=== PATIENT | female | born 1975 | race Caucasian/White ===

== ENCOUNTER 2020-11-12 13:21 | Outpatient (CLI) | payer OTHER, SELFPAY ==
--- NOTE | ~2020-11-12 | MMUS_ITS ---
EXAMINATION: MM diagnostic juventino BI w criss, US breast BI complete HISTORY: Breast pain and burning for 2 weeks after recent bug bite TECHNIQUE: Additional 3-D tomosynthesis images of the breasts were performed and synthetic 2-D images were generated. CAD analysis was submitted and interpreted. High resolution complete bilateral breas t ultrasound was performed. COMPARISON: No prior studies for comparison. BREAST PARENCHYMAL COMPOSITION: The breasts are heterogenously dense, which may obscure small masses. FINDINGS: MAMMOGRAPHIC FINDINGS: There are no suspicious masses, calcifications or architectural distortion in either breast to sugges t malignancy. ULTRASOUND: Complete bilateral breast ultrasound including all 4 quadrants: Normal heterogeneous echotexture with out focal solid or cystic mass. IMPRESSION: 1. No evidence for malignancy in either breast. 2. Routine yearly screening mammogram and regular clinical breast examination are recommended. BI-RADS Category 1: Negative Reviewed, dictated and finalized at location A. IMPRESSION: 1. No evidence for malignancy in either breast. 2. Routine yearly screening mammogram and regular clinical breast examination a re recommended. BI-RADS Category 1: Negative
== END 2020-11-12 13:22 | disposition home or self-care (01) ==
PROVIDERS: Visit Provider Nurse Practitioner
DX: N64.4 Mastodynia (principal)
CPT/HCPCS: 76641; 77062; 77066; G0279

== ENCOUNTER 2021-12-04 13:12 | Emergency (ER) | payer OTHER, SELFPAY ==
[2021-12-04 13:21] VITALS: BP 124/71; PULSE 83; RESP 18; TEMP 36.6; O2SAT 99
--- NOTE | 2021-12-04 14:02 | ED.ABDPAIN ---
HPI - Abdominal Pain General Chief Complaint: Abdominal Pain Stated Complaint: headache,abdominal pain Time Seen by Provider: 12/04/21 13:25 Source: patient and RN notes reviewed Mode of arrival: ambulatory Limitations: no limitations History of Present Illness HPI narrative: Patient presents today complaining of nausea, vomiting, diarrhea, abdominal pain, and headache since yesterday. She had 3 episodes of vomiting and diarrhea yesterday. She has had 2 episodes of diarrhea today with no vomiting, but persistent nausea. Denies any blood or mucus in her stool. Associated symptoms include body aches, fatigue, subjective fever, but states her thermometer never read a real fever. Reports that her daughter had similar symptoms last week and was told that she had a viral illness. Her abdominal pain is located on the left side and she currently rates it 5/10. She has a generalized headache that she currently rates 6/10 and had some intermittent blurred vision associated with it today. She initially confirms that this is her worst headache ever, but rescinds this when further questioned. States she used to have migraines for which she took Imitrex, but has not had a migraine for over 15 years. Denies dizziness, lightheadedness, photophobia. Patient has been taking some ibuprofen and Tylenol for her headache with some mild relief. History of irritable bowel syndrome. Related Data Home Medications Medication Instructions Recorded Confirmed amitriptyline 25 mg PO HS 12/04/21 12/04/21 buspirone 5 mg PO TID 12/04/21 12/04/21 cyanocobalamin (vitamin B-12) 1,000 mcg PO DAILY 12/04/21 12/04/21 ergocalciferol (vitamin D2) 1,250 mcg PO WEEKLY 12/04/21 12/04/21 Allergies Allergy/AdvReac Type Severity Reaction Status Date / Time metoclopramide [From Reglan] Allergy Unknown Verified 12/04/21 13:30 fluoxetine AdvReac Unknown DIARRHEA Verified 12/04/21 13:30 sertraline AdvReac Unknown INTENSIFIES Verified 12/04/21 13:30 ANXIETY Review of Systems Review of Systems: CONSTITUTIONAL: Denies chills, or sweats.+ Subjective fever, fatigue, body aches EYES: Denies redness, or discharge.+ Blurred vision ENT: Denies rhinorrhea, congestion, sore throat, or otalgia. CARDIOVASCULAR: Denies chest pain, palpitations, or edema. RESPIRATORY: Denies cough or dyspnea. GASTROINTESTINAL: + Abdominal pain, nausea, vomiting, diarrhea GENITOURINARY: Denies dysuria or hematuria. SKIN: Denies rash, itching, or wounds. MUSCULOSKELETAL: Denies back pain, joint pain, or myalgia. NEUROLOGIC: Denies numbness, tingling, or weakness.+ Headache PSYCH: Denies depression or anxiety. [facility] Past Medical History Medical History (Updated 12/04/21 @ 14:13 by Tatiana Calderon, LEGAL EXECUTIVE, ) History of migraine Irritable bowel syndrome Comments At time of signature, I have reviewed and agree with nursing past medical, surgical, social and family history unless otherwise noted. Please see nursing chart for further information. There is no relevant family history pertinent to the presenting complaint Exam Narrative: GENERAL: Well-appearing, well-nourished, and in no acute distress. HEAD: Normocephalic, atraumatic. EYES: EOMI. PERRL. No redness or drainage. Conjunctivae normal. ENT: Mucous membranes pink and moist. NECK: Normal AROM. Supple. No lymphadenopathy. CHEST: No respiratory distress. Clear to auscultation. HEART: Regular rate and rhythm. No murmur appreciated. Normal peripheral pulses. ABDOMEN: Soft, nondistended, normal active bowel sounds. Tenderness to epigastrium and left lower quadrant without rebound or guarding. MUSCULOSKELETAL: No bony tenderness. EXTREMITIES: Normal range of motion. No edema. SKIN: Warm, dry, no rash. Capillary refill normal. Normal skin turgor. NEURO: No focal deficits. Alert and oriented x3. Gait steady. PSYCH: Normal affect. No signs of depression or anxiety. Course Course Emergency Course: At this time I feel it appropr
== END 2021-12-04 14:06 | disposition left against medical advice (07) ==
PROVIDERS: Emergency Provider Nurse Practitioner; PCP Family Medicine
DX: R10.32 Left lower quadrant pain (principal); R51.9 Headache, unspecified
CPT/HCPCS: 81003; 99213; G0463

== ENCOUNTER 2022-09-15 21:59 | Emergency (ER) | payer OTHER, SELFPAY ==
--- NOTE | ~2022-09-15 | CT_ITS ---
EXAMINATION: CT abdomen pelvis w con INDICATION: Nausea, vomiting, diarrhea TECHNIQUE: Computed tomographic images of the abdomen and pelvis were obtained after the administrati on of 100 cc of Omnipaque 350 intravenous contrast. The dose-length product (DLP) was 316.78 mGy-cm. Automated exposure control and iterative reconstruction technique were employed. COMPARISON: None available FINDINGS: Minimal dependent atelectasis is present in the lung bases. The heart size is normal. The g allbladder is surgically absent. The liver, spleen, pancreas, and adrenal glands are normal. The kidn eys are unremarkable. No pathologically enlarged abdominal or pelvic lymph nodes are identified. No f ree intraperitoneal gas or evidence of bowel obstruction. There is liquid stool throughout the colon to the level of the rectum. There is a greater than normal number of fluid-filled, nondistended small bowel loops. IMPRESSION: 1. CT findings suggestive of enterocolitis. Reviewed, dictated and finalized at location B. [facility] [employer]
[2022-09-15 22:02] VITALS: BP 116/95; PULSE 80; RESP 20; TEMP 36.9; O2SAT 98
[2022-09-16] VITALS (19 sets, daily range): BP systolic 108–129; BP diastolic 58–89; PULSE 76–93; RESP 14–24; O2SAT 94–100
[2022-09-16 00:39] LABS: Basophils Percent Auto 0.2 % (0.2-1.2); Eosinophils Percent Auto 0.2 % (0-4.4); Hematocrit 44.9 % (37.0-47.0); Hemoglobin 15.3 g/dL (12.0-15.0); Immature Granulocyte Absolute 0.07 K/mm3 (0.00-0.031); Immature Granulocyte Percent A 0.5 % (0-0.5); Lymphocytes Absolute Auto 0.73 K/mm3 (0.9-3.2); Lymphocytes Percent Auto 5.2 % (18.3-44.2); Mean Corpuscular HGB Conc 34.1 g/dl (32-36); Mean Corpuscular Hemoglobin 30.5 pg (26-34); Mean Corpuscular Volume 89.4 fl (80-100); Mean Platelet Volume 8.8 fl (7.4-10.4); Monocytes Absolute Auto 0.5 K/mm3 (0.1-0.6); Monocytes Percent Auto 3.4 % (2.6-8.5); Neutrophils Absolute Auto 12.8 K/mm3 (1.3-6.7); Neutrophils Percent Auto 90.5 % (45.5-73.1); Platelet Count Result 345 k/mm3 (150-375); Red Blood Count 5.02 M/mm3 (4.2-5.4); Red Cell Distribution Width 13.1 % (11.5-14.5); White Blood Count 14.1 K/mm3 (4.5-10.0)
[2022-09-16 00:42] LABS: Appearance Urine Slightly Cloudy (Clear); Bilirubin Urine 1+ (Negative); Blood Urine 1+ (Negative); Color Urine Yellow (Yellow); Glucose Urine UA Negative (Negative); Ketones Urine Trace mg/dL (Negative); Leukocyte Esterase Ur Negative LEU/UL (Negative); Nitrate Urine Negative (Negative); Protein Urine 1+ mg/dL (Negative); Specific Grav Ur 1.025 (1.001-1.035); Urobilinogen Urine 0.2 mg/dL (<2.0)
[2022-09-16 00:49] LABS: Alanine Aminotransferase 27 U/L (6-35); Albumin Level 4.8 g/dL (3.5-5.1); Alkaline Phosphatase 102 U/L (38-126); Anion Gap 8 mmol/L (8-16); Aspartate Amino Transferase 26 U/L (14-36); Bilirubin,Total 0.7 mg/dL (0.2-1.3); Blood Urea Nitrogen 15 mg/dL (7-17); Calcium 8.8 mg/dL (8.4-10.2); Carbon Dioxide 27 mmol/L (22-30); Chloride 104 mmol/L (98-107); Estimated CRCL calculation 79 ml/min; Estimated Glomerular Filt Rate > 60; Glucose 117 mg/dL (65-110); Lipase 41 U/L (23-300); Potassium 3.5 mmol/L (3.4-5.0); Sodium 139 mmol/L (137-145)
[2022-09-16 00:55] LABS: Bacteria Urine 1+ /hpf; Mucus Urine Rare /lpf; Squamous Epithelial Cell Urine Moderate /hpf (Few); WBC Urine 0-3 /hpf
[2022-09-16 01:26] LABS: Add Urine Microscopic? YES
[2022-09-16] MEDS: SODIUM CHLORIDE 0.9% IV 1,000 ML 999 ML IV CONT ×2 (01:41→03:06)
[2022-09-16] MEDS: ONDANSETRON INJ 4 MG/2 ML VIAL IV PUSH (01:42)
[2022-09-16] MEDS: MORPHINE SULFATE (*CRX) 4 MG/ML INJ IV PUSH (01:44)
[2022-09-16] MEDS: PANTOPRAZOLE SODIUM IV 40 MG VIAL IV PUSH (01:45)
--- NOTE | 2022-09-16 01:54 | ED.NAVMDI ---
HPI - Nausea/Vomiting/Diarrhea General Chief complaint: Nausea/Vomiting/Diarrhea Stated complaint: vomiting/diarrhea Time Seen by Provider: 09/16/22 00:17 Source: patient Mode of arrival: ambulatory Limitations: no limitations History of Present Illness HPI Narrative: Patient is a 47-year-old female, with PMHx of IBS, who presents the ED with report of N/V/D. Patient reports she felt fine all day today and ate a salad from the hospital cafeteria. She developed diarrhea around 4 PM, along with diffuse epigastric and lower abdominal pain. She later developed nausea and vomiting and has had several episodes of diarrhea and vomiting. She tried taking a p.o. Zofran at home with minimal relief. Pain has persisted, which prompted her presentation. Patient has not tried anything for pain. Denies any fever, rectal bleeding, melena, hematemesis, urinary symptoms, recent cough or cold symptoms. Related Data Home Medications Medication Instructions Recorded Confirmed amitriptyline 25 mg tablet 25 mg PO HS 12/04/21 12/04/21 buspirone 5 mg tablet 5 mg PO TID 12/04/21 12/04/21 cyanocobalamin (vitamin B-12) 1,000 mcg PO DAILY 12/04/21 12/04/21 1,000 mcg tablet ergocalciferol (vitamin D2) 1,250 1,250 mcg PO WEEKLY 12/04/21 12/04/21 mcg (50,000 unit) capsule Allergies Allergy/AdvReac Type Severity Reaction Status Date / Time metoclopramide [From Reglan] Allergy Unknown Verified 09/15/22 22:01 sertraline AdvReac Unknown INTENSIFIES Verified 09/15/22 22:01 ANXIETY Review of Systems Review of Systems: CONSTITUTIONAL: Denies fever, chills, or sweats. CARDIOVASCULAR: Denies chest pain. RESPIRATORY: Denies cough or dyspnea. GASTROINTESTINAL: See HPI. GENITOURINARY: Denies dysuria or hematuria. All systems reviewed & are unremarkable except as noted in HPI and below PMFSH Past Medical History Medical History History of migraine Irritable bowel syndrome Surgical History Surgical History No pertinent past surgical history Social History Social History Smoking status: Never smoker Exam Narrative: GENERAL: Mildly ill appearing, well-nourished, non-toxic, in no acute distress. HEAD: Normocephalic, atraumatic. NECK: Supple. No adenopathy, no masses. RESPIRATORY: Airway patent, respirations nonlabored. Clear to auscultation bilaterally, no rales, rhonchi, wheezing. CARDIOVASCULAR: Regular rate and rhythm without murmurs, rubs, or gallops. Peripheral pulses 2+ and equal bilaterally. ABDOMINAL: Soft, tenderness to palpation in epigastric/right upper quadrant/right lower quadrant, nondistended, no hepatosplenomegaly. Normoactive BS. MUSCULOSKELETAL: Moves all extremities. Strength/ROM intact without gross deformities. SKIN: Warm, dry, normal color. No rashes. NEURO: A&O X3. Speech clear. Cranial nerves II-XII grossly intact. Steady gait. No ataxic movements. PSYCHIATRIC: Appropriate mood and affect. Normal interaction. Course Vital Signs Vital signs: Vital Signs Temperature 98.4 F 09/15/22 22:02 Pulse Rate 80 09/15/22 22:02 Respiratory Rate 20 09/15/22 22:02 Blood Pressure 116/95 H 09/15/22 22:02 Pulse Oximetry 98 09/15/22 22:02 Oxygen Delivery Room Air 09/15/22 22:02 Temperature 98.4 F 09/15/22 22:02 Pulse Rate 83 09/16/22 03:01 Respiratory Rate 19 09/16/22 03:01 Blood Pressure 108/58 L 09/16/22 01:49 Pulse Oximetry 94 09/16/22 03:01 Oxygen Delivery Room Air 09/15/22 22:02 MDM - Nausea/Vomiting/Diarrhea MDM Narrative Medical decision making narrative: Patient presented to ED with 1 day history of abdominal pain, N/V/D. Patient's vital stable upon arrival. Several areas of tenderness on abdominal exam. CBC with mild leukocytosis of 14.1, could be slightly reactive from recent vomiting. CMP
[2022-09-16] MEDS: AMOXICILLIN/CLAVULANATE K 875-125 MG TAB 1 TABLET PO (04:49)
== END 2022-09-16 05:10 | disposition home or self-care (01) ==
PROVIDERS: Emergency Medicine; Emergency Provider Physician Assistant; PCP Family Medicine
DX: K52.9 Noninfective gastroenteritis and colitis, unspecified (principal); K58.9 Irritable bowel syndrome, unspecified
CPT/HCPCS: 36415; 74177; 80053; 81001; 81025; 83690; 85025; 96361; 96374; 96375; 99284; A9270; C9113; J2270; J2405; J7030; Q9967

== ENCOUNTER 2022-10-01 11:25 | Outpatient (CLI) | payer OTHER, SELFPAY ==
[2022-10-06 14:10] LABS: Gliadin AB, IgG <1.0 U/mL (<15.0); TTG IGA AB <1.0 U/mL (<15.0)
== END 2022-10-01 11:26 | disposition home or self-care (01) ==
LOC: ANHLAB 11:27
PROVIDERS: PCP Family Medicine; Visit Provider Nurse Practitioner
DX: K58.0 Irritable bowel syndrome with diarrhea (principal)
CPT/HCPCS: 36415; 83516; 86255

== ENCOUNTER → 2023-02-25 08:09 | Outpatient (CLI) | payer OTHER, SELFPAY ==
--- NOTE | ~2023-02-25 | MMUS_ITS ---
EXAMINATION: MM diagnostic juventino BI w criss, US breast RT limited HISTORY: Palpable lump of the upper right breast at 12:00 TECHNIQUE: Craniocaudal, mediolateral, and mediolateral oblique 3-D tomosynthesis images of the andrea ts were performed and synthetic 2-D images were generated. CAD analysis was submitted and interpreted . High resolution limited right breast ultrasound was performed. COMPARISON: 11/12/2020 BREAST PARENCHYMAL COMPOSITION: The breasts are heterogeneously dense, which may obscure small masses . FINDINGS: MAMMOGRAPHIC FINDINGS: No suspicious mass, calcification, or architectural distortion are identified in either breast to sug gest malignancy. There has been no suspicious interval change. No mammographic correlate is identifie d for the reported palpable abnormality of the right breast. ULTRASOUND: There is no evidence of focal abnormal solid or cystic mass in the vicinity of the reported palpable abnormality of the right breast. IMPRESSION: 1. No specific mammographic or sonographic correlate is identified for the reported palpable abnormal ity of concern concern in the right breast. Further evaluation at this time should be based on clinic al assessment. Continued follow-up physical examination is recommended. 2. Recommend routine screening mammography in one year. BI-RADS Category 1: Negative Reviewed, dictated and finalized at location A. IMPRESSION: 1. No specific mammographic or sonographic correlate is identified for the repo rted palpable abnormality of concern concern in the right breast. Further evalu ation at this time should be based on clinical assessment. Continued follow-up physical examination is recommended. 2. Recommend routine screening mammography in one year. BI-RADS Category 1: Negative
== END ==
PROVIDERS: PCP Family Medicine; Visit Provider Obstetrics & Gynecology
DX: N63.10 Unspecified lump in the right breast, unspecified quadrant (principal)
CPT/HCPCS: 76642; 77062; 77066; G0279

== ENCOUNTER 2023-07-01 17:06 | Outpatient (CLI) | payer OTHER, SELFPAY ==
[2023-07-05 08:59] LABS: LH 9.7
[2023-07-05 09:00] LABS: FSH 17.7
[2023-07-05 09:02] LABS: Progesterone 0.5
[2023-07-05 09:31] LABS: Sex Hormone Binding Globulin 16
[2023-07-05 09:32] LABS: DHEA-Sulfate 295
[2023-07-07 16:06] LABS: Testosterone Free 5.4; Testosterone Total 29
[2023-07-11 09:09] LABS: Estradiol, Ultrasensitive 59
== END 2023-07-01 17:07 | disposition home or self-care (01) ==
LOC: ANHLAB 17:07
PROVIDERS: PCP Family Medicine; Visit Provider Obstetrics & Gynecology
DX: N93.9 Abnormal uterine and vaginal bleeding, unspecified (principal)
CPT/HCPCS: 36415; 82627; 82670; 83001; 83002; 84144; 84146; 84270; 84402; 84403; 84443

== ENCOUNTER 2023-09-14 21:06 | Emergency (ER) | payer OTHER, SELFPAY ==
[2023-09-14 21:18] VITALS: BP 144/73; PULSE 89; RESP 18; TEMP 36.6; O2SAT 100
[2023-09-14 21:35] VITALS: O2SAT 100
[2023-09-14 21:52] LABS: Strep Group A RT-PCR NOT DETECTED (Negative)
[2023-09-14 22:06] LABS: Influenza A QL RT-PCR Positive (Negative); Influenza B QL RT-PCR Negative (Negative); RSV RNA, RT-PCR Negative (Negative); SARS-CoV-2 RNA PCR Negative (Negative)
--- NOTE | 2023-09-14 22:49 | ED.GENADULT ---
HPI - General Adult General Chief complaint: Upper Respiratory Infection Stated complaint: fever, nauseaous, bodyaches, sore throat Time Seen by Provider: 09/14/23 21:56 Source: patient Mode of arrival: ambulatory Limitations: no limitations History of Present Illness HPI narrative: This is a 48-year-old female who presents to the ED with chief complaint of URI symptoms for the past 3 days. Reports cough, congestion, sore throat, fevers and chills. She reports being at around someone who was known to have flu A. 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 Denies abdominal pain, chest pain, shortness of breath, neck pain. Related Data Home Medications Medication Instructions Recorded Confirmed amitriptyline 25 mg tablet 25 mg PO HS 12/04/21 10/01/22 buspirone 5 mg tablet 5 mg PO TID 12/04/21 10/01/22 cyanocobalamin (vitamin B-12) 1,000 mcg PO DAILY 12/04/21 10/01/22 1,000 mcg tablet ergocalciferol (vitamin D2) 1,250 1,250 mcg PO WEEKLY 12/04/21 10/01/22 mcg (50,000 unit) capsule Allergies Allergy/AdvReac Type Severity Reaction Status Date / Time metoclopramide [From Reglan] Allergy Unknown Verified 10/01/22 10:32 sertraline AdvReac Unknown INTENSIFIES Verified 10/01/22 10:32 ANXIETY Review of Systems Review of Systems: All systems as dictated in [facility] Past Medical History Medical History (Updated 09/15/23 @ 00:00 by Background Daemon) Belching Dyspepsia Enterocolitis Gas bloat syndrome History of migraine Irritable bowel syndrome Irritable bowel syndrome with diarrhea Obesity Surgical History Surgical History No pertinent past surgical history Social History Social History Smoking status: Never smoker Exam Narrative: GENERAL: Well-appearing, well-nourished, and in no acute distress. HEAD: Normocephalic, atraumatic. EYES: PERRLA and EOMI. ENT: Nares clear, no rhinorrhea or epistaxis. Mucous membranes moist. Oropharynx without tonsillar hypertrophy exudate or other lesions. NECK: Supple. No adenopathy or masses. CHEST: No respiratory distress. Clear to auscultation. No wheezes rales or rhonchi HEART: Regular rate and rhythm. No murmur heard. Normal peripheral pulses. ABDOMEN: Soft, nontender, nondistended, normal active bowel sounds. MSK: Normal range of motion. No edema. SKIN: Warm, dry, no rash. NEURO: Alert and oriented x3. No focal deficits. PSYCH: Normal mood and affect. Course Vital Signs Vital signs: Vital Signs Temperature 97.9 F 09/14/23 21:18 Pulse Rate 89 09/14/23 21:18 Respiratory Rate 18 09/14/23 21:18 Blood Pressure 144/73 H 09/14/23 21:18 Pulse Oximetry 100 09/14/23 21:18 Oxygen Delivery Room Air 09/14/23 21:18 Temperature 98.7 F 09/14/23 23:12 Pulse Rate 71 09/14/23 23:12 Respiratory Rate 15 09/14/23 23:12 Blood Pressure 126/78 09/14/23 23:12 Pulse Oximetry 100 09/14/23 23:12 Oxygen Delivery Room Air 09/14/23 21:35 Medical Decision Making MDM Narrative Medical decision making narrative: This is a 48-year-old female with URI and flu-like symptoms for the past several days. Patient's daughter was recently diagnosed with flu A. Vitals are normal. Exam is benign. Symptoms are consistent with viral syndrome. Swabs are positive for flu A. She is oxygenating well. Pt will be discharged in stable condition. Return precautions given and supportive measures discussed. Pt is understanding and agreeable with plan for discharge and follow-up with PCP. Vital Signs Vital Signs: Vital Signs Temperature 97.9 F 09/14/23 21:18 Pulse Rate 89 09/14/23 21:18 Respiratory Rate 18 09/14/23 21:18 Blood Pressure 144/73 H 09/14/23 21:18 Pulse Oximetry 100 09/14/23 21:18 Oxygen Delivery Room Air 09/14/23 21:18 Temperature 98.7 F 09/14/23 23:12 Pulse Rate 71 09/14
[2023-09-14 23:12] VITALS: BP 126/78; PULSE 71; RESP 15; TEMP 37.1; O2SAT 100
== END 2023-09-14 23:13 | disposition home or self-care (01) ==
PROVIDERS: Emergency Medicine; Emergency Provider Physician Assistant; PCP Family Medicine
DX: J10.1 Influenza due to other identified influenza virus with other respiratory manifestations (principal); Z20.822 Contact with and (suspected) exposure to COVID-19
CPT/HCPCS: 87637; 87651; 99283

== ENCOUNTER 2023-09-27 09:54 | Emergency (ER) | payer OTHER, SELFPAY ==
[2023-09-27 10:33] VITALS: BP 119/63; PULSE 80; RESP 18; TEMP 36.3; O2SAT 100
[2023-09-27 10:36] VITALS: BP 119/63; PULSE 80; RESP 18; TEMP 36.3; O2SAT 100
--- NOTE | 2023-09-27 10:49 | ED.URI ---
HPI - URI/Sore Throat General Chief Complaint: Upper Respiratory Infection Stated Complaint: sorethroat,cough,congestion Time Seen by Provider: 09/27/23 10:49 Source: patient, RN notes reviewed and old records reviewed Mode of arrival: ambulatory Limitations: no limitations History of Present Illness HPI Narrative: 48-year-old female presents to the [facility] with 2 days of sore throat, cough, congestion, ears clogged, headache and body aches. Reports that she was exposed to flu a and strep test week Patient also reports that she was flu A positive 2 weeks ago Related Data Home Medications Medication Instructions Recorded Confirmed amitriptyline 25 mg tablet 25 mg PO HS 12/04/21 10/01/22 fluoxetine 20 mg tablet mg 09/27/23 09/27/23 ondansetron 8 mg disintegrating 8 mg PO Q4-6H nausea and vomiting 09/27/23 tablet Allergies Allergy/AdvReac Type Severity Reaction Status Date / Time metoclopramide [From Reglan] Allergy Unknown Verified 09/27/23 10:34 sertraline AdvReac Unknown INTENSIFIES Verified 09/27/23 10:34 ANXIETY Review of Systems Review of Systems: All systems reviewed & are unremarkable except as noted in HPI and below Constitutional: Constitutional: Reports no additional constitutional complaints, Reports body ache(s), Denies fever(s) and Reports headache(s) Eyes: Eyes: Reports no additional eye complaints ENT: Reports as per HPI, Reports otalgia and Reports sore throat Cardiovascular: Cardiovascular: Reports no additional cardiovascular complaints, Denies chest pain and Denies dyspnea Respiratory: Respiratory: Reports as per HPI, Denies chest congestion, Reports cough and Denies dyspnea Gastrointestinal: Gastrointestinal: Reports no additional gastrointestinal complaints, Denies abdominal pain, Denies nausea and Denies vomiting Musculoskeletal: Musculoskeletal: Reports no additional musculoskeletal complaints Integumentary/Breasts: Skin/Breast: Reports system reviewed and no additional complaints, except as docu Neurologic: Reports system reviewed and no additional complaints, except as documented Psychiatric: Psychiatric: Reports no additional psychiatric complaints Allergic/Immunologic: Allergic/Immunologic: Reports no additional allergic/immunologic complaints PMFSH Past Medical History Medical History Belching Dyspepsia Enterocolitis Gas bloat syndrome History of migraine Irritable bowel syndrome Irritable bowel syndrome with diarrhea Obesity Surgical History Surgical History No pertinent past surgical history Social History Social History Smoking status: Never smoker Comments At the time of my signature, I reviewed and agree with the nursing past medical, surgical, social, and family history. There is no relevant family history pertinent to the patient complaint. Exam Const: General: cooperative, healthy appearing, comfortable, no acute distress, well developed, alert and well nourished Nutritional Appearance: well nourished Orientation/consciousness: patient oriented x3 Limitations: no limitations HENMT: Head: normal to inspection Ears: hearing grossly normal bilaterally, external ears normal, TM's normal bilaterally, EAC's normal, mastoids normal and no periauricular adenopathy Face/Nose/Sinus: Normal external nose present, Normal nares present, Normal nasal mucous membranes and turbinates present, normal facial exam and face symmetric Face and sinus: normal facial exam and face symmetric Mouth: Yes Normal oral and palatal mucosa present, Yes lip normal and Yes moist mucous membranes Throat: posterior oropharynx normal, tonsils normal, uvula midline, postnasal drainage and no uvular edema Eyes: General: appearance normal, both eyes and all related structures Alignment and Position: alignment normal Perio
== END 2023-09-27 11:05 | disposition home or self-care (01) ==
PROVIDERS: Emergency Provider Nurse Practitioner; PCP Family Medicine
DX: J06.9 Acute upper respiratory infection, unspecified (principal); R09.82 Postnasal drip; J32.9 Chronic sinusitis, unspecified; Z20.822 Contact with and (suspected) exposure to COVID-19; E66.9 Obesity, unspecified; Z68.27 Body mass index [BMI] 27.0-27.9, adult
CPT/HCPCS: 87081; 87426; 87804; 87880; 99213; G0463

== ENCOUNTER 2023-11-06 17:16 | Emergency (ER) | payer OTHER, SELFPAY ==
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
[2023-11-06 17:22] VITALS: BP 143/78; PULSE 75; RESP 20; TEMP 36.6; O2SAT 100
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
[2023-11-06 18:12] LABS: Basophils Percent Auto 0.5 % (0.2-1.2); Eosinophils Absolute Auto 0.2 K/mm3 (0-0.3); Eosinophils Percent Auto 2.4 % (0-4.4); Hematocrit 44.2 % (37.0-47.0); Hemoglobin 14.8 g/dL (12.0-15.0); Immature Granulocyte Absolute 0.02 K/mm3 (0.00-0.031); Immature Granulocyte Percent A 0.2 % (0-0.5); Lymphocytes Absolute Auto 2.57 K/mm3 (0.9-3.2); Lymphocytes Percent Auto 29.4 % (18.3-44.2); Mean Corpuscular HGB Conc 33.5 g/dl (32-36); Mean Corpuscular Hemoglobin 29.5 pg (26-34); Mean Platelet Volume 8.6 fl (7.4-10.4); Monocytes Absolute Auto 0.6 K/mm3 (0.1-0.6); Monocytes Percent Auto 6.8 % (2.6-8.5); Neutrophils Absolute Auto 5.3 K/mm3 (1.3-6.7); Neutrophils Percent Auto 60.7 % (45.5-73.1); Platelet Count Result 320 k/mm3 (150-375); Red Blood Count 5.02 M/mm3 (4.2-5.4); Red Cell Distribution Width 13.3 % (11.5-14.5); White Blood Count 8.7 K/mm3 (4.5-10.0)
[2023-11-06 18:22] LABS: Alanine Aminotransferase 22 U/L (6-35); Albumin Level 4.4 g/dL (3.5-5.1); Alkaline Phosphatase 96 U/L (38-126); Anion Gap 7 mmol/L (4-12); Aspartate Amino Transferase 25 U/L (14-36); Bilirubin,Total 0.5 mg/dL (0.2-1.3); Blood Urea Nitrogen 9 mg/dL (7-17); Calcium 9.2 mg/dL (8.4-10.2); Carbon Dioxide 23 mmol/L (22-30); Chloride 107 mmol/L (98-107); Estimated CRCL calculation 88 ml/min; Estimated Glomerular Filt Rate > 60; Glucose 94 mg/dL (65-110); Potassium 3.8 mmol/L (3.4-5.0); Sodium 137 mmol/L (137-145)
[2023-11-06] MEDS: ACETAMINOPHEN 500 MG TABLET 1000 MG PO (18:23)
[2023-11-06] MEDS: CYCLOBENZAPRINE HCL 10 MG TABLET PO (18:23)
[2023-11-06 18:25] LABS: Lipase 46 U/L (23-300)
--- NOTE | 2023-11-06 19:37 | PC.NURSE ---
this rn assumed care of patient. this rn took patient report from KIKO johnson.
[2023-11-06 20:06] VITALS: BP 120/64; PULSE 98; RESP 18; O2SAT 100
== END 2023-11-06 20:15 | disposition home or self-care (01) ==
PROVIDERS: Emergency Provider Physician Assistant; PCP Family Medicine
DX: S16.1XXA Strain of muscle, fascia and tendon at neck level, initial encounter (principal); S49.91XA Unspecified injury of right shoulder and upper arm, initial encounter; S69.91XA Unspecified injury of right wrist, hand and finger(s), initial encounter; S39.92XA Unspecified injury of lower back, initial encounter; R07.89 Other chest pain; R10.30 Lower abdominal pain, unspecified; K58.0 Irritable bowel syndrome with diarrhea; F41.9 Anxiety disorder, unspecified; F32.A Depression, unspecified; E66.9 Obesity, unspecified; Z68.28 Body mass index [BMI] 28.0-28.9, adult; V44.5XXA Car driver injured in collision with heavy transport vehicle or bus in traffic accident, initial encounter
CPT/HCPCS: 36415; 71260; 72125; 72129; 72132; 73030; 73110; 74177; 80053; 81025; 83690; 85025; 99284; A9270; Q9967

== ENCOUNTER 2024-02-24 12:47 | Emergency (ER) | payer OTHER, SELFPAY ==
[2024-02-24 12:51] VITALS: BP 131/71; PULSE 82; RESP 17; O2SAT 98
[2024-02-24 13:00] VITALS: TEMP 36.6
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
[2024-02-24 13:34] LABS: Basophils Percent Auto 0.3 % (0.2-1.2); Eosinophils Percent Auto 0.4 % (0-4.4); Hematocrit 44.3 % (37.0-47.0); Hemoglobin 15.1 g/dL (12.0-15.0); Immature Granulocyte Absolute 0.02 K/mm3 (0.00-0.031); Immature Granulocyte Percent A 0.2 % (0-0.5); Lymphocytes Absolute Auto 1.78 K/mm3 (0.9-3.2); Lymphocytes Percent Auto 17.9 % (18.3-44.2); Mean Corpuscular HGB Conc 34.1 g/dl (32-36); Mean Corpuscular Hemoglobin 30.5 pg (26-34); Mean Corpuscular Volume 89.5 fl (80-100); Monocytes Absolute Auto 0.4 K/mm3 (0.1-0.6); Monocytes Percent Auto 4.1 % (2.6-8.5); Neutrophils Absolute Auto 7.7 K/mm3 (1.3-6.7); Neutrophils Percent Auto 77.1 % (45.5-73.1); Platelet Count Result 351 k/mm3 (150-375); Red Blood Count 4.95 M/mm3 (4.2-5.4); Red Cell Distribution Width 13.4 % (11.5-14.5)
[2024-02-24 13:43] LABS: Acetaminophen < 10 ug/mL (10-30); Alanine Aminotransferase 20 U/L (6-35); Albumin Level 4.5 g/dL (3.5-5.1); Alkaline Phosphatase 86 U/L (38-126); Anion Gap 11 mmol/L (4-12); Aspartate Amino Transferase 21 U/L (14-36); Bilirubin,Total 0.4 mg/dL (0.2-1.3); Blood Urea Nitrogen 8 mg/dL (7-17); Calcium 8.8 mg/dL (8.4-10.2); Carbon Dioxide 24 mmol/L (22-30); Chloride 104 mmol/L (98-107); Estimated CRCL calculation 97 ml/min; Estimated Glomerular Filt Rate > 60; Ethanol < 10 mg/dL (<10); Glucose 102 mg/dL (65-110); Potassium 3.9 mmol/L (3.4-5.0); Sodium 139 mmol/L (137-145)
[2024-02-24 13:44] LABS: Salicylate < 1.0 mg/dL (2-20)
[2024-02-24 13:48] LABS: BEDSIDEPREGUCG Negative
[2024-02-24 14:24] LABS: Appearance Urine Cloudy (Clear); Bacteria Urine 1+ /hpf; Bilirubin Urine Negative (Negative); Blood Urine Negative (Negative); Color Urine Yellow (Yellow); Glucose Urine UA Negative (Negative); Ketones Urine Trace mg/dL (Negative); Leukocyte Esterase Ur Negative LEU/UL (Negative); Mucus Urine Present /lpf; Need Manual Microscopic Reviewed; Nitrate Urine Negative (Negative); Non Pathogenic Casts 0-2; Protein Urine Trace mg/dL (Negative); Specific Grav Ur 1.025 (1.001-1.035); Squamous Epithelial Cell Urine Many /hpf (Few); WBC Urine 0-5 /hpf (0-3)
[2024-02-24 14:26] LABS: Add Urine Microscopic? YES
[2024-02-24 15:31] LABS: SARS-CoV-2 RNA PCR Negative (Negative)
[2024-02-24 16:55] LABS: Barbiturate Screen Urine Negative (Negative)
[2024-02-24 17:00] LABS: Amphetamine Screen Urine Negative (Negative); Cannabinoid Screen Urine Negative (Negative); Methadone Screen Urine Negative (Negative); Opiate Screen Urine Negative (Negative); Phencyclidine Screen Urine Negative (Negative)
[2024-02-24 17:23] LABS: Benzodiazepines Screen Urine Negative (Negative)
[2024-02-24 17:32] LABS: Cocaine Screen Urine Negative (Negative)
== END 2024-02-24 17:21 | disposition home or self-care (01) ==
PROVIDERS: Emergency Provider Emergency Medicine; PCP Family Medicine
DX: F41.9 Anxiety disorder, unspecified (principal); Z11.52 Encounter for screening for COVID-19; K58.0 Irritable bowel syndrome with diarrhea; E66.9 Obesity, unspecified; Z68.31 Body mass index [BMI] 31.0-31.9, adult; Z79.899 Other long term (current) drug therapy
CPT/HCPCS: 36415; 80053; 80307; 81001; 81025; 84443; 85025; 87635; 99284

== ENCOUNTER 2024-10-05 19:30 | Emergency (ER) | payer OTHER, SELFPAY ==
--- NOTE | 2024-10-05 19:31 | ED.URI ---
HPI - URI/Sore Throat General Chief Complaint: Upper Respiratory Infection Stated Complaint: cough Time Seen by Provider: 10/05/24 19:31 Source: patient Mode of arrival: ambulatory Limitations: no limitations History of Present Illness HPI Narrative: Tori is a 49-year-old female patient presenting to the clinic today with complaints of a cough, runny nose, congestion, chest burning, sore throat, headache, body aches, fever, chills, chest congestion, fatigue, and diarrhea x3 days. She reports highest fever was 101.2? F. elicited complaint: fever, cough, sore throat and nasal congestion Related Data Home Medications ?Medication ?Instructions ?Recorded ?Confirmed ?Last Taken ?Type amitriptyline 25 mg tablet 25 mg PO HS 12/04/21 10/01/22 Unknown History albuterol sulfate 90 mcg/actuation inhalation 10/05/24 Unknown History aerosol inhaler Allergies Allergy/AdvReac Type Severity Reaction Status Date / Time escitalopram (From Lexapro) Allergy Mild Unknown Verified 10/05/24 19:41 metoclopramide (From Reglan) AdvReac Mild Unknown Verified 10/05/24 19:41 sertraline AdvReac Unknown INTENSIFIES Verified 10/05/24 19:41 ANXIETY Review of Systems Review of Systems: Pertinent positives per HPI. Patient denies any rash, visual changes, dizziness, shortness of breath, palpitations, nausea, vomiting, diarrhea, constipation, abdominal pain, or any urinary issues. PMFSH Past Medical History Medical History Obesity Dyspepsia Enterocolitis Belching Gas bloat syndrome Irritable bowel syndrome with diarrhea History of migraine Irritable bowel syndrome Surgical History Surgical History No pertinent past surgical history Social History Social History Smoking status: Current every day smoker Tobacco type: cigarettes and e-cigarettes/vaping Substance use type: does not use Comments At the time of my signature, I reviewed and agree with the nursing past medical, surgical, social, and family history. There is no relevant family history pertinent to the patient complaint. Exam Narrative: General: Well-developed, well nourished, in no apparent distress Head: Normocephalic, atraumatic Eyes: Pupils equally round and reactive to light bilaterally, EOM intact, sclera and conjunctive clear, no discharge, lids normal Ears: TMs intact and congested, ear canals clear, no drainage, grossly hearing normal. Nose: Nares patent, clear nasal discharge, mild inflammation, no sinus tenderness. Mouth: Oral pharynx without lesions or masses, good dentition, MMM. Postnasal drip Neck: Supple, trachea midline, no enlargement of anterior or posterior cervical nodes, no thyroid masses or goiter palpable. Cardio: Regular rate and rhythm, s1 and s2 normal, no murmur appreciated. Resp: Clear to auscultation bilaterally, no rhonchi, rales, wheezing or rubs Course Course Emergency Course: Portions of this record may have been created with voice recognition software. Level of Care: Express Care Visit Vital Signs Vital signs: Vital Signs Temperature 36.6 C 10/05/24 19:40 Pulse Rate 95 10/05/24 19:40 Respiratory Rate 18 10/05/24 19:40 Blood Pressure 114/71 10/05/24 19:40 Pulse Oximetry 100 10/05/24 19:40 Oxygen Delivery Room Air 10/05/24 19:40 Temperature 36.6 C 10/05/24 19:40 Pulse Rate 95 10/05/24 19:40 Respiratory Rate 18 10/05/24 19:40 Blood Pressure 114/71 10/05/24 19:40 Pulse Oximetry 100 10/05/24 19:40 Oxygen Delivery Room Air 10/05/24 19:40 Vital signs reviewed MDM - URI/Sore Throat MDM Narrative Medical decision making narrative: At the time of visit patient is resting comfortably on the exam table. Patient appears to be nontoxic. Labs: Influenza and COVID testing was performed were negative in the clinic today. Plan: I suspect patient has flu-like illness. Supportive measures were discussed with the patient and they voiced understanding discharge instructions and agrees to treatment plan. Return precautions reviewed Differential Diagnosis Differential diagnosis: Likely upper respiratory infection, otitis media, sinusitis, viral infection, bronchitis, influenza, pharyngitis and other (COVID) Discharge Plan Discharge Clinical Impression: Influenza-like illness Patient Disposition: Home, Self-Care Condition: Stable Instructions: Antibiotic Form, Influenza (ED) Additional Instructions: COVID and influenza testing was negative in the clinic today. Lung sounds are clear and there is no sign of bacterial infection. May take DayQuil/NyQuil for cold/flu symptoms Cool-mist humidifier at the bedside Continue current medications as prescribed Increase fluids and stay well hydrated Tylenol/motrin for pain/fever Flonase and OTC antihistamines as directed Vicks vapor rub to open sinuses Sinus rinses for congestion Cepacol spray, cough drops, throat lozenges, warm tea with honey/lemon, gargle salt water to soothe throat BRAT diet for diarrhea Clear liquids x 24 hours then advance as tolerated for nausea/vomiting Go to the ED if you develop a worsening in your condition- high fever not controlled by Tylenol or Motrin, dehydration, weakness, lethargy, shortness of breath, or chest pain. Follow up with your PCP in 3-5 days if symptoms persist. Patient Language: [place] Arabian Prescriptions: No Action amitriptyline 25 mg tablet 25 mg PO HS albuterol sulfate 90 mcg/actuation HFA aerosol inhaler INHALATION Follow-up/Referrals: UNKNOWN,DOCTOR [Non-Staff] - Stand Alone Forms: Work/School Release IP Time of Disposition: 19:59 Quality NIHSS Nursing Documentation ED NIHSS nursing documentation: reviewed/agree
--- OUTSIDE RECORDS SUMMARY | 2024-10-05 19:33 | XMS_ITS | Patient Health Record ---
Author Organization [facility] [employer] Address [address] [facility] [address] [place] [address] Care Team Providers Care Senior Accountant Analyst Name Role Phone Sandra Thakur Unavailable [phone] Allergies Allergen (clinical drug ingredient) Drug/Non Drug Allergy documented on EMR Reaction Allergy Type Onset Date Status citalopram CeleXA hives Drug Allergy Active escitalopram Lexapro Unknown Drug Allergy Acti ve metoclopramide Reglan Unknown Drug Allergy Ac tive sertraline Zoloft Unknown Drug Allergy Active Results Component Value Reference Range Notes UDT Reviewed date:03/01/2024 03:20:53 PM Interpretation: Performing Lab: Notes/Report: THC pos 0 - 50 ng/ml Cocaine neg 0 - 300 ng/ml Amphetamine neg 0 - 1000 ng/ml Buprenorphine (BUP) neg 0 - 10 ng/ml Secobarbital (Bar) neg 0 - 300 ng/ml Oxazepam (BZO) neg 0 - 300 ng/ml 8-imgansvfdh-1,0-skadcyne-1,3-diphenylpyrrolidine (MADHAV P) neg 0 - 300 ng/ml Methamphetamine (MET) neg 0 - 1000 ng/ml Methylenedioxymethamphetamine (MDMA) neg 0 - 500 ng/ml Morphine (MOP 300/[id number]) neg 0 - 300 ng/ml Methadone (MTD) neg 0 - 300 ng/ml Phencyclidine (PCP) neg 0 - 25 ng/ml Nortriptyline (TCA) neg 0 - 1000 ng/ml Oxycodone neg 0 - 300 ng/ml x neg 0 - 300 ng/ml Reason For Referral Reason poor coping, has bee n out of work d/t recent event; adjustment d/o, MDD, KM, panic attacks, insomnia Diagnosis 1 Adjustment disorder with mixed anxiety and depressed mood (F43.23) Diagnosis 2 Moderate recurrent m ajor depression (F33.1) Diagnosis 3 Generalized anxiety disorder (F41.1) Referral Organization [facility] Referring Provider First Name Sandra Referring Provider Last Name Blaze Referring Provider Speciality Nurse Dory isaacs Referred Provider [facility] Referred Provider Specialty Psychiatry General Notes Sandra Thakur A 03/01/2024 05:18:35 PM >fax successful per [facility] Referral Priority Routine Medications Medication SIG (Take, Route, Frequency, Duration) Notes Start Date End Date Status busPIRone HCl 5 MG 1 tablet Oral Twice a day for 90 days Active FLUoxetine HCl 20 MG 1 capsule Oral Once a day for 90 days Active SUMAtriptan Succinate 100 MG TAKE 1 TABL ET BY MOUTH NEEDED FOR HEADACHE. MAY REPEAT IN 2 HOURS. MAX OF 2 PER DAY Oral for 5 Days Active traZODone HCl 50 MG 1 tablet at bedtime as needed Oral Once a day for 90 days Active Amitriptyline HCl 25 MG 1 tablet in the evening Oral Once a day for 90 days Active lamoTRIgine 25 MG 1 tab at bedtime x 2 weeks, then 2 tabs at bedtime Oral once a day 03/01/2024 Active Albuterol Sulfate HFA 108 (90 Base) MCG/ACT INHALE 2 PUFFS BY MOUTH EVERY 4 TO 6 HOURS NEEDED Inhalation for 16 Days Active Ibuprofen 800 MG Oral for 6 Days Active Social History Tobacco Use: Social History Observation Description Date Details (start date - stop date) Current Smoker NA - NA Sex Assigned At : Social History Observation Description Sex Assigned At Female Tobacco Control (Standard) Question Answer Notes Tobacco use: Current smoker How often do you smoke cigarettes? Every day How many cigarettes a day do you smoke? 6-10 How soon after you wake up d o you smoke your first cigarette? Within 5 minutes Are you interested in quitting? Thinking about q uitting AUDIT-C (Standard) Question Answer Notes Did you have a drink contain ing alcohol in the past year? Yes How often did you have six o r more drinks on one occasion in the past year? Never (0 point) How many drinks did you have on a typical day when you were drinking in the past year? 1 or 2 drinks (0 point) How often did you have a dri nk containing alcohol in the past year? Monthly or less (1 point) Section Notes: Lives in [place], her little br other and his and son moved in, and my boyfriend and one of my daughters. The other daughter is adrian's girl. from of 16 yrs, she moved out in September. 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 Problems Problem Type SNOMED Code ICD Code Onset Dates Problem Status W/U Status Risk Notes Problem Generalized anxiety disorder (75555330) Generalized anxiety disorder (F41.1) Active confirmed Problem [id number] Adjustment disorder with mixed anxiety and depressed mood (F43.23) Active confirmed Problem Insomnia disorder related to another mental disorder (92205769) Insomnia related to another mental disorder (F51.05) Active confirmed Problem Panic disorder (573061127) Panic attacks (F41.0) Active confirmed Problem Moderate recurrent major depression (63617153) Moderate recurrent major depression (F33.1) Active confirmed Vital Signs Heart Rate 81 /min 03/01/2024 Height-cm 157.48 cm 03/01/2024 Blood pressure diastolic 71 mm Hg 03/01/2024 Weight-kg 63.05 kg 03/01/2024 Height 62 in 03/01/2024 Blood pressure systolic 108 mm Hg 03/01/2024 Weight 139 lbs 03/01/2024 BMI 25.42 kg/m2 03/01/2024 Encounters Encounter Location Date Provider Diagnosis [facility] [id number] [facility] [address] [address] 03/01/2024 Sandra Thakur Adjustment disorder with mixed anxiety and depressed mood F43.23 ; Moderate recurrent major depression F33.1 ; Generalized anxiety disorder F41.1 ; Insomnia related to another mental disorder F51.05 ; Panic attacks F41.0 and Marijuana user F12.90 [facility] [address] [address] 03/23/2024 Sandra Thakur Adjustment disorder with mixed anxiety and depressed mood F43.23 ; Moderate recurrent major depression F33.1 ; Generalized anxiety disorder F41.1 ; Insomnia related to another mental disorder F51.05 ; Panic attacks F41.0 and Marijuana user F12.90 [facility] [address] [facility] [address] [facility] [address] [place] [address] 03/01/2024 Sandra Thakur [employer] [address] [place] [address] 03/09/2024 Sandra Flanaganakuadiamante [facility] [employer] [facility] [address] [place] [address] 03/23/2024 Sandra Blaze [facility] [employer] [facility] [address] [place] [address] 04/05/2024 Sandra Blaze [facility] [employer] [facility] [address] [facility] [address] [place] [address] 04/06/2024 Sandra Huddlestonaaron Assessments Encounter Date Diagnosis (ICD Code) Assessment Notes Treatment Notes Treatment Clinical Notes Section Notes 03/01/2024 Adjustment disorder with mixed anxiety and depressed mood (ICD-10 - F43.23) refer to IOP refer to therapy meds as below dx: adjustment d/o-last few weeks stressor; MDDR, KM, panic attacks, insomnia. strong family hx bipolar-denies manic hx cannabis daily sleep is good. depression and anxiety are concerns. disuss med options. doesn't think prozac 40mg increase helped when tried. Can change SSRI, restart buspar, try a mood stabilizing agent, lamotrigine (slower to benefit), atypical antipsychotic (consider metabolic), pros/cons. She is wary to change prozac, willing restart buspar-feels did better with this in past and start lamotrigine, review r/b/se, emphasis SJS/rash, must take consistently. to cont off work recommend IOP-interested refer mariann Burleson recommend ongoing therapy-willing refer here for after IOP states needs note to be off work, will not backdate, and going forward will need to be in IOP, but agree to write for one week to allow time to contact IOP and get set up. f/u 3-4 wks, earlier if concerns (if in IOP and seeing IOP prescriber can f/u here after) 03/23/2024 Adjustment disorder with mixed anxiety and depressed mood (ICD-10 - F43.23) attending IOP referred to therapy meds as below dx: adjustment d/o-last 7 weeks r/t stressor; MDDR, KM, panic attacks, insomnia. strong family hx bipolar-denies manic hx cannabis daily having improvement, attending IOP, taking buspar, helpful-does not want to increase dose, still has not started lamotrigine, planning to do so still, cont other meds, education meds and treatment course cont IOP referred here for therapy after IOP f/u in 4 wks, earlier if concerns 03/01/2024 Moderate recurrent major depression (ICD-10 - F33.1) start lamotrigine 25mg qhs x 2 wks, then 50mg qhs cont fluoxetine 20mg daily start therapy 03/23/2024 Moderate recurrent major depression (ICD-10 - F33.1) start lamotrigine 25mg qhs x 2 wks, then 50mg qhs; take consistently, monitor for rash (still has script) cont fluoxetine 20mg daily-sent 90 day last visit IOP/ therapy 03/01/2024 Generalized anxiety disorder (ICD-10 - F41.1) start buspar 5mg BID also SSRI, therapy 03/23/2024 Generalized anxiety disorder (ICD-10 - F41.1) cont buspar 5mg BID also SSRI, therapy 03/23/2024 Insomnia related to another mental disorder (ICD-10 - F51.05) cont amitriptyline 25mg q evening cont trazodone 50mg qhs prn (takes as needed) sent 90 day refills last visit practice good sleep hygiene 03/01/2024 Insomnia related to another mental disorder (ICD-10 - F51.05) cont amitriptyline 25mg q evening cont trazodone 50mg qhs prn (takes as needed) practice good sleep hygiene 03/01/2024 Panic attacks (ICD-10 - F41.0) meds, therapy as above 03/23/2024 Panic attacks (ICD-10 - F41.0) meds, therapy as above 03/01/2024 Marijuana user (ICD-10 - F12.90) can impact mood/anxity symptoms, focus/concentrati on 03/23/2024 Marijuana user (ICD-10 - F12.90) can impact mood/anxity symptoms, focus/concentrati on Plan Of Treatment No Information Insurance Providers Payer Name Payer Address Payer Phone Subscriber Number Group Number Insured Name Patient Relationship to Insured Coverage Start Date Coverage End Date [facility] [address] [place] [address] [id number] White, Tori Self - patient is the insured Medical (General) History Medical History History ICD Code Past Psychiatric History: Anxiety Disord er,Major Depressive Episode abdominal aortic aneurysm: No atrial fibrillation: No chronic fatigue syndrome: No essential tremor: No hypertension: No Parkinson's disease: No restless leg syndrome: Yes stroke: No subdural hematoma: No type 1 diabetes mellitus: No type 2 diabetes mellitus: No vitamin B12 deficiency: Yes vitamin D deficiency: Yes migraines Surgical History Surgery Date(Month/Year) galbladder removal 2009 suspension of ovary and uterus 2002 fallopian tube removed Hospitalization History Reason Date(Month/Year) anti depression 2013
--- OUTSIDE RECORDS SUMMARY | 2024-10-05 19:33 | XMS_ITS ---
Author Organization [facility] [employer] [facility] Address [facility] [address] [facility] [address] [place] [address] Care Team Providers Care School Laboratory Technician Name Role Phone Sandra Thakur Unavailable [phone] REASON FOR VISIT therapy Social History Sex Assigned At : Social History Observation Description Sex Assigned At Female Encounters Encounter Location Date Provider Diagnosis [facility] [address] [facility] [address] [place] [address] 03/23/2024 Sandra Thakur Plan Of Treatment No Information Progress Notes * Radha KIMOB:[birth year] (48 yo F)Acc No.[id number]:03/23/2024 Patient: George CHOWDHURY Tori :1975 A ge:48 Y S ex:Female Phone: Address:[address] [place], [address] * true * Date: Generated for [place] samantha/Sarina/eTransmitting on: 0 10/05/2024 07:32 PM 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
--- OUTSIDE RECORDS SUMMARY | 2024-10-05 19:33 | XMS_ITS ---
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 Dies Name Role Phone Sandra Thakur Unavailable [phone] REASON FOR VISIT Other Social History Sex Assigned At : Social History Observation Description Sex Assigned At Female Encounters Encounter Location Date Provider Diagnosis [facility] [address] [facility] [address] [place] [address] 04/05/2024 Sandra Thakur Plan Of Treatment No Information Progress Notes * Radha KIMOB:[birth year] (48 yo F)Acc No.[id number]:04/05/2024 Patient: George CHOWDHURY Tori :1975 A ge:48 Y S ex:Female Phone: Address:[address], [address] * true * Date: Generated for [place] samantha/Sarina/eTransmitting on: 0 10/05/2024 07:33 PM 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
--- OUTSIDE RECORDS SUMMARY | 2024-10-05 19:33 | XMS_ITS | Data Portability ---
Author Organization [facility] [place] Address [address] [place] [address] Care Team Providers Care Unloader Name Role Phone SUREKHA CORNELIUS Primary Care Provider Assessment No assessment recorded. Plan of Treatment Reminders Order Date Submit Date Provider Last Modified By Organization Details Last Modified Time Details Appointments None recorded. Lab test, urine [email or web address], [address], [address], [place], [address], 4 15:04:33 hormone panel, serum or plasma [email or web address] (Lab), [address] [facility], [place], [address], 3 13:18:56 Referral None recorded. Procedures None recorded. Surgeries hysteroscop y, with endometrial ablation (SURG) 2022 024 [email or web address] Betancourt MD, [address], [place], [address], 5 16:15:34 Imaging None recorded. Medication Orders Bloomery 10 mg-325 mg tablet 2022 023 [facility] #[id number], [address] [facility], [place], [place], [id number], 3 13:05:21 Xanax 0.5 mg tablet 2022 023 [facility] #34995, [address] [facility], [place], [place], [id number], 3 13:05:18 ibuprofen 800 mg tablet 2022 023 [facility] #69130, [address] [facility], [place], [place], [id number], 3 13:05:17 ondansetron 8 mg disintegrat ing tablet 2022 023 [facility] #34695, [address] [facility], [place], [place], [id number], 3 13:05:17 Loestrin Fe 1/20 (28-Day) 1 mg-20 mcg (21)/75 mg (7) tablet 2022 023 [facility] #43493, [address] [facility], [place], [place], [id number], 3 13:00:18 phentermine 30 mg capsule 2022 023 [facility] #98564, [address] [facility], [place], [place], [id number], 3 13:12:27 phentermine 15 mg capsule 2022 023 [email or web address] Not available 3 22:31:02 topiramate 50 mg tablet 2022 023 [email or web address] Not available 3 15:04:14 triamcinolo ne acetonide 0.1 % topical cream 2022 023 [facility] #25488, [address] [facility], [place], [place], [id number], 3 16:46:11 Mounjaro 2.5 mg/0.5 mL subcutaneou s pen injector 2022 023 [facility]67872, [address] [facility], [place], [place], [id number], 16:48:19 Patient TargetsNo targets recorded. Patient InstructionsNo instructions recorded. Reason for Referral None Reported. Results Created Date Observation Date Name Description Value Unit Range Abnormal Flag Note LastModifiedBy Organization Detail LastModifiedTime 02/19/2002/18/2023 SURGI JAGDISH PATHO LOGY surgical pathology SEE RESULT S BELOW CASE REPOR T: Surgi jagdish Patho logy Repor t Case: [id number] Autho wallace nolasco Provi ela: Jeannine Betancourt MD Colle cted: 02/18 1453 Order ing Locat ion: [place] [facility] Recei iván: 02/19 0104 Patho logis t: Van Osorio MD Speci mens: A) - Cervi x, Cervi jagdish sampl e B) - Endom etriu m, Endom etria l curet tings FINAL DIAGN OSIS: A. Cervi x, sampl ing: -Pred omina ntly secre tory endom etriu m with a rare focus of benig n endoc ervic al mucos a. -No evide nce of hyper plasi a or malig donna . B. Endom etriu m, curet tage: -Secr etory endom etriu m. -No evide nce of hyper plasi a or malig donna . -Frag ments of benig n ectoc ervic al and endoc ervic al mucos a. Elect jeison bojorquez by Van Osorio MD on 2022 at 12:38 PM ----- ----- ----- ----- ----- ----- ----- ----- ----- ----- ----- ----- ----- ----- ----- ----- ----- ---- CLINI JAGDISH INFOR MATIO N: n85.9 MICRO SCOPI C DESCR IPTIO N: A micro scopi c exami natio n was perfo rmed. GROSS DESCR IPTIO N: A. Cervi x. The speci men is label ed with the patie nt's name, kuldeepog rodericki cs and cervi jagdish sampl e . Recei iván in forma ramses is a 1.1 x 0.9 x 0.2 [address] ag[address] gate of white tissu e. It is submi tted all in casse tte A1. Gross ed by Navya Ferrari on B. Endom etriu m. The speci men is label ed with the patie nt's name, demog raphi cs and endom etria l curet tings . Recei iván in forma ramses is a 1.6 x 1.0 x 0.[address] gate of laureano tissu e. The entir e speci men is submi tted in casse ttes B1-B2 . Gross ed by Navya Ferrari on Not Available [facility] (Lab) [address], [place], [address], 02/19/2023 13:42:08 02/19/20 23 02/18/2023 pregn zulma test, urine HCG negati ve Not Available [place] [address], [place], [address], 02/18/2023 12:52:05 08/09/19 24 08/09/2023 pregn zulma test, urine HCG negati ve Not Available [place] [address], [place], [address], 08/09/2023 15:04:20 02/26/20 23 02/25/2023 MAMMO , diagn ostic , digit al, bilat eral No observ ation record ed. [facility] [address], [place], [address], 03/18/2023 12:46:40 Result Notes None recorded. Procedures Surgical History Date Name Laterality Status Provider Name and Address Organization Details Recorded Time 024 Endometrial Ablation with Hysteroscopy completed Chidi Betancourt MD [address], [place], [address], [facility] 08/09/2023 17:52:17 024 Hysteroscopy completed [facility] 08/09/2023 14:35:27 024 Endometrial Ablation completed [facility] 08/09/2023 14:35:41 023 Hysteroscopy completed Chidi Betancourt MD [address], [place], [address], [facility] 02/21/2023 00:07:31 015 Removal of fallopian tube completed [facility] 12/10/2022 15:46:25 010 Cholecystectomy completed [facility] 12/10/2022 15:43:57 Imaging Results Imaging Date Name Status LastModified by Organiz ation Details LastModified Time 02/25/2023 MAMMO, diagnostic, digital, bilateral completed [facility] [address], [place], [address], 03/18/2023 12:46:40 Procedure Notes None recorded. Medical Equipment None Reported. Allergies No known drug allergies Medications Name Sig Start Date Stop Date Status Note LastModified by Organization Details LastModified Time fluoxetine 40 mg capsule TAKE 1 CAPSULE BY MOUTH EVERY MORNING active Not Available Not Available No t Available buspirone 5 mg tablet TAKE 1 TABLET BY MOUTH THREE TIMES DAILY NEEDED 12/10 completed Not Available Not Available Not Available azithromyci n 250 mg tablet TAKE 2 TABLETS BY MOUTH FOR 1 DAY THEN TAKE 1 TABLET BY MOUTH DAILY FOR 4 DAYS active Not Available Not Available No t Available ibuprofen 800 mg tablet Take 1 tablet 2 hours before the procedure . active Not Available Not Available No t Available ondansetron HCl 8 mg tablet Take 1 tablet 2 hours before the procedure . active Not Available Not Available No t Available famotidine 40 mg tablet TAKE 1 TABLET BY MOUTH DAILY active Not Available Not Available No t Available dextroamphe tamine-amph etamine 10 mg tablet TAKE 1 TABLET BY MOUTH TWICE DAILY 12/10 completed Not Available Not Available Not Available phentermine 15 mg capsule TAKE 1 CAPSULE BY MOUTH EVERY DAY active Not Available Not Available No t Available hydrocodone 10 mg-acetamin ophen 325 mg tablet Take 1 tablet 2 hours before the procedure . active Not Available Not Available No t Available triamcinolo ne acetonide 0.1 % topical cream APPLY THIN LAYER TOPICALLY TO THE AFFECTED AREA TWICE DAILY active Not Available Not Available No t Available phentermine 30 mg capsule TAKE 1 CAPSULE BY MOUTH EVERY DAY active Not Available Not Available No t Available ondansetron 8 mg disintegrat ing tablet DISSOLVE 1 TABLET ON THE TONGUE 2 HOURS BEFORE PROCEDURE active Not Available Not Available No t Available alprazolam 0.5 mg tablet Take 1 tablet 2 hours before the procedure . active Not Available Not Available No t Available amitriptyli ne 25 mg tablet TAKE 1 TABLET BY MOUTH EVERY EVENING active Not Available Not Available No t Available fluoxetine 20 mg tablet TAKE 1 TABLET BY MOUTH EVERY MORNING 12/10 completed Not Available Not Available Not Available dextroamphe tamine-amph etamine 20 mg tablet TAKE 1 TABLET BY MOUTH TWICE DAILY 12/10 completed Not Available Not Available Not Available omeprazole 20 mg capsule,del ayed release active Not Available Not Available Not Available ergocalcife rol (vitamin D2) 1,250 mcg (50,000 unit) capsule TAKE 1 CAPSULE BY MOUTH 1 TIME PER WEEK FOR 12 WEEKS 12/10 completed Not Available Not Available Not Available oxycodone-a cetaminophe n 7.5 mg-325 mg tablet Take 1 tablet by oral route. active Not Available Not Available No t Available methylpredn isolone 4 mg tablets in a dose pack FOLLOW PACKAGE DIRECTION S active Not Available Not Available No t Available albuterol sulfate HFA 90 mcg/actuati on aerosol inhaler INHALE 2 PUFFS BY MOUTH EVERY 4 TO 6 HOURS NEEDED active Not Available Not Available No t Available ondansetron 4 mg disintegrat ing tablet DISSOLVE 1 TABLET ON THE TONGUE EVERY 8 HOURS NEEDED FOR NAUSEA OR VOMITING active Not Available Not Available No t Available fluoxetine 20 mg capsule TAKE 1 CAPSULE BY MOUTH EVERY DAY active Not Available Not Available No t Available colestipol 1 gram tablet TAKE 1 TABLET BY MOUTH TWICE DAILY 12/10 completed Not Available Not Available Not Available amoxicillin 875 mg-potkizzyiu m clavulanate 125 mg tablet TAKE 1 TABLET BY MOUTH EVERY 12 HOURS FOR 7 DAYS 12/10 completed Not Available Not Available Not Available topiramate 50 mg tablet TAKE 1 TABLET BY MOUTH EVERY DAY 2022 active Not Available Not Available Not Avai lable Vyvanse 50 mg capsule active Not Available Not Available N ot Available Blisovi Fe 08/21 (28) 1 mg-20 mcg (21)/75 mg (7) tablet Take 1 tablet every day by oral route. active Not Available Not Available No t Available Mounjaro 2.5 mg/0.5 mL subcutaneou s pen injector Inject by subcutane ous route for 28 days. active Not Available Not Available No t Available Vitals Date Recorded Body height Body mass index (BMI) Body weight Systolic blood pressure Diastolic blood pressure Provider Name and Address Organization Details Last Updated DateTime 02/25/2023 157.48 cm 27.4 kg/m2 75044.86 g 122 mm[Hg] 76 mm[Hg] [facility] 3 15:58:43 Date Recorded Body height Body mass index (BMI) Body weight Systolic blood pressure Diastolic blood pressure Provider Name and Address Organization Details Last Updated DateTime 03/25/2023 157.48 cm 27.4 kg/m2 86193.86 g 145 mm[Hg] 77 mm[Hg] [facility] 3 12:44:59 Date Recorded Body height Body mass index (BMI) Body weight Systolic blood pressure Diastolic blood pressure Provider Name and Address Organization Details Last Updated DateTime 04/22/2023 157.48 cm 27.6 kg/m2 18055.45 g 138 mm[Hg] 79 mm[Hg] [facility] 3 12:58:16 Date Recorded Body height Body mass index (BMI) Body weight Systolic blood pressure Diastolic blood pressure Provider Name and Address Organization Details Last Updated DateTime 07/01/2023 157.48 cm 28.5 kg/m2 11666.41 g 144 mm[Hg] 79 mm[Hg] [facility] 3 12:23:24 Date Recorded Body height Body mass index (BMI) Body weight Systolic blood pressure Diastolic blood pressure Provider Name and Address Organization Details Last Updated DateTime 08/09/2023 157.48 cm 27.8 kg/m2 27430.04 g 123 mm[Hg] 79 mm[Hg] [facility] 4 14:25:51 Social History None recorded. Functional Status None recorded. Mental Status None recorded. Family History Relationship Description Onset Age of this Age Resolved Age Notes LastModified by Organization Details LastModified Time Mother Disorder of thyroid gland [email or web address] Not available 2022 15:43:07 Maternal Grandfather Malignant tumor of colon [email or web address] Not available 2022 12:20:17 Maternal Grandfather Heart disease [email or web address] Not available 2022 12:20:42 Maternal Grandfather Diabetes mellitus [email or web address] Not available 2022 12:21:19 Maternal Grandfather Hypercholest erolemia [email or web address] Not available 2022 12:21:54 Maternal Grandfather Hypertensive disorder [email or web address] Not available 2022 12:22:18 Maternal Grandfather Malignant tumor of lung [email or web address] Not available 2022 12:22:39 Maternal Grandmother Heart disease [email or web address] Not available 2022 12:20:42 Maternal Grandmother Diabetes mellitus [email or web address] Not available 2022 12:21:10 Maternal Grandmother Hypercholest erolemia [email or web address] Not available 2022 12:21:54 Maternal Grandmother Hypertensive disorder [email or web address] Not available 2022 12:22:18 Paternal Grandfather Heart disease [email or web address] Not available 2022 12:20:42 Paternal Grandfather Diabetes mellitus [email or web address] Not available 2022 12:21:22 Paternal Grandfather Hypercholest erolemia [email or web address] Not available 2022 12:21:54 Paternal Grandfather Hypertensive disorder [email or web address] Not available 2022 12:22:18 Paternal Grandmother Diabetes mellitus [email or web address] Not available 2022 12:21:10 Paternal Grandmother Hypercholest erolemia [email or web address] Not available 2022 12:21:54 Paternal Grandmother Hypertensive disorder [email or web address] Not available 2022 12:22:18 Father Malignant tumor of lung [email or web address] Not available 2022 12:22:39 Medical History Condition Response Other Y Anemia Y Asthma Y Gynecological History Statement/Question Response Abnormal Pap Y Date of LMP 12/07/2022 STIs/STDs Y Age of first menstrual cycle 14 Date of Last Pap Smear Current Control Method Sterilizati on LMP Approximate Obstetrics History GPAL:G 3 P 2 0 1 2 Type Value Full Term 2 Induced 1 Living 2 Total 3 Past Encounters Encounter ID Performer Location Encounter Start Date Encounter Closed Date Diagnosis/Indication Diagnosis SNOMED-CT Code Diagnosis ICD10 Code Diagnosis Note [id number] Chidi Betancourt MD [place] [address],[place] [address] 12/10/2022 15:17:26 12/10/2022 16:55:41 Abnormal uterine bleeding 6308451358 9100 N93.9 Menorrhagia 197538601 N9 2.0 [id number] [facility] [address],[place] [address] 12/17/2022 11:57:35 12/17/2022 12:39:09 Menorrhagia 192308535 N92.0 N93.9 [id number] Chidi Betancourt MD [place] [address],[place] [address] 01/07/2023 10:55:07 01/07/2023 12:35:07 Mass of right breast 2367693661 7545954 N63.10 Abnormal u terine bleeding 7553242490 9100 N93.9 Lesion of endometrium 92 04241131 9101 N85.9 47-year-ol d female with endometria l lesion vascular endometriu m. Irregular bleeding, overweight and breast lump. We talked about these and visual problems in detail. The breasts were examined. She has nodularity the bilateral superior per quadrants the breast. No distinct lesion /Mass of the breast. Patient needs hysterosco py for the endometria l lesion and vascularit y. Discussed that in detail. Talked about weight management in detail. We talked about lump in her right breast. We will obtain a ultrasound of the breast. Spent 40 minutes face-to-fa ce. More than 50% was counseling . Overweight 960394595 E66 .3 Preoperative state 86983 002 Z78.9 [id number] Chidi Betancourt MD [place] [address],[place] [address] 02/18/2023 11:40:04 02/18/2023 13:50:53 Screening procedure 82565057 Z13.9 Lesion of endometrium 92 86343022 9101 N85.9 hysterosco py was performed. She tolerated well. Endocervic al and endometria l curettage performed. [id number] Chidi Betancourt MD [place] [address],[facility] [place] [address] 02/25/2023 15:39:27 02/25/2023 17:11:08 Disorder of vulva 6356414 N90.9 we 7-year-old female who underwent endometria l ablation. She was using a pad for while and now has a vulvar irritation . Was examined. There was small Papular bumps over area of erythema on the vulva. It is a dermatitis . agreed to treat with topical steroid cream. Talked about weight management we talked about preiabetes . We spent over 40 minutes face-to-fa ce. More than 50% was counseling . Talked about calorie counting. Talked about metabolism prescribed medication , G LP 1 agonist, was given instructio ns and warning about side effects. Prediabetes 580781006 R7 3.03 [id number] Chidi Betancourt MD [place] [address] [address] 03/25/2023 12:30:52 03/26/2023 12:47:18 Obesity 223464908 E66.9 47-year-ol d female presents for follow-up on weight management . We discussed treatment options. She is unable to get the DLP 1 agonist. They are in the process of being approved are denied. Most likely denied. We agreed to start phentermin e topiramate . Her weight has been stable for some time. We spent over 20 minutes face-to-fa ce. More than 50% was counseling . [id number] Chidi Betancourt MD [place] [address] [address] 04/22/2023 12:46:49 04/22/2023 13:38:29 Obesity 464327954 E66.9 47-year-ol d female presents for follow-up on weight management . We discussed treatment options. She is unable to get the DLP 1 agonist. They are in the process of being approved are denied. Most likely denied. We agreed to start phentermin e topiramate . Her weight has been stable for some time. We spent over 20 minutes face-to-fa ce. More than 50% was counseling . [id number] Chidi Betancourt MD [place] [address] [address] 07/01/2023 12:01:51 07/01/2023 17:28:26 Abnormal uterine bleeding 1039430382 9100 N93.9 Menorrhagia 111058190 N9 2.0 N93.9 This patient is a 47-year-ol d female presents for heavy vaginal bleeding. She has longstandi ng very heavy bleeding. Her menses are regular. However, they require double protection . Patient has accidents, getting blood on her bedding and clothing. Is affected work. She changes a pad or tampon every hour. She leaks blood around the pad and tampon. This bleeding has a profound impact on her quality of life and her activities of daily living.We agreed to perform endometria l ablation. We discussed the concern about endometria l ablation the context of abnormal uterine bleeding. We talked about cancer risk and surveillan ce. Patient complains of abnormal uterine bleeding. She is irregularl y irregular bleeding We agreed to do hormonal evaluation for abnormal uterine bleeding. she recently had elevated testostero ne. She is going to recheck her labs. Talked about treatment of PCOS. We discussed abnormal uterine bleeding and amenorrhea . We discussed polycystic ovarian syndrome. We discussed the diagnosis. We discussed the underlying disease process. We discussed laboratory evaluation . We discussed her ultrasound and laboratory results. We discussed the prevention of endometria l cancer. We discussed protecting the endometriu m and how that is carried out. We discussed treatment in the context of a desired . We discussed medical treatment. We discussed the risk associated with PCOS and long-term health outcomes. We spent more than 40 minutes face-to-fa ce. More than 50% was counseling . Talked about 3 complex topics and we agreed to perform surgery. Preoperative state 81802 002 Z78.9 [id number] Chidi Betancourt MD [place] [address] [address] 08/09/2023 13:55:09 08/10/2023 09:15:44 Screening procedure 14047823 Z13.9 Menorrhagia 141696013 N9 2.0 N93.9 endometria l ablation was performed. She tolerated the procedure well. To follow up in 1 week Health Concerns Section Related Observation LastModified by Organization Detai ls LastModified Time None Recorded Concern Status LastModified by Organization Details LastModified Time None Recorded Advance Directives Directive None Recorded Payers Encounter Date Sequence Insurance Name Policy Number Policy [employer] Covered Member ID [employer] Member ID Guarantor Name 02/25/2023 1 [employer] () Dru Jamison [id number] Tori Jamison 03/25/2023 1 [employer] () Dru Jamison [id number] Tori Jamison 04/22/2023 1 [employer] () Dru Jamison [id number] Tori Jamison 07/01/2023 1 [employer] () Dru Jamison [id number] Tori Jamison 08/09/2023 1 [employer] () Dru Jamison [id number] Tori Jamison Notes Date Note Type Note Provider Name and Address Organization Details Recorded Time 02/25/2023 text/html we 7-year-old female who underwent endometrial ablation. She was using a pad for while and now has a vulvar irritation. Was examined. There was small Papular bumps over area of erythema on the vulva. It is a dermatitis. agreed to treat with topical steroid cream. Talked about weight management we talked about preiabetes. We spent over 40 minutes [id number]. More than 50% was counseling. Talked about calorie counting. Talked about metabolism. Chidi Betancourt MD [address], [place], [address], [facility] 02/25/2023 17:07:44 03/25/2023 text/html 47-year-old [place] presents for follow-up on weight management. We discussed treatment options. She is unable to get the DLP 1 agonist. They are in the process of being approved are denied. Most likely denied. We agreed to start phentermine topiramate. Her weight has been stable for some time. We spent over 20 minutes [id number]. More than 50% was counseling. Chidi Betancourt MD [address], [place], [address], [facility] 03/25/2023 22:28:31 04/22/2023 text/html 47-year-old [place] presents for follow-up on weight management. We discussed treatment options. She is unable to get the DLP 1 agonist. They are in the process of being approved are denied. Most likely denied. We agreed to start phentermine topiramate. Her weight has been stable for some time. We spent over 20 minutes [id number]. More than 50% was counseling. Chidi Betancourt MD [address], [place], [address], [facility] 04/22/2023 13:13:29 07/01/2023 text/html This patient is a 47-year-old female presents for heavy vaginal bleeding. She has longstanding very heavy bleeding. Her menses are regular. However, they require double protection. Patient has accidents, getting blood on her bedding and clothing. Is affected work. She changes a pad or tampon every hour. She leaks blood around the pad and tampon. This bleeding has a profound impact on her quality of life and her activities of daily living.We agreed to perform endometrial ablation. We discussed the concern about endometrial ablation the context of abnormal uterine bleeding. We talked about cancer risk and surveillance. Patient complains of abnormal uterine bleeding. She is irregularly irregular bleeding We agreed to do hormonal evaluation for abnormal uterine bleeding. she recently had elevated testosterone. She is going to recheck her labs. Talked about treatment of PCOS. We discussed abnormal uterine bleeding and amenorrhea. We discussed polycystic ovarian syndrome. We discussed the diagnosis. We discussed the underlying disease process. We discussed laboratory evaluation. We discussed her ultrasound and laboratory results. We discussed the prevention of endometrial cancer. We discussed protecting the endometrium and how that is carried out. We discussed treatment in the context of a desired . We discussed medical treatment. We discussed the risk associated with PCOS and long-term health outcomes. Chidi Betancourt MD [address], [place], [address], [facility] 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 She understands the procedure. Was explained to her in detail. She understands the risks, benefits, and alternatives. Chidi Betancourt MD [address], [place], [address], [facility] 08/09/2023 17:53:22 OBGyn Episode Ob Episode Information Episode Created Date Number of Fetuses Patient Bloodtype Patient rh Status Prepregnancy Weight lbs Domestic Partner Domestic Partner Phone 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 Status 12/11/19 23 1 CLOSED Fetus Data First Name Last Name Admitted to NICU Weight (g) Sex Living Outcome Pediatric Complications Fetus ID Race Codes Race Delivery Type 2721.55 2 F Full Term Vaginal Delivery Colten Calculation Initial Colten Date Initial Exam Date Initial Exam Provider Initial Ultrasound Date Last Menstrual Period Date Ultra Sound Weeks Gestation 0 Eighteen To Twenty Week Colten Update Ultra Sound Date Fundal Height At Umbil Quickening Date Ultra Sound Latest Weeks Gestation Final Colten Confirmed By Final Colten Confirmed Date Final Colten Date Ultra Sound Latest Days Gestation 0 0 Menstrual History Last Menstrual Date Menses Monthly On Bcp Conception Prior Menses Frequency Hcg Plus Date Menarche Onset Age Delivery Information Delivery Date Delivery Type Labor Anesthesia Weeks Gestation Incision Type Labor Labor Length Hrs Delivered By Post Complications Tubal Sterilization Discharge Date Comments 9 38 Cony Discharge Information Feeding Method Contraceptive Method Maternal HG B and HCT Levels Ob Episode Information Episode Created Date Number of Fetuses Patient Bloodtype Patient rh Status Prepregnancy Weight lbs Domestic Partner Domestic Partner Phone 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 Status 12/11/19 23 1 CLOSED Fetus Data First Name Last Name Admitted to NICU Weight (g) Sex Living Outcome Pediatric Complications Fetus ID Race Codes Race Delivery Type 2721.55 2 F Full Term Vaginal Delivery Colten Calculation Initial Colten Date Initial Exam Date Initial Exam Provider Initial Ultrasound Date Last Menstrual Period Date Ultra Sound Weeks Gestation 0 Eighteen To Twenty Week Colten Update Ultra Sound Date Fundal Height At Umbil Quickening Date Ultra Sound Latest Weeks Gestation Final Colten Confirmed By Final Colten Confirmed Date Final Colten Date Ultra Sound Latest Days Gestation 0 0 Menstrual History Last Menstrual Date Menses Monthly On Bcp Conception Prior Menses Frequency Hcg Plus Date Menarche Onset Age Delivery Information Delivery Date Delivery Type Labor Anesthesia Weeks Gestation Incision Type Labor Labor Length Hrs Delivered By Post Complications Tubal Sterilization Discharge Date Comments 4 37 Meena Discharge Information Feeding Method Contraceptive Method Maternal HG B and HCT Levels Ob Episode Information Episode Created Date Number of Fetuses Patient Bloodtype Patient rh Status Prepregnancy Weight lbs Domestic Partner Domestic Partner Phone 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 Status 12/11/19 23 1 CLOSED Fetus Data First Name Last Name Admitted to NICU Weight (g) Sex Living Outcome Pediatric Complications Fetus ID Race Codes Race Delivery Type , Induced Cotlen Calculation Initial Colten Date Initial Exam Date Initial Exam Provider Initial Ultrasound Date Last Menstrual Period Date Ultra Sound Weeks Gestation 0 Eighteen To Twenty Week Colten Update Ultra Sound Date Fundal Height At Umbil Quickening Date Ultra Sound Latest Weeks Gestation Final Colten Confirmed By Final Colten Confirmed Date Final Colten Date Ultra Sound Latest Days Gestation 0 0 Menstrual History Last Menstrual Date Menses Monthly On Bcp Conception Prior Menses Frequency Hcg Plus Date Menarche Onset Age Delivery Information Delivery Date Delivery Type Labor Anesthesia Weeks Gestation Incision Type Labor Labor Length Hrs Delivered By Post Complications Tubal Sterilization Discharge Date Comments 3 Discharge Information Feeding Method Contraceptive Method Maternal HG B and HCT Levels
--- OUTSIDE RECORDS SUMMARY | 2024-10-05 19:33 | XMS_ITS ---
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 Name Role Phone Sandra Thakur Unavailable [phone] REASON FOR VISIT letter for work Social History Sex Assigned At : Social History Observation Description Sex Assigned At Female Encounters Encounter Location Date Provider Diagnosis [facility] [employer] [place] [address] [facility] [address] [facility] [address] [place] [address] 04/06/2024 Sandra Thakur Plan Of Treatment No Information Progress Notes * Radha KIMOB:[birth year] (48 yo F)Acc No.[id number]:04/06/2024 Patient: George CHOWDHURY Tori :1975 A ge:48 Y S ex:Female Phone: Address:[address] [place], [address] * true * Date: Generated for Printi ng/Faandreg/eTransmitting on: 0 10/05/2024 07:33 PM 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
--- OUTSIDE RECORDS SUMMARY | 2024-10-05 19:37 | XMS_ITS | Continuity of Care Document ---
Author Name [facility] Organization [facility] Care Team Providers Care Credit Union Manager Name Role Phone [facility] Unavailable Unavailable Problems Combined list of problems from Department of Defense and Veterans Affairs facilities. It does not include entries that were removed or entered in error. Problem Status Onset Date Problem Type Date of Resolution Comments Source Irritable bowel syndrome with diarrhea Active 6 Condition DoD Adjustment disorder with mixed anxiety and depressed mood Active Condition DoD tenosynovitis de Quervain's Active Condition DoD rhinitis Inactive Condition DoD joint pain in the right hip Inactive Condition DoD visit for: exam 2nd trimester (at ___ weeks) Inactive Condition DoD diarrhea Inactive Condition DoD secondary insomnia Inactive Condition Do D Inquiry And Counseling: Contraceptive Practices Active Condition DoD elderly multigravida (35 or older at delivery) Inactive Condition DoD upper respiratory infection Inactive Condition DoD backache Active Condition DoD common cold Inactive Condition DoD constipation Inactive Condition [facility] visit for: exam high-risk elderly multigravida Inactive Condition DoD nausea Inactive Condition DoD Urine Test Inactive Condition DoD rhinosinusitis Inactive Condition [facility] Outpatient Physician Consultation Inactive Condition DoD conditions influencing health status Active Condition DoD cervicalgia Active Condition [facility] visit for: screening exam for malignant neoplasm cervix Inactive Condition DoD cystitis acute Inactive Condition DoD female pelvic pain Active Condition DoD endometriosis Active Condition DoD nonmenstrual bleeding Active Condition DoD Test Inactive Condition DoD acute bronchitis Inactive Condition [facility] visit for: issue repeat prescription for medication Inactive Condition DoD adjustment disorder with anxiety Inactive Condition DoD sinusitis Active Condition DoD headache Inactive Condition DoD cystitis Inactive Condition DoD reactive confusion Inactive Condition Do D esophageal reflux Active Condition DoD nicotine dependence Active Condition Do D synovitis and tenosynovitis hand/wrist Active Condition DoD Test Negative Inactive Condition DoD sore throat Inactive Condition DoD Gynecologic Services Contraceptive Management Inactive Condition DoD abdominal pain Active Condition DoD Intervention And Counseling On Cessation Of Tobacco Use Inactive Condition DoD Gynecologic Services Intrauterine Device (IUD) Removal Inactive Condition DoD refractive error - hypermetropia Active Condition DoD dry eye syndrome Active Condition DoD dyshidrosis Active Condition DoD visit for: contraceptive surveillance Inactive Condition DoD lumbago Active Condition DoD Gynecologic Services Intrauterine Device (IUD) Insertion Inactive Condition DoD routine history and physical - labor and delivery Inactive Condition DoD visit for: exam supervision Inactive Condition DoD Lower Leg Localized Swelling Inactive Condition DoD visit for: exam Inactive Condition [facility] routine checkup - third trimester (at ___ Weeks) Inactive Condition [facility] visit for: exam high-risk Inactive Condition DoD lower back pain Inactive Condition DoD anxiety disorder NOS Inactive Condition DoD Need For Vaccination Against Influenza Inactive Condition DoD current smoker Active Condition DoD Oral GTT 2-Hour Value Between 140 - 200 Inactive Condition [facility] routine checkup - second trimester Inactive Condition DoD normal Inactive Condition DoD psychiatric diagnosis or condition deferred on axis I Inactive Condition DoD depression Inactive Condition DoD Inactive Condition DoD hyperemesis gravidarum Inactive Condition DoD Patient Counseling: Inactive Condition D oD Supervision Of Normal Inactive Condition [facility] visit for: exam 1st trimester (at ___ weeks) Inactive Condition DoD nausea with vomiting Inactive Condition [facility] irritable bowel syndrome Active Condition DoD visit for: administrative purpose Inactive Condition [facility] smoking cigarettes Active Condition [facility] dysmenorrhea Active Condition DoD dysfunctional uterine bleeding Active Condition DoD feared medical condition not demonstrated Inactive Condition [facility] visit for: screening exam malignant neoplasm breast Inactive Condition DoD routine gynecological exam with cervical pap smear Inactive Condition DoD vaginal discharge Inactive Condition DoD dyspareunia Active Condition DoD pain during urination (dysuria) Active Condition DoD dermatophytosis tinea pedis Inactive Condition DoD dermatophytosis tinea manuum Active Condition [facility] visit for: issue repeat prescription Inactive Condition [facility] Patient Education - Medication Inactive Condition DoD Need For Vaccination Hepatitis B Inactive Condition DoD anxiety Inactive Condition Pt with anxiety disorder that has failed every SSRI and Wellbutrin and per patient. Pt does not tolerate klonopin. Will give trial of low dose Xanax. Follow up as needed. [facility] routine pre-employment screening examination Inactive Condition Pt here for pre-work physical. No issues that would cause difficulty with pt's training. DoD Medications Combined list of outpatient medications from Department of Defense and Veterans Affairs facilities.Medications provided include 1) outpatient medications from the last 15 months, and 2) patient-reported medications. Medication Details Route Status Patient Instructions Prescription Expires Prescription Number Last Dispense Date Ordering Provider Order Date Order Qty Source ALBUTEROL SULFATE HFA (albuterol sulfate), 90 MCG, HFA AER AD, INHALATION, LUPIN PHARMACEU, 8.5 g CANISTER Cancele d [id number] : 2023 0 Pharmac y Data Transac tion Service Facilit y ALPRAZOLAM (ALPRAZOLAM ), 0.5MG, TABLET, ORAL, SANDOZ, 1000 ea. BOTTLE Cancele d [id number] : 2023 0 Pharmac y Data Transac tion Service Facilit y AMITRIPTYLI NE HCL (amitriptyl ine HCl), 25 MG, TABLET, ORAL, UNICHEM PHARMAC, 1000 ea. BOTTLE Active [id number] 2023 90 Pharmac y Data Transac tion Service Facilit y AMITRIPTYLI NE HCL (amitriptyl ine HCl), 25 MG, TABLET, ORAL, UNICHEM PHARMAC, 1000 ea. BOTTLE Active [id number] 2023 90 Pharmac y Data Transac tion Service Facilit y AMITRIPTYLI NE HCL (amitriptyl ine HCl), 25 MG, TABLET, ORAL, UNICHEM PHARMAC, 1000 ea. BOTTLE Active [id number] 2023 90 Pharmac y Data Transac tion Service Facilit y AMITRIPTYLI NE HCL (amitriptyl ine HCl), 25 MG, TABLET, ORAL, UNICHEM PHARMAC, 1000 ea. BOTTLE Active [id number] 2022 90 Pharmac y Data Transac tion Service Facilit y CYCLOBENZAP RINE HCL (cyclobenza mitchell HCl), 10 MG, TABLET, ORAL, UNICHEM PHARMAC, 1000 ea. BOTTLE Cancele d [id number] : 2023 0 Pharmac y Data Transac tion Service Facilit y CYCLOBENZAP RINE HCL (cyclobenza mitchell HCl), 10 MG, TABLET, ORAL, UNICHEM PHARMAC, 1000 ea. BOTTLE Active [id number] 2023 14 Pharmac y Data Transac tion Service Facilit y DICYCLOMINE HCL (DICYCLOMIN E HCL), 10MG, CAPSULE, ORAL, [employer], 100 ea. BOTTLE Cancele d [id number] : 2023 0 Pharmac y Data Transac tion Service Facilit y DICYCLOMINE HCL (DICYCLOMIN E HCL), 10MG, CAPSULE, ORAL, [employer], 100 ea. BOTTLE Active [id number] 2023 240 Pharmac y Data Transac tion Service Facilit y FLUOXETINE HCL (FLUOXETINE HCL), 20MG, CAPSULE, ORAL, [employer], 1000 ea. BOTTLE Active [id number] 2023 90 Pharmac y Data Transac tion Service Facilit y IBUPROFEN (ibuprofen) , 800 MG, TABLET, ORAL, AUROBINDO PHARM, 500 ea. BOTTLE Cancele d [id number] : 2023 0 Pharmac y Data Transac tion Service Facilit y IBUPROFEN (ibuprofen) , 800 MG, TABLET, ORAL, AUROBINDO PHARM, 500 ea. BOTTLE Active [id number] 2023 20 Pharmac y Data Transac tion Service Facilit y LISDEXAMFET AMINE DIMESYLATE (lisdexamfe tamine dimesylate) , 50 MG, CAPSULE, ORAL, MYLAN, 90 ea. BOTTLE Cancele d [id number] : 2023 0 Pharmac y Data Transac tion Service Facilit y METHYLPREDN ISOLONE (methylpred nisolone), 4 MG, TAB DS PK, ORAL, [employer], 21 ea. DOSE-PACK Active [id number] 2023 21 Pharmac y Data Transac tion Service Facilit y ONDANSETRON ODT (ONDANSETRO N), 4 MG, TAB RAPDIS, ORAL, CITRON PHARMA L, 30 ea. BLIST PACK Cancele d [id number] : 2023 0 Pharmac y Data Transac tion Service Facilit y ONDANSETRON ODT (ONDANSETRO N), 4 MG, TAB RAPDIS, ORAL, CITRON PHARMA L, 30 ea. BLIST PACK Active [id number] 2023 10 Pharmac y Data Transac tion Service Facilit y ONDANSETRON ODT (ondansetro n), 8 MG, TAB RAPDIS, ORAL, RISING PHARM, 30 ea. BOTTLE Active [id number] 2023 1 Pharmac y Data Transac tion Service Facilit y ONDANSETRON ODT (ondansetro n), 8 MG, TAB RAPDIS, ORAL, RISING PHARM, 30 ea. BOTTLE Active [id number] 2023 1 Pharmac y Data Transac tion Service Facilit y OXYCODONE-A CETAMINOPHE N (OXYCODONE HCL/ACETAMI NOPHEN), 7.5-325MG, TABLET, ORAL, MALLINKRT PHARM, 100 ea. BOTTLE Active [id number] 2023 1 Pharmac y Data Transac tion Service Facilit y PANTOPRAZOL E SODIUM (PANTOPRAZO LE SODIUM), 20 MG, TABLET DR, ORAL, MYLAN, 90 ea. BOTTLE Cancele d [id number] : 2023 0 Pharmac y Data Transac tion Service Facilit y PANTOPRAZOL E SODIUM (PANTOPRAZO LE SODIUM), 20 MG, TABLET DR, ORAL, MYLAN, 90 ea. BOTTLE Active [id number] 2023 30 Pharmac y Data Transac tion Service Facilit y phentermine 15 mg capsule See Instruct ions, # 30 EA, 0 total refill(s ), Hard Stop Complet ed 09/21/2023 3 2023 30.0 Ambulat ory Pharmac y SUMATRIPTAN SUCCINATE (sumatripta n succinate), 100 MG, TABLET, ORAL, 'S LAB, 27 ea. BLIST PACK Active [id number] 2023 9 Pharmac y Data Transac tion Service Facilit y SUMATRIPTAN SUCCINATE (sumatripta n succinate), 100 MG, TABLET, ORAL, 'S LAB, 27 ea. BLIST PACK Cancele d [id number] : 2023 0 Pharmac y Data Transac tion Service Facilit y SUMATRIPTAN SUCCINATE (sumatripta n succinate), 100 MG, TABLET, ORAL, 'S LAB, 27 ea. BLIST PACK Active [id number] 2023 9 Pharmac y Data Transac tion Service Facilit y SUMATRIPTAN SUCCINATE (sumatripta n succinate), 100 MG, TABLET, ORAL, 'S LAB, 27 ea. BLIST PACK Active [id number] 2023 9 Pharmac y Data Transac tion Service Facilit y topiramate [Exelan] 50 mg tablet See Instruct ions, # 90 EA, 0 total refill(s ), Hard Stop Complet ed 03/24/2024 3 2023 90.0 Ambulat ory Pharmac y TRAZODONE HCL (trazodone HCl), 50 MG, TABLET, ORAL, AUROBINDO PHARM, 100 ea. BOTTLE Cancele d [id number] : 2023 0 Pharmac y Data Transac tion Service Facilit y TRAZODONE HCL (trazodone HCl), 50 MG, TABLET, ORAL, AUROBINDO PHARM, 100 ea. BOTTLE Cancele d [id number] : 2023 0 Pharmac y Data Transac tion Service Facilit y TRAZODONE HCL (trazodone HCl), 50 MG, TABLET, ORAL, AUROBINDO PHARM, 100 ea. BOTTLE Active [id number] 2023 30 Pharmac y Data Transac tion Service Facilit y TRAZODONE HCL (trazodone HCl), 50 MG, TABLET, ORAL, AUROBINDO PHARM, 100 ea. BOTTLE Active [id number] 2023 30 Pharmac y Data Transac tion Service Facilit y TRAZODONE HCL (trazodone HCl), 50 MG, TABLET, ORAL, AUROBINDO PHARM, 100 ea. BOTTLE Active [id number] 2023 30 Pharmac y Data Transac tion Service Facilit y Allergies, Adverse Reactions, Alerts Combined list of allergies from Department of Defense and Veterans Affairs facilities. It does not include entries that were removed or entered in error. Substance Category Reaction Severity Reaction type Status Date Reported Comments Source escitalopram Drug allergy Throat swelling Mild Active Ambulato ry Pharmacy FLUoxetine Propensity to adverse reactions to drug Diarrhea Active 4 Unknown Organiza tion metocloprami de Propensity to adverse reactions to drug Depression Active 4 Unknown Organiza tion OTHER {Cla } Drug allergy (disorder) Rash active [address] [place] [address] [place] OTHER {Cla } Propensity to adverse reactions to drug Rash Active 3 LATEX Unknown Organiza tion PHENERGAN (PROMETHAZIN E HCL) Drug allergy (disorder) Unknown active [address] [place] [address]) promethazine Propensity to adverse reactions to drug Unknown Active 4 Unknown Organiza tion PROZAC (FLUOXETINE HCL) Drug allergy (disorder) Diarrhea active [address] [place] [address] ([facility] REGLAN (METOCLOPRAM JENNY HCL) Drug allergy (disorder) Depression active [address] [place] [address]) sertraline Propensity to adverse reactions to drug Depression Active 4 Unknown Organiza tion ZOLOFT (SERTRALINE HCL) Drug allergy (disorder) Depression active [address] [place] [address]) Immunizations Combined list of available immunizations from the Department of Defense and Veterans Affairs facilities. 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 (MOD) Not Given COVID-19, mRNA, LNP-S, PF, 100 mcg or 50 mcg dose DoD influenza, injectable, quadrivalent- pf 2017 zzLef t Arm [id number] Se[employer] complet ed influenza , injectabl e, quadrival ent-pf 05/11/18 Given Ambulat ory Pharmac y Influenza, injectable, quadrivalent, preservative free 1 2017 Unknown, Provider [id number] Se[employer] (SEQ) complet ed Influenza , injectabl e, quadrival ent, preservat rachel free DoD influenza, seasonal, injectable-pf 2015 zzLef t Arm [id number] [employer] complet ed influenza , seasonal, injectabl e-pf 07/15/16 Given Ambulat ory Pharmac y Influenza, seasonal, injectable, preservative free 1 2015 Unknown, Provider [id number] 140 [employer] (SEQ) complet ed Influenza , seasonal, injectabl e, preservat rachel free DoD influenza, injectable, quadrivalent 2013 zzLef t Arm [id number] [employer] complet ed influenza , injectabl e, quadrival ent 06/07/14 Given Ambulat ory Pharmac y influenza, injectable, quadrivalent, contains preservative 1 2013 Unknown, Provider [id number] (IDB) complet ed influenza , injectabl e, quadrival ent, contains preservat rachel DoD tetanus, diphtheria, acellular pertu is [id number] tetanus, diphtheri a, acellular pertussis 11/20/13 Given Ambulat ory Pharmac y tetanus toxoid, reduced diphtheria toxoid, and acellular pertu is vaccine, adsorbed 1 2013 Unknown, Provider [id number] 115 [employer] (SKB) complet ed tetanus toxoid, reduced diphtheri a toxoid, and acellular pertussis vaccine, adsorbed DoD influenza, seasonal, injectable-pf 2013 zzLef t Arm [id number] 140 sanofi pasteur complet ed influenza , seasonal, injectabl e-pf 08/28/13 Given Ambulat ory Pharmac y Influenza, seasonal, injectable, preservative free 5 2013 Unknown, Provider [id number] 140 Sanofi Pasteur (PMC) complet ed Influenza , seasonal, injectabl e, preservat rachel free DoD influenza, seasonal, injectable-pf 2011 zzRig Arm [id number] 140 sanofi pasteur complet ed influenza , seasonal, injectabl e-pf 06/10/12 Given Ambulat ory Pharmac y Influenza, seasonal, injectable, preservative free 4 2011 Unknown, Provider [id number] 140 Sanofi Pasteur (PMC) complet ed Influenza , seasonal, injectabl e, preservat rachel free DoD influenza, seasonal, injectable-pf 2010 zzLef t Arm [id number] 140 sanofi pasteur complet ed influenza , seasonal, injectabl e-pf 06/15/11 Given Ambulat ory Pharmac y Influenza, seasonal, injectable, preservative free 3 2010 Unknown, Provider [id number] 140 Sanofi Pasteur ([facility]) complet ed Influenza , seasonal, injectabl e, preservat rachel free DoD influenza virus vaccine,split 2009 zzRig Arm [id number] 15 sanofi pasteur complet ed influenza virus vaccine,s plit 06/30/10 Given Ambulat ory Pharmac y influenza virus vaccine, split virus (incl. purified surface antigen)-reti red CODE 1 2009 Unknown, Provider [id number] 15 Sanofi Pasteur ([facility]) complet ed influenza virus vaccine, split virus (incl. purified surface antigen)- retired CODE [facility] Novel Influenza-H1N 1-09,live virus,nasal 2009 [id number] [employer] comple t ed Novel Influenza -[id number], live virus,rafal al 08/29/09 Given Ambulat ory Pharmac y Novel Influenza-H1N 1-09, live virus for nasal administratio n 1 2009 Unknown, Provider [id number] 125 [employer] (MED) complet ed Novel Influenza -[id number], live virus for nasal administr ation DoD influenza virus vaccine,split 2008 [facility] [id number] 15 sanofi pasteur complet ed influenza virus vaccine,s plit 05/16/09 Given Ambulat ory Pharmac y influenza virus vaccine, split virus (incl. purified surface antigen)-reti red CODE 1 2008 Unknown, Provider [id number] 15 Sanofi Pasteur ([facility]) complet ed influenza virus vaccine, split virus (incl. purified surface antigen)- retired CODE [facility] hepatitis B adult vaccine 2007 zzLef t Arm [id number] 43 GlaxoSmithKli ne complet ed hepatitis B adult vaccine 07/05/08 Given Ambulat ory Pharmac y hepatitis B vaccine, adult dosage 2 2007 Unknown, Provider [id number] 43 [employer]Kline (SKB) complet ed hepatitis B vaccine, adult dosage DoD hepatitis B adult vaccine 2007 zzLef t Arm [id number] 43 GlaxoSmithKli ne complet ed hepatitis B adult vaccine 04/04/08 Given Ambulat ory Pharmac y hepatitis B vaccine, adult dosage 1 2007 Unknown, Provider [id number] [place] [address] (SKB) complet ed hepatitis B vaccine, adult dosage DoD Encounters Combined list of: 1) Encounters from Department of Veterans Affairs facilities going backup to the last 18 months, not all VA inpatient encounters are included; 2) Encounters from the Department of Defense facilities going backup to 280 months. Location Location Details Encounter Type Encounter Number Reason For Visit Attending Provider ADM Date DC Date Status Disposition Source [address] [place] [address] [place] [facility] [facility] [facility] [place] OUTPATIENT [id number] [phone] physica l to go to school for medical assista nt ALDO DAY 04/04 Released w/o Limitations [address] [place] [address] [place] [facility] [facility] [place] [address] [place] [address] [place] [facility] [facility] [place] TELE CONSULT [id number] Medicat ion Request HARDY GLOVER 05/[address] [place] [address] [place] [facility] [facility] [place] [address] [place] [address] [place] [facility] [facility] [place] OUTPATIENT [id number] rash on hand... .[phone] ADELINE GU 07/05 Released w/o Limitations [address] [place] [address] [place] [facility] [facility] [place] [address] [place] [address] [place] [facility] [facility] [place] TELE CONSULT [id number] Medicat ion Request ALDO DAY 08/[address] [place] [address] [place] [facility] [facility] [place] [address] [place] [address] [place] [facility] [place] [facility] [place] OUTPATIENT [id number] annual pap.... [id number] WANDA FELICIANO 09/18 Released w/o Limitations [address] [place] [address] [place] [facility] [facility] T[place] Blue[place] [address] [place] [address] [place] B [facility]Form Designer ecology) OUTPATIENT [id number] feared medical conditi on not demonst rated MARGARETTE TABARES 10/03 Released w/o Limitations [employer] ([facility]G ynecolo gy) [employer] ([facility]Ob/ Form Designer) TELE CONSULT [id number] us and lab results MARGARETTE TABARES 10/18 [employer] ([facility]O b/Form Designer) [employer] ([facility]Form Designer ecology) OUTPATIENT [id number] preg test LUCERO CHETNA A 11/02 Released w/o Limitations [employer] ([facility]G ynecolo gy) [employer] ([facility] [facility] T[place] Blue) TELE CONSULT [id number] Medicat ion Request ALDO DAY 11/05 [employer] ([facility]S [place] [facility] T[facility] Blue) [employer] ([facility] [facility] Tm Green) OUTPATIENT [id number] medicat ion/OB questio AFSHIN Martin 11/09 Released w/o Limitations [employer] ([facility] [facility] Tm Green[place] [employer] ([facility]S[facility] tt [facility] Tm Blue) OUTPATIENT [id number] initiat e OB care ANNE HURTADO 11/12 Released w/o Limitations [employer] ([facility] [facility] T[facility] Blue) [employer] ([facility]Sco tt [facility] T[place] Blue) OUTPATIENT [id number] early pregnan cy; hyperem ADELINE Vidal 11/19 Released w/o Limitations [employer] ([facility] [facility] T[place] Blue) [employer] ([facility]Ob/ Form Designer) OUTPATIENT [id number] transfe r in from [facility] EDC [id number] ZACK TOWNSEND 12/17 Released w/o Limitations [employer] ([facility]O b/Form Designer) [employer] ([facility]Ob/ Form Designer) OUTPATIENT [id number] new ob - edc jul 10 JE LUNA 01/02 Released w/o Limitations [employer] ([facility]O b/Form Designer) [employer] ([facility]Ob/ Form Designer) TELE CONSULT [id number] renatora JE Mathews 01/03 [employer] ([facility]O b/Form Designer) [employer] ([facility]Form Designer ecology) TELE CONSULT [id number] Needs note from doctor TRUNG HALEY 01/16 [facility] [employer] ([facility]G ynecolo gy) [employer] ([facility]Ob/ Form Designer) OUTPATIENT [id number] 16 wks edc jul 10 JE LUNA 01/23 Released w/o Limitations [employer] ([facility]O b/Form Designer) [employer] ([facility]Ob/ Form Designer) TELE CONSULT [id number] request ing letter TRUNG HALEY 01/23 [facility] [employer] ([facility]O b/Form Designer) [facility] [employer] ([facility]Ob/ Form Designer) TELE CONSULT [id number] ua symptom s TRUNG HALEY 02/05 [facility] [employer] ([facility]O b/Form Designer) [facility] [employer] ([facility]Ob/ Form Designer) OUTPATIENT [id number] NIC - EDC jul 10 ZACK TOWNSEND 02/20 Released w/o Limitations [employer] [employer] ([facility]O b/Form Designer) [facility] [employer] ([facility]Ob/ Form Designer) TELE CONSULT [id number] JE LUNA 02/28 [facility] [employer] ([facility]O b/Form Designer) [facility] [employer] ([facility])(Ob/ Form Designer) TELE CONSULT [id number] OB w/ contrac mary N/KELSIE FELICIANO 03/11 [employer] ([facility]O b/Form Designer) [employer] ([facility])(Ob/ Form Designer) OUTPATIENT [id number] nic - edc jul 10 KHANHMARGARETTE GREER Duglas 03/25 Released w/o Limitations [employer] ([facility]O b/Form Designer) [facility] [employer] ([facility])(Ob/ Form Designer) TELE CONSULT [id number] request for med refill JOSE D CESARIO L 04/09 [employer] ([facility])(O b/Form Designer) [facility] Medical [facility] [employer] ([facility])(Ob/ Form Designer) TELE CONSULT [id number] lab result MARGARETTE TABARES Duglas 04/12 [facility] [employer] ([facility])(O b/Form Designer) [facility] Medical [facility] [employer] ([facility])(Ob/ Form Designer) OUTPATIENT [id number] nic - edc jul 10 JOSE D, CESARIO L 04/16 Released with Work/Duty Limitations [employer] Medical [facility] [employer] ([facility])(O b/Form Designer) [facility] Medical [facility] [employer] ([facility])(Ob/ Form Designer) TELE CONSULT [id number] test results VERONICA JOHNS 04/30 [facility] [employer] ([facility])(O b/Form Designer) [facility] Medical [facility] [employer] ([facility])(Ob/ Form Designer) OUTPATIENT [id number] nic - edc jul 10 - discuss deliver y options BRIE CRUZ 05/16 Released w/o Limitations [employer] ([facility])(O b/Form Designer) [facility] Medical [facility] [employer] ([facility]Sco tt [facility] Fam Res Tm Green) OUTPATIENT [id number] flu shot for high risk pt AL TALBOT Delgado 05/16 Released w/o Limitations [employer] ([facility]S cott [facility] Fam Res Tm Green) [facility] [employer] ([facility])(Ob/ Form Designer) TELE CONSULT [id number] flu symptom s TRUNG HALEY 05/28 [facility] [employer] ([facility])(O b/Form Designer) [facility] [employer] ([facility])(Ob/ Form Designer) OUTPATIENT [id number] NIC - EDC JUL 10 JE ARIZA 06/03 Released w/o Limitations [facility] [employer] ([facility])(O b/Form Designer) [employer] ([facility])(Ob/ Form Designer) OUTPATIENT [id number] NIC - EDC JUL 10 BRIE CRUZ 06/11 Released w/o Limitations [employer] ([facility])(O b/Form Designer) [employer] ([facility])(Ob/ Form Designer) OUTPATIENT [id number] nic - edc jul 10 JE ARIZA 06/18 Released w/o Limitations [employer] ([facility])(O b/Form Designer) [facility] [employer] ([facility])(Lion e Managemen t) TELE CONSULT [id number] CM-Hosp ital Admissi on NIC STYLESIN 06/25 [facility] [employer] ([facility])(C ase Managem ent) [facility] [employer] ([facility])(Ob/ Form Designer) TELE CONSULT [id number] burning during urinati on DORI DAVENPORT L 07/01 [facility] [employer] ([facility])(O b/Form Designer) [facility] [employer] ([facility])(Sco tt [facility] FAMRES Tm Blue) OUTPATIENT [id number] lactati on consult from WANDA Shine 07/05 Released w/o Limitations [facility] [employer] ([facility]S cott [facility] FAMRES Tm Blue) [facility] Medical [facility] [employer] ([facility])(Ob/ Form Designer) OUTPATIENT [id number] 6 wk pp - deliver ed Jun 10 BRIE CRUZ 08/05 Released w/o Limitations [facility] [employer] ([facility])(O b/Form Designer) [facility] [employer] ([facility]Sco tt [facility] FAMRES Tm Blue) TELE CONSULT [id number] ALDO Singh 08/14 [facility] [employer] ([facility]S cott [facility] FAMRES Tm Blue) [facility] [employer] ([facility])(Form Designer ecology) OUTPATIENT [id number] mirena inserti on BRIE CRUZ 08/20 Released w/o Limitations [facility] [employer] ([facility])(G ynecodenis gy) [address] [place] [address] [employer] ([facility])(Sco tt [facility] FAMRES Tm Blue) OUTPATIENT [id number] dry hands and feet cell# [id number] [id number] LEXY BRICENO 08/29 Released w/o Limitations [address] [place] [address] [employer] ([facility])(S cott OF FAMRES Tm Blue) [address] [place] [address] [employer] ([facility])(Ob/ Form Designer) TELE CONSULT [id number] some concern s with JE GALE 09/[address] [place] [address] [employer] ([facility])(O b/Form Designer) [address] [place] [address] [employer] ([facility])(Sco tt [facility] FAMRES Tm Blue) OUTPATIENT [id number] fu left hand [phone] VASU CARPENTER 10/18 Released w/o Limitations [address] [place] [address] [employer] ([facility])(S cott [facility] FAMRES Tm Blue) [address] [place] [address] [employer] [facility]Hubert matology) OUTPATIENT [id number] DYSHIDR OSIS MONI NICOLE 11/08 Released w/o Limitations [address] [place] [address] [employer] ([facility])(D ermatol ogy) [address] [place] [address] [employer] ([facility])(Sco tt [facility] FAMRES Tm Blue) TELE CONSULT [id number] refill narc VASU CARPENTER 12/[address] [place] [address] [employer] ([facility]S cott [facility] FAMRES Tm Blue) [address] [place] [address] [employer] [facility])(Ob/ Form Designer) TELE CONSULT [id number] appt VERONICA JOHNS 12/[address] [place] [address] [employer] ([facility])(O b/Form Designer) [address] [place] [address] [employer] ([facility])(Opt ometry) OUTPATIENT [id number] eye exam... [id number] LUZ MUHAMMAD 12/31 Released w/o Limitations [address] [place] [address] [employer] ([facility])(O ptometr y) [address] [place] [address] [employer] ([facility])(Form Designer ecology) OUTPATIENT [id number] iud removal BRIE CRUZ 01/14 Released w/o Limitations [address] [place] [address] [employer] ([facility])(G ynecolo gy) [address] [place] [address] [employer] ([facility])(Sco tt [facility] FAMRES Tm Blue) OUTPATIENT [id number] discuss quittin g smoking /ear acupunt ure ALDO DAY 01/24 Released w/o Limitations [address] [place] [address] [employer] ([facility]S cott [facility] FAMRES Tm Blue) [address] [place] [address] [employer] ([facility])(Sco tt [facility] FAMRES Tm Blue) TELE CONSULT [id number] Medical Inquiry ALDO DAY 03/[address] [place] [address] [employer] [facility]S cott [facility] Tm Blue) [address] [place] [address] [place] [employer] [facility]Sco tt [facility] FAMRES Tm Blue) OUTPATIENT [id number] f/u ibs/gal lbladde r ALDO DAY 04/15 Released w/o Limitations [address] [place] [address] [employer] ([facility])(S [facility] FAMRES Tm Blue) [address] [place] [address] [employer] [facility])(Form Designer ecology) OUTPATIENT [id number] bp check and review bcp - [id number] BRIE CRUZ 04/17 Released w/o Limitations [address] [place] [address] [employer] [facility])(G ynecolo gy) [address] [place] [address] [employer] [facility])(Fam jesus Med Tm B Non-AD BCC) OUTPATIENT [id number] Congest ion [phone] MONI BOSS 08/05 Released w/o Limitations [address] [place] [address] [employer] ([facility])(F amily Med Tm B Non-AD BCC) [address] [place] [address] [employer] [facility])(Form Designer ecology) OUTPATIENT [id number] pregnan cy test KELSIE INIGUEZ 08/05 Released w/o Limitations [address] [place] [address] [employer] ([facility])(G ynecolo gy) [address] [place] [address] [employer] ([facility])(War rior Op Med Cln Tm A Ad) TELE CONSULT [id number] Patient is request ing a refill on med Amitrip tyline. SIDDHARTH CURTIS 08/[address] [place] [address] [employer] ([facility])(W arrior Op Med Cln Tm A Ad) [address] [place] [address] [employer] [facility])(Fam jesus Med Tm B Non-AD BCC) OUTPATIENT [id number] wrist pain [phone] EFREN MAYA 09/17 Released w/o Limitations [address] [place] [address] [facility]F amily Med Tm B Non-AD BCC) [address] [place] [address] [place] [facility])(War rior Op Med Cln Tm A Ad) OUTPATIENT [id number] feeling nervous all the time [phone] EFREN MAYA Duglas 02/11 Released w/o Limitations [address] [place] [address] [place] [facility]W arrior Op Med Cln Tm A Ad) [address] [place] [address] [place] [facility])(War rior Op Med Cln Tm A Ad) OUTPATIENT [id number] abd pain [phone] EFREN MAYA Duglas 04/27 Released w/o Limitations [address] [place] [address] [place] [facility])(W arrior Op Med Cln Tm A Ad) [address] [place] [address] [place] [facility])(War rior Op Med Cln Tm A Ad) TELE CONSULT [id number] Lab Result Review results with patient EFREN MAYA Duglas 04/[address] [place] [address] [place] [facility])(W arrior Op Med Cln Tm A Ad) [address] [place] [address] [place] [facility])(War rior Op Med Cln Tm A Ad) TELE CONSULT [id number] Notes Entered by: GENA MARTE 17 Dec 2011 1237 ------- ------- ------- ------- -- Tcon for possibl e sinus infecti on PA Florentino ph [phone] EVONNE Harrison 12/[address] [place] [address] [place] [facility])(W arrior Op Med Cln Tm A Ad) [address] [place] [address] [place] [facility])(War rior Op Med Cln Tm A Ad) OUTPATIENT [id number] sinus infecti on [id number] LUIZA MAYABrice Ardon 12/23 Released w/o Limitations [address] [place] [address] [place] [facility])(W arrior Op Med Cln Tm A Ad) [address] [place] [address] [place] [facility])(War rior Op Med Cln Tm A Ad) TELE CONSULT [id number] Notes Entered by: Duglas SILVESTRE 09 Mar 2012 1342 ------- ------- ------- ------- -- Med refill Nexium 40 mg daily Lance /byron [id number] ANDRAE SIMS 03/[address] [place] [address])(W arrior Op Med Cln Tm A Ad) [address] [place] [address])(War rior Op Med Cln Tm A Ad) OUTPATIENT [id number] cough congest ion [phone] LOIS IBARRA Delgado 06/09 Released w/o Limitations [address] [place] [address])(W arrior Op Med Cln Tm A Ad) [address] [place] [address])(Form Designer ecology) TELE CONSULT [id number] Notes Entered by: Toby YA 10 Jun 2012 1448 ------- ------- ------- ------- -- Walk in HCG LARY NICHOLAS 06/[address] [place] [address])(Geoffrey arenas) [address] [place] [address])(Fam jesus Med Tm B Non-AD BCC) TELE CONSULT [id number] Notes Entered by: RONAL NUNO 22 Jun 2012 0925 ------- ------- ------- ------- -- Vaginal pain, zeldaa l JE Tiwari 06/[address] [place] [address])(F amily Med Tm B Non-AD BCC) [address] [place] [address])(Form Designer ecology) TELE CONSULT [id number] Notes Entered by: LEVON FLORES 22 Jun 2012 1117 ------- ------- ------- ------- -- F/u appt for ER visit LARY NICHOLAS 06/[address] [place] [address])(Geoffrey razo gy) [address] [place] [address])(Form Designer ecology) TELE CONSULT [id number] Notes Entered by: KARTHIK SANDOVAL 06 Jul 2012 1352 ------- ------- ------- ------- -- Cherie newton appt - Josue ruelas - [phone] MARY JO ELKINS Dilma 07/06 Referred for Appointment [address] [place] [address])(G ynecodenis gy) [address] [place] [address])(Form Designer ecology) OUTPATIENT [id number] Follow up ER visit, lower pelvic pain, UTI, dysuria and mild inconti ANI Evans 07/15 Released w/o Limitations [address] [place] [address])(G dung gy) [address] [place] [address])(Ob/ Form Designer) TELE CONSULT [id number] Notes Entered by: TESSA SORIA 12 Aug 2012 1007 ------- ------- ------- ------- -- Lab result VERONICA JOHNS 08/[address] [place] [address])(O b/Form Designer) [address] [place] [address])(Andrew rior Op Med Cln Tm A Ad) TELE CONSULT [id number] Notes Entered by: RONAL NUNO 17 Aug 2012 1020 ------- ------- ------- ------- -- Vaginal itching /ANDRAE Galo 08/[address] [place] [address])(W arrior Op Med Cln Tm A Ad) [address] [place] [address])(Form Designer ecology) TELE CONSULT [id number] Notes Entered by: TESSA SORIA 30 Aug 2012 1003 ------- ------- ------- ------- -- US result VERONICA JOHNS 08/[address] [place] [address])(Geoffrey arenas) [address] [place] [address])([facility] Team 3) OUTPATIENT [id number] neck and shoulde r pain x 2 weeks; denies injury, LOIS IBARRA 10/11 Released w/o Limitations [address] [place] [address] [place] [employer] [facility] Team 3) [address] [place] [address] [place] [facility])([facility] Team 3) TELE CONSULT [id number] Notes Entered by: RONAL NUNO 19 Oct 2012 1356 ------- ------- ------- ------- -- Flu symptom s ANDRAE Nguyen 10/[address] [place] [address] [place] [facility])([facility] Team 3) [address] [place] [address] [place] [facility])([facility] Team 3) TELE CONSULT [id number] Notes Entered by: SOPHIA LARA 08 Nov 2012 1206 ------- ------- ------- ------- -- Ling Devlin [id number] ANDRAE HEDRICK 11/[address] [place] [address] [facility] Team 3) [address] [place] [address] [place] [facility])(War rior Op Med Cln Tm A Ad) TELE CONSULT [id number] Notes Entered by: OWEN NEGRETE 21 Nov 2012 0824 ------- ------- ------- ------- -- Josue ruelas/ANDRAE Mariscal 11/[address] [place] [address] [place] [facility])(W arrior Op Med Cln Tm A Ad) [address] [place] [address] [place] [facility])(War rior Op Med Cln Tm A Ad) TELE CONSULT [id number] Notes Entered by: KANU ANGEL 14 Dec 2012 1129 ------- ------- ------- ------- -- Network Results - Physica l Therapy - 3 LOIS IBARRA 12/14 [facility] Medical Group [facility])(W arrior Op Med Cln Tm A Ad) [facility])([facility] Team 3) TELE CONSULT [id number] Notes Entered by: SHAUN JOHNSTON 22 Dec 2012 1443 ------- ------- ------- ------- -- Med Refill- Josue ruelas/ ANDRAE SIMS 12/22 [facility])([facility] Team 3) [address] [place] [address])(War rior Op Med Cln Tm A Ad) TELE CONSULT [id number] Notes Entered by: KANU ANGEL 23 Jan 2013 1211 ------- ------- ------- ------- -- Network Results - Physica l Therapy - 3 MANN BUCIO 01/23 [facility] Medical Group [facility])(W arrior Op Med Cln Tm A Ad) [address] [place] [address])([facility] Team 3) TELE CONSULT [id number] Notes Entered by: Duglas SILVESTRE 25 Jan 2013 1510 ------- ------- ------- ------- -- Med refill Leonel MACARENA THOMAS I 01/25 [facility] Medical [facility])([facility] Team 3) [facility] Medical [facility])(War rior Op Med Cln Tm A Ad) OUTPATIENT [id number] acid relux-m ed not working , ring in L ear [id number] RAHUL SCHMITT 02/21 Released w/o Limitations [facility])(W arrior Op Med Cln Tm A Ad) [address] [place] [address])(War rior Op Med Cln Tm A Ad) TELE CONSULT [id number] Notes Entered by: RAHUL SCHMITT 22 Feb 2013 1254 ------- ------- ------- ------- -- F/u from labs RAHUL SCHMITT 02/22 [facility] Medical [facility])(W arrior Op Med Cln Tm A Ad) [facility] Medical [facility])(War rior Op Med Cln Tm A Ad) TELE CONSULT [id number] Notes Entered by: STARLA MARES 03 Mar 2013 1510 ------- ------- ------- ------- -- Ear pain/Giraldo jae / JODIE RODRIGUEZ 03/03 Referred for Appointment [facility] Medical [facility])(W arrior Op Med Cln Tm A Ad) [address] [place] [address])(War rior Op Med Cln Tm A Ad) OUTPATIENT [id number] ear pain JYOTHI BATES 03/06 Released w/o Limitations [address] [place] [address])(W arrior Op Med Cln Tm A Ad) [address] [place] [address])(War rior Op Med Cln Tm A Ad) TELE CONSULT [id number] Notes Entered by: SOPHIA LARA 09 Mar 2013 1506 ------- ------- ------- ------- -- Referra maan Colon - [id number] [facility] JODIE RODRIGUEZ 03/09 Referred for Appointment [facility] Medical Group [facility])(W arrior Op Med Cln Tm A Ad) [facility] Medical [facility])(Form Designer ecology) TELE CONSULT [id number] Notes Entered by: SUSAN CONTRERAS 27 Apr 2013 0942 ------- ------- ------- ------- -- Walk in for YONG Vaughan 04/[address] [place] [address])(G ynecolo gy) [address] [place], [place] [address]B [facility])(War rior Op Med Cln Tm A Ad) TELE CONSULT [id number] Notes Entered by: Duglas SILVESTRE 28 Apr 2013 1157 ------- ------- ------- ------- -- Sinus infecti on Hargr es EB DOMINGO 04/[address] [place] [address] Group [facility])(W arrior Op Med Cln Tm A Ad) [address] [place], [place] [address]B [facility])(War rior Op Med Cln Tm A Ad) TELE CONSULT [id number] Notes Entered by: STARLA MARES 01 May 2013 0827 ------- ------- ------- ------- -- [facility]618 .[phone] EB DOMINGO 05/[address] [place] [address])(W arrior Op Med Cln Tm A Ad) [address] [place] [address])(Ob/ Form Designer) OUTPATIENT [id number] New OB with IBS EDC approx Oct 14. CLEMENTINA DAVILA 05/01 Released w/o Limitations [address] [place], [place] [address]B ([facility])(O b/Form Designer) [address] [place] [address])(Ob/ Form Designer) OUTPATIENT [id number] Notes Entered by: JENI CHEN 05 May 2013 1132 ------- ------- ------- ------- -- NIC EDC 5May14/ repeat u/s CLEMENTINA ADVILA 05/05 Released w/o Limitations [address] [place], [place] [address]B ([facility])(O b/Form Designer) [address] [place], [place] [address] [facility])(Ob/ Form Designer) TELE CONSULT [id number] Notes Entered by: MARY JO ELKINS 10 May 2013 1250 ------- ------- ------- ------- -- Constip CLEMENTINA Stanley 05/10 [facility] Medical [facility])(O b/Form Designer) [facility] Medical [facility])(Ob/ Form Designer) OUTPATIENT [id number] NIC EDC [id number] GUERRERO DWYER Reynaldo 05/25 Released w/o Limitations [address] [place] [address])(O b/Form Designer) [address] [place] [address])(Ob/ Form Designer) TELE CONSULT [id number] Notes Entered by: MARY JO ELKINS 03 Jul 2013 1451 ------- ------- ------- ------- -- Medicat MARY JO Guerrero 07/[address] [place] [address])(O b/Form Designer) [address] [place] [address])(Ob/ Form Designer) TELE CONSULT [id number] Notes Entered by: MARY JO ELKINS 05 Jul 2013 1309 ------- ------- ------- ------- -- Cold Symptom s MARY JO ELKINS 07/[address] [place] [address])(O b/Form Designer) [address] [place] [address])(Ob/ Form Designer) OUTPATIENT [id number] NIC RAHMAN December 13 VIOLET WALKER 07/06 Released w/o Limitations [address] [place] [address])(O b/Form Designer) [address] [place] [address])(Ob/ Form Designer) TELE CONSULT [id number] Notes Entered by: MARY JO ELKINS 06 Jul 2013 1426 ------- ------- ------- ------- -- MARY JO Flanagan 07/[address] [place] [address])(O b/Form Designer) [facility] Medical [facility])(Ob/ Form Designer) TELE CONSULT [id number] Notes Entered by: MARY JO ELKINS 17 Jul 2013 1109 ------- ------- ------- ------- -- Anxiety MARY JO ELKINS 07/[address] [place] [address] [place] [facility])(O b/Form Designer) [address] [place] [address])(Ob/ Form Designer) TELE CONSULT [id number] Notes Entered by: LASHELL PARIS 18 Jul 2013 0758 ------- ------- ------- ------- -- Network Results -OBSTET RICS 3 YULIYA GUERRERO Reynaldo 07/[address] [place] [address])(O b/Form Designer) [address] [place] [address] [place] [facility])(Ob/ Form Designer) OUTPATIENT [id number] evaluat ion for anti-an xiety medicat ion d/t acute panic attacks TARIQJASWINDERGUERRERO Reynaldo 07/18 Released w/o Limitations [address] [place] [address])(O b/Form Designer) [address] [place] [address])(Ob/ Form Designer) TELE CONSULT [id number] Notes Entered by: MARY JO ELKINS 11 Aug 2013 1606 ------- ------- ------- ------- -- Medicat ion Refill GUERRERO DWYER Reynaldo 08/[address] [place] [address] [place] [facility])(O b/Form Designer) [address] [place] [address])(Ob/ Form Designer) TELE CONSULT [id number] Notes Entered by: LASHELL PARIS 16 Aug 2013 1040 ------- ------- ------- ------- -- Network Results -OBSTET RICS 08/14/13 ANI CHOI 08/[address] [place] [address])(O b/Form Designer) [address] [place] [address])(Ob/ Form Designer) OUTPATIENT [id number] nic - [facility] december 13 GUERRERO DWYER Reynaldo 08/17 Released w/o Limitations [address] [place] [address] [facility])(O b/Form Designer) [address] [place] [address])(Ob/ Form Designer) TELE CONSULT [id number] Notes Entered by: ST KATERYNA DAVILA 27 Aug 2013 1307 ------- ------- ------- ------- -- anxiety CLEMENTINA DAVILA 08/[address] [place] [address])(O b/Form Designer) [address] [place] [address])(Ob/ Form Designer) OUTPATIENT [id number] follow up appt/an xiety attacks /treatm ent plan GUERRERO DWYER 08/28 Released w/o Limitations [address] [place] [address])(O b/Form Designer) [address] [place] [address])(Ob/ Form Designer) TELE CONSULT [id number] Notes Entered by: Aster DWYER 29 Aug 2013 0908 ------- ------- ------- ------- -- Anxiety GUERRERO DWYER 08/[address] [place] [address])(O b/Form Designer) [address] [place] [address])(Ob/ Form Designer) TELE CONSULT [id number] Notes Entered by: Duglas DAVIES 05 Sep 2013 1131 ------- ------- ------- ------- -- ANTONIO Puente 09/[address] [place] [address])(O b/Form Designer) [address] [place] [address])(Ob/ Form Designer) OUTPATIENT [id number] f/u hospita lizatio n/anxie ANI Irving 09/08 Released w/o Limitations [address] [place] [address])(O b/Form Designer) [address] [place] [address])(Ob/ Form Designer) TELE CONSULT [id number] Notes Entered by: ME JARED CANO 12 Sep 2013 1146 ------- ------- ------- ------- -- Insomni a 24 6/7 week Ob-per our convers atGUERRERO Asher 09/[address] [place] [address] [place] [facility])(O b/Form Designer) [address] [place] [address] [place] [facility])(Sco tt [facility] [place]) TELE CONSULT [id number] Notes Entered by: Jim ENRIQUEZ 12 Sep 2013 1747 ------- ------- ------- ------- -- seen inpatie nt, needs referra THELMA Maurice 09/[address] [place] [address] [place] [facility])(S cott [facility] [place]) [address] [place] [address] [place] [facility])(Ob/ Form Designer) TELE CONSULT [id number] Notes Entered by: MARY JO ELKINS 13 Sep 2013 1540 ------- ------- ------- ------- -- MACARENA Rao I 09/[address] [place] [address])(O b/Form Designer) [address] [place] [address] [place] [facility])(Ob/ Form Designer) OUTPATIENT [id number] NEW MEDICAT ION FOLLOW UP/EDC DECEMBER 13 GUERRERO DWYER 09/15 Released w/o Limitations [address] [place] [address])(O b/Form Designer) [address] [place] [address])(Ob/ Form Designer) TELE CONSULT [id number] Notes Entered by: MARY JO ELKINS 19 Sep 2013 1505 ------- ------- ------- ------- -- Medicat ion Increas e GUERRERO DWYER 09/[address] [place] [address])(O b/Form Designer) [address] [place] [address])(Form Designer ecology) TELE CONSULT [id number] Notes Entered by: LASHELL PARIS 20 Sep 2013 0816 ------- ------- ------- ------- -- Network Results -[facility] 09/12/13 ANI CHOI 09/[address] [place] [address] [employer] ([facility])(G ynecolo gy) [facility] Medical [facility] [employer] ([facility])(Ob/ Form Designer) OUTPATIENT [id number] nic edc december 13 THELMA HA 09/21 Released with Work/Duty Limitations [address] [place] [address] [employer] ([facility])(O b/Form Designer) [address] [place] [address] [employer] ([facility])(Ob/ Form Designer) OUTPATIENT [id number] HROB EDCDecember 13 GUERRERO DWYER 09/25 Released w/o Limitations [address] [place] [address] [employer] ([facility])(O b/Form Designer) [address] [place] [address] [employer] ([facility])(Ob/ Form Designer) TELE CONSULT [id number] Notes Entered by: YAZAN MILLS 26 Sep 2013 0920 ------- ------- ------- ------- -- HROB-vo augustine/ CLEMENTINA Perez 09/[address] [place] [address] [employer] ([facility])(O b/Form Designer) [address] [place] [address] [employer] ([facility])(Ob/ Form Designer) TELE CONSULT [id number] Notes Entered by: MARY JO ELKINS 02 Oct 2013 1052 ------- ------- ------- ------- -- MARY JO Flanagan 10/[address] [place] [address] [place] [employer] ([facility])(O b/Form Designer) [address] [place] [address] [place] [employer] ([facility])(Form Designer ecology) TELE CONSULT [id number] Notes Entered by: Aster DWYER 03 Oct 2013 0803 ------- ------- ------- ------- -- Abnormdelgado l glucose screen GUERRERO DWYER 10/[address] [place] [address] [place] [employer] ([facility])(G ynecolo gy) [address] [place] [address] [employer] ([facility])(Ob/ Form Designer) OUTPATIENT [id number] HROB/ EDC December 13 GUERRERO DWYER 10/05 Released w/o Limitations [address] [place] [address] [employer] ([facility])(O b/Form Designer) [facility] Medical Group [place] [employer] ([facility])(Form Designer ecology) TELE CONSULT [id number] Notes Entered by: Aster DWYER 06 Oct 2013 1542 ------- ------- ------- ------- -- Elevate d 3 hr GTT MACARENA THOMAS I 10/[address] [place] [address] Group [place] [employer] ([facility])(G ynecolo gy) [facility] Medical Group [place] [employer] ([facility])(Ob/ Form Designer) OUTPATIENT [id number] HROB/ EDC [id number] GUERRERO DWYER 10/13 Released w/o Limitations [facility] Medical Group [place] [employer] ([facility])(O b/Form Designer) [facility] Medical Group [place] [employer] ([facility])(Ob/ Form Designer) TELE CONSULT [id number] Notes Entered by: LASHELL PARIS 18 Oct 2013 0905 ------- ------- ------- ------- -- Network Results -OBSTET RICS 10/05/13 CLEMENTINA DAVILA 10/[address] [place] [address] Group [place] [employer] ([facility])(O b/Form Designer) [facility] Medical Group [place] [employer] ([facility])(Ob/ Form Designer) OUTPATIENT [id number] HROB/ EDC December 13 GUERRERO DWYER 10/19 Released w/o Limitations [facility] Medical Group [place] [employer] ([facility])(O b/Form Designer) [facility] Medical Group [place] [employer] ([facility])(Ob/ Form Designer) TELE CONSULT [id number] Notes Entered by: LASHELL PARIS 20 Oct 2013 1131 ------- ------- ------- ------- -- Network Results -OBSTET RICS 10/06/13 GUERRERO DWYER 10/[address] [place] [address] Group [place] [employer] ([facility])(O b/Form Designer) [address] [place] [address] Group [place] [employer] ([facility])([facility]) TELE CONSULT [id number] Notes Entered by: CATHY TOMAS 25 Oct 2013 1058 ------- ------- ------- ------- -- Message from OB TEAM CATHY TOMAS 10/25 [facility] Medical Group [place] [employer] ([facility])(O [facility]) [facility] Medical Group [place] [employer] ([facility])(Form Designer ecology) TELE CONSULT [id number] Notes Entered by: Aster DWYER 26 Oct 2013 0954 ------- ------- ------- ------- -- Pt phoneca GUERRERO Whitaker 10/26 [facility] Medical Group [place] [employer] ([facility])(G ynecolo gy) [facility] Medical Group [place] [employer] ([facility])(Ob/ Form Designer) OUTPATIENT [id number] HROB EDC [id number] CLEMENTINA DAVILA 10/26 Released w/o Limitations [facility] Medical Group [place] [employer] ([facility])(O b/Form Designer) [facility] Medical Group [place] [employer] ([facility])(Ob/ Form Designer) TELE CONSULT [id number] Notes Entered by: RADHA LANZA 27 Oct 2013 1511 ------- ------- ------- ------- -- Medicat ion inquiry GAYE DECKER 10/27 [facility] Medical Group [place] [employer] ([facility])(O b/Form Designer) [facility] Medical Group [place] [employer] ([facility])(Ob/ Form Designer) TELE CONSULT [id number] Notes Entered by: RADHA LANZA 30 Oct 2013 0915 ------- ------- ------- ------- -- Medicat ion reactio GAYE Melissa 10/30 [facility] Medical Group [place] [employer] ([facility])(O b/Form Designer) [facility] Medical Group [place] [employer] ([facility])([facility]) OUTPATIENT [id number] [facility] REYES CHOWDHURY 11/03 Released w/o Limitations [facility] Medical Group [place] [employer] ([facility])(N utritio nal Medicin e) [facility] Medical Group [place] [employer] ([facility])(Ob/ Form Designer) TELE CONSULT [id number] Notes Entered by: RADHA LANZA 08 Nov 2013 0803 ------- ------- ------- ------- -- Refill prescri ption GAYE DECKER 11/[address] [place] [address] [employer] ([facility])(O b/Form Designer) [address] [place] [address] [employer] ([facility])(War rior Op Med Cln Tm A Ad) OUTPATIENT [id number] Cough/C ongesti on TERESO-JORDIN ABDI CHETNA A 11/08 Released w/o Limitations [address] [place] [address] [employer] ([facility])(W arrior Op Med Cln Tm A Ad) [address] [place] [address] Group [employer] ([facility])(Ob/ Form Designer) OUTPATIENT [id number] HROB EDC [id number] GUERRERO DWYER 11/13 Released w/o Limitations [address] [place] [address] [employer] ([facility])(O b/Form Designer) [address] [place] [address] [place] ([facility])(Ob/ Form Designer) OUTPATIENT [id number] HROB/ED C December 13 CLEMENTINA DAVILA 11/27 Released w/o Limitations [address] [place] [address] [employer] ([facility])(O b/Form Designer) [address] [place] [address] [employer] ([facility])(Ob/ Form Designer) TELE CONSULT [id number] Notes Entered by: JANINA MUHAMMAD 04 Dec 2013 0933 ------- ------- ------- ------- -- Nausea and dry heaving MACARENA THOMAS I 12/[address] [place] [address] [employer] ([facility])(O b/Form Designer) [address] [place], [place] [address]B ([facility])(Ob/ Form Designer) TELE CONSULT [id number] Notes Entered by: LASHELL PARIS 11 Dec 2013 1121 ------- ------- ------- ------- -- Network Results -OBSTET RICS 12/04/13 GUERRERO DWYER 12/[address] [place] [address] [place] [employer] ([facility])(O b/Form Designer) [address] [place] [address] [employer] ([facility])(Ob/ Form Designer) OUTPATIENT [id number] Post check up/del December 13 CLEMENTINA DAVILA 12/21 Released w/o Limitations [employer] [place] [employer] ([facility])(O b/Form Designer) [employer] [place] [employer] ([facility])(Ob/ Form Designer) OUTPATIENT [id number] 6WPP/ Del 05 Dec 2013 ANI CHOI 01/23 Released w/o Limitations [employer] ([facility])(O b/Form Designer) [employer] [place] [employer] ([facility])(Form Designer ecology) OUTPATIENT [id number] diaphra ALYSSA Michel 02/20 Released w/o Limitations [employer] ([facility])(G ynecolo gy) [employer] [place] [employer] ([facility])(War rior Op Med Cln Tm A Ad) TELE CONSULT [id number] Notes Entered by: Abelino SILVESTRE 01 May 2014 1304 ------- ------- ------- ------- -- SOFIA RUVALCABA/Gayle ceballos/ 18 [phone] EVONNE BRAR 05/01 Medical [employer] [place] [employer] ([facility])(W arrior Op Med Cln Tm A Ad) [employer] ([facility])(Form Designer ecology) OUTPATIENT [id number] LUISANA ALEXANDER 06/04 Released w/o Limitations [employer] ([facility])(G ynecolo gy) [employer] ([facility])(Form Designer ecology) OUTPATIENT [id number] Paragar d Inserti on [phone] LUISANA DEVLIN 06/18 Released w/o Limitations [employer] ([facility])(G ynecolo gy) [employer] ([facility])(War rior Op Med Cln Tm A Ad) OUTPATIENT [id number] right wrist pain - [id number] CHETNA MESA 07/09 Released w/o Limitations [employer] [place] [employer] ([facility])(W arrior Op Med Cln Tm A Ad) [employer] ([facility])(Form Designer ecology) OUTPATIENT [id number] paragua placenj nt check [phone] LUISANA DEVLIN 09/07 Released w/o Limitations [address] [place] [address] [place] [facility] ([facility])(G ynecolo gy) [address] [place] [address] [place] [facility])( rior Op Med Cln Tm A Ad) TELE CONSULT [id number] Notes Entered by: ROZ GASTELUM 21 Sep 2014 1006 ------- ------- ------- ------- -- SX - multipl e sx/Elsn er-bold t/ * MANN COLON 09/[address] [place] [address] [place] [facility])(W arrior Op Med Cln Tm A Ad) [address] [place] [address])( rior Op Med Cln Tm A Ad) OUTPATIENT [id number] Ovarian Cyst, ER Visit LAMAR Donnelly 09/24 Released w/o Limitations [address] [place] [address])(W arrior Op Med Cln Tm A Ad) [address] [place] [address] [place] [facility])(Form Designer ecology) OUTPATIENT [id number] Possibl e Ovarion Cyst GUERRERO DWYER 09/24 Released w/o Limitations [address] [place] [address])(G ynecolo gy) [address] [place] [address])(Ob/ Form Designer) TELE CONSULT [id number] Notes Entered by: Aster DWYER 04 Oct 2014 1623 ------- ------- ------- ------- -- U/S results VERONICA JOHNS 10/[address] [place] [address] [place] [facility])(O b/Form Designer) [address] [place] [address] [place] [facility])( rior Op Med Cln Tm A Ad) OUTPATIENT [id number] pain in both feet -L is worse x 1wk [id number] TENZIN HOPE 12/11 Released w/o Limitations [address] [place] [address] [place] [facility]W arrior Op Med Cln Tm A Ad) [facility])(War rior Op Med Cln Tm A Ad) TELE CONSULT [id number] Notes Entered by: KANU ANGEL 29 Jan 2015 1253 ------- ------- ------- ------- -- Network results Neurolo gy 5 TENZIN HOPE 01/[address] [place] [address])(W arrior Op Med Cln Tm A Ad) [address] [place] [address])(Form Designer ecology) OUTPATIENT [id number] michell [facility] [phone] ALYSSA COLÓN 02/05 Released w/o Limitations [address] [place] [address])(Geoffrey razo gy) [address] [place] [address])(Form Designer ecology) TELE CONSULT [id number] Notes Entered by: ANDREWS COLÓN 12 Feb 2015 1635 ------- ------- ------- ------- -- results LAMAR ALVARADO 02/[address] [place] [address])(G kamalacodenis gy) [address] [place] [address])(War rior Op Med Cln Tm A Ad) TELE CONSULT [id number] Notes Entered by: KANU ANGEL 01 Mar 2015 0938 ------- ------- ------- ------- -- Network results Neurolo gy 5 TENZIN HOPE 03/[address] [place] [address])(W arrior Op Med Cln Tm A Ad) [address] [place] [address])(Form Designer ecology) TELE CONSULT [id number] Notes Entered by: JUAN ALBERTO GRIMM 10 Apr 2015 1049 ------- ------- ------- ------- -- Cecelia - Cody cruz/Layla donnelly/Jaymie 18.741. 4012 ANANDA WILLAMS 04/[address] [place] [address])(G ynecolo gy) [address] [place] [address])(Form Designer ecology) OUTPATIENT [id number] pelvic pain, vaginal bleedin g x 2weeks AMAYA BAEZ 04/11 Released w/o Limitations [address] [place] [address])(G ynecolo gy) [address] [place] [address])(War rior Op Med Cln Tm A Ad) TELE CONSULT [id number] Notes Entered by: SAILAJA DEVLIN 15 Apr 2015 0818 ------- ------- ------- ------- -- Lab Results / Gil limon / KEL THOMPSON 04/[address] [place] [address])(W arrior Op Med Cln Tm A Ad) [address] [place] [address])(War rior Op Med Cln Tm A Ad) TELE CONSULT [id number] Notes Entered by: ALESIA BARRAGAN 26 Apr 2015 1103 ------- ------- ------- ------- -- ER Follow- up/ Gil ne/ 741.401 2 MANN COLON 04/[address] [place] [address])(W arrior Op Med Cln Tm A Ad) [address] [place] [address])(Form Designer ecology) OUTPATIENT [id number] discuss tubalig ation [id number] GUERRERO DWYER 04/30 Released w/o Limitations [address] [place] [address])(G ynecolo gy) [address] [place] [address])(War rior Op Med Cln Tm A Ad) TELE CONSULT [id number] Notes Entered by: JEN BADILLO 23 May 2015 1046 ------- ------- ------- ------- -- Network Results -GASTRO ENTEROL OGY 5 TENZIN HOPE 05/[address] [place] [address])(W arrior Op Med Cln Tm A Ad) [address] [place] [address])(Form Designer ecology) TELE CONSULT [id number] Notes Entered by: GILSON THOMSON 04 Jun 2015 0811 ------- ------- ------- ------- -- Cancel for [address]- GILSON Osuna 06/[address] [place] [address])(G ynecolo gy) [address] [place] [address])(Form Designer ecology) TELE CONSULT [id number] Notes Entered by: Aster DWYER 05 Jun 2015 0859 ------- ------- ------- ------- -- U/S result VERONICA JOHNS 06/[address] [place] [address])(G ynecolo gy) [address] [place] [address])(War rior Op Med Cln Tm A Ad) OUTPATIENT [id number] Bad cough, headach e, nasal and chest congest ion [id number] PLACIDO MERAZ 06/05 Released w/o Limitations [address] [place] [address])(W arrior Op Med Cln Tm A Ad) [address] [place] [address])(War rior Op Med Cln Tm A Ad) TELE CONSULT [id number] Notes Entered by: KANU ANGEL 07 Jun 2015 1008 ------- ------- ------- ------- -- Network results Neurolo gy 5 TENZIN HOPE 06/[address] [place] [address])(W arrior Op Med Cln Tm A Ad) [address] [place] [address])(Fam jesus Med Tm B Non-AD BCC) TELE CONSULT [id number] Notes Entered by: MANN COLON 22 Aug 2015 0755 ------- ------- ------- ------- -- Referra l for physica l therapy needed MANN COLON 08/[address] [place] [address])(F amily Med Tm B Non-AD BCC) [address] [place] [address])(War rior Op Med Cln Tm A Ad) TELE CONSULT [id number] Notes Entered by: Delgado PIERCE 26 Aug 2015 1313 ------- ------- ------- ------- -- SX - Multipl e LorenzoX / Gil ne / JOE ASH 08/26 Referred for Appointment [address] [place] [address])(W arrior Op Med Cln Tm A Ad) [address] [place] [address])(War rior Op Med Cln Tm A Ad) TELE CONSULT [id number] Notes Entered by: KANU ANGEL 28 Aug 2015 1302 ------- ------- ------- ------- -- Network Results - Neurolo gy 6 DH TENZIN HOPE 08/[address] [place] [address])(W arrior Op Med Cln Tm A Ad) [address] [place] [address])(Form Designer ecology) OUTPATIENT [id number] Discuss Essure procedu ANI Medrano 09/23 Released w/o Limitations [address] [place] [address])(G ynecolo gy) [address] [place] [address])(War rior Op Med Cln Tm A Ad) OUTPATIENT [id number] L and R shoulde r pain x 2 wks 741.401 2 TENZIN HOPE 09/25 Released w/o Limitations [address] [place] [address])(W arrior Op Med Cln Tm A Ad) [address] [place] [address])(War rior Op Med Cln Tm A Ad) TELE CONSULT [id number] Notes Entered by: JUAN ALBERTO GRIMM 02 Oct 2015 1405 ------- ------- ------- ------- -- Sx - Multipl e sx/Layla donnelly/Jesica 41.4012 JOE ASH 10/01 Referred for Appointment [employer] [facility])(W arrior Op Med Cln Tm A Ad) [facility])(Form Designer ecology) TELE CONSULT [id number] Notes Entered by: DIMPLE MALIK 03 Oct 2015 0927 ------- ------- ------- ------- -- Pre-op call for Ess[facility] on 10 Oct 2015 FAMILIA THOMPSON 10/02 [facility])(G ynecolo gy) [facility])(War rior Op Med Cln Tm A Ad) OUTPATIENT [id number] cough, congest ion and ear pain TENZIN HOPE 10/02 Released w/o Limitations [facility])(W arrior Op Med Cln Tm A Ad) [facility])(Form Designer ecology) OUTPATIENT [id number] essure procedu re - [phone] ANI CHOI 10/09 Released w/o Limitations [facility])(G ynecolo gy) [address] [place] [address])(Form Designer ecology) TELE CONSULT [id number] Notes Entered by: DIMPLE MALIK 11 Oct 2015 0859 ------- ------- ------- ------- -- [facility] 2015 DIMPLE JOHNSON 10/10 Referred for Appointment [facility])(G ynecodenis gy) [facility])(Form Designer ecology) TELE CONSULT [id number] Notes Entered by: LEVON FLORES 15 Oct 2015 1032 ------- ------- ------- ------- -- Bleedin g after ESSURE procedu re on Oct 15. DIMPLE JOHNSON 10/14 Referred for Appointment [address] [place] [address])(Geoffrey razo gy) [address] [place] [address])(Med ication Refill Clinic) TELE CONSULT [id number] Notes Entered by: Delgado PIERCE 21 Oct 2015 1501 ------- ------- ------- ------- -- Med renewal / [facility] ne / ZULMA JAMISON 10/[address] [place] [address])(Michel bob on Refill Clinic) [address] [place] [address])(Med ication Refill Clinic) TELE CONSULT [id number] Notes Entered by: Vidal YA 17 Dec 2015 1144 ------- ------- ------- ------- -- Med bridge, Appt Jan 15 / [facility] ne / DENIZ FRANKLIN 12/[address] [place] [address])(Michel bob on Refill Clinic) [address] [place] [address])(Form Designer ecology) OUTPATIENT [id number] [facility] [place] s/p GIANNA Marino 01/06 Released w/o Limitations [address] [place] [address])(Geoffrey razo gy) [address] [place] [address])(War rior Op Med Cln Tm A Ad) OUTPATIENT [id number] Med Renewal s 741.401 2 TENZIN HOPE 01/07 Released w/o Limitations [address] [place] [address])(W arrior Op Med Cln Tm A Ad) [address] [place] [address])(Form Designer ecology) OUTPATIENT [id number] possibl e yeast infecti on - [phone] AMAYA BAEZ 03/04 Released w/o Limitations [address] [place] [address])(G ynecolo gy) 375[facility] [place]Form Designer ecology) TELE CONSULT [id number] Notes Entered by: KYLE BAEZ 16 Mar 2016 1032 ------- ------- ------- ------- -- Test results LAMAR ALVARADO 03/16[facility] [place] ([facility]G ynecolo gy) [address] [place] [address] [employer] [facility] [place]Sco tt INF [facility]) OUTPATIENT [id number] PATRICIA Serna pt 04/10 Released w/o Limitations [facility] [place] ([facility])(S cott [facility]) [address] [place] [address] [place] ([facility])(Form Designer ecology) OUTPATIENT [id number] repeat hsg - rt side - s/p KARI Pierce 04/14 Released w/o Limitations [facility] [place] [facility] [place])(G ynecolo gy) [address] [place] [address] [place] [facility] [place])(Form Designer ecology) OUTPATIENT [id number] PARAGAR D INSERTI ON - [phone] KARI VANEGAS 04/21 Released w/o Limitations [facility] [place]ELSEYB ([facility])(G ynecolo gy) [address] [place] [address] [place] ([facility])(Fam jesus Med Tm B Non-AD BCC) OUTPATIENT [id number] pressur e headach e - sore throat from drainag e - [phone] DEVIN GIBSON 06/08 Released w/o Limitations [facility] [place] ([facility])(F amily Med Tm B Non-AD BCC) [address] [place] [address] [employer] ([facility])(War rior Op Med Cln Tm A Ad) OUTPATIENT [id number] med renewal /referr MILLY Duong 07/14 Released w/o Limitations [address] [place] [address] [employer] [place] [employer] ([facility])(W arrior Op Med Cln Tm A Ad) [facility] [employer] ([facility])(War rior Op Med Cln Tm A Ad) OUTPATIENT [id number] sore throat, fever, body aches x2 days / ETNZIN HOPE 09/02 Released w/o Limitations [address] [place] [address] Group [facility])(W arrior Op Med Cln Tm A Ad) [address] [place] [address])(War rior Op Med Cln Tm A Ad) TELE CONSULT [id number] Notes Entered by: GLEN COTO 14 Sep 2016 0946 ------- ------- ------- ------- -- Network Results Radiolo gy 7 DS TENZIN HOPE A 09/[address] [place] [address] Group [facility])(W arrior Op Med Cln Tm A Ad) [address] [place] [address])(War rior Op Med Cln Tm A Ad) TELE CONSULT [id number] Notes Entered by: JEN BADILLO 14 Sep 2016 1211 ------- ------- ------- ------- -- Network Results -GASTRO ENTEROL OGY 08/28/16 SDG TENZIN HPOE 09/[address] [place] [address] Group [facility])(W arrior Op Med Cln Tm A Ad) [address] [place] [address])(War rior Op Med Cln Tm A Ad) OUTPATIENT [id number] Knot near R Collar bone [id number] TENZIN HOPE Delgado 10/23 Released w/o Limitations [address] [place] [address])(W arrior Op Med Cln Tm A Ad) [facility] Medical Group [facility])(War rior Op Med Cln Tm A Ad) OUTPATIENT [id number] dizzy, headach es, ear aches, [phone] MILLY BEGUM 12/14 Released w/o Limitations [address] [place] [address] Group [facility])(W arrior Op Med Cln Tm A Ad) [address] [place] [address])(War rior Op Med Cln Tm A Ad) TELE CONSULT [id number] Notes Entered by: TONY FOFANA 06 Jan 2017 1002 ------- ------- ------- ------- -- Network results Gastroe nterolo gy 12/31/16 MMTENZIN RUIZ 01/[address] [place] [address])(W arrior Op Med Cln Tm A Ad) [address] [place] [address])(Med ication Refill Clinic) TELE CONSULT [id number] Notes Entered by: CRISTI CAREY 12 Jan 2017 1300 ------- ------- ------- ------- -- Med renewal /Kathy gnaster/[phone] .741.40 12/MILLY Everett 01/[address] [place] [address])(Michel bob on Refill Clinic) [address] [place] [address])(War rior Op Med Cln Tm A Ad) OUTPATIENT [id number] Dizzine ss, 741.401 2 BLESSINGCA LCARONEPLACIDO. 02/08 Released w/o Limitations [address] [place] [address])(W arrior Op Med Cln Tm A Ad) [address] [place] [address])(War rior Op Med Cln Tm A Ad) TELE CONSULT [id number] Notes Entered by: JUAN ALBERTO GRIMM 25 Feb 2017 1202 ------- ------- ------- ------- -- Sx - Dizzine ss, R ear pain/Ch sharifagne / DARIEN, RAVIN J 02/[address] [place] [address])(W arrior Op Med Cln Tm A Ad) [address] [place] [address])(Fam jesus Med Tm B Non-AD BCC) TELE CONSULT [id number] Notes Entered by: CARLOS MANUEL CORTES 02 Mar 2017 1615 ------- ------- ------- ------- -- Network Results Emergen Room 7 BG PLACIDO MERAZMo 03/[address] [place] [address] [place] [facility])(F amily Med Tm B Non-AD BCC) [address] [place] [address] [place] [facility])(Med ication Refill Clinic) TELE CONSULT [id number] Notes Entered by: HORTENCIA OLGUIN RET 15 Apr 2017 1145 ------- ------- ------- ------- -- Rx Renewal /Kathy schuler/618 .741.40 12 [facility] RADHAAsterNHANA Delgado 04/[address] [place] [address] [place] [facility])(M edicati on Refill Clinic) [address] [place] [address])(War rior Op Med Cln Tm A Ad) OUTPATIENT [id number] ear problem s 2 months TENZIN HOPE 04/19 Released w/o Limitations [address] [place] [address])(W arrior Op Med Cln Tm A Ad) [address] [place] [address])(War rior Op Med Cln Tm A Ad) TELE CONSULT [id number] Notes Entered by: HORTENCIA OLGUIN RET 29 Jun 2017 0726 ------- ------- ------- ------- -- Sx: Thea/C miguel rodarte/ [facility] DARIEN, RAVIN J 06/[address] [place] [address])(W arrior Op Med Cln Tm A Ad) [address] [place] [address] [place] [facility])(War rior Op Med Cln Tm A Ad) OUTPATIENT [id number] sore throat, low grade temp 99-100, sinus congest ion, achines s TENZIN HOPE 06/29 Released w/o Limitations [address] [place] [address])(W arrior Op Med Cln Tm A Ad) [address] [place] [address])(War rior Op Med Cln Tm A Ad) TELE CONSULT [id number] Notes Entered by: ELISABET JOHNSON 02 Jul 2017 1226 ------- ------- ------- ------- -- Positiv e Strep Throat Culture TENZIN HOPE 07/[address] [place] [address])(W arrior Op Med Cln Tm A Ad) [address] [place] [address])(Form Designer ecology) OUTPATIENT [id number] bloody dischar ge x 1 week - [phone] AMAYA BAEZ 07/20 Released w/o Limitations [address] [place] [address])(G ynecolo gy) [address] [place] [address])(Form Designer ecology) TELE CONSULT [id number] Notes Entered by: KYLE BAEZ 10 Aug 2017 1317 ------- ------- ------- ------- -- Test results VERONICA JOHNS 08/[address] [place] [address])(G ynecolo gy) [address] [place] [address])(Fam jesus Med Tm B Non-AD BCC) OUTPATIENT [id number] [facility] ER F/U-SX Persist Ringing L ear/cou gh/sirisha estion [id number] KOBE SELF 09/08 Released w/o Limitations [address] [place] [address])(F amily Med Tm B Non-AD BCC) [address] [place] [address])(Med ication Refill Clinic) TELE CONSULT [id number] Notes Entered by: JUAN ALBERTO GRIMM 10 Sep 2017 0839 ------- ------- ------- ------- -- Med Renewal /Kathy schuler/618 .741.40 12 DARIEN, RAVIN J 09/[address] [place] [address])(Michel bob on Refill Clinic) [address] [place] [address])(War rior Op Med Cln Tm A Ad) TELE CONSULT [id number] Notes Entered by: HORTENCIA OLGUIN RET 13 Sep 2017 1022 ------- ------- ------- ------- -- SX: Left Ear pain/Ch ampagne / [facility] RAVIN LEDEZMA 09/[address] [place] [address])(W arrior Op Med Cln Tm A Ad) [address] [place] [address])(War rior Op Med Cln Tm A Ad) TELE CONSULT [id number] Notes Entered by: ALEJO BERNAL 23 Sep 2017 1159 ------- ------- ------- ------- -- Network Results Emergen Room 09/02/17 CANDI CAROLINA 09/[address] [place] [address])(W arrior Op Med Cln Tm A Ad) [address] [place] [address])(Form Designer ecology) OUTPATIENT [id number] discuss btl/rem essure coils - [phone] KARI VANEGAS 10/05 Released w/o Limitations [address] [place] [address])(G ynecolo gy) [address] [place] [address])(Ob/ Form Designer) TELE CONSULT [id number] YONG FLORES 10/[address] [place] [address])(O b/Form Designer) [address] [place] [address])(War rior Op Med Cln Tm A Ad) TELE CONSULT [id number] Notes Entered by: Vidal YEUNG 12 Oct 2017 1047 ------- ------- ------- ------- -- Network results Dereke lisaerodenis gy 018 TENZIN MIDDLETON 10/[address] [place] [address])(W arrior Op Med Cln Tm A Ad) [address] [place] [address])(Form Designer ecology) TELE CONSULT [id number] Notes Entered by: Dilma ALVAREZ 12 Oct 2017 1334 ------- ------- ------- ------- -- Surgery reminde r 13 OCT 2017 ARLETTENICCI GRUBBS 10/[address] [place] [address])(G ybraxtoncodenis gy) [address] [place] [address])(Form Designer ecology) TELE CONSULT [id number] Notes Entered by: SUSAN CONTRERAS 15 Oct 2017 1356 ------- ------- ------- ------- -- Scanned carlotta gy report into KARI STAHL 10/[address] [place] [address])(G ybraxtoncodenis gy) [address] [place] [address])(Med ication Refill Clinic) TELE CONSULT [id number] Notes Entered by: SAILAJA DEVLIN 21 Oct 2017 1004 ------- ------- ------- ------- -- Med Renewal / Ronaldag ne / - sgj WICHO RUCKER 10/[address] [place] [address])(Michel bob on Refill Clinic) [address] [place] [address])(War rior Op Med Cln Tm A Ad) TELE CONSULT [id number] Notes Entered by: KARTHIK SANDOVAL 22 Oct 2017 1018 ------- ------- ------- ------- -- Sx: Cough, congest ion - [facility] ne - - tsg* URI SARABIA 10/22 Other Not Elsewhere Classified [address] [place] [address])(W arrior Op Med Cln Tm A Ad) [address] [place] [address])(Form Designer ecology) OUTPATIENT [id number] post op - [phone] KARI VANEGAS 10/26 Released w/o Limitations [address] [place] [address])(G ybraxtoncodenis gy) [address] [place] [address])(War rior Op Med Cln Tm A Ad) TELE CONSULT [id number] Notes Entered by: JOSE BURRIS 01 Nov 2017 1036 ------- ------- ------- ------- -- Med refill / WICHO Molina 11/[address] [place] [address])(W arrior Op Med Cln Tm A Ad) [address] [place] [address])(War rior Op Med Cln Tm A Ad) OUTPATIENT [id number] Feels tired/r un down/we ight gain/giraldo ir/skin very dry [id number] TENZIN HOPE 12/13 Released w/o Limitations [address] [place] [address])(W arrior Op Med Cln Tm A Ad) [address] [place] [address])(War rior Op Med Cln Tm A Ad) TELE CONSULT [id number] Notes Entered by: ELISABET JOHNSON 14 Dec 2017 1050 ------- ------- ------- ------- -- Lab results DARIEN, RAVIN J 12/[address] [place] [address])(W arrior Op Med Cln Tm A Ad) [address] [place] [address])(War rior Op Med Cln Tm A Ad) OUTPATIENT [id number] F/U for low Vitamin D - still feeling tired - decline d [employer] [id number] ANTONIO DIGGS 03/02 Released w/o Limitations [address] [place] [address])(W arrior Op Med Cln Tm A Ad) [address] [place] [address])(Form Designer ecology) TELE CONSULT [id number] Notes Entered by: SUSAN CONTRERAS 05 Apr 2018 0733 ------- ------- ------- ------- -- Possibl e yeast infecti on and herpes outdavida NICCI Seo 04/05 Referred for Appointment [address] [place] [address])(Geoffrey arenas) [address] [place] [address])(War rior Op Med Cln Tm A Ad) TELE CONSULT [id number] Notes Entered by: LUCY PTAEL 10 May 2018 1432 ------- ------- ------- ------- -- Med Renewal Request / Minerva / - stevan NEILRAMIREZWICHO Rodarte Delgado 05/10 Referred for Appointment [address] [place] [address])(W arrior Op Med Cln Tm A Ad) [address] [place] [address])(Form Designer ecology) OUTPATIENT [id number] dISCUSS treatme nt options for herpes [place] [id number] (pt request ) KARI VANEGAS 05/24 Released w/o Limitations [address] [place] [address])(G ynecolo gy) [address] [place] [address])(War rior Op Med Cln Tm A Ad) TELE CONSULT [id number] Notes Entered by: JUAN ALBERTO GRIMM 15 Aug 2018 1042 ------- ------- ------- ------- -- 2nd opinion Referra l Request /Yessy rodarte/ GEOVANI JARVIS 08/15 Other Not Elsewhere Classified [address] [place] [address])(W arrior Op Med Cln Tm A Ad) [address] [place] [address])(Form Designer ecology) OUTPATIENT [id number] 0 3 month f/u medicat ion - [phone] KARI VANEGAS 09/12 Released w/o Limitations [address] [place] [address])(G ynecolo gy) [address] [place] [address])(War rior Op Med Cln Tm A Ad) OUTPATIENT [id number] 1 Sinus Drainag e and Pressur e, 741.401 2 ANTONIO DIGGS 11/16 Released w/o Limitations [address] [place] [address])(W arrior Op Med Cln Tm A Ad) [address] [place] [address])(War rior Op Med Cln Tm A Ad) TELE CONSULT [id number] Notes Entered by: PRAKASH BRICENO 16 Nov 2018 1111 ------- ------- ------- ------- -- Pt needs written prescri ption for nathaly serrato told her they are out of it MAUDE MORA 11/16 Medication Refill Forwarded [facility] Medical Group [place] ([facility]W arrior Op Med Cln Tm A Ad) Procedures Combined list of: 1) Procedures from Department of Veterans Affairs facilities going back up to thelast 18 months, not all VA non-surgical procedures are included; 2) All procedures from the Department of Defense facilities. Procedure Procedure Type Code Date Perfomer Comments Sourc e No data available for this section [facility] TELE ASSESS & MGT SRV PROV QUAL NONPHYS HLTH CARE PRO TO EST PAT,PARENT,GUARD NOT ORIG REL ASSESS & MGT SRV PROV W/IN PREV 7 DAYS NOR LEAD ASSESS & MGT SRV/PX W/IN NXT 24 HR/SOON APT;5-10 MIN MED DIS 11/16 DoD TELE ASSESS & MGT SRV PROV QUAL NONPHYS HLTH CARE PRO TO EST PAT,PARENT,GUARD NOT ORIG REL ASSESS & MGT SRV PROV W/IN PREV 7 DAYS NOR LEAD ASSESS & MGT SRV/PX W/IN NXT 24 HR/SOON APT;5-10 MIN MED DIS 08/15 DoD DISEASE MANAGEMENT PROGRAM, FOLLOW-UP/REASSESSM ENT 05/10 DoD TELE ASSESS & MGT SRV PROV QUAL NONPHYS HLTH CARE PRO TO EST PAT,PARENT,GUARD NOT ORIG REL ASSESS & MGT SRV PROV W/IN PREV 7 DAYS NOR LEAD ASSESS & MGT SRV/PX W/IN NXT 24 HR/SOON APT;5-10 MIN MED DIS 04/05 DoD DISEASE MANAGEMENT PROGRAM, FOLLOW-UP/REASSESSM ENT 11/01 DoD TELE ASSESS & MGT SRV PROV QUAL NONPHYS HLTH CARE PRO TO EST PAT,PARENT,GUARD NOT ORIG REL ASSESS & MGT SRV PROV W/IN PREV 7 DAYS NOR LEAD ASSESS & MGT SRV/PX W/IN NXT 24 HR/SOON APT;5-10 MIN MED DIS 10/22 DoD DISEASE MANAGEMENT PROGRAM, FOLLOW-UP/REASSESSM ENT 10/21 DoD REMOVAL OF INTRAUTERINE DEVICE (IUD) 10/13 DoD TELE ASSESS & MGT SRV PROV QUAL NONPHYS HLTH CARE PRO TO EST PAT,PARENT,GUARD NOT ORIG REL ASSESS & MGT SRV PROV W/IN PREV 7 DAYS NOR LEAD ASSESS & MGT SRV/PX W/IN NXT 24 HR/SOON APT;5-10 MIN MED DIS 10/12 DoD TELE ASSESS & MGT SRV PROV QUAL NONPHYS HLTH CARE PRO TO EST PAT,PARENT,GUARD NOT ORIG REL ASSESS & MGT SRV PROV W/IN PREV 7 DAYS NOR LEAD ASSESS & MGT SRV/PX W/IN NXT 24 HR/SOON APT;5-10 MIN MED DIS 09/13 DoD TELE ASSESS & MGT SRV PROV QUAL NONPHYS HLTH CARE PRO TO EST PAT,PARENT,GUARD NOT ORIG REL ASSESS & MGT SRV PROV W/IN PREV 7 DAYS NOR LEAD ASSESS & MGT SRV/PX W/IN NXT 24 HR/SOON APT;5-10 MIN MED DIS 09/10 DoD BRIEF EMOTIONAL/BEHAVIORA L ASSESSMENT (EG, DEPRESSION INVENTORY, ATTENTION-DEFICIT/H YPERACTIVITY DISORDER [ADHD] SCALE), WITH SCORING AND DOCUMENTATION, PER STANDARDIZED INSTRUMENT 07/20 DoD TELE ASSESS & MGT SRV PROV QUAL NONPHYS HLTH CARE PRO TO EST PAT,PARENT,GUARD NOT ORIG REL ASSESS & MGT SRV PROV W/IN PREV 7 DAYS NOR LEAD ASSESS & MGT SRV/PX W/IN NXT 24 HR/SOON APT;5-10 MIN MED DIS 06/29 DoD BRIEF EMOTIONAL/BEHAVIORA L ASSESSMENT (EG, DEPRESSION INVENTORY, ATTENTION-DEFICIT/H YPERACTIVITY DISORDER [ADHD] SCALE), WITH SCORING AND DOCUMENTATION, PER STANDARDIZED INSTRUMENT 04/20 DoD DISEASE MANAGEMENT PROGRAM, FOLLOW-UP/REASSESSM ENT 04/15 DoD TELE ASSESS & MGT SRV PROV QUAL NONPHYS HLTH CARE PRO TO EST PAT,PARENT,GUARD NOT ORIG REL ASSESS & MGT SRV PROV W/IN PREV 7 DAYS NOR LEAD ASSESS & MGT SRV/PX W/IN NXT 24 HR/SOON APT;5-10 MIN MED DIS 02/25 DoD PSYCHIATRIC EVALUATION OF HOSPITAL RECORDS, OTHER PSYCHIATRIC REPORTS, PSYCHOMETRIC AND/OR PROJECTIVE TESTS, AND OTHER ACCUMULATED DATA FOR MEDICALDIAGNOSTIC PURPOSES 09/22 [facility] INSERTION OF INTRAUTERINE DEVICE (IUD) 04/21 DoD CATHETERIZATION AND INTRODUCTION OF SALINE OR CONTRAST MATERIAL FOR SALINE INFUSION SONOHYSTEROGRAPHY (SIS) OR HYSTEROSALPINGOGRAP HY 04/14 [facility] SCREENING PAPANICOLAOU SMEAR; OBTAINING, PREPARING AND CONVEYANCE OF CERVICAL OR VAGINAL SMEAR TO LABORATORY 03/04 DoD CATHETERIZATION AND INTRODUCTION OF SALINE OR CONTRAST MATERIAL FOR SALINE INFUSION SONOHYSTEROGRAPHY (SIS) OR HYSTEROSALPINGOGRAP HY 01/06 [facility] PHARMACOLOGIC MANAGEMENT, INCLUDING PRESCRIPTION AND REVIEW OF MEDICATION, WHEN PERFORMED WITH PSYCHOTHERAPY SERVICES (LIST SEPARATELY IN ADDITION TO THE CODE FOR PRIMARY PROCEDURE) 11/26 DoD TELE ASSESS & MGT SRV PROV QUAL NONPHYS HLTH CARE PRO TO EST PAT,PARENT,GUARD NOT ORIG REL ASSESS & MGT SRV PROV W/IN PREV 7 DAYS NOR LEAD ASSESS & MGT SRV/PX W/IN NXT 24 HR/SOON APT;5-10 MIN MED DIS 10/14 DoD TELE ASSESS & MGT SRV PROV QUAL NONPHYS HLTH CARE PRO TO EST PAT,PARENT,GUARD NOT ORIG REL ASSESS & MGT SRV PROV W/IN PREV 7 DAYS NOR LEAD ASSESS & MGT SRV/PX W/IN NXT 24 HR/SOON APT;5-10 MIN MED DIS 10/10 DoD HYSTEROSCOPY, SURGICAL; WITH BILATERAL FALLOPIAN TUBE CANNULATION TO INDUCE OCCLUSION BY PLACEMENT OF PERMANENT IMPLANTS 10/09 DoD TELE ASSESS & MGT SRV PROV QUAL NONPHYS HLTH CARE PRO TO EST PAT,PARENT,GUARD NOT ORIG REL ASSESS & MGT SRV PROV W/IN PREV 7 DAYS NOR LEAD ASSESS & MGT SRV/PX W/IN NXT 24 HR/SOON APT;5-10 MIN MED DIS 10/02 DoD TELE ASSESS & MGT SRV PROV QUAL NONPHYS HLTH CARE PRO TO EST PAT,PARENT,GUARD NOT ORIG REL ASSESS & MGT SRV PROV W/IN PREV 7 DAYS NOR LEAD ASSESS & MGT SRV/PX W/IN NXT 24 HR/SOON APT;5-10 MIN MED DIS 10/01 DoD PSYCHOTHERAPY, 60 MINUTES WITH PATIENT 09/13 DoD TELE ASSESS & MGT SRV PROV QUAL NONPHYS HLTH CARE PRO TO EST PAT,PARENT,GUARD NOT ORIG REL ASSESS & MGT SRV PROV W/IN PREV 7 DAYS NOR LEAD ASSESS & MGT SRV/PX W/IN NXT 24 HR/SOON APT;5-10 MIN MED DIS 08/26 DoD TELE ASSESS & MGT SRV PROV QUAL NONPHYS HLTH CARE PRO TO EST PAT,PARENT,GUARD NOT ORIG REL ASSESS & MGT SRV PROV W/IN PREV 7 DAYS NOR LEAD ASSESS & MGT SRV/PX W/IN NXT 24 HR/SOON APT;5-10 MIN MED DIS 08/22 DoD PSYCHOTHERAPY, 30 MINUTES WITH PATIENT WHEN PERFORMED WITH AN EVALUATION AND MANAGEMENT SERVICE (LIST SEPARATELY IN ADDITION TO THE CODE FOR PRIMARY PROCEDURE) 06/17 DoD PSYCHOTHERAPY, 45 MINUTES WITH PATIENT WHEN PERFORMED WITH AN EVALUATION AND MANAGEMENT SERVICE (LIST SEPARATELY IN ADDITION TO THE CODE FOR PRIMARY PROCEDURE) 05/08 DoD TELE ASSESS & MGT SRV PROV QUAL NONPHYS HLTH CARE PRO TO EST PAT,PARENT,GUARD NOT ORIG REL ASSESS & MGT SRV PROV W/IN PREV 7 DAYS NOR LEAD ASSESS & MGT SRV/PX W/IN NXT 24 HR/SOON APT;5-10 MIN MED DIS 04/26 DoD SMEAR, PRIMARY SOURCE WITH INTERPRETATION; WET MOUNT FOR INFECTIOUS AGENTS (EG, SALINE, HUNTER INK, FEDERICO PREPS) 04/11 DoD TELE ASSESS & MGT SRV PROV QUAL NONPHYS HLTH CARE PRO TO EST PAT,PARENT,GUARD NOT ORIG REL ASSESS & MGT SRV PROV W/IN PREV 7 DAYS NOR LEAD ASSESS & MGT SRV/PX W/IN NXT 24 HR/SOON APT;5-10 MIN MED DIS 04/10 DoD PSYCHOTHERAPY, 45 MINUTES WITH PATIENT WHEN PERFORMED WITH AN EVALUATION AND MANAGEMENT SERVICE (LIST SEPARATELY IN ADDITION TO THE CODE FOR PRIMARY PROCEDURE) 04/10 DoD PSYCHOTHERAPY, 45 MINUTES WITH PATIENT WHEN PERFORMED WITH AN EVALUATION AND MANAGEMENT SERVICE (LIST SEPARATELY IN ADDITION TO THE CODE FOR PRIMARY PROCEDURE) 02/15 DoD PSYCHOTHERAPY, 45 MINUTES WITH PATIENT WHEN PERFORMED WITH AN EVALUATION AND MANAGEMENT SERVICE (LIST SEPARATELY IN ADDITION TO THE CODE FOR PRIMARY PROCEDURE) 12/28 DoD PSYCHOTHERAPY, 45 MINUTES WITH PATIENT WHEN PERFORMED WITH AN EVALUATION AND MANAGEMENT SERVICE (LIST SEPARATELY IN ADDITION TO THE CODE FOR PRIMARY PROCEDURE) 11/14 DoD PSYCHOTHERAPY, 45 MINUTES WITH PATIENT WHEN PERFORMED WITH AN EVALUATION AND MANAGEMENT SERVICE (LIST SEPARATELY IN ADDITION TO THE CODE FOR PRIMARY PROCEDURE) 10/16 DoD TELE ASSESS & MGT SRV PROV QUAL NONPHYS HLTH CARE PRO TO EST PAT,PARENT,GUARD NOT ORIG REL ASSESS & MGT SRV PROV W/IN PREV 7 DAYS NOR LEAD ASSESS & MGT SRV/PX W/IN NXT 24 HR/SOON APT;5-10 MIN MED DIS 09/21 DoD PSYCHOTHERAPY, 45 MINUTES WITH PATIENT WHEN PERFORMED WITH AN EVALUATION AND MANAGEMENT SERVICE (LIST SEPARATELY IN ADDITION TO THE CODE FOR PRIMARY PROCEDURE) 09/04 DoD PSYCHOTHERAPY, 45 MINUTES WITH PATIENT WHEN PERFORMED WITH AN EVALUATION AND MANAGEMENT SERVICE (LIST SEPARATELY IN ADDITION TO THE CODE FOR PRIMARY PROCEDURE) 07/24 DoD PSYCHOTHERAPY, 45 MINUTES WITH PATIENT 06/19 DoD URINE TEST, BY VISUAL COLOR COMPARISON METHODS 06/18 DoD PSYCHIATRIC DIAGNOSTIC EVALUATION WITH MEDICAL SERVICES 06/06 DoD SMEAR, PRIMARY SOURCE WITH INTERPRETATION; WET MOUNT FOR INFECTIOUS AGENTS (EG, SALINE, HUNTER INK, FEDERICO PREPS) 06/04 DoD PSYCHOTHERAPY, 45 MINUTES WITH PATIENT 06/01 DoD PSYCHOTHERAPY, 45 MINUTES WITH PATIENT 05/15 DoD PSYCHIATRIC DIAGNOSTIC EVALUATION WITH MEDICAL SERVICES 04/26 DoD PSYCHOTHERAPY, 45 MINUTES WITH PATIENT 04/20 DoD INTERACTIVE COMPLEXITY (LIST SEPARATELY IN ADDITION TO THE CODE FOR PRIMARY PROCEDURE) 04/06 DoD PSYCHOTHERAPY, 60 MINUTES WITH PATIENT 03/16 DoD PSYCHOTHERAPY, 60 MINUTES WITH PATIENT WHEN PERFORMED WITH AN EVALUATION AND MANAGEMENT SERVICE (LIST SEPARATELY IN ADDITION TO THE CODE FOR PRIMARY PROCEDURE) 03/08 DoD PSYCHOTHERAPY, 60 MINUTES WITH PATIENT 03/01 DoD DIAPHRAGM OR CERVICAL CAP FITTING WITH INSTRUCTIONS 02/20 DoD PSYCHOTHERAPY, 60 MINUTES WITH PATIENT 02/15 DoD INTERACTIVE COMPLEXITY (LIST SEPARATELY IN ADDITION TO THE CODE FOR PRIMARY PROCEDURE) 02/06 DoD PSYCHOTHERAPY, 45 MINUTES WITH PATIENT 01/29 DoD PSYCHOTHERAPY, 60 MINUTES WITH PATIENT WHEN PERFORMED WITH AN EVALUATION AND MANAGEMENT SERVICE (LIST SEPARATELY IN ADDITION TO THE CODE FOR PRIMARY PROCEDURE) 01/04 DoD INTERACTIVE COMPLEXITY (LIST SEPARATELY IN ADDITION TO THE CODE FOR PRIMARY PROCEDURE) 12/19 DoD PSYCHOTHERAPY, 60 MINUTES WITH PATIENT 12/01 DoD SUBSEQ CARE VISIT () [EXCLS:PATIENTS WHO ARE SEEN FOR A CONDITION UNREL TO / CARE (EG,AN UP RESPIR INFECT;PATIENTS SEEN FOR CONSULTATION ONLY,NOT FOR CONT CARE)] 11/27 DoD INTERACTIVE COMPLEXITY (LIST SEPARATELY IN ADDITION TO THE CODE FOR PRIMARY PROCEDURE) 11/20 DoD PSYCHOTHERAPY, 60 MINUTES WITH PATIENT 11/17 DoD SUBSEQ CARE VISIT () [EXCLS:PATIENTS WHO ARE SEEN FOR A CONDITION UNREL TO / CARE (EG,AN UP RESPIR INFECT;PATIENTS SEEN FOR CONSULTATION ONLY,NOT FOR CONT CARE)] 11/13 DoD TELE ASSESS & MGT SRV PROV QUAL NONPHYS HLTH CARE PRO TO EST PAT,PARENT,GUARD NOT ORIG REL ASSESS & MGT SRV PROV W/IN PREV 7 DAYS NOR LEAD ASSESS & MGT SRV/PX W/IN NXT 24 HR/SOON APT;5-10 MIN MED DIS 11/08 DoD INTERACTIVE COMPLEXITY (LIST SEPARATELY IN ADDITION TO THE CODE FOR PRIMARY PROCEDURE) 11/06 DoD MEDICAL NUTRITION THERAPY; INITIAL ASSESSMENT AND INTERVENTION, INDIVIDUAL, [id number] WITH THE PATIENT, EACH 15 MINUTES 11/02 DoD INTERACTIVE COMPLEXITY (LIST SEPARATELY IN ADDITION TO THE CODE FOR PRIMARY PROCEDURE) 10/30 DoD TELE ASSESS & MGT SRV PROV QUAL NONPHYS HLTH CARE PRO TO EST PAT,PARENT,GUARD NOT ORIG REL ASSESS & MGT SRV PROV W/IN PREV 7 DAYS NOR LEAD ASSESS & MGT SRV/PX W/IN NXT 24 HR/SOON APT;5-10 MIN MED DIS 10/30 DoD TELE ASSESS & MGT SRV PROV QUAL NONPHYS HLTH CARE PRO TO EST PAT,PARENT,GUARD NOT ORIG REL ASSESS & MGT SRV PROV W/IN PREV 7 DAYS NOR LEAD ASSESS & MGT SRV/PX W/IN NXT 24 HR/SOON APT;5-10 MIN MED DIS 10/27 DoD SUBSEQ CARE VISIT () [EXCLS:PATIENTS WHO ARE SEEN FOR A CONDITION UNREL TO / CARE (EG,AN UP RESPIR INFECT;PATIENTS SEEN FOR CONSULTATION ONLY,NOT FOR CONT CARE)] 10/26 DoD SUBSEQ CARE VISIT () [EXCLS:PATIENTS WHO ARE SEEN FOR A CONDITION UNREL TO / CARE (EG,AN UP RESPIR INFECT;PATIENTS SEEN FOR CONSULTATION ONLY,NOT FOR CONT CARE)] 10/19 DoD PSYCHOTHERAPY, 60 MINUTES WITH PATIENT 10/17 [facility] SUBSEQ CARE VISIT () [EXCLS:PATIENTS WHO ARE SEEN FOR A CONDITION UNREL TO / CARE (EG,AN UP RESPIR INFECT;PATIENTS SEEN FOR CONSULTATION ONLY,NOT FOR CONT CARE)] 10/13 [facility] SUBSEQ CARE VISIT () [EXCLS:PATIENTS WHO ARE SEEN FOR A CONDITION UNREL TO / CARE (EG,AN UP RESPIR INFECT;PATIENTS SEEN FOR CONSULTATION ONLY,NOT FOR CONT CARE)] 10/05 [facility] FAMILY PSYCHOTHERAPY (CONJOINT PSYCHOTHERAPY) (WITH PATIENT PRESENT), 50 MINUTES 10/04 DoD PSYCHOTHERAPY, 60 MINUTES WITH PATIENT 09/28 [facility] SUBSEQ CARE VISIT () [EXCLS:PATIENTS WHO ARE SEEN FOR A CONDITION UNREL TO / CARE (EG,AN UP RESPIR INFECT;PATIENTS SEEN FOR CONSULTATION ONLY,NOT FOR CONT CARE)] 09/25 [facility] SUBSEQ CARE VISIT () [EXCLS:PATIENTS WHO ARE SEEN FOR A CONDITION UNREL TO / CARE (EG,AN UP RESPIR INFECT;PATIENTS SEEN FOR CONSULTATION ONLY,NOT FOR CONT CARE)] 09/21 [facility] PSYCHOTHERAPY, 60 MINUTES WITH PATIENT 09/21 [facility] SUBSEQ CARE VISIT () [EXCLS:PATIENTS WHO ARE SEEN FOR A CONDITION UNREL TO / CARE (EG,AN UP RESPIR INFECT;PATIENTS SEEN FOR CONSULTATION ONLY,NOT FOR CONT CARE)] 09/15 [facility] PSYCHIATRIC DIAGNOSTIC EVALUATION 09/14 [facility] SUBSEQ CARE VISIT () [EXCLS:PATIENTS WHO ARE SEEN FOR A CONDITION UNREL TO / CARE (EG,AN UP RESPIR INFECT;PATIENTS SEEN FOR CONSULTATION ONLY,NOT FOR CONT CARE)] 09/08 [facility] SUBSEQ CARE VISIT () [EXCLS:PATIENTS WHO ARE SEEN FOR A CONDITION UNREL TO / CARE (EG,AN UP RESPIR INFECT;PATIENTS SEEN FOR CONSULTATION ONLY,NOT FOR CONT CARE)] 08/28 [facility] SUBSEQ CARE VISIT () [EXCLS:PATIENTS WHO ARE SEEN FOR A CONDITION UNREL TO / CARE (EG,AN UP RESPIR INFECT;PATIENTS SEEN FOR CONSULTATION ONLY,NOT FOR CONT CARE)] 08/17 [facility] SUBSEQ CARE VISIT () [EXCLS:PATIENTS WHO ARE SEEN FOR A CONDITION UNREL TO / CARE (EG,AN UP RESPIR INFECT;PATIENTS SEEN FOR CONSULTATION ONLY,NOT FOR CONT CARE)] 07/18 DoD SUBSEQ CARE VISIT () [EXCLS:PATIENTS WHO ARE SEEN FOR A CONDITION UNREL TO / CARE (EG,AN UP RESPIR INFECT;PATIENTS SEEN FOR CONSULTATION ONLY,NOT FOR CONT CARE)] 07/06 DoD ULTRASOUND, UTERUS, REAL TIME WITH IMAGE DOCUMENTATION, LIMITED (EG, HEART BEAT, PLACENTAL LOCATION, POSITION AND/OR QUALITATIVE AMNIOTIC FLUID VOLUME), 1 OR MORE FETUSES 05/25 DoD ULTRASOUND, UTERUS, REAL TIME WITH IMAGE DOCUMENTATION,TRANS VAGINAL 05/05 DoD ULTRASOUND, UTERUS, REAL TIME WITH IMAGE DOCUMENTATION,TRANS VAGINAL 05/01 DoD TELE ASSESS & MGT SRV PROV QUAL NONPHYS HLTH CARE PRO TO EST PAT,PARENT,GUARD NOT ORIG REL ASSESS & MGT SRV PROV W/IN PREV 7 DAYS NOR LEAD ASSESS & MGT SRV/PX W/IN NXT 24 HR/SOON APT;5-10 MIN MED DIS 04/28 DoD TELE ASSESS & MGT SRV PROV QUAL NONPHYS HLTH CARE PRO TO EST PAT,PARENT,GUARD NOT ORIG REL ASSESS & MGT SRV PROV W/IN PREV 7 DAYS NOR LEAD ASSESS & MGT SRV/PX W/IN NXT 24 HR/SOON APT;5-10 MIN MED DIS 03/09 DoD TELE ASSESS & MGT SRV PROV QUAL NONPHYS HLTH CARE PRO TO EST PAT,PARENT,GUARD NOT ORIG REL ASSESS & MGT SRV PROV W/IN PREV 7 DAYS NOR LEAD ASSESS & MGT SRV/PX W/IN NXT 24 HR/SOON APT;5-10 MIN MED DIS 03/03 DoD ELECTROCARDIOGRAM, ROUTINE ECG WITH AT LEAST 12 LEADS; WITH INTERPRETATION AND REPORT 02/21 DoD PSYCHIATRIC EVALUATION OF HOSPITAL RECORDS, OTHER PSYCHIATRIC REPORTS, PSYCHOMETRIC AND/OR PROJECTIVE TESTS, AND OTHER ACCUMULATED DATA FOR MEDICALDIAGNOSTIC PURPOSES 11/14 DoD TELE ASSESS & MGT SRV PROV QUAL NONPHYS HLTH CARE PRO TO EST PAT,PARENT,GUARD NOT ORIG REL ASSESS & MGT SRV PROV W/IN PREV 7 DAYS NOR LEAD ASSESS & MGT SRV/PX W/IN NXT 24H/SOON APT; 11-20 MIN MED DIS 06/22 DoD INDIVIDUAL PSYCHOTHERAPY, INSIGHT ORIENTED, BEHAVIOR MODIFYING AND/OR SUPPORTIVE, IN AN OFFICE OR OUTPATIENT FACILITY, APPROXIMATELY 20 TO 30 MINUTES [id number] WITH THE PATIENT 01/31 DoD INDIVIDUAL PSYCHOTHERAPY, INSIGHT ORIENTED, BEHAVIOR MODIFYING AND/OR SUPPORTIVE, IN AN OFFICE OR OUTPATIENT FACILITY, APPROXIMATELY 45 TO 50 MINUTES [id number] WITH THE PATIENT 01/10 DoD PSYCHIATRIC DIAGNOSTIC INTERVIEW EXAMINATION 01/06 [facility] URINE TEST, BY VISUAL COLOR COMPARISON METHODS 08/05 [facility] INFECTIOUS AGENT ANTIGEN DETECTION BY IMMUNOASSAY WITH DIRECT OPTICAL (IE, VISUAL) OBSERVATION; STREPTOCOCCUS, GROUP A 08/05 DoD TELE ASSESS & MGT SRV PROV QUAL NONPHYS HLTH CARE PRO TO EST PAT,PARENT,GUARD NOT ORIG REL ASSESS & MGT SRV PROV W/IN PREV 7 DAYS NOR LEAD ASSESS & MGT SRV/PX W/IN NXT 24 HR/SOON APT;5-10 MIN MED DIS 03/31 DoD REMOVAL OF INTRAUTERINE DEVICE (IUD) 01/14 [facility] DETERMINATION OF REFRACTIVE STATE 12/31 DoD TELE ASSESS & MGT SRV PROV QUAL NONPHYS HLTH CARE PRO TO EST PAT,PARENT,GUARD NOT ORIG REL ASSESS & MGT SRV PROV W/IN PREV 7 DAYS NOR LEAD ASSESS & MGT SRV/PX W/IN NXT 24 HR/SOON APT;5-10 MIN MED DIS 12/19 DoD INFLUENZA VIRUS VACCINE, TRIVALENT, LIVE (LAIV3), FOR INTRANASAL USE 08/29 [facility] INSERTION OF INTRAUTERINE DEVICE (IUD) 08/20 DoD TELE ASSESS & MGT SRV PROV QUAL NONPHYS HLTH CARE PRO TO EST PAT,PARENT,GUARD NOT ORIG REL ASSESS & MGT SRV PROV W/IN PREV 7 DAYS NOR LEAD ASSESS & MGT SRV/PX W/IN NXT 24 HR/SOON APT;5-10 MIN MED DIS 08/14 DoD SCREENING [facility] SMEAR; OBTAINING, PREPARING AND CONVEYANCE OF CERVICAL OR VAGINAL SMEAR TO LABORATORY 08/05 DoD SUBSEQ CARE VISIT () [EXCLS:PATIENTS WHO ARE SEEN FOR A CONDITION UNREL TO / CARE (EG,AN UP RESPIR INFECT;PATIENTS SEEN FOR CONSULTATION ONLY,NOT FOR CONT CARE)] 06/18 DoD SUBSEQ CARE VISIT () [EXCLS:PATIENTS WHO ARE SEEN FOR A CONDITION UNREL TO / CARE (EG,AN UP RESPIR INFECT;PATIENTS SEEN FOR CONSULTATION ONLY,NOT FOR CONT CARE)] 06/11 [facility] SUBSEQ CARE VISIT () [EXCLS:PATIENTS WHO ARE SEEN FOR A CONDITION UNREL TO / CARE (EG,AN UP RESPIR INFECT;PATIENTS SEEN FOR CONSULTATION ONLY,NOT FOR CONT CARE)] 06/03 [facility] INFLUENZA VIRUS VACCINE, TRIVALENT (IIV3), SPLIT VIRUS, 0.5 ML DOSAGE, FOR INTRAMUSCULAR USE 05/16 [facility] SUBSEQ CARE VISIT () [EXCLS:PATIENTS WHO ARE SEEN FOR A CONDITION UNREL TO / CARE (EG,AN UP RESPIR INFECT;PATIENTS SEEN FOR CONSULTATION ONLY,NOT FOR CONT CARE)] 05/16 [facility] SUBSEQ CARE VISIT () [EXCLS:PATIENTS WHO ARE SEEN FOR A CONDITION UNREL TO / CARE (EG,AN UP RESPIR INFECT;PATIENTS SEEN FOR CONSULTATION ONLY,NOT FOR CONT CARE)] 04/16 [facility] SUBSEQ CARE VISIT () [EXCLS:PATIENTS WHO ARE SEEN FOR A CONDITION UNREL TO / CARE (EG,AN UP RESPIR INFECT;PATIENTS SEEN FOR CONSULTATION ONLY,NOT FOR CONT CARE)] 03/25 [facility] SUBSEQ CARE VISIT () [EXCLS:PATIENTS WHO ARE SEEN FOR A CONDITION UNREL TO / CARE (EG,AN UP RESPIR INFECT;PATIENTS SEEN FOR CONSULTATION ONLY,NOT FOR CONT CARE)] 02/20 [facility] SUBSEQ CARE VISIT () [EXCLS:PATIENTS WHO ARE SEEN FOR A CONDITION UNREL TO / CARE (EG,AN UP RESPIR INFECT;PATIENTS SEEN FOR CONSULTATION ONLY,NOT FOR CONT CARE)] 01/23 [facility] INDIVIDUAL PSYCHOTHERAPY, INSIGHT ORIENTED, BEHAVIOR MODIFYING AND/OR SUPPORTIVE, IN AN OFFICE OR OUTPATIENT FACILITY, APPROXIMATELY 20 TO 30 MINUTES [id number] WITH THE PATIENT 01/02 [facility] SUBSEQ CARE VISIT () [EXCLS:PATIENTS WHO ARE SEEN FOR A CONDITION UNREL TO / CARE (EG,AN UP RESPIR INFECT;PATIENTS SEEN FOR CONSULTATION ONLY,NOT FOR CONT CARE)] 01/02 [facility] URINE TEST, BY VISUAL COLOR COMPARISON METHODS 11/02 [facility] TOBACCO USE CESSATION INTERVENTION, COUNSELING (COPD, CAP, CAD, ASTHMA) (DM) (PV) 10/03 [facility] SCREENING [facility] SMEAR; OBTAINING, PREPARING AND CONVEYANCE OF CERVICAL OR VAGINAL SMEAR TO LABORATORY 09/18 [facility] HEPATITIS B VACCINE (HEPB), ADULT DOSAGE, 3 DOSE SCHEDULE, FOR INTRAMUSCULAR USE 07/05 [facility] HEPATITIS B VACCINE (HEPB), ADULT DOSAGE, 3 DOSE SCHEDULE, FOR INTRAMUSCULAR USE 04/04 [facility] Ultrasound Obstetric Limited Evaluation Ultrasound Obstetric Limited Evaluation [id number] 05/25 GUERRERO DWYER OB Services Antepartum Care Only Subsequent Single Visit OB Services Antepartum Care Only Subsequent Single Visit 0502F 05/25 GUERRERO DWYER Ultrasound Trans[place] [address] 05/05 CLEMENTINA DAVILA OB Services Antepartum Care Only Subsequent Single Visit OB Services Antepartum Care Only Subsequent Single Visit 0502F 05/05 CLEMENTINA DAVILA Ultrasound [place] [address] 05/02 CLEMENTINA DAVILA OB Services Antepartum Care Only First Visit, With Report OB Services Antepartum Care Only First Visit, With Report 0500F 05/02 CLEMENTINA DAVILA Non-Physician Phone Call To Patient/Provider Brief (5-10min) Non-Physician Phone Call To Patient/Provider Brief (5-10min) [id number] 04/28 EB DOMINGO [facility] Non-Physician Phone Call To Patient/Provider Brief (5-10min) Non-Physician Phone Call To Patient/Provider Brief (5-10min) [id number] 03/09 JODIE RODRIGUEZ [facility] Non-Physician Phone Call To Patient/Provider Brief (5-10min) Non-Physician Phone Call To Patient/Provider Brief (5-10min) 27305 03/03 JODIE RODRIGUEZ [facility] Electrocardiogram Electrocardiogram 77944 02/21 RAHUL SCHMITT [facility] Psychiatric Diagnostic Evaluation Review of Records and Reports Psychiatric Diagnostic Evaluation Review of Records and Reports [id number] 11/14 WICHO SOMMERS [facility] Non-Physician Phone Call To Pt/Provider Intermed (11-20 min) Non-Physician Phone Call To Pt/Provider Intermed (11-20 min) 88383 06/22 JE WHITFIELD [facility] Psychotherapy Individual Approximately 30 Minutes Psychotherapy Individual Approximately 30 Minutes [id number] 01/31 WICHO SOMMERS [facility] Clinical Social Work Individual Outpatient Counseling 45 Minutes Clinical Social Work Individual Outpatient Counseling 45 Minutes 29003 01/10 SALOMÓN OLIVAS [facility] Psychiatric Diagnostic Evaluation Comprehensive Examination Psychiatric Diagnostic Evaluation Comprehensive Examination 32268 01/06 KEVIN THURMAN [facility] Test Test 10906 08/05 KELSIE INIGUEZ [facility] Rapid Antigen Detection Streptococcus Group A Beta Hemolytic Rapid Antigen Detection Streptococcus Group A Beta Hemolytic 81868 08/05 MONI BOSS [facility] Non-Physician Phone Call To Patient/Provider Brief (5-10min) Non-Physician Phone Call To Patient/Provider Brief (5-10min) 57720 03/31 GENA FRANKS [facility] Gynecologic Services Intrauterine Device (IUD) Removal Gynecologic Services Intrauterine Device (IUD) Removal 84379 01/22 BRIE CRUZ [facility] Determination Of Refractive State Determination Of Refractive State 91995 12/31 LUZ MUHAMMAD [facility] Ophthalmological New Patient Start Comprehensive Care Ophthalmological New Patient Start Comprehensive Care 02782 12/31 LUZ MUHAMMAD [facility] Non-Physician Phone Call To Patient/Provider Brief (5-10min) Non-Physician Phone Call To Patient/Provider Brief (5-10min) 29399 12/19 VASU CARPENTER [facility] Influenza Virus Vaccine Intranasal Live Attenuated 08/29 LEXY BRICENO [facility] Immunization Administration By Injection, One Vaccine Immunization Administration By Injection, One Vaccine 23654 08/29 LEXY BRICENO [facility] Gynecologic Services Intrauterine Device (IUD) Insertion Gynecologic Services Intrauterine Device (IUD) Insertion [id number] 08/20 BRIE CRUZ [facility] Non-Physician Phone Call To Patient/Provider Brief (5-10min) Non-Physician Phone Call To Patient/Provider Brief (5-10min) 23280 08/14 ALDO DAY [facility] Obstetrical Services Care Visit Obstetrical Services Care Visit 0503F 08/06 BRIE CRUZ [facility] OB Services Antepartum Care Only Subsequent Single Visit OB Services Antepartum Care Only Subsequent Single Visit 0502F 06/18 JE ARIZA [facility] Vaginal FEDERICO Prep Vaginal FEDERICO Prep 79895 06/11 BRIE CRUZ [facility] Vaginal Wet [place]aginal [place] 75503 06/11 BRIE CRUZ [facility] OB Services Antepartum Care Only Subsequent Single Visit OB Services Antepartum Care Only Subsequent Single Visit 0502F 06/11 BRIE CRUZ [facility] OB Services Antepartum Care Only Subsequent Single Visit OB Services Antepartum Care Only Subsequent Single Visit 0502F 06/03 JE ARIZA [facility] Immunization Administration By Injection, One Vaccine Immunization Administration By Injection, One Vaccine 35688 05/16 AL TALBOT [facility] Influenza Split Virus Vaccine 0.5mL Dosage Intramuscular 05/16 AL TALBOT [facility] OB Services Antepartum Care Only Subsequent Single Visit OB Services Antepartum Care Only Subsequent Single Visit 0502F 04/16 CESARIO JEFFERY [facility] OB Services Antepartum Care Only Subsequent Single Visit OB Services Antepartum Care Only Subsequent Single Visit 0502F 03/25 MARGARETTE TABARES [facility] OB Services Antepartum Care Only Subsequent Single Visit OB Services Antepartum Care Only Subsequent Single Visit 0502F 02/20 ZACK TOWNSEND [facility] OB Services Antepartum Care Only Subsequent Single Visit OB Services Antepartum Care Only Subsequent Single Visit 0502F 01/23 JE LUNA [facility] Psychotherapy Individual Approximately 30 Minutes Psychotherapy Individual Approximately 30 Minutes 70565 01/02 YARITZA ORTIZ [facility] OB Services Antepartum Care Only Subsequent Single Visit OB Services Antepartum Care Only Subsequent Single Visit 0502F 01/02 JE LUNA [facility] Intervention And Counseling On Ce ation Of Tobacco Use Intervention And Counseling On Cessation Of Tobacco Use 4000F 10/03 MARGARETTE TABARES [facility] Screening papanicolaou smear; obtaining, preparing and conveyance of cervical or vaginal smear to laboratory 09/18 WANDA FELICIANO [facility] Hepatitis B Vaccine (Active) Adult Dosage 07/05 ADELINE GU [facility] Immunization Administration By Injection, One Vaccine Immunization Administration By Injection, One Vaccine 88531 07/05 ADELINE GU [facility] Hepatitis B Vaccine (Active) Adult Dosage 04/04 ILA GARCIA [facility] Immunization Administration By Injection, One Vaccine Immunization Administration By Injection, One Vaccine 70350 04/04 ILA GARCIA [facility] Non-Physician Phone Call To Patient/Provider Brief (5-10min) Non-Physician Phone Call To Patient/Provider Brief (5-10min) 59524 11/16 MAUDE MORA [facility] Non-Physician Phone Call To Patient/Provider Brief (5-10min) Non-Physician Phone Call To Patient/Provider Brief (5-10min) 23388 08/15 GEOVANI JARVIS [facility] Disease management program, follow-up/christofer e ment 05/17 WICHO RUCKER [facility] Non-Physician Phone Call To Patient/Provider Brief (5-10min) Non-Physician Phone Call To Patient/Provider Brief (5-10min) 08227 04/05 NICCI ALVAREZ [facility] Disease management program, follow-up/christofer e ment 11/01 TENZIN HOPE [facility] Disease management program, follow-up/christofer e ment 10/22 CANDI ARNOLD [facility] Non-Physician Phone Call To Patient/Provider Brief (5-10min) Non-Physician Phone Call To Patient/Provider Brief (5-10min) 40533 10/22 URI SARABIA [facility] Non-Physician Phone Call To Patient/Provider Brief (5-10min) Non-Physician Phone Call To Patient/Provider Brief (5-10min) 23482 10/12 NICCI ALVAREZ [facility] Non-Physician Phone Call To Patient/Provider Brief (5-10min) Non-Physician Phone Call To Patient/Provider Brief (5-10min) 84277 09/13 DARIEN, RAVIN J [facility] Non-Physician Phone Call To Patient/Provider Brief (5-10min) Non-Physician Phone Call To Patient/Provider Brief (5-10min) 57966 09/10 DARIEN, RAVIN J [facility] Psychometric Emotional / Behavioral A e ment Psychometric Emotional / Behavioral Assessment 56490 07/20 AMAYA BAEZ [facility] Vaginal Wet [place]aginal [place] 88515 07/20 AMAYA BAEZ [facility] Non-Physician Phone Call To Patient/Provider Brief (5-10min) Non-Physician Phone Call To Patient/Provider Brief (5-10min) 98658 06/29 JEAN CLAUDE LEDEZMAY Duglas [facility] Psychometric Emotional / Behavioral A e ment Psychometric Emotional / Behavioral Assessment 15806 04/20 TENZIN HOPE [facility] Disease management program, follow-up/christofer e ment 04/16 PLACIDO MACHUCA [facility] Non-Physician Phone Call To Patient/Provider Brief (5-10min) Non-Physician Phone Call To Patient/Provider Brief (5-10min) 38482 02/25 RAVIN LEDEZMA [facility] Psychiatric Diagnostic Evaluation Review of Records and Reports Psychiatric Diagnostic Evaluation Review of Records and Reports 57768 09/22 ZACHARY AVERY [facility] Gynecologic Services Intrauterine Device (IUD) Insertion Gynecologic Services Intrauterine Device (IUD) Insertion [id number] 04/21 KARI VANEGAS [facility] Hysterosalpingograp hy With Catheter Contrast Injection Hysterosalpingogra phy With Catheter Contrast Injection 38926 04/14 KARI VANEGAS Procedure: A final timeout was performed. Pt name, , planned procedure, allergies, and negative test were confirmed with patient and participating staff and provider. Speculum inserted, cervix visualized, and cleansed with betadine solution. The HSG catheter was primed and easily passed through the cervix and HSG catheter and balloon inflated. The endometrial cavity was then instilled with nonionic contrast material. Uterine cavity shape was normal. The left and right Essure microinserts placed in the fallopian tubes were visualized. The right tubes did not have any filling with contrast. The Left tube filled with contrast with spillage noted within the pelvis. The balloon was deflated and catheter removed. The patient tolerated the procedure well. 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 No complications. [facility] Screening papanicolaou smear; obtaining, preparing and conveyance of cervical or vaginal smear to laboratory 03/04 AMAYA BAEZ [facility] Vaginal Wet [place]aginal [place] 72840 03/04 AMAYA BAEZ [facility] Hysterosalpingograp hy With Catheter Contrast Injection Hysterosalpingogra phy With Catheter Contrast Injection 43737 01/06 GIANNA STRAUSS [facility] Psychotherapy With Medication Management Psychotherapy With Medication Management 48342 11/28 ZACHARY AVERY [facility] Psychotherapy Interactive Complexity Psychotherapy Interactive Complexity 98693 11/28 ZACHARY AVERY [facility] Psychotherapy Individual Approximately 60 Minutes 11/28 ZACHARY AVERY [facility] Non-Physician Phone Call To Patient/Provider Brief (5-10min) Non-Physician Phone Call To Patient/Provider Brief (5-10min) 09274 10/14 DIMPLE JOHNSON [facility] Non-Physician Phone Call To Patient/Provider Brief (5-10min) Non-Physician Phone Call To Patient/Provider Brief (5-10min) 77517 10/10 DIMPLE JOHNSON [facility] Conscious Sedation By Dr Performing Service 5 Yrs Or Older Initial 15 [address] By Dr Performing Service 5 Yrs Or Older Initial 15 minutes 64799 10/09 PRIYA CHOI Hysteroscopy, Bilat Fallopian Cannulation, Place Perm Occlusion Implants Hysteroscopy, Bilat Fallopian Cannulation, Place Perm Occlusion Implants 88796 10/09 PRIYA CHOI Non-Physician Phone Call To Patient/Provider Brief (5-10min) Non-Physician Phone Call To Patient/Provider Brief (5-10min) 94213 10/03 FAMILIA THOMPSON [facility] Non-Physician Phone Call To Patient/Provider Brief (5-10min) Non-Physician Phone Call To Patient/Provider Brief (5-10min) 74173 10/01 JOE ASH Psychotherapy Individual Approximately 60 Minutes 09/17 ZACHARY AVERY [facility] Non-Physician Phone Call To Patient/Provider Brief (5-10min) Non-Physician Phone Call To Patient/Provider Brief (5-10min) 60356 08/26 JOE ASH [facility] Non-Physician Phone Call To Patient/Provider Brief (5-10min) Non-Physician Phone Call To Patient/Provider Brief (5-10min) 53267 08/22 MANN COLON [facility] Psychotherapy Indiv Interactive Approx 30 Min W/ Medical Eval & Management 06/20 ZACHARY AVERY Psychotherapy Indiv Interactive Approx 45 Min W/ Medical Eval & Management 05/17 ZACHARY AVERY Non-Physician Phone Call To Patient/Provider Brief (5-10min) Non-Physician Phone Call To Patient/Provider Brief (5-10min) 51468 04/26 MANN COLON Psychotherapy Indiv Interactive Approx 45 Min W/ Medical Eval & Management 04/16 ZACHARY AVERY Vaginal Wet [place] Vaginal [place] 79185 04/11 AMAYA BAEZ [facility] Non-Physician Phone Call To Patient/Provider Brief (5-10min) Non-Physician Phone Call To Patient/Provider Brief (5-10min) 88648 04/10 ANANDA WILLAMS [facility] Psychotherapy Indiv Interactive Approx 45 Min W/ Medical Eval & Management 02/18 ZACHARY AVERY Psychotherapy Indiv Interactive Approx 45 Min W/ Medical Eval & Management 01/01 ZACHARY AVERY Psychotherapy Indiv Interactive Approx 45 Min W/ Medical Eval & Management 11/19 ZACHARY AVERY Psychotherapy Indiv Interactive Approx 45 Min W/ Medical Eval & Management 10/23 ZACHARY AVERY Non-Physician Phone Call To Patient/Provider Brief (5-10min) Non-Physician Phone Call To Patient/Provider Brief (5-10min) 56622 09/21 MANN COLON Psychotherapy Indiv Interactive Approx 45 Min W/ Medical Eval & Management 09/06 ZACHARY AVERY Psychotherapy Indiv Interactive Approx 45 Min W/ Medical Eval & Management 07/24 ZACHARY AVERY OB Services Antepartum Care Only Subsequent Single Visit OB Services Antepartum Care Only Subsequent Single Visit 0502F 06/30 CLEMENTINA DAVILA [facility] Psychotherapy Individual Approximately 45 Minutes 06/21 CATHY TOMAS Test Test 28161 06/18 LUISANA DEVLIN [facility] Intrauterine Device (IUD) Insertion Gynecologic Services Intrauterine Device (IUD) Insertion [id number] 06/18 LUISANA DEVLIN [facility] Psychiatric Diagnostic Evaluation With Medical Evaluation And Management Psychiatric Diagnostic Evaluation With Medical Evaluation And Management [id number] 06/07 ZACHARY AVERY DoD Psychotherapy Individual Approximately 45 Minutes 06/04 CATHY TOMAS DoD Vaginal Wet [place] Vaginal [place] 17004 06/04 LUISANA DEVLIN [facility] Clinical Social Work Individual Outpatient Counseling 45 Minutes 05/17 CATHY TOMAS [facility] Psychiatric Diagnostic Evaluation With Medical Evaluation And Management Psychiatric Diagnostic Evaluation With Medical Evaluation And Management 86593 05/01 ZACHARY AVERY DoD Psychotherapy Individual Approximately 45 Minutes 04/25 CATHY TOMAS [facility] Psychotherapy Interactive Complexity Psychotherapy Interactive Complexity 80657 04/13 ZACHARY AVERY DoD Psychotherapy Indiv Approx 60 Min W/ Medical Evaluation & Management 03/26 ZACHARY AVERY DoD Psychotherapy Individual Approximately 60 Minutes 03/20 CATHY TOMAS DoD Psychotherapy Individual Approximately 60 Minutes 03/02 CATHY TOMAS [facility] Gynecologic Services Diaphragm Fitting With Instructions Gynecologic Services Diaphragm Fitting With Instructions 24121 02/20 ALYSSA COLÓN DoD Psychotherapy Individual Approximately 60 Minutes 02/19 CATHY TMOAS DoD Psychotherapy Interactive Complexity Psychotherapy Interactive Complexity 85121 02/13 ZACHARY AVERY DoD Psychotherapy Indiv Approx 60 Min W/ Medical Evaluation & Management 02/13 AZCHARY AVERY [facility] Clinical Social Work Individual Outpatient Counseling 45 Minutes 01/30 CATHY TOMAS DoD Psychotherapy Interactive Complexity Psychotherapy Interactive Complexity 19358 01/09 MOLDZACHARY PARRISH DoD Psychotherapy Indiv Approx 60 Min W/ Medical Evaluation & Management 01/09 MOLDELENA PARRISHELE D DoD Psychotherapy Indiv Approx 60 Min W/ Medical Evaluation & Management 12/26 ZACHARY AVERY DoD Psychotherapy Interactive Complexity Psychotherapy Interactive Complexity 70935 12/26 MOLDZACHARY PARRISH D DoD Psychotherapy Interactive Complexity Psychotherapy Interactive Complexity 05324 12/04 ZACHARY AVERY [facility] Psychiatric Diagnostic Evaluation With Medical Evaluation And Management Psychiatric Diagnostic Evaluation With Medical Evaluation And Management 14742 12/04 ZACHARY AVERY DoD Psychotherapy Individual Approximately 60 Minutes 12/01 CATHY TOMAS DoD OB Services Antepartum Care Only Subsequent Single Visit OB Services Antepartum Care Only Subsequent Single Visit 0502F 11/27 CLEMENTINA DAVILA DoD Psychotherapy Individual Approximately 60 Minutes 11/20 CATHY TOMAS DoD OB Services Antepartum Care Only Subsequent Single Visit OB Services Antepartum Care Only Subsequent Single Visit 0502F 11/14 GUERRERO DWYER DoD Psychiatric Diagnostic Evaluation With Medical Evaluation And Management Psychiatric Diagnostic Evaluation With Medical Evaluation And Management 61147 11/09 ZACHARY AVERY [facility] Psychotherapy Interactive Complexity Psychotherapy Interactive Complexity 90418 11/09 ZACHARY AVERY Non-Physician Phone Call To Patient/Provider Brief (5-10min) Non-Physician Phone Call To Patient/Provider Brief (5-10min) 93403 11/08 GAYE DECKER Psychotherapy Interactive Complexity Psychotherapy Interactive Complexity 30677 11/07 ZACHARY AVERY [facility] Psychiatric Diagnostic Evaluation With Medical Evaluation And Management Psychiatric Diagnostic Evaluation With Medical Evaluation And Management 38530 11/07 ZACHARY AVERY [facility] Medical Nutrition Therapy Initial A e ment And Intervention Each 15 Minutes Medical Nutrition Therapy Initial Assessment And Intervention Each 15 Minutes 40401 11/03 REYES LOPEZ [facility] Non-Physician Phone Call To Patient/Provider Brief (5-10min) Non-Physician Phone Call To Patient/Provider Brief (5-10min) 09236 10/30 GAYE DECKER [facility] OB Services Antepartum Care Only Subsequent Single Visit OB Services Antepartum Care Only Subsequent Single Visit 0502F 10/19 GUERRERO DWYER B DoD Psychotherapy Individual Approximately 60 Minutes 10/17 CATHY TOMAS DoD OB Services Antepartum Care Only Subsequent Single Visit OB Services Antepartum Care Only Subsequent Single Visit 0502F 10/13 GUERRERO DWYER B DoD OB Services Antepartum Care Only Subsequent Single Visit OB Services Antepartum Care Only Subsequent Single Visit 0502F 10/06 GUERRERO DWYER B DoD Psychiatric Therapy Family (Conjoint) 10/04 CATHY TOMAS DoD Psychotherapy Individual Approximately 60 Minutes 09/28 GENOVEVA CATHY DoD OB Services Antepartum Care Only Subsequent Single Visit OB Services Antepartum Care Only Subsequent Single Visit 0502F 09/25 GUERRERO DWYER B DoD Psychotherapy Individual Approximately 60 Minutes 09/22 TOMAS CATHY DoD OB Services Antepartum Care Only Subsequent Single Visit OB Services Antepartum Care Only Subsequent Single Visit 0502F 09/21 THELMA HA DoD OB Services Antepartum Care Only Subsequent Single Visit OB Services Antepartum Care Only Subsequent Single Visit 0502F 09/15 GUERRERO DWYER [facility] Psychiatric Diagnostic Evaluation Psychiatric Diagnostic Evaluation 38623 09/15 CATHY TOMAS DoD OB Services Antepartum Care Only Subsequent Single Visit OB Services Antepartum Care Only Subsequent Single Visit 0502F 09/08 NELLBRYANNADAVY SCHNEIDERDEMARIO Natarajan DoD OB Services Antepartum Care Only Subsequent Single Visit OB Services Antepartum Care Only Subsequent Single Visit 0502F 08/28 GUERRERO DWEYR DoD OB Services Antepartum Care Only Subsequent Single Visit OB Services Antepartum Care Only Subsequent Single Visit 0502F 08/17 GUERRERO DWYER DoD OB Services Antepartum Care Only Subsequent Single Visit OB Services Antepartum Care Only Subsequent Single Visit 0502F 07/18 GUERRERO DWYER DoD OB Services Antepartum Care Only Subsequent Single Visit OB Services Antepartum Care Only Subsequent Single Visit 0502F 07/06 VIOLET WALKER [facility] Social History Combined list of available smoking, tobacco, and other social history from [facility] facilities. Social History Type Response Date Comment Sourc e Sexual Orientation Ambula tory Pharmacy Gender identity Ambulator y Pharmacy Sex Representation Female Unknow n Organization This section is an empty soc ial history section. DoD Assessment and Plan Combined list of future care activities from [facility] and [facility] facilities (e.g., assessment and plan notes, appointments, orders, and referrals). Additional future care activities may be listed in the Plan of Care section. Result Assessment and Plan Date Source Assessment and Plan No data available for this section 10/06/2024 Ambulatory Pharmacy Functional Status Combined list of recent functional and cognitive assessments recorded at [facility] Functional [place] Measurement (FIM) Scale: 1 = Total Assistance (Subject = 0% +), 2 = Maximal Assistance (Subject = 25% +), 3 = Moderate Assistance (Subject = 50% +), 4 = Minimal Assistance (Subject = 75% +), 5 = Supervision, 6 = Modified [place] (Device), 7 = Complete [place] (Timely, Safely). Assessment Date/Time Source Assessment Type Assessment Skill Assessment Score Assessment Details No data available for this section
--- OUTSIDE RECORDS SUMMARY | 2024-10-05 19:37 | XMS_ITS | Encounter Summary ---
Author Organization [facility] Address [facility] [place] [address] Care Team Providers Care Interactive Producer Name Role Phone Kesha Quinones MD Unavailable [phone] Noel Cerna MD Primary Care Provider [phone] Sandie Arriola MD Primary Care Provider + Encounter Details Date Type Department Care Team (Late Contact Info) Description 12/12/2021 [facility] [address] [address] Verna Loera MA Social History Tobacco Use Types Packs/Day Years Used Date Smoking Tobacco: Former Cigarettes 2015 Electronic Cigarettes Smokeless Tobacco: Current Comments:quit smoking may 21 16, vapes daily now, was smoking 1/2 to 1 ppd, now down to 3mg of nicotine in vape. Alcohol Use Standard Drinks/Week Comments Yes 11.7 (1 standard dri nk = 0.6 oz pure alcohol) was drinking 1 glass of wine a night until recently when she stopped as she has been sick with URI. 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 Legal Sex Female 8:26 PM CDT Gender Identity Not on file Sexual Orientation Not on file documented as of this encounter Plan of Treatment Upcoming Encounters Date Type Department Care Team (Late st Contact Info) Description 03/08/2025 9:00 AM CDT Allied Health/Nurse Visit [facility] Family [facility] - [place] [address] [place] [address] Sandie Arriola MD [address] [place] [address] 03/15/2025 9:40 AM CDT Office Visit [facility] - [place] [address] [place] [address] Sandie Arriola MD [address] [place], [place] [id number] documented as of this encounter Procedures Procedure Name Priority Date/Time Associated Diagnosis Comments FOLATE (OUTSIDE LAB) Routine 10/29/2021 CBC (OUTSIDE LAB) Routine 10/29/2021 VITAMIN B-12 Routine 10/29/2021 COMPREHENSIVE METABOLIC PANEL Routine 10/29/2021 HEMOGLOBIN, GLYCOSYLATED Routine 10/29/2021 THYROID STIM HORMONE TSH Routine 10/29/2021 PHOSPHORUS, INORGANIC PHOSPHATE Routine 10/29/2021 VITAMIN D, 25 OH Routine 10/29/2021 MAGNESIUM Routine 10/29/2021 IRON Routine 10/29/2021 documented in this encounter Results * VITAMIN D, 25 OH (10/29/2021) VITAMIN D 25 HYDROXY S/P/B 32.3 10/29/2021 [facility] Abstract LABORATORY Final Result * COMPREHENSIVE METABOLIC PANEL (10/29/2021) SODIUM S/P/B 142 POTASSIUM S/P/B 4.3 CO2 27 CHLORIDE S/P/B 107 GLUCOSE 96 mg/dL CALCIUM S/P/B 8.9 BUN 11 CREATININE S/P/B 0.87 0.5 - 1.0 EGFR NON-AFR. AMER. 84 <=90 ALKALINE PHOSPHATASE S/P/B 92 ALT 18 AST 18 BILIRUBIN TOTAL S/P/B 0.2 ALBUMIN S/P/B 4.2 3.5 - 5.0 TOTAL PROTEIN S/P/B 7.1 10/29/2021 [facility] Abstract LABORATORY Final Result * PHOSPHORUS, INORGANIC PHOSPHATE (10/29/2021) PHOSPHORUS 2.8 10/29/2021 [facility] LABORATORY Final Result * MAGNESIUM (10/29/2021) MAGNESIUM 1.9 10/29/2021 [facility] LABORATORY Final Result * VITAMIN B-12 (10/29/2021) VITAMIN B12 S/P/B 140 10/29/2021 [facility] LAB[facility]AT[facility] Final Result * FOLATE (OUTSIDE LAB) (10/29/2021) FOLATE 10.9 10/29/2021 [facility] Abstract LAB-OUTSIDE/ABSTRACTED Final Result * HEMOGLOBIN, GLYCOSYLATED (10/29/2021) HGB A1C 5.7 % 10/29/2021 [facility] LABORATORY Final Result * CBC (OUTSIDE LAB) (10/29/2021) WBC 6.8 HGB 14.6 HCT 44.7 PLT 338 10/29/2021 [facility] Abstract LAB-OUTSIDE/ABSTRACTED Final Result * IRON (10/29/2021) IRON 81 10/29/2021 [facility] LAB[facility]ATORY Final Result * THYROID STIM HORMONE, TSH (10/29/2021) TSH 1.56 10/29/2021 [facility] Abstract LABORATORY Edited Resul t - Final documented in this encounter Visit Diagnoses Not on filedocumented in this encounter Care Teams Interactive Producer Relationship Specialty Start Date End Date Noel Cerna MD [address] [place] [address] PCP - General FAMILY PRACTICE 06/04/20 03/05/24 Sandie Arriola MD [address] [place] [id number] PCP - General FAMILY PRACTICE 03/06/24 Kesha Quinones MD [address] [place] [address] Referring Physician OBJAMESN 10/08/17 documented as of this encounter
--- OUTSIDE RECORDS SUMMARY | 2024-10-05 19:38 | XMS_ITS | Clinical Summary ---
Author Organization [facility] Address [facility] [place] [address] Care Team Providers Care Director Supplier Quality Name Role Phone Kesha Quinones MD Unavailable [phone] Sandie Arriola MD Primary Care Provider + Allergies Active Allergy Reactions Criticality Noted Date Comments Citalopram Rash,Swelling,Hives Low 06/12/2020 Tongue swells Escitalopram Rash,Swelling,Throat swelling,Unknown Low 06/12/2020 Tongue swells Fluoxetine Diarrhea 10/13/2013 Pt states that she isn't allergic to this. Metoclopramide Anxiety,Other (see comment),Unknown Low 10/13/2013 Promethazine Unknown 10/13/2013 Sertraline Other (see comment),Unknown 10/13/2013 Worsening depression and insomnia Medications amitriptyline (ELAVIL) 25 MG tabletIndication s:Irritable bowel syndrome with diarrhea Take 1 tablet (25 mg total) by mouth nightly. 90 tablet 3 03/06/2024 Active dicyclomine (BENTYL) 10 MG capsuleIndicatio ns:Irritable bowel syndrome with diarrhea Take 1 capsule (10 mg total) by mouth 4 (four) times daily as needed. 30 capsule 3 03/06/2024 Active SUMAtriptan (IMITREX) 100 MG tabletIndication s:Migraine with aura and without status migrainosus, not intractable Take 1 tablet (100 mg total) by mouth daily as needed for Migraine. Take 1 tablet at onset of symptoms, may take 1 tablet 2 hours later. Max of 2 tablets in 24-hour period. 30 tablet 3 03/06/2024 03/06/20 25 Active vitamin D3 (VITAMIN D) 25 mcg tablet Take 1 tablet (25 mcg total) by mouth daily. Active Active Problems Problem Noted Date Diagnosed Date Panic disorder 03/06/2024 Moderate episode of recurren t major depressive disorder ([facility]) 03/06/2024 Migraine with aura 03/06/2024 Overview (03/06/2024): Twice per week. With visual aura. Tried topamax but didn't care for it. Sumatriptan works every time. Assessment & Plan (03/06/2024 11:45 AM CDT): Generally controlled. Continue sumatriptan. Prediabetes 03/06/2024 Overview (03/06/2024): A1c 6.1% in January 2024. Gastroesophageal reflux disease without esophagi tis 02/29/2024 Overview (03/06/2024): Will take otcs Adjustment disorder with mixed anxiety and depre ssed mood 02/29/2024 Cigarette smoker 02/29/2024 Endometriosis 02/29/2024 Female pelvic pain 02/29/2024 Sinusitis 02/29/2024 Irritable bowel syndrome with diarrhea 6 Overview (03/06/2024): Taking amitriptyline. Saw GI in the past. Uses bentyl and zofran prn. Assessment & Plan (03/06/2024 11:45 AM CDT): Controlled. Discussed concern for serotonin syndrome in light of her also taking trazodone, Prozac. Patient has been on this regimen for some time and is willing to accept the risk. She will monitor for symptoms. Continue amitriptyline, Bentyl, Zofran. Generalized anxiety disorder 10/03/2013 Overview (03/06/2024): Psychiatry is managing her buspirone, Prozac, Lamictal, trazodone. Insomnia 10/03/2013 Overview (03/06/2024): Psychiatry is managing her trazodone. Asthma ([facility]) Rtudttu-Xpltu-Jddqt disease Overview (03/06/2024): Saw neurology and tried taking gabapentin but did not tolerate. Managing with symptoms without any intervention at this time. Resolved Problems Problem Noted Date Diagnosed Date Resolved Date Condition influencing health status 02/29/2024 03/06/2024 Encounters Date Type Department Care Team Description 08/24/[address] [address] Sandie Arriola MD Question 08/14/2024 12:40 PM [facility]Y [facility] Office Visit [address] [address] Sandie Arriola MD Follow Up (Here for follow up on vag discharge. ) 08/14/2024 - 08/14/2024 11:59 PM [facility] Hospital Encounter [facility] [address] [address] Sandie Arriola MD Discharge Disposition: Home or Self Care (Routine Discharge) 08/14/2024 Travel 08/08/[address] [place] [address] Sandie Arriola MD Lab Results 08/08/[address] [place] [address] Sandie Arriola MD Lab Results 08/03/2024 1:40 PM DA[facility]Y [facility] Office Visit [address] [place] [address] Sandie Arriola MD Fatigue (Just feeling tired. Hx of vit d defiency. ); Urinary Problem (Freq urination. Also having milky vag discharge. No vag itching. Onset- 1 wk. Odor in the vag area. ); Anxiety (Would like to have an rx for xanax. Going thru a divorce. ) 08/03/2024 - 08/03/2024 11:59 PM DA[facility]Y HAND Hospital Encounter [facility] [place] [address] Sandie Arriola MD Discharge Disposition: Home or Self Care (Routine Discharge) 08/03/2024 Travel 07/31/2024 Telephone [facility] Family [facility] - [place] [address] [place] [address] Sandie Arriola MD Lab Order; Fatigue from Last 3 Months Immunizations Name Administration Dates Next Due H1N1 Intranasal 2008 Influenza 08/29/2009 Hepatitis A 10/30/2004 Hepatitis A (Havrix [address]) 10/30/2004 Hepatitis B (Generic: Adult) 07/05/2008,04/04/20 08 Influenza (Generic) 07/15/2016, 4,06/10/2012,06/15/2011,1 08/30/2009,05/16/2009 Influenza Adult (Generic) 05/21/2023,05/11/2018, 06/07/2014 Tdap (Generic) 12/01/2023,11/20/2013 Family History Medical History Relation Comments Diabetes Brother No Known Problems Child 1 No Known Problems Child 2 Lung Cancer Father Heart Attack Maternal Grandfather Stent Cardiac Maternal Grandfather Stroke Maternal Grandfather Mental Health Mother Thyroid Disease Mother Heart Attack Paternal Grandmother Stent Cardiac Paternal Grandmother Crohns Disease Sister 1 Diabetes Sister 2 Thyroid Disease Sister 2 Relation Status Comments Brother Alive Child 1 Alive Child 2 Alive Father Maternal Grandfather Maternal Grandmother Mother Alive Paternal Grandfather Paternal Grandmother Alive Sister 1 Alive Sister 2 Alive Social History Tobacco Use Types Packs/Day Years Used Date Smoking Tobacco: Every Day Cigarettes 1 25.9 Started: 1991; L ast attempted to quit: 2016 Electronic Cigarettes Passive Smoke Exposure: Past Smokeless Tobacco: Never Tobacco Cessation:Ready to Q uit: No; Counseling Given: Yes Comments:quit smoking may 2016, vapes daily now, was smoking 1/2 to 1 ppd, now down to 3mg of nicotine in vape. Alcohol Use Standard Drinks/Week Comments Yes 11.7 (1 standard dri nk = 0.6 oz pure alcohol) was drinking 1 glass of wine a night until recently when she stopped as she has been sick with URI. PHQ-2 Answer Date Recorded Patient Health Questionnaire-2 Score 2 08/03/2024 Comments No Sex and Gender Information Value Date Recorded Sex Assigned at Female 08/15/2024 8:20 AM DAIRY HAND Legal Sex Female 8:26 PM CDT Gender Identity Not on file Sexual Orientation Not on file Last Filed Vital Signs Vital Sign Reading Time Taken Comments Blood Pressure 126/75 08/14/2024 1:12 PM DA[facility] HAND Pulse 78 08/14/2024 1:12 PM DA[facility] HAND Temperature 36.4 C (97.6 F) 08/14/2024 1:12 PM DA[facility] HAND Respiratory Rate 17 04/24/2024 10:30 AM CDT Oxygen Saturation 97% 08/14/2024 1:12 PM DAIR[facility] HAND Inhaled Oxygen Concentration - - Weight 65.8 kg (145 lb) 08/14/2024 1:12 PM DA[facility] HAND Height 156.2 cm (5' 1.5 ) 08/14/2024 1:12 PM DAIRY HAND Body Mass Index 26.95 08/14/2024 1:12 PM DAIRY HAND Plan of Treatment Upcoming Encounters Date Type Department Care Team (Late st Contact Info) Description 03/08/2025 9:00 AM CDT Allied Health/Nurse Visit [facility] Family Medicine [address] [address] Sandie Arriola MD [address] [facility] [address] [place] [id number] 03/15/2025 9:40 AM CDT Office Visit [facility] Family Medicine [address] [address] Sandie Arriola MD [address] [address] Health Maintenance Due Date Last Done Comments Cervical Cancer Screening Pap Smear (Age 30 to 64) Every 3 Years 1977 Pneumococcal Vaccine: Pediatrics (0 to 5 Years) and At-Risk Patients (6 to 64 Years) (1 of 2 - PCV) 1983 Hepatitis C 1995 Cervical Cancer Screening Pap with HPV Testing (Age 30 to 64) Every 5 Years 2007 Cervical Cancer Screening with HPV 2007 Hepatitis B Vaccines (3 of 3 - 19+ 3-dose series) 10/02/2008 07/05/2008, 04/04/2008 Mammogram Screening 2017 COVID-19 Vaccine (3 - season) 2024 09/11/2021, 08/14/2021 Influenza Adult (#1) 2024 05/21/2023, 05/11/2018, 07/15/2016, Additional history exists Annual Physical 03/06/2025 03/06/2024 Colorectal Cancer Screening Colonoscopy (10 Years) 11/22/2030 11/22/2020 DTaP, Tdap and Td Vaccines (3 - Td or Tdap) 11/30/2033 12/01/2023, 11/20/2013 PHQ-2 (Physician [place]) Completed 08/03/2024 Meningococcal B Vaccine Aged Out No l onger eligible based on patient's age to complete this topic Meningococcal Vaccine Aged Out No willow edvin eligible based on patient's age to complete this topic RSV Immunizations Under 20 Months Aged Out No longer eligible based on patient's age to complete this topic Procedures Procedure Name Priority Date/Time Associated Diagnosis Comments CHLAM/GC/TRICHOMONAS PROFILE Routine 08/14/2024 1:24 PM DAIRY HAND Vaginal discharge HAYDEE/TRICH PCR Routine 08/14/2024 1:2 4 PM DA[facility] HAND Vaginal discharge URINE BACTERIA CULTURE Routine 3:31 PM DAIRY HAND Urinary symptom or sign HEMOGLOBIN, GLYCOSYLATED Routine 08/03/2024 2:23 PM DAIR[facility] HAND Routine general medical examination at a health care facility LIPID PANEL Routine 08/03/2024 2:23 PM DA[facility] HAND Routine general medical examination at a health care facility VITAMIN B-12 Routine 08/03/2024 2:23 PM DA[facility] HAND Other fatigue VITAMIN D, 25 OH Routine 08/03/2024 2:23 PM DA[facility] HAND Other fatigue CBC W/DIFF AUTOMATED Routine 08/03/2024 2:23 PM [facility] HAND Other fatigue COMPREHENSIVE METABOLIC PANEL Routine 08/03/2024 2:23 PM DA[facility] HAND Other fatigue TSH W/REFLEX Routine 08/03/2024 2:23 PM DA[facility] HAND Other fatigue URINALYSIS AUTO DIP Routine 08/03/2024 Urinary symptom or sign COLONOSCOPY GENERIC (SCAN ORDER) 11/22/2020 from Last 3 Months or Most Recently Relevant to Health Maintenance Results * HAYDEE/TRICH PCR (08/14/2024 1:24 PM DA[facility]Y HAND) SPEC DESCRIPTION VAGINAL SPECIMEN 08/14/2024 1:24 PM DAIRY HAND [facility] HAYDEE SPECIES NOT DETECTED NOT DETECTED 08/15/2024 4:28 PM DAIRY HAND [facility] Comment:PERFORMED BY NUCLEIC ACID AMPLIFICATION HAYDEE GLABRATA NOT DETECTED NOT DETECTED 08/15/2024 4:28 PM DAIRY HAND [facility] Comment:PERFORMED BY NUCLEIC ACID AMPLIFICATION TRICHOMONAS NEGATIVE NEGATIVE 08/15/2024 4:28 PM DAIRY HAND [facility] VAGINAL STRUCTURE / Unknown 08/14/2024 1:24 PM DAIRY HAND us Sandie Arriola MD MICROBIOLOGY - GENERAL O RDERABLES Final Result [facility] [address] [place] [address], * CHLAM/GC/TRICHOMONAS PROFILE (08/14/2024 1:24 PM DAIRY HAND) SPEC DESCRIPTION CERVIX 08/14/19 25 1:24 PM DAIRY HAND [facility] CHLAMYDIA RNA TMA NEGATIVE NEGATIVE 025 4:06 PM DAIRY HAND [facility] Comment:PERFORMED BY NUCLEIC ACID AMPLIFICATION N.GONORRHOEAE RNA TMA NEGATIVE NEGATIVE 08/15/2024 4:06 PM DAIRY HAND [facility] Comment:PERFORMED BY NUCLEIC ACID AMPLIFICATION TRICHOMONAS NEGATIVE NEGATIVE 08/15/2024 4:07 PM DAIRY HAND [facility] Comment:PERFORMED BY NUCLEIC ACID AMPLIFICATION CERVIX UTERI STRUCTURE / Unknown 08/14/2024 1:24 PM DAIRY HAND us Sandie Arriola MD MICROBIOLOGY - GENERAL O RDERABLES Final Result [facility] [address] [place] [address], [place] [phone] * URINE BACTERIA CULTURE (08/03/2024 3:31 PM DAIRY HAND) SPEC DESCRIPTION URINE VOIDED 08/03/2024 3:32 PM DAIRY HAND [facility] SPECIAL REQUESTS NO SPECIAL REQUEST 08/03/2024 3:32 PM DAIRY HAND [facility] CULTURE RESULT NO GROWTH (< OR = 1,000 CFU/ML) 08/05/2024 2:29 PM DAIRY HAND [facility] URINE SPECIMEN FROM URETHRA / Unknown 08/03/2024 3:31 PM DAIRY HAND 08/03/2024 9:01 PM DAIRY HAND us Sandie Arriola MD MICROBIOLOGY - GENERAL O RDERABLES Final Result [facility] [address] [place] [address], [place] [phone] [id number] * TSH W/REFLEX (08/03/2024 2:23 PM DAIRY HAND) TSH 2.777 0.358 - 3.740 uIU/ML 08/04/2024 10:36 AM DAIRY HAND [facility] 08/03/2024 2:23 PM DAIRY HAND Sandie Arriola MD LABORATORY Final Re sult Performing Organization Address [facility]/ZIP Co de Phone Number [facility] [address] [place] [address], [place] [phone] * (ABNORMAL) HEMOGLOBIN, GLYCOSYLATED (08/03/2024 2:23 PM DAIRY HAND) HGB A1C 5.7 4.5 - 6.2 % 08/03/2024 7:42 PM DAIRY HAND [facility] ESTIMATED AVG GLUCOSE 117(H) 74 - 106 MG/DL 08/03/2024 7:42 PM DAIRY HAND [facility] 08/03/2024 2:23 PM DAIRY HAND Sandie Arriola MD LABORATORY Final Re sult Performing Organization Address City/[facility]/ZIP Co de Phone Number [address] [address], [place] [phone] * VITAMIN B-12 (08/03/2024 2:23 PM DAIRY HAND) VITAMIN B12 S/P/B 456 193 - 986 PG/ML 08/04/2024 10:36 AM DAIRY HAND [facility] 08/03/2024 2:23 PM DAIRY HAND Sandie Arriola MD LABORATORY Final Re sult Performing Organization Address City/[facility]/ZIP Co de Phone Number [facility] [address] [place] [address], [place] [phone] * (ABNORMAL) COMPREHENSIVE METABOLIC PANEL (08/03/2024 2:23 PM [facility]) [facility] SODIUM S/P/B 139 136 - 145 MMOL/L 08/04/2024 10:36 AM [facility] POTASSIUM S/P/B 4.0 3.5 - 5.1 MMOL/L 08/04/2024 10:36 AM [facility] CHLORIDE S/P/B 103 98 - 107 MMOL/L 08/04/2024 10:36 AM [facility] CO2 28.5 21 - 32 MMOL/L 08/04/2024 10:36 AM [facility] GLUCOSE 80 70 - 99 MG/DL 08/04/2024 10:36 AM [facility] BUN 6(L) 7 - 18 MG/DL 08/04/2024 10:36 AM [facility] CREATININE S/P/B 0.65 0.55 - 1.02 MG/DL 08/04/2024 10:36 AM [facility] CALCIUM S/P/B 8.8 8.4 - 10.5 MG/DL 08/04/2024 10:36 AM [facility] BILIRUBIN TOTAL S/P/B 0.3 0.2 - 1.0 MG/DL 08/04/2024 10:36 AM [facility] ALKALINE PHOSPHATASE S/P/B 103(H) 39 - 100 U/L 08/04/2024 10:36 AM [facility] AST 25 15 - 37 U/L 08/04/2024 10:36 AM [facility] ALT 53 14 - 59 U/L 08/04/2024 10:36 AM [facility] TOTAL PROTEIN S/P/B 7.3 6.4 - 8.2 G/DL 08/04/2024 10:36 AM [facility] ALBUMIN S/P/B 3.8 3.4 - 5.0 G/DL 08/04/2024 10:36 AM DAIRY HAND [facility] ANION GAP 7.5 5 - 15 MMOL/L 08/04/2024 10:36 AM DAIRY HAND [facility] Comment:REFERENCE RANGE NOT ESTABLISHED OSMOLALITY (CALC) 285 MOSM/KG 025 10:36 AM DAIRY HAND [facility] Comment:REFERENCE RANGE NOT ESTABLISHED GFR ESTIMATE >90 >90 ML/MIN/1. 73 M2 08/04/2024 10:36 AM DAIRY HAND [facility] GFR NOTES GFR REFERENCE S: 08/04/2024 10:36 AM DAIRY HAND [facility] Comment: THE ESTIMATED GFR IS CALCULATED USING THE 2020 CKD-EPI EQUATION. THE FOLLOWING CATEGORIES FOR GRADING RENAL FUNCTION ARE RECOMMENDED BY THE INTERNATIONAL SOCIETY OF NEPHROLOGY (KDIGO 2012 CLINICAL PRACTICE GUIDELINE). G1,NORMAL OR HIGH: >89 ml/min/1.73 m2 G2,MILDLY DECREASED: 60-89 ml/min/1.73 m2 G3A,MILDLY TO MODERATELY DECREASED: 45-59 ml/min/1.73 m2 G3B,MODERATELY TO SEVERELY DECREASED: 30-44 ml/min/1.73 m2 G4,SEVERELY DECREASED: 15-29 ml/min/1.73 m2 G5,KIDNEY FAILURE: <15 ml/min/1.73 m2 08/03/2024 2:23 PM DAIRY HAND us Sandie Arriola MD LABORATORY Final Re sult [facility] [address] [place] [address], * (ABNORMAL) LIPID PANEL (08/03/2024 2:23 PM DAIRY HAND) CHOLESTEROL 251(H) <200 MG/DL 08/04/2024 10:36 AM DAIRY HAND [facility] TRIGLYCERIDES 89 <150 MG/DL 08/04/2024 10:36 AM DAIRY HAND [facility] HDL 58 >40 MG/DL 08/04/2024 10:36 AM DAIRY HAND [facility] LDL-C 175(H) <100 MG/DL 08/04/2024 10:36 AM DAIRY HAND [facility] VLDL CALCULATION 18 5 - 28 MG/DL 08/04/2024 10:36 AM DAIRY HAND [facility] CHOL/HDL RATIO 4.3(H) 0.0 - 4.0 08/04/2024 10:36 AM DAIRY HAND [facility] LDL/HDL 3.0(H) 0.41 - 2.13 08/04/2024 10:36 AM DAIRY HAND [facility] NON HDL CHOLESTEROL 193(H) <140 MG/DL 08/04/2024 10:36 AM [facility] 08/03/2024 2:23 PM DAIRY HAND us Sandie Arriola MD LABORATORY Final Re sult [facility] [address] [place] [address], * (ABNORMAL) CBC W/DIFF AUTOMATED (08/03/2024 2:23 PM DAIRY HAND) [facility] WBC 10.24 4.00 - 10.80 x10'3/uL 08/03/2024 7:23 PM DAIRY HAND [facility] RBC 5.08 4.10 - 5.40 x10'6/uL 08/03/2024 7:23 PM DAIRY HAND [facility] HGB 15.1 12.0 - 16.0 G/DL 08/03/2024 7:23 PM DAIRY HAND [facility] HCT 45.5 36.0 - 47.0 % 08/03/2024 7:23 PM DAIRY HAND [facility] MCV 89.6 78.0 - 100.0 FL 08/03/2024 7:23 PM DAIRY HAND [facility] MCH 29.7 27.0 - 31.0 PG 08/03/2024 7:23 PM [facility] MCHC 33.2 33.0 - 36.0 G/DL 08/03/2024 7:23 PM [facility] RDW 13.2 11.5 - 14.5 % 08/03/2024 7:23 PM [facility] PLT 384(H) 150 - 350 x10'3/uL 08/03/2024 7:23 PM [facility] MPV 9.0 7.4 - 10.4 FL 08/03/2024 7:23 PM [facility] DIFFERENTIAL TYPE AUTOMATED DIFFERENTIAL 08/03/2024 7:23 PM [facility] NEUTROPHILS % 65.1 % 08/03/2024 7:23 PM [facility] LYMPHOCYTES % 27.2 % 08/03/2024 7:23 PM [facility] MONOCYTES % 6.1 % 08/03/2024 7:23 PM [facility] EOSINOPHILS % 1.1 % 08/03/2024 7:23 PM [facility] BASOPHILS % 0.3 % 08/03/2024 7:23 PM [facility] IMMATURE GRANS % 0.2 % 08/03/2024 7:23 PM [facility] ABS. NEUTROPHILS 6.67 1.60 - 8.30 x10'3/uL 08/03/2024 7:23 PM [facility] ABS. LYMPHOCYTES 2.79 0.80 - 4.70 x10'3/uL 08/03/2024 7:23 PM [facility] ABS. MONOCYTES 0.62 0.00 - 1.50 x10'3/uL 08/03/2024 7:23 PM [facility] ABS. EOSINOPHILS 0.11 0.00 - 0.40 x10'3/uL 08/03/2024 7:23 PM DAIRY HAND [facility] ABS. BASOPHILS 0.03 0.00 - 0.20 x10'3/uL 08/03/2024 7:23 PM DAIRY HAND [facility] ABS. IMMATURE GRANULOCYTES 0.02 0.00 - 0.03 x10'3/uL 08/03/2024 7:23 PM DAIRY HAND [facility] 08/03/2024 2:23 PM DAIRY HAND Sandie Arriola MD LABORATORY Final Re sult Performing Organization Address City/[facility]/ZIP Co de Phone Number [facility] [address] [place] [address], [place] [phone] * VITAMIN D, 25 OH (08/03/2024 2:23 PM DAIRY HAND) VITAMIN D 25 HYDROXY TOTAL S/P/B 33.3 30 - 100 NG/ML 08/04/2024 10:36 AM DAIRY HAND [facility] Comment: DEFICIENT <20 INSUFFICIENT 20-30 SUFFICIENT 30-100 08/03/2024 2:23 PM DAIRY HAND Sandie Arriola MD LABORATORY Final Re sult Performing Organization Address City/[facility]/ZIP Co de Phone Number [place] [address] [place] [address], [place] [phone] * (ABNORMAL) URINALYSIS AUTO DIP (08/03/2024) COLOR (U) YELLOW YELLOW [facility] [place] Comment:sent for culture per Dr. Toby JORDAN CLOUDY(A) CLEAR [facility] [place] GLUCOSE (U) NEGATIVE(A) NEGATIVE MG/DL [facility] [place] BILIRUBIN (U) NEGATIVE NEGATIVE [facility] [place] KETONES MG/DL (U) NEGATIVE NEGATIVE MG/DL [facility] [place] SPECIFIC GRAVITY (U) 1.015 1.001 - 1.035 [facility] [place] BLOOD (U) NEGATIVE NEGATIVE [facility] [place] U PH 7.0 5.0 - 9.[address] [facility] [place] PROTEIN (U) NEGATIVE NEGATIVE mg/dL [facility] [place] UROBILINOGEN 0.2 0.2 - 1.0 EU/dL = mg/dL [facility] [place] NITRITES NEGATIVE NEGATIVE MG/DL [facility] [place] LEUKOCYTES (U) TRACE(A) NEGATIVE [address] [place] URINE SPECIMEN FROM URETH[facility] / Unknown 08/03/2024 Sandie Arriola MD URINE ORDERABLES Final R esult [facility] [place] [address] [place] [address], [place] [phone] * COLONOSCOPY GENERIC (SCAN ORDER) (11/22/2020) 11/22/2020 [facility] Scanned SCANNING Final Resu lt from Last 3 Months or Most Recently Relevant to Health Maintenance [place] [address] [place] [id number] Care Teams Director Supplier Quality Relationship Specialty Start Date End Date Sandie Arriola MD [address] [place] [address] PCP - General FAMILY PRACTICE 03/06/24 Kesha Quinones MD [address] [place] [address] Referring Physician KULWINDER 10/08/17
[2024-10-05 19:40] VITALS: BP 114/71; PULSE 95; RESP 18; TEMP 36.6; O2SAT 100
[2024-10-05 20:02] LABS: EDCOVIDSCREEN Negative (Negative); EDINFLUASCREEN Negative (Negative); EDINFLUBSCREEN Negative (Negative)
== END 2024-10-05 20:03 | disposition home or self-care (01) ==
PROVIDERS: Emergency Provider Nurse Practitioner Family
DX: J11.1 Influenza due to unidentified influenza virus with other respiratory manifestations (principal); Z20.822 Contact with and (suspected) exposure to COVID-19; F17.210 Nicotine dependence, cigarettes, uncomplicated; F17.290 Nicotine dependence, other tobacco product, uncomplicated; E66.9 Obesity, unspecified; Z68.25 Body mass index [BMI] 25.0-25.9, adult
CPT/HCPCS: 87426; 87804; 99212; G0463

== ENCOUNTER 2024-11-19 09:12 | Emergency (ER) | payer OTHER, SELFPAY ==
--- NOTE | ~2024-11-19 | US_ITS ---
EXAMINATION: US pelvic complete INDICATION: Right-sided pelvic pain. Evaluate for torsion. Comparison:No prior studies for comparison. TECHNIQUE: Multiple transabdominal sonographic images of the pelvis performed. FINDINGS: The uterus measures 8.1 x 3.4 x 4.9 cm. The endometrial complex measures 5 mm. The right ovary measures 2.8 x 2.5 x 2.2 cm and the left ovary measures 2.4 x 2 x 1.5 cm. There are small follicles in each ovary. Normal doppler signal in both ovaries. There is no free fluid in the pelvis. There are no abnormal masses seen on either side. IMPRESSION: 1. Normal pelvic ultrasound. Reviewed, dictated and finalized at location A.
--- NOTE | ~2024-11-19 | CT_ITS ---
EXAMINATION: CT abdomen pelvis w con DATE: 11/19/2024 13:20 INDICATION: Right lower quadrant pain TECHNIQUE: Computed tomography (CT) of the abdomen and pelvis was performed with 100 cc Omnipaque 350 intravenous contrast. The dose-length product was 288.67 mGy-cm. Automated exposure control and iter ative reconstruction technique were employed. COMPARISON: CT dated 11/06/2023. FINDINGS: There is dependent atelectasis. Heart size normal. No significant pleural or pericardial ef fusion. The liver, spleen, pancreas, adrenal glands and kidneys are unremarkable. Status post cholecy stectomy. Nonobstructive bowel gas pattern. No abnormal pelvic masses or fluid collections. No signif icant vascular abnormality. Fatty infiltration of the liver. No lymphadenopathy. Moderate lumbar spon dylosis. IMPRESSION: 1. No acute abdominal abnormality. Reviewed, dictated and finalized at location A.
--- NOTE | ~2024-11-19 | XR_ITS ---
XR hip RT 2V w AP pelvis 11/19/2024 10:49 Indication: Right hip pain Procedure: AP pelvis and 2 views right hip Comparison: No prior studies for comparison. Findings: Pelvic rings are intact. Sacral foramen are symmetric. Mild osteoarthritis of the hips. No fracture, subluxation or dislocation. Impression: 1: Mild osteoarthritis of the hips. Reviewed, dictated and finalized at location A. Impression: 1: Mild osteoarthritis of the hips.
--- OUTSIDE RECORDS SUMMARY | 2024-11-19 09:15 | XMS_ITS | Data Portability ---
Author Organization [facility] [place] Address [address] [place] [address] [place] [address] Care Team Providers Care Nurse First Assist Name Role Phone SUREKHA CORNELIUS Primary Care Provider Assessment No assessment recorded. Plan of Treatment Reminders Order Date Submit Date Provider Last Modified By Organization Details Last Modified Time Details Appointments None recorded. Lab test, urine [address], [address], [address], [place], [address], 4 15:04:33 hormone panel, serum or plasma [email or web address] (Lab), [address] [facility], [place], [address], 3 13:18:56 Referral None recorded. Procedures None recorded. Surgeries hysteroscop y, with endometrial ablation (SURG) 2022 024 [email or web address] Betancourt MD, [address], [place], [address], 5 16:15:34 Imaging None recorded. Medication Orders [place] 10 mg-325 mg tablet 2022 023 [facility] #[id number], [address] [facility], [place], [place], [id number], 3 13:05:21 Xanax 0.5 mg tablet 2022 023 [facility] #16585, [address] [facility], [place], [place], [id number], 3 13:05:18 ibuprofen 800 mg tablet 2022 023 [facility] #59035, [address] [facility], [place], [place], [id number], 3 13:05:17 ondansetron 8 mg disintegrat ing tablet 2022 023 [facility] #16236, [address] [facility], [place], [place], [id number], 3 13:05:17 Loestrin Fe 1/20 (28-Day) 1 mg-20 mcg (21)/75 mg (7) tablet 2022 023 [facility] #48404, [address] [facility], [place], [place], [id number], 3 13:00:18 phentermine 30 mg capsule 2022 023 [facility] #96486, [address] [facility], [place], [place], [id number], 3 13:12:27 phentermine 15 mg capsule 2022 023 [email or web address] Not available 3 22:31:02 topiramate 50 mg tablet 2022 023 [email or web address] Not available 3 15:04:14 triamcinolo ne acetonide 0.1 % topical cream 2022 023 [facility] #64867, [address] [facility], [place], [place], [id number], 3 16:46:11 Mounjaro 2.5 mg/0.5 mL subcutaneou s pen injector 2022 023 [facility] #93829, [address] [facility], [place], [place], [id number], 16:48:19 Patient TargetsNo targets recorded. Patient InstructionsNo instructions recorded. Reason for Referral None Reported. Results Created Date Observation Date Name Description Value Unit Range Abnormal Flag Note LastModifiedBy Organization Detail LastModifiedTime 02/19/2002/18/2023 SURGI JAGDISH PATHO LOGY surgical pathology SEE RESULT S BELOW CASE REPOR T: Surgi jagdish Patho logy Repor t Case: [id number] Autho wallace nolasco Provi ela: Jeannine [...] ed by Navya Ferrari on Not Available [facility] (Lab) [address], [place], [address], 02/19/2023 13:42:08 02/19/20 23 02/18/2023 pregn zulma test, urine HCG negati ve Not Available [place] [address], [place], [address], 02/18/2023 12:52:05 08/09/19 24 08/09/2023 pregn zulma test, urine HCG negati ve Not Available [place] [address], [place], [address], 08/09/2023 15:04:20 02/26/20 23 02/25/2023 MAMMO , diagn ostic , digit al, bilat eral No observ ation record ed. [facility] [place] [facility] [address], [place], [address], 03/18/2023 12:46:40 Result Notes None recorded. Procedures Surgical History Date Name Laterality Status Provider Name and Address Organization Details Recorded Time 024 Endometrial Ablation with Hysteroscopy completed Chidi Betancourt MD [address], [place], [address], [facility] 08/09/2023 17:52:17 024 Hysteroscopy completed [facility] 08/09/2023 14:35:27 024 Endometrial Ablation completed [facility] 08/09/2023 14:35:41 023 Hysteroscopy completed Chidi Betancourt MD [address], [place], [address], [facility] 02/21/2023 00:07:31 015 Removal of fallopian tube completed [facility] 12/10/2022 15:46:25 010 Cholecystectomy completed [facility] 12/10/2022 15:43:57 Imaging Results Imaging Date Name Status LastModified by Organiz ation Details LastModified Time 02/25/2023 MAMMO, diagnostic, digital, bilateral completed [facility] [address], [place], [address], 03/18/2023 12:46:40 Procedure Notes None recorded. Medical [...] Updated DateTime 02/25/2023 157.48 cm 27.4 kg/m2 09436.86 g 122 mm[Hg] 76 mm[Hg] [facility] 3 15:58:43 Date Recorded Body height Body mass index (BMI) Body weight Systolic blood pressure Diastolic blood pressure Provider Name and Address Organization Details Last Updated DateTime 03/25/2023 157.48 cm 27.4 kg/m2 97335.86 g 145 mm[Hg] 77 mm[Hg] [facility] 3 12:44:59 Date Recorded Body height Body mass index (BMI) Body weight Systolic blood pressure Diastolic blood pressure Provider Name and Address Organization Details Last Updated DateTime 04/22/2023 157.48 cm 27.6 kg/m2 35132.45 g 138 mm[Hg] 79 mm[Hg] [facility] 3 12:58:16 Date Recorded Body height Body mass index (BMI) Body weight Systolic blood pressure Diastolic blood pressure Provider Name and Address Organization Details Last Updated DateTime 07/01/2023 157.48 cm 28.5 kg/m2 36217.41 g 144 mm[Hg] 79 mm[Hg] [facility] 3 12:23:24 Date Recorded Body height Body mass index (BMI) Body weight Systolic blood pressure Diastolic blood pressure Provider Name and Address Organization Details Last Updated DateTime 08/09/2023 157.48 cm 27.8 kg/m2 61484.04 g 123 mm[Hg] 79 mm[Hg] [facility] 4 14:25:51 Social History None recorded. [...] SNOMED-CT Code Diagnosis ICD10 Code Diagnosis Note [id number] Chidi Betancourt MD [place] [address],[place] [address] 12/10/2022 15:17:26 12/10/2022 16:55:41 Abnormal uterine bleeding 7889449654 9100 N93.9 Menorrhagia 472627524 N9 2.0 [id number] [facility] [address],[place] [address] 12/17/2022 11:57:35 12/17/2022 12:39:09 Menorrhagia 443690034 N92.0 N93.9 [id number] Chidi Betancourt MD [place] [address],[place] [address] 01/07/2023 10:55:07 01/07/2023 12:35:07 Mass of right breast 6580003137 2110689 N63.10 Abnormal u terine bleeding 4984854838 9100 N93.9 Lesion of endometrium 92 71265431 9101 N85.9 47-year-ol d female with endometria [...] More than 50% was counseling . Overweight 860292711 E66 .3 Preoperative state 22686 002 Z78.9 [id number] Chidi Betancourt MD [place] [address],[place] [address] 02/18/2023 11:40:04 02/18/2023 13:50:53 Screening procedure 97930707 Z13.9 Lesion of endometrium 92 34233256 9101 N85.9 hysterosco py was performed. She tolerated well. Endocervic al and endometria l curettage performed. [id number] Chidi Betancourt MD [place] [address],[facility] [place] [address] 02/25/2023 15:39:27 02/25/2023 17:11:08 Disorder of vulva 4831868 N90.9 we 7-year-old female who underwent endometria [...] ns and warning about side effects. Prediabetes 570297153 R7 3.03 [id number] Chidi Betancourt MD [place] [address] [address] 03/25/2023 12:30:52 03/26/2023 12:47:18 Obesity 178118866 E66.9 47-year-ol d female presents for follow-up [...] ce. More than 50% was counseling . [id number] Chidi Betancourt MD [place] [address] [address] 04/22/2023 12:46:49 04/22/2023 13:38:29 Obesity 147220587 E66.9 47-year-ol d female presents for follow-up [...] ce. More than 50% was counseling . [id number] Chidi Betancourt MD [place] [address] [address] 07/01/2023 12:01:51 07/01/2023 17:28:26 Abnormal uterine bleeding 7726709345 9100 N93.9 Menorrhagia 630448710 N9 2.0 N93.9 This patient is a [...] we agreed to perform surgery. Preoperative state 16673 002 Z78.9 [id number] Chidi Betancourt MD [place] [address] [address] 08/09/2023 13:55:09 08/10/2023 09:15:44 Screening procedure 32384180 Z13.9 Menorrhagia 383253452 N9 2.0 N93.9 endometria l ablation was [...] ID Guarantor Name 02/25/2023 1 EAST - DOS PRIOR TO 2024 - [employer] - PRIME () Dru Jamison [id number] Tori Jamison 03/25/2023 1 EAST - DOS PRIOR TO 2024 - [employer] - PRIME () Dru Jamison [id number] Tori Jamison 04/22/2023 1 EAST - DOS PRIOR TO 2024 - [employer] - PRIME () Dru Jamison [id number] Tori Jamison 07/01/2023 1 EAST - DOS PRIOR TO 2024 - [employer] - PRIME () Dru Jamison [id number] Tori Jamison 08/09/2023 1 EAST - DOS PRIOR TO 2024 - [employer] - PRIME () Dru Jamison [id number] Tori Jamison Notes Date Note Type Note [...] about preiabetes. We spent over 40 minutes akqj-fp-lryd. More than 50% was counseling. Talked about calorie counting. Talked about metabolism. Chidi Betancourt MD [address], [place], [address], [facility] 02/25/2023 17:07:44 03/25/2023 text/html 47-year-old [place] presents for follow-up on weight management. We discussed treatment options. She is unable to get the DLP 1 agonist. They are in the process of being approved are denied. Most likely denied. We agreed to start phentermine topiramate. Her weight has been stable for some time. We spent over 20 minutes dfbj-fm-hona. More than 50% was counseling. Chidi Betancourt MD [address], [place], [address], [facility] 03/25/2023 22:28:31 04/22/2023 text/html 47-year-old [place] presents for follow-up on weight management. We discussed treatment options. She is unable to get the DLP 1 agonist. They are in the process of being approved are denied. Most likely denied. We agreed to start phentermine topiramate. Her weight has been stable for some time. We spent over 20 minutes rvlj-hm-thjs. More than 50% was counseling. Chidi Betancourt MD [address], [place], [address], [facility] 04/22/2023 13:13:29 07/01/2023 text/html This patient [...] outcomes. Chidi Betancourt MD [address], [place], [address], [facility] 07/01/2023 17:18:00 08/09/2023 text/html 48-year-old fema le with menorrhagia presents for endometrial ablation. She understands the procedure. Was explained to her in detail. She understands the risks, benefits, and alternatives. Chidi Betancourt MD [address], [place], [address], [facility] 08/09/2023 17:53:22 OBGyn Episode Ob Episode Information Episode Created Date Number of Fetuses Patient Bloodtype Patient rh Status Prepregnancy Weight lbs Domestic Partner Domestic Partner Phone Father Name Clinical Field Specialist Status 12/11/19 23 1 CLOSED Fetus Data [...] Domestic Partner Domestic Partner Phone Father Name Clinical Field Specialist Status 12/11/19 1 CLOSED Fetus Data First Name Last [...] Domestic Partner Domestic Partner Phone Father Name Clinical Field Specialist Status 12/11/19 23 1 CLOSED Fetus Data First Name Last Name Admitted to NICU Weight (g) Sex Living Outcome Pediatric Complications Fetus ID Race Codes Race Delivery Type , Induced Colten Calculation Initial Colten Date Initial Exam [...]
--- OUTSIDE RECORDS SUMMARY | 2024-11-19 09:16 | XMS_ITS | Clinical Summary ---
Author Organization [facility] Address [facility] [place] [address] Care Team Providers Care Nurse Chemical Dependency Name Role Phone Kesha Quinones MD Unavailable [phone] Sandie Arriola MD Primary Care Provider + [...] Date Panic disorder 03/06/2024 Moderate episode of recurrent major depressive d isorder 03/06/2024 Migraine with aura 03/06/2024 Overview (03/06/2024): [...] (03/06/2024): Psychiatry is managing her trazodone. 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 Managing with symptoms without any intervention at this time. Resolved Problems Problem Noted Date Diagnosed Date Resolved Date Condition influencing health status 02/29/2024 03/06/2024 Encounters Date Type Department Care Team Description 08/24/2024 Telephone [facility] Medicine - [place] [address] [facility] [address] [place] [address] Sandie Arriola MD Question from Last 3 Months Immunizations Immunization Administration Dates Next Due H1N1 Intranasal 2009 Influenza 08/29/2009 Hepatitis A 10/30/2004 Hepatitis A [...] Date Smoking Tobacco: Every Day Cigarettes 1 26.1 Started: 1991; L ast attempted to quit: 2015 Electronic Cigarettes Passive Smoke Exposure: Past Smokeless [...] Sex Assigned at Female 08/15/2024 8:20 AM RN MILITARY Legal Sex Female 8:26 PM CDT Gender Identity Not on file Sexual Orientation Not on file Last Filed Vital Signs Vital Sign Reading Time Taken Comments Blood Pressure 126/75 08/14/2024 1:12 PM RN MILITARY Pulse 78 08/14/2024 1:12 PM RN MILITARY Temperature 36.4 C (97.6 F) 08/14/2024 1:12 PM RN MILITARY Respiratory Rate 17 04/24/2024 10:30 AM CDT Oxygen Saturation 97% 08/14/2024 1:12 PM RN MILITARY Inhaled Oxygen Concentration - - Weight 65.8 kg (145 lb) 08/14/2024 1:12 PM RN MILITARY Height 156.2 cm (5' 1.5 ) 08/14/2024 1:12 PM RN MILITARY Body Mass Index 26.95 08/14/2024 1:12 PM RN MILITARY Plan of Treatment Upcoming Encounters Date Type Department Care Team (Late st Contact Info) Description 03/08/2025 9:00 AM CDT Allied Health/Nurse Visit [address] [address] Sandei Arriola MD [address] [facility] [address] [place] [phone] 03/15/2025 9:40 AM CDT Office Visit [address] [id number] Sandie Arriola MD [address] [facility] [address] [place] [phone] Health Maintenance Due Date Last Done Comments Cervical Cancer Screening Pa p Smear (Age 30 to 64) Every 3 Years 1977 Hepatitis C 1995 Pneumococcal Vaccine: Pediatrics (0 to 5 Years) and At-Risk Patients (6 to 49 Years) (1 of 2 - PCV) 1996 Cervical Cancer Screening Pa p with HPV Testing (Age 30 to 64) Every 5 Years 2007 Cervical Cancer Screening wi th HPV 2007 Hepatitis B Vaccines (3 of 3 - 19+ 3-dose series) 10/02/2008 07/05/2008, 04/04/2008 Mammogram Screening 2017 COVID-19 Vaccine (3 - 2023-2 5 season) 2024 09/11/2021, 08/14/2021 Annual Physical 03/06/2025 03/06/2024 Colorectal Cancer Screening Colonoscopy (10 Years) 11/22/2030 11/22/2020 DTaP, Tdap and Td Vaccines ( 3 - Td or Tdap) 11/30/2033 12/01/2023, 11/20/2013 PHQ-2 (Physician [place]) Completed 08/03/2024 Meningococcal B Vaccine Aged Out No l onger eligible based on patient's age to complete this topic Meningococcal Vaccine Aged Out No willow edvin eligible based on patient's age to complete this topic RSV Immunizations Under 20 Months Aged Out No longer eligible b ased on patient's age to complete this topic Procedures Procedure Name Priority Date/Time Associated Diagnosis Comments COLONOSCOPY GENERIC (SCAN ORDER) 11/22/2020 from Last 3 Months or Most Recently Relevant to Health Maintenance Results * COLONOSCOPY GENERIC (SCAN ORDER) (11/22/2020) 11/22/2020 [facility] Scanned SCANNING Final Resu lt from Last 3 Months or Most Recently Relevant to Health [place] [address] [place] [id number] Care Teams Nurse Chemical Dependency Relationship Specialty Start Date End Date Sandie Arriola MD [address] [place] [phone] PCP - General FAMILY PRACTICE 03/06/24 Kesha Quinones MD [address] [place] [address] Referring Physician KULWINDER 10/08/17
--- OUTSIDE RECORDS SUMMARY | 2024-11-19 09:16 | XMS_ITS | Continuity of Care Document ---
Author Name [facility] Organization [facility] Care Team Providers Care Helicopter Engineer Name Role Phone [facility] Unavailable Unavailable Problems Combined list of problems from Department of Defense and Veterans Affairs facilities. It does not include entries that were removed or entered in error. Problem Status Onset Date Problem Type Date of Resolution Comments Source Irritable bowel syndrome with diarrhea Active 6 Condition DoD Adjustment disorder with mixed anxiety and depressed mood Active Condition DoD TENOSYNOVITIS De QUERVAIN'S Active Condition DoD RHINITIS Inactive Condition DoD joint pain in the right hip Inactive Condition [facility] visit for: exam 2nd trimester (at ____weeks) Inactive Condition DoD diarrhea Inactive Condition DoD SECONDARY INSOMNIA Inactive Condition Do D Inquiry And Counseling: Contraceptive Practices Active Condition [facility] ELDERLY MULTIGRAVIDA (35 or older at delivery) Inactive Condition DoD UPPER RESPIRATORY INFECTION Inactive Condition DoD BACKACHE Active Condition DoD COMMON COLD Inactive Condition DoD CONSTIPATION Inactive Condition [facility] visit for: exam high-risk elderly multigravida Inactive Condition DoD constipation Inactive Condition DoD nausea Inactive Condition DoD Urine Test Inactive Condition DoD RHINOSINUSITIS Inactive Condition [facility] Outpatient Physician Consultation Inactive Condition DoD CONDITIONS INFLUENCING HEALTH STATUS Active Condition DoD CERVICALGIA Active Condition [facility] visit for: screening exam for malignant neoplasm cervix Inactive Condition DoD CYSTITIS ACUTE Inactive Condition DoD FEMALE PELVIC PAIN Active Condition DoD ENDOMETRIOSIS Active Condition DoD nonmenstrual bleeding Active Condition DoD Test Inactive Condition DoD ACUTE BRONCHITIS Inactive Condition [facility] visit for: issue repeat prescription for medication Inactive Condition DoD ADJUSTMENT DISORDER WITH ANXIETY Inactive Condition DoD SINUSITIS Active Condition DoD headache Inactive Condition DoD CYSTITIS Inactive Condition DoD REACTIVE CONFUSION Inactive Condition Do D ESOPHAGEAL REFLUX Active Condition DoD NICOTINE DEPENDENCE Active Condition Do D TENOSYNOVITIS HAND / WRIST Active Condition DoD Test Negative Inactive Condition DoD sore throat Inactive Condition [facility]necologic Services Contraceptive Management Inactive Condition DoD abdominal pain Active Condition DoD Intervention And Counseling On Cessation Of Tobacco Use Inactive Condition [facility]nec[facility] Intrauterine Device (IUD) Removal Inactive Condition DoD REFRACTIVE ERROR - HYPERMETROPIA Active Condition DoD DRY EYE SYNDROME Active Condition DoD DYSHIDROSIS Active Condition [facility] visit for: contraceptive surveillance Inactive Condition DoD LUMBAGO Active Condition [facility] Gynecologic Services Intrauterine Device (IUD) Insertion Inactive Condition DoD NORMAL ROUTINE HISTORY AND PHYSICAL - LABOR AND DELIVERY Inactive Condition [facility] visit for: exam supervision Inactive Condition DoD (Lower) Leg Localized Swelling Inactive Condition [facility] visit for: exam Inactive Condition DoD NORMAL CHECKUP - THIRD TRIMESTER Inactive Condition [facility] visit for: exam high-risk Inactive Condition DoD lower back pain Inactive Condition DoD ANXIETY DISORDER NOS Inactive Condition DoD Vaccines Prophylactic Need Against Influenza Inactive Condition DoD current smoker Active Condition DoD Oral Glucose Tolerance Test 2-Hour Value Between 140 - 200 Inactive Condition [facility] NORMAL CHECKUP - SECOND TRIMESTER Inactive Condition DoD NORMAL Inactive Condition DoD PSYCHIATRIC DIAGNOSIS OR CONDITION DEFERRED ON AXIS I Inactive Condition DoD DEPRESSION Inactive Condition DoD Inactive Condition DoD HYPEREMESIS GRAVIDARUM Inactive Condition DoD Patient Counseling: Inactive Condition D Supervision Of Normal Inactive Condition [facility] visit for: exam 1st trimester (at ____weeks) Inactive Condition DoD nausea with vomiting Inactive Condition [facility] IRRITABLE BOWEL SYNDROME Active Condition [facility] visit for: administrative purpose Inactive Condition [facility] smoking cigarettes Active Condition [facility] DYSMENORRHEA Active Condition DoD DYSFUNCTIONAL UTERINE BLEEDING Active Condition DoD feared medical condition not demonstrated Inactive Condition [facility] visit for: screening exam malignant neoplasm breast Inactive Condition DoD ROUTINE GYNECOLOGICAL EXAM WITH CERVICAL PAP SMEAR Inactive Condition DoD VAGINAL DISCHARGE Inactive Condition DoD DYSPAREUNIA Active Condition DoD pain during urination (dysuria) Active Condition DoD DERMATOPHYTOSIS TINEA PEDIS Inactive Condition DoD DERMATOPHYTOSIS TINEA MANUUM Active Condition [facility] visit for: issue repeat prescription Inactive Condition [facility] Patient Education - Medication Inactive Condition DoD Need For Vaccination Hepatitis B Inactive Condition DoD anxiety Inactive Condition Pt with anxiety disorder that has failed every SSRI and Wellbutrin and per patient. Pt does not tolerate klonopin. Will give trial of low dose Xanax. Follow up as needed. [facility] NORMAL PRE-EMPLOYMENT SCREENING EXAMINATION Inactive Condition Pt here for pre-work physical. [...] LUPIN PHARMACEU, 8.5 g CANISTER Cancele d [id number] : 2023 0 Pharmac y Data Transac tion Service Facilit y AMITRIPTYLI NE HCL (amitriptyl ine HCl), 25 MG, TABLET, ORAL, [employer], 1000 ea. BOTTLE Active [id number] 2023 90 Pharmac y Data Transac tion Service Facilit y AMITRIPTYLI NE HCL (amitriptyl ine HCl), 25 MG, TABLET, ORAL, [employer], 1000 ea. BOTTLE Active [id number] 2023 90 Pharmac y Data Transac tion Service Facilit y AMITRIPTYLI NE HCL (amitriptyl ine HCl), 25 MG, TABLET, ORAL, [employer], 1000 ea. BOTTLE Active [id number] 2023 90 Pharmac y Data Transac tion Service Facilit y CYCLOBENZAP RINE HCL (cyclobenza mitchell HCl), 10 MG, TABLET, ORAL, [employer], 1000 ea. BOTTLE Cancele d [id number] : 2023 0 Pharmac y Data Transac tion Service Facilit y CYCLOBENZAP RINE HCL (cyclobenza mitchell HCl), 10 MG, TABLET, ORAL, [employer] [facility], 1000 ea. BOTTLE Active [id number] 2023 14 Pharmac y Data Transac tion Service Facilit y DICYCLOMINE HCL (DICYCLOMIN E HCL), 10MG, CAPSULE, ORAL, [facility], 100 ea. BOTTLE Cancele d [id number] : 2023 0 Pharmac y Data Transac tion Service Facilit y DICYCLOMINE HCL (DICYCLOMIN E HCL), 10MG, CAPSULE, ORAL, [facility], 100 ea. BOTTLE Active [id number] 2023 240 Pharmac y Data Transac tion Service Facilit y FLUOXETINE HCL (FLUOXETINE HCL), 20MG, CAPSULE, ORAL, [employer], 1000 ea. BOTTLE Active [id number] 2023 90 Pharmac y Data Transac tion Service Facilit y IBUPROFEN (ibuprofen) , 800 MG, TABLET, ORAL, [facility]OB[employer]O [facility], 500 ea. BOTTLE Cancele d [id number] : 2023 0 Pharmac y Data Transac tion Service Facilit y IBUPROFEN (ibuprofen) , 800 MG, TABLET, ORAL, [employer] [facility]ARM, 500 ea. BOTTLE Active [id number] 2023 20 Pharmac y Data Transac tion Service Facilit y METHYLPREDN ISOLONE (methylpred nisolone), 4 MG, TAB DS PK, ORAL, [employer], 21 ea. DOSE-PACK Active [id number] 2023 21 Pharmac y Data Transac tion Service Facilit y ONDANSETRON ODT (ONDANSETRO N), 4 MG, TAB RAPDIS, ORAL, [employer] [facility], 30 ea. BLIST PACK Cancele d [id number] : 2023 0 Pharmac y Data Transac tion Service Facilit y ONDANSETRON ODT (ONDANSETRO N), 4 MG, TAB RAPDIS, ORAL, [employer] [facility], 30 ea. BLIST PACK Active [id number] 2023 10 Pharmac y Data Transac tion Service Facilit y PANTOPRAZOL E SODIUM (PANTOPRAZO LE SODIUM), 20 MG, TABLET DR, ORAL, MYLAN, 90 ea. BOTTLE Cancele d [id number] : 2023 0 Pharmac y Data Transac tion Service Facilit y PANTOPRAZOL E SODIUM (PANTOPRAZO LE SODIUM), 20 MG, TABLET DR, ORAL, MYLAN, 90 ea. BOTTLE Active [id number] 2023 30 Pharmac y Data Transac tion Service Facilit y phentermine 15 mg capsule See Instruct ions, # 30 EA, 0 total refill(s ), Hard Stop Complet ed 09/21/2023 3 2023 30.0 Ambulat ory Pharmac y SUMATRIPTAN SUCCINATE (sumatripta n succinate), 100 MG, TABLET, ORAL, 'S LAB, 27 ea. BLIST PACK Active [id number] 2023 9 Pharmac y Data Transac tion Service Facilit y SUMATRIPTAN SUCCINATE (sumatripta n succinate), 100 MG, TABLET, ORAL, 'S LAB, 27 ea. BLIST PACK Cancele d [id number] : 2023 0 Pharmac y Data Transac tion Service Facilit y SUMATRIPTAN SUCCINATE (sumatripta n succinate), 100 MG, TABLET, ORAL, 'S LAB, 27 ea. BLIST PACK Active [id number] 2023 9 Pharmac y Data Transac tion Service Facilit y SUMATRIPTAN SUCCINATE (sumatripta n succinate), 100 MG, TABLET, ORAL, 'S LAB, 27 ea. BLIST PACK Active [id number] 2023 9 Pharmac y Data Transac tion Service Facilit y topiramate [Exelan] 50 mg tablet See Instruct ions, # 90 EA, 0 total refill(s ), Hard Stop Complet ed 03/24/2024 3 2023 90.0 Ambulat ory Pharmac y TRAZODONE HCL (trazodone HCl), 50 MG, TABLET, ORAL, [facility], 100 ea. BOTTLE Cancele d [id number] : 2023 0 Pharmac y Data Transac tion Service Facilit y TRAZODONE HCL (trazodone HCl), 50 MG, TABLET, ORAL, [facility] [facility]ARM, 100 ea. BOTTLE Cancele d [id number] : 2023 0 Pharmac y Data Transac tion Service Facilit y TRAZODONE HCL (trazodone HCl), 50 MG, TABLET, ORAL, [employer] [facility], 100 ea. BOTTLE Active [id number] 2023 30 Pharmac y Data Transac tion Service Facilit y TRAZODONE HCL (trazodone HCl), 50 MG, TABLET, ORAL, [employer] PHARM, 100 ea. BOTTLE Active [id number] 2023 30 Pharmac y Data Transac tion Service Facilit y TRAZODONE HCL (trazodone HCl), 50 MG, TABLET, ORAL, [facility] [facility], 100 ea. BOTTLE Active [id number] 2023 30 Pharmac y Data Transac [...] } Drug allergy (disorder) Rash active [address] [place] [address] ([facility]) OTHER {Cla } Propensity to adverse reactions to drug Rash Active 3 LATEX Unknown Organiza tion PHENERGAN (PROMETHAZIN E HCL) Drug allergy (disorder) Unknown active [address] [place] [address]) promethazine Propensity to adverse reactions to drug Unknown Active 4 Unknown Organiza tion PROZAC (FLUOXETINE HCL) Drug allergy (disorder) Diarrhea active [address] [place], [place] [address]B [facility]) REGLAN (METOCLOPRAM JENNY HCL) Drug allergy (disorder) Depression active [address] [place] [address]) sertraline Propensity to adverse reactions to drug Depression Active 4 Unknown Organiza tion ZOLOFT (SERTRALINE HCL) Drug allergy (disorder) Depression active [address] [place] [address]) Immunizations Combined list of available immunizations from the Department of Defense and Veterans Affairs facilities. Immunization Series Date Given Administered By Site Reaction Lot Number CVX Code Drug Backup Sawyer Status Comments Source COVID-19, mRNA, LNP-S, PF, 100 mcg or 50 mcg dose 2021 Adi SÁNCHEZ [employer] (MOD) Not Given COVID-19, mRNA, LNP-S, PF, 100 mcg or 50 mcg dose DoD influenza, injectable, quadrivalent- pf 2017 zzLef t Arm [id number] [employer] complet ed influenza , injectabl e, quadrival ent-pf 05/11/18 Given Ambulat ory Pharmac y Influenza, injectable, quadrivalent, preservative free 1 2017 Unknown, Provider [id number] 150 [employer] (SEQ) complet ed Influenza , injectabl e, quadrival ent, preservat rachle free DoD influenza, seasonal, injectable-pf 2015 zzLef t Arm [id number] 140 [employer] complet ed influenza , seasonal, injectabl e-pf 07/15/16 Given Ambulat ory Pharmac y Influenza, seasonal, injectable, preservative free 1 2015 Unknown, Provider [id number] 140 [employer] (SEQ) complet ed Influenza , seasonal, injectabl e, preservat rachel free DoD influenza, injectable, quadrivalent 2013 zef t Arm [id number] 158 [employer] complet ed influenza , injectabl e, quadrival ent 06/07/14 Given Ambulat ory Pharmac y influenza, injectable, quadrivalent, contains preservative 1 2013 Unknown, Provider [id number] 158 (IDB) complet ed influenza , injectabl e, quadrival ent, contains preservat rachel DoD tetanus, diphtheria, acellular pertu is 2013 [facility] Arm [id number] [facility] tetanus, diphtheri a, acellular pertussis 11/20/13 Given Ambulat ory Pharmac y tetanus toxoid, reduced diphtheria toxoid, and acellular pertu is vaccine, adsorbed 1 2013 Unknown, Provider [id number] 115 [facility] ([facility]) complet ed tetanus toxoid, reduced diphtheri a toxoid, and acellular pertussis vaccine, adsorbed DoD influenza, seasonal, injectable-pf 2013 zzLef t Arm [id number] 140 sanofi pasteur complet ed influenza , seasonal, injectabl e-pf 08/28/13 Given Ambulat ory Pharmac y Influenza, seasonal, injectable, preservative free 5 2013 Unknown, Provider [id number] 140 Sanofi Pasteur ([facility]) complet ed Influenza , seasonal, injectabl e, preservat rachel free DoD influenza, seasonal, injectable-pf 2011 zzRig ht Arm [id number] 140 sanofi pasteur complet ed influenza , seasonal, injectabl e-pf 06/10/12 Given Ambulat ory Pharmac y Influenza, seasonal, injectable, preservative free 4 2011 Unknown, Provider [id number] 140 Sanofi Pasteur (PMC) complet ed Influenza , seasonal, injectabl e, preservat rachel free DoD influenza, seasonal, injectable-pf 2010 zzLef t Arm [id number] 140 sanofi pasteur complet ed influenza , seasonal, injectabl e-pf 06/15/11 Given Ambulat ory Pharmac y Influenza, seasonal, injectable, preservative free 3 2010 Unknown, Provider [id number] 140 Sanofi Pasteur ([facility]) complet ed Influenza , seasonal, injectabl e, preservat rachel free DoD influenza virus vaccine,split 2009 zzRig Arm [id number] 15 sanofi pasteur complet ed influenza virus vaccine,s plit 06/30/10 Given Ambulat ory Pharmac y influenza virus vaccine, split virus (incl. purified surface antigen)-reti red CODE 1 2009 Unknown, Provider [id number] 15 Sanofi Pasteur ([facility]MC) complet ed influenza virus vaccine, split virus (incl. purified surface antigen)- retired CODE [facility] Novel Influenza-H1N 1-09,live virus,nasal 2009 [id number] 125 [employer] comple t ed Novel Influenza -[id number], live virus,rafal al 08/29/09 Given Ambulat ory Pharmac y Novel Influenza-H1N 1-09, live virus for nasal administratio n 1 2009 Unknown, Provider [id number] 125 [employer] (MED) complet ed Novel Influenza -F8L7-85, live virus for nasal administr ation DoD influenza virus vaccine,split 2008 zzLef t Arm [id number] 15 sanofi pasteur complet ed influenza virus vaccine,s plit 05/16/09 Given Ambulat ory Pharmac y influenza virus vaccine, split virus (incl. purified surface antigen)-reti red CODE 1 2008 Unknown, Provider [id number] 15 Sanofi Pasteur ([facility]) complet ed influenza virus vaccine, split virus (incl. purified surface antigen)- retired CODE DoD hepatitis B adult vaccine 2007 zzLef [...] dosage 1 2007 Unknown, Provider [id number] 43 [employer] [...] ADM Date DC Date Status Disposition Source [address] [place] [address] [place] [employer] [facility]Sco tt [facility] Hooked Blue) OUTPATIENT [id number] [phone] physica l to go to school for medical assista ALDO Johnson 04/04 Released w/o Limitations [address] [place] [address] [place] [employer] [facility])(S [facility] [employer] Tm Blue) [address] [place] [address] [place] [employer] [facility])(Sco tt [facility] Hooked Blue) TELE CONSULT [id number] Medicat ion Request HARDY GLOVER 05/[address] [place] [address] [place] [employer] [facility])(S [facility] Mindie Tm Blue) [address] [place] [address] [place] [employer] [facility])(Sco tt [facility] Hooked Blue) OUTPATIENT [id number] rash on hand... .[id number] [phone] ADELINE GU 07/05 Released w/o Limitations [address] [place] [address] [place] [employer] [facility])(S [facility] FAMRES Tm Blue) [address] [place] [address] [place] [employer] [facility])(Sco tt [facility] Mindie Tm Blue) TELE CONSULT [id number] Medicat ion Request ALDO DAY 08/[address] [place] [address] [place] [employer] [facility])(S cott [facility] FAMRES Tm Blue) [employer] [place] ([facility])(Sco tt [facility] FAMRES Tm Blue) OUTPATIENT [id number] annual pap.... [id number] JODIEWANDA Narvaez 09/18 Released w/o Limitations [employer] [place] ([facility])(S cott [facility] FAMRES Tm Blue) Medical [facility] [place] ([facility])(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) OUTPATIENT [id number] feared medical conditi on not demonst rated MARGARETTE TABARES 10/03 Released w/o Limitations [employer] ([facility])(G ynecolo gy) [employer] ([facility])(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) TELE CONSULT [id number] us and lab results MARGARETTE TABARES 10/18 [employer] [place] ([facility])(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) [facility] Medical [facility] [place] ([facility])(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) OUTPATIENT [id number] preg test CHETNA BARKER 11/02 Released w/o Limitations [employer] [place] ([facility])(G ynecolo gy) [facility] [employer] [place] [employer] ([facility])(Sco tt [facility] FAMRES Tm Blue) TELE CONSULT [id number] Medicat ion Request ALDO DAY 11/05 [employer] [place] ([facility])(S cott [facility] FAMRES Tm Blue) [employer] [place] [employer] ([facility])(Sco tt [facility] Fam Res Tm Green) OUTPATIENT [id number] medicat ion/OB questio AFSHIN Martin 11/09 Released w/o Limitations [employer] ([facility]S cott [facility] Fam Res Tm Green) [facility] [employer] ([facility])(Sco tt [facility] FAMRES Tm Blue) OUTPATIENT [id number] initiat e OB care ANNE HURTADO 11/12 Released w/o Limitations [employer] ([facility])(S cott [facility] FAMRES Tm Blue) [employer] ([facility])(Sco tt [facility] FAMRES Tm Blue) OUTPATIENT [id number] early pregnan cy; hyperem ADELINE Vidal 11/19 Released w/o Limitations [employer] ([facility])(S cott [facility] FAMRES Tm Blue) [employer] ([facility])(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) OUTPATIENT [id number] transfe r in from [facility] EDC [id number] ZACK TOWNSEND 12/17 Released w/o Limitations [employer] ([facility])(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) [employer] ([facility])(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) OUTPATIENT [id number] new ob - edc jul 10 JE LUNA 01/02 Released w/o Limitations [employer] ([facility])(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) [employer] ([facility])(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) TELE CONSULT [id number] referra JE Mathews 01/03 [employer] ([facility])(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) [employer] ([facility])(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) TELE CONSULT [phone] Needs note from doctor TRUNG HALEY 01/16 [employer] ([facility])(G ynecolo gy) [employer] ([facility])(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) OUTPATIENT [id number] 16 wk edc jul 10 JE LUNA 01/23 Released w/o Limitations [employer] ([facility])(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) [employer] ([facility])(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) TELE CONSULT [phone] request ing letter TRUNG HALEY 01/23 [employer] ([facility])(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) [employer] ([facility])(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) TELE CONSULT [id number] ua symptom s TRUNG HALEY 02/05 [employer] ([facility])(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) [employer] ([facility])(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) OUTPATIENT [id number] NIC - EDC jul 10 ZACK TOWNSEND 02/20 Released w/o Limitations [employer] ([facility])(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) [employer] ([facility])(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) TELE CONSULT [id number] JE LUNA 02/28 [facility] [employer] ([facility])(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) [facility] [employer] ([facility])(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) TELE CONSULT [id number] OB w/ contrac mary N/V KELSIE INIGUEZ 03/11 [facility] [employer] ([facility])(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) [facility] [employer] ([facility])(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) OUTPATIENT [id number] nic - edc jul 10 MARGARETTE TABARES 03/25 Released w/o Limitations [facility] [employer] ([facility])(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) [facility] [employer] ([facility])(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) TELE CONSULT [phone] request for med refill CESARIO JEFFERY 04/09 [facility] [employer] ([facility])(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) [facility] [employer] ([facility])(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) TELE CONSULT [id number] lab result MARGARETTE TABARES 04/12 [facility] [employer] ([facility])(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) [facility] [employer] ([facility])(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) OUTPATIENT [id number] nic - edc jul 10 CESARIO JEFFERY 04/16 Released with Work/Duty Limitations [facility] [employer] ([facility])(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) [facility] [employer] ([facility])(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) TELE CONSULT [id number] test results VERONICA JOHNS 04/30 [facility] [employer] ([facility])(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) [facility] [employer] ([facility])(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) OUTPATIENT [id number] nic - edc jul 10 - discuss deliver y BRIE Nicole 05/16 Released w/o Limitations [facility] [employer] ([facility])(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) [facility] [employer] ([facility]Sco tt [facility] Fam Res Tm Green) OUTPATIENT [id number] flu shot for high risk pt AL TALBOT 05/16 Released w/o Limitations [facility] [employer] ([facility])(S cott [facility] Fam Res Tm Green) [employer] ([facility])(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) TELE CONSULT [id number] flu symptom s TRUNG HALEY 05/28 [employer] ([facility])(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) [employer] ([facility])(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) OUTPATIENT [id number] NIC - EDC JUL 10 JE ARIZA 06/03 Released w/o Limitations [employer] ([facility])(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) [facility] [employer] ([facility])(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) OUTPATIENT [id number] NIC - EDC JUL 10 BRIE CRUZ 06/11 Released w/o Limitations [facility] [employer] ([facility])(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) [facility] [employer] ([facility])(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) OUTPATIENT [id number] nic - edc jul 10 JE ARIZA 06/18 Released w/o Limitations [employer] ([facility])(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) [facility] [employer] [facility])(Lion e Managemen t) TELE CONSULT [id number] CM-Hosp ital Admissi on NIC STYLESIN 06/25 [facility] [employer] ([facility])(C ase Managem ent) [facility] [employer] ([facility])(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) TELE CONSULT [id number] burning during urinati on DORI DAVENPORT L 07/01 [facility] [employer] ([facility])(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) [facility] [employer] ([facility])(Sco [facility] FAMRES Tm Blue) OUTPATIENT [id number] lactati on consult from WANDA Shine 07/05 Released w/o Limitations [employer] ([facility])(S cott [facility] FAMRES Tm Blue) [facility] [employer] ([facility])(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) OUTPATIENT [id number] 6 wk pp - deliver ed Jun 10 BRIE CRUZ 08/05 Released w/o Limitations [facility] [employer] ([facility])(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) [employer] ([facility])(Sco tt [facility] FAMRES Tm Blue) TELE CONSULT [id number] med refill ALDO DAY 08/[address] [place] [address] [employer] ([facility])(S cott [facility] FAMRES Tm Blue) [address] [place] [address] [employer] ([facility])(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) OUTPATIENT [id number] james denney on BRIE CRUZ 08/20 Released w/o Limitations [address] [place] [address] [employer] ([facility])(G ynecolo gy) [address] [place] [address] [employer] ([facility])(Sco tt [facility] FAMRES Tm Blue) OUTPATIENT [id number] dry hands and feet cell# [id number] [phone] LEXY BRICENO 08/29 Released w/o Limitations [address] [place] [address] [employer] ([facility])(S cott [facility] FAMRES Tm Blue) [address] [place] [address] [employer] [facility])(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) TELE CONSULT [id number] some concern s with JE GALE 09/[address] [place] [address] [employer] ([facility])(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) [address] [place] [address] [employer] ([facility])(Sco tt [facility] FAMRES Tm Blue) OUTPATIENT [id number] fu left hand [phone] VASU CARPENTER 10/18 Released w/o Limitations [address] [place] [address] [employer] ([facility])(S cott [facility] FAMRES Tm Blue) [address] [place] [address] [employer] [facility])(Hubert matology) OUTPATIENT [id number] DYSHIDR MONI DILL 11/08 Released w/o Limitations [address] [place] [address] [employer] ([facility])(D susana woo) [address] [place] [address] [employer] ([facility])(Sco tt [facility] FAMRES Tm Blue) TELE CONSULT [id number] refill VASU Petty 12/[address] [place] [address] [employer] ([facility])(S cott [facility] FAMRES Tm Blue) [address] [place] [address] [employer] [facility])(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) TELE CONSULT [id number] appt VERONICA JOHNS 12/[address] [place] [address] [employer] ([facility])(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) [address] [place] [address] [employer] [facility])(Opt ometry) OUTPATIENT [id number] eye exam... 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) OUTPATIENT [id number] iud removal BRIE CRUZ 01/14 Released w/o Limitations [address] [place] [address] [employer] [facility])(G ynecolo gy) [address] [place] [address] [employer] [facility])(Sco tt [facility] FAMRES Tm Blue) OUTPATIENT [id number] discuss quittin g smoking /ear acupunt ure ALDO DAY 01/24 Released w/o Limitations [facility] [employer] [facility])(S cott [facility] FAMRES Tm Blue) [address] [place] [address] [employer] [facility])(Sco tt [facility] FAMRES Tm Blue) TELE CONSULT [id number] Medical Inquiry ALDO DAY 03/[address] [place] [address] [employer] [facility])(S cott [facility] FAMRES Tm Blue) [address] [place] [address] [place] [employer] [facility])(Sco tt [facility] FAMRES Tm Blue) OUTPATIENT [id number] f/u ibs/gal lbladde r ALDO DAY 04/15 Released w/o Limitations [address] [place] [address] [employer] [facility])(S cott [facility] FAMRES Tm Blue) [address] [place] [address] [employer] [facility])(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) OUTPATIENT [id number] bp check and review bcp - [phone] BRIE CRUZ 04/17 Released w/o Limitations [address] [place] [address] [employer] [facility])(G ynecolo gy) [address] [place] [address] [employer] [facility])(Fam jesus Med Tm B Non-AD BCC) OUTPATIENT [id number] Congest ion [phone] MONI BOSS 08/05 Released w/o Limitations [address] [place] [address] [employer] ([facility])(F amily Med Tm B Non-AD BCC) [address] [place] [address] [employer] [facility])(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 SIDDHARTH CURTIS 08/[address] [place] [address] [place] [facility])(W arrior Op Med Cln Tm A Ad) [address] [place] [address] [place] [facility])(Fam jesus Med Tm B Non-AD BCC) OUTPATIENT [id number] wrist pain [phone] EFREN MAYA 09/17 Released w/o Limitations [address] [place] [address] [place] [facility])(F amily Med Tm B Non-AD BCC) [address] [place] [address] [place] [facility])(War rior Op Med Cln Tm A Ad) OUTPATIENT [id number] feeling nervous all the time [phone] EFREN MAYA 02/11 Released w/o Limitations [address] [place] [address] [place] [facility]W arrior Op Med Cln Tm A Ad) [address] [place] [address] [place] [facility])(War rior Op Med Cln Tm A Ad) OUTPATIENT [id number] abd pain [phone] EFREN MAYA 04/27 Released w/o Limitations [address] [place] [address] [place] [facility])(W arrior Op Med Cln Tm A Ad) [address] [place] [address] [place] [facility])(War rior Op Med Cln Tm A Ad) TELE CONSULT [id number] Lab Result Review results with patient EFREN MAYA 04/[address] [place] [address] [place] [facility]W arrior Op Med Cln Tm A Ad) [address] [place] [address] [place] [facility])(War rior Op Med Cln Tm A Ad) TELE CONSULT [id number] Notes Entered by: GENA MARTE 17 Dec 2011 1237 ------- ------- ------- ------- -- Tcon for possibl e sinus infecti on CHANCE Maya ph [phone] EVONNE Harrison 12/[address] [place] [address] [place] [facility])(W arrior Op Med Cln Tm A Ad) [address] [place] [address])(War rior Op Med Cln Tm A Ad) OUTPATIENT [id number] sinus infecti on [id number] EFREN MAYA 12/23 Released w/o Limitations [address] [place] [address])(W arrior Op Med Cln Tm A Ad) [address] [place] [address])(War rior Op Med Cln Tm A Ad) TELE CONSULT [id number] Notes Entered by: Duglas SILVESTRE 09 Mar 2012 1342 ------- ------- ------- ------- -- Med refill Nexium 40 mg daily Lance /byron [id number] ANDRAE SIMS 03/[address] [place] [address])(W arrior Op Med Cln Tm A Ad) [address] [place] [address])(War rior Op Med Cln Tm A Ad) OUTPATIENT [id number] cough congest ion [phone] LOIS IBARRA 06/09 Released w/o Limitations [address] [place] [address])(W arrior Op Med Cln Tm A Ad) [address] [place] [address])(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) TELE CONSULT [id number] Notes Entered by: Toby YA 10 Jun 2012 1448 ------- ------- ------- ------- -- Walk in HCG LARY NICHOLAS 06/[address] [place] [address])(Geoffrey razo gy) [address] [place] [address])(Fam jesus Med Tm B Non-AD BCC) TELE CONSULT [id number] Notes Entered by: SHERYL NUNO 22 Jun 2012 0925 ------- ------- ------- ------- -- Vaginal pain, JE Vincent 06/[address] [place] [address])(F amily Med Tm B Non-AD BCC) [address] [place] [address])(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) TELE CONSULT [id number] Notes Entered by: LEVON FLORES 22 Jun 2012 1117 ------- ------- ------- ------- -- F/u appt for ER visit TIRSOROCIO LARY L 06/[address] [place] [address])(G ynecodenis gy) [address] [place] [address])(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) TELE CONSULT [id number] Notes Entered by: KARTHIK SANDOVAL 06 Jul 2012 1352 ------- ------- ------- ------- -- Resched pia [place] appt - Josue f - [phone] MARY JO ELKINS 07/06 Referred for Appointment [address] [place] [address])(G yalka gy) [address] [place] [address])(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) OUTPATIENT [id number] Follow up ER visit, lower pelvic pain, UTI, dysuria and mild inconti ANI Evans 07/15 Released w/o Limitations [address] [place] [address])(G ynecodenis gy) [address] [place] [address])(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) TELE CONSULT [id number] Notes Entered by: TESSA SORIA 12 Aug 2012 1007 ------- ------- ------- ------- -- Lab result VERONICA JOHNS 08/[address] [place] [address])(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) [address] [place] [address])(War rior Op Med Cln Tm A Ad) TELE CONSULT [id number] Notes Entered by: SHERYL NUNO 17 Aug 2012 1020 ------- ------- ------- ------- -- Vaginal itching /burnin ANDRAE Magaña 08/[address] [place] [address])(W arrior Op Med Cln Tm A Ad) [address] [place] [address])(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) TELE CONSULT [id number] Notes Entered by: TESSA SORIA 30 Aug 2012 1003 ------- ------- ------- ------- -- US result VERONICA JOHNS 08/[address] [place] [address])(G ynecolo gy) [address] [place] [address])([facility] Team 3) OUTPATIENT [id number] neck and shoulde r pain x 2 weeks; denies injury, LOIS IBARRA 10/11 Released w/o Limitations [address] [place] [address])([facility] Team 3) [address] [place] [address])([facility] Team 3) TELE CONSULT [id number] Notes Entered by: SHERYL NUNO 19 Oct 2012 1356 ------- ------- ------- ------- -- Flu symptom s ANDRAE Nguyen 10/[address] [place] [address])([facility] Team 3) [address] [place] [address])([facility] Team 3) TELE CONSULT [id number] Notes Entered by: SOPHIA LARA 08 Nov 2012 1206 ------- ------- ------- ------- -- Ling Devlin [id number] ANDRAE HEDRICK 11/[address] [place] [address])([facility] Team 3) [address] [place] [address])(War rior Op Med Cln Tm A Ad) TELE CONSULT [id number] Notes Entered by: OWEN NEGRETE 21 Nov 2012 0824 ------- ------- ------- ------- -- Josue ruelas/ANDRAE Mariscal M 11/21 [facility])(W arrior Op Med Cln Tm A Ad) [address] [place] [address])(War rior Op Med Cln Tm A Ad) TELE CONSULT [id number] Notes Entered by: KANU ANGEL 14 Dec 2012 1129 ------- ------- ------- ------- -- Network Results - Physica l Therapy - 3 LOIS IBARRA 12/14 [facility])(W arrior Op Med Cln Tm A Ad) [address] [place] [address])(Wio tt [facility] Team 3) TELE CONSULT [id number] Notes Entered by: SHAUN JOHNSTON 22 Dec 2012 1443 ------- ------- ------- ------- -- Med Refill- Josue ruelas/ ANDRAE SIMS 12/22 [facility] [place] [facility])(S [facility] Team 3) [address] [place] [address])(War rior Op Med Cln Tm A Ad) TELE CONSULT [id number] Notes Entered by: KANU ANGEL 23 Jan 2013 1211 ------- ------- ------- ------- -- Network Results - Physica l Therapy - 3 MANN BUCIO 01/23 [facility] [place] [facility]W arrior Op Med Cln Tm A Ad) [address] [place] [address])([facility] Team 3) TELE CONSULT [id number] Notes Entered by: Duglas SILVESTRE 25 Jan 2013 1510 ------- ------- ------- ------- -- Med refill Leonel MACARENA THOMAS I 01/[address] [place] [address] [place] [facility])(S cott [facility] Team 3) [facility])(War rior Op Med Cln Tm A Ad) OUTPATIENT [id number] acid relux-m ed not working , ring in L ear [id number] RAHUL SCHMITT 02/21 Released w/o Limitations [address] [place] [address])(W arrior Op Med Cln Tm A Ad) [address] [place] [address])(War rior Op Med Cln Tm A Ad) TELE CONSULT [id number] Notes Entered by: RAHUL SCHMITT 22 Feb 2013 1254 ------- ------- ------- ------- -- F/u from labs RAHUL SCHMITT 02/[address] [place] [address])(W arrior Op Med Cln Tm A Ad) [address] [place] [address])(War rior Op Med Cln Tm A Ad) TELE CONSULT [id number] Notes Entered by: STARLA MARES 03 Mar 2013 1510 ------- ------- ------- ------- -- Ear pain/Giraldo bereniceraabebe / JODIE RODRIGUEZ 03/03 Referred for Appointment [address] [place] [address])(W arrior Op Med Cln Tm A Ad) [address] [place] [address])(War rior Op Med Cln Tm A Ad) OUTPATIENT [id number] ear pain JYOTHI BATES 03/06 Released w/o Limitations [address] [place] [address])(W arrior Op Med Cln Tm A Ad) [address] [place] [address])(War rior Op Med Cln Tm A Ad) TELE CONSULT [id number] Notes Entered by: SOPHIA LARA 09 Mar 2013 1506 ------- ------- ------- ------- -- Ling Colon [facility] [place] [phone] JODIE RODRIGUEZ 03/09 Referred for Appointment [address] [place] [address])(W arrior Op Med Cln Tm A Ad) [address] [place] [address])(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) TELE CONSULT [id number] Notes Entered by: SUSAN CONTRERAS 27 Apr 2013 0942 ------- ------- ------- ------- -- Walk in for pregnan cy test YONG FLORES 04/[address] [place] [address])(G ybraxtoncolo gy) [address] [place] [address])(War rior Op Med Cln Tm A Ad) TELE CONSULT [id number] Notes Entered by: Duglas SILVESTRE 28 Apr 2013 1157 ------- ------- ------- ------- -- Sinus infecti on [facility] es EB DOMINGO 04/[address] [place] [address])(W arrior Op Med Cln Tm A Ad) [address] [place] [address])(War rior Op Med Cln Tm A Ad) TELE CONSULT [id number] Notes Entered by: STARLA MARES 01 May 2013 08 ------- ------- ------- ------- -- Appt request /beverley lomas/[phone] EB DOMINGO 05/[address] [place] [address])(W arrior Op Med Cln Tm A Ad) [address] [place] [address])(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) OUTPATIENT [id number] New OB with IBS EDC approx Oct 14. CLEMENTINA DAVILA 05/01 Released w/o Limitations [address] [place] [address])(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) [address] [place] [address])(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) OUTPATIENT [id number] Notes Entered by: JENI CHEN 05 May 2013 1132 ------- ------- ------- ------- -- NIC RAHMAN 5May14/ repeat u/s CLEMENTINA DAVILA 05/05 Released w/o Limitations [facility] ([facility])(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) [address] [place] [address])(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) TELE CONSULT [id number] Notes Entered by: MARY JO ELKINS 10 May 2013 1250 ------- ------- ------- ------- -- Constip atCLEMENTINA Lees 05/[address] [place] [address])(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) [facility])(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) OUTPATIENT [id number] NIC RAHMAN [id number] GUERRERO DWYER 05/25 Released w/o Limitations [address] [place] [address] ([facility])(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) [facility])(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) TELE CONSULT [id number] Notes Entered by: MARY JO ELKINS 03 Jul 2013 1451 ------- ------- ------- ------- -- Medicat MARY JO Guerrero 07/03 [facility])(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) [facility])(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) TELE CONSULT [id number] Notes Entered by: MARY JO ELKINS 05 Jul 2013 1309 ------- ------- ------- ------- -- Cold Symptom s MARY JO ELKINS 07/05 [facility])(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) [facility])(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) OUTPATIENT [id number] NIC RAHMAN December 13 VIOLET WALKER 07/06 Released w/o Limitations [facility] [place] [employer] ([facility])(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) [facility])(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) TELE CONSULT [id number] Notes Entered by: MARY JO ELKINS 06 Jul 2013 1426 ------- ------- ------- ------- -- [facility] Corley 07/[address] [place] [address])(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) [address] [place] [address])(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) TELE CONSULT [id number] Notes Entered by: MARY JO ELKINS 17 Jul 2013 1109 ------- ------- ------- ------- -- Anxiety MARY JO ELKINS 07/[address] [place] [address])(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) [address] [place] [address])(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) TELE CONSULT [id number] Notes Entered by: LASHELL PARIS 18 Jul 2013 0758 ------- ------- ------- ------- -- [facility] GUERRERO DWYER 07/[address] [place] [address])(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) [address] [place] [address])(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) OUTPATIENT [id number] evaluat ion for anti-an xiety medicat ion d/t acute panic attacks GUERRERO DWYER 07/18 Released w/o Limitations [address] [place] [address])(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) [address] [place] [address])(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) TELE CONSULT [id number] Notes Entered by: MARY JO ELKINS 11 Aug 2013 1606 ------- ------- ------- ------- -- Medicat ion Refill GUERRERO DWYER 08/[address] [place] [address])(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) [address] [place] [address])(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) TELE CONSULT [id number] Notes Entered by: LASHELL PARIS 16 Aug 2013 1040 ------- ------- ------- ------- -- Network Results -OBSTET RICS 08/14/13 ANI CHOI 08/[address] [place] [address])(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) [address] [place] [address])(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) OUTPATIENT [id number] nic - edc december 13 GUERRERO DWYER 08/17 Released w/o Limitations [address] [place] [address] [place] [facility])(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) [address] [place] [address])(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) TELE CONSULT [id number] Notes Entered by: ST KATERYNA DAVILA 27 Aug 2013 1307 ------- ------- ------- ------- -- anxiety CLEMENTINA DAVILA 08/[address] [place] [address])(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) [address] [place] [address])(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) OUTPATIENT [id number] follow up appt/an xiety attacks /treatm ent plan GUERRERO DWYER 08/28 Released w/o Limitations [address] [place] [address])(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) [address] [place] [address] [place] [facility])(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) TELE CONSULT [id number] Notes Entered by: Aster DWYER 29 Aug 2013 0908 ------- ------- ------- ------- -- Anxiety GUERRERO DWYER 08/[address] [place] [address])(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) [address] [place] [address])(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) TELE CONSULT [id number] Notes Entered by: Duglas DAVIES 05 Sep 2013 1131 ------- ------- ------- ------- -- ANTONIO Puente 09/[address] [place] [address])(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) [address] [place] [address])(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) OUTPATIENT [id number] f/u hospita lizatio n/anxie lalita STEPH ANI Jim Natarajan 09/08 Released w/o Limitations [address] [place] [address])(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) [address] [place] [address])(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) TELE CONSULT [id number] Notes Entered by: ME JARED CANO 12 Sep 2013 1146 ------- ------- ------- ------- -- Insomni a 24 6/7 week Ob-per our convers ation GUERRERO DWYER 09/[address] [place] [address])(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) [address] [place] [address])(Sco [facility]) TELE CONSULT [id number] Notes Entered by: Jmi ENRIQUEZ 12 Sep 2013 1747 ------- ------- ------- ------- -- [facility] THELMA Skelton 09/[address] [place] [address])(S [facility] [employer] [facility]) [address] [place] [address])(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) TELE CONSULT [id number] Notes Entered by: MARY JO ELKINS 13 Sep 2013 1540 ------- ------- ------- ------- -- MACARENA Rao I 09/[address] [place] [address])(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) [address] [place] [address])(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) OUTPATIENT [id number] NEW MEDICAT ION FOLLOW UP/EDC DECEMBER 13 GUERRERO DWYER 09/15 Released w/o Limitations [address] [place] [address])(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) [address] [place] [address])(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) TELE CONSULT [id number] Notes Entered by: MARY JO ELKINS 19 Sep 2013 1505 ------- ------- ------- ------- -- Medicat ion Increas e GUERRERO DWYER 09/[address] [place], [place] [address]B ([facility])(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) [address] [place] [address] [place] [employer] ([facility])(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) TELE CONSULT [id number] Notes Entered by: LASHELL PARIS 20 Sep 2013 0816 ------- ------- ------- ------- -- Network Results -OBSTET RICS 09/12/13 ANI CHOI 09/[address] [place] [address] [employer] ([facility])(G ynecolo gy) [address] [place] [address] [employer] ([facility])(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) OUTPATIENT [id number] nic edc december 13 THELMA HA 09/21 Released with Work/Duty Limitations [address] [place] [address] [employer] ([facility])(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) [address] [place], [place] [address]B ([facility])(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) OUTPATIENT [id number] HROB EDCDecember 13 GUERRERO DWYER 09/25 Released w/o Limitations [address] [place] [address] [employer] ([facility])(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) [address] [place] [address] [employer] ([facility])(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) TELE CONSULT [id number] Notes Entered by: YAAZN MILLS 26 Sep 2013 0920 ------- ------- ------- ------- -- HROB-casie bradshaw/ CLEMENTINA Perez 09/[address] [place] [address] [place] [employer] ([facility])(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) [address] [place] [address] [employer] ([facility])(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) TELE CONSULT [id number] Notes Entered by: MARY JO ELKINS 02 Oct 2013 1052 ------- ------- ------- ------- -- [facility] JO Corley 10/[address] [place] [address] [employer] ([facility])(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) [address] [place] [address] [employer] ([facility])(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) TELE CONSULT [id number] Notes Entered by: Aster DWYER 03 Oct 2013 0803 ------- ------- ------- ------- -- Abnorma l glucose screen TARIQJASWINDERGUERRERO Reynaldo 10/[address] [place] [address] [employer] [place] [employer] ([facility])(G ynecolo gy) [address] [place] [address] [place] [employer] ([facility])(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) OUTPATIENT [id number] HROB/ EDC December 13 YULIYAZACKGUERRERO B 10/05 Released w/o Limitations [facility] [employer] ([facility])(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) [address] [place] [address] Group [place] [employer] ([facility])(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) TELE CONSULT [id number] Notes Entered by: Aster DWYER 06 Oct 2013 1542 ------- ------- ------- ------- -- Elevate d 3 hr GTT MACARENA THOMAS I 10/[address] [place] [address] [place] [employer] ([facility])( [employer] la[employer] gy) [address] [place] [address] [place] [employer] ([facility])(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) OUTPATIENT [id number] HROB/ EDC [id number] TARIQGUERRERO SAN Reynaldo 10/13 Released w/o Limitations [address] [place] [address] Group [place] [employer] ([facility])(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) [address] [place] [address] [place] [employer] ([facility])(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) TELE CONSULT [id number] Notes Entered by: LASHELL PARIS 18 Oct 2013 0905 ------- ------- ------- ------- -- Network Results -OBSTET RICS 10/05/13 CLEMENTINA DAVILA 10/18 [facility] [employer] ([facility])(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) [facility] [employer] ([facility])(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) OUTPATIENT [id number] HROB/ EDC December 13 YULIYAZACKGUERRERO B 10/19 Released w/o Limitations [address] [place] [address] [employer] ([facility])(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) [facility] [employer] ([facility])(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) TELE CONSULT [id number] Notes Entered by: LASHELL PARIS 20 Oct 2013 1131 ------- ------- ------- ------- -- Network Results -OBSTET RICS 10/06/13 GUERRERO DWYER 10/20 [facility] [place] [employer] ([facility])(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) [address] [place] [address] [place] [employer] ([facility])([facility]) TELE CONSULT [id number] Notes Entered by: CATHY TOMAS 25 Oct 2013 1058 ------- ------- ------- ------- -- Message from OB TEAM CATHY TOMAS 10/[address] [place] [address] Group [place] [employer] ([facility])(O [facility]) [facility] [place] [employer] ([facility])(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) TELE CONSULT [id number] Notes Entered by: Aster DWYER 26 Oct 2013 0954 ------- ------- ------- ------- -- Pt phoneca GUERRERO DWYER 10/[address] [place] [address] Group [place] [employer] ([facility])(G ynecolo gy) [facility] [place] [facility])(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) OUTPATIENT [id number] HROB EDC [id number] CLEMENTINA DAVILA 10/26 Released w/o Limitations [facility] [place] [employer] ([facility])(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) [address] [place] [address] [place] [employer] ([facility])(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) TELE CONSULT [id number] Notes Entered by: RADHA LANZA 27 Oct 2013 1511 ------- ------- ------- ------- -- Medicat ion GAYE Nieto 10/27 [facility] [employer] ([facility])(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) [address] [place] [address] [employer] ([facility])(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) TELE CONSULT [id number] Notes Entered by: RADHA LANZA 30 Oct 2013 0915 ------- ------- ------- ------- -- Medicat ion reactio GAYE Melissa 10/30 [facility] [employer] [facility])(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) [facility] [place] [employer] ([facility])([facility]) OUTPATIENT [id number] [facility] REYES CHOWDHURY 11/03 Released w/o Limitations [address] [place] [address] [place] [employer] ([facility])(N utritio nal Medicin e) [facility] [place] [employer] ([facility])(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) TELE CONSULT [id number] Notes Entered by: RADHA LANZA 08 Nov 2013 0803 ------- ------- ------- ------- -- Refill prescri ption GAYE DECKER 11/[address] [place] [address] Group [place] [facility])(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) [address] [place] [address] [place] [facility])(War rior Op Med Cln Tm A Ad) OUTPATIENT [id number] Cough/C ongesti on CHETNA MESA 11/08 Released w/o Limitations [address] [place] [address] [place] ([facility])(W arrior Op Med Cln Tm A Ad) [facility] [place] [employer] [facility])(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) OUTPATIENT [id number] HROB EDC [id number] GUERRERO DWYER 11/13 Released w/o Limitations [address] [place] [address] [place] ([facility])(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) [facility] [place] [employer] [facility])(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) OUTPATIENT [id number] HROB/ED C December 13 CLEMENTINA DAVILA 11/27 Released w/o Limitations [address] [place] [address] [place] [employer] ([facility])(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) [facility] [employer] ([facility])(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) TELE CONSULT [id number] Notes Entered by: JANINA MUHAMMAD 04 Dec 2013 0933 ------- ------- ------- ------- -- Nausea and dry heaving MACARENA THOMAS I 12/[address] [place] [address] [employer] ([facility])(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) [facility] [place] [employer] ([facility])(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) TELE CONSULT [id number] Notes Entered by: LASHELL PARIS 11 Dec 2013 1121 ------- ------- ------- ------- -- Network Results -OBSTET RICS 12/04/13 TARIQGUERRERO SAN Reynaldo 12/11 [employer] ([facility])(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) [employer] ([facility])(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) OUTPATIENT [id number] Post check up/del December 13 CLEMENTINA DAVILA 12/21 Released w/o Limitations [employer] ([facility])(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) [employer] ([facility])(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) OUTPATIENT [id number] 6WPP/ Del 05 Dec 2013 ANI CHOI 01/23 Released w/o Limitations [employer] ([facility])(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) [employer] ([facility])(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) OUTPATIENT [id number] [facility] [place] ALYSSA Michel 02/20 Released w/o Limitations [employer] ([facility])(Geoffrey razo gy) [facility] [employer] ([facility])(War rior Op Med Cln Tm A Ad) TELE CONSULT [id number] Notes Entered by: Abelino SILVESTRE 01 May 2014 1304 ------- ------- ------- ------- -- SOFIA RUVALCABA/Gayle ceballos/ [phone] EVONNE BRAR 05/01 [employer] ([facility])(W arrior Op Med Cln Tm A Ad) [employer] ([facility])(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) OUTPATIENT [id number] LUISANA ALEXANDER 06/04 Released w/o Limitations [employer] ([facility])(Geoffrey razo gy) [employer] ([facility])(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) OUTPATIENT [id number] Bekah bojorquez Inserti on [phone] LUISANA DEVLIN 06/18 Released w/o Limitations [employer] ([facility])(G ynecolo gy) Medical [facility])(War rior Op Med Cln Tm A Ad) OUTPATIENT [id number] right wrist pain - [id number] CHETNA MESA 07/09 Released w/o Limitations [facility])(W arrior Op Med Cln Tm A Ad) [facility])(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) OUTPATIENT [id number] [facility] placeme nt check LUISANA DEVLIN 09/07 Released w/o Limitations [facility])(G ynecolo gy) [facility])(War rior Op Med Cln Tm A Ad) TELE CONSULT [id number] Notes Entered by: ROZ GASTELUM 21 Sep 2014 1006 ------- ------- ------- ------- -- SX - multipl e sx/Elsn [facility]/ * MANN COLON 09/21[facility])(W arrior Op Med Cln Tm A Ad) [facility])(War rior Op Med Cln Tm A Ad) OUTPATIENT [id number] Ovarian Cyst, ER Visit LAMAR Donnelly 09/24 Released w/o Limitations [facility])(W arrior Op Med Cln Tm A Ad) [facility])(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) OUTPATIENT [id number] Possibl e Ovarion Cyst GUERRERO DWYER 09/24 Released w/o Limitations [facility])(G ynecolo gy) [address] [place] [address])(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) TELE CONSULT [id number] Notes Entered by: Aster DWYER 04 Oct 2014 1623 ------- ------- ------- ------- -- U/S results VERONICA JOHNS 10/[address] [place] [address])(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) [address] [place] [address])(War rior Op Med Cln Tm A Ad) OUTPATIENT [id number] pain in both feet -L is worse x 1wk [id number] TENZIN HOPE 12/11 Released w/o Limitations [address] [place] [address] [place] [facility])(W arrior Op Med Cln Tm A Ad) [address] [place] [address])(War rior Op Med Cln Tm A Ad) TELE CONSULT [id number] Notes Entered by: KANU ANGEL 29 Jan 2015 1253 ------- ------- ------- ------- -- Network results Neurolo gy 5 TENZIN HOPE 01/[address] [place] [address])(W arrior Op Med Cln Tm A Ad) [address] [place] [address])(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) OUTPATIENT [id number] red,bli stery [facility] [phone] ALYSSA COLÓN 02/05 Released w/o Limitations [address] [place] [address])(Geoffrey razo gy) [address] [place] [address])(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) TELE CONSULT [id number] Notes Entered by: ANDREWS COLÓN 12 Feb 2015 1635 ------- ------- ------- ------- -- results LAMAR ALVARADO 02/[address] [place] [address])(G dung gy) [address] [place] [address])(War rior Op Med Cln Tm A Ad) TELE CONSULT [id number] Notes Entered by: KANU ANGEL 01 Mar 2015 0938 ------- ------- ------- ------- -- Network results Neurolo gy 5 TENZIN HOPE 03/[address] [place] [address])(W arrior Op Med Cln Tm A Ad) [address] [place] [address])(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) TELE CONSULT [id number] Notes Entered by: JUAN ALBERTO GRIMM 10 Apr 2015 1049 ------- ------- ------- ------- -- Sx - Multipl e sx/Layla donnelly/Jaymie [phone]. [phone] ANANDA WILLAMS 04/[address] [place] [address])(G ynecolo gy) [address] [place] [address])(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) OUTPATIENT [id number] pelvic pain, vaginal bleedin g x 2weeks AMAYA BAEZ 04/11 Released w/o Limitations [address] [place] [address])(G ynecolo gy) [address] [place] [address])(War rior Op Med Cln Tm A Ad) TELE CONSULT [id number] Notes Entered by: SAILAJA DEVLIN 15 Apr 2015 0818 ------- ------- ------- ------- -- Lab Results / Gil limon / KEL THOMPSON 04/[address] [place] [address])(W arrior Op Med Cln Tm A Ad) [address] [place] [address])(War rior Op Med Cln Tm A Ad) TELE CONSULT [id number] Notes Entered by: ALESIA BARRAGAN 26 Apr 2015 1103 ------- ------- ------- ------- -- ER Follow- up/ Gil limon/ 741.401 2 MANN COLON 04/[address] [place] [address])(W arrior Op Med Cln Tm A Ad) [address] [place] [address])(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) OUTPATIENT [id number] discuss tubalig ation [id number] GUERRERO DWYER 04/30 Released w/o Limitations [address] [place] [address])(G ynecolo gy) [address] [place] [address])(War rior Op Med Cln Tm A Ad) TELE CONSULT [id number] Notes Entered by: JEN BADILLO 23 May 2015 1046 ------- ------- ------- ------- -- Network Results -GASTRO ENTEROL OGY 5 TENZIN HOPE 05/[address] [place] [address])(W arrior Op Med Cln Tm A Ad) [address] [place] [address])(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) TELE CONSULT [id number] Notes Entered by: GILSON THOMSON 04 Jun 2015 0811 ------- ------- ------- ------- -- Cancel for Bella bojorquez/t jad- GILSON Osuna 06/[address] [place] [address])(G yalka gy) [address] [place] [address])(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) TELE CONSULT [id number] Notes Entered by: Aster DWYER 05 Jun 2015 0859 ------- ------- ------- ------- -- U/S result VERONICA JOHNS 06/[address] [place] [address])(G ybraxtoncodenis gy) [address] [place] [address])(War rior Op Med Cln Tm A Ad) OUTPATIENT [id number] Bad cough, headach e, nasal and chest congest ion [id number] PLACIDO MERAZ 06/05 Released w/o Limitations [address] [place] [address])(W arrior Op Med Cln Tm A Ad) [address] [place] [address])(War rior Op Med Cln Tm A Ad) TELE CONSULT [id number] Notes Entered by: KANU ANGEL 07 Jun 2015 1008 ------- ------- ------- ------- -- Network results Neurolo gy 5 TENZIN HOPE 06/[address] [place] [address])(W arrior Op Med Cln Tm A Ad) [address] [place] [address])(Fam jesus Med Tm B Non-AD BCC) TELE CONSULT [id number] Notes Entered by: MANN COLON 22 Aug 2015 0755 ------- ------- ------- ------- -- Referra l for physica l therapy needed MANN COLON 08/[address] [place] [address])(F amily Med Tm B Non-AD BCC) [address] [place] [address])(War rior Op Med Cln Tm A Ad) TELE CONSULT [id number] Notes Entered by: Delgado PIERCE 26 Aug 2015 1313 ------- ------- ------- ------- -- SX - Multipl e LorenzoX / Gil ne / JOE ASH 08/26 Referred for Appointment [address] [place] [address])(W arrior Op Med Cln Tm A Ad) [address] [place] [address])(War rior Op Med Cln Tm A Ad) TELE CONSULT [id number] Notes Entered by: KANU ANGEL 28 Aug 2015 1302 ------- ------- ------- ------- -- Network Results - Neurolo gy 6 TENZIN HOPE 08/[address] [place] [address])(W arrior Op Med Cln Tm A Ad) [address] [place] [address])(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) OUTPATIENT [id number] Discuss ANI Boss 09/23 Released w/o Limitations [address] [place] [address])(G ynecolo gy) [address] [place] [address])(War rior Op Med Cln Tm A Ad) OUTPATIENT [id number] L and R shoulde r pain x 2 wks 741.401 2 TENZIN HOPE 09/25 Released w/o Limitations [address] [place] [address])(W arrior Op Med Cln Tm A Ad) [address] [place] [address])(War rior Op Med Cln Tm A Ad) TELE CONSULT [id number] Notes Entered by: JUAN ALBERTO GRIMM 02 Oct 2015 1405 ------- ------- ------- ------- -- Sx - Multipl e sx/Layla donnelly/7 [phone] JOE ASH 10/01 Referred for Appointment [address] [place] [address])(W arrior Op Med Cln Tm A Ad) [address] [place] [address])(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) TELE CONSULT [id number] Notes Entered by: DIMPLE MALIK 03 Oct 2015 0927 ------- ------- ------- ------- -- Pre-op call for Essure on 10 Oct 2015 FAMILIA THOMPSON 10/[address] [place] [address])(G ynecolo gy) [address] [place] [address])(War rior Op Med Cln Tm A Ad) OUTPATIENT [id number] cough, congest ion and ear pain TENZIN HOPE 10/02 Released w/o Limitations [address] [place] [address])(W arrior Op Med Cln Tm A Ad) [address] [place] [address])(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) OUTPATIENT [id number] essure procedu re - [phone] ANI CHOI 10/09 Released w/o Limitations [address] [place] [address])(G ynecolo gy) [address] [place] [address])(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) TELE CONSULT [id number] Notes Entered by: DIMPLE MALIK 11 Oct 2015 0859 ------- ------- ------- ------- -- Callba k for Essure on 10 Oct 2015 DIMPLE JOHNSON 10/10 Referred for Appointment [address] [place] [address])(G ynecolo gy) [address] [place] [address])(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) TELE CONSULT [id number] Notes Entered by: LEVON FLORES 15 Oct 2015 1032 ------- ------- ------- ------- -- Bleedin g after ESSURE procedu re on Oct 15. DIMPLE JOHNSON 10/14 Referred for Appointment [address] [place] [address])(G ynecolo gy) [address] [place] [address])(Med ication Refill Clinic) TELE CONSULT [id number] Notes Entered by: Delgado PIERCE 21 Oct 2015 1501 ------- ------- ------- ------- -- Med renewal / Champag ne / ZULMA JAMISON 10/[address] [place] [address])(M edicasheryl on Refill Clinic) [address] [place] [address])(Med ication Refill Clinic) TELE CONSULT [id number] Notes Entered by: Vidal YA 17 Dec 2015 1144 ------- ------- ------- ------- -- Med bridge, Appt Jan 15 / Champag braxton / DENIZ FRANKLIN 12/[address] [place] [address])(Michel eddiogenes on Refill Clinic) [address] [place] [address])(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) OUTPATIENT [id number] [facility] s/p bella - GIANNA STRAUSS 01/06 Released w/o Limitations [address] [place] [address])(G ynecolo gy) [address] [place] [address])(War rior Op Med Cln Tm A Ad) OUTPATIENT [id number] Med Renewal s 741.401 2 TENZIN HOPE A 01/07 Released w/o Limitations [facility] [place] [employer] [facility])(W arrior Op Med Cln Tm A Ad) [facility] [employer] ([facility])(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) OUTPATIENT [id number] possibl e yeast infecti on - [phone] AMAYA BAEZ 03/04 Released w/o Limitations [facility] [place] [employer] [facility])(G ynecolo gy) [facility] [employer] [facility])(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) TELE CONSULT [id number] Notes Entered by: KYLE BAEZ 16 Mar 2016 1032 ------- ------- ------- ------- -- Test results LAMAR ALVARADO 03/16[facility] [place] [employer] [facility])(G ynecolo gy) [address] [place] [address] [place] [facility])(Sco tt [facility]) OUTPATIENT [id number] PATRICIA Serna pt 04/10 Released w/o Limitations [facility] [place] [employer] ([facility])(S cott [facility]) [address] [place] [address] [place] [facility])(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) OUTPATIENT [id number] repeat hsg - rt side - s/p gerardoure KARI VANEGAS 04/14 Released w/o Limitations [facility] [place] [employer] ([facility])(G ynecolo gy) [address] [place] [address] [place] [employer] [facility])(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) OUTPATIENT [id number] PARAGAR D INSERTI ON - [phone] KARI VANEGAS 04/21 Released w/o Limitations [facility] [place] [employer] [facility])(G ynecolo gy) [address] [place] [address] [employer] [facility])(Fam jesus Med Tm B Non-AD BCC) OUTPATIENT [id number] pressur e headach e - sore throat from drainag e - [phone] DEVIN GIBSON 06/08 Released w/o Limitations [facility] [employer] ([facility])(F amily Med Tm B Non-AD BCC) [address] [place] [address] [facility] [place] [facility]War rior Op Med Cln Tm A Ad) OUTPATIENT [id number] med renewal /referr MILLY Duong 07/14 Released w/o Limitations [address] [place] [address] [place] [facility])(W arrior Op Med Cln Tm A Ad) [address] [place] [address])(War rior Op Med Cln Tm A Ad) OUTPATIENT [id number] sore throat, fever, body aches x2 days / TENZIN HOPE 09/02 Released w/o Limitations [facility] Group [facility])(W arrior Op Med Cln Tm A Ad) [address] [place] [address] Group [facility])(War rior Op Med Cln Tm A Ad) TELE CONSULT [id number] Notes Entered by: GLEN COTO 14 Sep 2016 0946 ------- ------- ------- ------- -- Network Results Radiolo gy 7 DS TENZIN HOPE 09/[address] [place] [address] Group [facility])(W arrior Op Med Cln Tm A Ad) [address] [place] [address])(War rior Op Med Cln Tm A Ad) TELE CONSULT [id number] Notes Entered by: JEN BADILLO 14 Sep 2016 1211 ------- ------- ------- ------- -- Network Results -GASTRO ENTEROL OGY 08/28/16 MEG TENZIN HOPE 09/[address] [place] [address] Group [place] [facility]W arrior Op Med Cln Tm A Ad) [address] [place] [address] Group [facility])(War rior Op Med Cln Tm A Ad) OUTPATIENT [id number] Knot near R Collar bone [id number] TENZIN HOPE 10/23 Released w/o Limitations [address] [place] [address] [place] [facility])(W arrior Op Med Cln Tm A Ad) [address] [place] [address] [place] [facility])(War rior Op Med Cln Tm A Ad) OUTPATIENT [id number] dizzy, headach es, ear aches, [id number] MILLY BEGUM 12/14 Released w/o Limitations [address] [place] [address])(W arrior Op Med Cln Tm A Ad) [address] [place] [address])(War rior Op Med Cln Tm A Ad) TELE CONSULT [id number] Notes Entered by: TONY FOFANA 06 Jan 2017 1002 ------- ------- ------- ------- -- Network results Gastroe nterolo gy 12/31/16 MMM TENZIN HOPE 01/[address] [place] [address])(W arrior Op Med Cln Tm A Ad) [address] [place] [address])(Med ication Refill Clinic) TELE CONSULT [id number] Notes Entered by: CRISTI CAREY 12 Jan 2017 1300 ------- ------- ------- ------- -- Med renewal /Kathy schuler/618 .741.40 12/MILLY Everett 01/[address] [place] [address])(Michel bob on Refill Clinic) [address] [place] [address])(War rior Op Med Cln Tm A Ad) OUTPATIENT [id number] Dizzine ss, 741.401 2 BLESSINGCA PLACIDO CHRISTY 02/08 Released w/o Limitations [address] [place] [address])(W arrior Op Med Cln Tm A Ad) [address] [place] [address])(War rior Op Med Cln Tm A Ad) TELE CONSULT [id number] Notes Entered by: JUAN ALBERTO GRIMM 25 Feb 2017 1202 ------- ------- ------- ------- -- Sx - Dizzine ss, R ear pain/Ch sharifagnaster / DARIEN, RAVIN J 02/[address] [place] [address])(W arrior Op Med Cln Tm A Ad) [address] [place] [address])(Fam jesus Med Tm B Non-AD BCC) TELE CONSULT [id number] Notes Entered by: CARLOS MANUEL CORTES 02 Mar 2017 1615 ------- ------- ------- ------- -- Network Results Emergen Room 7 PLACIDO MERAZ 03/[address] [place] [address])(F amily Med Tm B Non-AD BCC) [address] [place] [address])(Med ication Refill Clinic) TELE CONSULT [id number] Notes Entered by: HORTENCIA OLGUIN RET R 15 Apr 2017 1145 ------- ------- ------- ------- -- Rx Renewal /Kathy schuler/618 .741.40 12 [facility] WICHO RUCKER 04/[address] [place] [address])(Michel bob on Refill Clinic) [address] [place] [address])(War rior Op Med Cln Tm A Ad) OUTPATIENT [id number] ear problem s 2 months TENZIN HOPE 04/19 Released w/o Limitations [address] [place] [address])(W arrior Op Med Cln Tm A Ad) [address] [place] [address])(War rior Op Med Cln Tm A Ad) TELE CONSULT [id number] Notes Entered by: HORTENCIA OLGUIN RET R 29 Jun 2017 0726 ------- ------- ------- ------- -- Sx: Thea/Abelino heredia/ [facility] RAVIN LEDEZMA J 06/[address] [place] [address])(W arrior Op Med Cln Tm A Ad) [address] [place] [address])(War rior Op Med Cln Tm A Ad) OUTPATIENT [id number] sore throat, low grade temp 99-100, sinus congest ionkin TENZIN HOPE 06/29 Released w/o Limitations [address] [place] [address])(W arrior Op Med Cln Tm A Ad) [address] [place] [address])(War rior Op Med Cln Tm A Ad) TELE CONSULT [id number] Notes Entered by: ELISABET JOHNSON 02 Jul 2017 1226 ------- ------- ------- ------- -- Positiv e Strep Throat Culture TENZIN HOPE 07/[address] [place] [address])(W arrior Op Med Cln Tm A Ad) [address] [place] [address])(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) OUTPATIENT [id number] bloody dischar ge x 1 week - [phone] AMAYA BAEZ 07/20 Released w/o Limitations [address] [place] [address])(G ynecolo gy) [address] [place] [address])(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) TELE CONSULT [id number] Notes Entered by: KYLE BAEZ 10 Aug 2017 1317 ------- ------- ------- ------- -- Test results VERONICA JOHNS 08/[address] [place] [address])(G ynecodenis gy) [address] [place] [address])(Fam jesus Med Tm B Non-AD BCC) OUTPATIENT [id number] [facility] F/U-SX Persist Ringing L ear/cou gh/sirisha estion [id number] KOBE SELF 09/08 Released w/o Limitations [address] [place] [address])(F amily Med Tm B Non-AD BCC) [address] [place] [address])(Med ication Refill Clinic) TELE CONSULT [id number] Notes Entered by: JUAN ALBERTO GRIMM 10 Sep 2017 0839 ------- ------- ------- ------- -- Med Renewal /Kathy [facility]/618 .741.40 12 RAVIN LEDEZMA 09/[address] [place] [address])(Michel bob on Refill Clinic) [address] [place] [address])(War rior Op Med Cln Tm A Ad) TELE CONSULT [id number] Notes Entered by: HORTENCIA OLGUIN RET 13 Sep 2017 1022 ------- ------- ------- ------- -- SX: Left Ear pain/[facility] RAVIN LEDEZMA 09/[address] [place] [address])(W arrior Op Med Cln Tm A Ad) [address] [place] [address])(War rior Op Med Cln Tm A Ad) TELE CONSULT [id number] Notes Entered by: ALEJO BERNAL 23 Sep 2017 1159 ------- ------- ------- ------- -- Network Results Emergen cy Room 09/02/17 CANDI CAROLINA 09/[address] [place] [address])(W arrior Op Med Cln Tm A Ad) [address] [place] [address])(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) OUTPATIENT [id number] discuss btl/batsheva whitaker coils [phone] KARI VANEGAS 10/05 Released w/o Limitations [address] [place] [address])(G dung gy) [address] [place] [address])(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) TELE CONSULT [id number] YONG FLORES 10/[address] [place] [address])(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) [address] [place] [address])(War rior Op Med Cln Tm A Ad) TELE CONSULT [id number] Notes Entered by: Vidal YEUNG 12 Oct 2017 1047 ------- ------- ------- ------- -- Network results Gastroe nterolo gy 018 ELISA MIDDLETONER Delgado 10/[address] [place] [address])(George humphrey Op Med Cln Tm A Ad) [address] [place] [address])(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) TELE CONSULT [id number] Notes Entered by: Dilma ALVAREZ 12 Oct 2017 1334 ------- ------- ------- ------- -- Surgery reminde r 13 OCT 2017 NICCI ALVAREZ 10/[address] [place] [address])(Geoffrey ybraxtoncodenis gy) [address] [place] [address])(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) TELE CONSULT [id number] Notes Entered by: SUSAN CONTRERAS 15 Oct 2017 1356 ------- ------- ------- ------- -- Scanned carlotta gy report into KARI STAHL 10/[address] [place] [address])(G ynecodenis gy) [address] [place] [address])(Med ication Refill Clinic) TELE CONSULT [id number] Notes Entered by: SAILAJA DEVLIN 21 Oct 2017 1004 ------- ------- ------- ------- -- Med Renewal / Gil limon / - sgWICHO Decker 10/[address] [place] [address])(Michel bob on Refill Clinic) [address] [place] [address])(Andrew cagle Op Med Cln Tm A Ad) TELE CONSULT [id number] Notes Entered by: KARTHIK SANDOVAL 22 Oct 2017 1018 ------- ------- ------- ------- -- Sx: Cough, congest ion - Gil ne - - tsg* URI SARABIA 10/22 Other Not Elsewhere Classified [address] [place] [address] [place] [facility])(W arrior Op Med Cln Tm A Ad) [address] [place] [address] [place] [facility])(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) OUTPATIENT [id number] post op - [phone] KARI VANEGAS 10/26 Released w/o Limitations [address] [place] [address] [place] [facility] ([facility])(G ynecolo gy) [address] [place] [address] [place] [facility])(War rior Op Med Cln Tm A Ad) TELE CONSULT [id number] Notes Entered by: JOSE BURRIS 01 Nov 2017 1036 ------- ------- ------- ------- -- Med refill / WICHO Molina 11/[address] [place] [address] [place] [facility])(W arrior Op Med Cln Tm A Ad) [address] [place] [address] [place] [facility])(War rior Op Med Cln Tm A Ad) OUTPATIENT [id number] Feels tired/r un down/we ight gain/giraldo ir/skin very dry [id number] TENZIN HOPE 12/13 Released w/o Limitations [address] [place] [address] [place] [facility])(W arrior Op Med Cln Tm A Ad) [address] [place] [address] [place] [facility])(War rior Op Med Cln Tm A Ad) TELE CONSULT [id number] Notes Entered by: ELISABET JOHNSON 14 Dec 2017 1050 ------- ------- ------- ------- -- Lab results DARIEN, RAVIN J 12/[address] [place] [address] [place] [facility])(W arrior Op Med Cln Tm A Ad) [address] [place] [address] [place] [facility])(War rior Op Med Cln Tm A Ad) OUTPATIENT [id number] F/U for low Vitamin D - still feeling tired - decline d Virtual [id number] ANTONIO DIGGS 03/02 Released w/o Limitations [address] [place] [address] [place] [facility])(W arrior Op Med Cln Tm A Ad) [facility])(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) TELE CONSULT [id number] Notes Entered by: SLYJim SUSAN LOZA 05 Apr 2018 0733 ------- ------- ------- ------- -- Possibl e yeast infecti on and herpes outbrea NICCI Seo QIAN 04/05 Referred for Appointment [address] [place] [address])(G ynecodenis gy) [address] [place] [address])(War rior Op Med Cln Tm A Ad) TELE CONSULT [id number] Notes Entered by: LUCY PATEL 10 May 2018 1432 ------- ------- ------- ------- -- Med Renewal Request / [place] / - WICHO Wiley 05/10 Referred for Appointment [address] [place] [address])(W arrior Op Med Cln Tm A Ad) [address] [place] [address])(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) OUTPATIENT [id number] dISCUSS treatme nt options for herpes outbrea ks [id number] (pt request ) KARI VANEGAS 05/24 Released w/o Limitations [address] [place] [address])(G ynecolo gy) [address] [place] [address])(War rior Op Med Cln Tm A Ad) TELE CONSULT [id number] Notes Entered by: JUAN ALBERTO GRIMM 15 Aug 2018 1042 ------- ------- ------- ------- -- 2nd opinion Referra l Request /Yessy heredia/ GEOVANI JARVIS 08/15 Other Not Elsewhere Classified [address] [place] [address])(W arrior Op Med Cln Tm A Ad) [address] [place] [address])(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) OUTPATIENT [id number] 0 3 month f/u medicat ion - [phone] KARI VANEGAS 09/12 Released w/o Limitations [address] [place] [address])(G ynecolo gy) [address] [place] [address])(War rior Op Med Cln Tm A Ad) OUTPATIENT [id number] 1 Sinus Drainag e and Pressur e, 741.401 2 ANTONIO DIGGS 11/16 Released w/o Limitations [address] [place] [address])(W arrior Op Med Cln Tm A Ad) [address] [place] [address])(War rior Op Med Cln Tm A Ad) TELE CONSULT [id number] Notes Entered by: PRAKASH BRICENO 16 Nov 2018 1111 ------- ------- ------- ------- -- Pt needs written prescri ption for amanathaly y told her they are out of it MAUDE MORA 11/16 Medication Refill Forwarded [address] [place] [address])(W arrior Op Med Cln Tm A Ad) [...] OTHER ACCUMULATED DATA FOR MEDICALDIAGNOSTIC PURPOSES 09/22 DoD INSERTION OF INTRAUTERINE DEVICE (IUD) 04/21 DoD CATHETERIZATION AND INTRODUCTION OF SALINE OR CONTRAST MATERIAL FOR SALINE INFUSION SONOHYSTEROGRAPHY (SIS) OR HYSTEROSALPINGOGRAP HY 04/14 DoD SCREENING PAPANICOLAOU SMEAR; OBTAINING, PREPARING AND CONVEYANCE OF CERVICAL OR VAGINAL SMEAR TO LABORATORY 03/04 DoD CATHETERIZATION AND INTRODUCTION OF SALINE OR CONTRAST MATERIAL FOR SALINE INFUSION SONOHYSTEROGRAPHY (SIS) OR HYSTEROSALPINGOGRAP HY 01/06 DoD PHARMACOLOGIC MANAGEMENT, INCLUDING PRESCRIPTION AND REVIEW OF [...] NUTRITION THERAPY; INITIAL ASSESSMENT AND INTERVENTION, INDIVIDUAL, [id number] WITH THE PATIENT, EACH 15 MINUTES 11/02 [...] 24 HR/SOON APT;5-10 MIN MED DIS 10/27 [facility] SUBSEQ CARE VISIT () [EXCLS:PATIENTS WHO ARE SEEN FOR A CONDITION UNREL TO / CARE (EG,AN UP RESPIR INFECT;PATIENTS SEEN FOR CONSULTATION ONLY,NOT FOR CONT CARE)] 10/26 [facility] SUBSEQ CARE VISIT () [EXCLS:PATIENTS WHO ARE SEEN FOR A CONDITION UNREL TO / CARE (EG,AN UP RESPIR INFECT;PATIENTS SEEN FOR CONSULTATION ONLY,NOT FOR CONT CARE)] 10/19 DoD PSYCHOTHERAPY, 60 MINUTES WITH PATIENT 10/17 [facility] SUBSEQ CARE VISIT () [EXCLS:PATIENTS WHO ARE SEEN FOR A CONDITION UNREL TO / CARE (EG,AN UP RESPIR INFECT;PATIENTS SEEN FOR CONSULTATION ONLY,NOT FOR CONT CARE)] 10/13 [facility] SUBSEQ CARE VISIT () [EXCLS:PATIENTS WHO ARE SEEN FOR A CONDITION UNREL TO / CARE (EG,AN UP RESPIR INFECT;PATIENTS SEEN FOR CONSULTATION ONLY,NOT FOR CONT CARE)] 10/05 [facility] FAMILY PSYCHOTHERAPY (CONJOINT PSYCHOTHERAPY) (WITH PATIENT PRESENT), 50 MINUTES 10/04 DoD PSYCHOTHERAPY, 60 MINUTES WITH PATIENT 09/28 [facility] SUBSEQ CARE VISIT () [EXCLS:PATIENTS WHO ARE SEEN FOR A CONDITION UNREL TO / CARE (EG,AN UP RESPIR INFECT;PATIENTS SEEN FOR CONSULTATION ONLY,NOT FOR CONT CARE)] 09/25 [facility] SUBSEQ CARE VISIT () [EXCLS:PATIENTS WHO ARE SEEN FOR A CONDITION UNREL TO / CARE (EG,AN UP RESPIR INFECT;PATIENTS SEEN FOR CONSULTATION ONLY,NOT FOR CONT CARE)] 09/21 DoD PSYCHOTHERAPY, 60 MINUTES WITH PATIENT 09/21 [facility] SUBSEQ CARE VISIT () [EXCLS:PATIENTS WHO ARE SEEN FOR A CONDITION UNREL TO / CARE (EG,AN UP RESPIR INFECT;PATIENTS SEEN FOR CONSULTATION ONLY,NOT FOR CONT CARE)] 09/15 [facility] PSYCHIATRIC DIAGNOSTIC EVALUATION 09/14 [facility] SUBSEQ CARE VISIT () [EXCLS:PATIENTS WHO ARE SEEN FOR A CONDITION UNREL TO / CARE (EG,AN UP RESPIR INFECT;PATIENTS SEEN FOR CONSULTATION ONLY,NOT FOR CONT CARE)] 09/08 [facility] SUBSEQ CARE VISIT () [EXCLS:PATIENTS WHO ARE SEEN FOR A CONDITION UNREL TO / CARE (EG,AN UP RESPIR INFECT;PATIENTS SEEN FOR CONSULTATION ONLY,NOT FOR CONT CARE)] 08/28 DoD SUBSEQ CARE VISIT () [EXCLS:PATIENTS WHO ARE SEEN FOR A CONDITION UNREL TO / CARE (EG,AN UP RESPIR INFECT;PATIENTS SEEN FOR CONSULTATION ONLY,NOT FOR CONT CARE)] 08/17 DoD SUBSEQ CARE VISIT () [EXCLS:PATIENTS WHO ARE SEEN FOR A CONDITION UNREL TO / CARE (EG,AN UP RESPIR INFECT;PATIENTS SEEN FOR CONSULTATION ONLY,NOT FOR CONT CARE)] 07/18 DoD SUBSEQ CARE VISIT () [EXCLS:PATIENTS WHO ARE SEEN FOR A CONDITION UNREL TO / CARE (EG,AN UP RESPIR INFECT;PATIENTS SEEN FOR CONSULTATION ONLY,NOT FOR CONT CARE)] 07/06 [facility] ULTRASOUND, UTERUS, REAL TIME WITH IMAGE DOCUMENTATION, [...] OUTPATIENT FACILITY, APPROXIMATELY 20 TO 30 MINUTES [id number] WITH THE PATIENT 01/31 DoD INDIVIDUAL PSYCHOTHERAPY, INSIGHT ORIENTED, BEHAVIOR MODIFYING AND/OR SUPPORTIVE, IN AN OFFICE OR OUTPATIENT FACILITY, APPROXIMATELY 45 TO 50 MINUTES [id number] WITH THE PATIENT 01/10 DoD PSYCHIATRIC DIAGNOSTIC INTERVIEW EXAMINATION 01/06 [facility] URINE TEST, BY VISUAL COLOR COMPARISON METHODS 08/05 [facility] INFECTIOUS AGENT ANTIGEN DETECTION BY IMMUNOASSAY WITH [...] DoD REMOVAL OF INTRAUTERINE DEVICE (IUD) 01/14 [facility] DETERMINATION OF REFRACTIVE STATE 12/31 DoD TELE ASSESS & MGT SRV PROV QUAL NONPHYS HLTH CARE PRO TO EST PAT,PARENT,GUARD NOT ORIG REL ASSESS & MGT SRV PROV W/IN PREV 7 DAYS NOR LEAD ASSESS & MGT SRV/PX W/IN NXT 24 HR/SOON APT;5-10 MIN MED DIS 12/19 DoD INFLUENZA VIRUS VACCINE, TRIVALENT, LIVE (LAIV3), FOR INTRANASAL USE 08/29 [facility] INSERTION OF INTRAUTERINE DEVICE (IUD) 08/20 DoD TELE ASSESS & MGT SRV PROV QUAL NONPHYS HLTH CARE PRO TO EST PAT,PARENT,GUARD NOT ORIG REL ASSESS & MGT SRV PROV W/IN PREV 7 DAYS NOR LEAD ASSESS & MGT SRV/PX W/IN NXT 24 HR/SOON APT;5-10 MIN MED DIS 08/14 [facility] SCREENING PAPANICOLAOU SMEAR; OBTAINING, PREPARING AND CONVEYANCE OF CERVICAL OR VAGINAL SMEAR TO LABORATORY 08/05 [facility] SUBS CARE VISIT () [EXCLS:PATIENTS WHO ARE SEEN FOR A CONDITION UNREL TO / CARE (EG,AN UP RESPIR INFECT;PATIENTS SEEN FOR CONSULTATION ONLY,NOT FOR CONT CARE)] 06/18 [facility] SUBSEQ CARE VISIT () [EXCLS:PATIENTS WHO ARE SEEN FOR A CONDITION UNREL TO / CARE (EG,AN UP RESPIR INFECT;PATIENTS SEEN FOR CONSULTATION ONLY,NOT FOR CONT CARE)] 06/11 [facility] SUBSEQ CARE VISIT () [EXCLS:PATIENTS WHO ARE SEEN FOR A CONDITION UNREL TO / CARE (EG,AN UP RESPIR INFECT;PATIENTS SEEN FOR CONSULTATION ONLY,NOT FOR CONT CARE)] 06/03 [facility] INFLUENZA VIRUS VACCINE, TRIVALENT (IIV3), SPLIT VIRUS, 0.5 ML DOSAGE, FOR INTRAMUSCULAR USE 05/16 [facility] SUBSEQ CARE VISIT () [EXCLS:PATIENTS WHO ARE SEEN FOR A CONDITION UNREL TO / CARE (EG,AN UP RESPIR INFECT;PATIENTS SEEN FOR CONSULTATION ONLY,NOT FOR CONT CARE)] 05/16 [facility] SUBSEQ CARE VISIT () [EXCLS:PATIENTS WHO ARE SEEN FOR A CONDITION UNREL TO / CARE (EG,AN UP RESPIR INFECT;PATIENTS SEEN FOR CONSULTATION ONLY,NOT FOR CONT CARE)] 04/16 [facility] SUBSEQ CARE VISIT () [EXCLS:PATIENTS WHO ARE SEEN FOR A CONDITION UNREL TO / CARE (EG,AN UP RESPIR INFECT;PATIENTS SEEN FOR CONSULTATION ONLY,NOT FOR CONT CARE)] 03/25 [facility] SUBSEQ CARE VISIT () [EXCLS:PATIENTS WHO ARE SEEN FOR A CONDITION UNREL TO / CARE (EG,AN UP RESPIR INFECT;PATIENTS SEEN FOR CONSULTATION ONLY,NOT FOR CONT CARE)] 02/20 [facility] SUBSEQ CARE VISIT () [EXCLS:PATIENTS WHO ARE SEEN FOR A CONDITION UNREL TO / CARE (EG,AN UP RESPIR INFECT;PATIENTS SEEN FOR CONSULTATION ONLY,NOT FOR CONT CARE)] 01/23 [facility] INDIVIDUAL PSYCHOTHERAPY, INSIGHT ORIENTED, BEHAVIOR MODIFYING AND/OR SUPPORTIVE, IN AN OFFICE OR OUTPATIENT FACILITY, APPROXIMATELY 20 TO 30 MINUTES [id number] WITH THE PATIENT 01/02 [facility] SUBSEQ CARE VISIT () [EXCLS:PATIENTS WHO ARE SEEN FOR A CONDITION UNREL TO / CARE (EG,AN UP RESPIR INFECT;PATIENTS SEEN FOR CONSULTATION ONLY,NOT FOR CONT CARE)] 01/02 [facility] URINE TEST, BY VISUAL COLOR COMPARISON METHODS 11/02 [facility] TOBACCO USE CESSATION INTERVENTION, COUNSELING (COPD, CAP, CAD, ASTHMA) (DM) (PV) 10/03 [facility] SCREENING PAPANICOLAOU SMEAR; OBTAINING, PREPARING AND CONVEYANCE OF CERVICAL OR VAGINAL SMEAR TO LABORATORY 09/18 [facility] HEPATITIS B VACCINE (HEPB), ADULT DOSAGE, 3 DOSE SCHEDULE, FOR INTRAMUSCULAR USE 07/05 [facility] HEPATITIS B VACCINE (HEPB), ADULT DOSAGE, 3 DOSE SCHEDULE, FOR INTRAMUSCULAR USE 04/04 [facility] Non-Physician Phone Call To Patient/Provider Brief (5-10min) Non-Physician Phone Call To Patient/Provider Brief (5-10min) 12515 11/16 MAUDE MORA [facility] Non-Physician Phone Call To Patient/Provider Brief (5-10min) Non-Physician Phone Call To Patient/Provider Brief (5-10min) [id number] 08/15 GEOVANI JARVIS [facility] Disease management program, follow-up/christofer e ment 05/17 WICHO RUCKER [facility] Non-Physician Phone Call To Patient/Provider Brief (5-10min) Non-Physician Phone Call To Patient/Provider Brief (5-10min) [id number] 04/05 NICCI ALVAREZ DoD Disease management program, follow-up/christofer e ment 11/01 TENZIN HOPE DoD Disease management program, follow-up/chrisotfer e ment 10/22 CANDI ARNOLD [facility] Non-Physician Phone Call To Patient/Provider Brief (5-10min) Non-Physician Phone Call To Patient/Provider Brief (5-10min) [id number] 10/22 URI SARABIA [facility] Non-Physician Phone Call To Patient/Provider Brief (5-10min) Non-Physician Phone Call To Patient/Provider Brief (5-10min) [id number] 10/12 NICCI ALVAREZ [facility] Non-Physician Phone Call To Patient/Provider Brief (5-10min) Non-Physician Phone Call To Patient/Provider Brief (5-10min) 97107 09/13 RAVIN LEDEZMA [facility] Non-Physician Phone Call To Patient/Provider Brief (5-10min) Non-Physician Phone Call To Patient/Provider Brief (5-10min) 57710 09/10 RAVIN LEDEZMA [facility] Vaginal Wet [place] Vaginal Wet [place] 28563 07/20 AMAYA BAEZ [facility] Non-Physician Phone Call To Patient/Provider Brief (5-10min) Non-Physician Phone Call To Patient/Provider Brief (5-10min) 18384 06/29 RAVIN LEDEZMA [facility] Disease management program, follow-up/christofer e ment 04/16 PLACIDO MACHUCA [facility] Non-Physician Phone Call To Patient/Provider Brief (5-10min) Non-Physician Phone Call To Patient/Provider Brief (5-10min) 79491 02/25 RAVIN LEDEZMA [facility] Psychiatric Evaluation Review of Records and Reports Psychiatric Evaluation Review of Records and Reports [id number] 09/22 ZACHARY AVERY [facility] Gynecologic Services Intrauterine Device (IUD) Insertion Gynecologic Services Intrauterine Device (IUD) Insertion [id number] 04/21 KARI VANEGAS [facility] Hysterosalpingograp hy With Catheter Contrast Injection Hysterosalpingogra phy With Catheter Contrast Injection 13437 04/14 KARI VANEGAS Procedure: A final timeout [...] was informed of these results. No complications. [facility] Screening papanicolaou smear; obtaining, preparing and conveyance of cervical or vaginal smear to laboratory 03/04 AMAYA BAEZ [facility] Vaginal Wet [place] Vaginal Wet [place] 36813 03/04 AMAYA BAEZ [facility] Hysterosalpingograp hy With Catheter Contrast Injection Hysterosalpingogra phy With Catheter Contrast Injection [id number] 01/06 GIANNA STRAUSS [facility] Psychoactive Medication Management Psychoactive Medication Management 20043 11/28 ZACHARY AVERY [facility] Non-Physician Phone Call To Patient/Provider Brief (5-10min) Non-Physician Phone Call To Patient/Provider Brief (5-10min) 23952 10/14 DIMPLE JOHNSON [facility] Non-Physician Phone Call To Patient/Provider Brief (5-10min) Non-Physician Phone Call To Patient/Provider Brief (5-10min) 82703 10/10 DIMPLE JOHNSON [facility] Conscious Sedation By Dr Performing Service 5 Yrs Or Older Conscious Sedation By Dr Performing Service 5 Yrs Or Older 56672 10/09 PRIYA CHOI [facility] Non-Physician Phone Call To Patient/Provider Brief (5-10min) Non-Physician Phone Call To Patient/Provider Brief (5-10min) 61790 10/03 FAMILIA THOMPSON [facility] Non-Physician Phone Call To Patient/Provider Brief (5-10min) Non-Physician Phone Call To Patient/Provider Brief (5-10min) 16103 10/01 JOE ASH [facility] Non-Physician Phone Call To Patient/Provider Brief (5-10min) Non-Physician Phone Call To Patient/Provider Brief (5-10min) 31238 08/26 JOE ASH [facility] Non-Physician Phone Call To Patient/Provider Brief (5-10min) Non-Physician Phone Call To Patient/Provider Brief (5-10min) [id number] 08/22 MANN COLON [facility] Psych Ther Indiv Interact Appr 20-30 Min W/ Med Eval Manage 06/20 ZACHARY AVERY Psych Ther Indiv Interact Appr 45-50 Min W/ Med Eval Manage 05/17 ZACHARY AVERY [facility] Non-Physician Phone Call To Patient/Provider Brief (5-10min) Non-Physician Phone Call To Patient/Provider Brief (5-10min) [id number] 04/26 MANN COLON [facility] Psych Ther Indiv Interact Appr 45-50 Min W/ Med Eval Manage 04/16 ZACHARY AVERY Vaginal Wet [place] Vaginal [place] 36971 04/11 AMAYA BAEZ [facility] Non-Physician Phone Call To Patient/Provider Brief (5-10min) Non-Physician Phone Call To Patient/Provider Brief (5-10min) 91149 04/10 ANANDA WILLAMS [facility] Psych Ther Indiv Interact Appr 45-50 Min W/ Med Eval Manage 02/18 ZACHARY AVERY Psych Ther Indiv Interact Appr 45-50 Min W/ Med Eval Manage 01/01 ZACHARY AVERY [facility] Psych Ther Indiv Interact Appr 45-50 Min W/ Med Eval Manage 11/19 ZACHARY AVERY Psych Ther Indiv Interact Appr 45-50 Min W/ Med Eval Manage 10/23 ZACHARY AVERY [facility] Non-Physician Phone Call To Patient/Provider Brief (5-10min) Non-Physician Phone Call To Patient/Provider Brief (5-10min) 63013 09/21 MANN COLON [facility] Psych Ther Indiv Interact Appr 45-50 Min W/ Med Eval Manage 09/06 ZACHARY AVERY [facility] Psych Ther Indiv Interact Appr 45-50 Min W/ Med Eval Manage 07/24 ZACHARY AVERY [facility] OB Services Antepartum Care Only Subsequent Single Visit OB Services Antepartum Care Only Subsequent Single Visit 0502F 06/30 CLEMENTINA DAVILA [facility] Psychiatric Therapy Individual Approximately 45-50 Minutes 06/21 CATHY TOMAS [facility] Test Test [id number] 06/18 LUISANA DEVLIN [facility] Gynecologic Services Intrauterine Device (IUD) Insertion Gynecologic Services Intrauterine Device (IUD) Insertion [id number] 06/18 LUISANA DEVLIN [facility] Psychiatric Therapy Individual Approximately 45-50 Minutes 06/04 CATHY TOMAS [facility] Vaginal Wet [place] Vaginal Wet [place] 93027 06/04 LUISANA DEVLIN [facility] Social Work Individual Outpatient Counseling 45-50 Minutes 05/17 CATHY TOMAS [facility] Psychiatric Therapy Individual Approximately 45-50 Minutes 04/25 CATHY TOMAS [facility] Gynecologic Services Diaphragm Fitting With Instructions Gynecologic Services Diaphragm Fitting With Instructions 69833 02/20 ALYSSA COLÓN [facility] Social Work Individual Outpatient Counseling 45-50 Minutes 01/30 CATHY TOMAS [facility] OB Services Antepartum Care Only Subsequent Single Visit OB Services Antepartum Care Only Subsequent Single Visit 0502F 11/27 CLEMENTINA DAVILA [facility] OB Services Antepartum Care Only Subsequent Single Visit OB Services Antepartum Care Only Subsequent Single Visit 0502F 11/14 GUERRERO DWYER B [facility] Non-Physician Phone Call To Patient/Provider Brief (5-10min) Non-Physician Phone Call To Patient/Provider Brief (5-10min) 23391 11/08 GAYE DECKER [facility] Medical Nutrition Therapy Initial A e ment, Intervention Medical Nutrition Therapy Initial Assessment, Intervention 74843 11/03 REYES LOPEZ [facility] Non-Physician Phone Call To Patient/Provider Brief (5-10min) Non-Physician Phone Call To Patient/Provider Brief (5-10min) 13457 10/30 GAYE DECKER [facility] OB Services Antepartum Care Only Subsequent Single Visit OB Services Antepartum Care Only Subsequent Single Visit 0502F 10/19 ZACK DWYERILY B [facility] OB Services Antepartum Care Only Subsequent Single Visit OB Services Antepartum Care Only Subsequent Single Visit 0502F 10/13 ERMJASWINDER GUERRERO B [facility] OB Services Antepartum Care Only Subsequent Single Visit OB Services Antepartum Care Only Subsequent Single Visit 0502F 10/06 ZACK DWYERILY B [facility] Psychiatric Therapy Family (Conjoint) 10/04 CATHY TOMAS [facility] OB Services Antepartum Care Only Subsequent Single Visit OB Services Antepartum Care Only Subsequent Single Visit 0502F 09/25 ERMZACK SANILY B [facility] OB Services Antepartum Care Only Subsequent Single Visit OB Services Antepartum Care Only Subsequent Single Visit 0502F 09/21 THELMA HA [facility] OB Services Antepartum Care Only Subsequent Single Visit OB Services Antepartum Care Only Subsequent Single Visit 0502F 09/15 ERMJASWINDER GUERRERO B [facility] Psychiatric Evaluation Psychiatric Evaluation 94420 09/15 TOMASBYRONCATHY [facility] OB Services Antepartum Care Only Subsequent Single Visit OB Services Antepartum Care Only Subsequent Single Visit 0502F 09/08 PRIYA CHOI [facility] OB Services Antepartum Care Only Subsequent Single Visit OB Services Antepartum Care Only Subsequent Single Visit 0502F 08/28 ERMZACK SANILY B [facility] OB Services Antepartum Care Only Subsequent Single Visit OB Services Antepartum Care Only Subsequent Single Visit 0502F 08/17 ERMIS GUERRERO B [facility] OB Services Antepartum Care Only Subsequent Single Visit OB Services Antepartum Care Only Subsequent Single Visit 0502F 07/18 ERMISZACKGUERRERO B [facility] OB Services Antepartum Care Only Subsequent Single Visit OB Services Antepartum Care Only Subsequent Single Visit 0502F 07/06 VIOLET WALKER [facility] Ultrasound Obstetric Limited Evaluation Ultrasound Obstetric Limited Evaluation 63192 05/25 ERMJASWINDER GUERRERO B [facility] OB Services Antepartum Care Only Subsequent Single Visit OB Services Antepartum Care Only Subsequent Single Visit 0502F 05/25 ERMZACK SANILY B [facility] Ultrasound Trans[place] [address] 05/05 SLAT CLEMENTINA K [facility] OB Services Antepartum Care Only Subsequent Single Visit OB Services Antepartum Care Only Subsequent Single Visit 0502F 05/05 SLAT, CLEMENTINA K [facility] Ultrasound Trans[place] [address] 05/02 SLAT CLEMENTINA K [facility] OB Services Antepartum Care Only First Visit, With Report OB Services Antepartum Care Only First Visit, With Report 0500F 05/02 SLAT CLEMENTINA K [facility] Non-Physician Phone Call To Patient/Provider Brief (5-10min) Non-Physician Phone Call To Patient/Provider Brief (5-10min) 76151 04/28 EB DOMINGO [facility] Non-Physician Phone Call To Patient/Provider Brief (5-10min) Non-Physician Phone Call To Patient/Provider Brief (5-10min) 45252 03/09 JODIE RODRIGUEZ [facility] Non-Physician Phone Call To Patient/Provider Brief (5-10min) Non-Physician Phone Call To Patient/Provider Brief (5-10min) 21798 03/03 JODIE RODRIGUEZ [facility] Electrocardiogram Electrocardiogram 48151 02/21 RAHUL SCHMITT [facility] Psychiatric Evaluation Review of Records and Reports Psychiatric Evaluation Review of Records and Reports 13094 11/14 WICHO SOMMERS [facility] Non-Physician Phone Call To Pt/Provider Intermed (11-20 min) Non-Physician Phone Call To Pt/Provider Intermed (11-20 min) 96644 06/22 JE WHITFIELD [facility] Psychiatric Therapy Individual Approximately 20-30 Minutes Psychiatric Therapy Individual Approximately 20-30 Minutes 73361 01/31 WICHO SOMMERS [facility] Social Work Individual Outpatient Counseling 45-50 Minutes Social Work Individual Outpatient Counseling 45-50 Minutes 66588 01/10 SALOMÓN OLIVAS [facility] Psychiatric Evaluation Comprehensive Examination Psychiatric Evaluation Comprehensive Examination 19276 01/06 KEVIN THURMAN [facility] Test Test 28669 08/05 KELSIE INIGUEZ [facility] Rapid Antigen Identification Streptococcus Group A Beta Hemolytic Rapid Antigen Identification Streptococcus Group A Beta Hemolytic 49476 08/05 MONI BOSS [facility] Non-Physician Phone Call To Patient/Provider Brief (5-10min) Non-Physician Phone Call To Patient/Provider Brief (5-10min) 11177 03/31 GENA FRANKS [facility] Gynecologic Services Intrauterine Device (IUD) Removal Gynecologic Services Intrauterine Device (IUD) Removal 40185 01/22 BRIE CRUZ [facility] Determination Of Refractive State Determination Of Refractive State 64168 12/31 LUZ MUHAMMAD [facility] Ophthalmological New Patient Start Comprehensive Care Ophthalmological New Patient Start Comprehensive Care 72416 12/31 LUZ MUHAMMAD [facility] Non-Physician Phone Call To Patient/Provider Brief (5-10min) Non-Physician Phone Call To Patient/Provider Brief (5-10min) 11034 12/19 VASU CARPENTER [facility] Influenza Virus Vaccine Live Intranasal 08/29 LEXY BRICENO [facility] Immunization Administration One Vaccine Immunization Administration One Vaccine 58466 08/29 LEXY BRICENO [facility] Gynecologic Services Intrauterine Device (IUD) Insertion Gynecologic Services Intrauterine Device (IUD) Insertion [id number] 08/20 BRIE CRUZ [facility] Non-Physician Phone Call To Patient/Provider Brief (5-10min) Non-Physician Phone Call To Patient/Provider Brief (5-10min) 47781 08/14 ALDO DAY [facility] Obstetrical Services Care Visit Obstetrical Services Care Visit 0503F 08/06 BRIE CRUZ [facility] OB Services Antepartum Care Only Subsequent Single Visit OB Services Antepartum Care Only Subsequent Single Visit 0502F 06/18 JE ARIZA [facility] Vaginal FEDERICO Prep Vaginal FEDERICO Prep 75471 06/11 BRIE CRUZ [facility] Vaginal Wet [place] Vaginal [place] 26304 06/11 BRIE CRUZ [facility] OB Services Antepartum Care Only Subsequent Single Visit OB Services Antepartum Care Only Subsequent Single Visit 0502F 06/11 BRIE CRUZ [facility] OB Services Antepartum Care Only Subsequent Single Visit OB Services Antepartum Care Only Subsequent Single Visit 0502F 06/03 JE ARIZA [facility] Immunization Administration One Vaccine Immunization Administration One Vaccine 48564 05/16 AL TALBOT [facility] Influenza Split Virus Vaccine Age 3+ Years Intramuscular 05/16 AL TALBOT [facility] OB Services Antepartum Care Only Subsequent Single Visit OB Services Antepartum Care Only Subsequent Single Visit 0502F 04/16 CESARIO JEFFERY [facility] OB Services Antepartum Care Only Subsequent Single Visit OB Services Antepartum Care Only Subsequent Single Visit 0502F 03/25 MARGARETTE TABARES [facility] OB Services Antepartum Care Only Subsequent Single Visit OB Services Antepartum Care Only Subsequent Single Visit 0502F 02/20 ZACK TOWNSEND [facility] OB Services Antepartum Care Only Subsequent Single Visit OB Services Antepartum Care Only Subsequent Single Visit 0502F 01/23 JE LUNA [facility] Psychiatric Therapy Individual Approximately 20-30 Minutes Psychiatric Therapy Individual Approximately 20-30 Minutes 14676 01/02 YARITZA ORTIZ [facility] OB Services Antepartum Care Only Subsequent Single Visit OB Services Antepartum Care Only Subsequent Single Visit 0502F 01/02 JE LNUA [facility] Intervention And Counseling On Ce ation Of Tobacco Use Intervention And Counseling On Cessation Of Tobacco Use 4000F 10/03 MARGARETTE TABARES [facility] Screening papanicolaou smear; obtaining, preparing and conveyance of cervical or vaginal smear to laboratory 09/18 WANDA FELICIANO [facility] Hepatitis B Vaccine (Active); 20 Years and Above 07/05 ADELINE GU [facility] Immunization Administration One Vaccine Immunization Administration One Vaccine 02358 07/05 ADELINE GU [facility] Hepatitis B Vaccine (Active); 20 Years and Above 04/04 ILA GARCIA [facility] Immunization Administration One Vaccine Immunization Administration One Vaccine 45590 04/04 ILA GARCIA [facility] Social History Combined list of available smoking, tobacco, and other social history from [facility] of Defense and Veterans Affairs facilities. Social History Type Response Date Comment Sourc e Sexual Orientation Ambula tory Pharmacy Gender identity Ambulator y Pharmacy Sex Representation Female (finding) Unknown Organization This section is an empty soc [...] Plan No data available for this section 11/19/2024 Ambulatory Pharmacy Functional Status Combined list of recent functional and cognitive assessments recorded at [facility] and [facility] ([facility] Functional [place] Measurement (FIM) Scale: 1 = Total Assistance (Subject = 0% +), 2 = Maximal Assistance (Subject = 25% +), 3 = Moderate Assistance (Subject = 50% +), 4 = Minimal Assistance (Subject = 75% +), 5 = Supervision, 6 = Modified [place] (Device), 7 = Complete [place] (Timely, Safely). Assessment Date/Time Source Assessment Type Assessment Skill Assessment Score Assessment Details No data available for this section
--- OUTSIDE RECORDS SUMMARY | 2024-11-19 09:16 | XMS_ITS | Encounter Summary ---
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 OFFICER Legal Sex Female 8:26 PM CDT Gender Identity Not on file Sexual Orientation Not on file documented as of this encounter Plan of Treatment Upcoming Encounters Date Type Department Care Team (Late st Contact Info) Description 03/08/2025 9:00 AM CDT Allied Health/Nurse Visit [facility] Family Medicine - [place] [address] [place] [address] Sandie Arriola MD [address] [place] [address] 03/15/2025 9:40 AM CDT Office Visit [facility] Family Medicine - [place] [address] [place] [address] Sandie Arriola MD [address] [place], [place] [address] documented as of this encounter Procedures Procedure [...] on filedocumented in this encounter Care Teams Pododermatologist Relationship Specialty Start Date End Date Noel Cerna MD [address] [place] [address] PCP - General FAMILY PRACTICE 06/04/20 03/05/24 Sandie Arriola MD [address] [place] [address] PCP - General FAMILY PRACTICE 03/06/24 Kehsa Quinones MD [address] [place] [address] Referring Physician OBJAMESN 10/08/17 documented as of this encounter
--- OUTSIDE RECORDS SUMMARY | 2024-11-19 09:17 | XMS_ITS | Patient Health Record ---
Author Organization [facility] Address [address] [facility] [address] [place] [address] Care Team Providers Care Box Hinge And Lock Attacher Name Role Phone Sandra Thakur Unavailable [phone] Allergies Allergen (clinical drug ingredient) Drug/Non Drug [...] Oxazepam (BZO) neg 0 - 300 ng/ml 6-wbcoyrzafy-1,1-dewkocvv-6,3-diphenylpyrrolidine (MADHAV P) neg 0 - 300 ng/ml Methamphetamine (MET) neg 0 - 1000 ng/ml Methylenedioxymethamphetamine (MDMA) neg 0 - 500 ng/ml Morphine (MOP 300/XRF8694) neg 0 - 300 ng/ml Methadone (MTD) [...] 3 Generalized anxiety disorder (F41.1) [facility] Referring Provider First Name Sandra Referring Provider Last Name Blaze Referring Provider Speciality Nurse Dory isaacs Referred Provider [facility] Referred Provider Specialty Psychiatry General [...] September. 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 Problems Problem Type SNOMED Code ICD Code Onset Dates Problem Status W/U Status Risk Notes Problem Generalized anxiety disorder (29139084) Generalized anxiety disorder (F41.1) Active confirmed Problem 427635248 Adjustment disorder with mixed anxiety and depressed mood (F43.23) Active confirmed Problem Insomnia disorder related to another mental disorder (81985064) Insomnia related to another mental disorder (F51.05) Active confirmed Problem Panic disorder (206332621) Panic attacks (F41.0) Active confirmed Problem Moderate recurrent major depression (26791676) Moderate recurrent major depression (F33.1) Active confirmed Vital Signs Heart Rate 81 /min 03/01/2024 Height-cm 157.48 cm 03/01/2024 Blood pressure diastolic 71 mm Hg 03/01/2024 Weight-kg 63.05 kg 03/01/2024 Height 62 in 03/01/2024 Blood pressure systolic 108 mm Hg 03/01/2024 Weight 139 lbs 03/01/2024 BMI 25.42 kg/m2 03/01/2024 Encounters Encounter Location Date Provider Diagnosis [facility] [address] [facility] [address] [address] 03/01/2024 Sandra Thakur Adjustment disorder with mixed anxiety and depressed mood F43.23 ; Moderate recurrent major depression F33.1 ; Generalized anxiety disorder F41.1 ; Insomnia related to another mental disorder F51.05 ; Panic attacks F41.0 and Marijuana user F12.90 [facility] [address] [address] 03/23/2024 Sandra Thakur Adjustment disorder with mixed anxiety and depressed mood F43.23 ; Moderate recurrent major depression F33.1 ; Generalized anxiety disorder F41.1 ; Insomnia related to another mental disorder F51.05 ; Panic attacks F41.0 and Marijuana user F12.90 [facility] [address] [facility] [address] [facility] [address] [place] [address] 03/01/2024 Sandra Thakur [facility] [place] [address] [place] [address] 03/09/2024 Sandra Flanaganakuadiamante [facility] [employer] [facility] [address] [place] [address] 03/23/2024 Sandra Blaze [facility] [employer] [facility] [address] [place] [address] 04/05/2024 Sandra Blaze [facility] [employer] [facility] [address] [facility] [address] [place] [address] 04/06/2024 Sandra Huddlestonaaron Assessments Encounter Date Diagnosis [...] Insured Coverage Start Date Coverage End Date [facility] [address] [place] [address] [id number] White, Tori Self - patient is the [...] tube removed Hospitalization History Reason Date(Month/Year) anti jayme depression 2013
[2024-11-19 09:31] VITALS: BP 138/76; PULSE 87; RESP 16; TEMP 36.4; O2SAT 100
--- OUTSIDE RECORDS SUMMARY | 2024-11-19 11:12 | XMS_ITS | Clinical Summary ---
Author Organization [facility] Address [facility] [place] [address] Care Team Providers Care Bus Driver Name Role Phone Kesha Quinones MD Unavailable [phone] Sandie Arriola MD Primary Care Provider + [...] (03/06/2024): Psychiatry is managing her trazodone. Asthma ([facility]) Vqdqyjp-Pzwaw-Nehld disease Overview (03/06/2024): Saw neurology and tried taking gabapentin but did not tolerate. Managing with symptoms without any intervention at this time. Resolved Problems Problem Noted Date Diagnosed Date Resolved Date Condition influencing health status 02/29/2024 03/06/2024 Encounters Date Type Department Care Team Description 08/24/2024 Telephone [facility] Family Medicine - [place] [address] [facility] [address] [place] [address] Sandie Arriola MD Question from Last 3 [...] Sex Assigned at Female 08/15/2024 8:20 AM FRENCH DRAWER Legal Sex Female 8:26 PM CDT Gender Identity Not on file Sexual Orientation Not on file Last Filed Vital Signs Vital Sign Reading Time Taken Comments Blood Pressure 126/75 08/14/2024 1:12 PM FRENCH DRAWER Pulse 78 08/14/2024 1:12 PM FRENCH DRAWER Temperature 36.4 C (97.6 F) 08/14/2024 1:12 PM FRENCH DRAWER Respiratory Rate 17 04/24/2024 10:30 AM CDT Oxygen Saturation 97% 08/14/2024 1:12 PM FRENCH DRAWER Inhaled Oxygen Concentration - - Weight 65.8 kg (145 lb) 08/14/2024 1:12 PM FRENCH DRAWER Height 156.2 cm (5' 1.5 ) 08/14/2024 1:12 PM FRENCH DRAWER Body Mass Index 26.95 08/14/2024 1:12 PM FRENCH DRAWER Plan of Treatment Upcoming Encounters Date Type Department Care Team (Late st Contact Info) Description 03/08/2025 9:00 AM CDT Allied Health/Nurse Visit [address] [address] Sandie Arriola MD [address] [facility] [address] [place] [phone] 03/15/2025 9:40 AM CDT Office Visit [address] [address] Sandie Arriola MD [address] [facility] [address] [place] [phone] Health Maintenance Due Date Last Done Comments [...] or Tdap) 11/30/2033 12/01/2023, 11/20/2013 PHQ-2 (Physician Harper) Completed 08/03/2024 Meningococcal B Vaccine Aged Out [...] Relevant to Health [place] [address] Care Teams Bus Driver Relationship Specialty Start Date End Date Sandie Arriola MD [address] [place] [phone] PCP - General FAMILY PRACTICE 03/06/24 Kesha Quinones MD [address] [place] [address] Referring Physician KULWINDER 10/08/17
--- OUTSIDE RECORDS SUMMARY | 2024-11-19 11:12 | XMS_ITS | Continuity of Care Document ---
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 [facility] FAMRES Tm Blue) OUTPATIENT [id number] f/u ibs/gal lbladde r ALDO DAY 04/15 Released w/o Limitations [address] [place] [address] [place] [employer] [facility])(S cott [facility] FAM[facility] Tm Blue) [address] [place] [address] [place] [employer] [facility])(Environment Friendly Landscape Designer ecology) OUTPATIENT [id number] bp check and review bcp - [phone] BRIE CRUZ 04/17 Released w/o Limitations [address] [place] [address] [place] [employer] [facility])(G ynecolo gy) [address] [place] [address] [place] [employer] [facility])(Fam jesus Med Tm B Non-AD BCC) OUTPATIENT [id number] Congest ion [phone] MONI BOSS 08/05 Released w/o Limitations [address] [place] [address] [place] [employer] ([facility])(F amily Med Tm B Non-AD BCC) [address] [place] [address] [place] [employer] [facility])(Environment Friendly Landscape Designer ecology) OUTPATIENT [id number] pregnan cy test KELSIE INIGUEZ 08/05 Released w/o Limitations [address] [place] [address] [place] [employer] ([facility])(G ynecolo gy) [address] [place] [address] [place] [facility])(War rior Op Med Cln Tm A Ad) TELE CONSULT [id number] Patient is request ing a refill on med Amitrip tyline. SIDDHARTH CURTIS 08/[address] [place] [address] [place] [facility])(W arrior Op Med Cln Tm A Ad) [address] [place] [address] [place] [facility])(Fam jesus Med Tm B Non-AD BCC) OUTPATIENT [id number] wrist pain [phone] EFREN MAYA 09/17 Released w/o Limitations [address] [place] [address] [place] [facility])(F amily Med Tm B Non-AD BCC) [address] [place] [address] [place] [facility])(War rior Op Med Cln Tm A Ad) OUTPATIENT [id number] feeling nervous all the time [phone] EFREN MAYA 02/11 Released w/o Limitations [address] [place] [address] [place] [facility]W arrior Op Med Cln Tm A Ad) [address] [place] [address] [place] [facility])(War rior Op Med Cln Tm A Ad) OUTPATIENT [id number] abd pain [phone] EFREN MAYA 04/27 Released w/o Limitations [address] [place] [address] [place] [facility])(W arrior Op Med Cln Tm A Ad) [address] [place] [address] [place] [facility])(War rior Op Med Cln Tm A Ad) TELE CONSULT [id number] Lab Result Review results with patient EFREN MAYA 04/[address] [place] [address] [place] [facility])(W arrior Op Med Cln Tm A Ad) [address] [place] [address] [place] [facility])(War rior Op Med Cln Tm A Ad) TELE CONSULT [id number] Notes Entered by: GENA MARTE 17 Dec 2011 1237 ------- ------- ------- ------- -- Tcon for possibl e sinus infecti on CHANCE Maya ph [phone] EVONNE Harrison 12/[address] [place] [address] [place] [facility])(W arrior Op Med Cln Tm A Ad) [address] [place] [address])(War rior Op Med Cln Tm A Ad) OUTPATIENT [id number] sinus infecti on [id number] EFREN MAYA 12/23 Released w/o Limitations [address] [place] [address])(W arrior Op Med Cln Tm A Ad) [address] [place] [address])(War rior Op Med Cln Tm A Ad) TELE CONSULT [id number] Notes Entered by: Duglas SILVESTRE 09 Mar 2012 1342 ------- ------- ------- ------- -- Med refill Nexium 40 mg daily Lance /byron [id number] ANDRAE SIMS 03/[address] [place] [address])(W arrior Op Med Cln Tm A Ad) [address] [place] [address])(War rior Op Med Cln Tm A Ad) OUTPATIENT [id number] cough congest ion [phone] LOIS IBARRA 06/09 Released w/o Limitations [address] [place] [address])(W arrior Op Med Cln Tm A Ad) [address] [place] [address])(Environment Friendly Landscape Designer ecology) TELE CONSULT [id number] Notes Entered by: Toby YA 10 Jun 2012 1448 ------- ------- ------- ------- -- Walk in HCG LARY NICHOLAS 06/[address] [place] [address])(Geoffrey razo gy) [address] [place] [address])(Fam jesus Med Tm B Non-AD BCC) TELE CONSULT [id number] Notes Entered by: SHERYL NUNO 22 Jun 2012 0925 ------- ------- ------- ------- -- Vaginal pain, JE Vincent 06/[address] [place] [address])(F amily Med Tm B Non-AD BCC) [address] [place] [address])(Environment Friendly Landscape Designer ecology) TELE CONSULT [id number] Notes Entered by: LEVON FLORES 22 Jun 2012 1117 ------- ------- ------- ------- -- F/u appt for ER visit TIRSOROCIO LARY L 06/[address] [place] [address])(G ynecodenis gy) [address] [place] [address])(Environment Friendly Landscape Designer ecology) TELE CONSULT [id number] Notes Entered by: KARTHIK SANDOVAL 06 Jul 2012 1352 ------- ------- ------- ------- -- Resched pia [place] appt - Josue f - [phone] MARY JO ELKINS 07/06 Referred for Appointment [address] [place] [address])(G yalka gy) [address] [place] [address])(Environment Friendly Landscape Designer ecology) OUTPATIENT [id number] Follow up ER visit, lower pelvic pain, UTI, dysuria and mild inconti ANI Evans 07/15 Released w/o Limitations [address] [place] [address])(G ynecodenis gy) [address] [place] [address])(Ob/ Environment Friendly Landscape Designer) TELE CONSULT [id number] Notes Entered by: TESSA SORIA 12 Aug 2012 1007 ------- ------- ------- ------- -- Lab result VERONICA JOHNS 08/[address] [place] [address])(O b/Environment Friendly Landscape Designer) [address] [place] [address])(War rior Op Med Cln Tm A Ad) TELE CONSULT [id number] Notes Entered by: SHERYL NUNO 17 Aug 2012 1020 ------- ------- ------- ------- -- Vaginal itching /burnin ANDRAE Magaña 08/[address] [place] [address])(W arrior Op Med Cln Tm A Ad) [address] [place] [address])(Environment Friendly Landscape Designer ecology) TELE CONSULT [id number] Notes Entered by: TESSA SORIA 30 Aug 2012 1003 ------- ------- ------- ------- -- US result VERONICA JOHNS 08/[address] [place] [address])(G ynecolo gy) [address] [place] [address])([facility] Team 3) OUTPATIENT [id number] neck and shoulde r pain x 2 weeks; denies injury, LOIS IBARRA 10/11 Released w/o Limitations [address] [place] [address])([facility] Team 3) [address] [place] [address])([facility] Team 3) TELE CONSULT [id number] Notes Entered by: SHERYL NUNO 19 Oct 2012 1356 ------- ------- ------- ------- -- Flu symptom s ANDRAE Nguyen 10/[address] [place] [address])([facility] Team 3) [address] [place] [address])([facility] Team 3) TELE CONSULT [id number] Notes Entered by: SOPHIA LARA 08 Nov 2012 1206 ------- ------- ------- ------- -- Ling Devlin [id number] ANDRAE HEDRICK 11/[address] [place] [address])([facility] Team 3) [address] [place] [address])(War rior Op Med Cln Tm A Ad) TELE CONSULT [id number] Notes Entered by: OWEN NEGRETE 21 Nov 2012 0824 ------- ------- ------- ------- -- Josue ruelas/ANDRAE Mariscal M 11/21 [facility])(W arrior Op Med Cln Tm A Ad) [address] [place] [address])(War rior Op Med Cln Tm A Ad) TELE CONSULT [id number] Notes Entered by: KANU ANGEL 14 Dec 2012 1129 ------- ------- ------- ------- -- Network Results - Physica l Therapy - 3 LOIS IBARRA 12/14 [facility])(W arrior Op Med Cln Tm A Ad) [address] [place] [address])(Uto tt [facility] Team 3) TELE CONSULT [id number] Notes Entered by: SHAUN JOHNSTON 22 Dec 2012 1443 ------- ------- ------- ------- -- Med Refill- Josue ruelas/ ANDRAE SIMS 12/22 [facility] [place] [facility])(S [facility] Team 3) [address] [place] [address])(War rior Op Med Cln Tm A Ad) TELE CONSULT [id number] Notes Entered by: KANU ANGEL 23 Jan 2013 1211 ------- ------- ------- ------- -- Network Results - Physica l Therapy - 3 MANN BUCIO 01/23 [facility] [place] [facility]W arrior Op Med Cln Tm A Ad) [address] [place] [address])([facility] Team 3) TELE CONSULT [id number] Notes Entered by: Duglas SILVESTRE 25 Jan 2013 1510 ------- ------- ------- ------- -- Med refill Leonel MACARENA THOMAS I 01/[address] [place] [address] [place] [facility])(S cott [facility] Team 3) [facility])(War rior Op Med Cln Tm A Ad) OUTPATIENT [id number] acid relux-m ed not working , ring in L ear [id number] RAHUL SCHMITT 02/21 Released w/o Limitations [address] [place] [address])(W arrior Op Med Cln Tm A Ad) [address] [place] [address])(War rior Op Med Cln Tm A Ad) TELE CONSULT [id number] Notes Entered by: RAHUL SCHMITT 22 Feb 2013 1254 ------- ------- ------- ------- -- F/u from labs RAHUL SCHMITT 02/[address] [place] [address])(W arrior Op Med Cln Tm A Ad) [address] [place] [address])(War rior Op Med Cln Tm A Ad) TELE CONSULT [id number] Notes Entered by: STARLA MARES 03 Mar 2013 1510 ------- ------- ------- ------- -- Ear pain/Giraldo bereniceraabebe / JODIE RODRIGUEZ 03/03 Referred for Appointment [address] [place] [address])(W arrior Op Med Cln Tm A Ad) [address] [place] [address])(War rior Op Med Cln Tm A Ad) OUTPATIENT [id number] ear pain JYOTHI BATES 03/06 Released w/o Limitations [address] [place] [address])(W arrior Op Med Cln Tm A Ad) [address] [place] [address])(War rior Op Med Cln Tm A Ad) TELE CONSULT [id number] Notes Entered by: SOPHIA LARA 09 Mar 2013 1506 ------- ------- ------- ------- -- Ling Colon [facility] [id number] JODIE RODRIGUEZ 03/09 Referred for Appointment [address] [place] [address])(W arrior Op Med Cln Tm A Ad) [address] [place] [address])(Environment Friendly Landscape Designer ecology) TELE CONSULT [id number] Notes Entered by: SUSAN CONTRERAS 27 Apr 2013 0942 ------- ------- ------- ------- -- Walk in for pregnan cy test YONG FLORES 04/[address] [place] [address])(G ybraxtoncolo gy) [address] [place] [address])(War rior Op Med Cln Tm A Ad) TELE CONSULT [id number] Notes Entered by: Duglas SILVESTRE 28 Apr 2013 1157 ------- ------- ------- ------- -- Sinus infecti on [facility] es EB DOMINGO 04/[address] [place] [address])(W arrior Op Med Cln Tm A Ad) [address] [place] [address])(War rior Op Med Cln Tm A Ad) TELE CONSULT [id number] Notes Entered by: STARLA MARES 01 May 2013 08 ------- ------- ------- ------- -- Appt request /beverley lomas/618 [phone] EB DOMINGO 05/[address] [place] [address])(W arrior Op Med Cln Tm A Ad) [address] [place] [address])(Ob/ Environment Friendly Landscape Designer) OUTPATIENT [id number] New OB with IBS EDC approx Oct 14. CLEMENTINA DAVILA 05/01 Released w/o Limitations [address] [place] [address])(O b/Environment Friendly Landscape Designer) [address] [place] [address])(Ob/ Environment Friendly Landscape Designer) OUTPATIENT [id number] Notes Entered by: JENI CHEN 05 May 2013 1132 ------- ------- ------- ------- -- NIC RAHMAN 5May14/ repeat u/s CLEMENTINA DAVILA 05/05 [facility]ased w/o Limitations [facility] ([facility])(O b/Environment Friendly Landscape Designer) [address] [place] [address])(Ob/ Environment Friendly Landscape Designer) TELE CONSULT [id number] Notes Entered by: MARY JO ELKINS 10 May 2013 1250 ------- ------- ------- ------- -- Constip atCLEMENTINA Lees 05/[address] [place] [address])(O b/Environment Friendly Landscape Designer) [facility])(Ob/ Environment Friendly Landscape Designer) OUTPATIENT [id number] NIC RAHMAN 5MAY14 GUERRERO DWYER 05/25 Released w/o Limitations [address] [place] [address] ([facility])(O b/Environment Friendly Landscape Designer) [facility])(Ob/ Environment Friendly Landscape Designer) TELE CONSULT [id number] Notes Entered by: MARY JO ELKINS 03 Jul 2013 1451 ------- ------- ------- ------- -- Medicat MARY JO Guerrero 07/03 [facility])(O b/Environment Friendly Landscape Designer) [facility])(Ob/ Environment Friendly Landscape Designer) TELE CONSULT [id number] Notes Entered by: MARY JO ELKINS 05 Jul 2013 1309 ------- ------- ------- ------- -- Cold Symptom s MARY JO ELKINS 07/05 [facility]O b/Environment Friendly Landscape Designer) [facility])(Ob/ Environment Friendly Landscape Designer) OUTPATIENT [id number] NIC RAHMAN December 13 VIOLET WALKER 07/06 Released w/o Limitations [facility] [place] ([facility])(O b/Environment Friendly Landscape Designer) [facility])(Ob/ Environment Friendly Landscape Designer) TELE CONSULT [id number] Notes Entered by: MARY JO ELKINS 06 Jul 2013 1426 ------- ------- ------- ------- -- [facility] MARY JO Corley 07/[address] [place] [address])(O b/Environment Friendly Landscape Designer) [address] [place] [address])(Ob/ Environment Friendly Landscape Designer) TELE CONSULT [id number] Notes Entered by: MARY JO ELKINS 17 Jul 2013 1109 ------- ------- ------- ------- -- Anxiety MARY JO ELKINS 07/[address] [place] [address])(O b/Environment Friendly Landscape Designer) [address] [place] [address])(Ob/ Environment Friendly Landscape Designer) TELE CONSULT [id number] Notes Entered by: LASHELL PARIS 18 Jul 2013 0758 ------- ------- ------- ------- -- [facility] GUERRERO DWYER 07/[address] [place] [address])(O b/Environment Friendly Landscape Designer) [address] [place] [address])(Ob/ Environment Friendly Landscape Designer) OUTPATIENT [id number] evaluat ion for anti-an xiety medicat ion d/t acute panic attacks GUERRERO DWYER 07/18 Released w/o Limitations [address] [place] [address])(O b/Environment Friendly Landscape Designer) [address] [place] [address])(Ob/ Environment Friendly Landscape Designer) TELE CONSULT [id number] Notes Entered by: MARY JO ELKINS 11 Aug 2013 1606 ------- ------- ------- ------- -- Medicat ion Refill GUERRERO DWYER 08/[address] [place] [address])(O b/Environment Friendly Landscape Designer) [address] [place] [address])(Ob/ Environment Friendly Landscape Designer) TELE CONSULT [id number] Notes Entered by: LASHELL PARIS 16 Aug 2013 1040 ------- ------- ------- ------- -- Network Results -OBSTET RICS 08/14/13 ANI CHOI 08/[address] [place] [address])(O b/Environment Friendly Landscape Designer) [address] [place] [address])(Ob/ Environment Friendly Landscape Designer) OUTPATIENT [id number] nic - edc december 13 GUERRERO DWYER 08/17 Released w/o Limitations [address] [place] [address] [place] [facility])(O b/Environment Friendly Landscape Designer) [address] [place] [address])(Ob/ Environment Friendly Landscape Designer) TELE CONSULT [id number] Notes Entered by: ST KATERYNA DAVILA 27 Aug 2013 1307 ------- ------- ------- ------- -- anxiety CLEMENTINA DAVILA 08/[address] [place] [address])(O b/Environment Friendly Landscape Designer) [address] [place] [address])(Ob/ Environment Friendly Landscape Designer) OUTPATIENT [id number] follow up appt/an xiety attacks /treatm ent plan GUERRERO DWYER 08/28 Released w/o Limitations [address] [place] [address])(O b/Environment Friendly Landscape Designer) [address] [place] [address] [place] [facility])(Ob/ Environment Friendly Landscape Designer) TELE CONSULT [id number] Notes Entered by: Aster DWYER 29 Aug 2013 0908 ------- ------- ------- ------- -- Anxiety GUERRERO DWYER 08/[address] [place] [address])(O b/Environment Friendly Landscape Designer) [address] [place] [address])(Ob/ Environment Friendly Landscape Designer) TELE CONSULT [id number] Notes Entered by: Duglas DAVIES 05 Sep 2013 1131 ------- ------- ------- ------- -- ANTONIO Puente 09/[address] [place] [address])(O b/Environment Friendly Landscape Designer) [address] [place] [address])(Ob/ Environment Friendly Landscape Designer) OUTPATIENT [id number] f/u hospita lizatio n/anxie lalita STEPH ANI Jim Natarajan 09/08 Released w/o Limitations [address] [place] [address])(O b/Environment Friendly Landscape Designer) [address] [place] [address])(Ob/ Environment Friendly Landscape Designer) TELE CONSULT [id number] Notes Entered by: ME JARED CANO 12 Sep 2013 1146 ------- ------- ------- ------- -- Insomni a 24 6/7 week Ob-per our convers ation GUERRERO DWYER 09/[address] [place] [address])(O b/Environment Friendly Landscape Designer) [address] [place] [address])(Sco [facility] Res Tm Green) TELE CONSULT [id number] Notes Entered by: Jim ENRIQUEZ 12 Sep 2013 1747 ------- ------- ------- ------- -- [facility], THELMA Skelton 09/[address] [place] [address])([facility] Res Tm Green) [address] [place] [address])(Ob/ Environment Friendly Landscape Designer) TELE CONSULT [id number] Notes Entered by: MARY JO ELKINS 13 Sep 2013 1540 ------- ------- ------- ------- -- MACARENA Rao I 09/[address] [place] [address])(O b/Environment Friendly Landscape [employer]er) [address] [place] [address])(Ob/ Environment Friendly Landscape Designer) OUTPATIENT [id number] NEW MEDICAT ION FOLLOW UP/EDC DECEMBER 13 GUERRERO DWYER 09/15 Released w/o Limitations [address] [place] [address])(O b/Environment Friendly Landscape [employer]er) [address] [place] [address])(Ob/ Environment Friendly Landscape Designer) TELE CONSULT [id number] Notes Entered by: MARY JO ELKINS 19 Sep 2013 1505 ------- ------- ------- ------- -- Medicat ion Increas e GUERRERO DWYER 09/[address] [place], [place] [address]B ([facility])(O b/Environment Friendly Landscape Designer) [address] [place] [address] [place] [employer] ([facility])(Environment Friendly Landscape Designer ecology) TELE CONSULT [id number] Notes Entered by: LASHELL PARIS 20 Sep 2013 0816 ------- ------- ------- ------- -- Network Results -OBSTET RICS 09/12/13 ANI CHOI 09/[address] [place] [address] [employer] ([facility])(G ynecolo gy) [address] [place] [address] [employer] ([facility])(Ob/ Environment Friendly Landscape Designer) OUTPATIENT [id number] nic edc december 13 THELMA HA 09/21 Released with Work/Duty Limitations [address] [place] [address] [employer] ([facility])(O b/Environment Friendly Landscape Designer) [address] [place], [place] [address]B ([facility])(Ob/ Environment Friendly Landscape Designer) OUTPATIENT [id number] HROB EDCDecember 13 GUERRERO DWYER 09/25 Released w/o Limitations [address] [place] [address] [employer] ([facility])(O b/Environment Friendly Landscape Designer) [address] [place] [address] [employer] ([facility])(Ob/ Environment Friendly Landscape Designer) TELE CONSULT [id number] Notes Entered by: YAZAN MILLS 26 Sep 2013 0920 ------- ------- ------- ------- -- HROB-casie bradshaw/ CLEMENTINA Perez 09/[address] [place] [address] [place] [employer] ([facility])(O b/Environment Friendly Landscape Designer) [address] [place] [address] [employer] ([facility])(Ob/ Environment Friendly Landscape Designer) TELE CONSULT [id number] Notes Entered by: MARY JO ELKINS 02 Oct 2013 1052 ------- ------- ------- ------- -- [facility] MARY JO Corley 10/[address] [place] [address] [employer] ([facility])(O b/Environment Friendly Landscape Designer) [address] [place] [address] [employer] ([facility])(Environment Friendly Landscape Designer ecology) TELE CONSULT [id number] Notes Entered by: Aster DWYER 03 Oct 2013 0803 ------- ------- ------- ------- -- Abnorma l glucose screen TARIQJASWINDERGUERRERO Reynaldo 10/[address] [place] [address] [employer] [place] [employer] ([facility])(G ynecolo gy) [address] [place] [address] [place] [employer] ([facility])(Ob/ Environment Friendly Landscape Designer) OUTPATIENT [id number] HROB/ EDC December 13 YULIYAZACKGUERRERO B 10/05 Released w/o Limitations [facility] [employer] ([facility])(O b/Environment Friendly Landscape Designer) [address] [place] [address] [employer] [place] [employer] ([facility])(Environment Friendly Landscape Designer ecology) TELE CONSULT [id number] Notes Entered by: Aster DWYER 06 Oct 2013 1542 ------- ------- ------- ------- -- Elevate d 3 hr GTT MACARENA THOMAS I 10/[address] [place] [address] [place] [employer] ([facility])( kamalahumble gy) [address] [place] [address] [place] [employer] ([facility])(Ob/ Environment Friendly Landscape Designer) OUTPATIENT [id number] HROB/ EDC [id number] TARIQGUERRERO SAN Reynaldo 10/13 Released w/o Limitations [address] [place] [address] [employer] [place] [employer] ([facility])(O b/Environment Friendly Landscape Designer) [address] [place] [address] [place] [employer] ([facility])(Ob/ Environment Friendly Landscape Designer) TELE CONSULT [id number] Notes Entered by: LASHELL PARIS 18 Oct 2013 0905 ------- ------- ------- ------- -- Network Results -OBSTET RICS 10/05/13 CLEMENTINA DAVILA 10/18 [facility] [employer] ([facility])(O b/Environment Friendly Landscape Designer) [facility] [employer] ([facility])(Ob/ Environment Friendly Landscape Designer) OUTPATIENT [id number] HROB/ EDC December 13 YULIYAZACKGUERRERO B 10/19 Released w/o Limitations [address] [place] [address] [employer] ([facility])(O b/Environment Friendly Landscape Designer) [facility] [employer] ([facility])(Ob/ Environment Friendly Landscape Designer) TELE CONSULT [id number] Notes Entered by: LASHELL PARIS 20 Oct 2013 1131 ------- ------- ------- ------- -- Network Results -OBSTET RICS 10/06/13 GUERRERO DWYER 10/20 [facility] [place] [employer] ([facility])(O b/Environment Friendly Landscape Designer) [address] [place] [address] [place] ([facility])([facility]) TELE CONSULT [id number] Notes Entered by: CATHY TOMAS 25 Oct 2013 1058 ------- ------- ------- ------- -- Message from OB TEAM CATHY TOMAS 10/[address] [place] [address] [employer] [place] [employer] ([facility])(O [facility]) [facility] [place] [employer] ([facility])(Environment Friendly Landscape Designer ecology) TELE CONSULT [id number] Notes Entered by: Aster DWYER 26 Oct 2013 0954 ------- ------- ------- ------- -- Pt phoneca GUERRERO DWYER 10/[address] [place] [address] Group [place] [employer] ([facility])(G ynecolo gy) [facility] [place] [facility])(Ob/ Environment Friendly Landscape Designer) OUTPATIENT [id number] HROB EDC [id number] CLEMENTINA DAVILA 10/26 Released w/o Limitations [facility] [place] [employer] ([facility])(O b/Environment Friendly Landscape Designer) [address] [place] [address] [place] [employer] ([facility])(Ob/ Environment Friendly Landscape Designer) TELE CONSULT [id number] Notes Entered by: RADHA LANZA 27 Oct 2013 1511 ------- ------- ------- ------- -- Medicat ion GAYE Nieto 10/27 [facility] [employer] ([facility])(O b/Environment Friendly Landscape Designer) [address] [place] [address] [employer] ([facility])(Ob/ Environment Friendly Landscape Designer) TELE CONSULT [id number] Notes Entered by: RADHA LANZA 30 Oct 2013 0915 ------- ------- ------- ------- -- Medicat ion reactio GAYE Melissa 10/30 [facility] [employer] [facility])(O b/Environment Friendly Landscape Designer) [facility] [place] [employer] ([facility])([facility]) OUTPATIENT [id number] [facility] REYES CHOWDHURY 11/03 Released w/o Limitations [address] [place] [address] [place] [employer] ([facility])(N utritio nal Medicin e) [facility] [place] [employer] ([facility])(Ob/ Environment Friendly Landscape Designer) TELE CONSULT [id number] Notes Entered by: RADHA LANZA 08 Nov 2013 0803 ------- ------- ------- ------- -- Refill prescri ption GAYE DECKER 11/[address] [place] [address] Group [place] [facility])(O b/Environment Friendly Landscape Designer) [address] [place] [address] [place] [facility])(War rior Op Med Cln Tm A Ad) OUTPATIENT [id number] Cough/C ongesti on CHETNA MESA 11/08 Released w/o Limitations [address] [place] [address] [place] [employer] ([facility])(W arrior Op Med Cln Tm A Ad) [facility] [place] [facility])(Ob/ Environment Friendly Landscape Designer) OUTPATIENT [id number] HROB EDC [id number] GUERRERO DWYER 11/13 Released w/o Limitations [address] [place] [address] [place] [employer] ([facility])(O b/Environment Friendly Landscape Designer) [facility] [place] [facility])(Ob/ Environment Friendly Landscape Designer) OUTPATIENT [id number] HROB/ED C December 13 CLEMENTINA DAVILA 11/27 Released w/o Limitations [address] [place] [address] [place] [employer] ([facility])(O b/Environment Friendly Landscape Designer) [facility] [employer] ([facility])(Ob/ Environment Friendly Landscape Designer) TELE CONSULT [id number] Notes Entered by: JANINA MUHAMMAD 04 Dec 2013 0933 ------- ------- ------- ------- -- Nausea and dry heaving MACARENA THOMAS I 12/[address] [place] [address] [employer] ([facility])(O b/Environment Friendly Landscape Designer) [facility] [place] [employer] ([facility])(Ob/ Environment Friendly Landscape Designer) TELE CONSULT [id number] Notes Entered by: LASHELL PARIS 11 Dec 2013 1121 ------- ------- ------- ------- -- Network Results -OBSTET RICS 12/04/13 TARIQGUERRERO SAN Reynaldo 12/11 [employer] ([facility])(O b/Environment Friendly Landscape Designer) [employer] ([facility])(Ob/ Environment Friendly Landscape Designer) OUTPATIENT [id number] Post check up/del December 13 CLEMENTINA DAVILA 12/21 Released w/o Limitations [employer] ([facility])(O b/Environment Friendly Landscape Designer) [employer] ([facility])(Ob/ Environment Friendly Landscape Designer) OUTPATIENT [id number] 6WPP/ Del 05 Dec 2013 ANI CHOI 01/23 Released w/o Limitations [employer] ([facility])(O b/Environment Friendly Landscape Designer) [employer] ([facility])(Environment Friendly Landscape Designer ecology) OUTPATIENT [id number] [facility] ALYSSA Michel 02/20 Released w/o Limitations [employer] ([facility])(Geoffrey razo gy) [facility] [employer] ([facility])(War rior Op Med Cln Tm A Ad) TELE CONSULT [id number] Notes Entered by: Abelino SILVESTRE 01 May 2014 1304 ------- ------- ------- ------- -- SOFIA RUVALCABA/Gayle ceballos/ [phone] EVONNE BRAR 05/01 [employer] ([facility])(W arrior Op Med Cln Tm A Ad) [employer] ([facility])(Environment Friendly Landscape Designer ecology) OUTPATIENT [id number] LUISANA ALEXANDER 06/04 Released w/o Limitations [employer] ([facility])(Geoffrey razo gy) [employer] ([facility])(Environment Friendly Landscape Designer ecology) OUTPATIENT [id number] Bekah bojorquez Inserti on [phone] LUISANA DEVLIN 06/18 Released w/o Limitations [employer] ([facility])(G ynecolo gy) Medical [facility])(War rior Op Med Cln Tm A Ad) OUTPATIENT [id number] right wrist pain - [id number] CHETNA MESA 07/09 Released w/o Limitations [facility])(W arrior Op Med Cln Tm A Ad) [facility])(Environment Friendly Landscape Designer ecology) OUTPATIENT [id number] [facility] placeme nt check [phone] LUISANA DEVLIN 09/07 Released w/o Limitations [facility] Group [facility])(G ynecolo gy) [facility] Group [facility])(War rior Op Med Cln Tm A Ad) TELE CONSULT [id number] Notes Entered by: ROZ GASTELUM 21 Sep 2014 1006 ------- ------- ------- ------- -- SX - multipl e sx/[facility]/ * MANN COLON 09/21[facility])(W arrior Op Med Cln Tm A Ad) [facility])(War rior Op Med Cln Tm A Ad) OUTPATIENT [id number] Ovarian Cyst, ER Visit LAMAR Donnelly 09/24 Released w/o Limitations [facility])(W arrior Op Med Cln Tm A Ad) [facility])(Environment Friendly Landscape Designer ecology) OUTPATIENT [id number] Possibl e Ovarion Cyst GUERRERO DWYER 09/24 Released w/o Limitations [facility] Group [facility])(G ynecolo gy) [address] [place] [address])(Ob/ Environment Friendly Landscape Designer) TELE CONSULT [id number] Notes Entered by: Aster DWYER 04 Oct 2014 1623 ------- ------- ------- ------- -- U/S results VERONICA JOHNS 10/[address] [place] [address])(O b/Environment Friendly Landscape Designer) [address] [place] [address])(War rior Op Med Cln Tm A Ad) OUTPATIENT [id number] pain in both feet -L is worse x 1wk [id number] TENZIN HOPE 12/11 Released w/o Limitations [address] [place] [address] [place] [facility])(W arrior Op Med Cln Tm A Ad) [address] [place] [address])(War rior Op Med Cln Tm A Ad) TELE CONSULT [id number] Notes Entered by: KANU ANGEL 29 Jan 2015 1253 ------- ------- ------- ------- -- Network results Neurolo gy 5 TENZIN HOPE 01/[address] [place] [address])(W arrior Op Med Cln Tm A Ad) [address] [place] [address])(Environment Friendly Landscape Designer ecology) OUTPATIENT [id number] red,bli stery [facility] [phone] ALYSSA COLÓN 02/05 Released w/o Limitations [address] [place] [address])(Geoffrey razo gy) [address] [place] [address])(Environment Friendly Landscape Designer ecology) TELE CONSULT [id number] Notes Entered by: ANDREWS COLÓN 12 Feb 2015 1635 ------- ------- ------- ------- -- results LAMAR ALVARADO 02/[address] [place] [address])(G dung gy) [address] [place] [address])(War rior Op Med Cln Tm A Ad) TELE CONSULT [id number] Notes Entered by: KANU ANGEL 01 Mar 2015 0938 ------- ------- ------- ------- -- Network results Neurolo gy 5 TENZIN HOPE 03/[address] [place] [address])(W arrior Op Med Cln Tm A Ad) [address] [place] [address])(Environment Friendly Landscape Designer ecology) TELE CONSULT [id number] Notes Entered by: JUAN ALBERTO GRIMM 10 Apr 2015 1049 ------- ------- ------- ------- -- Sx - Multipl e sx/Layla donnelly/Jaymie [phone] ANANDA WILLAMS 04/[address] [place] [address])(G ynecolo gy) [address] [place] [address])(Environment Friendly Landscape Designer ecology) OUTPATIENT [id number] pelvic pain, vaginal bleedin g x 2weeks AMAYA BAEZ 04/11 Released w/o Limitations [address] [place] [address])(G ynecolo gy) [address] [place] [address])(War rior Op Med Cln Tm A Ad) TELE CONSULT [id number] Notes Entered by: SAILAJA DEVLIN 15 Apr 2015 0818 ------- ------- ------- ------- -- Lab Results / Gil limon / KEL THOMPSON 04/[address] [place] [address])(W arrior Op Med Cln Tm A Ad) [address] [place] [address])(War rior Op Med Cln Tm A Ad) TELE CONSULT [id number] Notes Entered by: ALESIA BARRAGAN 26 Apr 2015 1103 ------- ------- ------- ------- -- ER Follow- up/ Gil limon/ 741.401 2 MANN COLON 04/[address] [place] [address])(W arrior Op Med Cln Tm A Ad) [address] [place] [address])(Environment Friendly Landscape Designer ecology) OUTPATIENT [id number] discuss tubalig ation [id number] GUERRERO DWYER 04/30 Released w/o Limitations [address] [place] [address])(G ynecolo gy) [address] [place] [address])(War rior Op Med Cln Tm A Ad) TELE CONSULT [id number] Notes Entered by: JEN BADILLO 23 May 2015 1046 ------- ------- ------- ------- -- Network Results -GASTRO ENTEROL OGY 5 TENZIN HOPE 05/[address] [place] [address])(W arrior Op Med Cln Tm A Ad) [address] [place] [address])(Environment Friendly Landscape Designer ecology) TELE CONSULT [id number] Notes Entered by: GILSON THOMSON 04 Jun 2015 0811 ------- ------- ------- ------- -- Cancel for Bella bojorquez/t jad- GILSON Osuna 06/[address] [place] [address])(G yalka gy) [address] [place] [address])(Environment Friendly Landscape Designer ecology) TELE CONSULT [id number] Notes Entered by: Aster DWYER 05 Jun 2015 0859 ------- ------- ------- ------- -- U/S result VERONICA JOHNS 06/[address] [place] [address])(G ybraxtoncodenis gy) [address] [place] [address])(War rior Op Med Cln Tm A Ad) OUTPATIENT [id number] Bad cough, headach e, nasal and chest congest ion [id number] PLACIDO MERAZ 06/05 Released w/o Limitations [address] [place] [address])(W arrior Op Med Cln Tm A Ad) [address] [place] [address])(War rior Op Med Cln Tm A Ad) TELE CONSULT [id number] Notes Entered by: KANU ANGEL 07 Jun 2015 1008 ------- ------- ------- ------- -- Network results Neurolo gy 5 TENZIN HOPE 06/[address] [place] [address])(W arrior Op Med Cln Tm A Ad) [address] [place] [address])(Fam jesus Med Tm B Non-AD BCC) TELE CONSULT [id number] Notes Entered by: MANN COLON 22 Aug 2015 0755 ------- ------- ------- ------- -- Referra l for physica l therapy needed MANN COLON 08/[address] [place] [address])(F amily Med Tm B Non-AD BCC) [address] [place] [address])(War rior Op Med Cln Tm A Ad) TELE CONSULT [id number] Notes Entered by: Delgado PIERCE 26 Aug 2015 1313 ------- ------- ------- ------- -- SX - Multipl e LorenzoX / Gil ne / JOE ASH 08/26 Referred for Appointment [address] [place] [address])(W arrior Op Med Cln Tm A Ad) [address] [place] [address])(War rior Op Med Cln Tm A Ad) TELE CONSULT [id number] Notes Entered by: KANU ANGEL 28 Aug 2015 1302 ------- ------- ------- ------- -- Network Results - Neurolo gy 6 TENZIN HOPE 08/[address] [place] [address])(W arrior Op Med Cln Tm A Ad) [address] [place] [address])(Environment Friendly Landscape Designer ecology) OUTPATIENT [id number] Discuss ANI Boss 09/23 Released w/o Limitations [address] [place] [address])(G ynecolo gy) [address] [place] [address])(War rior Op Med Cln Tm A Ad) OUTPATIENT [id number] L and R shoulde r pain x 2 wks 741.401 2 TENZIN HOPE 09/25 Released w/o Limitations [address] [place] [address])(W arrior Op Med Cln Tm A Ad) [address] [place] [address])(War rior Op Med Cln Tm A Ad) TELE CONSULT [id number] Notes Entered by: JUAN ALBERTO GRIMM 02 Oct 2015 1405 ------- ------- ------- ------- -- Sx - Multipl e sx/Layla donnelly/7 [phone] JOE ASH 10/01 Referred for Appointment [address] [place] [address])(W arrior Op Med Cln Tm A Ad) [address] [place] [address])(Environment Friendly Landscape Designer ecology) TELE CONSULT [id number] Notes Entered by: DIMPLE MALIK 03 Oct 2015 0927 ------- ------- ------- ------- -- Pre-op call for Essure on 10 Oct 2015 FAMILIA THOMPSON 10/[address] [place] [address])(G ynecolo gy) [address] [place] [address])(War rior Op Med Cln Tm A Ad) OUTPATIENT [id number] cough, congest ion and ear pain TENZIN HOPE 10/02 Released w/o Limitations [address] [place] [address])(W arrior Op Med Cln Tm A Ad) [address] [place] [address])(Environment Friendly Landscape Designer ecology) OUTPATIENT [id number] essure procedu re - [phone] ANI CHOI 10/09 Released w/o Limitations [address] [place] [address])(G ynecolo gy) [address] [place] [address])(Environment Friendly Landscape Designer ecology) TELE CONSULT [id number] Notes Entered by: DIMPLE MALIK 11 Oct 2015 0859 ------- ------- ------- ------- -- Callba k for Essure on 10 Oct 2015 DIMPLE JOHNSON 10/10 Referred for Appointment [address] [place] [address])(G ynecolo gy) [address] [place] [address])(Environment Friendly Landscape Designer ecology) TELE CONSULT [id number] Notes Entered by: LEVON FLORES 15 Oct 2015 1032 ------- ------- ------- ------- -- Bleedin g after ESSURE procedu re on Oct 15. DIMPLE JOHNSON 10/14 Referred for Appointment [address] [place] [address])(G ynecolo gy) [address] [place] [address])(Med ication Refill Clinic) TELE CONSULT [id number] Notes Entered by: Delgado PIERCE 21 Oct 2015 1501 ------- ------- ------- ------- -- Med renewal / Champ[place] ne / ZULMA JAMISON 10/[address] [place] [address])(M edicasheryl on Refill Clinic) [address] [place] [address])(Med ication Refill Clinic) TELE CONSULT [id number] Notes Entered by: Vidal YA 17 Dec 2015 1144 ------- ------- ------- ------- -- Med bridge, Appt Jan 15 / Champag braxton / DENIZ FRANKLIN 12/[address] [place] [address])(Michel eddiogenes on Refill Clinic) [address] [place] [address])(Environment Friendly Landscape Designer ecology) OUTPATIENT [id number] [facility] s/p bella - GIANNA STRAUSS 01/06 Released w/o Limitations [address] [place] [address])(G ynecolo gy) [address] [place] [address])(War rior Op Med Cln Tm A Ad) OUTPATIENT [id number] Med Renewal s 741.401 2 TENZIN HOPE A 01/07 Released w/o Limitations [facility] [place] [facility])(W arrior Op Med Cln Tm A Ad) [facility] [place] [employer] ([facility])(Environment Friendly Landscape Designer ecology) OUTPATIENT [id number] possibl e yeast infecti on - [phone] AMAYA BAEZ 03/04 Released w/o Limitations [facility] [place] [employer] [facility])(G ynecolo gy) [facility] [place] [facility])(Environment Friendly Landscape Designer ecology) TELE CONSULT [id number] Notes Entered by: KYLE BAEZ 16 Mar 2016 1032 ------- ------- ------- ------- -- Test results LAMAR ALVARADO 03/16[facility] [place] [facility])(G ynecolo gy) [address] [place] [address] [place] [facility])(Sco tt [facility]) OUTPATIENT [id number] PATRICIA Serna pt 04/10 Released w/o Limitations [facility] [place] ([facility])(S [facility]) [address] [place] [address] [place] [facility])(Environment Friendly Landscape Designer ecology) OUTPATIENT [id number] repeat hsg - rt side - s/p gerardoure KARI VANEGAS 04/14 Released w/o Limitations [facility] [place] [facility] ([facility])(G ynecolo gy) [address] [place] [address] [place] [facility])(Environment Friendly Landscape Designer ecology) OUTPATIENT [id number] PARAGAR D INSERTI ON - [phone] KARI VANEGAS 04/21 Released w/o Limitations [facility] [place] [facility])(G ynecolo gy) [address] [place] [address] [employer] [facility])(Fam jesus Med Tm B Non-AD BCC) OUTPATIENT [id number] pressur e headach e - sore throat from drainag e - [phone] DEVIN GIBSON 06/08 Released w/o Limitations [facility] [employer] ([facility])(F amily Med Tm B Non-AD BCC) [address] [place] [address] [facility] [place] [facility]War rior Op Med Cln Tm A Ad) OUTPATIENT [id number] med renewal /referr MILLY Duong 07/14 Released w/o Limitations [address] [place] [address] [place] [facility])(W arrior Op Med Cln Tm A Ad) [address] [place] [address])(War rior Op Med Cln Tm A Ad) OUTPATIENT [id number] sore throat, fever, body aches x2 days / TENZIN HOPE 09/02 Released w/o Limitations [facility] Group [facility])(W arrior Op Med Cln Tm A Ad) [address] [place] [address] Group [facility])(War rior Op Med Cln Tm A Ad) TELE CONSULT [id number] Notes Entered by: GLEN COTO 14 Sep 2016 0946 ------- ------- ------- ------- -- Network Results Radiolo gy 7 DS TENZIN HOPE 09/[address] [place] [address] Group [facility])(W arrior Op Med Cln Tm A Ad) [address] [place] [address])(War rior Op Med Cln Tm A Ad) TELE CONSULT [id number] Notes Entered by: JEN BADILLO 14 Sep 2016 1211 ------- ------- ------- ------- -- Network Results -GASTRO ENTEROL OGY 08/28/16 FLG TENZIN HOPE 09/[address] [place] [address] Group [place] [facility]W arrior Op Med Cln Tm A Ad) [address] [place] [address] Group [facility])(War rior Op Med Cln Tm A Ad) OUTPATIENT [id number] Knot near R Collar bone [phone] TENZIN HOPE 10/23 Released w/o Limitations [address] [place] [address] [place] [facility])(W arrior Op Med Cln Tm A Ad) [address] [place] [address] [place] [facility])(War rior Op Med Cln Tm A Ad) OUTPATIENT [id number] dizzy, headach es, ear aches, [phone] MILLY BEGUM 12/14 Released w/o Limitations [address] [place] [address])(W arrior Op Med Cln Tm A Ad) [address] [place] [address])(War rior Op Med Cln Tm A Ad) TELE CONSULT [id number] Notes Entered by: TONY FOFANA 06 Jan 2017 1002 ------- ------- ------- ------- -- Network results Gastroe nterolo gy 12/31/16 MMM TENZIN HOPE 01/[address] [place] [address])(W arrior Op Med Cln Tm A Ad) [address] [place] [address])(Med ication Refill Clinic) TELE CONSULT [id number] Notes Entered by: CRISTI CAREY 12 Jan 2017 1300 ------- ------- ------- ------- -- Med renewal /Kathy schuler/[phone] 12/MILLY Everett 01/[address] [place] [address])(Michel bob on Refill Clinic) [address] [place] [address])(War rior Op Med Cln Tm A Ad) OUTPATIENT [id number] Dizzine ss, 741.401 2 BLESSINGCA PLACIDO CHRISTY 02/08 Released w/o Limitations [address] [place] [address])(W arrior Op Med Cln Tm A Ad) [address] [place] [address])(War rior Op Med Cln Tm A Ad) TELE CONSULT [id number] Notes Entered by: JUAN ALBERTO GRIMM 25 Feb 2017 1202 ------- ------- ------- ------- -- Sx - Dizzine ss, R ear pain/Ch sharifagnaster / DARIEN, RAVIN J 02/[address] [place] [address])(W arrior Op Med Cln Tm A Ad) [address] [place] [address])(Fam ejsus Med Tm B Non-AD BCC) TELE CONSULT [id number] Notes Entered by: CARLOS MANUEL CORTES 02 Mar 2017 1615 ------- ------- ------- ------- -- Network Results Emergen Room 7 PLACIDO MERAZ 03/[address] [place] [address])(F amily Med Tm B Non-AD BCC) [address] [place] [address])(Med ication Refill Clinic) TELE CONSULT [id number] Notes Entered by: HORTENCIA OLGUIN RET R 15 Apr 2017 1145 ------- ------- ------- ------- -- Rx Renewal /Kathy schuler/[phone] 12 [facility] WICHO RUCKER 04/[address] [place] [address])(Michel bob on Refill Clinic) [address] [place] [address])(War rior Op Med Cln Tm A Ad) OUTPATIENT [id number] ear problem s 2 months TENZIN HOPE 04/19 Released w/o Limitations [address] [place] [address])(W arrior Op Med Cln Tm A Ad) [address] [place] [address])(War rior Op Med Cln Tm A Ad) TELE CONSULT [id number] Notes Entered by: HORTENCIA OLGUIN RET R 29 Jun 2017 0726 ------- ------- ------- ------- -- Sx: Thea/Abelino heredia/ [facility] RAVIN LEDEZMA J 06/[address] [place] [address])(W arrior Op Med Cln Tm A Ad) [address] [place] [address])(War rior Op Med Cln Tm A Ad) OUTPATIENT [id number] sore throat, low grade temp 99-100, sinus congest ionkin TENZIN HOPE 06/29 Released w/o Limitations [address] [place] [address])(W arrior Op Med Cln Tm A Ad) [address] [place] [address])(War rior Op Med Cln Tm A Ad) TELE CONSULT [id number] Notes Entered by: ELISABET JOHNSON 02 Jul 2017 1226 ------- ------- ------- ------- -- Positiv e Strep Throat Culture TENZIN HOPE 07/[address] [place] [address])(W arrior Op Med Cln Tm A Ad) [address] [place] [address])(Environment Friendly Landscape Designer ecology) OUTPATIENT [id number] bloody dischar ge x 1 week - [phone] AMAYA BAEZ 07/20 Released w/o Limitations [address] [place] [address])(G ynecolo gy) [address] [place] [address])(Environment Friendly Landscape Designer ecology) TELE CONSULT [id number] Notes Entered by: KYLE BAEZ 10 Aug 2017 1317 ------- ------- ------- ------- -- Test results VEORNICA JOHNS 08/[address] [place] [address])(G ynecodenis gy) [address] [place] [address])(Fam jesus Med Tm B Non-AD BCC) OUTPATIENT [id number] [facility] F/U-SX Persist Ringing L ear/cou gh/sirisha estion [id number] KOBE SELF 09/08 Released w/o Limitations [address] [place] [address])(F amily Med Tm B Non-AD BCC) [address] [place] [address])(Med ication Refill Clinic) TELE CONSULT [id number] Notes Entered by: JUAN ALBERTO GRIMM 10 Sep 2017 0839 ------- ------- ------- ------- -- Med Renewal /Kathy [facility]/[phone] 12 RAVIN LEDEZMA 09/[address] [place] [address])(Michel bob on Refill Clinic) [address] [place] [address])(War rior Op Med Cln Tm A Ad) TELE CONSULT [id number] Notes Entered by: HORTENCIA OLGUIN RET 13 Sep 2017 1022 ------- ------- ------- ------- -- SX: Left Ear pain[facility] RAVIN LEDEZMA 09/[address] [place] [address])(W arrior Op Med Cln Tm A Ad) [address] [place] [address])(War rior Op Med Cln Tm A Ad) TELE CONSULT [id number] Notes Entered by: ALEJO BERNAL 23 Sep 2017 1159 ------- ------- ------- ------- -- Network Results Emergen cy Room 09/02/17 CANDI CAROLINA 09/[address] [place] [address])(W arrior Op Med Cln Tm A Ad) [address] [place] [address])(Environment Friendly Landscape Designer ecology) OUTPATIENT [id number] discuss btl/batsheva whitaker coils [phone] KARI VANEGAS 10/05 Released w/o Limitations [address] [place] [address])(G dung gy) [address] [place] [address])(Ob/ Environment Friendly Landscape Designer) TELE CONSULT [id number] YONG FLORES 10/[address] [place] [address])(O b/Environment Friendly Landscape Designer) [address] [place] [address])(War rior Op Med Cln Tm A Ad) TELE CONSULT [id number] Notes Entered by: Vidal YEUNG 12 Oct 2017 1047 ------- ------- ------- ------- -- Network results Gastroe nterolo gy 018 ELISA MIDDLETONER Delgado 10/[address] [place] [address])(George humphrey Op Med Cln Tm A Ad) [address] [place] [address])(Environment Friendly Landscape Designer ecology) TELE CONSULT [id number] Notes Entered by: Dilma ALVAREZ 12 Oct 2017 1334 ------- ------- ------- ------- -- Surgery reminde r 13 OCT 2017 NICCI ALVAREZ 10/[address] [place] [address])(Geoffrey ybraxtoncodenis gy) [address] [place] [address])(Environment Friendly Landscape Designer ecology) TELE CONSULT [id number] Notes Entered by: SUSAN CONTRERAS 15 Oct 2017 1356 ------- ------- ------- ------- -- Scanned carlotta gy report into KARI STAHL 10/[address] [place] [address])(G ynecodenis gy) [address] [place] [address])(Med ication Refill Clinic) TELE CONSULT [id number] Notes Entered by: SAILAJA DEVLIN 21 Oct 2017 1004 ------- ------- ------- ------- -- Med Renewal / Gil limon / - sgWICHO Decker 10/[address] [place] [address])(Michel bob on Refill Clinic) [address] [place] [address])(Andrew cagle Op Med Cln Tm A Ad) TELE CONSULT [id number] Notes Entered by: KARTHIK SANDOVAL 22 Oct 2017 1018 ------- ------- ------- ------- -- Sx: Cough, congest ion - Gil ne - - tsg* URI SARABIA 10/22 Other Not Elsewhere Classified [address] [place] [address] [place] [facility])(W arrior Op Med Cln Tm A Ad) [address] [place] [address] [place] [facility])(Environment Friendly Landscape Designer ecology) OUTPATIENT [id number] post op - [phone] KARI VANEGAS 10/26 Released w/o Limitations [address] [place] [address] [place] [facility] ([facility])(G ynecolo gy) [address] [place] [address] [place] [facility])(War rior Op Med Cln Tm A Ad) TELE CONSULT [id number] Notes Entered by: JOSE BURRIS 01 Nov 2017 1036 ------- ------- ------- ------- -- Med refill / WICHO Molina 11/[address] [place] [address] [place] [facility])(W arrior Op Med Cln Tm A Ad) [address] [place] [address] [place] [facility])(War rior Op Med Cln Tm A Ad) OUTPATIENT [id number] Feels tired/r un down/we ight gain/giraldo ir/skin very dry [id number] TENZIN HOPE 12/13 Released w/o Limitations [address] [place] [address] [place] [facility])(W arrior Op Med Cln Tm A Ad) [address] [place] [address] [place] [facility])(War rior Op Med Cln Tm A Ad) TELE CONSULT [id number] Notes Entered by: ELISABET JOHNSON 14 Dec 2017 1050 ------- ------- ------- ------- -- Lab results DARIEN, RAVIN J 12/[address] [place] [address] [place] [facility])(W arrior Op Med Cln Tm A Ad) [address] [place] [address] [place] [facility])(War rior Op Med Cln Tm A Ad) OUTPATIENT [id number] F/U for low Vitamin D - still feeling tired - decline d Virtual [id number] ANTONIO DIGGS 03/02 Released w/o Limitations [address] [place] [address] [place] [facility])(W arrior Op Med Cln Tm A Ad) [facility])(Environment Friendly Landscape Designer ecology) TELE CONSULT [id number] Notes Entered by: SLYJim SUSAN LOZA 05 Apr 2018 0733 ------- ------- ------- ------- -- Possibl e yeast infecti on and herpes outbrea NICCI Seo QIAN 04/05 Referred for Appointment [address] [place] [address])(G ynecodenis gy) [address] [place] [address])(War rior Op Med Cln Tm A Ad) TELE CONSULT [id number] Notes Entered by: LUCY PATEL 10 May 2018 1432 ------- ------- ------- ------- -- Med Renewal Request / [place] / - WICHO Wiley 05/10 Referred for Appointment [address] [place] [address])(W arrior Op Med Cln Tm A Ad) [address] [place] [address])(Environment Friendly Landscape Designer ecology) OUTPATIENT [id number] dISCUSS treatme nt options for herpes outbrea ks [id number] (pt request ) KARI VANEGAS 05/24 Released w/o Limitations [address] [place] [address])(G ynecolo gy) [address] [place] [address])(War rior Op Med Cln Tm A Ad) TELE CONSULT [id number] Notes Entered by: JUAN ALBERTO GRIMM 15 Aug 2018 1042 ------- ------- ------- ------- -- 2nd opinion Referra l Request /Yessy heredia/ GEOVANI JARVIS 08/15 Other Not Elsewhere Classified [address] [place] [address])(W arrior Op Med Cln Tm A Ad) [address] [place] [address])(Environment Friendly Landscape Designer ecology) OUTPATIENT [id number] 0 3 month f/u medicat ion - [phone] KARI VANEGAS 09/12 Released w/o Limitations [address] [place] [address])(G ynecolo gy) [address] [place] [address])(War rior Op Med Cln Tm A Ad) OUTPATIENT [id number] 1 Sinus Drainag e and Pressur e, 741.401 2 ANTONIO DIGGS 11/16 Released w/o Limitations [address] [place] [address])(W arrior Op Med Cln Tm A Ad) [address] [place] [address])(War rior Op Med Cln Tm A Ad) TELE CONSULT [id number] Notes Entered by: PRAKASH BRICENO 16 Nov 2018 1111 ------- ------- ------- ------- -- Pt needs written prescri ption for nathaly serrato dontrell told her they are out of it MAUDE MORA 11/16 Medication Refill Forwarded [address] [place] [address])(W arrior Op Med Cln Tm A Ad) Procedures Combined list of: 1) Procedures from Department of Veterans Affairs facilities going back up to thelast 18 months, not all VA non-surgical procedures are included; 2) All procedures from the Department of Defense facilities. Procedure Procedure Type Code Date Perfomer Comments Sour e TELE ASSESS & MGT SRV PROV QUAL [...] NUTRITION THERAPY; INITIAL ASSESSMENT AND INTERVENTION, INDIVIDUAL, [id number] WITH THE PATIENT, EACH 15 MINUTES 11/02 [...] 24 HR/SOON APT;5-10 MIN MED DIS 10/27 [facility] SUBSEQ CARE VISIT () [EXCLS:PATIENTS WHO ARE SEEN FOR A CONDITION UNREL TO / CARE (EG,AN UP RESPIR INFECT;PATIENTS SEEN FOR CONSULTATION ONLY,NOT FOR CONT CARE)] 10/26 [facility] SUBS CARE VISIT () [EXCLS:PATIENTS WHO ARE SEEN FOR A CONDITION UNREL TO / CARE (EG,AN UP RESPIR INFECT;PATIENTS SEEN FOR CONSULTATION ONLY,NOT FOR CONT CARE)] 10/19 [facility] PSYCHOTHERAPY, 60 MINUTES WITH PATIENT 10/17 [facility] SUBSEQ CARE VISIT () [EXCLS:PATIENTS WHO ARE SEEN FOR A CONDITION UNREL TO / CARE (EG,AN UP RESPIR INFECT;PATIENTS SEEN FOR CONSULTATION ONLY,NOT FOR CONT CARE)] 10/13 [facility] SUBS CARE VISIT () [EXCLS:PATIENTS WHO ARE SEEN FOR A CONDITION UNREL TO / CARE (EG,AN UP RESPIR INFECT;PATIENTS SEEN FOR CONSULTATION ONLY,NOT FOR CONT CARE)] 10/05 [facility] FAMILY PSYCHOTHERAPY (CONJOINT PSYCHOTHERAPY) (WITH PATIENT PRESENT), 50 MINUTES 10/04 [facility] PSYCHOTHERAPY, 60 MINUTES WITH PATIENT 09/28 [facility] SUBSEQ CARE VISIT () [EXCLS:PATIENTS WHO ARE SEEN FOR A CONDITION UNREL TO / CARE (EG,AN UP RESPIR INFECT;PATIENTS SEEN FOR CONSULTATION ONLY,NOT FOR CONT CARE)] 09/25 [facility] SUBS CARE VISIT () [EXCLS:PATIENTS WHO ARE SEEN FOR A CONDITION UNREL TO / CARE (EG,AN UP RESPIR INFECT;PATIENTS SEEN FOR CONSULTATION ONLY,NOT FOR CONT CARE)] 09/21 [facility] PSYCHOTHERAPY, 60 MINUTES WITH PATIENT 09/21 [facility] SUBSEQ CARE VISIT () [EXCLS:PATIENTS WHO ARE SEEN FOR A CONDITION UNREL TO / CARE (EG,AN UP RESPIR INFECT;PATIENTS SEEN FOR CONSULTATION ONLY,NOT FOR CONT CARE)] 09/15 [facility] PSYCHIATRIC DIAGNOSTIC EVALUATION 09/14 [facility] SUBSEQ CARE VISIT () [EXCLS:PATIENTS WHO ARE SEEN FOR A CONDITION UNREL TO / CARE (EG,AN UP RESPIR INFECT;PATIENTS SEEN FOR CONSULTATION ONLY,NOT FOR CONT CARE)] 09/08 [facility] SUBS CARE VISIT () [EXCLS:PATIENTS WHO ARE [...] FOR CONSULTATION ONLY,NOT FOR CONT CARE)] 07/06 [facility] ULTRASOUND, UTERUS, REAL TIME WITH IMAGE DOCUMENTATION, [...] OUTPATIENT FACILITY, APPROXIMATELY 20 TO 30 MINUTES [id number] WITH THE PATIENT 01/31 DoD INDIVIDUAL PSYCHOTHERAPY, INSIGHT ORIENTED, BEHAVIOR MODIFYING AND/OR SUPPORTIVE, IN AN OFFICE OR OUTPATIENT FACILITY, APPROXIMATELY 45 TO 50 MINUTES [id number] WITH THE PATIENT 01/10 DoD PSYCHIATRIC DIAGNOSTIC INTERVIEW EXAMINATION 01/06 [facility] URINE TEST, BY VISUAL COLOR COMPARISON METHODS 08/05 DoD INFECTIOUS AGENT ANTIGEN DETECTION BY IMMUNOASSAY WITH [...] DoD REMOVAL OF INTRAUTERINE DEVICE (IUD) 01/14 [facility] DETERMINATION OF REFRACTIVE STATE 12/31 DoD TELE ASSESS & MGT SRV PROV QUAL NONPHYS HLTH CARE PRO TO EST PAT,PARENT,GUARD NOT ORIG REL ASSESS & MGT SRV PROV W/IN PREV 7 DAYS NOR LEAD ASSESS & MGT SRV/PX W/IN NXT 24 HR/SOON APT;5-10 MIN MED DIS 12/19 DoD INFLUENZA VIRUS VACCINE, TRIVALENT, LIVE (LAIV3), FOR INTRANASAL USE 08/29 DoD INSERTION OF INTRAUTERINE DEVICE (IUD) 08/20 DoD TELE ASSESS & MGT SRV PROV QUAL NONPHYS HLTH CARE PRO TO EST PAT,PARENT,GUARD NOT ORIG REL ASSESS & MGT SRV PROV W/IN PREV 7 DAYS NOR LEAD ASSESS & MGT SRV/PX W/IN NXT 24 HR/SOON APT;5-10 MIN MED DIS 08/14 [facility] SCREENING PAPANICOLAOU SMEAR; OBTAINING, PREPARING AND CONVEYANCE OF CERVICAL OR VAGINAL SMEAR TO LABORATORY 08/05 [facility] SUBSEQ CARE VISIT () [EXCLS:PATIENTS WHO ARE SEEN FOR A CONDITION UNREL TO / CARE (EG,AN UP RESPIR INFECT;PATIENTS SEEN FOR CONSULTATION ONLY,NOT FOR CONT CARE)] 06/18 [facility] SUBSEQ CARE VISIT () [EXCLS:PATIENTS WHO ARE SEEN FOR A CONDITION UNREL TO / CARE (EG,AN UP RESPIR INFECT;PATIENTS SEEN FOR CONSULTATION ONLY,NOT FOR CONT CARE)] 06/11 [facility] SUBSEQ CARE VISIT () [EXCLS:PATIENTS WHO ARE SEEN FOR A CONDITION UNREL TO / CARE (EG,AN UP RESPIR INFECT;PATIENTS SEEN FOR CONSULTATION ONLY,NOT FOR CONT CARE)] 06/03 [facility] INFLUENZA VIRUS VACCINE, TRIVALENT (IIV3), SPLIT VIRUS, 0.5 ML DOSAGE, FOR INTRAMUSCULAR USE 05/16 [facility] SUBSEQ CARE VISIT () [EXCLS:PATIENTS WHO ARE SEEN FOR A CONDITION UNREL TO / CARE (EG,AN UP RESPIR INFECT;PATIENTS SEEN FOR CONSULTATION ONLY,NOT FOR CONT CARE)] 05/16 [facility] SUBSEQ CARE VISIT () [EXCLS:PATIENTS WHO ARE SEEN FOR A CONDITION UNREL TO / CARE (EG,AN UP RESPIR INFECT;PATIENTS SEEN FOR CONSULTATION ONLY,NOT FOR CONT CARE)] 04/16 [facility] SUBSEQ CARE VISIT () [EXCLS:PATIENTS WHO ARE SEEN FOR A CONDITION UNREL TO / CARE (EG,AN UP RESPIR INFECT;PATIENTS SEEN FOR CONSULTATION ONLY,NOT FOR CONT CARE)] 03/25 [facility] SUBSEQ CARE VISIT () [EXCLS:PATIENTS WHO ARE SEEN FOR A CONDITION UNREL TO / CARE (EG,AN UP RESPIR INFECT;PATIENTS SEEN FOR CONSULTATION ONLY,NOT FOR CONT CARE)] 02/20 [facility] SUBSEQ CARE VISIT () [EXCLS:PATIENTS WHO ARE SEEN FOR A CONDITION UNREL TO / CARE (EG,AN UP RESPIR INFECT;PATIENTS SEEN FOR CONSULTATION ONLY,NOT FOR CONT CARE)] 01/23 [facility] INDIVIDUAL PSYCHOTHERAPY, INSIGHT ORIENTED, BEHAVIOR MODIFYING AND/OR SUPPORTIVE, IN AN OFFICE OR OUTPATIENT FACILITY, APPROXIMATELY 20 TO 30 MINUTES [id number] WITH THE PATIENT 01/02 [facility] SUBSEQ CARE VISIT () [EXCLS:PATIENTS WHO ARE SEEN FOR A CONDITION UNREL TO / CARE (EG,AN UP RESPIR INFECT;PATIENTS SEEN FOR CONSULTATION ONLY,NOT FOR CONT CARE)] 01/02 [facility] URINE TEST, BY VISUAL COLOR COMPARISON METHODS 11/02 [facility] TOBACCO USE CESSATION INTERVENTION, COUNSELING (COPD, CAP, CAD, ASTHMA) (DM) (PV) 10/03 [facility] SCREENING PAPANICOLAOU SMEAR; OBTAINING, PREPARING AND CONVEYANCE OF CERVICAL OR VAGINAL SMEAR TO LABORATORY 09/18 [facility] HEPATITIS B VACCINE (HEPB), ADULT DOSAGE, 3 DOSE SCHEDULE, FOR INTRAMUSCULAR USE 07/05 [facility] HEPATITIS B VACCINE (HEPB), ADULT DOSAGE, 3 DOSE SCHEDULE, FOR INTRAMUSCULAR USE 04/04 [facility] Non-Physician Phone Call To Patient/Provider Brief (5-10min) Non-Physician Phone Call To Patient/Provider Brief (5-10min) [id number] 11/16 MAUDE MORA [facility] Non-Physician Phone Call To Patient/Provider Brief (5-10min) Non-Physician Phone Call To Patient/Provider Brief (5-10min) [id number] 08/15 GEOVANI JARVIS [facility] Disease management program, follow-up/christofer e ment 05/17 WICHO RUCKER [facility] Non-Physician Phone Call To Patient/Provider Brief (5-10min) Non-Physician Phone Call To Patient/Provider Brief (5-10min) [id number] 04/05 NICCI ALVAREZ [facility] Disease management program, follow-up/christofer e ment 11/01 TENZIN HOPE DoD Disease management program, follow-up/christofer e ment 10/22 CANDI ARNOLD [facility] Non-Physician Phone Call To Patient/Provider Brief (5-10min) Non-Physician Phone Call To Patient/Provider Brief (5-10min) [id number] 10/22 URI SARABIA [facility] Non-Physician Phone Call To Patient/Provider Brief (5-10min) Non-Physician Phone Call To Patient/Provider Brief (5-10min) [id number] 10/12 NICCI ALVAREZ [facility] Non-Physician Phone Call To Patient/Provider Brief (5-10min) Non-Physician Phone Call To Patient/Provider Brief (5-10min) [id number] 09/13 RAVIN LEDEZMA [facility] Non-Physician Phone Call To Patient/Provider Brief (5-10min) Non-Physician Phone Call To Patient/Provider Brief (5-10min) [id number] 09/10 RAVIN LEDEZMA [facility] Vaginal Wet [place] Vaginal [place] 72067 07/20 AMAYA BAEZ [facility] Non-Physician Phone Call To Patient/Provider Brief (5-10min) Non-Physician Phone Call To Patient/Provider Brief (5-10min) [id number] 06/29 RAVIN LEDEZMA [facility] Disease management program, follow-up/christofer e ment 04/16 PLACIDO MACHUCA [facility] Non-Physician Phone Call To Patient/Provider Brief (5-10min) Non-Physician Phone Call To Patient/Provider Brief (5-10min) [id number] 02/25 RAVIN LEDEZMA [facility] Psychiatric Evaluation Review of Records and Reports Psychiatric Evaluation Review of Records and Reports [id number] 09/22 ZACHARY AVERY [facility] Gynecologic Services Intrauterine Device (IUD) Insertion Gynecologic Services Intrauterine Device (IUD) Insertion [id number] 04/21 KARI VANEGAS [facility] Hysterosalpingograp hy With Catheter Contrast Injection Hysterosalpingogra phy With Catheter Contrast Injection 06687 04/14 KARI VANEGAS Procedure: A final timeout [...] was informed of these results. No complications. [facility] Screening papanicolaou smear; obtaining, preparing and conveyance of cervical or vaginal smear to laboratory 03/04 AMAYA BAEZ [facility] Vaginal Wet [place] Vaginal [place] [id number] 03/04 AMAYA BAEZ [facility] Hysterosalpingograp hy With Catheter Contrast Injection Hysterosalpingogra phy With Catheter Contrast Injection [id number] 01/06 GIANNA STRAUSS [facility] Psychoactive Medication Management Psychoactive Medication Management [id number] 11/28 ZACHARY AVERY [facility] Non-Physician Phone Call To Patient/Provider Brief (5-10min) Non-Physician Phone Call To Patient/Provider Brief (5-10min) [id number] 10/14 DIMPLE JOHNSON [facility] Non-Physician Phone Call To Patient/Provider Brief (5-10min) Non-Physician Phone Call To Patient/Provider Brief (5-10min) [id number] 10/10 DIMPLE JOHNSON [facility] Conscious Sedation By Dr Performing Service 5 Yrs Or Older Conscious Sedation By Dr Performing Service 5 Yrs Or Older [id number] 10/09 PRIYA CHOI [facility] Non-Physician Phone Call To Patient/Provider Brief (5-10min) Non-Physician Phone Call To Patient/Provider Brief (5-10min) [id number] 10/03 FAMILIA THOMPSON [facility] Non-Physician Phone Call To Patient/Provider Brief (5-10min) Non-Physician Phone Call To Patient/Provider Brief (5-10min) 51652 10/01 JOE ASH [facility] Non-Physician Phone Call To Patient/Provider Brief (5-10min) Non-Physician Phone Call To Patient/Provider Brief (5-10min) [id number] 08/26 JOE ASH [facility] Non-Physician Phone Call To Patient/Provider Brief (5-10min) Non-Physician Phone Call To Patient/Provider Brief (5-10min) 92203 08/22 MANN COLON [facility] Psych Ther Indiv Interact Appr 20-30 Min W/ Med Eval Manage 06/20 ZACHARY AVERY Psych Ther Indiv Interact Appr 45-50 Min W/ Med Eval Manage 05/17 ZACHARY AVERY [facility] Non-Physician Phone Call To Patient/Provider Brief (5-10min) Non-Physician Phone Call To Patient/Provider Brief (5-10min) [id number] 04/26 MANN COLON [facility] Psych Ther Indiv Interact Appr 45-50 Min W/ Med Eval Manage 04/16 ZACHARY AVERY [facility] Vaginal Wet [place] Vaginal [place] 54365 04/11 AMAYA BAEZ [facility] Non-Physician Phone Call To Patient/Provider Brief (5-10min) Non-Physician Phone Call To Patient/Provider Brief (5-10min) [id number] 04/10 ANANDA WILLAMS [facility] Psych Ther Indiv Interact Appr 45-50 Min W/ Med Eval Manage 02/18 ZACHARY AVERY [facility] Psych Ther Indiv Interact Appr 45-50 Min W/ Med Eval Manage 01/01 ZACHARY AVERY DoD Psych Ther Indiv Interact Appr 45-50 Min W/ Med Eval Manage 11/19 ZACHARY AVERY DoD Psych Ther Indiv Interact Appr 45-50 Min W/ Med Eval Manage 10/23 ZACHARY AVERY [facility] Non-Physician Phone Call To Patient/Provider Brief (5-10min) Non-Physician Phone Call To Patient/Provider Brief (5-10min) [id number] 09/21 MANN COLON Psych Ther Indiv Interact Appr 45-50 Min W/ Med Eval Manage 09/06 ZACHARY AVERY [facility] Psych Ther Indiv Interact Appr 45-50 Min W/ Med Eval Manage 07/24 ZACHARY AVERY [facility] OB Services Antepartum Care Only Subsequent Single Visit OB Services Antepartum Care Only Subsequent Single Visit 0502F 06/30 CLEMENTINA DAVILA [facility] Psychiatric Therapy Individual Approximately 45-50 Minutes 06/21 CATHY TOMAS Test Test 57075 06/18 LUISANA DEVLIN [facility] Intrauterine Device (IUD) Insertion Gynecologic Services Intrauterine Device (IUD) Insertion 38415 06/18 LUISANA DEVLIN [facility] Psychiatric Therapy Individual Approximately 45-50 Minutes 06/04 CATHY TOMAS Vaginal Wet [place] Vaginal [place] 01053 06/04 LUISANA DEVLIN [facility] Social Work Individual Outpatient Counseling 45-50 Minutes 05/17 CATHY TOMAS Psychiatric Therapy Individual Approximately 45-50 Minutes 04/25 CATHY TOMAS Gynecologic Services Diaphragm Fitting With Instructions Gynecologic Services Diaphragm Fitting With Instructions 31361 02/20 ALYSSA COLÓN [facility] Social Work Individual Outpatient Counseling 45-50 Minutes 01/30 CATHY TOMAS DoD OB Services Antepartum Care Only Subsequent Single Visit OB Services Antepartum Care Only Subsequent Single Visit 0502F 11/27 CLEMENTINA DAVILA DoD OB Services Antepartum Care Only Subsequent Single Visit OB Services Antepartum Care Only Subsequent Single Visit 0502F 11/14 GUERRERO DWYER B [facility] Non-Physician Phone Call To Patient/Provider Brief (5-10min) Non-Physician Phone Call To Patient/Provider Brief (5-10min) 10638 11/08 GAYE DECKER [facility] Medical Nutrition Therapy Initial A e ment, Intervention Medical Nutrition Therapy Initial Assessment, Intervention 81746 11/03 REYES LOPEZ [facility] Non-Physician Phone Call To Patient/Provider Brief (5-10min) Non-Physician Phone Call To Patient/Provider Brief (5-10min) 67115 10/30 GAYE DECKRE DoD OB Services Antepartum Care Only Subsequent Single Visit OB Services Antepartum Care Only Subsequent Single Visit 0502F 10/19 ZACK DWYERILY B DoD OB Services Antepartum Care Only Subsequent Single Visit OB Services Antepartum Care Only Subsequent Single Visit 0502F 10/13 ZACK DWYERILY B DoD OB Services Antepartum Care Only Subsequent Single Visit OB Services Antepartum Care Only Subsequent Single Visit 0502F 10/06 ERMZACK SANILY B DoD Psychiatric Therapy Family (Conjoint) 10/04 CATHY TOMAS DoD OB Services Antepartum Care Only Subsequent Single Visit OB Services Antepartum Care Only Subsequent Single Visit 0502F 09/25 ERMJASWINDER GUERRERO B DoD OB Services Antepartum Care Only Subsequent Single Visit OB Services Antepartum Care Only Subsequent Single Visit 0502F 09/21 THELMA HA DoD OB Services Antepartum Care Only Subsequent Single Visit OB Services Antepartum Care Only Subsequent Single Visit 0502F 09/15 ERMZACK SANILY B DoD Psychiatric Evaluation Psychiatric Evaluation 61882 09/15 CATHY TOMAS DoD OB Services Antepartum [...] Obstetric Limited Evaluation Ultrasound Obstetric Limited Evaluation 13908 05/25 ERMZACK SANILY B DoD OB Services Antepartum Care Only Subsequent Single Visit OB Services Antepartum Care Only Subsequent Single Visit 0502F 05/25 ERMZACK SANILY B DoD Ultrasound Trans[place] [address] 05/05 SLACLEMENTINA Drake Do[facility] OB Services Antepartum Care Only Subsequent Single Visit OB Services Antepartum Care Only Subsequent Single Visit 0502F 05/05 SLATLEATHACY K DoD Ultrasound Trans[place] [address] 05/02 LEATHA DAVILACY K DoD OB Services Antepartum Care Only First Visit, With Report OB Services Antepartum Care Only First Visit, With Report 0500F 05/02 SLATLEATHACY K [facility] Non-Physician Phone Call To Patient/Provider Brief (5-10min) Non-Physician Phone Call To Patient/Provider Brief (5-10min) 20073 04/28 EB DOMINGO [facility] Non-Physician Phone Call To Patient/Provider Brief (5-10min) Non-Physician Phone Call To Patient/Provider Brief (5-10min) 98955 03/09 JODIE RODRIGUEZ [facility] Non-Physician Phone Call To Patient/Provider Brief (5-10min) Non-Physician Phone Call To Patient/Provider Brief (5-10min) 34220 03/03 JODIE RODRIGUEZ [facility] Electrocardiogram Electrocardiogram 02236 02/21 RAHUL SCHMITT [facility] Psychiatric Evaluation Review of Records and Reports Psychiatric Evaluation Review of Records and Reports 62674 11/14 WICHO SOMMERS [facility] Non-Physician Phone Call To Pt/Provider Intermed (11-20 min) Non-Physician Phone Call To Pt/Provider Intermed (11-20 min) 53649 06/22 JE WHITFIELD [facility] Psychiatric Therapy Individual Approximately 20-30 Minutes Psychiatric Therapy Individual Approximately 20-30 Minutes 84262 01/31 WICHO SOMMERS [facility] Social Work Individual Outpatient Counseling 45-50 Minutes Social Work Individual Outpatient Counseling 45-50 Minutes 24398 01/10 SALOMÓN OLIVAS [facility] Psychiatric Evaluation Comprehensive Examination Psychiatric Evaluation Comprehensive Examination 84923 01/06 KEVIN THURMAN [facility] Test Test 35115 08/05 KELSIE INIGUEZ [facility] Rapid Antigen Identification Streptococcus Group A Beta Hemolytic Rapid Antigen Identification Streptococcus Group A Beta Hemolytic 13212 08/05 MONI BOSS [facility] Non-Physician Phone Call To Patient/Provider Brief (5-10min) Non-Physician Phone Call To Patient/Provider Brief (5-10min) 42914 03/31 GENA FRANKS [facility] Gynecologic Services Intrauterine Device (IUD) Removal Gynecologic Services Intrauterine Device (IUD) Removal 19180 01/22 BRIE CRUZ [facility] Determination Of Refractive State Determination Of Refractive State 41653 12/31 LUZ MUHAMMAD [facility] Ophthalmological New Patient Start Comprehensive Care Ophthalmological New Patient Start Comprehensive Care 73069 12/31 LUZ MUHAMMAD [facility] Non-Physician Phone Call To Patient/Provider Brief (5-10min) Non-Physician Phone Call To Patient/Provider Brief (5-10min) 33273 12/19 VASU CARPENTER [facility] Influenza Virus Vaccine Live Intranasal 08/29 LEXY BRICENO [facility] Immunization Administration One Vaccine Immunization Administration One Vaccine 77292 08/29 LEXY BRICENO [facility] Gynecologic Services Intrauterine Device (IUD) Insertion Gynecologic Services Intrauterine Device (IUD) Insertion [id number] 08/20 BRIE CRUZ [facility] Non-Physician Phone Call To Patient/Provider Brief (5-10min) Non-Physician Phone Call To Patient/Provider Brief (5-10min) 11506 08/14 ALDO DAY [facility] Obstetrical Services Care Visit Obstetrical Services Care Visit 0503F 08/06 BRIE CRUZ [facility] OB Services Antepartum Care Only Subsequent Single Visit OB Services Antepartum Care Only Subsequent Single Visit 0502F 06/18 JE ARIZA [facility] Vaginal FEDERICO Prep Vaginal FEDERICO Prep 98181 06/11 BRIE CRUZ [facility] Vaginal Wet [place]aginal [place] 02892 06/11 BRIE CRUZ [facility] OB Services Antepartum Care Only Subsequent Single Visit OB Services Antepartum Care Only Subsequent Single Visit 0502F 06/11 BRIE CRUZ [facility] OB Services Antepartum Care Only Subsequent Single Visit OB Services Antepartum Care Only Subsequent Single Visit 0502F 06/03 JE ARIZA [facility] Immunization Administration One Vaccine Immunization Administration One Vaccine 29149 05/16 AL TALBOT [facility] Influenza Split Virus Vaccine Age 3+ Years Intramuscular 05/16 AL TALBOT [facility] OB Services Antepartum Care Only Subsequent Single Visit OB Services Antepartum Care Only Subsequent Single Visit 0502F 04/16 CESARIO JEFFERY [facility] OB Services Antepartum Care Only Subsequent Single Visit OB Services Antepartum Care Only Subsequent Single Visit 0502F 03/25 MARGARETTE TABARES [facility] OB Services Antepartum Care Only Subsequent Single Visit OB Services Antepartum Care Only Subsequent Single Visit 0502F 02/20 ZACK TOWNSEND [facility] OB Services Antepartum Care Only Subsequent Single Visit OB Services Antepartum Care Only Subsequent Single Visit 0502F 01/23 JE LUNA [facility] Psychiatric Therapy Individual Approximately 20-30 Minutes Psychiatric Therapy Individual Approximately 20-30 Minutes 30711 01/02 YARITZA ORTIZ [facility] OB Services Antepartum Care Only Subsequent Single Visit OB Services Antepartum Care Only Subsequent Single Visit 0502F 01/02 JE LUNA [facility] Intervention And Counseling On Ce ation Of Tobacco Use Intervention And Counseling On Cessation Of Tobacco Use 4000F 10/03 MARGARETTE TABARES [facility] Screening papanicolaou smear; obtaining, preparing and conveyance of cervical or vaginal smear to laboratory 09/18 WANDA FELICIANO [facility] Hepatitis B Vaccine (Active); 20 Years and Above 07/05 GU, ADELINE MARTINA Do[facility] Immunization Administration One Vaccine Immunization Administration One Vaccine 98132 07/05 ADELINE GU [facility] Hepatitis B Vaccine (Active); 20 Years and Above 04/04 ILA GARCIA Do[facility] Immunization Administration One Vaccine Immunization Administration One Vaccine 75104 04/04 ILA GARCIA [facility] No data available for this section Ambulato ry Pharmacy Social History Combined list of available smoking, tobacco, and other social history from Department of Defense and Veterans Affairs facilities. Social History Type Response Date Comment Sourc e This section is an empty soc ial history section. [facility] Sexual Orientation Ambula tory Pharmacy Gender identity Ambulator y Pharmacy Sex Representation Female (finding) Unknown Organization Assessment and Plan Combined list of future [...] of Defense and Veterans Affairs (VA).VA Functional [place] Measurement (FIM) Scale: 1 = Total Assistance (Subject = 0% +), 2 = Maximal Assistance (Subject = 25% +), 3 = Moderate Assistance (Subject = 50% +), 4 = Minimal Assistance (Subject = 75% +), 5 = Supervision, 6 = Modified [place] (Device), 7 = Complete [place] (Timely, Safely). Assessment Date/Time Source Assessment Type Assessment Skill Assessment Score Assessment Details No data available for this section
--- OUTSIDE RECORDS SUMMARY | 2024-11-19 11:12 | XMS_ITS | Encounter Summary ---
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 Legal Sex Female 8:26 PM CDT Gender Identity Not on file Sexual Orientation Not on file documented as of this encounter Plan of Treatment Upcoming Encounters Date Type Department Care Team (Late st Contact Info) Description 03/08/2025 9:00 AM CDT Allied Health/Nurse Visit [facility] - [place] [address] [place] [address] Sandie Arriola MD [address] [place] [address] 03/15/2025 9:40 AM CDT Office Visit [facility] - [place] [address] [place] [address] Sandie Arriola MD [address] [place], [place] [address] documented as of this encounter Procedures Procedure [...] on filedocumented in this encounter Care Teams Instructional Coach Relationship Specialty Start Date End Date Noel Cerna MD [address] [place] [address] PCP - General FAMILY PRACTICE 06/04/20 03/05/24 Sandie Arriola MD [address] [place] [address] PCP - General FAMILY PRACTICE 03/06/24 Kesha Quinones MD [address] [place] [address] Referring Physician OBJAMESN 10/08/17 documented as of this encounter
[2024-11-19 11:16] LABS: Add Urine Microscopic? NO; Appearance Urine Clear (Clear); Bilirubin Urine Negative (Negative); Blood Urine Negative (Negative); Color Urine Yellow (Yellow); Glucose Urine UA Negative (Negative); Ketones Urine Negative (Negative); Leukocyte Esterase Ur Negative LEU/UL (Negative); Nitrate Urine Negative (Negative); Protein Urine Negative (Negative); Specific Grav Ur 1.023 (1.001-1.035); Urobilinogen Urine 0.2 mg/dL (<2.0); pH Urine 5.5 (5.0-9.0)
--- NOTE | 2024-11-19 11:49 | ED_ITS ---
HPI - General Adult General Chief complaint: Unspecified Stated complaint: R hip pain since this morning without injury Time Seen by Provider: 11/19/24 10:03 History of Present Illness HPI narrative: 49-year-old female present to the emergency department for evaluation for right lower quadrant pain that started approximately 8:00 p.m. last night. Patient denies any falls or injuries. Patient does have associated nausea and diarrhea but this could also be due to her IBS. Patient does have history of ovarian cyst. Related Data Home Medications ?Medication ?Instructions ?Recorded ?Confirmed ?Last Taken ?Type amitriptyline 25 mg tablet 25 mg PO HS 12/04/21 10/01/22 Unknown History albuterol sulfate 90 mcg/actuation inhalation 10/05/24 Unknown History aerosol inhaler Allergies Allergy/AdvReac Type Severity Reaction Status Date / Time escitalopram (From Lexapro) Allergy Mild Unknown Verified 10/05/24 19:41 metoclopramide (From Reglan) AdvReac Mild Unknown Verified 10/05/24 19:41 sertraline AdvReac Unknown INTENSIFIES Verified 10/05/24 19:41 ANXIETY Review of Systems 2 Review of Systems: All systems reviewed & are unremarkable except as noted in HPI and below PMFSH Past Medical History Medical History Obesity Dyspepsia Enterocolitis Belching Gas bloat syndrome Irritable bowel syndrome with diarrhea History of migraine Irritable bowel syndrome Surgical History Surgical History No pertinent past surgical history Social History Social History Smoking status: Current every day smoker Tobacco type: cigarettes and e-cigarettes/vaping Substance use type: does not use Exam 2 Narrative: APPEARANCE: Well appearing, no pain, no distress, well-nourished. HEAD: normocephalic, atraumatic. EYES: PERRLA/EOMI, conjunctivae clear. NOSE: Normal no drainage EARS:TMS clear with good light reflex. THROAT: Pharynx clear, no exudate. NECK: Supple. No adenopathy, no masses. RESPIRATORY: Airway patent, respirations nonlabored. Clear to auscultation bilaterally, no rales, rhonchi, wheezing. CARDIOVASCULAR: Regular rate and rhythm without murmurs rubs or gallops. ABDOMINAL: Right lower quadrant abdominal tenderness to palpation MUSCULOSKELETAL: Moves all extremities. Strength/ROM intact, No edema, No calf tenderness. NEURO: Alert. Cranial nerves II through XII intact. Grossly intact SKIN: Warm, dry. Normal Color Course Vital Signs Vital signs: Vital Signs Temperature 97.6 F 11/19/24 09:31 Pulse Rate 87 11/19/24 09:31 Respiratory Rate 16 11/19/24 09:31 Blood Pressure 138/76 11/19/24 09:31 Pulse Oximetry 100 11/19/24 09:31 Oxygen Delivery Room Air 11/19/24 09:31 Temperature 97.6 F 11/19/24 09:31 Pulse Rate 68 11/19/24 14:14 Respiratory Rate 14 11/19/24 14:14 Blood Pressure 119/72 11/19/24 14:14 Pulse Oximetry 100 11/19/24 14:14 Oxygen Delivery Room Air 11/19/24 09:31 Medical Decision Making [facility] Narrative Medical decision making narrative: 49-year-old female presented emergency department for evaluation for right lower quadrant pain. Patient is currently afebrile but does have a minor leukocytosis of 12.0 hemoglobin of 13.9. INR is 1.0. Patient has no significant abnormalities on her CMP and UA is negative. Ultrasound showed no evidence of ovarian torsion, CT scan was ordered due to the patient have persistent right lower quadrant pain this was negative for appendicitis colitis diverticulitis. Patient does appear to be improved with treatment. All questions concerns were addressed patient was comfortable the plan for discharge and close follow-up. Differential Diagnosis Differential Diagnosis: Ovarian cyst, ovarian torsion, appendicitis, colitis, diverticulitis, muscular strain Vital Signs Vital Signs: Vital Signs Temperature 97.6 F 11/19/24 09:31 Pulse Rate 87 11/19/24 09:31 Respiratory Rate 16 11/19/24 09:31 Blood Pressure 138/76 11/19/24 09:31 Pulse Oximetry 100 11/19/24 09:31 Oxygen Delivery Room Air 11/19/24 09:31 Temperature 97.6 F 11/19/24 09:31 Pulse Rate 68 11/19/24 14:14 Respiratory Rate 14 11/19/24 14:14 Blood Pressure 119/72 11/19/24 14:14 Pulse Oximetry 100 11/19/24 14:14 Oxygen Delivery Room Air 11/19/24 09:31 Lab Data Lab results reviewed: Yes I reviewed the patient's lab results. 11/19/24 12:06 11/19/24 12:06 Labs: Lab Results 11/19/24 11/19/24 Range/Units 11:08 12:06 WBC 12.0 H (4.5-10.0) K/mm3 RBC 4.70 (4.2-5.4) M/mm3 Hgb 13.9 (12.0-15.0) g/dL Hct 42.6 (37.0-47.0) % MCV 90.6 (80-100) fl MCH 29.6 (26-34) pg MCHC 32.6 (32-36) g/dl RDW 13.1 (11.5-14.5) % Plt Count 296 (150-375) k/mm3 MPV 9.0 (7.4-10.4) fl Immature Gran % (Auto) 0.2 (0-0.5) % Neut % (Auto) 71.9 (45.5-73.1) % Lymph % (Auto) 21.2 (18.3-44.2) % [place] % (Auto) 5.7 (2.6-8.5) % Eos % (Auto) 0.8 (0-4.4) % Baso % (Auto) 0.2 (0.2-1.2) % Lymph # (Auto) 2.55 (0.9-3.2) K/mm3 [place] # (Auto) 0.7 H (0.1-0.6) K/mm3 Eos # (Auto) 0.1 (0-0.3) K/mm3 Baso # (Auto) 0.0 (0.0-0.1) K/mm3 Abs Immat Gran (auto) 0.03 (0.00-0.031) K/mm3 Absolute Neuts (auto) 8.6 H (1.3-6.7) K/mm3 Absolute Nucleated RBC 0.000 (0.0-0.012) K/mm3 Nucleated RBC % 0.0 (0.0-0.2) % PT 13.1 (11.1-14.7) Seconds INR 1.0 APTT 23.8 (22.3-36.8) Seconds Sodium 139 (137-145) mmol/L Potassium 3.9 (3.4-5.0) mmol/L Chloride 105 (98-107) mmol/L Carbon Dioxide 26 (22-30) mmol/L Anion Gap 8 (4-12) mmol/L BUN 10 (7-17) mg/dL Creatinine 0.62 L (0.7-1.0) mg/dL Estim Creat Clear Calc 76 ml/min Estimated GFR > 60 (59 - ) Glucose 103 (65-110) mg/dL Calcium 8.8 (8.4-10.2) mg/dL Total Bilirubin 0.4 (0.2-1.3) mg/dL AST 21 (14-36) U/L ALT 26 (6-35) U/L Alkaline Phosphatase 99 (38-126) U/L Total Protein 7.0 (6.3-8.2) g/dL Albumin 4.2 (3.5-5.1) g/dL Urine Color Yellow (Yellow) Urine Appearance Clear (Clear) Urine pH 5.5 (5.0-9.0) Ur Specific [place] 1.023 (1.001-1.035) Urine Protein Negative (Negative) mg/dL Urine Glucose (UA) Negative (Negative) mg/dL Urine Ketones Negative (Negative) mg/dL Ur Blood (Man) Negative (Negative) Urine Nitrate Negative (Negative) Urine Bilirubin Negative (Negative) Urine Urobilinogen 0.2 (<2.0) mg/dL Leukocyte Esterase Rfl Negative (Negative) LISBETH/UL Imaging Data Radiologist's impression: Impressions Hip/Pelvis X-Ray 11/19/24 10:53 Impression: 1: Mild osteoarthritis of the hips. Pelvis Ultrasound 11/19/24 12:49 IMPRESSION: 1. Normal pelvic ultrasound. Abdomen/Pelvis CT 11/19/24 13:37 IMPRESSION: 1. No acute abdominal abnormality. Discharge Plan Discharge Clinical Impression: Abdominal pain, right lower quadrant Patient Disposition: Home Condition: Stable Instructions: Antibiotic Form, Abdominal Pain (ED) Additional Instructions: Tylenol and ibuprofen for pain control. Have close follow-up your primary care physician. If you have any worsening symptoms then please call or return to the emergency department Patient Language: Guyanese Prescriptions: No Action amitriptyline 25 mg tablet 25 mg PO HS albuterol sulfate 90 mcg/actuation HFA aerosol inhaler INHALATION Follow-up/Referrals: UNKNOWN,DOCTOR [Primary Care Provider] -
[2024-11-19] MEDS: LACTATED RINGERS 1,000 ML 999 ML IV CONT (12:00)
[2024-11-19] MEDS: ONDANSETRON INJ 4 MG/2 ML VIAL IV PUSH (12:01)
[2024-11-19] MEDS: HYDROmorphone HCL INJ (*CRX) 2 MG/ML VIAL 1 MG IV PUSH (12:01)
[2024-11-19 12:05] VITALS: BP 133/74; PULSE 71; RESP 15; O2SAT 94
[2024-11-19 12:06] VITALS: BP 133/74; O2SAT 98
[2024-11-19 12:11] LABS: Basophils Percent Auto 0.2 % (0.2-1.2); Eosinophils Absolute Auto 0.1 K/mm3 (0-0.3); Eosinophils Percent Auto 0.8 % (0-4.4); Hematocrit 42.6 % (37.0-47.0); Hemoglobin 13.9 g/dL (12.0-15.0); Immature Granulocyte Absolute 0.03 K/mm3 (0.00-0.031); Immature Granulocyte Percent A 0.2 % (0-0.5); Lymphocytes Absolute Auto 2.55 K/mm3 (0.9-3.2); Lymphocytes Percent Auto 21.2 % (18.3-44.2); Mean Corpuscular HGB Conc 32.6 g/dl (32-36); Mean Corpuscular Hemoglobin 29.6 pg (26-34); Mean Corpuscular Volume 90.6 fl (80-100); Monocytes Absolute Auto 0.7 K/mm3 (0.1-0.6); Monocytes Percent Auto 5.7 % (2.6-8.5); Neutrophils Absolute Auto 8.6 K/mm3 (1.3-6.7); Neutrophils Percent Auto 71.9 % (45.5-73.1); Platelet Count Result 296 k/mm3 (150-375); Red Cell Distribution Width 13.1 % (11.5-14.5)
[2024-11-19 12:16] VITALS: BP 115/66; O2SAT 100
[2024-11-19 12:21] LABS: Alanine Aminotransferase 26 U/L (6-35); Albumin Level 4.2 g/dL (3.5-5.1); Alkaline Phosphatase 99 U/L (38-126); Anion Gap 8 mmol/L (4-12); Aspartate Amino Transferase 21 U/L (14-36); Bilirubin,Total 0.4 mg/dL (0.2-1.3); Blood Urea Nitrogen 10 mg/dL (7-17); Calcium 8.8 mg/dL (8.4-10.2); Carbon Dioxide 26 mmol/L (22-30); Chloride 105 mmol/L (98-107); Estimated CRCL calculation 76 ml/min; Estimated Glomerular Filt Rate > 60; Glucose 103 mg/dL (65-110); Potassium 3.9 mmol/L (3.4-5.0); Sodium 139 mmol/L (137-145)
[2024-11-19 12:28] LABS: Prothrombin Time 13.1 Seconds (11.1-14.7)
[2024-11-19 12:29] LABS: Partial Thromboplastin Time 23.8 Seconds (22.3-36.8)
[2024-11-19 13:01] VITALS: BP 99/66; O2SAT 100
[2024-11-19 14:14] VITALS: BP 119/72; PULSE 68; RESP 14; O2SAT 100
== END 2024-11-19 14:13 | disposition home or self-care (01) ==
PROVIDERS: Emergency Provider Emergency Medicine
DX: R10.31 Right lower quadrant pain (principal); E66.9 Obesity, unspecified; Z68.24 Body mass index [BMI] 24.0-24.9, adult; K58.0 Irritable bowel syndrome with diarrhea; F17.210 Nicotine dependence, cigarettes, uncomplicated; F17.290 Nicotine dependence, other tobacco product, uncomplicated; M16.0 Bilateral primary osteoarthritis of hip; Z79.899 Other long term (current) drug therapy
CPT/HCPCS: 36415; 73502; 74177; 76856; 80053; 81003; 85025; 85610; 85730; 96361; 96374; 96375; 99284; J1171; J2405; J7120; Q9967

== ENCOUNTER 2024-12-07 01:24 | Day surgery (SDC) | payer OTHER, SELFPAY ==
[2024-12-05 14:02] VITALS: BMI 25.6
--- NOTE | 2024-12-05 14:03 | PC.NURSE ---
Report to the Outpatient Waiting Room, entrance under the green pavilion located off [facility], at time _1000_ on date _[id number]_. Planned Procedure Time: _1200_.? Time changes happen often and if your time is changed the preop area will call you the afternoon before. - You and your visitor will be asked to self-screen and do not enter if you have any COVID symptoms. Please call surgeon if you need to reschedule. - A mask is optional within the hospital at this time. Patients may have clear liquids (water, carbonated beverages, clear teas, apple juice) until 3 hours prior to surgery with a maximum of 20 ounces. - No food from midnight until time of surgery and no smoking, or chewing tobacco (or any form of nicotine). No chewing gum, candy or mints. Take only the following medications with a SIP of water on the morning of surgery: __If needed hydrocodone and or Albuterol___ DO NOT STOP ANY OF YOUR OTHER PRESCRIPTION MEDICATIONS PRIOR TO SURGERY EXCEPT THE FOLLOWING Hold all vitamins and supplements for 3 days per anesthesiologist. Medications to discontinue per physician Date to take last dose Please no make-up, nail yoruba, hairspray, perfume, deodorant, or body powder the day of surgery.? No jewelry (including any body piercings) or valuables the day of surgery, leave them at home.? Please take a shower or bath the night before, or the morning of, surgery with an antibacterial soap.? Wear comfortable, loose fitting clothing.? - Jewelry must be removed prior to entering the operating room.? Rings and piercings that are not removed may be cut off. - The hospital will not accept responsibility for valuables.? - Please leave all valuables, including medications, at home the day of surgery. If you are going home after surgery, a licensed snaker tractor driver must drive you home.? - NO public transportation without another adult if you receive anesthesia. - We recommend that an adult stay with you for 24 hours following discharge. - We also recommend that you do not drive, make important decision, drink alcoholic beverages, or take any drugs that were not prescribed by your health care provider for at least 24 hours after your discharge time. Follow any additional instructions given to you from your surgeon. Telephone instructions given to __Gail__and asked if any additional questions and then verbalized understanding. Patient advised to call surgeon office or pre surgery nurse liaison [phone] if any additional questions.
[2024-12-07] VITALS (16 sets, daily range): BP systolic 97–135; BP diastolic 53–92; PULSE 63–86; RESP 10–22; TEMP 36.6–36.9; O2SAT 93–100; BMI 26.5
--- OUTSIDE RECORDS SUMMARY | 2024-12-07 01:28 | XMS_ITS | Continuity of Care Document ---
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) OUTPATIENT [id number] pregnan cy test KELSIE INIGUEZ 08/05 Released w/o Limitations [address] [place] [address] [employer] ([facility] [place])(G ynecolo gy) [address] [place] [address] [place] [facility])(War rior Op Med Cln Tm A Ad) TELE CONSULT [id number] Patient is request ing a refill on med Amitrip tyline. SIDDHARTH CURTIS 08/[address] [place] [address] [place] [facility])(W arrior Op Med Cln Tm A Ad) [address] [place] [address] [place] [facility])(Fam jesus Med Tm B Non-AD BCC) OUTPATIENT [id number] wrist pain [phone] EFREN MAYA 09/17 Released w/o Limitations [address] [place] [address] [place] [facility])(F amily Med Tm B Non-AD BCC) [address] [place] [address] [place] [facility])(War rior Op Med Cln Tm A Ad) OUTPATIENT [id number] feeling nervous all the time [phone] EFREN MAYA 02/11 Released w/o Limitations [address] [place] [address] [place] [facility]W arrior Op Med Cln Tm A Ad) [address] [place] [address] [place] [facility])(War rior Op Med Cln Tm A Ad) OUTPATIENT [id number] abd pain [phone] EFREN MAYA 04/27 Released w/o Limitations [address] [place] [address] [place] [facility])(W arrior Op Med Cln Tm A Ad) [address] [place] [address] [place] [facility])(War rior Op Med Cln Tm A Ad) TELE CONSULT [id number] Lab Result Review results with patient EFREN MAYA 04/[address] [place] [address] [place] [facility]W arrior Op Med Cln Tm A Ad) [address] [place] [address] [place] [facility])(War rior Op Med Cln Tm A Ad) TELE CONSULT [id number] Notes Entered by: GENA MARTE 17 Dec 2011 1237 ------- ------- ------- ------- -- Tcon for possibl e sinus infecti on CHANCE Maya ph [phone] EVONNE Harrison 12/[address] [place] [address] [place] [facility])(W arrior Op Med Cln Tm A Ad) [address] [place] [address])(War rior Op Med Cln Tm A Ad) OUTPATIENT [id number] sinus infecti on [id number] EFREN MAYA 12/23 Released w/o Limitations [address] [place] [address])(W arrior Op Med Cln Tm A Ad) [address] [place] [address])(War rior Op Med Cln Tm A Ad) TELE CONSULT [id number] Notes Entered by: Duglas SILVESTRE 09 Mar 2012 1342 ------- ------- ------- ------- -- Med refill Nexium 40 mg daily Lance /byron [id number] ANDRAE SIMS 03/[address] [place] [address])(W arrior Op Med Cln Tm A Ad) [address] [place] [address])(War rior Op Med Cln Tm A Ad) OUTPATIENT [id number] cough congest ion [phone] LOIS IBARRA 06/09 Released w/o Limitations [address] [place] [address])(W arrior Op Med Cln Tm A Ad) [address] [place] [address])(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) TELE CONSULT [id number] Notes Entered by: Toby YA 10 Jun 2012 1448 ------- ------- ------- ------- -- Walk in HCG LARY NICHOLAS 06/[address] [place] [address])(Geoffrey razo gy) [address] [place] [address])(Fam jesus Med Tm B Non-AD BCC) TELE CONSULT [id number] Notes Entered by: SHERYL NUNO 22 Jun 2012 0925 ------- ------- ------- ------- -- Vaginal pain, JE Vincent 06/[address] [place] [address])(F amily Med Tm B Non-AD BCC) [address] [place] [address])(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) TELE CONSULT [id number] Notes Entered by: LEVON FLORES 22 Jun 2012 1117 ------- ------- ------- ------- -- F/u appt for ER visit TIRSOROCIO LARY L 06/[address] [place] [address])(G ynecodenis gy) [address] [place] [address])(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) TELE CONSULT [id number] Notes Entered by: KARTHIK SANDOVAL 06 Jul 2012 1352 ------- ------- ------- ------- -- Resched pia [place] appt - Josue f - [phone] MARY JO ELKINS 07/06 Referred for Appointment [address] [place] [address])(G yalka gy) [address] [place] [address])(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) OUTPATIENT [id number] Follow up ER visit, lower pelvic pain, UTI, dysuria and mild inconti ANI Evans 07/15 Released w/o Limitations [address] [place] [address])(G ynecodenis gy) [address] [place] [address])(Ob/ 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Ambassador) TELE CONSULT [id number] Notes Entered by: TESSA SORIA 12 Aug 2012 1007 ------- ------- ------- ------- -- Lab result VERONICA JOHNS 08/[address] [place] [address])(O b/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Ambassador) [address] [place] [address])(War rior Op Med Cln Tm A Ad) TELE CONSULT [id number] Notes Entered by: SHERYL NUNO 17 Aug 2012 1020 ------- ------- ------- ------- -- Vaginal itching /burnin ANDRAE Magaña 08/[address] [place] [address])(W arrior Op Med Cln Tm A Ad) [address] [place] [address])(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) TELE CONSULT [id number] Notes Entered by: TESSA SORIA 30 Aug 2012 1003 ------- ------- ------- ------- -- US result VERONICA JOHNS 08/[address] [place] [address])(G ynecolo gy) [address] [place] [address])([facility] Team 3) OUTPATIENT [id number] neck and shoulde r pain x 2 weeks; denies injury, LOIS IBARRA 10/11 Released w/o Limitations [address] [place] [address])([facility] Team 3) [address] [place] [address])([facility] Team 3) TELE CONSULT [id number] Notes Entered by: SHERYL NUNO 19 Oct 2012 1356 ------- ------- ------- ------- -- Flu symptom s ANDRAE Nguyen 10/[address] [place] [address])([facility] Team 3) [address] [place] [address])([facility] Team 3) TELE CONSULT [id number] Notes Entered by: SOPHIA LARA 08 Nov 2012 1206 ------- ------- ------- ------- -- Ling Devlin [id number] ANDRAE HEDRICK 11/[address] [place] [address])([facility] Team 3) [address] [place] [address])(War rior Op Med Cln Tm A Ad) TELE CONSULT [id number] Notes Entered by: OWEN NEGRETE 21 Nov 2012 0824 ------- ------- ------- ------- -- Josue ruelas/ANDRAE Mariscal M 11/21 [facility])(W arrior Op Med Cln Tm A Ad) [address] [place] [address])(War rior Op Med Cln Tm A Ad) TELE CONSULT [id number] Notes Entered by: KANU ANGEL 14 Dec 2012 1129 ------- ------- ------- ------- -- Network Results - Physica l Therapy - 3 LOIS IBARRA 12/14 [facility])(W arrior Op Med Cln Tm A Ad) [address] [place] [address])(Hio tt [facility] Team 3) TELE CONSULT [id number] Notes Entered by: SHAUN JOHNSTON 22 Dec 2012 1443 ------- ------- ------- ------- -- Med Refill- Josue ruelas/ ANDRAE SIMS 12/22 [facility] Medical [facility] [place] [facility])(S [facility] Team 3) [address] [place] [address])(War rior Op Med Cln Tm A Ad) TELE CONSULT [id number] Notes Entered by: KANU ANGEL 23 Jan 2013 1211 ------- ------- ------- ------- -- Network Results - Physica l Therapy - 3 MANN BUCIO 01/23 [facility] Medical [facility] [place] [facility]W arrior Op Med Cln Tm A Ad) [address] [place] [address])([facility] Team 3) TELE CONSULT [id number] Notes Entered by: Duglas SILVESTRE 25 Jan 2013 1510 ------- ------- ------- ------- -- Med refill Leonel MACARENA THOMAS I 01/[address] [place] [address] [place] [facility])(S cott [facility] Team 3) [facility] Medical [facility])(War rior Op Med Cln Tm A Ad) OUTPATIENT [id number] acid relux-m ed not working , ring in L ear [id number] RAHUL SCHMITT 02/21 Released w/o Limitations [address] [place] [address])(W arrior Op Med Cln Tm A Ad) [address] [place] [address])(War rior Op Med Cln Tm A Ad) TELE CONSULT [id number] Notes Entered by: RAHUL SCHMITT 22 Feb 2013 1254 ------- ------- ------- ------- -- F/u from labs RAHUL SCHMITT 02/[address] [place] [address])(W arrior Op Med Cln Tm A Ad) [address] [place] [address])(War rior Op Med Cln Tm A Ad) TELE CONSULT [id number] Notes Entered by: STARLA MARES 03 Mar 2013 1510 ------- ------- ------- ------- -- Ear pain/Giraldo bereniceraabebe / JODIE RODRIGUEZ 03/03 Referred for Appointment [address] [place] [address])(W arrior Op Med Cln Tm A Ad) [address] [place] [address])(War rior Op Med Cln Tm A Ad) OUTPATIENT [id number] ear pain JYOTHI BATES 03/06 Released w/o Limitations [address] [place] [address])(W arrior Op Med Cln Tm A Ad) [address] [place] [address])(War rior Op Med Cln Tm A Ad) TELE CONSULT [id number] Notes Entered by: SOPHIA LARA 09 Mar 2013 1506 ------- ------- ------- ------- -- Ling Colon [facility] [id number] [phone] JODIE RODRIGUEZ 03/09 Referred for Appointment [address] [place] [address])(W arrior Op Med Cln Tm A Ad) [address] [place] [address])(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) TELE CONSULT [id number] Notes Entered by: SUSAN CONTRERAS 27 Apr 2013 0942 ------- ------- ------- ------- -- Walk in for pregnan cy test YONG FLORES 04/[address] [place] [address])(G ybraxtoncolo gy) [address] [place] [address])(War rior Op Med Cln Tm A Ad) TELE CONSULT [id number] Notes Entered by: Duglas SILVESTRE 28 Apr 2013 1157 ------- ------- ------- ------- -- Sinus infecti on [facility] es EB DOMINGO 04/[address] [place] [address])(W arrior Op Med Cln Tm A Ad) [address] [place] [address])(War rior Op Med Cln Tm A Ad) TELE CONSULT [id number] Notes Entered by: STARLA MARES 01 May 2013 08 ------- ------- ------- ------- -- Appt request /beverley lomas/618 [phone] EB DOMINGO 05/[address] [place] [address])(W arrior Op Med Cln Tm A Ad) [address] [place] [address])(Ob/ 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Ambassador) OUTPATIENT [id number] New OB with IBS EDC approx Oct 14. CLEMENTINA DAVILA 05/01 Released w/o Limitations [address] [place] [address])(O b/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Ambassador) [address] [place] [address])(Ob/ 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) OUTPATIENT [id number] Notes Entered by: JENI CHEN 05 May 2013 1132 ------- ------- ------- ------- -- NIC RAHMAN 5May14/ repeat u/s CLEMENTINA DAVILA 05/05 Released w/o Limitations [facility] Medical [facility] ([facility])(O b/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Ambassador) [address] [place] [address])(Ob/ 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Ambassador) TELE CONSULT [id number] Notes Entered by: MARY JO ELKINS 10 May 2013 1250 ------- ------- ------- ------- -- Constip atCLEMENTINA Lees 05/[address] [place] [address])(O b/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Ambassador) [facility] Medical [facility])(Ob/ 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Ambassador) OUTPATIENT [id number] NIC RAHMAN [id number] GUERRERO DWYER 05/25 Released w/o Limitations [address] [place] [address] ([facility])(O b/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Ambassador) [facility] Medical [facility])(Ob/ 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Ambassador) TELE CONSULT [id number] Notes Entered by: MARY JO ELKINS 03 Jul 2013 1451 ------- ------- ------- ------- -- Medicat MARY JO Guerrero 07/03 [facility] Medical [facility])(O b/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Ambassador) [facility] Medical [facility])(Ob/ 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Ambassador) TELE CONSULT [id number] Notes Entered by: MARY JO ELKINS 05 Jul 2013 1309 ------- ------- ------- ------- -- Cold Symptom s MARY JO ELKINS 07/05 [facility]O b/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Ambassador) [facility] Medical [facility])(Ob/ 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Ambassador) OUTPATIENT [id number] NIC RAHMAN December 13 VIOLET WALKER 07/06 Released w/o Limitations [facility] Medical [facility] [place] B ([facility])(O b/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Ambassador) [facility])(Ob/ 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Ambassador) TELE CONSULT [id number] Notes Entered by: MARY JO ELKINS 06 Jul 2013 1426 ------- ------- ------- ------- -- [facility] MARY JO Corley 07/[address] [place] [address])(O b/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Ambassador) [address] [place] [address])(Ob/ 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Ambassador) TELE CONSULT [id number] Notes Entered by: MARY JO ELKINS 17 Jul 2013 1109 ------- ------- ------- ------- -- Anxiety MARY JO ELKINS 07/[address] [place] [address])(O b/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Ambassador) [address] [place] [address])(Ob/ 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Ambassador) TELE CONSULT [id number] Notes Entered by: LASHELL PARIS 18 Jul 2013 0758 ------- ------- ------- ------- -- [facility] GUERRERO DWYER 07/[address] [place] [address])(O b/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Ambassador) [address] [place] [address])(Ob/ 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) OUTPATIENT [id number] evaluat ion for anti-an xiety medicat ion d/t acute panic attacks GUERRERO DWYER 07/18 Released w/o Limitations [address] [place] [address])(O b/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Ambassador) [address] [place] [address])(Ob/ 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) TELE CONSULT [id number] Notes Entered by: MARY JO ELKINS 11 Aug 2013 1606 ------- ------- ------- ------- -- Medicat ion Refill GUERRERO DWYER 08/[address] [place] [address])(O b/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Ambassador) [address] [place] [address])(Ob/ 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Ambassador) TELE CONSULT [id number] Notes Entered by: LASHELL PARIS 16 Aug 2013 1040 ------- ------- ------- ------- -- Network Results -OBSTET RICS 08/14/13 ANI CHOI 08/[address] [place] [address])(O b/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Ambassador) [address] [place] [address])(Ob/ 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Ambassador) OUTPATIENT [id number] nic - edc december 13 GUERRERO DWYER 08/17 Released w/o Limitations [address] [place] [address] [place] [facility])(O b/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Ambassador) [address] [place] [address])(Ob/ 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Ambassador) TELE CONSULT [id number] Notes Entered by: ST KATERYNA DAVILA 27 Aug 2013 1307 ------- ------- ------- ------- -- anxiety CLEMENTINA DAVILA 08/[address] [place] [address])(O b/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Ambassador) [address] [place] [address])(Ob/ 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) OUTPATIENT [id number] follow up appt/an xiety attacks /treatm ent plan GUERRERO DWYER 08/28 Released w/o Limitations [address] [place] [address])(O b/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Ambassador) [address] [place] [address] [place] [facility])(Ob/ 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Ambassador) TELE CONSULT [id number] Notes Entered by: Aster DWYER 29 Aug 2013 0908 ------- ------- ------- ------- -- Anxiety GUERRERO DWYER 08/[address] [place] [address])(O b/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Ambassador) [address] [place] [address])(Ob/ 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Ambassador) TELE CONSULT [id number] Notes Entered by: Duglas DAVIES 05 Sep 2013 1131 ------- ------- ------- ------- -- ANTONIO Puente 09/[address] [place] [address])(O b/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Ambassador) [address] [place] [address])(Ob/ 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) OUTPATIENT [id number] f/u hospita lizatio n/anxie lalita STEPH ANI Jim Natarajan 09/08 Released w/o Limitations [address] [place] [address])(O b/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Ambassador) [address] [place] [address])(Ob/ 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[employer]) TELE CONSULT [id number] Notes Entered by: ME JARED CANO 12 Sep 2013 1146 ------- ------- ------- ------- -- Insomni a 24 6/7 week Ob-per our convers ation GUERRERO DWYER 09/[address] [place] [address])(O b/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Ambassador) [address] [place] [address])(Sco [facility] Res Tm Green) TELE CONSULT [id number] Notes Entered by: Jim ENRIQUEZ 12 Sep 2013 1747 ------- ------- ------- ------- -- [facility], THELMA Skelton 09/[address] [place] [address])(S [facility] Res Tm Green) [address] [place] [address])(Ob/ 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Ambassador) TELE CONSULT [id number] Notes Entered by: MARY JO ELKINS 13 Sep 2013 1540 ------- ------- ------- ------- -- MACARENA Rao I 09/[address] [place] [address])(O b/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Ambassador) [address] [place] [address])(Ob/ 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Ambassador) OUTPATIENT [id number] NEW MEDICAT ION FOLLOW UP/EDC DECEMBER 13 GUERRERO DWYER 09/15 Released w/o Limitations [address] [place] [address])(O b/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Ambassador) [address] [place] [address])(Ob/ 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Ambassador) TELE CONSULT [id number] Notes Entered by: MARY JO ELKINS 19 Sep 2013 1505 ------- ------- ------- ------- -- Medicat ion Increas e GUERRERO DWYER 09/[address] [place], [place] [address]B ([facility])(O b/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Ambassador) [address] [place] [address] [place] [employer] ([facility])(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) TELE CONSULT [id number] Notes Entered by: LASHELL PARIS 20 Sep 2013 0816 ------- ------- ------- ------- -- Network Results -OBSTET RICS 09/12/13 ANI CHOI 09/[address] [place] [address] [employer] ([facility])(G ynecolo gy) [address] [place] [address] [employer] ([facility])(Ob/ 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Ambassador) OUTPATIENT [id number] nic edc december 13 THELMA HA 09/21 Released with Work/Duty Limitations [address] [place] [address] [employer] ([facility])(O b/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Ambassador) [address] [place], [place] [address]B ([facility])(Ob/ 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Ambassador) OUTPATIENT [id number] HROB EDCDecember 13 GUERRERO DWYER 09/25 Released w/o Limitations [address] [place] [address] [employer] ([facility])(O b/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Ambassador) [address] [place] [address] [employer] ([facility])(Ob/ 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Ambassador) TELE CONSULT [id number] Notes Entered by: YAZAN MILLS 26 Sep 2013 0920 ------- ------- ------- ------- -- HROB-casie bradshaw/ CLEMENTINA Perez 09/[address] [place] [address] [place] [employer] ([facility])(O b/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Ambassador) [address] [place] [address] [employer] ([facility])(Ob/ 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Ambassador) TELE CONSULT [id number] Notes Entered by: MARY JO ELKINS 02 Oct 2013 1052 ------- ------- ------- ------- -- [facility] MARY JO Corley 10/[address] [place] [address] [employer] ([facility])(O b/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Ambassador) [address] [place] [address] [employer] ([facility])(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) TELE CONSULT [id number] Notes Entered by: Aster DWYER 03 Oct 2013 0803 ------- ------- ------- ------- -- Abnorma l glucose screen TARIQJASWINDERGUERRERO Reynaldo 10/[address] [place] [address] [employer] ([facility])(G ynecolo gy) [address] [place] [address] [employer] ([facility])(Ob/ 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Ambassador) OUTPATIENT [id number] HROB/ EDC December 13 YULIYAZACKGUERRERO B 10/05 Released w/o Limitations [facility] [employer] ([facility])(O b/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Ambassador) [address] [place] [address] [employer] [place] [employer] ([facility])(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) TELE CONSULT [id number] Notes Entered by: Aster DWYER 06 Oct 2013 1542 ------- ------- ------- ------- -- Elevate d 3 hr GTT MACARENA THOMAS I 10/[address] [place] [address] [employer] ([facility])( kamalasavannah gy) [address] [place] [address] [employer] ([facility])(Ob/ 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Ambassador) OUTPATIENT [id number] HROB/ EDC [id number] TARIQGUERRERO SAN Reynaldo 10/13 Released w/o Limitations [address] [place] [address] [employer] ([facility])(O b/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Ambassador) [address] [place] [address] [employer] ([facility])(Ob/ 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Ambassador) TELE CONSULT [id number] Notes Entered by: LASHELL PARIS 18 Oct 2013 0905 ------- ------- ------- ------- -- Network Results -OBSTET RICS 10/05/13 CLEMENTINA DAVILA 10/18 [facility] [employer] ([facility])(O b/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Ambassador) [facility] Medical [facility] [employer] ([facility])(Ob/ 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Ambassador) OUTPATIENT [id number] HROB/ EDC December 13 YULIYAZACKGUERRERO B 10/19 Released w/o Limitations [address] [place] [address] [employer] ([facility])(O b/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Ambassador) [facility] Medical [facility] [employer] ([facility])(Ob/ 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Ambassador) TELE CONSULT [id number] Notes Entered by: LASHELL PARIS 20 Oct 2013 1131 ------- ------- ------- ------- -- Network Results -OBSTET RICS 10/06/13 GUERRERO DWYER 10/20 [facility] [place] [employer] ([facility])(O b/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Ambassador) [address] [place] [address] [employer] ([facility])([facility]) TELE CONSULT [id number] Notes Entered by: CATHY TOMAS 25 Oct 2013 1058 ------- ------- ------- ------- -- Message from OB TEAM CATHY TOMAS 10/[address] [place] [address] Group [place] [employer] ([facility])(O [facility]) [facility] [employer] ([facility])(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) TELE CONSULT [id number] Notes Entered by: Aster DWYER 26 Oct 2013 0954 ------- ------- ------- ------- -- Pt phoneca GUERRERO DWYER 10/[address] [place] [address] Group [place] [employer] ([facility])(G ynecolo gy) [facility] Medical [facility] [place] [employer] [facility])(Ob/ 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Ambassador) OUTPATIENT [id number] HROB EDC [id number] CLEMENTINA DAVILA 10/26 Released w/o Limitations [facility] [employer] ([facility])(O b/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Ambassador) [address] [place] [address] [place] [employer] ([facility])(Ob/ 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Ambassador) TELE CONSULT [id number] Notes Entered by: RADHA LANZA 27 Oct 2013 1511 ------- ------- ------- ------- -- Medicat ion GAYE Nieto 10/27 [facility] [employer] ([facility])(O b/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Ambassador) [address] [place] [address] [employer] ([facility])(Ob/ 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Ambassador) TELE CONSULT [id number] Notes Entered by: RADHA LANZA 30 Oct 2013 0915 ------- ------- ------- ------- -- Medicat ion reactio GAYE Melissa 10/30 [facility] [employer] [facility])(O b/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Ambassador) [facility] Medical [facility] [employer] ([facility])([facility]) OUTPATIENT [id number] [facility] REYES CHOWDHURY 11/03 Released w/o Limitations [address] [place] [address] [place] [employer] ([facility])(N utritio nal Medicin e) [facility] Medical [facility] [employer] ([facility])(Ob/ 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[employer]) TELE CONSULT [id number] Notes Entered by: RADHA LANZA 08 Nov 2013 0803 ------- ------- ------- ------- -- Refill prescri ption GAYE DECKER 11/[address] [place] [address] Group [place] [employer] [facility])(O b/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Ambassador) [address] [place] [address] [place] [employer] [facility])(War rior Op Med Cln Tm A Ad) OUTPATIENT [id number] Cough/C ongesti on CHETNA MESA 11/08 Released w/o Limitations [address] [place] [address] [place] [employer] ([facility])(W arrior Op Med Cln Tm A Ad) [facility] Medical [facility] [employer] [facility])(Ob/ 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[employer]) OUTPATIENT [id number] HROB EDC [id number] GUERRERO DWYER 11/13 Released w/o Limitations [address] [place] [address] [place] [employer] ([facility])(O b/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Ambassador) [facility] Medical [facility] [employer] [facility])(Ob/ 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[employer]) OUTPATIENT [id number] HROB/ED C December 13 CLEMENTINA DAVILA 11/27 Released w/o Limitations [address] [place] [address] [employer] ([facility])(O b/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Ambassador) [facility] Medical [facility] [employer] ([facility])(Ob/ 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[employer]) TELE CONSULT [id number] Notes Entered by: JANINA MUHAMMAD 04 Dec 2013 0933 ------- ------- ------- ------- -- Nausea and dry heaving MACARENA THOMAS I 12/[address] [place] [address] [employer] ([facility])(O b/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Ambassador) [facility] Medical [facility] [employer] ([facility])(Ob/ 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Ambassador) TELE CONSULT [id number] Notes Entered by: LASHELL PARIS 11 Dec 2013 1121 ------- ------- ------- ------- -- Network Results -OBSTET RICS 12/04/13 TARIQGUERRERO SAN Reynaldo 12/11 [employer] ([facility])(O b/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Ambassador) [employer] ([facility])(Ob/ 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Ambassador) OUTPATIENT [id number] Post check up/del December 13 CLEMENTINA DAVILA 12/21 Released w/o Limitations [employer] ([facility])(O b/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Ambassador) [employer] ([facility])(Ob/ 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Ambassador) OUTPATIENT [id number] 6WPP/ Del 05 Dec 2013 ANI CHOI 01/23 Released w/o Limitations [employer] ([facility])(O b/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Ambassador) [employer] ([facility])(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) OUTPATIENT [id number] [facility] ALYSSA Michel 02/20 Released w/o Limitations [employer] ([facility])(Geoffrey razo gy) [facility] [employer] ([facility])(War rior Op Med Cln Tm A Ad) TELE CONSULT [id number] Notes Entered by: Abelino SILVESTRE 01 May 2014 1304 ------- ------- ------- ------- -- SOFIA RUVALCABA/Gayle ceballos/ [phone] EVONNE BRAR 05/01 [employer] ([facility])(W arrior Op Med Cln Tm A Ad) [employer] ([facility])(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) OUTPATIENT [id number] LUISANA ALEXANDER 06/04 Released w/o Limitations [employer] ([facility])(Geoffrey raoz gy) [employer] ([facility])(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) OUTPATIENT [id number] Bekah bojorquez Inserti on [phone] LUISANA DEVLIN 06/18 Released w/o Limitations [employer] ([facility])(G ynecolo gy) Medical [facility])(War rior Op Med Cln Tm A Ad) OUTPATIENT [id number] right wrist pain - [phone] CHETNA MESA 07/09 Released w/o Limitations [facility])(W arrior Op Med Cln Tm A Ad) [facility])(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) OUTPATIENT [id number] [facility] placeme nt check [phone] LUISANA DEVLIN 09/07 Released w/o Limitations [facility] Group [facility])(G ynecolo gy) [facility] Group [facility])(War rior Op Med Cln Tm A Ad) TELE CONSULT [id number] Notes Entered by: ROZ GASTELUM 21 Sep 2014 1006 ------- ------- ------- ------- -- SX - multipl e sx/Elsn [facility]/ * MANN COLON 09/21[facility])(W arrior Op Med Cln Tm A Ad) [facility])(War rior Op Med Cln Tm A Ad) OUTPATIENT [id number] Ovarian Cyst, ER Visit LAMAR Donnelly 09/24 Released w/o Limitations [facility])(W arrior Op Med Cln Tm A Ad) [facility] Medical [facility])(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) OUTPATIENT [id number] Possibl e Ovarion Cyst GUERRERO DWYER 09/24 Released w/o Limitations [facility] Group [facility])(G ynecolo gy) [address] [place] [address])(Ob/ 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) TELE CONSULT [id number] Notes Entered by: Aster DWYER 04 Oct 2014 1623 ------- ------- ------- ------- -- U/S results VERONICA JOHNS 10/[address] [place] [address])(O b/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Ambassador) [address] [place] [address])(War rior Op Med Cln Tm A Ad) OUTPATIENT [id number] pain in both feet -L is worse x 1wk [phone] TENZIN HOPE 12/11 Released w/o Limitations [address] [place] [address] [place] [facility])(W arrior Op Med Cln Tm A Ad) [address] [place] [address])(War rior Op Med Cln Tm A Ad) TELE CONSULT [id number] Notes Entered by: KANU ANGEL 29 Jan 2015 1253 ------- ------- ------- ------- -- Network results Neurolo gy 5 TENZIN HOPE 01/[address] [place] [address])(W arrior Op Med Cln Tm A Ad) [address] [place] [address])(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) OUTPATIENT [id number] [facility] [phone] ALYSSA COLÓN 02/05 Released w/o Limitations [address] [place] [address])(Geoffrey razo gy) [address] [place] [address])(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) TELE CONSULT [id number] Notes Entered by: ANDREWS COLÓN 12 Feb 2015 1635 ------- ------- ------- ------- -- results LAMAR ALVARADO 02/[address] [place] [address])(G dung gy) [address] [place] [address])(War rior Op Med Cln Tm A Ad) TELE CONSULT [id number] Notes Entered by: KANU ANGEL 01 Mar 2015 0938 ------- ------- ------- ------- -- Network results Neurolo gy 5 TENZIN HOPE 03/[address] [place] [address])(W arrior Op Med Cln Tm A Ad) [address] [place] [address])(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) TELE CONSULT [id number] Notes Entered by: JUAN ALBERTO GRIMM 10 Apr 2015 1049 ------- ------- ------- ------- -- Sx - Multipl e sx/Layla donnelly/Jaymie [phone]. [phone] ANANDA WILLAMS 04/[address] [place] [address])(G ynecolo gy) [address] [place] [address])(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) OUTPATIENT [id number] pelvic pain, vaginal bleedin g x 2weeks AMAYA BAEZ 04/11 Released w/o Limitations [address] [place] [address])(G ynecolo gy) [address] [place] [address])(War rior Op Med Cln Tm A Ad) TELE CONSULT [id number] Notes Entered by: SAILAJA DEVLIN 15 Apr 2015 0818 ------- ------- ------- ------- -- Lab Results / Gil limon / KEL THOMPSON 04/[address] [place] [address])(W arrior Op Med Cln Tm A Ad) [address] [place] [address])(War rior Op Med Cln Tm A Ad) TELE CONSULT [id number] Notes Entered by: ALESIA BARRAGAN 26 Apr 2015 1103 ------- ------- ------- ------- -- ER Follow- up/ Gil limon/ [phone] 2 MANN COLON 04/[address] [place] [address])(W arrior Op Med Cln Tm A Ad) [address] [place] [address])(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) OUTPATIENT [id number] discuss tubalig ation [phone] GUERRERO DWYER 04/30 Released w/o Limitations [address] [place] [address])(G ynecolo gy) [address] [place] [address])(War rior Op Med Cln Tm A Ad) TELE CONSULT [id number] Notes Entered by: JEN BADILLO 23 May 2015 1046 ------- ------- ------- ------- -- Network Results -GASTRO ENTEROL OGY 5 TENZIN HOPE 05/[address] [place] [address])(W arrior Op Med Cln Tm A Ad) [address] [place] [address])(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) TELE CONSULT [id number] Notes Entered by: GILSON THOMSON 04 Jun 2015 0811 ------- ------- ------- ------- -- Cancel for Bella bojorquez/t jad- GILSON Osuna 06/[address] [place] [address])(G yalka gy) [address] [place] [address])(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) TELE CONSULT [id number] Notes Entered by: Aster DWYER 05 Jun 2015 0859 ------- ------- ------- ------- -- U/S result VERONICA JOHNS 06/[address] [place] [address])(G ybraxtoncodenis gy) [address] [place] [address])(War rior Op Med Cln Tm A Ad) OUTPATIENT [id number] Bad cough, headach e, nasal and chest congest ion [phone] PLACIDO MERAZ 06/05 Released w/o Limitations [address] [place] [address])(W arrior Op Med Cln Tm A Ad) [address] [place] [address])(War rior Op Med Cln Tm A Ad) TELE CONSULT [id number] Notes Entered by: KANU ANGEL 07 Jun 2015 1008 ------- ------- ------- ------- -- Network results Neurolo gy 5 TENZIN HOPE 06/[address] [place] [address])(W arrior Op Med Cln Tm A Ad) [address] [place] [address])(Fam jesus Med Tm B Non-AD BCC) TELE CONSULT [id number] Notes Entered by: MANN COLON 22 Aug 2015 0755 ------- ------- ------- ------- -- Referra l for physica l therapy needed MANN COLON 08/[address] [place] [address])(F amily Med Tm B Non-AD BCC) [address] [place] [address])(War rior Op Med Cln Tm A Ad) TELE CONSULT [id number] Notes Entered by: Delgado PIERCE 26 Aug 2015 1313 ------- ------- ------- ------- -- SX - Multipl e LorenzoX / Gil ne / JOE ASH 08/26 Referred for Appointment [address] [place] [address])(W arrior Op Med Cln Tm A Ad) [address] [place] [address])(War rior Op Med Cln Tm A Ad) TELE CONSULT [id number] Notes Entered by: KANU ANGEL 28 Aug 2015 1302 ------- ------- ------- ------- -- Network Results - Neurolo gy 6 TENZIN HOPE 08/[address] [place] [address])(W arrior Op Med Cln Tm A Ad) [address] [place] [address])(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) OUTPATIENT [id number] Discuss ANI Boss 09/23 Released w/o Limitations [address] [place] [address])(G ynecolo gy) [address] [place] [address])(War rior Op Med Cln Tm A Ad) OUTPATIENT [id number] L and R shoulde r pain x 2 wks 741.401 2 TENZIN HOPE 09/25 Released w/o Limitations [address] [place] [address])(W arrior Op Med Cln Tm A Ad) [address] [place] [address])(War rior Op Med Cln Tm A Ad) TELE CONSULT [id number] Notes Entered by: JUAN ALBERTO GRIMM 02 Oct 2015 1405 ------- ------- ------- ------- -- Sx - Multipl e sx/Layla donnelly/7 [phone] JOE ASH 10/01 Referred for Appointment [address] [place] [address])(W arrior Op Med Cln Tm A Ad) [address] [place] [address])(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) TELE CONSULT [id number] Notes Entered by: DIMPLE MALIK 03 Oct 2015 0927 ------- ------- ------- ------- -- Pre-op call for Essure on 10 Oct 2015 FAMILIA THOMPSON 10/[address] [place] [address])(G ynecolo gy) [address] [place] [address])(War rior Op Med Cln Tm A Ad) OUTPATIENT [id number] cough, congest ion and ear pain TENZIN HOPE 10/02 Released w/o Limitations [address] [place] [address])(W arrior Op Med Cln Tm A Ad) [address] [place] [address])(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) OUTPATIENT [id number] essure procedu re - [phone] ANI CHOI 10/09 Released w/o Limitations [address] [place] [address])(G ynecolo gy) [address] [place] [address])(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 DIMPLE JOHNSON 10/14 Referred for Appointment [address] [place] [address])(G ynecolo gy) [address] [place] [address])(Med ication Refill Clinic) TELE CONSULT [id number] Notes Entered by: Delgado PIERCE 21 Oct 2015 1501 ------- ------- ------- ------- -- Med renewal / Champ[place] ne / ZULMA JAMISON 10/[address] [place] [address])(M edicasheryl on Refill Clinic) [address] [place] [address])(Med ication Refill Clinic) TELE CONSULT [id number] Notes Entered by: Vidal YA 17 Dec 2015 1144 ------- ------- ------- ------- -- Med bridge, Appt Jan 15 / Champag braxton / DENIZ FRANKLIN 12/[address] [place] [address])(Michel eddiogenes on Refill Clinic) [address] [place] [address])(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) OUTPATIENT [id number] [facility] s/p bella - GIANNA STRAUSS 01/06 Released w/o Limitations [address] [place] [address])(G ynecolo gy) [address] [place] [address])(War rior Op Med Cln Tm A Ad) OUTPATIENT [id number] Med Renewal s 741.401 2 TENZIN HOPE A 01/07 Released w/o Limitations [facility] [place] [facility])(W arrior Op Med Cln Tm A Ad) [facility] [place] [employer] ([facility])(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) OUTPATIENT [id number] possibl e yeast infecti on - [phone] AMAYA BAEZ 03/04 Released w/o Limitations [facility] [place] [facility])(G ynecolo gy) [facility] [place] [employer] [facility])(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) TELE CONSULT [id number] Notes Entered by: KYLE BAEZ 16 Mar 2016 1032 ------- ------- ------- ------- -- Test results LAMAR ALVARADO 03/16[facility] [place] [facility])(G ynecolo gy) [address] [place] [address] [place] [facility])(Sco tt NDF [facility]) OUTPATIENT [id number] PATRICIA Serna pt 04/10 Released w/o Limitations [facility] [place] [employer] ([facility])(S cott [facility]) [address] [place] [address] [place] [facility])(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) OUTPATIENT [id number] repeat hsg - rt side - s/p gerardoure KARI VANEGAS 04/14 Released w/o Limitations [facility] [place] LAUER[place] ([facility])(G ynecolo gy) [address] [place] [address] [place] [facility])(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) OUTPATIENT [id number] PARAGAR D INSERTI ON - [phone] KARI VANEGAS 04/21 Released w/o Limitations [facility] [place] [facility])(G ynecolo gy) [address] [place] [address] [employer] [facility])(Fam jesus Med Tm B Non-AD BCC) OUTPATIENT [id number] pressur e headach e - sore throat from drainag e - [id number] [phone] DEVIN GIBSON 06/08 Released w/o Limitations [facility] [employer] ([facility])(F amily Med Tm B Non-AD BCC) [address] [place] [address] Group [facility]War rior Op Med Cln Tm A Ad) OUTPATIENT [id number] med renewal /referr MILLY Duong 07/14 Released w/o Limitations [address] [place] [address] [place] [facility])(W arrior Op Med Cln Tm A Ad) [address] [place] [address])(War rior Op Med Cln Tm A Ad) OUTPATIENT [id number] sore throat, fever, body aches x2 days / TENZIN HOPE 09/02 Released w/o Limitations [facility] Group [facility])(W arrior Op Med Cln Tm A Ad) [address] [place] [address] Group [facility])(War rior Op Med Cln Tm A Ad) TELE CONSULT [id number] Notes Entered by: GLEN COTO 14 Sep 2016 0946 ------- ------- ------- ------- -- Network Results Radiolo gy 7 DS TENZIN HOPE 09/[address] [place] [address] Group [facility])(W arrior Op Med Cln Tm A Ad) [address] [place] [address])(War rior Op Med Cln Tm A Ad) TELE CONSULT [id number] Notes Entered by: JEN BADILLO 14 Sep 2016 1211 ------- ------- ------- ------- -- Network Results -GASTRO ENTEROL OGY 08/28/16 PAG TENIZN HOPE 09/[address] [place] [address] Group [place] [facility]W arrior Op Med Cln Tm A Ad) [address] [place] [address] Group [facility])(War rior Op Med Cln Tm A Ad) OUTPATIENT [id number] Knot near R Collar bone [id number] TENZIN HOPE 10/23 Released w/o Limitations [address] [place] [address] [place] [facility])(W arrior Op Med Cln Tm A Ad) [address] [place] [address] [place] [facility])(War rior Op Med Cln Tm A Ad) OUTPATIENT [id number] dizzy, headach es, ear aches, [id number] [phone] MILLY BEGUM 12/14 Released w/o Limitations [address] [place] [address])(W arrior Op Med Cln Tm A Ad) [address] [place] [address])(War rior Op Med Cln Tm A Ad) TELE CONSULT [id number] Notes Entered by: TONY FOFANA 06 Jan 2017 1002 ------- ------- ------- ------- -- Network results Gastroe nterolo gy 12/31/16 MMM TENZIN HOPE 01/[address] [place] [address])(W arrior Op Med Cln Tm A Ad) 35 [place] [address])(Med ication Refill Clinic) TELE CONSULT [id number] Notes Entered by: CRISTI CAREY 12 Jan 2017 1300 ------- ------- ------- ------- -- Med renewal /Kathy schuler/[phone] 12/MILLY Everett 01/[address] [place] [address])([facility] Ref[facility]) [address] [place] [address])(War ri[facility] Op Med Cln Tm A Ad) OUTPATIENT [id number] Dizzine ss, [phone] 2 BLESSINGCA PLACIDO CHRISTY 02/08 Released w/o Limitations [address] [place] [address])(W arrior Op Med Cln Tm A Ad) [address] [place] [address])([facility] Op [facility] Cln Tm A Ad) TELE CONSULT [id number] Notes Entered by: JUAN ALBERTO GRIMM 25 Feb 2017 1202 ------- ------- ------- ------- -- Sx - Dizzine ss, R ear pain/Ch sharifagnaster / DARIEN, RAVIN J 02/[address] [place] [address])(W arrior Op Med Cln Tm A Ad) [address] [place] [address])(Fam jesus Med Tm B Non-AD BCC) TELE CONSULT [id number] Notes Entered by: CARLOS MANUEL CORTES 02 Mar 2017 1615 ------- ------- ------- ------- -- Network Results Emergen Room 7 PLACIDO MERAZ 03/[address] [place] [address])(F amily Med Tm B Non-AD BCC) [address] [place] [address])(Med ication Refill Clinic) TELE CONSULT [id number] Notes Entered by: HORTENCIA OLGUIN RET R 15 Apr 2017 1145 ------- ------- ------- ------- -- Rx Renewal /Kathy schuler/[phone] [facility] WICHO RUCKER 04/[address] [place] [address])([facility]) [address] [place] [address])(War [facility] Op Med Cln Tm A Ad) OUTPATIENT [id number] ear problem s 2 months TENZIN HOPE 04/19 Released w/o Limitations [address] [place] [address])(W arrior Op Med Cln Tm A Ad) [address] [place] [address])(War rior Op Med Cln Tm A Ad) TELE CONSULT [id number] Notes Entered by: HORTENCIA OLGUIN RET R 29 Jun 2017 0726 ------- ------- ------- ------- -- Sx: Thea/Abelino heredia/ [facility] RAVIN LEDEZMA J 06/[address] [place] [address])(W arrior Op Med Cln Tm A Ad) [address] [place] [address])(War rior Op Med Cln Tm A Ad) OUTPATIENT [id number] sore throat, low grade temp 99-100, sinus congest ionkin TENZIN HOPE 06/29 Released w/o Limitations [address] [place] [address])(W arrior Op Med Cln Tm A Ad) [address] [place] [address])(War rior Op Med Cln Tm A Ad) TELE CONSULT [id number] Notes Entered by: ELISABET JOHNSON 02 Jul 2017 1226 ------- ------- ------- ------- -- Positiv e Strep Throat Culture TENZIN HOPE 07/[address] [place] [address])(W arrior Op Med Cln Tm A Ad) [address] [place] [address])(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) OUTPATIENT [id number] bloody dischar ge x 1 week - [phone] AMAYA BAEZ 07/20 Released w/o Limitations [address] [place] [address])(G ynecolo gy) [address] [place] [address])(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) TELE CONSULT [id number] Notes Entered by: KYLE BAEZ 10 Aug 2017 1317 ------- ------- ------- ------- -- Test results VERONICA JOHNS 08/[address] [place] [address])(G ynecodenis gy) [address] [place] [address])(Fam jesus Med Tm B Non-AD BCC) OUTPATIENT [id number] [facility] F/U-SX Persist Ringing L ear/cou gh/sirisha estion [id number] KOBE SELF 09/08 Released w/o Limitations [address] [place] [address])(F amily Med Tm B Non-AD BCC) [address] [place] [address])(Med ication Refill Clinic) TELE CONSULT [id number] Notes Entered by: JUAN ALBERTO GRIMM 10 Sep 2017 0839 ------- ------- ------- ------- -- Med Renewal /Kathy [facility]/[phone] RAVIN LEDEZMA 09/[address] [place] [address])([facility]) [address] [place] [address])(War rior Op Med Cln Tm A Ad) TELE CONSULT [id number] Notes Entered by: HORTENCIA OLGUIN RET 13 Sep 2017 1022 ------- ------- ------- ------- -- S[facility]: [facility] RAVIN LEDEZMA 09/[address] [place] [address])(W arrior Op Med Cln Tm A Ad) [address] [place] [address])(War rior Op Med Cln Tm A Ad) TELE CONSULT [id number] Notes Entered by: ALEJO BERNAL 23 Sep 2017 1159 ------- ------- ------- ------- -- Network Results Emergen cy Room 09/02/17 CANDI CAROLINA 09/[address] [place] [address])(W arrior Op Med Cln Tm A Ad) [address] [place] [address])(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) OUTPATIENT [id number] discuss btl/batsheva whitaker coils [phone] KARI VANEGAS 10/05 Released w/o Limitations [address] [place] [address])(G dung gy) [address] [place] [address])(Ob/ 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Ambassador) TELE CONSULT [id number] YONG FLORES 10/[address] [place] [address])(O b/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Ambassador) [address] [place] [address])(War rior Op Med Cln Tm A Ad) TELE CONSULT [id number] Notes Entered by: Vidal YEUNG 12 Oct 2017 1047 ------- ------- ------- ------- -- Network results Gastroe nterolo gy 018 ELISA MIDDLETONER Delgado 10/[address] [place] [address])(George humphrey Op Med Cln Tm A Ad) [address] [place] [address])(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) TELE CONSULT [id number] Notes Entered by: Dilma ALVAREZ 12 Oct 2017 1334 ------- ------- ------- ------- -- Surgery reminde r 13 OCT 2017 NICCI ALVAREZ 10/[address] [place] [address])(Geoffrey ybraxtoncodenis gy) [address] [place] [address])(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) TELE CONSULT [id number] Notes Entered by: SUSAN CONTRERAS 15 Oct 2017 1356 ------- ------- ------- ------- -- Scanned carlotta gy report into KARI STAHL 10/[address] [place] [address])(G ynecodenis gy) [address] [place] [address])(Med ication Refill Clinic) TELE CONSULT [id number] Notes Entered by: SAILAJA DEVLIN 21 Oct 2017 1004 ------- ------- ------- ------- -- Med Renewal / Gil limon / - sgWICHO Decker 10/[address] [place] [address])([facility]) [address] [place] [address])(Andrew cagle Op Med Cln Tm A Ad) TELE CONSULT [id number] Notes Entered by: KARTHIK SANDOVAL 22 Oct 2017 1018 ------- ------- ------- ------- -- Sx: Cough, congest ion - Gil ne - - tsg* URI SARABIA 10/22 Other Not Elsewhere Classified [address] [place] [address] [place] [facility])(W arrior Op Med Cln Tm A Ad) [address] [place] [address] [place] [facility])(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G ynecolo gy) [address] [place] [address] [place] [facility])(War rior Op Med Cln Tm A Ad) TELE CONSULT [id number] Notes Entered by: JOSE BURRIS 01 Nov 2017 1036 ------- ------- ------- ------- -- Med refill / WICHO Molina 11/[address] [place] [address] [place] [facility])(W arrior Op Med Cln Tm A Ad) [address] [place] [address] [place] [facility])(War rior Op Med Cln Tm A Ad) OUTPATIENT [id number] Feels tired/r un down/we ight gain/giraldo ir/skin very dry [id number] TENZIN HOPE 12/13 Released w/o Limitations [address] [place] [address] [place] [facility])(W arrior Op Med Cln Tm A Ad) [address] [place] [address] [place] [facility])(War rior Op Med Cln Tm A Ad) TELE CONSULT [id number] Notes Entered by: ELISABET JOHNSON 14 Dec 2017 1050 ------- ------- ------- ------- -- Lab results DARIEN, RAVIN J 12/[address] [place] [address] [place] [facility])(W arrior Op Med Cln Tm A Ad) [address] [place] [address] [place] [facility])(War rior Op Med Cln Tm A Ad) OUTPATIENT [id number] F/U for low Vitamin D - still feeling tired - decline d Virtual [id number] ANTONIO DIGGS 03/02 Released w/o Limitations [address] [place] [address] [place] [facility])(W arrior Op Med Cln Tm A Ad) [facility])(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) TELE CONSULT [id number] Notes Entered by: SLYJim SUSAN LOZA 05 Apr 2018 0733 ------- ------- ------- ------- -- Possibl e yeast infecti on and herpes outbrea NICCI eSo QIAN 04/05 Referred for Appointment [address] [place] [address])(G ynecodenis gy) [address] [place] [address])(War rior Op Med Cln Tm A Ad) TELE CONSULT [id number] Notes Entered by: LUCY PATEL 10 May 2018 1432 ------- ------- ------- ------- -- Med Renewal Request / [place] / - WICHO Wiley 05/10 Referred for Appointment [address] [place] [address])(W arrior Op Med Cln Tm A Ad) [address] [place] [address])(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) OUTPATIENT [id number] dISCUSS treatme nt options for herpes outbrea [phone] (pt request ) KARI VANEGAS 05/24 Released w/o Limitations [address] [place] [address])(G ynecolo gy) [address] [place] [address])(War rior Op Med Cln Tm A Ad) TELE CONSULT [id number] Notes Entered by: JUAN ALBERTO GRIMM 15 Aug 2018 1042 ------- ------- ------- ------- -- 2nd opinion Referra l Request /Yessy heredia/ GEOVANI JARVIS 08/15 Other Not Elsewhere Classified [address] [place] [address])(W arrior Op Med Cln Tm A Ad) [address] [place] [address])(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) OUTPATIENT [id number] 0 3 month f/u medicat ion - [phone] KARI VANEGAS 09/12 Released w/o Limitations [address] [place] [address])(G ynecolo gy) [address] [place] [address])(War rior Op Med Cln Tm A Ad) OUTPATIENT [id number] 1 Sinus Drainag e and Pressur e, [phone] 2 ANTONIO DIGGS 11/16 Released w/o Limitations [address] [place] [address])(W arrior Op Med Cln Tm A Ad) [address] [place] [address])(War rior Op Med Cln Tm A Ad) TELE CONSULT [id number] Notes Entered by: PRAKASH BRICENO 16 Nov 2018 1111 ------- ------- ------- ------- -- Pt needs written prescri ption for ama nathaly jon told her they are out of it MAUDE MORA 11/16 Medication Refill Forwarded [address] [place] [address])(W arrior Op Med Cln Tm A Ad) Procedures Combined list of: 1) Procedures from Department of Veterans Affairs facilities going back up to thelast 18 months, not all VA non-surgical procedures are included; 2) All procedures from the Department of Defense facilities. Procedure Procedure Type Code Date Perfomer Comments Sourc e No data available for this section Ambulatory [facility] TELE ASSESS & MGT SRV PROV QUAL NONPHYS HLTH CARE PRO TO EST PAT,PARENT,GUARD NOT ORIG REL ASSESS & MGT SRV PROV W/IN PREV 7 DAYS NOR LEAD ASSESS & MGT SRV/PX W/IN NXT 24 HR/SOON APT;5-10 MIN MED DIS 11/17/19 19 DoD TELE ASSESS & MGT SRV PROV QUAL NONPHYS HLTH CARE PRO TO EST PAT,PARENT,GUARD NOT ORIG REL ASSESS & MGT SRV PROV W/IN PREV 7 DAYS NOR LEAD ASSESS & MGT SRV/PX W/IN NXT 24 HR/SOON APT;5-10 MIN MED DIS 08/15/19 19 DoD DISEASE MANAGEMENT PROGRAM, FOLLOW-UP/REASSESSMENT 05/10/20 18 DoD TELE ASSESS & MGT SRV PROV QUAL NONPHYS HLTH CARE PRO TO EST PAT,PARENT,GUARD NOT ORIG REL ASSESS & MGT SRV PROV W/IN PREV 7 DAYS NOR LEAD ASSESS & MGT SRV/PX W/IN NXT 24 HR/SOON APT;5-10 MIN MED DIS 04/05/20 18 [facility] DISEASE MANAGEMENT PROGRAM, FOLLOW-UP/REASSESSMENT 11/02/19 18 DoD TELE ASSESS & MGT SRV PROV QUAL NONPHYS HLTH CARE PRO TO EST PAT,PARENT,GUARD NOT ORIG REL ASSESS & MGT SRV PROV W/IN PREV 7 DAYS NOR LEAD ASSESS & MGT SRV/PX W/IN NXT 24 HR/SOON APT;5-10 MIN MED DIS 10/23/19 18 [facility] DISEASE MANAGEMENT PROGRAM, FOLLOW-UP/REASSESSMENT 10/22/19 18 DoD REMOVAL OF INTRAUTERINE DEVICE (IUD) 10/14/19 18 DoD TELE ASSESS & MGT SRV PROV QUAL NONPHYS HLTH CARE PRO TO EST PAT,PARENT,GUARD NOT ORIG REL ASSESS & MGT SRV PROV W/IN PREV 7 DAYS NOR LEAD ASSESS & MGT SRV/PX W/IN NXT 24 HR/SOON APT;5-10 MIN MED DIS 10/13/19 18 DoD TELE ASSESS & MGT SRV PROV QUAL NONPHYS HLTH CARE PRO TO EST PAT,PARENT,GUARD NOT ORIG REL ASSESS & MGT SRV PROV W/IN PREV 7 DAYS NOR LEAD ASSESS & MGT SRV/PX W/IN NXT 24 HR/SOON APT;5-10 MIN MED DIS 09/13/19 18 DoD TELE ASSESS & MGT SRV PROV QUAL NONPHYS HLTH CARE PRO TO EST PAT,PARENT,GUARD NOT ORIG REL ASSESS & MGT SRV PROV W/IN PREV 7 DAYS NOR LEAD ASSESS & MGT SRV/PX W/IN NXT 24 HR/SOON APT;5-10 MIN MED DIS 09/10/19 18 DoD BRIEF EMOTIONAL/BEHAVIORAL ASSESSMENT (EG, DEPRESSION INVENTORY, ATTENTION-DEFICIT/HYPERACT IVITY DISORDER [ADHD] SCALE), WITH SCORING AND DOCUMENTATION, PER STANDARDIZED INSTRUMENT 07/20/20 17 DoD TELE ASSESS & MGT SRV PROV QUAL NONPHYS HLTH CARE PRO TO EST PAT,PARENT,GUARD NOT ORIG REL ASSESS & MGT SRV PROV W/IN PREV 7 DAYS NOR LEAD ASSESS & MGT SRV/PX W/IN NXT 24 HR/SOON APT;5-10 MIN MED DIS 06/29/20 17 DoD BRIEF EMOTIONAL/BEHAVIORAL ASSESSMENT (EG, DEPRESSION INVENTORY, ATTENTION-DEFICIT/HYPERACT IVITY DISORDER [ADHD] SCALE), WITH SCORING AND DOCUMENTATION, PER STANDARDIZED INSTRUMENT 04/20/20 17 [facility] DISEASE MANAGEMENT PROGRAM, FOLLOW-UP/REASSESSMENT 04/15/20 17 [facility] TELE ASSESS & MGT SRV PROV QUAL NONPHYS HLTH CARE PRO TO EST PAT,PARENT,GUARD NOT ORIG REL ASSESS & MGT SRV PROV W/IN PREV 7 DAYS NOR LEAD ASSESS & MGT SRV/PX W/IN NXT 24 HR/SOON APT;5-10 MIN MED DIS 02/26/20 17 [facility] PSYCHIATRIC EVALUATION OF HOSPITAL RECORDS, OTHER PSYCHIATRIC REPORTS, PSYCHOMETRIC AND/OR PROJECTIVE TESTS, AND OTHER ACCUMULATED DATA FOR MEDICALDIAGNOSTIC PURPOSES 09/22/19 17 [facility] INSERTION OF INTRAUTERINE DEVICE (IUD) 04/21/20 16 [facility] CATHETERIZATION AND INTRODUCTION OF SALINE OR CONTRAST MATERIAL FOR SALINE INFUSION SONOHYSTEROGRAPHY (SIS) OR HYSTEROSALPINGOGRAPHY 04/14/20 16 [facility] SCREENING PAPANICOLAOU SMEAR; OBTAINING, PREPARING AND CONVEYANCE OF CERVICAL OR VAGINAL SMEAR TO LABORATORY 03/04/20 16 [facility] CATHETERIZATION AND INTRODUCTION OF SALINE OR CONTRAST MATERIAL FOR SALINE INFUSION SONOHYSTEROGRAPHY (SIS) OR HYSTEROSALPINGOGRAPHY 01/07/20 16 [facility] PHARMACOLOGIC MANAGEMENT, INCLUDING PRESCRIPTION AND REVIEW OF MEDICATION, WHEN PERFORMED WITH PSYCHOTHERAPY SERVICES (LIST SEPARATELY IN ADDITION TO THE CODE FOR PRIMARY PROCEDURE) 11/27/19 16 [facility] TELE ASSESS & MGT SRV PROV QUAL NONPHYS HLTH CARE PRO TO EST PAT,PARENT,GUARD NOT ORIG REL ASSESS & MGT SRV PROV W/IN PREV 7 DAYS NOR LEAD ASSESS & MGT SRV/PX W/IN NXT 24 HR/SOON APT;5-10 MIN MED DIS 10/15/19 16 [facility] TELE ASSESS & MGT SRV PROV QUAL NONPHYS HLTH CARE PRO TO EST PAT,PARENT,GUARD NOT ORIG REL ASSESS & MGT SRV PROV W/IN PREV 7 DAYS NOR LEAD ASSESS & MGT SRV/PX W/IN NXT 24 HR/SOON APT;5-10 MIN MED DIS 10/11/19 16 [facility] HYSTEROSCOPY, SURGICAL; WITH BILATERAL FALLOPIAN TUBE CANNULATION TO INDUCE OCCLUSION BY PLACEMENT OF PERMANENT IMPLANTS 10/10/19 16 [facility] TELE ASSESS & MGT SRV PROV QUAL NONPHYS HLTH CARE PRO TO EST PAT,PARENT,GUARD NOT ORIG REL ASSESS & MGT SRV PROV W/IN PREV 7 DAYS NOR LEAD ASSESS & MGT SRV/PX W/IN NXT 24 HR/SOON APT;5-10 MIN MED DIS 10/03/19 16 DoD TELE ASSESS & MGT SRV PROV QUAL NONPHYS HLTH CARE PRO TO EST PAT,PARENT,GUARD NOT ORIG REL ASSESS & MGT SRV PROV W/IN PREV 7 DAYS NOR LEAD ASSESS & MGT SRV/PX W/IN NXT 24 HR/SOON APT;5-10 MIN MED DIS 10/02/19 16 DoD PSYCHOTHERAPY, 60 MINUTES WITH PATIENT 09/13/19 16 DoD TELE ASSESS & MGT SRV PROV QUAL NONPHYS HLTH CARE PRO TO EST PAT,PARENT,GUARD NOT ORIG REL ASSESS & MGT SRV PROV W/IN PREV 7 DAYS NOR LEAD ASSESS & MGT SRV/PX W/IN NXT 24 HR/SOON APT;5-10 MIN MED DIS 08/26/19 16 DoD TELE ASSESS & MGT SRV PROV QUAL NONPHYS HLTH CARE PRO TO EST PAT,PARENT,GUARD NOT ORIG REL ASSESS & MGT SRV PROV W/IN PREV 7 DAYS NOR LEAD ASSESS & MGT SRV/PX W/IN NXT 24 HR/SOON APT;5-10 MIN MED DIS 08/22/19 16 DoD PSYCHOTHERAPY, 30 MINUTES WITH PATIENT WHEN PERFORMED WITH AN EVALUATION AND MANAGEMENT SERVICE (LIST SEPARATELY IN ADDITION TO THE CODE FOR PRIMARY PROCEDURE) 06/17/20 15 DoD PSYCHOTHERAPY, 45 MINUTES WITH PATIENT WHEN PERFORMED WITH AN EVALUATION AND MANAGEMENT SERVICE (LIST SEPARATELY IN ADDITION TO THE CODE FOR PRIMARY PROCEDURE) 05/08/20 15 DoD TELE ASSESS & MGT SRV PROV QUAL NONPHYS HLTH CARE PRO TO EST PAT,PARENT,GUARD NOT ORIG REL ASSESS & MGT SRV PROV W/IN PREV 7 DAYS NOR LEAD ASSESS & MGT SRV/PX W/IN NXT 24 HR/SOON APT;5-10 MIN MED DIS 04/26/20 15 DoD SMEAR, PRIMARY SOURCE WITH INTERPRETATION; WET MOUNT FOR INFECTIOUS AGENTS (EG, SALINE, HUNTER INK, FEDERICO PREPS) 04/11/20 15 DoD TELE ASSESS & MGT SRV PROV QUAL NONPHYS HLTH CARE PRO TO EST PAT,PARENT,GUARD NOT ORIG REL ASSESS & MGT SRV PROV W/IN PREV 7 DAYS NOR LEAD ASSESS & MGT SRV/PX W/IN NXT 24 HR/SOON APT;5-10 MIN MED DIS 04/10/20 15 DoD PSYCHOTHERAPY, 45 MINUTES WITH PATIENT WHEN PERFORMED WITH AN EVALUATION AND MANAGEMENT SERVICE (LIST SEPARATELY IN ADDITION TO THE CODE FOR PRIMARY PROCEDURE) 04/10/20 15 DoD PSYCHOTHERAPY, 45 MINUTES WITH PATIENT WHEN PERFORMED WITH AN EVALUATION AND MANAGEMENT SERVICE (LIST SEPARATELY IN ADDITION TO THE CODE FOR PRIMARY PROCEDURE) 02/16/20 15 DoD PSYCHOTHERAPY, 45 MINUTES WITH PATIENT WHEN PERFORMED WITH AN EVALUATION AND MANAGEMENT SERVICE (LIST SEPARATELY IN ADDITION TO THE CODE FOR PRIMARY PROCEDURE) 12/29/19 15 DoD PSYCHOTHERAPY, 45 MINUTES WITH PATIENT WHEN PERFORMED WITH AN EVALUATION AND MANAGEMENT SERVICE (LIST SEPARATELY IN ADDITION TO THE CODE FOR PRIMARY PROCEDURE) 11/15/19 15 DoD PSYCHOTHERAPY, 45 MINUTES WITH PATIENT WHEN PERFORMED WITH AN EVALUATION AND MANAGEMENT SERVICE (LIST SEPARATELY IN ADDITION TO THE CODE FOR PRIMARY PROCEDURE) 10/17/19 15 DoD TELE ASSESS & MGT SRV PROV QUAL NONPHYS HLTH CARE PRO TO EST PAT,PARENT,GUARD NOT ORIG REL ASSESS & MGT SRV PROV W/IN PREV 7 DAYS NOR LEAD ASSESS & MGT SRV/PX W/IN NXT 24 HR/SOON APT;5-10 MIN MED DIS 09/21/19 15 DoD PSYCHOTHERAPY, 45 MINUTES WITH PATIENT WHEN PERFORMED WITH AN EVALUATION AND MANAGEMENT SERVICE (LIST SEPARATELY IN ADDITION TO THE CODE FOR PRIMARY PROCEDURE) 09/04/19 15 DoD PSYCHOTHERAPY, 45 MINUTES WITH PATIENT WHEN PERFORMED WITH AN EVALUATION AND MANAGEMENT SERVICE (LIST SEPARATELY IN ADDITION TO THE CODE FOR PRIMARY PROCEDURE) 07/24/20 14 DoD PSYCHOTHERAPY, 45 MINUTES WITH PATIENT 06/19/20 14 DoD URINE TEST, BY VISUAL COLOR COMPARISON METHODS 06/18/20 14 DoD PSYCHIATRIC DIAGNOSTIC EVALUATION WITH MEDICAL SERVICES 06/06/20 14 [facility] SMEAR, PRIMARY SOURCE WITH INTERPRETATION; WET MOUNT FOR INFECTIOUS AGENTS (EG, SALINE, HUNTER INK, FEDERICO PREPS) 06/04/20 14 DoD PSYCHOTHERAPY, 45 MINUTES WITH PATIENT 06/01/20 14 DoD PSYCHOTHERAPY, 45 MINUTES WITH PATIENT 05/15/20 14 DoD PSYCHIATRIC DIAGNOSTIC EVALUATION WITH MEDICAL SERVICES 04/26/20 14 DoD PSYCHOTHERAPY, 45 MINUTES WITH PATIENT 04/20/20 14 DoD INTERACTIVE COMPLEXITY (LIST SEPARATELY IN ADDITION TO THE CODE FOR PRIMARY PROCEDURE) 04/06/20 14 DoD PSYCHOTHERAPY, 60 MINUTES WITH PATIENT 03/16/20 14 DoD PSYCHOTHERAPY, 60 MINUTES WITH PATIENT WHEN PERFORMED WITH AN EVALUATION AND MANAGEMENT SERVICE (LIST SEPARATELY IN ADDITION TO THE CODE FOR PRIMARY PROCEDURE) 03/08/20 14 DoD PSYCHOTHERAPY, 60 MINUTES WITH PATIENT 03/01/20 14 DoD DIAPHRAGM OR CERVICAL CAP FITTING WITH INSTRUCTIONS 02/21/20 14 DoD PSYCHOTHERAPY, 60 MINUTES WITH PATIENT 02/16/20 14 DoD INTERACTIVE COMPLEXITY (LIST SEPARATELY IN ADDITION TO THE CODE FOR PRIMARY PROCEDURE) 02/07/20 14 DoD PSYCHOTHERAPY, 45 MINUTES WITH PATIENT 01/30/20 14 DoD PSYCHOTHERAPY, 60 MINUTES WITH PATIENT WHEN PERFORMED WITH AN EVALUATION AND MANAGEMENT SERVICE (LIST SEPARATELY IN ADDITION TO THE CODE FOR PRIMARY PROCEDURE) 01/05/20 14 DoD INTERACTIVE COMPLEXITY (LIST SEPARATELY IN ADDITION TO THE CODE FOR PRIMARY PROCEDURE) 12/20/19 14 DoD PSYCHOTHERAPY, 60 MINUTES WITH PATIENT 12/02/19 14 DoD SUBSEQ CARE VISIT () [EXCLS:PATIENTS WHO ARE SEEN FOR A CONDITION UNREL TO / CARE (EG,AN UP RESPIR INFECT;PATIENTS SEEN FOR CONSULTATION ONLY,NOT FOR CONT CARE)] 11/28/19 14 DoD INTERACTIVE COMPLEXITY (LIST SEPARATELY IN ADDITION TO THE CODE FOR PRIMARY PROCEDURE) 11/21/19 14 DoD PSYCHOTHERAPY, 60 MINUTES WITH PATIENT 11/18/19 14 DoD SUBSEQ CARE VISIT () [EXCLS:PATIENTS WHO ARE SEEN FOR A CONDITION UNREL TO / CARE (EG,AN UP RESPIR INFECT;PATIENTS SEEN FOR CONSULTATION ONLY,NOT FOR CONT CARE)] 11/14/19 14 DoD TELE ASSESS & MGT SRV PROV QUAL NONPHYS HLTH CARE PRO TO EST PAT,PARENT,GUARD NOT ORIG REL ASSESS & MGT SRV PROV W/IN PREV 7 DAYS NOR LEAD ASSESS & MGT SRV/PX W/IN NXT 24 HR/SOON APT;5-10 MIN MED DIS 11/09/19 14 DoD INTERACTIVE COMPLEXITY (LIST SEPARATELY IN ADDITION TO THE CODE FOR PRIMARY PROCEDURE) 11/07/19 14 [facility] MEDICAL NUTRITION THERAPY; INITIAL ASSESSMENT AND INTERVENTION, INDIVIDUAL, [id number] WITH THE PATIENT, EACH 15 MINUTES 11/03/19 14 [facility] INTERACTIVE COMPLEXITY (LIST SEPARATELY IN ADDITION TO THE CODE FOR PRIMARY PROCEDURE) 10/31/19 14 DoD TELE ASSESS & MGT SRV PROV QUAL NONPHYS HLTH CARE PRO TO EST PAT,PARENT,GUARD NOT ORIG REL ASSESS & MGT SRV PROV W/IN PREV 7 DAYS NOR LEAD ASSESS & MGT SRV/PX W/IN NXT 24 HR/SOON APT;5-10 MIN MED DIS 10/31/19 14 DoD TELE ASSESS & MGT SRV PROV QUAL NONPHYS HLTH CARE PRO TO EST PAT,PARENT,GUARD NOT ORIG REL ASSESS & MGT SRV PROV W/IN PREV 7 DAYS NOR LEAD ASSESS & MGT SRV/PX W/IN NXT 24 HR/SOON APT;5-10 MIN MED DIS 10/28/19 14 [facility] SUBSEQ CARE VISIT () [EXCLS:PATIENTS WHO ARE SEEN FOR A CONDITION UNREL TO / CARE (EG,AN UP RESPIR INFECT;PATIENTS SEEN FOR CONSULTATION ONLY,NOT FOR CONT CARE)] 10/27/19 14 [facility] SUBSEQ CARE VISIT () [EXCLS:PATIENTS WHO ARE SEEN FOR A CONDITION UNREL TO / CARE (EG,AN UP RESPIR INFECT;PATIENTS SEEN FOR CONSULTATION ONLY,NOT FOR CONT CARE)] 10/20/19 14 [facility] PSYCHOTHERAPY, 60 MINUTES WITH PATIENT 10/18/19 14 [facility] SUBSEQ CARE VISIT () [EXCLS:PATIENTS WHO ARE SEEN FOR A CONDITION UNREL TO / CARE (EG,AN UP RESPIR INFECT;PATIENTS SEEN FOR CONSULTATION ONLY,NOT FOR CONT CARE)] 10/14/19 14 [facility] SUBSEQ CARE VISIT () [EXCLS:PATIENTS WHO ARE SEEN FOR A CONDITION UNREL TO / CARE (EG,AN UP RESPIR INFECT;PATIENTS SEEN FOR CONSULTATION ONLY,NOT FOR CONT CARE)] 10/06/19 14 [facility] FAMILY PSYCHOTHERAPY (CONJOINT PSYCHOTHERAPY) (WITH PATIENT PRESENT), 50 MINUTES 10/05/19 14 [facility] PSYCHOTHERAPY, 60 MINUTES WITH PATIENT 09/28/19 14 [facility] SUBSEQ CARE VISIT () [EXCLS:PATIENTS WHO ARE SEEN FOR A CONDITION UNREL TO / CARE (EG,AN UP RESPIR INFECT;PATIENTS SEEN FOR CONSULTATION ONLY,NOT FOR CONT CARE)] 09/25/19 14 [facility] SUBSEQ CARE VISIT () [EXCLS:PATIENTS WHO ARE SEEN FOR A CONDITION UNREL TO / CARE (EG,AN UP RESPIR INFECT;PATIENTS SEEN FOR CONSULTATION ONLY,NOT FOR CONT CARE)] 09/21/19 14 [facility] PSYCHOTHERAPY, 60 MINUTES WITH PATIENT 09/21/19 14 [facility] SUBSEQ CARE VISIT () [EXCLS:PATIENTS WHO ARE SEEN FOR A CONDITION UNREL TO / CARE (EG,AN UP RESPIR INFECT;PATIENTS SEEN FOR CONSULTATION ONLY,NOT FOR CONT CARE)] 09/15/19 14 [facility] PSYCHIATRIC DIAGNOSTIC EVALUATION 09/14/19 14 [facility] SUBS CARE VISIT () [EXCLS:PATIENTS WHO ARE SEEN FOR A CONDITION UNREL TO / CARE (EG,AN UP RESPIR INFECT;PATIENTS SEEN FOR CONSULTATION ONLY,NOT FOR CONT CARE)] 09/08/19 14 [facility] SUBSEQ CARE VISIT () [EXCLS:PATIENTS WHO ARE SEEN FOR A CONDITION UNREL TO / CARE (EG,AN UP RESPIR INFECT;PATIENTS SEEN FOR CONSULTATION ONLY,NOT FOR CONT CARE)] 08/28/19 14 [facility] SUBSEQ CARE VISIT () [EXCLS:PATIENTS WHO ARE SEEN FOR A CONDITION UNREL TO / CARE (EG,AN UP RESPIR INFECT;PATIENTS SEEN FOR CONSULTATION ONLY,NOT FOR CONT CARE)] 08/17/19 14 [facility] SUBSEQ CARE VISIT () [EXCLS:PATIENTS WHO ARE SEEN FOR A CONDITION UNREL TO / CARE (EG,AN UP RESPIR INFECT;PATIENTS SEEN FOR CONSULTATION ONLY,NOT FOR CONT CARE)] 07/18/20 13 [facility] SUBSEQ CARE VISIT () [EXCLS:PATIENTS WHO ARE SEEN FOR A CONDITION UNREL TO / CARE (EG,AN UP RESPIR INFECT;PATIENTS SEEN FOR CONSULTATION ONLY,NOT FOR CONT CARE)] 07/06/20 13 [facility] ULTRASOUND, UTERUS, REAL TIME WITH IMAGE DOCUMENTATION, LIMITED (EG, HEART BEAT, PLACENTAL LOCATION, POSITION AND/OR QUALITATIVE AMNIOTIC FLUID VOLUME), 1 OR MORE FETUSES 05/25/20 13 [facility] ULTRASOUND, UTERUS, REAL TIME WITH IMAGE DOCUMENTATION,TRANSVAGINAL 05/05/20 13 [facility] ULTRASOUND, UTERUS, REAL TIME WITH IMAGE DOCUMENTATION,TRANSVAGINAL 05/01/20 13 [facility] TELE ASSESS & MGT SRV PROV QUAL NONPHYS HLTH CARE PRO TO EST PAT,PARENT,GUARD NOT ORIG REL ASSESS & MGT SRV PROV W/IN PREV 7 DAYS NOR LEAD ASSESS & MGT SRV/PX W/IN NXT 24 HR/SOON APT;5-10 MIN MED DIS 04/28/20 13 [facility] TELE ASSESS & MGT SRV PROV QUAL NONPHYS HLTH CARE PRO TO EST PAT,PARENT,GUARD NOT ORIG REL ASSESS & MGT SRV PROV W/IN PREV 7 DAYS NOR LEAD ASSESS & MGT SRV/PX W/IN NXT 24 HR/SOON APT;5-10 MIN MED DIS 03/09/20 13 [facility] TELE ASSESS & MGT SRV PROV QUAL NONPHYS HLTH CARE PRO TO EST PAT,PARENT,GUARD NOT ORIG REL ASSESS & MGT SRV PROV W/IN PREV 7 DAYS NOR LEAD ASSESS & MGT SRV/PX W/IN NXT 24 HR/SOON APT;5-10 MIN MED DIS 03/03/20 13 [facility] ELECTROCARDIOGRAM, ROUTINE ECG WITH AT LEAST 12 LEADS; WITH INTERPRETATION AND REPORT 02/22/20 13 [facility] PSYCHIATRIC EVALUATION OF HOSPITAL RECORDS, OTHER PSYCHIATRIC REPORTS, PSYCHOMETRIC AND/OR PROJECTIVE TESTS, AND OTHER ACCUMULATED DATA FOR MEDICALDIAGNOSTIC PURPOSES 11/15/19 13 [facility] TELE ASSESS & MGT SRV PROV QUAL NONPHYS HLTH CARE PRO TO EST PAT,PARENT,GUARD NOT ORIG REL ASSESS & MGT SRV PROV W/IN PREV 7 DAYS NOR LEAD ASSESS & MGT SRV/PX W/IN NXT 24H/SOON APT; 11-20 MIN MED DIS 06/22/20 12 [facility] INDIVIDUAL PSYCHOTHERAPY, INSIGHT ORIENTED, BEHAVIOR MODIFYING AND/OR SUPPORTIVE, IN AN OFFICE OR OUTPATIENT FACILITY, APPROXIMATELY 20 TO 30 MINUTES [id number] WITH THE PATIENT 02/01/20 12 [facility] INDIVIDUAL PSYCHOTHERAPY, INSIGHT ORIENTED, BEHAVIOR MODIFYING AND/OR SUPPORTIVE, IN AN OFFICE OR OUTPATIENT FACILITY, APPROXIMATELY 45 TO 50 MINUTES [id number] WITH THE PATIENT 01/11/20 12 [facility] PSYCHIATRIC DIAGNOSTIC INTERVIEW EXAMINATION 01/07/20 12 [facility] URINE TEST, BY VISUAL COLOR COMPARISON METHODS 08/05/19 11 [facility] INFECTIOUS AGENT ANTIGEN DETECTION BY IMMUNOASSAY WITH DIRECT OPTICAL (IE, VISUAL) OBSERVATION; STREPTOCOCCUS, GROUP A 08/05/19 11 [facility] TELE ASSESS & MGT SRV PROV QUAL NONPHYS HLTH CARE PRO TO EST PAT,PARENT,GUARD NOT ORIG REL ASSESS & MGT SRV PROV W/IN PREV 7 DAYS NOR LEAD ASSESS & MGT SRV/PX W/IN NXT 24 HR/SOON APT;5-10 MIN MED DIS 03/31/20 10 [facility] REMOVAL OF INTRAUTERINE DEVICE (IUD) 01/15/20 10 [facility] DETERMINATION OF REFRACTIVE STATE 01/01/20 10 [facility] TELE ASSESS & MGT SRV PROV QUAL NONPHYS HLTH CARE PRO TO EST PAT,PARENT,GUARD NOT ORIG REL ASSESS & MGT SRV PROV W/IN PREV 7 DAYS NOR LEAD ASSESS & MGT SRV/PX W/IN NXT 24 HR/SOON APT;5-10 MIN MED DIS 12/20/19 10 [facility] INFLUENZA VIRUS VACCINE, TRIVALENT, LIVE (LAIV3), FOR INTRANASAL USE 08/29/19 10 [facility] INSERTION OF INTRAUTERINE DEVICE (IUD) 08/20/19 10 [facility] TELE ASSESS & MGT SRV PROV QUAL NONPHYS HLTH CARE PRO TO EST PAT,PARENT,GUARD NOT ORIG REL ASSESS & MGT SRV PROV W/IN PREV 7 DAYS NOR LEAD ASSESS & MGT SRV/PX W/IN NXT 24 HR/SOON APT;5-10 MIN MED DIS 08/14/19 10 [facility] SCREENING PAPANICOLAOU SMEAR; OBTAINING, PREPARING AND CONVEYANCE OF CERVICAL OR VAGINAL SMEAR TO LABORATORY 08/05/19 10 [facility] SUBSEQ CARE VISIT () [EXCLS:PATIENTS WHO ARE SEEN FOR A CONDITION UNREL TO / CARE (EG,AN UP RESPIR INFECT;PATIENTS SEEN FOR CONSULTATION ONLY,NOT FOR CONT CARE)] 06/18/20 [facility] SUBSEQ CARE VISIT () [EXCLS:PATIENTS WHO ARE SEEN FOR A CONDITION UNREL TO / CARE (EG,AN UP RESPIR INFECT;PATIENTS SEEN FOR CONSULTATION ONLY,NOT FOR CONT CARE)] 06/11/20 [facility] SUBSEQ CARE VISIT () [EXCLS:PATIENTS WHO ARE SEEN FOR A CONDITION UNREL TO / CARE (EG,AN UP RESPIR INFECT;PATIENTS SEEN FOR CONSULTATION ONLY,NOT FOR CONT CARE)] 06/03/20 09 [facility] INFLUENZA VIRUS VACCINE, TRIVALENT (IIV3), SPLIT VIRUS, 0.5 ML DOSAGE, FOR INTRAMUSCULAR USE 05/16/20 [facility] SUBSEQ CARE VISIT () [EXCLS:PATIENTS WHO ARE SEEN FOR A CONDITION UNREL TO / CARE (EG,AN UP RESPIR INFECT;PATIENTS SEEN FOR CONSULTATION ONLY,NOT FOR CONT CARE)] 05/16/20 [facility] SUBSEQ CARE VISIT () [EXCLS:PATIENTS WHO ARE SEEN FOR A CONDITION UNREL TO / CARE (EG,AN UP RESPIR INFECT;PATIENTS SEEN FOR CONSULTATION ONLY,NOT FOR CONT CARE)] 04/16/20 [facility] SUBSEQ CARE VISIT () [EXCLS:PATIENTS WHO ARE SEEN FOR A CONDITION UNREL TO / CARE (EG,AN UP RESPIR INFECT;PATIENTS SEEN FOR CONSULTATION ONLY,NOT FOR CONT CARE)] 03/25/20 [facility] SUBSEQ CARE VISIT () [EXCLS:PATIENTS WHO ARE SEEN FOR A CONDITION UNREL TO / CARE (EG,AN UP RESPIR INFECT;PATIENTS SEEN FOR CONSULTATION ONLY,NOT FOR CONT CARE)] 02/21/20 [facility] SUBSEQ CARE VISIT () [EXCLS:PATIENTS WHO ARE SEEN FOR A CONDITION UNREL TO / CARE (EG,AN UP RESPIR INFECT;PATIENTS SEEN FOR CONSULTATION ONLY,NOT FOR CONT CARE)] 01/24/20 [facility] INDIVIDUAL PSYCHOTHERAPY, INSIGHT ORIENTED, BEHAVIOR MODIFYING AND/OR SUPPORTIVE, IN AN OFFICE OR OUTPATIENT FACILITY, APPROXIMATELY 20 TO 30 MINUTES [id number] WITH THE PATIENT 01/03/20 [facility] SUBSEQ CARE VISIT () [EXCLS:PATIENTS WHO ARE SEEN FOR A CONDITION UNREL TO / CARE (EG,AN UP RESPIR INFECT;PATIENTS SEEN FOR CONSULTATION ONLY,NOT FOR CONT CARE)] 01/03/20 [facility] URINE TEST, BY VISUAL COLOR COMPARISON METHODS 11/03/19 [facility] TOBACCO USE CESSATION INTERVENTION, COUNSELING (COPD, CAP, CAD, ASTHMA) (DM) (PV) 10/04/19 [facility] SCREENING PAPANICOLAOU SMEAR; OBTAINING, PREPARING AND CONVEYANCE OF CERVICAL OR VAGINAL SMEAR TO LABORATORY 09/18/19 09 [facility] HEPATITIS B VACCINE (HEPB), ADULT DOSAGE, 3 DOSE SCHEDULE, FOR INTRAMUSCULAR USE 07/05/20 [facility] HEPATITIS B VACCINE (HEPB), ADULT DOSAGE, 3 DOSE SCHEDULE, FOR INTRAMUSCULAR USE 04/04/20 08 [facility] Social History Combined list of available smoking, [...] Plan No data available for this section 12/07/2024 Ambulatory Pharmacy Functional Status Combined list of recent functional and cognitive assessments recorded at [facility] Functional [place] Measurement (FIM) Scale: 1 = Total Assistance (Subject = 0% +), 2 = Maximal Assistance (Subject = 25% +), 3 = Moderate Assistance (Subject = 50% +), 4 = Minimal Assistance (Subject = 75% +), 5 = Supervision, 6 = Modified [place] (Device), 7 = Complete [place] (Timely, Safely). Assessment Date/Time Source Assessment Type Assessment Skill Assessment Score Assessment Details No data available for this section
--- OUTSIDE RECORDS SUMMARY | 2024-12-07 01:28 | XMS_ITS | Clinical Summary ---
Author Organization [facility] Address [facility] [place] [address] Care Team Providers Care [employer] Buffer Name Role Phone Kesha Quinones MD Unavailable Sandie Arriola MD Primary Care Provider + [...] (03/06/2024): Psychiatry is managing her trazodone. Asthma ([facility]) [id number] disease Overview (03/06/2024): Saw neurology and tried taking gabapentin but did not tolerate. Managing with symptoms without any intervention at this time. 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 Sex Female 8:26 PM CDT Gender Identity Not on file Sexual Orientation Not on file Last Filed Vital Signs Vital Sign Reading Time Taken Comments Blood Pressure 126/75 08/14/2024 1:12 PM DEMOLITION WORKER Pulse 78 08/14/2024 1:12 PM DEMOLITION WORKER Temperature 36.4 C (97.6 F) 08/14/2024 1:12 PM DEMOLITION WORKER Respiratory Rate 17 04/24/2024 10:30 AM CDT Oxygen Saturation 97% 08/14/2024 1:12 PM DEMOLITION WORKER Inhaled Oxygen Concentration - - Weight 65.8 kg (145 lb) 08/14/2024 1:12 PM DEMOLITION WORKER Height 156.2 cm (5' 1.5 ) 08/14/2024 1:12 PM DEMOLITION WORKER Body Mass Index 26.95 08/14/2024 1:12 PM DEMOLITION WORKER Plan of Treatment Upcoming Encounters Date Type Department Care Team (Late st Contact Info) Description 03/08/2025 9:00 AM CDT Allied Health/Nurse Visit [address] [id number] Sandie Arriola MD [address] [facility] [address] [place] [address] [phone] 03/15/2025 9:50 AM CDT Office Visit [address] [phone] Sandie Arriola MD [address] [facility] [address] [place] [address] [phone] Health Maintenance Due Date Last Done Comments [...] or Tdap) 11/30/2033 12/01/2023, 11/20/2013 PHQ-2 (Physician [place]) Completed 08/03/2024 Meningococcal B Vaccine Aged Out [...] Relevant to Health [place] [address] [place] [address] Care Teams [employer] Relationship Specialty Start Date End Date Sandie Arriola MD [address] [place] [phone] PCP - General FAMILY PRACTICE 03/06/24 Kesha Quinones MD [address] [place] [address] Referring Physician KULWINDER 10/08/17
--- OUTSIDE RECORDS SUMMARY | 2024-12-07 01:28 | XMS_ITS | Encounter Summary ---
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 Legal Sex Female 8:26 PM CDT Gender Identity Not on file Sexual Orientation Not on file documented as of this encounter Plan of Treatment Upcoming Encounters Date Type Department Care Team (Late st Contact Info) Description 03/08/2025 9:00 AM CDT Allied Health/Nurse Visit [facility] Family Medicine - [place] [address] [place] [address] Sandie Arriola MD [address] [place] [address] 03/15/2025 9:50 AM CDT Office Visit [facility] Family Medicine - [place] [address] [place] [address] Sandie Arriola MD [address] [place], [place] [phone] documented as of this encounter Procedures Procedure [...] on filedocumented in this encounter Care Teams Home Appliance Technician Relationship Specialty Start Date End Date Noel Cerna MD [address] [place] [address] PCP - General FAMILY PRACTICE 06/04/20 03/05/24 Sandie Arriola MD [address] [place] [id number] PCP - General FAMILY PRACTICE 03/06/24 Kesha Quinones MD [address] [place] [address] Referring Physician OBJAMESN 10/08/17 documented as of this encounter
--- OUTSIDE RECORDS SUMMARY | 2024-12-07 01:29 | XMS_ITS | Data Portability ---
Author Organization [facility] [place] Address [address] [place] [address] [place] [address] Care Team Providers Care Retail Helper Name Role Phone SUREKHA CORNELIUS Primary Care Provider Assessment No assessment recorded. Plan of Treatment Reminders Order Date Submit Date Provider Last Modified By Organization Details Last Modified Time Details Appointments SURG Diagnosti c Lap 2024 12:00P Michel BETANCOURT MD Not available Not available Not available SURG POST OP 2024 09:30A Michel BETANCOURT MD Not available Not available Not available Lab urinalysi s, dipstick 2024 025 [email or web address] [place], [address], [place], [address], 11/21/2024 15:25:11 culture, urine 2024 025 [facility] (Lab), [address], [place], [address], 11/22/2024 23:05:35 test, urine 2023 [email or web address], [address], [place], [address], 08/09/2023 15:04:33 hormone panel, serum or plasma 2022 023 [email or web address] ([facility]), [address], [place], [address], 07/01/2023 13:18:56 Referral None recorded. Procedures None recorded. Surgeries laparosco py, diagnosti c (SURG) 2024 025 [id number] [facility], [address], [place], [address], 12/06/2024 13:48:25 hysterosc opy, with endometri al ablation (SURG) 2022 024 [email or web address] Chidi Betancourt MD, [address], [place], [address], 09/04/2024 16:15:34 Imaging US, pelvis 2024 025 [email or web address] [place], [address], [address], [place], [address], 11/23/2024 10:19:18 US, transvagi nal 2024 025 [email or web address] [place], [address], [address], [place], [address], 11/23/2024 10:19:18 US, pelvis, complete 2024 025 [email or web address] [place], [address], [address], [place], [address], 12/04/2024 10:40:50 Medication Orders [place] 10 mg-325 mg tablet 2022 023 [email or web address] [facility][id number], [address] [facility], [place], [place], [id number], 11/21/2024 14:17:09 Xanax 0.5 mg tablet 2022 023 [email or web address] [facility] #[id number], [address] [facility], [place], [place], [phone], 11/21/2024 14:16:35 ibuprofen 800 mg tablet [email or web address] [place] [address] [facility] #29742, [address] [facility], [place], [place], [id number], 11/21/2024 14:16:58 ondansetr on 8 mg disintegr ating tablet [email or web address] [facility][id number], [address] [facility], [place], [place], [id number], 11/21/2024 14:05:18 Loestrin Fe 1/20 (28-Day) 1 mg-20 mcg (21)/75 mg (7) tablet [email or web address] [facility] [address] [facility][id number], [address] [facility], [place], [place], [id number], 11/21/2024 14:16:38 Patient TargetsNo targets recorded. Patient InstructionsNo instructions recorded. Reason for Referral None Reported. Results Created Date Observation Date Name Description Value Unit Range Abnormal Flag Note LastModifiedBy Organization Detail LastModifiedTime 08/09/19 24 08/09/2023 pregn zulma test, urine HCG negati ve Not Available [place] [address], [place], [address], 08/09/2023 15:04:20 11/22/19 25 11/21/2024 urina lysis , dipst ick Leukocytes - Not Available [facility] [address], [place], [address], 11/21/2024 15:24:28 11/22/19 25 11/21/2024 urina lysis , dipst ick Nitrite - Not Available [place] [address], [place], [address], 11/21/2024 15:24:28 11/22/19 25 11/21/2024 urina lysis , dipst ick Urobilinogen - Not Available [facility] [address], [place], [address], 11/21/2024 15:24:28 11/22/19 25 11/21/2024 urina lysis , dipst ick Protein trace Not Available [place] [address], [place], [address], 11/21/2024 15:24:28 11/22/19 25 11/21/2024 urina lysis , dipst ick pH 5 Not Available [place] [address], [place], [address], 11/21/2024 15:24:28 11/22/19 25 11/21/2024 urina lysis , dipst ick Specific [place] 1.000 Not Available [facility] len [address], [place], [address], 11/21/2024 15:24:28 11/22/19 25 11/21/2024 urina lysis , dipst ick Ketone - Not Available [place] [address], [place], [address], 11/21/2024 15:24:28 11/22/19 25 11/21/2024 urina lysis , dipst ick Bilirubin - Not Available [facility] yan [address], [place], [address], 11/21/2024 15:24:28 11/22/19 25 11/21/2024 urina lysis , dipst ick Glucose - Not Available [place] [address], [place], [address], 11/21/2024 15:24:28 11/22/19 25 11/21/2024 urina lysis , dipst ick Appearance cloudy Not Available [facility] [address], [place], [address], 11/21/2024 15:24:28 11/22/19 25 11/21/2024 urina lysis , dipst ick Color light yellow Not Available [place] [address], [place], [address], 11/21/2024 15:24:28 11/23/19 25 11/22/2024 US, pelvi s No observ ation record ed. [email or web address] [place] [address], [place], [address], 11/22/2024 13:40:28 11/23/19 25 11/22/2024 US, trans vagin al No observ ation record ed. [email or web address] [place] [address], [place], [address], 11/22/2024 13:42:01 11/23/19 25 11/22/2024 US, pelvi s No observ ation record ed. [email or web address] [address], [place], [address], 11/26/2024 21:08:16 Result Notes None recorded. Problems Name Problem SNOMED Code Status Onset Date Resolution Date Notes Provider Name and Address Organization Details Recorded Time Endometrios is (clinical) 300006988 Active 2023 Enedelia Leger [facility] 5 14:04:02 Moderate recurrent major depression 96702366 Active 2023 Enedelia Leger [facility] 5 14:04:02 Insomnia 602575552 Completed 201310/03/2013 Enedelia Leger [facility] 5 11:59:29 Asthma 543913883 Active Enedelia Leger [facility] 5 14:04:02 Irritable bowel syndrome with diarrhea 767335206 Active 2015 [facility] 14:04:02 Generalized anxiety disorder 22071334 Completed 201310/03/2013 [facility] 5 11:59:29 Gastroesoph ageal reflux disease without esophagitis 303654746 Active 2023 [facility] 5 14:04:02 Sinusitis 92003540 Active 2023 [facility] 5 14:04:02 Panic disorder 930402977 Active 2023 [facility] 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 5 14:04:02 Pain in female pelvis 206508764 Active 2023 [facility] 5 14:04:02 Migraine with aura 1266243 Active 2023 [facility] 5 14:04:02 Cigarette smoker 56206818 Active 2023 [facility] 5 14:04:02 Prediabetes 906784276 Active 2023 [facility] 5 14:04:02 Adjustment disorder with mixed anxiety and depressed mood 410238367 Active 2023 [facility] 5 14:04:02 Problem Notes None recorded. Procedures Surgical History Date Name Laterality Status Provider Name and Address Organization Details Recorded Time 024 Endometrial Ablation with Hysteroscopy completed Chidi Betancourt MD [address], [place], [address], [facility] 08/09/2023 17:52:[address] [facility] 08/09/2023 14:35:[address] [facility] 08/09/2023 14:35:41 023 Hysteroscopy completed Chidi Betancourt MD [address], [place], [address], [facility] 02/21/2023 00:07:31 015 Removal of fallopian tube completed [facility] 12/10/2022 15:46:[address] [facility] 12/10/2022 15:43:57 Imaging Results Imaging Date Name Status LastModified by Organization Details LastModified Time 11/22/2024 US, pelvis completed [email or web address] [place] [address], [place], [address], 11/22/2024 13:40:28 11/22/2024 US, transvaginal completed [email or web address] [facility] [address], [place], [address], 11/22/2024 13:42:01 11/22/2024 US, pelvis completed [email or web address] [address], [place], [address], 11/26/2024 21:08:16 Procedure Notes None recorded. Medical Equipment None Reported. Allergies Allergen ID Allergen Name Allergen Category Reaction Reaction Severity Criticality Documentation Date Start Date Code Code System Note Provider Name and Address Organization Details Recorded Time [address] [facility] Not available Not available Not available 11/21/20242013 8745 RxNorm Other react ions and sever ities : 'Unkn own'. Enedelia vora [facility] 5 14:04:01 29087 fluoxetin e medicatio n diarrhea Not available Not available 11/21/20242013 4493 RxNorm [facility] 14:04:01 54443 sertralin e medicatio n other Not available Not available 11/21/20242013 02176 RxNorm Other react ions and sever ities : 'Unkn own'. Enedelia vora [facility] 5 14:04:01 71946 metoclopr amide Not available other Not available Not available 11/21/20242013 6915 RxNorm Other react ions and sever ities : 'Anxi ety', and 'Unkn own'. [facility] 14:04:01 62279 citalopra m medicatio n hives rash swelling Not available Not available Not available Not available 11/21/20242019 2556 RxNorm Enedelia vora [facility] 5 14:04:01 99789 escitalop emigdio Not available rash swelling Not available Not available Not available 11/21/20242019 37267 8 RxNorm Other react ions and sever ities : 'Thro at swell ing', and 'Unkn own'. [facility] 14:04:01 Medications Name Sig Start Date Stop Date Status Note LastModified by Organization Details LastModified Time fluoxetine 40 mg capsule TAKE 1 CAPSULE BY MOUTH EVERY MORNING 11/21 completed Not Available Not Available Not Available cyclobenzap rine 10 mg tablet TAKE 1 TABLET BY MOUTH THREE TIMES DAILY NEEDED FOR MUSCLE SPASM 11/21 completed Not Available Not Available Not Available amoxicillin 500 mg capsule TAKE 1 CAPSULE BY MOUTH THREE TIMES DAILY UNTIL GONE 11/21 completed Not Available Not Available Not Available buspirone 5 mg tablet TAKE 1 TABLET BY MOUTH TWICE DAILY 11/21 completed Not Available Not Available Not Available trazodone 50 mg tablet TAKE 1 TABLET BY MOUTH DAILY AT BEDTIME NEEDED 11/22 completed Not Available Not Available Not Available azithromyci n 250 mg tablet TK 2 TS PO ON DAY 1, THEN TK 1 T PO D FOR 4 DAYS 11/21 completed Not Available Not Available Not Available ibuprofen 800 mg tablet TAKE 1 TABLET BY MOUTH THREE TIMES DAILY NEEDED FOR PAIN 11/21 completed Not Available Not Available Not Available sumatriptan 100 mg tablet Take 100 mg by oral route. 11/22 completed Not Available Not Available Not Available hydrocodone 5 mg-acetamin ophen 325 mg tablet TAKE 1 TABLET BY MOUTH EVERY 6 HOURS active Not Available Not Available No t Available ondansetron HCl 8 mg tablet Take 1 tablet 2 hours before the procedure . 11/21 completed Not Available Not Available Not Available famotidine 40 mg tablet TAKE 1 TABLET BY MOUTH DAILY 11/21 completed Not Available Not Available Not Available dextroamphe tamine-amph etamine 10 mg tablet TAKE 1 TABLET BY MOUTH TWICE DAILY 12/10 completed Not Available Not Available Not Available phentermine 15 mg capsule TAKE 1 CAPSULE BY MOUTH EVERY DAY 11/21 completed Not Available Not Available Not Available hydrocodone 10 mg-acetamin ophen 325 mg tablet Take 1 tablet 2 hours before the procedure . 11/21 completed Not Available Not Available Not Available triamcinolo ne acetonide 0.1 % topical cream APPLY THIN LAYER TOPICALLY TO THE AFFECTED AREA TWICE DAILY 11/21 completed Not Available Not Available Not Available phentermine 30 mg capsule TAKE 1 CAPSULE BY MOUTH EVERY DAY 11/21 completed Not Available Not Available Not Available ondansetron 8 mg disintegrat ing tablet DISSOLVE 1 TABLET ON THE TONGUE 2 HOURS BEFORE PROCEDURE 11/21 completed Not Available Not Available Not Available lamotrigine 25 mg tablet TAKE 1 TABLET BY MOUTH AT BEDTIME FOR 2 WEEKS THEN TAKE 2 TABLETS BY MOUTH DAILY AT BEDTIME 11/21 completed Not Available Not Available Not Available pantoprazol e 20 mg tablet,mera yed release 11/22 completed Not Available Not Available Not Available alprazolam 0.5 mg tablet Take 1 tablet 2 hours before the procedure . 11/21 completed Not Available Not Available Not Available amitriptyli ne 25 mg tablet 25 mg by oral route. active Not Available Not Available No t Available fluoxetine 20 mg tablet TAKE 1 TABLET BY MOUTH EVERY MORNING 12/10 completed Not Available Not Available Not Available dextroamphe tamine-amph etamine 20 mg tablet TAKE 1 TABLET BY MOUTH TWICE DAILY 12/10 completed Not Available Not Available Not Available omeprazole 20 mg capsule,del ayed release 11/21 completed Not Available Not Available Not Available ergocalcife rol (vitamin D2) 1,250 mcg (50,000 unit) capsule TAKE 1 CAPSULE BY MOUTH 1 TIME PER WEEK FOR 12 WEEKS 12/10 completed Not Available Not Available Not Available oxycodone-a cetaminophe n 7.5 mg-325 mg tablet Take 1 tablet by oral route. 11/21 completed Not Available Not Available Not Available methylpredn isolone 4 mg tablets in a dose pack FOLLOW PACKAGE DIRECTION S 11/21 completed Not Available Not Available Not Available albuterol sulfate HFA 90 mcg/actuati on aerosol inhaler INHALE 2 PUFFS BY MOUTH EVERY 4 TO 6 HOURS NEEDED active Not Available Not Available No t Available ondansetron 4 mg disintegrat ing tablet DISSOLVE 1 TABLET ON THE TONGUE EVERY 8 HOURS NEEDED FOR NAUSEA OR VOMITING 11/21 completed Not Available Not Available Not Available fluoxetine 20 mg capsule TAKE 1 CAPSULE BY MOUTH DAILY 11/21 completed Not Available Not Available Not Available colestipol 1 gram tablet TAKE 1 TABLET BY MOUTH TWICE DAILY 12/10 completed Not Available Not Available Not Available dicyclomine 10 mg capsule Take 10 mg 4 times a day by oral route. 11/22 completed Not Available Not Available Not Available amoxicillin 875 mg-potassiu m clavulanate 125 mg tablet TAKE 1 TABLET BY MOUTH EVERY 12 HOURS FOR 7 DAYS 12/10 completed Not Available Not Available Not Available topiramate 50 mg tablet TAKE 1 TABLET BY MOUTH EVERY DAY 11/21 completed Not Available Not Available Not Available cholecalcif dylan (vitamin D3) 25 mcg (1,000 unit) tablet Take 25 ugs by oral route. 11/21 completed Not Available Not Available Not Available Vyvanse 50 mg capsule 11/21 completed Not Available Not Available Not Available Blisovi Fe 08/21 (28) 1 mg-20 mcg (21)/75 mg (7) tablet Take 1 tablet every day by oral route. 11/21 completed Not Available Not Available Not Available Mounjaro 2.5 mg/0.5 mL subcutaneou s pen injector Inject 2.5 mg by subcutane ous route. 11/21 completed Not Available Not Available Not Available Vitals Date Recorded Body height Body mass index (BMI) Body weight Systolic blood pressure Diastolic blood pressure Provider Name and Address Organization Details Last Updated DateTime 07/01/2023 157.48 cm 28.5 kg/m2 70627.41 g 144 mm[Hg] 79 mm[Hg] [facility] 3 12:23:24 Date Recorded Body height Body mass index (BMI) Body weight Systolic blood pressure Diastolic blood pressure Provider Name and Address Organization Details Last Updated DateTime 08/09/2023 157.48 cm 27.8 kg/m2 52703.04 g 123 mm[Hg] 79 mm[Hg] Alayna [facility] 4 14:25:51 Date Recorded Body height Body mass index (BMI) Body weight Systolic blood pressure Diastolic blood pressure Provider Name and Address Organization Details Last Updated DateTime 11/21/2024 157.48 cm 26.2 kg/m2 41693.71 g 138 mm[Hg] 75 mm[Hg] Enedelia Leger [facility] 5 14:16:30 Date Recorded Body height Body mass index (BMI) Body weight Systolic blood pressure Diastolic blood pressure Provider Name and Address Organization Details Last Updated DateTime 12/01/2024 157.48 cm 26.3 kg/m2 15402.3 g 125 mm[Hg] 82 mm[Hg] MARLENY Estrella [facility] 12:21:44 Social History None recorded. Functional Status None [...] Not available 2022 12:22:18 Maternal Grandfather Malignant neoplasm of lung [email or web address] Not available 2022 12:22:39 [...] [email or web address] Not available 2022 12:22:18 Father Malignant neoplasm of lung [email or web address] Not available 2022 12:22:39 Medical History Condition Response Other Y Anemia Y Asthma Y Gynecological History Statement/Question Response Abnormal Pap Y Flow Light Date of LMP 11/07/2024 Sexually Active? N STIs/STDs Y Age of first menstrual cycle 14 Date of Last Pap Smear Current Control Method Sterilizati on LMP Approximate Obstetrics History GPAL:G 3 P 2 0 1 2 Type Value Full Term 2 Induced 1 Living 2 Total 3 Immunizations Vaccine Type Date Status Note Provider Nam e and Address Organization Details Recorded Time influenza, unspecified formulation 08/28/[address] [facility] 11/21/2024 14:04:03 influenza, unspecified formulation 05/11/[address] [facility] 11/21/2024 14:04:03 influenza, unspecified formulation 05/16/[address] [facility] 11/21/2024 14:04:03 influenza, unspecified formulation 05/21/[address] [facility] 11/21/2024 14:04:03 influenza, unspecified formulation 06/07/2014 completed Enedelia Leger [facility] 11/21/2024 14:04:03 influenza, unspecified formulation 06/10/2012 completed Enedelia Leger [facility] 11/21/2024 14:04:03 influenza, unspecified formulation 06/15/[address] [facility] 11/21/2024 14:04:03 influenza, unspecified formulation 06/30/[address] [facility] 11/21/2024 14:04:03 influenza, unspecified formulation 07/15/[address] [facility] 11/21/2024 14:04:03 Tdap 11/20/[address] [facility] 11/21/2024 14:04:03 Tdap 12/01/2023 completed Enedelia Romeroton null, [facility] 11/21/2024 14:04:03 Novel Dujdtzddj-[id number] , nasal 08/29/2009 completed Enedelia Romeroton null, [facility] 11/21/2024 14:04:03 Hep B, adult 04/04/2008 completed Enedelia Africa null, [facility] 11/21/2024 14:04:03 Hep B, adult 07/05/2008 completed Enedelia Africa null, [facility] 11/21/2024 14:04:03 Hep A, adult 10/30/2004 completed Enedelia Romeroton null, [facility] 11/21/2024 14:04:03 Hep A, unspecified formulation 10/30/2004 completed Enedelia Romeroton null, [facility] 11/21/2024 14:04:03 Past Encounters Encounter ID Performer Location Encounter Start Date Encounter Closed Date Diagnosis/Indication Diagnosis SNOMED-CT Code Diagnosis ICD10 Code Diagnosis Note [id number] Chidi Betancourt MD [place] [address] [address] 12/10/2022 15:17:26 12/10/2022 16:55:41 Abnormal uterine bleeding 3097382068 9100 N93.9 Menorrhagia 395255640 N9 2.0 [id number] Chidi Betancourt MD [place] [address],[place] [address] 12/17/2022 11:57:35 12/17/2022 12:39:09 Menorrhagia 438129510 N92.0 N93.9 [id number] Chidi Betancourt MD [place] [address],[place] [address] 01/07/2023 10:55:07 01/07/2023 12:35:07 Mass of right breast 6034056354 5573095 N63.10 Abnormal u terine bleeding 4171691401 9100 N93.9 Lesion of endometrium 92 16923676 9101 N85.9 47-year-ol d female with endometria [...] More than 50% was counseling . Overweight 481003725 E66 .3 Preoperative state 62559 002 Z78.9 [id number] Chidi Betancourt MD [place] [address],[place] [address] 02/18/2023 11:40:04 02/18/2023 13:50:53 Screening procedure 74142344 Z13.9 Lesion of endometrium 92 28362638 9101 N85.9 hysterosco py was performed. She tolerated well. Endocervic al and endometria l curettage performed. [id number] Chidi Betancourt MD [place] [address],[place] [address] 02/25/2023 15:39:27 02/25/2023 17:11:08 Disorder of vulva 9536050 N90.9 we 7-year-old female who underwent endometria [...] ns and warning about side effects. Prediabetes 249806462 R7 3.03 [id number] Chidi Betancourt MD [place] [address],[place] [address] 03/25/2023 12:30:52 03/26/2023 12:47:18 Obesity 526251219 E66.9 47-year-ol d female presents for follow-up [...] ce. More than 50% was counseling . [id number] Chidi Betancourt MD [place] [address],[place] [address] 04/22/2023 12:46:49 04/22/2023 13:38:29 Obesity 300613808 E66.9 47-year-ol d female presents for follow-up [...] ce. More than 50% was counseling . [id number] Chidi Betancourt MD [place] [address],[place] [address] 07/01/2023 12:01:51 07/01/2023 17:28:26 Abnormal uterine bleeding 5689417366 9100 N93.9 Menorrhagia 173459374 N9 2.0 N93.9 This patient is a [...] we agreed to perform surgery. Preoperative state 85249 002 Z78.9 [id number] Chidi Betancourt MD [place] [address],[place] [address] 08/09/2023 13:55:09 08/10/2023 09:15:44 Screening procedure 27051789 Z13.9 Menorrhagia 687877135 N9 2.0 N93.9 endometria l ablation was performed. She tolerated the procedure well. To follow up in 1 week [id number] Chidi Betancourt MD [place] [address],[place] [address] 11/21/2024 14:00:47 11/21/2024 17:57:12 Pain in pelvis 34364770 R10.2 Discussed possible causes of pelvic pain.Recom mended pelvic ultrasound to r/o uterine or ovarian abnormalit ies.Recomm ended ultrasound follow-up with e taking ibuprofen 600 mg q 8hr PRN for pain.Patie nt is to contact office or go to nearest ED/Urgent care if fever >/= 100.1, pain, excessive bleeding, unusual drainage or swelling in area of concern; or experienci ng worsening sx's or new onset of concerning sx's. Understand ing verbalized . All questions answered to patient satisfacti on. [id number] Chidi Betancourt MD [place] [address],[place] [address] 11/22/2024 11:35:35 11/22/2024 12:16:06 Pain in pelvis 42962524 R10.2 [id number] Chidi Betancourt MD [place] [address] [address] 12/01/2024 12:08:09 12/06/2024 15:16:21 Pain in pelvis 39250729 R10.2 49-year-ol d female with pelvic pain. We have agreed to perform diagnostic laparoscop y. She understand s risks, benefits, and alternativ es. She has completed the informed consent process is ready to proceed. I spent over 30 minutes on the patient's care in total. Health Concerns Section Related Observation LastModified by Organization Detai ls LastModified Time None Recorded Concern Status LastModified by Organization Details LastModified Time None Recorded Advance Directives Directive None Recorded Payers Encounter Date Sequence Insurance Name Policy Number Policy [employer] Covered Member ID [place] Member ID Guarantor Name 07/01/2023 1 [employer] () Dru White [id number] Tori White 08/09/2023 1 [employer] - [employer] - [employer] () Dru White [id number] Tori White 11/21/2024 1 [employer] () Dru White [id number] Tori White 11/22/2024 1 [employer] () Dru White [id number] Tori White 12/01/2024 1 [employer] () Dru White [id number] Tori White Notes Date Note Type Note Provider Name and Address Organization Details Recorded Time 07/01/2023 text/html This patient is a 47-year-old [...] outcomes. Chidi Betancourt MD [address], [place], [address], [facility] 07/01/2023 17:18:00 08/09/2023 text/html 48-year-old fema le with menorrhagia presents for endometrial ablation. She understands the procedure. Was explained to her in detail. She understands the risks, benefits, and alternatives. Chidi Betancourt MD [address], [place], [address], [facility] 08/09/2023 17:53:22 11/21/2024 text/html 49 y/o female patient present with c/o sharp, stabbing right-sided lower abdominal pain that radiates to her back. Patient states that the onset of the pain was Wednesday and she felt a snap when the onset of pain occurred. Patient states that she was seen in the ER at [facility] on Wednesday. Patient states the abdominal ultrasound and CT were normal. Patient was given dilaudid in the ER and prescribed ibuprofen 800 mg PRN. Patient states that the pain is still present and will cause nausea and sweating when radiates. Patient reports having trouble sleeping due to the pain.Hx of salpingectomy 2014.Reports hx of IBS - alternates between constipation and diarrheaNeg urinary frequency, urgency, dysuriaNeg feverNeg Vag d/c, odor, irritation, itchingDeclines STI testing; has not been sexually active since being tested for STIs in August. GUERRERO SORTO NP [address], [place], [address], [facility] 11/21/2024 17:38:52 12/01/2024 text/html This patient is a 49-year-old female with pelvic pain. She has a diffuse pelvic pain, bilateral and midline that is intermittent. Last days. It is severely painful. Sharp pressure sensation. Nothing is pale ET tube and nothing is provocative. She has failed medical treatment. We talked about treatment options and ultimately agreed to perform diagnostic laparoscopy. The patient understands the procedure. The procedure was described to the patient in great detail. the patient also understands the risks. The risks were also explained in detail. She understands that injuries May occur during surgery. She understands these injuries can result in hospitalization, more surgery, and severe illness. She understands there is risk of hemorrhage and infection. Chidi Betancourt MD [address], [place], [address], [facility] 12/06/2024 15:16:20 OBGyn Episode Ob Episode Information Episode Created Date Number of Fetuses Patient Bloodtype Patient rh Status Prepregnancy Weight lbs Domestic Partner Domestic Partner Phone Father Name Tip Finisher Status 12/11/19 23 1 CLOSED Fetus Data [...] Domestic Partner Domestic Partner Phone Father Name Tip Finisher Status 12/11/19 23 1 CLOSED Fetus Data [...] Domestic Partner Domestic Partner Phone Father Name Tip Finisher Status 12/11/19 23 1 CLOSED Fetus Data [...]
--- OUTSIDE RECORDS SUMMARY | 2024-12-07 01:29 | XMS_ITS | Patient Health Record ---
Author Organization [facility] [employer] Address [address] [facility] [address] [place] [address] Care Team Providers Care Miter Grinder Operator Name Role Phone Sandra Thakur Unavailable [phone] Allergies Allergen (clinical drug ingredient) Drug/Non Drug [...] Oxazepam (BZO) neg 0 - 300 ng/ml 5-kafsbevkaq-6,3-blbrwyoc-1,3-diphenylpyrrolidine (MADHAV P) neg 0 - 300 ng/ml Methamphetamine (MET) neg 0 - 1000 ng/ml Methylenedioxymethamphetamine (MDMA) neg 0 - 500 ng/ml Morphine (MOP 300/YSR7246) neg 0 - 300 ng/ml Methadone (MTD) [...] 3 Generalized anxiety disorder (F41.1) [facility] Referring Provider First Name Sandra Referring Provider Last Name Blaze Referring Provider Speciality Nurse Dory isaacs Referred Provider [facility] Referred Provider Specialty Psychiatry General [...] September. 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 Problems Problem Type SNOMED Code ICD Code Onset Dates Problem Status W/U Status Risk Notes Problem Generalized anxiety disorder (85440351) Generalized anxiety disorder (F41.1) Active confirmed Problem 064302416 Adjustment disorder with mixed anxiety and depressed mood (F43.23) Active confirmed Problem Insomnia disorder related to another mental disorder (96194714) Insomnia related to another mental disorder (F51.05) Active confirmed Problem Panic disorder (453284817) Panic attacks (F41.0) Active confirmed Problem Moderate recurrent major depression (36680155) Moderate recurrent major depression (F33.1) Active confirmed Vital Signs Heart Rate 81 /min 03/01/2024 Height-cm 157.48 cm 03/01/2024 Blood pressure diastolic 71 mm Hg 03/01/2024 Weight-kg 63.05 kg 03/01/2024 Height 62 in 03/01/2024 Blood pressure systolic 108 mm Hg 03/01/2024 Weight 139 lbs 03/01/2024 BMI 25.42 kg/m2 03/01/2024 Encounters Encounter Location Date Provider Diagnosis [employer] [address] [facility] [address] [address] 03/01/2024 Sandra Thakur Adjustment disorder with mixed anxiety and depressed mood F43.23 ; Moderate recurrent major depression F33.1 ; Generalized anxiety disorder F41.1 ; Insomnia related to another mental disorder F51.05 ; Panic attacks F41.0 and Marijuana user F12.90 [employer] [address] [address] 03/23/2024 Sandra Thakur Adjustment disorder with mixed anxiety and depressed mood F43.23 ; Moderate recurrent major depression F33.1 ; Generalized anxiety disorder F41.1 ; Insomnia related to another mental disorder F51.05 ; Panic attacks F41.0 and Marijuana user F12.90 [employer] [address] [facility] [address] [facility] [address] [place] [address] 03/01/2024 Sandra Thakur [employer], [facility] [address] [place] [address] 03/09/2024 Sandra Flanaganakuadiamante [facility] [employer] [facility] [address] [place] [address] 03/23/2024 Sandra Blaze [facility] [employer] [facility] [address] [place] [address] 04/05/2024 Sandra Blaze [facility] [employer] [facility] [address] [facility] [address] [place] [address] 04/06/2024 Sandra Huddlestonaaron Assessments Encounter Date Diagnosis [...] Insured Coverage Start Date Coverage End Date [facility] [address] [place] [address] [id number] White, Tori Self - patient is the [...]
[2024-12-07] MEDS: LACTATED RINGERS 1,000 ML 30 ML IV CONT ×2 (10:45→13:15)
[2024-12-07] MEDS: ACETAMINOPHEN 500 MG TABLET 1000 MG PO (10:52)
[2024-12-07] MEDS: KETOROLAC 15 MG/ML VIAL (*BKC) IV PUSH (10:52)
--- NOTE | 2024-12-07 11:33 | WPDANESEPPF ---
Anes - Initial Pre Proc Eval Procedure: Operation Date: 12/07/24 12:00 Proposed Procedures p Diagnostic Laparoscopy - Chidi Betancourt MD Date/Time: 12/07/24 11:33 Surgeon: Chidi Betancourt MD Pre Op Diagnosis: Pelvic Pain Patient Data Age: 49 Gender: F Height: 1.57 m Weight: 63.6 kg Allergies Allergy/AdvReac Type Severity Reaction Status Date / Time escitalopram (From Lexapro) Allergy Mild Unknown Verified 12/05/24 13:51 metoclopramide (From Reglan) AdvReac Mild Unknown Verified 12/05/24 13:51 sertraline AdvReac Unknown INTENSIFIES Verified 12/05/24 13:51 ANXIETY Home Medications ?Medication ?Instructions ?Recorded ?Confirmed ?Type amitriptyline 25 mg tablet 25 mg PO HS 12/04/21 12/05/24 History albuterol sulfate 90 mcg/actuation 2 puff inhalation Q6H PRN 10/05/24 12/05/24 History aerosol inhaler shortness of breath or wheezing hydrocodone 5 mg-acetaminophen 325 1 tablet PO Q6H PRN pain 12/05/24 12/05/24 History mg tablet Patient hx anesthesia problems: none Family hx anesthesia problems: none Results Review: All pre-operative results and documents have been reviewed as part of the pre-operative evaluation. [facility] Past Medical History Medical History Obesity Dyspepsia Enterocolitis Belching Gas bloat syndrome Irritable bowel syndrome with diarrhea History of migraine Irritable bowel syndrome Surgical History Surgical History No pertinent past surgical history Social History Social History Years smoked: 23 Smoking status: Current every day smoker Tobacco type: cigarettes Alcohol intake: current Substance use type: marijuana Other substance usage details: Every now and then for sleep Living arrangements: with family Spiritual care concerns: No Anes - Eval Final PreProcedure Day of Procedure 12/07/24 11:33 Patient weight: overweight Lungs: normal air movement Airway: Mallampati scale class II Neurological: alert and oriented Last oral intake: >/= 8 hours ASA classification: II Emergent: no Anesthetic plan: proceed Anesthesia type and monitoring: general ETT and standard monitoring Results Review: All pre-operative results and documents have been reviewed as part of the pre-operative evaluation. Pt smokes daily, 1/2 ppd, vapes too. Informed Consent: The patient's anesthetic plan and its attendant risks and benefits were discussed with the patient/family/POA. Questions were solicited and answers provided to the satisfaction of the patient/family/POA.
--- NOTE | 2024-12-07 12:10 | WPDHPUPDATE1 ---
History and Physical Update Update Date/Time: 12/07/24 12:10 History and Physical has been reviewed, including an updated exam of the patient. There are NO changes in the patient's condition. Risks, benefits, and alternatives have been discussed and questions answered. Patient agrees to proceed with procedure.
--- NOTE | 2024-12-07 13:14 | W.PM.PROC2 ---
Procedure Note - Detailed Date of Procedure 12/07/24 Pre-op Diagnosis Pelvic Pain Post-op Diagnosis Same (Pelvic adhesions) Procedure Performed Diagnostic laparoscopy, adhesiolysis-brief Surgeon Chidi Betancourt MD Anesthesia General Indications Pelvic pain Findings Marked tension on the right round ligament at the site of the insertion on the abdominal wall. Status post salpingectomy. Otherwise normal. Description of Procedure The patient was taken to the operating room. She was prepped and draped in the dorsal lithotomy position after induction general anesthesia. A 5 mm incision was made with a scalpel on the abdominal skin in the left upper quadrant of the abdomen. A 5 mm trocar was inserted into the intra-abdominal cavity under direct visualization the scope. In the same fashion a 5 mm left lower quadrant trocar was inserted and a 5 mm infraumbilical trocar was inserted. Adhesions and round ligament were transected at the insertion of the round ligament in a right abdominal wall. This was done with sharp and blunt dissection. It was repeated on the left side. The pelvis was irrigated. The pneumoperitoneum was reduced. The trocars were removed. Skin was closed with subcuticular 4 micro. The patient's incisions were covered with Dermabond. She was taken recovery room in stable condition. Sponge lap and needle counts were correct x2. Estimated Blood Loss 5 Pathology None sent Complications No immediate complications Condition Stable Disposition Same day
[2024-12-07] MEDS: fentaNYL CITRATE INJ (*CRX) 100 MCG/2 ML VIAL 25 MCG IV PUSH ×8 (13:43→15:33)
[2024-12-07] MEDS: ONDANSETRON INJ 4 MG/2 ML VIAL IV PUSH (14:11)
[2024-12-07] MEDS: diphenhydrAMINE HCl INJ 50 MG/ML VIAL 12.5 MG IV PUSH ×2 (14:34→14:57)
[2024-12-07] MEDS: SCOPOLAMINE 1 MG PATCH 1 PATCH TRANSDERM (15:15)
[2024-12-07] MEDS: oxyCODONE HCL (*CRX) 5 MG TAB IR PO (16:18)
== END 2024-12-07 17:55 | disposition home or self-care (01) ==
PROVIDERS: PCP Student in an Organized Health Care Education/Training Program; Visit Provider Obstetrics & Gynecology
PROC: (CPT 49320; principal; 2024-12-07 12:00)
DX: N73.6 Female pelvic peritoneal adhesions (postinfective) (principal); F17.210 Nicotine dependence, cigarettes, uncomplicated; F12.90 Cannabis use, unspecified, uncomplicated
CPT/HCPCS: 58660; A9270; J1100; J1200; J1885; J2003; J2250; J2405; J2704; J3010; J7120; Q9968

== ENCOUNTER 2025-01-04 12:40 | Emergency (ER) | payer OTHER, SELFPAY ==
[2025-01-04 12:42] VITALS: BP 122/52; PULSE 72; RESP 16; TEMP 36.4; O2SAT 100
--- NOTE | 2025-01-04 12:44 | ECG_ITS ---
Test Date: 2025-01-04 12:47:20 Measurements Intervals [place] Rate: 69 P: 15 MN: 149 QRS: 80 QRSD: 74 T: 57 QT: 396 QTc: 425 Interpretive Statements SINUS RHYTHM NORMAL ECG No previous ECG available for comparison Electronically Signed On 01-04-2025 13:17:00 CDT by Reuben Panda D.O.
--- OUTSIDE RECORDS SUMMARY | 2025-01-04 13:09 | XMS_ITS | Patient Health Record ---
Author Organization [facility] [employer] Address [address] [facility] [address] [place] [address] Care Team Providers Care Car Dumper Operator Name Role Phone Sandra Thakur Unavailable [phone] Allergies Allergen (clinical drug ingredient) Drug/Non Drug [...] Oxazepam (BZO) neg 0 - 300 ng/ml 1-dhxjddqeuv-7,0-lunijlae-2,3-diphenylpyrrolidine (MADHAV P) neg 0 - 300 ng/ml Methamphetamine (MET) neg 0 - 1000 ng/ml Methylenedioxymethamphetamine (MDMA) neg 0 - 500 ng/ml Morphine (MOP 300/EFV6827) neg 0 - 300 ng/ml Methadone (MTD) [...] 3 Generalized anxiety disorder (F41.1) [facility] Referring Provider First Name Sandra Referring Provider Last Name Blaze Referring Provider Speciality Nurse Dory isaacs Referred Provider [facility] Referred Provider Specialty Psychiatry General Notes Sandra [...] September. 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 Problems Problem Type SNOMED Code ICD Code Onset Dates Problem Status W/U Status Risk Notes Problem Generalized anxiety disorder (87863237) Generalized anxiety disorder (F41.1) Active confirmed Problem [id number] Adjustment disorder with mixed anxiety and depressed mood (F43.23) Active confirmed Problem Insomnia disorder related to another mental disorder (94602450) Insomnia related to another mental disorder (F51.05) Active confirmed Problem Panic disorder (194136673) Panic attacks (F41.0) Active confirmed Problem Moderate recurrent major depression (48944739) Moderate recurrent major depression (F33.1) Active confirmed Vital Signs Heart Rate 81 /min 03/01/2024 Height-cm 157.48 cm 03/01/2024 Blood pressure diastolic 71 mm Hg 03/01/2024 Weight-kg 63.05 kg 03/01/2024 Height 62 in 03/01/2024 Blood pressure systolic 108 mm Hg 03/01/2024 Weight 139 lbs 03/01/2024 BMI 25.42 kg/m2 03/01/2024 Encounters Encounter Location Date Provider Diagnosis [employer] [address] [facility] [address] [address] 03/01/2024 Sandra Thakur Adjustment disorder with mixed anxiety and depressed mood F43.23 ; Moderate recurrent major depression F33.1 ; Generalized anxiety disorder F41.1 ; Insomnia related to another mental disorder F51.05 ; Panic attacks F41.0 and Marijuana user F12.90 [employer] [address] [address] 03/23/2024 Sandra Thakur Adjustment disorder with mixed anxiety and depressed mood F43.23 ; Moderate recurrent major depression F33.1 ; Generalized anxiety disorder F41.1 ; Insomnia related to another mental disorder F51.05 ; Panic attacks F41.0 and Marijuana user F12.90 [employer] [address] [facility] [address] [facility] [address] [place] [address] 03/01/2024 Sandra Thakur [employer], [facility] [address] [place] [address] 03/09/2024 Sandra Flanaganakuadiamante [facility] [address] [place] [address] 03/23/2024 Sandra Blaze [facility] [address] [place] [address] 04/05/2024 Sandra Blaze [facility] [address] [facility] [address] [place] [address] 04/06/2024 Sandra Huddlestonaaron Assessments Encounter Date Diagnosis [...] Start Date Coverage End Date [facility] [address] [place] [address] [id number] White, Tori Self - patient is the [...]
--- OUTSIDE RECORDS SUMMARY | 2025-01-04 13:09 | XMS_ITS | Continuity of Care Document ---
Author Name [facility] Organization [facility] Care Team Providers Care Supervisor [employer] Name Role Phone [facility] Unavailable Unavailable Problems [...] pain in the right hip Inactive Condition [facility] visit for: exam 2nd trimester (at ____weeks) Inactive Condition DoD diarrhea Inactive Condition DoD SECONDARY INSOMNIA Inactive Condition Do D Inquiry And Counseling: Contraceptive Practices Active Condition [facility] ELDERLY MULTIGRAVIDA (35 or older at delivery) Inactive Condition DoD UPPER RESPIRATORY INFECTION Inactive Condition DoD BACKACHE Active Condition DoD COMMON COLD Inactive Condition DoD CONSTIPATION Inactive Condition [facility] visit for: exam high-risk elderly multigravida Inactive Condition DoD constipation Inactive Condition DoD nausea Inactive Condition DoD Urine Test Inactive Condition DoD RHINOSINUSITIS Inactive Condition [facility] Outpatient Physician Consultation Inactive Condition DoD CONDITIONS INFLUENCING HEALTH STATUS Active Condition DoD CERVICALGIA Active Condition [facility] visit for: screening exam for malignant neoplasm cervix Inactive Condition DoD CYSTITIS ACUTE Inactive Condition DoD FEMALE PELVIC PAIN Active Condition DoD ENDOMETRIOSIS Active Condition DoD nonmenstrual bleeding Active Condition DoD Test Inactive Condition DoD ACUTE BRONCHITIS Inactive Condition [facility] visit for: issue repeat prescription [...] NORMAL CHECKUP - THIRD TRIMESTER Inactive Condition [facility] visit for: exam high-risk Inactive Condition DoD lower back pain Inactive Condition DoD ANXIETY DISORDER NOS Inactive Condition DoD Vaccines Prophylactic Need Against Influenza Inactive Condition DoD current smoker Active Condition DoD Oral Glucose Tolerance Test 2-Hour Value Between 140 - 200 Inactive Condition [facility] NORMAL CHECKUP - SECOND TRIMESTER Inactive Condition DoD NORMAL Inactive Condition DoD PSYCHIATRIC DIAGNOSIS OR CONDITION DEFERRED ON AXIS I Inactive Condition DoD DEPRESSION Inactive Condition DoD Inactive Condition DoD HYPEREMESIS GRAVIDARUM Inactive Condition DoD Patient Counseling: Inactive Condition D Supervision Of Normal Inactive Condition [facility] visit for: exam 1st trimester (at ____weeks) Inactive Condition DoD nausea with vomiting Inactive Condition [facility] IRRITABLE BOWEL SYNDROME Active Condition [facility] visit for: administrative purpose Inactive Condition [facility] smoking cigarettes Active Condition [facility] DYSMENORRHEA Active Condition DoD DYSFUNCTIONAL UTERINE BLEEDING Active Condition DoD feared medical condition not demonstrated Inactive Condition [facility] visit for: screening exam malignant neoplasm breast Inactive Condition DoD ROUTINE GYNECOLOGICAL EXAM WITH CERVICAL PAP SMEAR Inactive Condition DoD VAGINAL DISCHARGE Inactive Condition DoD DYSPAREUNIA Active Condition DoD pain during urination (dysuria) Active Condition DoD DERMATOPHYTOSIS TINEA PEDIS Inactive Condition DoD DERMATOPHYTOSIS TINEA MANUUM Active Condition [facility] visit for: issue repeat prescription Inactive Condition [facility] Patient Education - Medication Inactive Condition DoD Need For Vaccination Hepatitis B Inactive Condition DoD anxiety Inactive Condition Pt with anxiety disorder that has failed every SSRI and Wellbutrin and per patient. Pt does not tolerate klonopin. Will give trial of low dose Xanax. Follow up as needed. [facility] NORMAL PRE-EMPLOYMENT SCREENING EXAMINATION Inactive [...] LUPIN PHARMACEU, 8.5 g CANISTER Cancele d [id number] : 2023 0 Pharmac y Data Transac tion Service Facilit y AMITRIPTYLI NE HCL (amitriptyl ine HCl), 25 MG, TABLET, ORAL, UNICHEM PHARMAC, 1000 ea. BOTTLE Active [id number] 2023 90 Pharmac y Data Transac tion Service Facilit y AMITRIPTYLI NE HCL (amitriptyl ine HCl), 25 MG, TABLET, ORAL, UNICHEM PHARMAC, 1000 ea. BOTTLE Active [id number] 2023 90 Pharmac y Data Transac tion Service Facilit y AMITRIPTYLI NE HCL (amitriptyl ine HCl), 25 MG, TABLET, ORAL, UNICHEM PHARMAC, 1000 ea. BOTTLE Active [id number] 2023 90 Pharmac y Data Transac tion Service Facilit y CYCLOBENZAP RINE HCL (cyclobenza mitchell HCl), 10 MG, TABLET, ORAL, UNICHEM PHARMAC, 1000 ea. BOTTLE Cancele d [id number] : 2023 0 Pharmac y Data Transac tion Service Facilit y CYCLOBENZAP RINE HCL (cyclobenza mitchell HCl), 10 MG, TABLET, ORAL, UNICHEM PHARMAC, 1000 ea. BOTTLE Active [id number] 2023 14 Pharmac y Data Transac tion Service Facilit y DICYCLOMINE HCL (DICYCLOMIN E HCL), 10MG, CAPSULE, ORAL, TORREZ LABS, 100 ea. BOTTLE Cancele d [id number] : 2023 0 Pharmac y Data Transac tion Service Facilit y DICYCLOMINE HCL (DICYCLOMIN E HCL), 10MG, CAPSULE, ORAL, TORREZ LABS, 100 ea. BOTTLE Active [id number] 2023 240 Pharmac y Data Transac tion Service Facilit y FLUOXETINE HCL (FLUOXETINE HCL), 20MG, CAPSULE, ORAL, PL[employer] INC, 1000 ea. BOTTLE Active [id number] 2023 90 Pharmac y Data Transac tion Service Facilit y IBUPROFEN (ibuprofen) , 800 MG, TABLET, ORAL, AUROBINDO PHARM, 500 ea. BOTTLE Cancele d [id number] : 2023 0 Pharmac y Data Transac tion Service Facilit y IBUPROFEN (ibuprofen) , 800 MG, TABLET, ORAL, AUROBINDO PHARM, 500 ea. BOTTLE Active [id number] 2023 20 Pharmac y Data Transac tion Service Facilit y PANTOPRAZOL E SODIUM (PANTOPRAZO LE SODIUM), 20 MG, TABLET DR, ORAL, MYLAN, 90 ea. BOTTLE Cancele d [id number] : 2023 0 Pharmac y Data Transac tion Service Facilit y PANTOPRAZOL E SODIUM (PANTOPRAZO LE SODIUM), 20 MG, TABLET DR, ORAL, MYLAN, 90 ea. BOTTLE Active [id number] 2023 30 Pharmac y Data Transac tion Service Facilit y phentermine 15 mg capsule See Instruct ions, # 30 EA, 0 total refill(s ), Hard Stop Complet ed 09/21/2023 3 2023 30.0 Ambulat ory Pharmac y SUMATRIPTAN SUCCINATE (sumatripta n succinate), 100 MG, TABLET, ORAL, 'S LAB, 27 ea. BLIST PACK Active [id number] 2023 9 Pharmac y Data Transac tion Service Facilit y SUMATRIPTAN SUCCINATE (sumatripta n succinate), 100 MG, TABLET, ORAL, 'S LAB, 27 ea. BLIST PACK Cancele d [id number] : 2023 0 Pharmac y Data Transac tion Service Facilit y SUMATRIPTAN SUCCINATE (sumatripta n succinate), 100 MG, TABLET, ORAL, 'S LAB, 27 ea. BLIST PACK Active [id number] 2023 9 Pharmac y Data Transac tion Service Facilit y SUMATRIPTAN SUCCINATE (sumatripta n succinate), 100 MG, TABLET, ORAL, 'S LAB, 27 ea. BLIST PACK Active [id number] 2023 9 Pharmac y Data Transac tion Service Facilit y topiramate [Exelan] 50 mg tablet See Instruct ions, # 90 EA, 0 total refill(s ), Hard Stop Complet ed 03/24/2024 3 2023 90.0 Ambulat ory Pharmac y TRAZODONE HCL (trazodone HCl), 50 MG, TABLET, ORAL, AUROBINDO PHARM, 100 ea. BOTTLE Cancele d [id number] : 2023 0 Pharmac y Data Transac tion Service Facilit y TRAZODONE HCL (trazodone HCl), 50 MG, TABLET, ORAL, AUROBINDO PHARM, 100 ea. BOTTLE Cancele d [id number] : 2023 0 Pharmac y Data Transac tion Service Facilit y TRAZODONE HCL (trazodone HCl), 50 MG, TABLET, ORAL, AUROBINDO PHARM, 100 ea. BOTTLE Active [id number] 2023 30 Pharmac y Data Transac tion Service Facilit y TRAZODONE HCL (trazodone HCl), 50 MG, TABLET, ORAL, AUROBINDO PHARM, 100 ea. BOTTLE Active [id number] 2023 30 Pharmac y Data Transac tion Service Facilit y TRAZODONE HCL (trazodone HCl), 50 MG, TABLET, ORAL, AUROBINDO PHARM, 100 ea. BOTTLE Active [id number] 2023 30 Pharmac y Data Transac [...] } Drug allergy (disorder) Rash active [address] [place] [address] ([place]) OTHER {Cla } Propensity to adverse reactions to drug Rash Active 3 LATEX Unknown Organiza tion PHENERGAN (PROMETHAZIN E HCL) Drug allergy (disorder) Unknown active [address] [place] [address]) promethazine Propensity to adverse reactions to drug Unknown Active 4 Unknown Organiza tion PROZAC (FLUOXETINE HCL) Drug allergy (disorder) Diarrhea active [address] [place] [address]) REGLAN (METOCLOPRAM JENNY HCL) Drug allergy (disorder) Depression active [address] [place] [address]) sertraline Propensity to adverse reactions to drug Depression Active 4 Unknown Organiza tion ZOLOFT (SERTRALINE HCL) Drug allergy (disorder) Depression active [address] [place] [address]) Immunizations Combined list of available immunizations from the Department of Defense and Veterans Affairs facilities. Immunization Series Date Given Administered By Site Reaction Lot Number CVX Code Drug Exhibit Designer Status Comments Source COVID-19, mRNA, LNP-S, PF, 100 mcg or 50 mcg dose 2021 Adi S[facility]NCHEZ [facility] (MOD) Not Given COVID-19, mRNA, LNP-S, PF, 100 mcg or 50 mcg dose [facility] influenza, injectable, quadrivalent- pf 2017 zzLef t Arm [id number] [employer] complet ed influenza , injectabl e, quadrival ent-pf 05/11/18 Given Ambulat ory Pharmac y Influenza, injectable, quadrivalent, preservative free 1 2017 Unknown, Provider [id number] 150 [employer] (SEQ) complet ed Influenza , injectabl e, quadrival ent, preservat rachel free DoD influenza, seasonal, injectable-pf 2015 zzLef t Arm [id number] 140 [employer] complet ed influenza , seasonal, injectabl e-pf 07/15/16 Given Ambulat ory Pharmac y Influenza, seasonal, injectable, preservative free 1 2015 Unknown, Provider [id number] 140 [employer] (SEQ) complet ed Influenza , seasonal, injectabl e, preservat rachel free DoD influenza, injectable, quadrivalent 2013 zzLef t Arm [id number] 158 [employer] complet ed influenza , injectabl e, quadrival ent 06/07/14 Given Ambulat ory Pharmac y influenza, injectable, quadrivalent, contains preservative 1 2013 Unknown, Provider [id number] 158 (IDB) complet ed influenza , injectabl e, quadrival ent, contains preservat rachel DoD tetanus, diphtheria, acellular pertu is [facility] [id number] 115 [facility] complet ed tetanus, diphtheri a, acellular pertussis 11/20/13 Given Ambulat ory Pharmac y tetanus toxoid, reduced diphtheria toxoid, and acellular pertu is vaccine, adsorbed 1 2013 Unknown, Provider [id number] 115 [facility] ([facility]) complet ed tetanus toxoid, reduced diphtheri a toxoid, and acellular pertussis vaccine, adsorbed DoD influenza, seasonal, injectable-pf 2013 zzLef t Arm [id number] 140 sanofi pasteur complet ed influenza , seasonal, injectabl e-pf 08/28/13 Given Ambulat ory Pharmac y Influenza, seasonal, injectable, preservative free 5 2013 Unknown, Provider [id number] 140 Sanofi Pasteur (PMC) complet ed Influenza , seasonal, injectabl e, preservat rachel free DoD influenza, seasonal, injectable-pf 2011 [facility] [id number] 140 sanofi pasteur complet ed influenza , seasonal, injectabl e-pf 06/10/12 Given Ambulat ory Pharmac y Influenza, seasonal, injectable, preservative free 4 2011 Unknown, Provider [id number] 140 Sanofi Pasteur (PMC) complet ed Influenza , seasonal, injectabl e, preservat rachel free DoD influenza, seasonal, injectable-pf 2010 zzLef t Arm [id number] 140 sanofi pasteur complet ed influenza , seasonal, injectabl e-pf 06/15/11 Given Ambulat ory Pharmac y Influenza, seasonal, injectable, preservative free 3 2010 Unknown, Provider [id number] 140 Sanofi Pasteur (PMC) complet ed Influenza , seasonal, injectabl e, preservat rachel free DoD influenza virus vaccine,split 2009 zzRig ht Arm [id number] 15 sanofi pasteur complet ed influenza virus vaccine,s plit 06/30/10 Given Ambulat ory Pharmac y influenza virus vaccine, split virus (incl. purified surface antigen)-reti red CODE 1 2009 Unknown, Provider [id number] 15 Sanofi Pasteur (PMC) complet ed influenza virus vaccine, split virus (incl. purified surface antigen)- retired CODE DoD Novel Influenza-H1N 1-09,live virus,nasal 2009 [id number] [employer] comple t ed Novel Influenza -M1C0-52, live virus,rafal al 08/29/09 Given Ambulat ory Pharmac y Novel Influenza-H1N 1-09, live virus for nasal administratio n 1 2009 Unknown, Provider [id number] 125 [employer] (MED) complet ed Novel Influenza -H8Z1-75, live virus for nasal administr ation DoD influenza virus vaccine,split 2008 zzLef t Arm [id number] 15 sanofi pasteur complet ed influenza virus vaccine,s plit 05/16/09 Given Ambulat ory Pharmac y influenza virus vaccine, split virus (incl. purified surface antigen)-reti red CODE 1 2008 Unknown, Provider [id number] 15 Sanofi Pasteur (PMC) complet ed [...] to the last 18 months, not all [place] inpatient encounters are included; 2) Encounters from the Department of Defense facilities going backup to 280 months. Location Location Details Encounter Type Encounter Number Reason For Visit Attending Provider ADM Date DC Date Status Disposition Source [address] [place] [address] [place] [facility] [facility]Sco tt [facility] Tm Blue) OUTPATIENT [id number] [phone] physica l to go to school for medical assista nt ALDO DAY 04/04 Released w/o Limitations [address] [place] [address] [place] KELSEYB [facility]S cott [facility] Tm Blue) [address] [place] [address] [place] B [facility])(Sco tt [facility] Tm Blue) TELE CONSULT [id number] Medicat ion Request HARDY GLOVER 05/[address] [place] [address] [place] B [facility]S cott [facility] Tm Blue) [address] [place] [address] [place] LAUREB [facility])(Sco tt [facility] Tm Blue) OUTPATIENT [id number] rash on hand... .[id number] 64 ADELINE GU 07/05 Released w/o Limitations [address] [place] [address] [place] LAUREB [facility]S cott [facility] Tm Blue) [address] [place] [address] [place] LAUREB [facility]Sco tt [facility] Tm Blue) TELE CONSULT [id number] Medicat ion Request ALDO DAY 08/[address] [place] [address] [place] [facility]S cott [facility] Tm Blue) [address] [place] [address] [place] LAUREB [facility]Sco tt [facility] Tm Blue) OUTPATIENT [id number] annual pap.... [id number] WANDA FELICIANO 09/18 Released w/o Limitations [address] [place] [address] [place] [employer] [facility]S cott [facility] Tm Blue) [address] [place] [address] [place] B [facility])(Cma ecology) OUTPATIENT [id number] feared medical conditi on not demonst rated MARGARETTE TABARES 10/03 Released w/o Limitations [address] [place] [address] [employer] [facility]G ynecolo gy) [address] [place] [address] [employer] [facility]Ob/ Cma) TELE CONSULT [id number] us and lab results MARGARETTE TABARES 10/[address] [place] [address] [employer] ([place])(O b/Cma) [employer] ([place]Cma ecology) OUTPATIENT [id number] preg test CHETNA BARKER 11/02 Released w/o Limitations [employer] ([place]G ynecolo gy) [employer] ([place]Sco tt [facility] Tm Blue) TELE CONSULT [id number] Medicat ion Request ALDO DAY 11/05 [employer] ([place]S cott [facility] Tm Blue) [employer] ([place]Sco tt [facility] Fam Res Tm Green) OUTPATIENT [id number] medicat ion/OB questio AFSHIN Martin 11/09 Released w/o Limitations [employer] ([place]S cott [facility] Fam Res Tm Green) [employer] ([place]Sco tt [facility] Tm Blue) OUTPATIENT [id number] initiat e OB care ANNE HURTADO 11/12 Released w/o Limitations [employer] ([place]S cott OF [facility] Tm Blue) [employer] ([place]Sco tt [facility] Tm Blue) OUTPATIENT [id number] early pregnan cy; hyperem ADELINE Vidal 11/19 Released w/o Limitations [employer] ([place]S cott [facility] Tm Blue) [employer] ([place]Ob/ Cma) OUTPATIENT [id number] transfe r in from [facility] [id number] ZACK TOWNSEND 12/17 Released w/o Limitations [employer] ([place]O b/Cma) [employer] ([place]Ob/ Cma) OUTPATIENT [id number] new ob - edc jul 10 JE LUNA 01/02 Released w/o Limitations [employer] ([place]O b/Cma) [employer] ([place]Ob/ Cma) TELE CONSULT [id number] JE Hoyos 01/03 [employer] ([place]O b/Cma) [employer] ([place]Cma ecology) TELE CONSULT [id number] Needs note from doctor TRUNG HALEY 01/16 [facility] [employer] ([place]G ynecolo gy) [employer] ([place]Ob/ Cma) OUTPATIENT [id number] 16 wks edc jul 10 JE LUNA 01/23 Released w/o Limitations [employer] ([place]O b/Cma) [employer] ([place]Ob/ Cma) TELE CONSULT [id number] request ing letter TRUNG HALEY 01/23 [facility] [employer] [place]O b/Cma) [facility] [employer] ([place]Ob/ Cma) TELE CONSULT [id number] ua symptom s TRUNG HALEY 02/05 [facility] [employer] [place]O b/Cma) [facility] [employer] ([place]Ob/ Cma) OUTPATIENT [id number] NIC - EDC jul 10 ZACK TOWNSEND 02/20 Released w/o Limitations [facility] [employer] [place]O b/Cma) [facility] [employer] ([place]Ob/ Cma) TELE CONSULT [id number] JE LUNA 02/28 [facility] [employer] [place]O b/Cma) [facility] [employer] ([place]Ob/ Cma) TELE CONSULT [id number] OB w/ contrac mary N/KELSIE FELICIANO 03/11 [employer] ([place])(O b/Cma) [employer] ([place]Ob/ Cma) OUTPATIENT [id number] nic - edc jul 10 MARGARETTE TABARES 03/25 Released w/o Limitations [employer] ([place])(O b/Cma) [employer] ([place])(Ob/ Cma) TELE CONSULT [id number] request for med refill CESARIO JEFFERY Aman 04/09 [employer] ([place]O b/Cma) [employer] ([place]Ob/ Cma) TELE CONSULT [id number] lab result MARGARETTE TABARES 04/12 [facility] [employer] ([place]O b/Cma) [employer] ([place]Ob/ Cma) OUTPATIENT [id number] nic - edc jul 10 JOSE DCESARIO MORRISON Aman 04/16 Released with Work/Duty Limitations [employer] ([place])(O b/Cma) [facility] [employer] ([place]Ob/ Cma) TELE CONSULT [id number] test results VERONICA JOHNS 04/30 [facility] [employer] ([place])(O b/Cma) [facility] [employer] ([place]Ob/ Cma) OUTPATIENT [id number] nic - edc jul 10 - discuss deliver y options BRIE CRUZ 05/16 Released w/o Limitations [employer] ([place])(O b/Cma) [employer] ([place]Sco tt [facility] Fam Res Tm Green) OUTPATIENT [id number] flu shot for high risk pt AL TALBOT Delgado 05/16 Released w/o Limitations [facility] [employer] ([place]S cott [facility] Fam Res Tm Green) [facility] [employer] ([place]Ob/ Cma) TELE CONSULT [id number] flu symptom s TRUNG HALEY 05/28 [facility] [employer] ([place])(O b/Cma) [facility] [employer] ([place]Ob/ Cma) OUTPATIENT [id number] NIC - EDC JUL 10 JE ARIZA 06/03 Released w/o Limitations [employer] ([place])(O b/Cma) [employer] ([place])(Ob/ Cma) OUTPATIENT [id number] NIC - EDC JUL 10 BRIE CRUZ 06/11 Released w/o Limitations [employer] ([place])(O b/Cma) [address] [place] [address] [place] [employer] ([place])(Ob/ Cma) OUTPATIENT [id number] nic - edc jul 10 JE ARIZA 06/18 Released w/o Limitations [address] [place] [address] [place] [employer] ([place])(O b/Cma) [address] [place] [address] [place] Reynaldo [facility])(Lion e Managemen t) TELE CONSULT [id number] [facility]-Hosp ital Admissi on URBAN STYLES 06/[address] [place] [address] [place] S[place] [facility]C ase Managem ent) [address] [place] [address] [place] [facility]Ob/ Cma) TELE CONSULT [id number] burning during urinati on DORI DAVENPORT L 07/[address] [place] [address] [place] [facility] [facility])(O b/Cma) [address] [place] [address] [place] [facility] [facility]Sco tt [facility] Tm Blue) OUTPATIENT [id number] lactati on consult from WANDA Shine 07/05 Released w/o Limitations [address] [place] [address] [place] [facility]S cott [facility] Tm Blue) [address] [place] [address] [place] [facility]Ob/ Cma) OUTPATIENT [id number] 6 wk pp - deliver ed Jun 10 BRIE CRUZ 08/05 Released w/o Limitations [address] [place] [address] [place] [facility] [facility])(O b/Cma) [address] [place] [address] [place] [facility] [facility]Sco tt [facility] Tm Blue) TELE CONSULT [id number] ALDO Singh 08/[address] [place] [address] [place] [employer] ([place])(S cott [facility] Tm Blue) [address] [place] [address] [place] [facility])(Cma ecology) OUTPATIENT [id number] mirena inserti on BRIE CRUZ 08/20 Released w/o Limitations [address] [place] [address] [place] [employer] ([place])(G ynecolo gy) [address] [place] [address] [place] [facility] [facility]Sco tt [facility] Tm Blue) OUTPATIENT [id number] dry hands and feet cell# [phone] LEXY BRICENO 08/29 Released w/o Limitations [address] [place] [address] [place] KELSEYB ([place])(S cott [facility] Tm Blue) [address] [place] [address] [place] [employer] ([place])(Ob/ Cma) TELE CONSULT [id number] some concern s with JE GALE 09/[address] [place] [address] [place] [employer] ([place])(O b/Cma) [address] [place] [address] [place] [employer]SE[employer] ([place])(Sco tt [facility] Tm Blue) OUTPATIENT [id number] fu left hand [phone] VASU CARPENTER 10/18 Released w/o Limitations [address] [place] [address] [place] KELSEYB ([place]S cott [facility] Tm Blue) [address] [place] [address] [place] KELSEYB [facility])(Hubert matology) OUTPATIENT [id number] DYSHIDR MONI DILL 11/08 Released w/o Limitations [address] [place] [address] [place] KELSEYB ([place])(D ermatol ogy) [address] [place] [address] [place] [facility])(Sco tt [facility] Tm Blue) TELE CONSULT [id number] refill narc VASU CARPENTER 12/[address] [place] [address] [place] KELSE[facility])(S cott [facility] Tm Blue) [address] [place] [address] [place] KELSE[facility] [facility])(Ob/ Cma) TELE CONSULT [id number] appt VERONICA JOHNS 12/[address] [place] [address] [place] SAPP ([place])(O b/Cma) [address] [place] [address] [place] K[facility] [facility])(Opt ometry) OUTPATIENT [id number] eye exam... [id number] LUZ MUHAMMAD 12/31 Released w/o Limitations [address] [place] [address] [place] ([place])(O ptometr y) [address] [place] [address] [place] ([place])(Cma ecology) OUTPATIENT [id number] iud removal BRIE CRUZ 01/14 Released w/o Limitations [address] [place] [address] [place] ([place])(G ynecolo gy) [address] [place] [address] [place] ([place])(Sco tt [facility] Tm Blue) OUTPATIENT [id number] discuss quittin g smoking /ear acupunt ALDO Swenson 01/24 Released w/o Limitations [address] [place] [address] [place] ([place])(S cott [facility] Tm Blue) [address] [place] [address] [place] ([place])(Sco tt [facility] Tm Blue) TELE CONSULT [id number] Medical Inquiry ALDO DAY 03/[address] [place] [address] [place] LAUREReynaldo [facility])(S [facility] FAM[facility] Tm Blue) [address] [place] [address] Irsael KELSEYB [facility])(Sco tt [facility] Tm Blue) OUTPATIENT [id number] f/u ibs/gal lbladde r ALDO DAY 04/15 Released w/o Limitations [address] [place] [address] [place] LAUREB [facility])(S [facility] Tm Blue) [address] [place] [address] [place] [facility])(Cma ecology) OUTPATIENT [id number] bp check and review bcp - [id number] BRIE CRUZ 04/17 Released w/o Limitations [address] [place] [address] [place] [facility])(G ynecolo gy) [address] [place] [address] [place] B [facility])(Fam jesus Med Tm B Non-AD BCC) OUTPATIENT [id number] Congest ion [phone] MONI BOSS 08/05 Released w/o Limitations [address] [place] [address] [place] [facility])(F amily Med Tm B Non-AD BCC) [address] [place] [address] [place] [facility])(Cma ecology) OUTPATIENT [id number] pregnan cy KELSIE Tobin 08/05 Released w/o Limitations [address] [place] [address] [facility]G ynecolo gy) [address] [place] [address] [facility]War rior Op Med Cln Tm A Ad) TELE CONSULT [id number] Patient is request ing a refill on med Amitrip tyline. SIDDHARTH CURTIS 08/[address] [place] [address] [place] [facility]W arrior Op Med Cln Tm A Ad) [address] [place] [address] [place] B [facility])(Fam jesus Med Tm B Non-AD BCC) OUTPATIENT [id number] wrist pain [phone] EFREN MAYA 09/17 Released w/o Limitations [address] [place] [address] [place] LAUREB [facility])(F amily Med Tm B Non-AD BCC) [address] [place] [address] [place] [facility])(War rior Op Med Cln Tm A Ad) OUTPATIENT [id number] feeling nervous all the time [phone] EFREN MAYA 02/11 Released w/o Limitations [address] [place] [address])(W arrior Op Med Cln Tm A Ad) [address] [place] [address])(War rior Op Med Cln Tm A Ad) OUTPATIENT [id number] abd pain [phone] EFREN MAYA 04/27 Released w/o Limitations [address] [place] [address])(W arrior Op Med Cln Tm A Ad) [address] [place] [address])(War rior Op Med Cln Tm A Ad) TELE CONSULT [id number] Lab Result Review results with patient EFREN MAYA 04/[address] [place] [address])(W arrior Op Med Cln Tm A Ad) [address] [place] [address])(War rior Op Med Cln Tm A Ad) TELE CONSULT [id number] Notes Entered by: GENA MARTE 17 Dec 2011 1237 ------- ------- ------- ------- -- Tcon for possibl e sinus infecti on CHANCE Maya ph [phone] cad EVONNE Harrison 12/[address] [place] [address])(W arrior Op Med Cln Tm A Ad) [address] [place] [address])(War rior Op Med Cln Tm A Ad) OUTPATIENT [id number] sinus infecti on [id number] EFREN MAYA 12/23 Released w/o Limitations [address] [place] [address])(W arrior Op Med Cln Tm A Ad) [address] [place] [address])(War rior Op Med Cln Tm A Ad) TELE CONSULT [id number] Notes Entered by: Duglas SILVESTRE 09 Mar 2012 1342 ------- ------- ------- ------- -- Med refill Nexium 40 mg daily Lance /byron [id number] ANDRAE SIMS 03/[address] [place] [address])(W arrior Op Med Cln Tm A Ad) [address] [place] [address])(War rior Op Med Cln Tm A Ad) OUTPATIENT [id number] cough congest ion [phone] LOIS IBARRA 06/09 Released w/o Limitations [address] [place] [address])(W arrior Op Med Cln Tm A Ad) [address] [place] [address])(Cma ecology) TELE CONSULT [id number] Notes Entered by: Toby YA 10 Jun 2012 1448 ------- ------- ------- ------- -- Walk in HCG CRISTOPHER LARY L 06/[address] [place] [address])(G dung gy) [address] [place] [address])(Fam jesus Med Tm B Non-AD BCC) TELE CONSULT [id number] Notes Entered by: RONAL NUNO 22 Jun 2012 0925 ------- ------- ------- ------- -- Vaginal pain, abnorma l JE Tiwari 06/[address] [place] [address])(F amily Med Tm B Non-AD BCC) [address] [place] [address])(Cma ecology) TELE CONSULT [id number] Notes Entered by: LEVON FLORES 22 Jun 2012 1117 ------- ------- ------- ------- -- F/u appt for ER visit LARY NICHOLAS Aman 06/[address] [place] [address])(Geoffrey razo gy) [address] [place] [address])(Cma ecology) TELE CONSULT [id number] Notes Entered by: KARTHIK SANDOVAL 06 Jul 2012 1352 ------- ------- ------- ------- -- Resched pia [place] appt - Josue ruelas - [phone] MARY JO ELKINS 07/06 Referred for Appointment [address] [place] [address] [place] [facility])(G ynecodenis gy) [address] [place] [address] [place] [facility])(Cma ecology) OUTPATIENT [id number] Follow up ER visit, lower pelvic pain, UTI, dysuria and mild inconti neanushae ANI CHOI 07/15 Released w/o Limitations [address] [place] [address])(G ynecodenis gy) [address] [place] [address])(Ob/ Cma) TELE CONSULT [id number] Notes Entered by: TESSA SORIA 12 Aug 2012 1007 ------- ------- ------- ------- -- Lab result VERONICA JOHNS 08/[address] [place] [address])(O b/Cma) [address] [place] [address] [place] [facility])(War rior Op Med Cln Tm A Ad) TELE CONSULT [id number] Notes Entered by: RONAL NUNO 17 Aug 2012 1020 ------- ------- ------- ------- -- Vaginal itching /burnin g ANDRAE Nguyen 08/[address] [place] [address] [place] [facility])(W arrior Op Med Cln Tm A Ad) [address] [place] [address] [place] [facility])(Cma ecology) TELE CONSULT [id number] Notes Entered by: TESSA SORIA 30 Aug 2012 1003 ------- ------- ------- ------- -- US result VERONICA JOHNS 08/[address] [place] [address] [place] [facility])(Geoffrey razo gy) [address] [place] [address] [place] [facility])(Sco tt [facility] Team 3) OUTPATIENT [id number] neck and shoulde r pain x 2 weeks; denies injury, LOIS IBARRA 10/11 Released w/o Limitations [address] [place] [address] [place] [facility])(S [facility] Team 3) [address] [place] [address] [place] [facility])([facility] Team 3) TELE CONSULT [id number] Notes Entered by: RONAL NUNO 19 Oct 2012 1356 ------- ------- ------- ------- -- Flu symptom s ANDRAE Nguyen 10/[address] [place] [address])([facility] Team 3) [address] [place] [address])([facility] Team 3) TELE CONSULT [id number] Notes Entered by: SOPHIA LARA 08 Nov 2012 1206 ------- ------- ------- ------- -- Ling Devlin [id number] ANDRAE SIMS 11/[address] [place] [address])([facility] Team 3) [address] [place] [address])(War rior Op Med Cln Tm A Ad) TELE CONSULT [id number] Notes Entered by: OWEN NEGRETE 21 Nov 2012 0824 ------- ------- ------- ------- -- Josue ruelas/Karen Sanchez on ANDARE SIMS 11/[address] [place] [address])(W arrior Op Med Cln Tm A Ad) [address] [place] [address])(War rior Op Med Cln Tm A Ad) TELE CONSULT [id number] Notes Entered by: KANU ANGEL 14 Dec 2012 1129 ------- ------- ------- ------- -- Network Results - Physica l Therapy - 3 LOIS IBARRA 12/[address] [place] [address])(W arrior Op Med Cln Tm A Ad) [address] [place] [address])([facility] Team 3) TELE CONSULT [id number] Notes Entered by: SHAUN JOHNSTON 22 Dec 2012 1443 ------- ------- ------- ------- -- Med Refill- Josue ruelas/ ANDRAE SIMS 12/[address] [place] [address])([facility] Team 3) [address] [place] [address])(War rior Op Med Cln Tm A Ad) TELE CONSULT [id number] Notes Entered by: KANU ANGEL 23 Jan 2013 1211 ------- ------- ------- ------- -- Network Results - Kavina aman Therapy - 3 MANN BUCIO 01/[address] [place] [address])(W arrior Op Med Cln Tm A Ad) [address] [place] [address])(Sco [facility] Team 3) TELE CONSULT [id number] Notes Entered by: Duglas SILVESTRE 25 Jan 2013 1510 ------- ------- ------- ------- -- Med refill Leonel MACARENA THOMAS I 01/[address] [place] [address])([facility] Team 3) [address] [place] [address])(War rior Op Med Cln Tm A Ad) OUTPATIENT [id number] acid relux-m ed not working , ring in L ear [id number] RAHUL SCHMITT 02/21 Released w/o Limitations [address] [place] [address])(W arrior Op Med Cln Tm A Ad) [address] [place] [address])(War rior Op Med Cln Tm A Ad) TELE CONSULT [id number] Notes Entered by: RAHUL SCHMITT 22 Feb 2013 1254 ------- ------- ------- ------- -- F/u from labs RAHUL SCHMITT 02/[address] [place] [address])(W arrior Op Med Cln Tm A Ad) [address] [place] [address])(War rior Op Med Cln Tm A Ad) TELE CONSULT [id number] Notes Entered by: STARLA MARES 03 Mar 2013 1510 ------- ------- ------- ------- -- Ear pain/Giraldo jae / JODIE RODRIGUEZ 03/03 Referred for Appointment [address] [place] [address] Group [facility])(W arrior Op Med Cln Tm A Ad) [address] [place] [address])(War rior Op Med Cln Tm A Ad) OUTPATIENT [id number] ear pain JYOTHI BATES 03/06 Released w/o Limitations [address] [place] [address])(W arrior Op Med Cln Tm A Ad) [address] [place] [address])(War rior Op Med Cln Tm A Ad) TELE CONSULT [id number] Notes Entered by: SOPHIA LARA 09 Mar 2013 1506 ------- ------- ------- ------- -- Ling Colon [facility] [id number] JODIE RODRIGUEZ 03/09 Referred for Appointment [address] [place] [address] Group [facility])(W arrior Op Med Cln Tm A Ad) [address] [place] [address])(Cma ecology) TELE CONSULT [id number] Notes Entered by: SUSAN CONTRERAS 27 Apr 2013 0942 ------- ------- ------- ------- -- Walk in for YONG Vaughan 04/[address] [place] [address])(Geoffrey arenas) [address] [place] [address])(War rior Op Med Cln Tm A Ad) TELE CONSULT [id number] Notes Entered by: Duglas SILVESTRE 28 Apr 2013 1157 ------- ------- ------- ------- -- Sinus infecti on Hargr es EB DOMINGO Delgado 04/[address] [place] [address] [facility])(W arrior Op Med Cln Tm A Ad) [address] [place] [address])(War rior Op Med Cln Tm A Ad) TELE CONSULT [id number] Notes Entered by: STARLA MARES 01 May 2013 0827 ------- ------- ------- ------- -- [phone] OLAF DOMINGODEJON Natarajan 05/[address] [place] [address] [facility])(W arrior Op Med Cln Tm A Ad) [address] [place] [address])(Ob/ Cma) OUTPATIENT [id number] New OB with IBS EDC approx Oct 14. CLEMENTINA DAVILA 05/01 Released w/o Limitations [address] [place] [address])(O b/Cma) [address] [place] [address])(Ob/ Cma) OUTPATIENT [id number] Notes Entered by: JENI CHEN 05 May 2013 1132 ------- ------- ------- ------- -- NIC RAHMAN 5May14/ repeat u/s CLEMENTINA DAVILA 05/05 Released w/o Limitations [address] [place], [place] [address]B [facility])(O b/Cma) [address] [place] [address])(Ob/ Cma) TELE CONSULT [id number] Notes Entered by: MARY JO ELKINS 10 May 2013 1250 ------- ------- ------- ------- -- CLEMENTINA Love 05/[address] [place], [place] [address]B [facility])(O b/Cma) [address] [place] [address])(Ob/ Cma) OUTPATIENT [id number] NIC EDC [id number] GUERRERO DWYER 05/25 Released w/o Limitations [facility] [place] B ([place])(O b/Cma) [facility] [place] [facility])(Ob/ Cma) TELE CONSULT [id number] Notes Entered by: MARY JO ELKINS 03 Jul 2013 1451 ------- ------- ------- ------- -- Medicat ion MARY JO ELKINS 07/[address] [place] [address] [place] [facility] ([place])(O b/Cma) [address] [place] [address] [place] [facility] ([place])(Ob/ Cma) TELE CONSULT [id number] Notes Entered by: MARY JO ELKINS 05 Jul 2013 1309 ------- ------- ------- ------- -- Cold Symptom s MARY JO ELKINS 07/[address] [place] [address] ([place])(O b/Cma) [address] [place] [address])(Ob/ Cma) OUTPATIENT [id number] [facility] December 13 VIOLET WALKER 07/06 Released w/o Limitations [address] [place] [address] [place] [facility] ([place])(O b/Cma) [address] [place] [address])(Ob/ Cma) TELE CONSULT [id number] Notes Entered by: MARY JO ELKINS 06 Jul 2013 1426 ------- ------- ------- ------- -- [facility] MARY JO Corley 07/[address] [place] [address] [place] B ([place])(O b/Cma) [address] [place] [address] [place] B ([place])(Ob/ Cma) TELE CONSULT [id number] Notes Entered by: MARY JO ELKINS 17 Jul 2013 1109 ------- ------- ------- ------- -- Anxiety MARY JO ELKINS 07/[address] [place] [address] [place] B ([place])(O b/Cma) [address] [place] [address] [place] [facility])(Ob/ Cma) TELE CONSULT [id number] Notes Entered by: LASHELL PARIS 18 Jul 2013 0758 ------- ------- ------- ------- -- Network Results -OBSTET RICS 3 GUERRERO DWYER 07/[address] [place] [address])(O b/Cma) [address] [place] [address])(Ob/ Cma) OUTPATIENT [id number] evaluat ion for anti-an xiety medicat ion d/t acute panic attacks GUERRERO DWYER 07/18 Released w/o Limitations [address] [place] [address])(O b/Cma) [address] [place] [address])(Ob/ Cma) TELE CONSULT [id number] Notes Entered by: MARY JO ELKINS 11 Aug 2013 1606 ------- ------- ------- ------- -- Medicat ion Refill GUERRERO DWYER 08/[address] [place] [address])(O b/Cma) [address] [place] [address])(Ob/ Cma) TELE CONSULT [id number] Notes Entered by: LASHELL PARIS 16 Aug 2013 1040 ------- ------- ------- ------- -- Network Results -OBSTET RICS 08/14/13 ANI CHOI 08/[address] [place] [address])(O b/Cma) [address] [place] [address])(Ob/ Cma) OUTPATIENT [id number] nic - [facility] december 13 GUERRERO DWYER 08/17 Released w/o Limitations [address] [place] [address])(O b/Cma) [address] [place] [address])(Ob/ Cma) TELE CONSULT [id number] Notes Entered by: ST KATERYNA DAVILA 27 Aug 2013 1307 ------- ------- ------- ------- -- anxiety CLEMENTINA DAVILA 08/[address] [place] [address] [place] [facility])(O b/Cma) [address] [place] [address])(Ob/ Cma) OUTPATIENT [id number] follow up appt/an xiety attacks /treatm ent plan YULIYAGUERRERO Reynaldo 08/28 Released w/o Limitations [address] [place] [address] [place] [facility]O b/Cma) [address] [place] [address] [place] [facility])(Ob/ Cma) TELE CONSULT [id number] Notes Entered by: Aster DWYER 29 Aug 2013 0908 ------- ------- ------- ------- -- Anxiety GUERRERO DWYER 08/[address] [place] [address])(O b/Cma) [address] [place] [address])(Ob/ Cma) TELE CONSULT [id number] Notes Entered by: Duglas DAVIES 05 Sep 2013 1131 ------- ------- ------- ------- -- Med ANTONIO Yoo 09/[address] [place] [address])(O b/Cma) [address] [place] [address])(Ob/ Cma) OUTPATIENT [id number] f/u hospita lizatio n/anxie ANI Irving 09/08 Released w/o Limitations [address] [place] [address])(O b/Cma) [address] [place] [address])(Ob/ Cma) TELE CONSULT [id number] Notes Entered by: ME JARED CANO 12 Sep 2013 1146 ------- ------- ------- ------- -- Insomni a 24 6/7 week Ob-per our convers ation GUERRERO DWYER 09/[address] [place] [address] [place] [facility]O b/Cma) [address] [place] [address] [place] [facility])(Sco tt [facility]) TELE CONSULT [id number] Notes Entered by: Jim ENRIQUEZ 12 Sep 2013 1747 ------- ------- ------- ------- -- seen inpatie nt, needs THELMA Barahona 09/[address] [place] [address] ([place])(S kenisha [facility]) [address] [place] [address])(Ob/ Cma) TELE CONSULT [id number] Notes Entered by: MARY JO ELKINS 13 Sep 2013 1540 ------- ------- ------- ------- -- MACARENA Rao I 09/[address] [place] [address])(O b/Cma) [address] [place] [address])(Ob/ Cma) OUTPATIENT [id number] NEW MEDICAT ION FOLLOW UP/EDC DECEMBER 13 GUERRERO DWYER 09/15 Released w/o Limitations [address] [place] [address])(O b/Cma) [address] [place] [address])(Ob/ Cma) TELE CONSULT [id number] Notes Entered by: MARY JO ELKINS 19 Sep 2013 1505 ------- ------- ------- ------- -- Medicat ion Increas e GUERRERO DWYER 09/[address] [place] [address])(O b/Cma) [address] [place] [address])(Cma ecology) TELE CONSULT [id number] Notes Entered by: LASHELL PARIS 20 Sep 2013 0816 ------- ------- ------- ------- -- Network Results -OBSTET RICS 09/12/13 ANI CHOI 09/[address] [place] [address])(Geoffrey razo gy) [address] [place] [address])(Ob/ Cma) OUTPATIENT [id number] nic edc december 13 THELMA HA 09/21 Released with Work/Duty Limitations [address] [place] [address] [facility])(O b/Cma) [facility] [place] [facility])(Ob/ Cma) OUTPATIENT [id number] HROB EDCDecember 13 GUERRERO DWYER 09/25 Released w/o Limitations [address] [place] [address] [place] B [facility])(O b/Cma) [address] [place] [address] [place] [facility])(Ob/ Cma) TELE CONSULT [id number] Notes Entered by: YAZAN MILLS 26 Sep 2013 0920 ------- ------- ------- ------- -- HROB-vo augustine/ CLEMENTINA Perez 09/[address] [place] [address] Group [place] [facility])(O b/Cma) [address] [place] [address])(Ob/ Cma) TELE CONSULT [id number] Notes Entered by: MARY JO ELKINS 02 Oct 2013 1052 ------- ------- ------- ------- -- MF MARY JO Corley 10/[address] [place] [address] [place] [facility])(O b/Cma) [address] [place] [address] [place] [facility])(Cma ecology) TELE CONSULT [id number] Notes Entered by: Aster DWYER 03 Oct 2013 0803 ------- ------- ------- ------- -- Abnorma l glucose screen GUERRERO DWYER 10/[address] [place] [address] [place] [facility] ([place])(G dung gy) [address] [place] [address] [place] [facility])(Ob/ Cma) OUTPATIENT [id number] HROB/ EDC December 13 GUERRERO DWYER 10/05 Released w/o Limitations [address] [place] [address] Group [place] KELSEYB [facility])(O b/Cma) [address] [place] [address] [place] [facility])(Cma ecology) TELE CONSULT [id number] Notes Entered by: Aster DWYER 06 Oct 2013 1542 ------- ------- ------- ------- -- Elevate d 3 hr GTT WILLIAMATULMACARENA I 10/06 [facility] [employer] ([place])(G yalka gy) [facility] [employer] ([place])(Ob/ Cma) OUTPATIENT [id number] HROB/ EDC [id number] GUERRERO DWYER 10/13 Released w/o Limitations [facility] [employer] ([place])(O b/Cma) [facility] [employer] ([place])(Ob/ Cma) TELE CONSULT [id number] Notes Entered by: LASHELL PARIS 18 Oct 2013 0905 ------- ------- ------- ------- -- Network Results -[facility] 10/05/13 CLEMENTINA DAVILA 10/18 [facility] [employer] ([place])(O b/Cma) [address] [place] [address] [employer] ([place])(Ob/ Cma) OUTPATIENT [id number] HROB/ EDC December 13 GUERRERO DWEYR 10/19 Released w/o Limitations [facility] [employer] ([place])(O b/Cma) [facility] [employer] ([place])(Ob/ Cma) TELE CONSULT [id number] Notes Entered by: LASHELL PARIS 20 Oct 2013 1131 ------- ------- ------- ------- -- Network Results -[facility] 10/06/13 GUERRERO DWYER 10/20 [facility] [employer] [place]O b/Cma) [facility] [employer] ([place])([facility]) TELE CONSULT [id number] Notes Entered by: CATHY TOMAS 25 Oct 2013 1058 ------- ------- ------- ------- -- Message from OB TEAM CATHY TOMAS 10/25 [facility] [employer] ([place]) [facility] [employer] ([place])([employer]) TELE CONSULT [id number] Notes Entered by: Aster DWYER 26 Oct 2013 0954 ------- ------- ------- ------- -- Pt phoneca belkis DWYER GUERRERO Reynaldo 10/[address] [place] [address] ([place])(G ynecolo gy) [address] [place], [place] [address]B [facility])(Ob/ Cma) OUTPATIENT [id number] HROB EDC [id number] CLEMENTINA DAVILA 10/26 Released w/o Limitations [address] [place], [place] [address]B ([place])(O b/Cma) [address] [place] [address] [place] [employer] [facility])(Ob/ Cma) TELE CONSULT [id number] Notes Entered by: RADHA LANZA 27 Oct 2013 1511 ------- ------- ------- ------- -- Medicat ion inquiry GYAE DECKER 10/[address] [place] [address] ([place])(O b/Cma) [address] [place], [place] [address]B [facility])(Ob/ Cma) TELE CONSULT [id number] Notes Entered by: RADHA LANZA 30 Oct 2013 0915 ------- ------- ------- ------- -- Medicat ion reactio GAYE Melissa 10/[address] [place], [place] [address]B ([place])(O b/Cma) [address] [place], [place] [address]B [facility])([facility]) OUTPATIENT [id number] [facility] REYES CHOWDHURY 11/03 Released w/o Limitations [address] [place], [place] [address]B [facility])(N utritio nal Medicin e) [facility] [employer] ([place])(Ob/ Cma) TELE CONSULT [id number] Notes Entered by: RADHA LANZA 08 Nov 2013 0803 ------- ------- ------- ------- -- Refill prescri ptGAYE Villela 11/[address] [place] [address] [employer] ([place])(O b/Cma) [address] [place], [place] [address]B [facility])(War rior Op Med Cln Tm A Ad) OUTPATIENT [id number] Cough/C ongesti on SHAHNAZ JINCHETNA A 11/08 Released w/o Limitations [facility] [employer] ([place])([facility] Tm A Ad) [facility] [employer] [place])(Ob/ Cma) OUTPATIENT [id number] HROB EDC [id number] GUERRERO DWYER 11/13 Released w/o Limitations [facility] [employer] ([place])(O b/Cma) [facility] [employer] ([place])(Ob/ Cma) OUTPATIENT [id number] HROB/ED C December 13 CLEMENTINA DAVILA 11/27 Released w/o Limitations [facility] [employer] ([place])(O b/Cma) [facility] [employer] ([place])(Ob/ Cma) TELE CONSULT [id number] Notes Entered by: JANINA MUHAMMAD 04 Dec 2013 0933 ------- ------- ------- ------- -- Nausea and dry heaving MACARENA THOMAS I 12/04 [facility] [employer] ([place])(O b/Cma) [facility] [employer] ([place])(Ob/ Cma) TELE CONSULT [id number] Notes Entered by: LASHELL PARIS 11 Dec 2013 1121 ------- ------- ------- ------- -- Network Results -[facility] 12/04/13 GUERRERO DWYER 12/11 [facility] [employer] ([place])(O b/Cma) [facility] [employer] ([place])(Ob/ Cma) OUTPATIENT [id number] Post check up/del December 13 CLEMENTINA DAVILA 12/21 Released w/o Limitations [facility] [employer] ([place])(O b/Cma) [facility] [employer] ([place])(Ob/ Cma) OUTPATIENT [id number] 6WPP/ Del 05 Dec 2013 ANI CHOI 01/23 Released w/o Limitations [employer] ([place])(O b/Cma) [employer] ([place])([facility] ecology) OUTPATIENT [id number] [facility] ALYSSA Michel 02/20 Released w/o Limitations [employer] ([place])(G ynecolo gy) [employer] ([place])([facility] Cl[facility] Tm A Ad) TELE CONSULT [id number] Notes Entered by: Abelino SILVESTRE 01 May 2014 1304 ------- ------- ------- ------- -- ER PEG/Gayle ceballos [phone] EVONNE BRAR 05/01 [employer] ([place])(W arrior Op Med Cln Tm A Ad) [employer] ([place])(Cma ecology) OUTPATIENT [id number] WWE LUISANA DEVLIN 06/04 Released w/o Limitations [employer] [place] [employer] ([place])(G ynecolo gy) [employer] [place] [employer] ([place])(Cma ecology) OUTPATIENT [id number] Paragar d Inserti on [phone] LUISANA DEVLIN 06/18 Released w/o Limitations [employer] [place] [employer] ([place])(G ynecolo gy) [employer] [place] [employer] ([place])(War ri[facility] Op Med Cln Tm A Ad) OUTPATIENT [id number] right wrist pain - [id number] CHETNA MESA 07/09 Released w/o Limitations [employer] [place] [employer] ([place])(W arrior Op Med Cln Tm A Ad) [employer] ([place])(Cma ecology) OUTPATIENT [id number] [address] placeme nt check LUISANA DEVLIN 09/07 Released w/o Limitations [employer] ([place])(G ynecolo gy) [employer] ([place])(War ri[facility] Op Med Cln Tm A Ad) TELE CONSULT [id number] Notes Entered by: ROZ GASTELUM 21 Sep 2014 1006 ------- ------- ------- ------- -- SX - multipl e sx/[facility]n [facility] t/ * MANN COLON 09/[address] [place] [address])(W arrior Op Med Cln Tm A Ad) [address] [place] [address])(War rior Op Med Cln Tm A Ad) OUTPATIENT [id number] Ovarian Cyst, ER Visit FollowLAMAR Mott 09/24 Released w/o Limitations [address] [place] [address])(W arrior Op Med Cln Tm A Ad) [address] [place] [address])(C[place] ecology) OUTPATIENT [id number] Possibl e Ovarion Cyst GUERRERO DWYER 09/24 Released w/o Limitations [address] [place] [address])(G ynecolo gy) [address] [place] [address])(Ob/ Cma) TELE CONSULT [id number] Notes Entered by: Aster DWYER 04 Oct 2014 1623 ------- ------- ------- ------- -- U/S results VERONICA JOHNS 10/[address] [place] [address])(O b/Cma) [address] [place] [address])(War rior Op Med Cln Tm A Ad) OUTPATIENT [id number] pain in both feet -L is worse x 1wk [id number] TENZIN HOPE 12/11 Released w/o Limitations [address] [place] [address])(W arrior Op Med Cln Tm A Ad) [address] [place] [address])(War rior Op Med Cln Tm A Ad) TELE CONSULT [id number] Notes Entered by: KANU ANGEL 29 Jan 2015 1253 ------- ------- ------- ------- -- Network results Neurolo gy 5 TENZIN HOPE eDlgado 01/[address] [place] [address])(W arrior Op Med Cln Tm A Ad) [address] [place] [address])(Cma ecology) OUTPATIENT [id number] red,bli stery vagina [phone] ALYSSA COLÓN 02/05 Released w/o Limitations [address] [place] [address])(G ynecolo gy) [address] [place] [address])([place] ecology) TELE CONSULT [id number] Notes Entered by: ANDREWS COLÓN 12 Feb 2015 1635 ------- ------- ------- ------- -- results LAMAR ALVARADO 02/[address] [place] [address])(G ynecodenis gy) [address] [place] [address])(War rior Op Med Cln Tm A Ad) TELE CONSULT [id number] Notes Entered by: KANU ANGEL 01 Mar 2015 0938 ------- ------- ------- ------- -- Network results Neurolo gy 5 TENZIN HOPE Delgado 03/[address] [place] [address])(W arrior Op Med Cln Tm A Ad) [address] [place] [address])([place] ecology) TELE CONSULT [id number] Notes Entered by: JUAN ALBERTO GRIMM 10 Apr 2015 1049 ------- ------- ------- ------- -- Sx - Multipl e sx/Layla donnelly/6 18.741. 4012 ANANDA WILLAMS 04/[address] [place] [address])(G ynecolo gy) [address] [place] [address])(C[place] ecology) OUTPATIENT [id number] pelvic pain, vaginal bleedin g x 2weeks AMAYA BAEZ 04/11 Released w/o Limitations [address] [place] [address])(G ynecolo gy) [address] [place] [address])(War rior Op Med Cln Tm A Ad) TELE CONSULT [id number] Notes Entered by: SAILAJA DEVLIN 15 Apr 2015 0818 ------- ------- ------- ------- -- Lab Results / Gil limon / KEL THOMPSON 04/[address] [place] [address])(W arrior Op Med Cln Tm A Ad) [address] [place] [address])(War rior Op Med Cln Tm A Ad) TELE CONSULT [id number] Notes Entered by: ALESIA BARRAGAN 26 Apr 2015 1103 ------- ------- ------- ------- -- ER Follow- up/ Gil ne/ 741.401 2 MANN COLON 04/[address] [place] [address])(W arrior Op Med Cln Tm A Ad) [address] [place] [address])([place] ecology) OUTPATIENT [id number] discuss tubalig ation [id number] GUERRERO DWYER 04/30 Released w/o Limitations [address] [place] [address])(G ynecolo gy) [address] [place] [address])(War rior Op Med Cln Tm A Ad) TELE CONSULT [id number] Notes Entered by: JEN BADILLO 23 May 2015 1046 ------- ------- ------- ------- -- Network Results -GASTRO ENTEROL OGY 5 TENZIN HOPE 05/[address] [place] [address])(W arrior Op Med Cln Tm A Ad) [address] [place] [address])(Cma ecology) TELE CONSULT [id number] Notes Entered by: GILSON THOMSON 04 Jun 2015 0811 ------- ------- ------- ------- -- Cancel for Bella bojorquez/t jad- GILSON Osuna 06/[address] [place] [address])(G ynecolo gy) [address] [place] [address])(Cma ecology) TELE CONSULT [id number] Notes Entered by: Aster DWYER 05 Jun 2015 0859 ------- ------- ------- ------- -- U/S result VERONICA JOHNS 06/[address] [place] [address])(codenis gy) [address] [place] [address])( rior Op Med Cln Tm A Ad) OUTPATIENT [id number] Bad cough, headach e, nasal and chest congest ion [id number] MIRCHELLYPLACIDO ZAIDI 06/05 Released w/o Limitations [address] [place] [address])(W arrior Op Med Cln Tm A Ad) [address] [place] [address])( rior Op Med Cln Tm A Ad) TELE CONSULT [id number] Notes Entered by: KANU ANGEL 07 Jun 2015 1008 ------- ------- ------- ------- -- Network results Neurolo gy 5 TENZIN HOPE 06/[address] [place] [address])(W arrior Op Med Cln Tm A Ad) [address] [place] [address])(Fam jesus Med Tm B Non-AD BCC) TELE CONSULT [id number] Notes Entered by: MANN COLON 22 Aug 2015 0755 ------- ------- ------- ------- -- Referra l for physica l therapy needed MANN COLON 08/[address] [place] [address])(F amily Med Tm B Non-AD BCC) [address] [place] [address])(War rior Op Med Cln Tm A Ad) TELE CONSULT [id number] Notes Entered by: Delgado PIERCE 26 Aug 2015 1313 ------- ------- ------- ------- -- SX - Multipl e SX / Gil ne / JOE ASH 08/26 Referred for Appointment [address] [place] [address])(W arrior Op Med Cln Tm A Ad) [address] [place] [address])(War rior Op Med Cln Tm A Ad) TELE CONSULT [id number] Notes Entered by: KANU ANGEL 28 Aug 2015 1302 ------- ------- ------- ------- -- Network Results - Neurolo gy 6 TENZIN HOPE 08/[address] [place] [address])(W arrior Op Med Cln Tm A Ad) [address] [place] [address])(Cma ecology) OUTPATIENT [id number] Discuss Essure procedu re ANI CHOI 09/23 Released w/o Limitations [address] [place] [address])(G ynecolo gy) [address] [place] [address])(War rior Op Med Cln Tm A Ad) OUTPATIENT [id number] L and R shoulde r pain x 2 wks 741.401 2 TENZIN HOPE 09/25 Released w/o Limitations [address] [place] [address])(W arrior Op Med Cln Tm A Ad) [address] [place] [address])(War rior Op Med Cln Tm A Ad) TELE CONSULT [id number] Notes Entered by: JUAN ALBERTO GRIMM 02 Oct 2015 1405 ------- ------- ------- ------- -- Sx - Multipl e sx/Layla donnelly/Jesica 41.4012 JOE ASH 10/01 Referred for Appointment [address] [place] [address] [place] [facility])(W arrior Op Med Cln Tm A Ad) [facility] [place] [facility])(Cma ecology) TELE CONSULT [id number] Notes Entered by: DIMPLE MALIK 03 Oct 2015 0927 ------- ------- ------- ------- -- Pre-op call for Essure on 10 Oct 2015 FAMILIA THOMPSON 10/[address] [place] [address] Group [place] [facility])(G ynecolo gy) [address] [place] [address] Group [place] [facility])(War rior Op Med Cln Tm A Ad) OUTPATIENT [id number] cough, congest ion and ear pain TENZIN HOPE 10/02 Released w/o Limitations [address] [place] [address] Group [facility])(W arrior Op Med Cln Tm A Ad) [address] [place] [address])(Cma ecology) OUTPATIENT [id number] essure procedu re - [phone] ANI CHOI 10/09 Released w/o Limitations [address] [place] [address] Group [facility])(G ynecolo gy) [address] [place] [address])(Cma ecology) TELE CONSULT [id number] Notes Entered by: DIMPLE MALIK 11 Oct 2015 0859 ------- ------- ------- ------- -- Callbac k for Essure on 10 Oct 2015 DIMPLE JOHNSON 10/10 Referred for Appointment [address] [place] [address] Group [facility])(G ynecolo gy) [address] [place] [address])(Cma ecology) TELE CONSULT [id number] Notes Entered by: LEVON FLORES 15 Oct 2015 1032 ------- ------- ------- ------- -- Bleedin g after ESSURE procedu re on Oct 15. DIMPLE JOHNSON 10/14 Referred for Appointment [address] [place] [address] Group [facility])(G ynecolo gy) [address] [place] [address])(Med ication Refill Clinic) TELE CONSULT [id number] Notes Entered by: Delgado PIERCE 21 Oct 2015 1501 ------- ------- ------- ------- -- Med renewal / [facility] ne / ZULMA JAMISON 10/[address] [place] [address])(M edicati on Refill Clinic) [address] [place] [address])(Med ication Refill Clinic) TELE CONSULT [id number] Notes Entered by: Vidal YA 17 Dec 2015 1144 ------- ------- ------- ------- -- Med bridge, Appt Jan 15 / [facility] braxton / DENIZ FRANKLIN 12/[address] [place] [address])(Michel eddiogenes on Refill Clinic) [address] [place] [address])(Cma ecology) OUTPATIENT [id number] [facility] s/p GIANNA Marino 01/06 Released w/o Limitations [address] [place] [address])(G ynecolo gy) [address] [place] [address])(War rior Op Med Cln Tm A Ad) OUTPATIENT [id number] Med Renewal s 741.401 2 TENZIN HOPE 01/07 Released w/o Limitations [address] [place] [address])(W arrior Op Med Cln Tm A Ad) [address] [place] [address])(Cma ecology) OUTPATIENT [id number] possibl e yeast infecti on - [phone] AMAYA BAEZ 03/04 Released w/o Limitations [address] [place] [address])(G ynecolo gy) [address] [place] [address])(Cma ecology) TELE CONSULT [id number] Notes Entered by: KYLE BAEZ 16 Mar 2016 1032 ------- ------- ------- ------- -- Test results LAMAR ALVARADO 03/16 [employer] ([place])(G ynecolo gy) [employer] ([place])(Sco tt MTF BHOP) OUTPATIENT [id number] Dawson MILLSPATRICIA Dilma 04/10 Released w/o Limitations [employer] ([place])(S cott MTF BHOP) [employer] [place])(Cma ecology) OUTPATIENT [id number] repeat hsg - rt side - s/p KARI Pierce 04/14 Released w/o Limitations [employer] [place])(G ynecolo gy) [employer] [place])(Cma ecology) OUTPATIENT [id number] PARAGAR Dilma LOREDOI ON - [phone] KARI QUINONES 04/21 Released w/o Limitations [facility] [place] [employer] ([place])(G ynecolo gy) [facility] [place] [employer] [place])(Fam jesus Med Tm B Non-AD BCC) OUTPATIENT [id number] pressur e headach e - sore throat from drainag e - [id number] 012 DEVIN GIBSON 06/08 Released w/o Limitations [employer] ([place])(F amily Med Tm B Non-AD BCC) [employer] [place])(War rior Op Med Cln Tm A Ad) OUTPATIENT [id number] med renewal /referr MILLY Duong 07/14 Released w/o Limitations [employer] ([place])(W arrior Op Med Cln Tm A Ad) [employer] [place])(War rior Op Med Cln Tm A Ad) OUTPATIENT [id number] sore throat, fever, body aches x2 days / TENZIN HOPE 09/02 Released w/o Limitations [employer] [place])(W arrior Op Med Cln Tm A Ad) Medical [facility] [employer] [place])(War rior Op Med Cln Tm A Ad) TELE CONSULT [id number] Notes Entered by: GLEN COTO 14 Sep 2016 0946 ------- ------- ------- ------- -- Network Results Radiolo gy 7 DS TENZIN HOPE 09/[address] [place] [address])(W arrior Op Med Cln Tm A Ad) [address] [place] [address])(War rior Op Med Cln Tm A Ad) TELE CONSULT [id number] Notes Entered by: JEN BADILLO 14 Sep 2016 1211 ------- ------- ------- ------- -- Network Results -GASTRO ENTEROL OGY 08/28/16 [facility] TENZIN HOPE 09/[address] [place] [address])(W arrior Op Med Cln Tm A Ad) [address] [place] [address])(War rior Op Med Cln Tm A Ad) OUTPATIENT [id number] Knot near R Collar bone [id number] TENZIN HOPE 10/23 Released w/o Limitations [address] [place] [address])(W arrior Op Med Cln Tm A Ad) [address] [place] [address])(War rior Op Med Cln Tm A Ad) OUTPATIENT [id number] dizzy, headach es, ear aches, [id number] MILLY BEGUM 12/14 Released w/o Limitations [address] [place] [address])(W arrior Op Med Cln Tm A Ad) [address] [place] [address])(War rior Op Med Cln Tm A Ad) TELE CONSULT [id number] Notes Entered by: TONY FOFANA 06 Jan 2017 1002 ------- ------- ------- ------- -- Network results Gastroe nterolo gy 12/31/16 MM TENZIN HOPE 01/[address] [place] [address])(W arrior Op Med Cln Tm A Ad) [address] [place] [address])(Med ication Refill Clinic) TELE CONSULT [id number] Notes Entered by: CRISTI CAREY 12 Jan 2017 1300 ------- ------- ------- ------- -- Med renewal /Kathy gne/618 .741.40 12/MILLY Everett 01/[address] [place] [address])(Michel bob on Refill Clinic) [address] [place] [address])(War rior Op Med Cln Tm A Ad) OUTPATIENT [id number] Dizzine ss, 741.401 2 PLACIDO MERAZ 02/08 Released w/o Limitations [address] [place] [address])(W arrior Op Med Cln Tm A Ad) [address] [place] [address])(War rior Op Med Cln Tm A Ad) TELE CONSULT [id number] Notes Entered by: JUAN ALBERTO GRIMM 25 Feb 2017 1202 ------- ------- ------- ------- -- Sx - Dizzine ss, R ear pain/Ch sharifagne / DARIEN, RAVIN J 02/[address] [place] [address])(W arrior Op Med Cln Tm A Ad) [address] [place] [address])(Fam jesus Med Tm B Non-AD BCC) TELE CONSULT [id number] Notes Entered by: CARLOS MANUEL CORTES 02 Mar 2017 1615 ------- ------- ------- ------- -- Network Results Emergen Room 7 BG PLACIDO MERAZ 03/[address] [place] [address])(F amily Med Tm B Non-AD BCC) [address] [place] [address])(Med ication Refill Clinic) TELE CONSULT [id number] Notes Entered by: HORTENCIA OLGUIN RET 15 Apr 2017 1145 ------- ------- ------- ------- -- Rx Sherice /Kathy schuler/618 .741.40 12 [facility] WICHO RUCKER Delgado 04/[address] [place] [address])(Michel bob on Refill Clinic) [address] [place] [address])(War rior Op Med Cln Tm A Ad) OUTPATIENT [id number] ear problem s 2 months TENZIN HOPE 04/19 Released w/o Limitations [address] [place] [address])(W arrior Op Med Cln Tm A Ad) [address] [place] [address])(War rior Op Med Cln Tm A Ad) TELE CONSULT [id number] Notes Entered by: HORTENCIA OLGUIN RET 29 Jun 2017 0726 ------- ------- ------- ------- -- Sx: Thea/C miguel rodarte/ [facility] DARIEN, RAVIN J 06/[address] [place] [address])(W arrior Op Med Cln Tm A Ad) [address] [place] [address])(War rior Op Med Cln Tm A Ad) OUTPATIENT [id number] sore throat, low grade temp 99-100, sinus congest ion, achines s TENZIN HOPE 06/29 Released w/o Limitations [address] [place] [address])(W arrior Op Med Cln Tm A Ad) [address] [place] [address])(War rior Op Med Cln Tm A Ad) TELE CONSULT [id number] Notes Entered by: ELISABET JOHNSON 02 Jul 2017 1226 ------- ------- ------- ------- -- Positiv e Strep Throat Culture TENZIN HOPE 07/[address] [place] [address])(W arrior Op Med Cln Tm A Ad) [address] [place] [address])(Cma ecology) OUTPATIENT [id number] bloody dischar ge x 1 week - [phone] AMAYA BAEZ 07/20 Released w/o Limitations [address] [place] [address])(G ynecolo gy) [address] [place] [address])(Cma ecology) TELE CONSULT [id number] Notes Entered by: KYLE BAEZ 10 Aug 2017 1317 ------- ------- ------- ------- -- Test results VERONICA JOHNS 08/[address] [place] [address])(G ynecolo gy) [address] [place] [address])(Fam jesus Med Tm B Non-AD BCC) OUTPATIENT [id number] [facility] F/U-SX Persist Ringing L ear/cou gh/sirisha estion [id number] KOBE SELF 09/08 Released w/o Limitations [address] [place] [address])(F amily Med Tm B Non-AD BCC) [address] [place] [address])(Med ication Refill Clinic) TELE CONSULT [id number] Notes Entered by: JUAN ALBERTO GRIMM 10 Sep 2017 0839 ------- ------- ------- ------- -- Med Renewal /Kathy gnaster/618 .741.40 DARIEN, RAVIN J 09/[address] [place] [address])(Michel bob on Refill Clinic) [address] [place] [address])(Andrew rior Op Med Cln Tm A Ad) TELE CONSULT [id number] Notes Entered by: HORTENCIA OLGUIN RET 13 Sep 2017 1022 ------- ------- ------- ------- -- SX: Left Ear pain/Ch sharifagne / [facility] DARIEN, RAVIN J 09/[address] [place] [address])(W arrior Op Med Cln Tm A Ad) [facility])(War rior Op Med Cln Tm A Ad) TELE CONSULT [id number] Notes Entered by: ALEJO BERNAL 23 Sep 2017 1159 ------- ------- ------- ------- -- Network Results Emergen cy Room 09/02/17 RK CANDI ARNOLD 09/[address] [place] [address] [place] [facility])(W arrior Op Med Cln Tm A Ad) [address] [place] [address])(Cma ecology) OUTPATIENT [id number] discuss bt/[facility] coils - [phone] KARI QUINONES 10/05 Released w/o Limitations [address] [place] [address])(G ynecodenis gy) [facility])(Ob/ Cma) TELE CONSULT [id number] YONG FLORES 10/[address] [place] [address])(O b/Cma) [address] [place] [address])(War rior Op Med Cln Tm A Ad) TELE CONSULT [id number] Notes Entered by: Vidal YEUNG 12 Oct 2017 1047 ------- ------- ------- ------- -- Network results Lesly holt gy 018 TENZIN MIDDLETON 10/[address] [place] [address])(W arrior Op Med Cln Tm A Ad) [address] [place] [address])(Cma ecology) TELE CONSULT [id number] Notes Entered by: Dilma ALVAREZ 12 Oct 2017 1334 ------- ------- ------- ------- -- Surgery reminde r 13 OCT 2017 NICCI ALVAREZ 10/[address] [place] [address])(G yneshraddha gy) [address] [place] [address])(Cma ecology) TELE CONSULT [id number] Notes Entered by: LORNA LOZASUSAN 15 Oct 2017 1356 ------- ------- ------- ------- -- Scanned carlotta gy report into KARI STAHL 10/15 [address] [place] [address])(G ynecolo gy) [address] [place] [address])(Med ication Refill Clinic) TELE CONSULT [id number] Notes Entered by: SAILAJA DEVLIN 21 Oct 2017 1004 ------- ------- ------- ------- -- Med Renewal / [place] ne / - sgWICHO Decker 10/[address] [place] [address])(Michel bob on Refill Clinic) [address] [place] [address])(War rior Op Med Cln Tm A Ad) TELE CONSULT [id number] Notes Entered by: KARTHIK SANDOVAL 22 Oct 2017 1018 ------- ------- ------- ------- -- Sx: Cough, congest ion - [place] ne - - tsg* URI SARABIA 10/22 Other Not Elsewhere Classified [address] [place] [address])(W arrior Op Med Cln Tm A Ad) [address] [place] [address])(Cma ecology) OUTPATIENT [id number] post op - [phone] KARI QUINONES 10/26 Released w/o Limitations [address] [place] [address])(G ynecolo gy) [address] [place] [address])(War rior Op Med Cln Tm A Ad) TELE CONSULT [id number] Notes Entered by: JOSE BURRIS 01 Nov 2017 1036 ------- ------- ------- ------- -- Med refill / [place] WICHO Cain 11/[address] [place] [address])(W arrior Op Med Cln Tm A Ad) [address] [place] [address])(War rior Op Med Cln Tm A Ad) OUTPATIENT [id number] Feels tired/r un down/we ight gain/giraldo ir/skin very dry [id number] TENZIN HOPE 12/13 Released w/o Limitations [address] [place] [address])(W arrior Op Med Cln Tm A Ad) [address] [place] [address])(War rior Op Med Cln Tm A Ad) TELE CONSULT [id number] Notes Entered by: ELISABET JOHNSON 14 Dec 2017 1050 ------- ------- ------- ------- -- Lab results DARIEN, RAVIN J 12/[address] [place] [address])(W arrior Op Med Cln Tm A Ad) [address] [place] [address])(War rior Op Med Cln Tm A Ad) OUTPATIENT [id number] F/U for low Vitamin D - still feeling tired - decline d Virtual [phone] ANTONIO DIGGS 03/02 Released w/o Limitations [address] [place] [address])(W arrior Op Med Cln Tm A Ad) [address] [place] [address])(Cma ecology) TELE CONSULT [id number] Notes Entered by: SUSAN CONTRERAS 05 Apr 2018 0733 ------- ------- ------- ------- -- Possibl e yeast infecti on and herpes outbrea NICCI Seo 04/05 Referred for Appointment [address] [place] [address])(Geoffrey razo gy) [address] [place] [address])(War rior Op Med Cln Tm A Ad) TELE CONSULT [id number] Notes Entered by: LUCY PATEL 10 May 2018 1432 ------- ------- ------- ------- -- Med Renewal Request / [place] / - ajh NEILRAMIREZWICHO Rodarte Delgado 05/10 Referred for Appointment [address] [place] [address])(W arrior Op Med Cln Tm A Ad) [address] [place] [address])(Cma ecology) OUTPATIENT [id number] dISCUSS treatme nt options for herpes outbrea ks [phone] (pt request ) KARI QUINONES 05/24 Released w/o Limitations [address] [place] [address])(G ynecolo gy) [address] [place] [address])(War rior Op Med Cln Tm A Ad) TELE CONSULT [id number] Notes Entered by: JUAN ALBERTO GRIMM 15 Aug 2018 1042 ------- ------- ------- ------- -- 2nd opinion Ling newton Request /Yessy rodarte/ GEOVANI JARVIS 08/15 Other Not Elsewhere Classified [address] [place] [address])(W arrior Op Med Cln Tm A Ad) [address] [place] [address])(Cma ecology) OUTPATIENT [id number] 3 month f/u medicat ion - [phone] KARI QUINONES 09/12 Released w/o Limitations [address] [place] [address])(G ynecolo gy) [address] [place] [address])(War rior Op Med Cln Tm A Ad) OUTPATIENT [id number] 1 Sinus Drainag e and Pressur e, [phone] ANTONIO DIGGS 11/16 Released w/o Limitations [address] [place] [address])(W arrior Op Med Cln Tm A Ad) [address] [place] [address])(War rior Op Med Cln Tm A Ad) TELE CONSULT [id number] Notes Entered by: PRAKASH BRICENO 16 Nov 2018 1111 ------- ------- ------- ------- -- Pt needs written prescri ption for [facility] pharmac y told her they are out of it EDUARDA MORANIFER Delgado 11/16 Medication Refill Forwarded [facility] [place] [facility] ([place])(W arrior Op Med Cln Tm A Ad) [...] INFUSION SONOHYSTEROGRAPHY (SIS) OR HYSTEROSALPINGOGRAP HY 01/06 [facility] PHARMACOLOGIC MANAGEMENT, INCLUDING PRESCRIPTION AND [...] NUTRITION THERAPY; INITIAL ASSESSMENT AND INTERVENTION, INDIVIDUAL, [id number] WITH THE PATIENT, EACH 15 MINUTES 11/02 [...] FOR CONSULTATION ONLY,NOT FOR CONT CARE)] 10/19 [facility] PSYCHOTHERAPY, 60 MINUTES WITH PATIENT 10/17 DoD SUBSEQ CARE VISIT () [EXCLS:PATIENTS WHO ARE SEEN FOR A CONDITION UNREL TO / CARE (EG,AN UP RESPIR INFECT;PATIENTS SEEN FOR CONSULTATION ONLY,NOT FOR CONT CARE)] 10/13 DoD SUBSEQ CARE VISIT () [EXCLS:PATIENTS WHO ARE SEEN FOR A CONDITION UNREL TO / CARE (EG,AN UP RESPIR INFECT;PATIENTS SEEN FOR CONSULTATION ONLY,NOT FOR CONT CARE)] 10/05 [facility] FAMILY PSYCHOTHERAPY (CONJOINT PSYCHOTHERAPY) (WITH PATIENT PRESENT), 50 MINUTES 10/04 [facility] PSYCHOTHERAPY, 60 MINUTES WITH PATIENT 09/28 [facility] SUBSEQ CARE VISIT () [EXCLS:PATIENTS WHO ARE SEEN FOR A CONDITION UNREL TO / CARE (EG,AN UP RESPIR INFECT;PATIENTS SEEN FOR CONSULTATION ONLY,NOT FOR CONT CARE)] 09/25 [facility] SUBSEQ CARE VISIT () [EXCLS:PATIENTS WHO ARE SEEN FOR A CONDITION UNREL TO / CARE (EG,AN UP RESPIR INFECT;PATIENTS SEEN FOR CONSULTATION ONLY,NOT FOR CONT CARE)] 09/21 [facility] PSYCHOTHERAPY, 60 MINUTES WITH PATIENT 09/21 [facility] SUBSEQ CARE VISIT () [EXCLS:PATIENTS WHO ARE SEEN FOR A CONDITION UNREL TO / CARE (EG,AN UP RESPIR INFECT;PATIENTS SEEN FOR CONSULTATION ONLY,NOT FOR CONT CARE)] 09/15 [facility] PSYCHIATRIC DIAGNOSTIC EVALUATION 09/14 [facility] SUBSEQ CARE VISIT () [EXCLS:PATIENTS WHO ARE SEEN FOR A CONDITION UNREL TO / CARE (EG,AN UP RESPIR INFECT;PATIENTS SEEN FOR CONSULTATION ONLY,NOT FOR CONT CARE)] 09/08 [facility] SUBSEQ CARE VISIT () [EXCLS:PATIENTS WHO ARE SEEN FOR A CONDITION UNREL TO / CARE (EG,AN UP RESPIR INFECT;PATIENTS SEEN FOR CONSULTATION ONLY,NOT FOR CONT CARE)] 08/28 [facility] SUBSEQ CARE VISIT () [EXCLS:PATIENTS WHO ARE SEEN FOR A CONDITION UNREL TO / CARE (EG,AN UP RESPIR INFECT;PATIENTS SEEN FOR CONSULTATION ONLY,NOT FOR CONT CARE)] 08/17 [facility] SUBSEQ CARE VISIT () [EXCLS:PATIENTS WHO ARE SEEN FOR A CONDITION UNREL TO / CARE (EG,AN UP RESPIR INFECT;PATIENTS SEEN FOR CONSULTATION ONLY,NOT FOR CONT CARE)] 07/18 [facility] SUBSEQ CARE VISIT () [EXCLS:PATIENTS [...] OUTPATIENT FACILITY, APPROXIMATELY 20 TO 30 MINUTES [id number] WITH THE PATIENT 01/31 [facility]D INDIVIDUAL PSYCHOTHERAPY, INSIGHT ORIENTED, BEHAVIOR MODIFYING AND/OR SUPPORTIVE, IN AN OFFICE OR OUTPATIENT FACILITY, APPROXIMATELY 45 TO 50 MINUTES [id number] WITH THE PATIENT 01/10 [facility] PSYCHIATRIC DIAGNOSTIC INTERVIEW EXAMINATION 01/06 DoD URINE TEST, BY VISUAL COLOR COMPARISON [...] DoD REMOVAL OF INTRAUTERINE DEVICE (IUD) 01/14 DoD DETERMINATION OF REFRACTIVE STATE 12/31 DoD TELE [...] FOR CONSULTATION ONLY,NOT FOR CONT CARE)] 06/11 [facility] SUBSEQ CARE VISIT () [EXCLS:PATIENTS WHO ARE SEEN FOR A CONDITION UNREL TO / CARE (EG,AN UP RESPIR INFECT;PATIENTS SEEN FOR CONSULTATION ONLY,NOT FOR CONT CARE)] 06/03 [facility] INFLUENZA VIRUS VACCINE, TRIVALENT (IIV3), SPLIT VIRUS, 0.5 ML DOSAGE, FOR INTRAMUSCULAR USE 05/16 [facility] SUBSEQ CARE VISIT () [EXCLS:PATIENTS WHO ARE SEEN FOR A CONDITION UNREL TO / CARE (EG,AN UP RESPIR INFECT;PATIENTS SEEN FOR CONSULTATION ONLY,NOT FOR CONT CARE)] 05/16 [facility] SUBSEQ CARE VISIT () [EXCLS:PATIENTS WHO ARE SEEN FOR A CONDITION UNREL TO / CARE (EG,AN UP RESPIR INFECT;PATIENTS SEEN FOR CONSULTATION ONLY,NOT FOR CONT CARE)] 04/16 [facility] SUBSEQ CARE VISIT () [EXCLS:PATIENTS WHO ARE SEEN FOR A CONDITION UNREL TO / CARE (EG,AN UP RESPIR INFECT;PATIENTS SEEN FOR CONSULTATION ONLY,NOT FOR CONT CARE)] 03/25 [facility] SUBSEQ CARE VISIT () [EXCLS:PATIENTS WHO ARE SEEN FOR A CONDITION UNREL TO / CARE (EG,AN UP RESPIR INFECT;PATIENTS SEEN FOR CONSULTATION ONLY,NOT FOR CONT CARE)] 02/20 [facility] SUBSEQ CARE VISIT () [EXCLS:PATIENTS WHO ARE SEEN FOR A CONDITION UNREL TO / CARE (EG,AN UP RESPIR INFECT;PATIENTS SEEN FOR CONSULTATION ONLY,NOT FOR CONT CARE)] 01/23 [facility] INDIVIDUAL PSYCHOTHERAPY, INSIGHT ORIENTED, BEHAVIOR MODIFYING AND/OR SUPPORTIVE, IN AN OFFICE OR OUTPATIENT FACILITY, APPROXIMATELY 20 TO 30 MINUTES [id number] WITH THE PATIENT 01/02 [facility] SUBSEQ CARE VISIT () [EXCLS:PATIENTS WHO ARE SEEN FOR A CONDITION UNREL TO / CARE (EG,AN UP RESPIR INFECT;PATIENTS SEEN FOR CONSULTATION ONLY,NOT FOR CONT CARE)] 01/02 [facility] URINE TEST, BY VISUAL COLOR COMPARISON METHODS 11/02 [facility] TOBACCO USE CESSATION INTERVENTION, COUNSELING (COPD, CAP, CAD, ASTHMA) (DM) (PV) 10/03 [facility] SCREENING PAPANICOLAOU SMEAR; OBTAINING, PREPARING AND CONVEYANCE OF CERVICAL OR VAGINAL SMEAR TO LABORATORY 09/18 DoD HEPATITIS B VACCINE (HEPB), ADULT DOSAGE, 3 DOSE SCHEDULE, FOR INTRAMUSCULAR USE 07/05 [facility] HEPATITIS B VACCINE (HEPB), ADULT DOSAGE, 3 DOSE SCHEDULE, FOR INTRAMUSCULAR USE 04/04 [facility] Ultrasound Obstetric Limited Evaluation Ultrasound Obstetric Limited Evaluation 08387 05/25 GUERRERO DWYER [facility] OB Services Antepartum Care Only Subsequent Single Visit OB Services Antepartum Care Only Subsequent Single Visit 0502F 05/25 ZACK DWYERILY Reynaldo [facility] Ultrasound Trans[place] [address] 05/05 GIOVANNI CLEMENTINA K [facility] OB Services Antepartum Care Only Subsequent Single Visit OB Services Antepartum Care Only Subsequent Single Visit 0502F 05/05 CLEMENTINA DAVILA [facility] Ultrasound Trans[place] [address] 05/02 CLEMENTINA DAVILA [facility] OB Services Antepartum Care Only First Visit, With Report OB Services Antepartum Care Only First Visit, With Report 0500F 05/02 CLEMENTINA DAVILA [facility] Non-Physician Phone Call To Patient/Provider Brief (5-10min) Non-Physician Phone Call To Patient/Provider Brief (5-10min) 74722 04/28 EB DOMINGO [facility] Non-Physician Phone Call To Patient/Provider Brief (5-10min) Non-Physician Phone Call To Patient/Provider Brief (5-10min) 04094 03/09 JODIE RODRIGUEZ [facility] Non-Physician Phone Call To Patient/Provider Brief (5-10min) Non-Physician Phone Call To Patient/Provider Brief (5-10min) 24761 03/03 JODIE RODRIGUEZ [facility] Electrocardiogram Electrocardiogram 28300 02/21 RAHUL SCHMITT [facility] Psychiatric Evaluation Review of Records and Reports Psychiatric Evaluation Review of Records and Reports 85639 11/14 WICHO SOMMERS [facility] Non-Physician Phone Call To Pt/Provider Intermed (11-20 min) Non-Physician Phone Call To Pt/Provider Intermed (11-20 min) 74016 06/22 JE WHITFIELD [facility] Psychiatric Therapy Individual Approximately 20-30 Minutes Psychiatric Therapy Individual Approximately 20-30 Minutes 81889 01/31 WICHO SOMMERS [facility] Social Work Individual Outpatient Counseling 45-50 Minutes Social Work Individual Outpatient Counseling 45-50 Minutes 32400 01/10 SALOMÓN OLIVAS [facility] Psychiatric Evaluation Comprehensive Examination Psychiatric Evaluation Comprehensive Examination 93618 01/06 KEVIN THURMAN [facility] Test Test 61299 08/05 KELSIE INIGUEZ [facility] Rapid Antigen Identification Streptococcus Group A Beta Hemolytic Rapid Antigen Identification Streptococcus Group A Beta Hemolytic 66026 08/05 MONI BOSS [facility] Non-Physician Phone Call To Patient/Provider Brief (5-10min) Non-Physician Phone Call To Patient/Provider Brief (5-10min) 51703 03/31 GENA FRANKS [facility] Gynecologic Services Intrauterine Device (IUD) Removal Gynecologic Services Intrauterine Device (IUD) Removal 29758 01/22 BRIE CRUZ [facility] Determination Of Refractive State Determination Of Refractive State 21284 12/31 LUZ MUHAMMAD [facility] Ophthalmological New Patient Start Comprehensive Care Ophthalmological New Patient Start Comprehensive Care 61048 12/31 LUZ MUHAMMAD [facility] Non-Physician Phone Call To Patient/Provider Brief (5-10min) Non-Physician Phone Call To Patient/Provider Brief (5-10min) 21928 12/19 VASU CARPENTER [facility] Influenza Virus Vaccine Live Intranasal 08/29 LEXY BRICENO [facility] Immunization Administration One Vaccine Immunization Administration One Vaccine 33260 08/29 LEXY BRICENO [facility] Gynecologic Services Intrauterine Device (IUD) Insertion Gynecologic Services Intrauterine Device (IUD) Insertion 64501 08/20 BRIE CRUZ [facility] Non-Physician Phone Call To Patient/Provider Brief (5-10min) Non-Physician Phone Call To Patient/Provider Brief (5-10min) 55830 08/14 ALDO DAY [facility] Obstetrical Services Care Visit Obstetrical Services Care Visit 0503F 08/06 BRIE CRUZ [facility] OB Services Antepartum Care Only Subsequent Single Visit OB Services Antepartum Care Only Subsequent Single Visit 0502F 06/18 JE ARIZA [facility] Vaginal FEDERICO Prep Vaginal FEDERICO Prep 99046 06/11 BRIE CRUZ [facility] Vaginal Wet [place]aginal [place] 58570 06/11 BRIE CRUZ [facility] OB Services Antepartum Care Only Subsequent Single Visit OB Services Antepartum Care Only Subsequent Single Visit 0502F 06/11 BRIE CRUZ [facility] OB Services Antepartum Care Only Subsequent Single Visit OB Services Antepartum Care Only Subsequent Single Visit 0502F 06/03 JE ARIZA [facility] Immunization Administration One Vaccine Immunization Administration One Vaccine 01974 05/16 AL TALBOT [facility] Influenza Split Virus Vaccine Age 3+ Years Intramuscular 05/16 AL TALBOT [facility] OB Services Antepartum Care Only Subsequent Single Visit OB Services Antepartum Care Only Subsequent Single Visit 0502F 04/16 CESARIO JEFFERY [facility] OB Services Antepartum Care Only Subsequent Single Visit OB Services Antepartum Care Only Subsequent Single Visit 0502F 03/25 MARGARETTE TABARES [facility] OB Services Antepartum Care Only Subsequent Single Visit OB Services Antepartum Care Only Subsequent Single Visit 0502F 02/20 ZACK TOWNSEND [facility] OB Services Antepartum Care Only Subsequent Single Visit OB Services Antepartum Care Only Subsequent Single Visit 0502F 01/23 JE LUNA [facility] Psychiatric Therapy Individual Approximately 20-30 Minutes Psychiatric Therapy Individual Approximately 20-30 Minutes 93072 01/02 YARITZA ORTIZ [facility] OB Services Antepartum Care Only Subsequent Single Visit OB Services Antepartum Care Only Subsequent Single Visit 0502F 01/02 JE LUNA [facility] Intervention And Counseling On Ce ation Of Tobacco Use Intervention And Counseling On Cessation Of Tobacco Use 4000F 10/03 MARGARETTE TABARES [facility] Screening papanicolaou smear; obtaining, preparing and conveyance of cervical or vaginal smear to laboratory 09/18 WANDA FELICIANO [facility] Hepatitis B Vaccine (Active); 20 Years and Above 07/05 ADELINE GU [facility] Immunization Administration One Vaccine Immunization Administration One Vaccine 23118 07/05 ADELINE GU [facility] Hepatitis B Vaccine (Active); 20 Years and Above 04/04 ILA GARCIA DoD Immunization Administration One Vaccine Immunization Administration One Vaccine 37678 04/04 ILA GARCIA [facility] Non-Physician Phone Call To Patient/Provider Brief (5-10min) Non-Physician Phone Call To Patient/Provider Brief (5-10min) 65165 11/16 MAUDE MORA [facility] Non-Physician Phone Call To Patient/Provider Brief (5-10min) Non-Physician Phone Call To Patient/Provider Brief (5-10min) 29360 08/15 GEOVANI JARVIS [facility] Disease management program, follow-up/christofer e ment 05/17 WICHO RUCKER [facility] Non-Physician Phone Call To Patient/Provider Brief (5-10min) Non-Physician Phone Call To Patient/Provider Brief (5-10min) 71186 04/05 NICCI ALVAREZ [facility] Disease management program, follow-up/christofer e ment 11/01 TENZIN HOPE [facility] Disease management program, follow-up/christofer e ment 10/22 CANDI ARNOLD [facility] Non-Physician Phone Call To Patient/Provider Brief (5-10min) Non-Physician Phone Call To Patient/Provider Brief (5-10min) 36022 10/22 URI SARABIA [facility] Non-Physician Phone Call To Patient/Provider Brief (5-10min) Non-Physician Phone Call To Patient/Provider Brief (5-10min) 17042 10/12 NICCI ALVAREZ [facility] Non-Physician Phone Call To Patient/Provider Brief (5-10min) Non-Physician Phone Call To Patient/Provider Brief (5-10min) 96155 09/13 DARIENRAVIN J [facility] Non-Physician Phone Call To Patient/Provider Brief (5-10min) Non-Physician Phone Call To Patient/Provider Brief (5-10min) 47801 09/10 DARIEN, RAVIN J [facility] Vaginal Wet [place] Vaginal [place] 69078 07/20 AMAYA BAEZ [facility] Non-Physician Phone Call To Patient/Provider Brief (5-10min) Non-Physician Phone Call To Patient/Provider Brief (5-10min) 76974 06/29 DARIEN, RAVIN J [facility] Disease management program, follow-up/christofer e ment 04/16 PLACIDO MACHUCA [facility] Non-Physician Phone Call To Patient/Provider Brief (5-10min) Non-Physician Phone Call To Patient/Provider Brief (5-10min) 79849 02/25 RAVIN LEDEZMA [facility] Psychiatric Evaluation Review of Records and Reports Psychiatric Evaluation Review of Records and Reports 00859 09/22 ZACHARY AVERY [facility] Gynecologic Services Intrauterine Device (IUD) Insertion Gynecologic Services Intrauterine Device (IUD) Insertion [id number] 04/21 KARI QUINONES [facility] Hysterosalpingograp hy With Catheter Contrast Injection Hysterosalpingogra phy With Catheter Contrast Injection 86494 04/14 KARI QUINONES Procedure: A final timeout was performed. Pt [...] was informed of these results. No complications. [facility] Screening papanicolaou smear; obtaining, preparing and conveyance of cervical or vaginal smear to laboratory 03/04 AMAYA BAEZ [facility] Vaginal Wet [place] Vaginal [place] 40482 03/04 AMAYA BAEZ [facility] Hysterosalpingograp hy With Catheter Contrast Injection Hysterosalpingogra phy With Catheter Contrast Injection 24640 01/06 GIANNA STRAUSS [facility] Psychoactive Medication Management Psychoactive Medication Management 04733 11/28 ZACHARY AVERY [facility] Non-Physician Phone Call To Patient/Provider Brief (5-10min) Non-Physician Phone Call To Patient/Provider Brief (5-10min) 83873 10/14 DIMPLE JOHNSON Non-Physician Phone Call To Patient/Provider Brief (5-10min) Non-Physician Phone Call To Patient/Provider Brief (5-10min) 52800 10/10 DIMPLE JOHNSON Conscious Sedation By Dr Performing Service 5 Yrs Or Older Conscious Sedation By Dr Performing Service 5 Yrs Or Older 20334 10/09 PRIYA CHOI [facility] Non-Physician Phone Call To Patient/Provider Brief (5-10min) Non-Physician Phone Call To Patient/Provider Brief (5-10min) 98685 10/03 FAMILIA THOMPSON [facility] Non-Physician Phone Call To Patient/Provider Brief (5-10min) Non-Physician Phone Call To Patient/Provider Brief (5-10min) 46472 10/01 JOE ASH Non-Physician Phone Call To Patient/Provider Brief (5-10min) Non-Physician Phone Call To Patient/Provider Brief (5-10min) 77085 08/26 JOE ASH Non-Physician Phone Call To Patient/Provider Brief (5-10min) Non-Physician Phone Call To Patient/Provider Brief (5-10min) 89508 08/22 MANN COLON [facility] Psych Ther Indiv Interact Appr 20-30 Min W/ Med Eval Manage 06/20 ZACHARY AVERY Psych Ther Indiv Interact Appr 45-50 Min W/ Med Eval Manage 05/17 ZACHARY AVERY Non-Physician Phone Call To Patient/Provider Brief (5-10min) Non-Physician Phone Call To Patient/Provider Brief (5-10min) 42878 04/26 MANN COLON Psych Ther Indiv Interact Appr 45-50 Min W/ Med Eval Manage 04/16 ZACHARY AVERY Vaginal [place] Vaginal [place] 63017 04/11 AMAYA BAEZ [facility] Non-Physician Phone Call To Patient/Provider Brief (5-10min) Non-Physician Phone Call To Patient/Provider Brief (5-10min) 71449 04/10 ANANDA WILLAMS [facility] Psych Ther Indiv Interact Appr 45-50 Min W/ Med Eval Manage 02/18 ZACHARY AVERY Psych Ther Indiv Interact Appr 45-50 Min W/ Med Eval Manage 01/01 ZACHARY AVERY Psych Ther Indiv Interact Appr 45-50 Min W/ Med Eval Manage 11/19 ZACHARY AVERY [facility] Psych Ther Indiv Interact Appr 45-50 Min W/ Med Eval Manage 10/23 ZACHARY AVERY [facility] Non-Physician Phone Call To Patient/Provider Brief (5-10min) Non-Physician Phone Call To Patient/Provider Brief (5-10min) 90202 09/21 MANN COLON [facility] Psych Ther Indiv Interact Appr 45-50 Min W/ Med Eval Manage 09/06 ZACHARY AVERY [facility] Psych Ther Indiv Interact Appr 45-50 Min W/ Med Eval Manage 07/24 ZACHARY AVERY [facility] OB Services Antepartum Care Only Subsequent Single Visit OB Services Antepartum Care Only Subsequent Single Visit 0502F 06/30 CLEMENTINA DAVILA [facility] Psychiatric Therapy Individual Approximately 45-50 Minutes 06/21 CATHY TOMAS [facility] Test Test 77234 06/18 LUISANA DEVLIN MELO [facility] Gynecologic Services Intrauterine Device (IUD) Insertion Gynecologic Services Intrauterine Device (IUD) Insertion 49302 06/18 LUISANA DEVLIN [facility] Psychiatric Therapy Individual Approximately 45-50 Minutes 06/04 CATHY TOMAS [facility] Vaginal Wet [place] Vaginal [place] 52205 06/04 LUISANA DEVLIN MELO [facility] Social Work Individual Outpatient Counseling 45-50 Minutes 05/17 CATHY TOMAS [facility] Psychiatric Therapy Individual Approximately 45-50 Minutes 04/25 CATHY TOMAS [facility] Gynecologic Services Diaphragm Fitting With Instructions Gynecologic Services Diaphragm Fitting With Instructions 43062 02/20 ALYSSA COLÓN [facility] Social Work Individual Outpatient Counseling 45-50 Minutes 01/30 CATHY TOMAS [facility] OB Services Antepartum Care Only Subsequent Single Visit OB Services Antepartum Care Only Subsequent Single Visit 0502F 11/27 CLEMENTINA DAVILA [facility] OB Services Antepartum Care Only Subsequent Single Visit OB Services Antepartum Care Only Subsequent Single Visit 0502F 11/14 GUERRERO DWYER [facility] Non-Physician Phone Call To Patient/Provider Brief (5-10min) Non-Physician Phone Call To Patient/Provider Brief (5-10min) 48277 11/08 BRIANNE, GAYE P [facility] Medical Nutrition Therapy Initial A e ment, Intervention Medical Nutrition Therapy Initial Assessment, Intervention 22916 11/03 REYES LOPEZ [facility] Non-Physician Phone Call To Patient/Provider Brief (5-10min) Non-Physician Phone Call To Patient/Provider Brief (5-10min) 45985 10/30 GAYE DECKER [facility] OB Services Antepartum Care Only Subsequent Single Visit OB Services Antepartum Care Only Subsequent Single Visit 0502F 10/19 ERMIS, GUERRERO B [facility] OB Services Antepartum Care Only Subsequent Single Visit OB Services Antepartum Care Only Subsequent Single Visit 0502F 10/13 ERMIS, GUERRERO B [facility] OB Services Antepartum Care Only Subsequent Single Visit OB Services Antepartum Care Only Subsequent Single Visit 0502F 10/06 ERMIS, GUERRERO B [facility] Psychiatric Therapy Family (Conjoint) 10/04 CATHY TOMAS [facility] OB Services Antepartum Care Only Subsequent Single Visit OB Services Antepartum Care Only Subsequent Single Visit 0502F 09/25 ERMIS, GUERRERO B [facility] OB Services Antepartum Care Only Subsequent Single Visit OB Services Antepartum Care Only Subsequent Single Visit 0502F 09/21 THELMA HA A [facility] OB Services Antepartum Care Only Subsequent Single Visit OB Services Antepartum Care Only Subsequent Single Visit [id number] 09/15 ERMIS, GUERRERO B DoD Psychiatric Evaluation Psychiatric Evaluation [id number] 09/15 CATHY TOMAS DoD OB Services Antepartum Care Only Subsequent Single Visit OB Services Antepartum Care Only Subsequent Single Visit [id number] 09/08 PRIYA CHOI DoD OB Services Antepartum Care Only Subsequent Single Visit OB Services Antepartum Care Only Subsequent Single Visit [id number] 08/28 ERMIS, GUERRERO B DoD OB Services Antepartum Care Only Subsequent Single Visit OB Services Antepartum Care Only Subsequent Single Visit [id number] 08/17 ERMIS, GUERRERO B DoD OB Services Antepartum Care Only Subsequent Single Visit OB Services Antepartum Care Only Subsequent Single Visit [id number] 07/18 ERMIS, GUERRERO B DoD OB Services Antepartum Care Only Subsequent Single Visit OB Services Antepartum Care Only Subsequent Single Visit 0502F 07/06 VIOLET WALKER DoD Social History Combined list of available smoking, tobacco, and other social history from [facility] facilities. Social History Type Response Date Comment Sourc e Sexual Orientation Ambula tory Pharmacy Gender identity Ambulator y Pharmacy Sex Representation Female (finding) Unknown Organization This section is an empty soc ial history section. [facility] Assessment and Plan Combined list of future care activities from [facility] facilities (e.g., assessment and plan notes, appointments, orders, and referrals). Additional future care activities may be listed in the Plan of Care section. Result Assessment and Plan Date Source Assessment and Plan No data available for this section 01/04/2025 Ambulatory Pharmacy Functional Status Combined list of recent functional and cognitive assessments recorded at [facility] Functional Tama Measurement (FIM) Scale: 1 = Total Assistance (Subject = 0% +), 2 = Maximal Assistance (Subject = 25% +), 3 = Moderate Assistance (Subject = 50% +), 4 = Minimal Assistance (Subject = 75% +), 5 = Supervision, 6 = Modified Tama (Device), 7 = Complete Tama (Timely, Safely). Assessment Date/Time Source Assessment Type Assessment Skill Assessment Score Assessment Details No data available for this section
[2025-01-04 13:40] VITALS: O2SAT 100
--- NOTE | 2025-01-04 14:54 | ED.GENADULT ---
HPI - General Adult General Chief complaint: Allergic Reaction Stated complaint: delayed reaction to bee sting Time Seen by Provider: 01/04/25 13:57 History of Present Illness HPI narrative: Patient is a 49-year-old female who presents ER with pain to her right head. She was stung by bee couple days ago. She has had increased pain it is going down behind her ear. It made her briefly think she might not be able breathe. There drainage. Mild ear pain. Related Data Home Medications ?Medication ?Instructions ?Recorded ?Confirmed ?Last Taken ?Type amitriptyline 25 mg tablet 25 mg PO HS 12/04/21 12/07/24 12/06/24 History albuterol sulfate 90 mcg/actuation 2 puff inhalation Q6H PRN 10/05/24 12/05/24 Unknown History aerosol inhaler shortness of breath or wheezing hydrocodone 5 mg-acetaminophen 325 1 tablet PO Q6H PRN pain 12/05/24 12/05/24 Unknown History mg tablet Allergies Allergy/AdvReac Type Severity Reaction Status Date / Time escitalopram (From Lexapro) Allergy Mild Unknown Verified 01/04/25 12:45 metoclopramide (From Reglan) AdvReac Mild Unknown Verified 01/04/25 12:45 sertraline AdvReac Unknown INTENSIFIES Verified 01/04/25 12:45 ANXIETY Review of Systems Constitutional: Constitutional: Reports no additional constitutional complaints ENT: Reports system reviewed and no additional complaints, except as documented Integumentary/Breasts: Skin/Breast: Reports system reviewed and no additional complaints, except as docu PMFSH Past Medical History Medical History Obesity Dyspepsia Enterocolitis Belching Gas bloat syndrome Irritable bowel syndrome with diarrhea History of migraine Irritable bowel syndrome Surgical History Surgical History No pertinent past surgical history Social History Social History Years smoked: 23 Smoking status: Current every day smoker Tobacco type: cigarettes Alcohol intake: current Substance use type: marijuana Other substance usage details: Every now and then for sleep Living arrangements: with family Spiritual care concerns: No Exam Narrative: GENERAL: Well-appearing, well-nourished, and in no acute distress. HEAD: Normocephalic, atraumatic. Mild tenderness right parietal area with some posterior cervical chain lymphadenopathy on the right. ENT: Mucous membranes moist. TMs normal bilaterally. EXTREMITIES: Normal range of motion. No edema. NEURO: Alert and oriented x3. PSYCH: Normal mood and affect. Course Course Emergency Course: Patient given reassurance. Recommend scheduled ibuprofen for pain. No allergic reaction only a localized skin reaction. Vital Signs Vital signs: Vital Signs Temperature 97.6 F 01/04/25 12:42 Pulse Rate 72 01/04/25 12:42 Respiratory Rate 16 01/04/25 12:42 Blood Pressure 122/52 L 01/04/25 12:42 Pulse Oximetry 100 01/04/25 12:42 Oxygen Delivery Room Air 01/04/25 12:42 Temperature 97.6 F 01/04/25 12:42 Pulse Rate 72 01/04/25 12:42 Respiratory Rate 16 01/04/25 12:42 Blood Pressure 122/52 L 01/04/25 12:42 Pulse Oximetry 100 01/04/25 13:40 Oxygen Delivery Room Air 01/04/25 13:40 Medical Decision Making Vital Signs Vital Signs: Vital Signs Temperature 97.6 F 01/04/25 12:42 Pulse Rate 72 01/04/25 12:42 Respiratory Rate 16 01/04/25 12:42 Blood Pressure 122/52 L 01/04/25 12:42 Pulse Oximetry 100 01/04/25 12:42 Oxygen Delivery Room Air 01/04/25 12:42 Temperature 97.6 F 01/04/25 12:42 Pulse Rate 72 01/04/25 12:42 Respiratory Rate 16 01/04/25 12:42 Blood Pressure 122/52 L 01/04/25 12:42 Pulse Oximetry 100 01/04/25 13:40 Oxygen Delivery Room Air 01/04/25 13:40 Discharge Plan Discharge Clinical Impression: Bee sting reaction Patient Disposition: Home Condition: Stable Instructions: Insect Bite or Sting (ED) Additional Instructions: Return to the ER if you have fever over 101F, you cannot keep down food/water, or you have other concerns. Patient Language: Hungarian Prescriptions: New ibuprofen 600 mg tablet 600 mg PO TID Qty: 20 0RF No Action amitriptyline 25 mg tablet 25 mg PO HS albuterol sulfate 90 mcg/actuation HFA aerosol inhaler 2 puff INHALATION Q6H PRN (Reason: shortness of breath or wheezing) hydrocodone-acetaminophen 5-325 mg tablet 1 tablet PO Q6H PRN (Reason: pain) hydrocodone-acetaminophen 5-325 mg tablet 1 tablet PO Q4H PRN (Reason: pain) Qty: 10 0RF Follow-up/Referrals: Zeinab,Sandie Gr MD [Primary Care Provider] - 1 Week
[2025-01-04 15:11] VITALS: BP 125/67; PULSE 61; RESP 18; O2SAT 100
--- OUTSIDE RECORDS SUMMARY | 2025-01-04 15:28 | XMS_ITS | Continuity of Care Document ---
Author Name [facility] Organization [facility] Care Team Providers Care Professor Of Art Name Role Phone [facility] Unavailable Unavailable Problems [...] pain in the right hip Inactive Condition [facility] visit for: exam 2nd trimester (at ____weeks) Inactive Condition DoD diarrhea Inactive Condition DoD SECONDARY INSOMNIA Inactive Condition Do D Inquiry And Counseling: Contraceptive Practices Active Condition [facility] ELDERLY MULTIGRAVIDA (35 or older at delivery) Inactive Condition DoD UPPER RESPIRATORY INFECTION Inactive Condition DoD BACKACHE Active Condition DoD COMMON COLD Inactive Condition DoD CONSTIPATION Inactive Condition [facility] visit for: exam high-risk elderly multigravida Inactive Condition DoD constipation Inactive Condition DoD nausea Inactive Condition DoD Urine Test Inactive Condition DoD RHINOSINUSITIS Inactive Condition [facility] Outpatient Physician Consultation Inactive Condition DoD CONDITIONS INFLUENCING HEALTH STATUS Active Condition DoD CERVICALGIA Active Condition [facility] visit for: screening exam for malignant neoplasm cervix Inactive Condition DoD CYSTITIS ACUTE Inactive Condition DoD FEMALE PELVIC PAIN Active Condition DoD ENDOMETRIOSIS Active Condition DoD nonmenstrual bleeding Active Condition DoD Test Inactive Condition DoD ACUTE BRONCHITIS Inactive Condition [facility] visit for: issue repeat prescription for [...] NORMAL CHECKUP - THIRD TRIMESTER Inactive Condition [facility] visit for: exam high-risk Inactive Condition DoD lower back pain Inactive Condition DoD ANXIETY DISORDER NOS Inactive Condition DoD Vaccines Prophylactic Need Against Influenza Inactive Condition DoD current smoker Active Condition DoD Oral Glucose Tolerance Test 2-Hour Value Between 140 - 200 Inactive Condition [facility] NORMAL CHECKUP - SECOND TRIMESTER Inactive Condition DoD NORMAL Inactive Condition DoD PSYCHIATRIC DIAGNOSIS OR CONDITION DEFERRED ON AXIS I Inactive Condition DoD DEPRESSION Inactive Condition DoD Inactive Condition DoD HYPEREMESIS GRAVIDARUM Inactive Condition DoD Patient Counseling: Inactive Condition D Supervision Of Normal Inactive Condition [facility] visit for: exam 1st trimester (at ____weeks) Inactive Condition DoD nausea with vomiting Inactive Condition [facility] IRRITABLE BOWEL SYNDROME Active Condition [facility] visit for: administrative purpose Inactive Condition [facility] smoking cigarettes Active Condition [facility] DYSMENORRHEA Active Condition DoD DYSFUNCTIONAL UTERINE BLEEDING Active Condition DoD feared medical condition not demonstrated Inactive Condition [facility] visit for: screening exam malignant neoplasm breast Inactive Condition [facility]D ROUTINE GYNECOLOGICAL EXAM WITH CERVICAL PAP SMEAR Inactive Condition DoD VAGINAL DISCHARGE Inactive Condition DoD DYSPAREUNIA Active Condition DoD pain during urination (dysuria) Active Condition DoD DERMATOPHYTOSIS TINEA PEDIS Inactive Condition DoD DERMATOPHYTOSIS TINEA MANUUM Active Condition [facility] visit for: issue repeat prescription Inactive Condition [facility] Patient Education - Medication Inactive Condition DoD Need For Vaccination Hepatitis B Inactive Condition DoD anxiety Inactive Condition Pt with anxiety disorder that has failed every SSRI and Wellbutrin and per patient. Pt does not tolerate klonopin. Will give trial of low dose Xanax. Follow up as needed. [facility] NORMAL PRE-EMPLOYMENT SCREENING EXAMINATION Inactive Condition [...] LUPIN PHARMACEU, 8.5 g CANISTER Cancele d [id number] : 2023 0 Pharmac y Data Transac tion Service Facilit y AMITRIPTYLI NE HCL (amitriptyl ine HCl), 25 MG, TABLET, ORAL, UNICHEM PHARMAC, 1000 ea. BOTTLE Active [id number] 2023 90 Pharmac y Data Transac tion Service Facilit y AMITRIPTYLI NE HCL (amitriptyl ine HCl), 25 MG, TABLET, ORAL, UNICHEM PHARMAC, 1000 ea. BOTTLE Active [id number] 2023 90 Pharmac y Data Transac tion Service Facilit y AMITRIPTYLI NE HCL (amitriptyl ine HCl), 25 MG, TABLET, ORAL, UNICHEM PHARMAC, 1000 ea. BOTTLE Active [id number] 2023 90 Pharmac y Data Transac tion Service Facilit y CYCLOBENZAP RINE HCL (cyclobenza mitchell HCl), 10 MG, TABLET, ORAL, UNICHEM PHARMAC, 1000 ea. BOTTLE Cancele d [id number] : 2023 0 Pharmac y Data Transac tion Service Facilit y CYCLOBENZAP RINE HCL (cyclobenza mitchell HCl), 10 MG, TABLET, ORAL, UNICHEM PHARMAC, 1000 ea. BOTTLE Active [id number] 2023 14 Pharmac y Data Transac tion Service Facilit y DICYCLOMINE HCL (DICYCLOMIN E HCL), 10MG, CAPSULE, ORAL, TORREZ LABS, 100 ea. BOTTLE Cancele d [id number] : 2023 0 Pharmac y Data Transac tion Service Facilit y DICYCLOMINE HCL (DICYCLOMIN E HCL), 10MG, CAPSULE, ORAL, TORREZ LABS, 100 ea. BOTTLE Active [id number] 2023 240 Pharmac y Data Transac tion Service Facilit y FLUOXETINE HCL (FLUOXETINE HCL), 20MG, CAPSULE, ORAL, [employer], 1000 ea. BOTTLE Active [id number] 2023 90 Pharmac y Data Transac tion Service Facilit y IBUPROFEN (ibuprofen) , 800 MG, TABLET, ORAL, AUROBINDO PHARM, 500 ea. BOTTLE Cancele d [id number] : 2023 0 Pharmac y Data Transac tion Service Facilit y IBUPROFEN (ibuprofen) , 800 MG, TABLET, ORAL, AUROBINDO PHARM, 500 ea. BOTTLE Active [id number] 2023 20 Pharmac y Data Transac tion Service Facilit y PANTOPRAZOL E SODIUM (PANTOPRAZO LE SODIUM), 20 MG, TABLET DR, ORAL, MYLAN, 90 ea. BOTTLE Cancele d [id number] : 2023 0 Pharmac y Data Transac tion Service Facilit y PANTOPRAZOL E SODIUM (PANTOPRAZO LE SODIUM), 20 MG, TABLET DR, ORAL, MYLAN, 90 ea. BOTTLE Active [id number] 2023 30 Pharmac y Data Transac tion Service Facilit y phentermine 15 mg capsule See Instruct ions, # 30 EA, 0 total refill(s ), Hard Stop Complet ed 09/21/2023 3 2023 30.0 Ambulat ory Pharmac y SUMATRIPTAN SUCCINATE (sumatripta n succinate), 100 MG, TABLET, ORAL, 'S LAB, 27 ea. BLIST PACK Active [id number] 2023 9 Pharmac y Data Transac tion Service Facilit y SUMATRIPTAN SUCCINATE (sumatripta n succinate), 100 MG, TABLET, ORAL, 'S LAB, 27 ea. BLIST PACK Cancele d [id number] : 2023 0 Pharmac y Data Transac tion Service Facilit y SUMATRIPTAN SUCCINATE (sumatripta n succinate), 100 MG, TABLET, ORAL, 'S LAB, 27 ea. BLIST PACK Active [id number] 2023 9 Pharmac y Data Transac tion Service Facilit y SUMATRIPTAN SUCCINATE (sumatripta n succinate), 100 MG, TABLET, ORAL, 'S LAB, 27 ea. BLIST PACK Active [id number] 2023 9 Pharmac y Data Transac tion Service Facilit y topiramate [Exelan] 50 mg tablet See Instruct ions, # 90 EA, 0 total refill(s ), Hard Stop Complet ed 03/24/2024 3 2023 90.0 Ambulat ory Pharmac y TRAZODONE HCL (trazodone HCl), 50 MG, TABLET, ORAL, AUROBINDO PHARM, 100 ea. BOTTLE Cancele d [id number] : 2023 0 Pharmac y Data Transac tion Service Facilit y TRAZODONE HCL (trazodone HCl), 50 MG, TABLET, ORAL, AUROBINDO PHARM, 100 ea. BOTTLE Cancele d [id number] : 2023 0 Pharmac y Data Transac tion Service Facilit y TRAZODONE HCL (trazodone HCl), 50 MG, TABLET, ORAL, AUROBINDO PHARM, 100 ea. BOTTLE Active [id number] 2023 30 Pharmac y Data Transac tion Service Facilit y TRAZODONE HCL (trazodone HCl), 50 MG, TABLET, ORAL, AUROBINDO PHARM, 100 ea. BOTTLE Active [id number] 2023 30 Pharmac y Data Transac tion Service Facilit y TRAZODONE HCL (trazodone HCl), 50 MG, TABLET, ORAL, AUROBINDO PHARM, 100 ea. BOTTLE Active [id number] 2023 30 Pharmac y Data Transac [...] } Drug allergy (disorder) Rash active [address] [place] [address] ([facility]) OTHER {Cla } Propensity to adverse reactions to drug Rash Active 3 LATEX Unknown Organiza tion PHENERGAN (PROMETHAZIN E HCL) Drug allergy (disorder) Unknown active [address] [place] [address]) promethazine Propensity to adverse reactions to drug Unknown Active 4 Unknown Organiza tion PROZAC (FLUOXETINE HCL) Drug allergy (disorder) Diarrhea active [address] [place] [address]) REGLAN (METOCLOPRAM JENNY HCL) Drug allergy (disorder) Depression active [address] [place] [address]) sertraline Propensity to adverse reactions to drug Depression Active 4 Unknown Organiza tion ZOLOFT (SERTRALINE HCL) Drug allergy (disorder) Depression active [address] [place] [address]) Immunizations Combined list of available immunizations from the Department of Defense and Veterans Affairs facilities. Immunization Series Date Given Administered By Site Reaction Lot Number CVX Code Drug E Learning Coordinator Status Comments Source COVID-19, mRNA, LNP-S, PF, 100 mcg or 50 mcg dose 2021 Adi SÁNCHEZ [employer] (MOD) Not Given COVID-19, mRNA, LNP-S, PF, 100 mcg or 50 mcg dose [facility] influenza, injectable, quadrivalent- pf 2017 zzLef t Arm [id number] 150 [employer] complet ed influenza , injectabl e, quadrival ent-pf 05/11/18 Given Ambulat ory Pharmac y Influenza, injectable, quadrivalent, preservative free 1 2017 Unknown, Provider [id number] 150 [employer] (SEQ) complet ed Influenza , injectabl e, quadrival ent, preservat rachel free DoD influenza, seasonal, injectable-pf 2015 zzLef t Arm [id number] 140 [employer] complet ed influenza , seasonal, injectabl e-pf 07/15/16 Given Ambulat ory Pharmac y Influenza, seasonal, injectable, preservative free 1 2015 Unknown, Provider [id number] 140 [employer] (SEQ) complet ed Influenza , [...] DoD tetanus, diphtheria, acellular pertu is 2013 [facility] [id number] 115 [employer] complet ed tetanus, diphtheri a, acellular pertussis 11/20/13 Given Ambulat ory Pharmac y tetanus toxoid, reduced diphtheria toxoid, and acellular pertu is vaccine, adsorbed 1 2013 Unknown, Provider [id number] 115 [facility] ([facility]) complet ed tetanus toxoid, reduced diphtheri a toxoid, and acellular pertussis vaccine, adsorbed DoD influenza, seasonal, injectable-pf 2013 zzLef t Arm [id number] 140 sanofi pasteur complet ed influenza , seasonal, injectabl e-pf 08/28/13 Given Ambulat ory Pharmac y Influenza, seasonal, injectable, preservative free 5 2013 Unknown, Provider [id number] 140 Sanofi Pasteur (PMC) complet ed Influenza , seasonal, injectabl e, preservat rachel free DoD influenza, seasonal, injectable-pf 2011 [facility] Arm [id number] 140 sanofi pasteur complet ed influenza , seasonal, injectabl e-pf 06/10/12 Given Ambulat ory Pharmac y Influenza, seasonal, injectable, preservative free 4 2011 Unknown, Provider [id number] 140 Sanofi Pasteur (PMC) complet ed Influenza , seasonal, injectabl e, preservat rachel free DoD influenza, seasonal, injectable-pf 2010 zzLef t Arm [id number] 140 sanofi pasteur complet ed influenza , seasonal, injectabl e-pf 06/15/11 Given Ambulat ory Pharmac y Influenza, seasonal, injectable, preservative free 3 2010 Unknown, Provider [id number] 140 Sanofi Pasteur (PMC) complet ed Influenza , seasonal, injectabl e, preservat rachel free DoD influenza virus vaccine,split 2009 zzRig ht Arm [id number] 15 sanofi pasteur complet ed influenza virus vaccine,s plit 06/30/10 Given Ambulat ory Pharmac y influenza virus vaccine, split virus (incl. purified surface antigen)-reti red CODE 1 2009 Unknown, Provider [id number] 15 Sanofi Pasteur (PMC) complet ed influenza virus vaccine, split virus (incl. purified surface antigen)- retired CODE DoD Novel Influenza-H1N 1-09,live virus,nasal 2009 [id number] 125 [employer] comple t ed Novel Influenza -[id number], live virus,rafal al 08/29/09 Given Ambulat ory Pharmac y Novel Influenza-H1N 1-09, live virus for nasal administratio n 1 2009 Unknown, Provider [id number] 125 [employer] (MED) complet ed Novel Influenza -R5H0-89, live virus for nasal administr ation DoD influenza virus vaccine,split 2008 zzLef t Arm [id number] 15 sanofi pasteur complet ed influenza virus vaccine,s plit 05/16/09 Given Ambulat ory Pharmac y influenza virus vaccine, split virus (incl. purified surface antigen)-reti red CODE 1 2008 Unknown, Provider [id number] 15 Sanofi Pasteur (PMC) complet ed [...] to the last 18 months, not all [facility] inpatient encounters are included; 2) Encounters from the Department of Defense facilities going backup to 280 months. Location Location Details Encounter Type Encounter Number Reason For Visit Attending Provider ADM Date DC Date Status Disposition Source [address] [place] [address] [place] SAPP [facility]Sco tt [facility] Tm Blue) OUTPATIENT [id number] [phone] physica l to go to school for medical assista nt ALDO DAY 04/04 Released w/o Limitations [address] [place] [address] [place] KELSEYB [facility])(S cott [facility] Tm Blue) [address] [place] [address] [place] B [facility])(Sco tt [facility] Tm Blue) TELE CONSULT [id number] Medicat ion Request HARDY GLOVER 05/[address] [place] [address] [place] B [facility])(S cott [facility] Tm Blue) [address] [place] [address] [place] LAUREB [facility])(Sco tt [facility] Tm Blue) OUTPATIENT [id number] rash on hand... .[id number] 64 ADELINE GU 07/05 Released w/o Limitations [address] [place] [address] [place] LAUREB [facility])(S cott [facility] Tm Blue) [address] [place] [address] [place] LAUREB [facility])(Sco tt [facility] Tm Blue) TELE CONSULT [id number] Medicat ion Request ALDO DAY 08/[address] [place] [address] [place] SAPP [facility])(S cott [facility] Tm Blue) [address] [place] [address] [place] LAUREB [facility])(Sco tt [facility] Tm Blue) OUTPATIENT [id number] annual pap.... [id number] WANDA FELICAINO 09/18 Released w/o Limitations [address] [place] [address] [place] [employer] [facility])(S cott [facility] Tm Blue) [address] [place] [address] [place] B [facility])(Telecine Operator ecology) OUTPATIENT [id number] feared medical conditi on not demonst rated MARGARETTE TABARES 10/03 Released w/o Limitations [address] [place] [address] [employer] [facility])(G ynecolo gy) [address] [place] [address] [employer] [facility])(Ob/ Telecine Operator) TELE CONSULT [id number] us and lab results MARGARETTE TABARES 10/[address] [place] [address] [employer] ([facility])(O b/Telecine Operator) [employer] ([facility])(Telecine Operator ecology) OUTPATIENT [id number] preg test CHETNA BARKER 11/02 Released w/o Limitations [employer] ([facility])(G ynecolo gy) [employer] ([facility])(Sco tt [facility] Tm Blue) TELE CONSULT [id number] Medicat ion Request ALDO DAY 11/05 [employer] ([facility])(S cott [facility] Tm Blue) [employer] ([facility])(Sco tt [facility] Fam Res Tm Green) OUTPATIENT [id number] medicat ion/OB questio AFSHIN Martin 11/09 Released w/o Limitations [employer] ([facility])(S cott [facility] Fam Res Tm Green) [employer] ([facility])(Sco tt [facility] Tm Blue) OUTPATIENT [id number] initiat e OB care ANNE HURTADO 11/12 Released w/o Limitations [employer] ([facility])(S cott OF FAM[employer] Tm Blue) [employer] ([facility])(Sco tt [facility] Tm Blue) OUTPATIENT [id number] early pregnan cy; hyperem ADELINE Vidal 11/19 Released w/o Limitations [employer] ([facility])(S cott [facility] Tm Blue) [employer] ([facility])(Ob/ Telecine Operator) OUTPATIENT [id number] transfe r in from [facility] EDC [id number] ZACK TOWNSEND 12/17 Released w/o Limitations [employer] ([facility])(O b/Telecine Operator) [employer] ([facility])(Ob/ Telecine Operator) OUTPATIENT [id number] new ob - edc jul 10 JE LUNA 01/02 Released w/o Limitations [employer] ([facility])(O b/Telecine Operator) [employer] ([facility])(Ob/ Telecine Operator) TELE CONSULT [id number] JE Hoyos 01/03 [employer] ([facility])(O b/Telecine Operator) [employer] ([facility])(Telecine Operator ecology) TELE CONSULT [id number] Needs note from doctor TRUNG HALEY 01/16 [facility] [employer] ([facility])(G ynecolo gy) [employer] ([facility])(Ob/ Telecine Operator) OUTPATIENT [id number] 16 wks edc jul 10 JE LUNA 01/23 Released w/o Limitations [employer] ([facility])(O b/Telecine Operator) [employer] ([facility])(Ob/ Telecine Operator) TELE CONSULT [id number] request ing letter TRUNG HALEY 01/23 [facility] [employer] ([facility])(O b/Telecine Operator) [facility] [employer] ([facility])(Ob/ Telecine Operator) TELE CONSULT [id number] ua symptom s TRUNG HALEY 02/05 [facility] [employer] ([facility])(O b/Telecine Operator) [facility] [employer] ([facility])(Ob/ Telecine Operator) OUTPATIENT [id number] NIC - EDC jul 10 ZACK TOWNSEND 02/20 Released w/o Limitations [facility] [employer] ([facility])(O b/Telecine Operator) [facility] [employer] ([facility])(Ob/ Telecine Operator) TELE CONSULT [id number] JE LUNA 02/28 [facility] [employer] ([facility])(O b/Telecine Operator) [facility] [employer] ([facility])(Ob/ Telecine Operator) TELE CONSULT [id number] OB w/ contrac mary N/KELSIE FELICIANO 03/11 [employer] ([facility])(O b/Telecine Operator) [employer] ([facility])(Ob/ Telecine Operator) OUTPATIENT [id number] nic - edc jul 10 MARGARETTE TABARES 03/25 Released w/o Limitations [employer] ([facility])(O b/Telecine Operator) [employer] ([facility])(Ob/ Telecine Operator) TELE CONSULT [id number] request for med refill CESARIO JEFFERY Aman 04/09 [employer] ([facility])(O b/Telecine Operator) [employer] ([facility])(Ob/ Telecine Operator) TELE CONSULT [id number] lab result MARGARETTE TABARES 04/12 [facility] [employer] ([facility])(O b/Telecine Operator) [employer] ([facility])(Ob/ Telecine Operator) OUTPATIENT [id number] nic - edc jul 10 JOSE DCESARIO MORRISON Aman 04/16 Released with Work/Duty Limitations [employer] ([facility])(O b/Telecine Operator) [facility] [employer] ([facility])(Ob/ Telecine Operator) TELE CONSULT [id number] test results VERONICA JOHNS 04/30 [facility] [employer] ([facility])(O b/Telecine Operator) [facility] [employer] ([facility])(Ob/ Telecine Operator) OUTPATIENT [id number] nic - edc jul 10 - discuss deliver y options BRIE CRUZ 05/16 Released w/o Limitations [employer] ([facility])(O b/Telecine Operator) [employer] ([facility])(Sco tt [facility] Fam Res Tm Green) OUTPATIENT [id number] flu shot for high risk pt AL TALBOT Delgado 05/16 Released w/o Limitations [facility] [employer] ([facility])(S cott [facility] Fam Res Tm Green) [facility] [employer] ([facility])(Ob/ Telecine Operator) TELE CONSULT [id number] flu symptom s TRUNG HALEY 05/28 [facility] [employer] ([facility])(O b/Telecine Operator) [facility] [employer] ([facility])(Ob/ Telecine Operator) OUTPATIENT [id number] NIC - EDC JUL 10 JE ARIZA 06/03 Released w/o Limitations [employer] ([facility])(O b/Telecine Operator) [employer] ([facility])(Ob/ Telecine Operator) OUTPATIENT [id number] NIC - EDC JUL 10 BRIE CRUZ 06/11 Released w/o Limitations [employer] ([facility])(O b/Telecine Operator) [address] [place] [address] [place] [employer] ([facility])(Ob/ Telecine Operator) OUTPATIENT [id number] nic - edc jul 10 JE ARIZA 06/18 Released w/o Limitations [address] [place] [address] [place] [employer] ([facility])(O b/Telecine Operator) [address] [place] [address] [place] Reynaldo [facility])(Lion e Managemen t) TELE CONSULT [id number] [facility] ital Admissi on URBAN STYLES 06/[address] [place] [address] [place] [facility]APP [facility])(C ase Managem ent) [address] [place] [address] [place] SAPP [facility])(Ob/ Telecine Operator) TELE CONSULT [id number] burning during urinati on DORI DAVENPORT L 07/[address] [place] [address] [place] [facility])(O b/Telecine Operator) [address] [place] [address] [place] [facility])(Sco tt [facility] Tm Blue) OUTPATIENT [id number] lactati on consult from WANDA Shine 07/05 Released w/o Limitations [address] [place] [address] [place] [facility])(S cott [facility] Tm Blue) [address] [place] [address] [place] SAPP [facility])(Ob/ Telecine Operator) OUTPATIENT [id number] 6 wk pp - deliver ed Jun 10 BRIE CRUZ 08/05 Released w/o Limitations [address] [place] [address] [place] [facility]APP [facility])(O b/Telecine Operator) [address] [place] [address] [place] [facility])(Sco tt [facility] Tm Blue) TELE CONSULT [id number] ALDO Singh 08/[address] [place] [address] [place] [employer] ([facility])(S cott [facility] Tm Blue) [address] [place] [address] [place] SAPP [facility])(Telecine Operator ecology) OUTPATIENT [id number] mirena inserti on BRIE CRUZ 08/20 Released w/o Limitations [address] [place] [address] [place] [facility] [facility] [facility]G ynecolo gy) [address] [place] [address] [place] SAPP [facility])(Sco tt [facility] Tm Blue) OUTPATIENT [id number] dry hands and feet cell# [phone] LEXY BRICENO 08/29 Released w/o Limitations [address] [place] [address] [place] KELSEYB ([facility])(S cott [facility] Tm Blue) [address] [place] [address] [place] KELSEYB ([facility])(Ob/ Telecine Operator) TELE CONSULT [id number] some concern s with JE GALE 09/[address] [place] [address] [place] KELSEYB ([facility])(O b/Telecine Operator) [address] [place] [address] [place] KELSEYB ([facility])(Sco tt [facility] Tm Blue) OUTPATIENT [id number] fu left hand [phone] VASU CARPENTER 10/18 Released w/o Limitations [address] [place] [address] [place] KELSEYB ([facility])(S cott [facility] Tm Blue) [address] [place] [address] [place] KELSEYB [facility])(Hubert matology) OUTPATIENT [id number] DYSHIDR MONI DILL 11/08 Released w/o Limitations [address] [place] [address] [place] KELSEYB ([facility])(D ermatol ogy) [address] [place] [address] [place] KELSEYB [facility])(Sco tt [facility] Tm Blue) TELE CONSULT [id number] refill narc VASU CARPENTER 12/[address] [place] [address] [place] KELSEYB [facility])(S cott [facility] Tm Blue) [address] [place] [address] [place] KELSEYB [facility])(Ob/ Telecine Operator) TELE CONSULT [id number] appt VERONICA JOHNS 12/[address] [place] [address] [place] SAPP ([facility])(O b/Telecine Operator) [address] [place] [address] [place] KELSEYB [facility])(Opt ometry) OUTPATIENT [id number] eye exam... [id number] LUZ MUHAMMAD 12/31 Released w/o Limitations [address] [place] [address] [place] KELSEYB ([facility])(O ptometr y) [address] [place] [address] [place] KELSEYB ([facility])(Telecine Operator ecology) OUTPATIENT [id number] iud removal BRIE CRUZ 01/14 Released w/o Limitations [address] [place] [address] [place] KELSEYB ([facility])(G ynecolo gy) [address] [place] [address] [place] KELSEYB ([facility])(Sco tt [facility] Tm Blue) OUTPATIENT [id number] discuss quittin g smoking /ear acupunt ALDO Swenson 01/24 Released w/o Limitations [address] [place] [address] [place] KELSEYB ([facility])(S cott [facility] Tm Blue) [address] [place] [address] [place] KELSEYB ([facility])(Sco tt [facility] Tm Blue) TELE CONSULT [id number] Medical Inquiry ALDO DAY 03/[address] [place] [address] [place] LAUREReynaldo [facility])(S [facility] Tm Blue) [address] [place] [address] [place] KELSEYB [facility])(Sco tt [facility] Tm Blue) OUTPATIENT [id number] f/u ibs/gal lbladde r ALDO DAY 04/15 Released w/o Limitations [address] [place] [address] [place] LAUREB [facility])(S [facility] Tm Blue) [address] [place] [address] [place] [facility])(Telecine Operator ecology) OUTPATIENT [id number] bp check and review bcp - [phone] BRIE CRUZ 04/17 Released w/o Limitations [address] [place] [address] [place] [facility])(G ynecolo gy) [address] [place] [address] [place] B [facility])(Fam jesus Med Tm B Non-AD BCC) OUTPATIENT [id number] Congest ion [phone] MONI BOSS 08/05 Released w/o Limitations [address] [place] [address] [place] [facility])(F amily Med Tm B Non-AD BCC) [address] [place] [address] [place] [facility])(Telecine Operator ecology) OUTPATIENT [id number] pregnan cy KELSIE Tobin 08/05 Released w/o Limitations [address] [place] [address] [place] [facility]G ynecolo gy) [address] [place] [address] [place] [facility]War rior Op Med Cln Tm A Ad) TELE CONSULT [id number] Patient is request ing a refill on med Amitrip tyline. SIDDHARTH CURTIS 08/[address] [place] [address] [place] [facility]W arrior Op Med Cln Tm A Ad) [address] [place] [address] Irsael B [facility])(Fam jesus Med Tm B Non-AD BCC) OUTPATIENT [id number] wrist pain [phone] EFREN MAYA 09/17 Released w/o Limitations [address] [place] [address] [place] LAUREB [facility])(F amily Med Tm B Non-AD BCC) [address] [place] [address] [place] [facility])(War rior Op Med Cln Tm A Ad) OUTPATIENT [id number] feeling nervous all the time [phone] EFREN MAYA 02/11 Released w/o Limitations [address] [place] [address])(W arrior Op Med Cln Tm A Ad) [address] [place] [address])(War rior Op Med Cln Tm A Ad) OUTPATIENT [id number] abd pain [phone] EFREN MAYA 04/27 Released w/o Limitations [address] [place] [address])(W arrior Op Med Cln Tm A Ad) [address] [place] [address])(War rior Op Med Cln Tm A Ad) TELE CONSULT [id number] Lab Result Review results with patient EFREN MAYA 04/[address] [place] [address])(W arrior Op Med Cln Tm A Ad) [address] [place] [address])(War rior Op Med Cln Tm A Ad) TELE CONSULT [id number] Notes Entered by: GENA MARTE 17 Dec 2011 1237 ------- ------- ------- ------- -- Tcon for possibl e sinus infecti on CHANCE Maya ph [phone] EVONNE Harrison 12/[address] [place] [address])(W arrior Op Med Cln Tm A Ad) [address] [place] [address])(War rior Op Med Cln Tm A Ad) OUTPATIENT [id number] sinus infecti on [id number] EFREN MAYA 12/23 Released w/o Limitations [address] [place] [address])(W arrior Op Med Cln Tm A Ad) [address] [place] [address])(War rior Op Med Cln Tm A Ad) TELE CONSULT [id number] Notes Entered by: Duglas SILVESTRE 09 Mar 2012 1342 ------- ------- ------- ------- -- Med refill Nexium 40 mg daily Lance /byron [id number] ANDRAE SIMS 03/[address] [place] [address])(W arrior Op Med Cln Tm A Ad) [address] [place] [address])(War rior Op Med Cln Tm A Ad) OUTPATIENT [id number] cough congest ion [phone] LOIS IBARRA 06/09 Released w/o Limitations [address] [place] [address])(W arrior Op Med Cln Tm A Ad) [address] [place] [address])(Telecine Operator ecology) TELE CONSULT [id number] Notes Entered by: Toby YA 10 Jun 2012 1448 ------- ------- ------- ------- -- Walk in HCG CRISTOPHER LARY L 06/[address] [place] [address])(G dung gy) [address] [place] [address])(Fam jesus Med Tm B Non-AD BCC) TELE CONSULT [id number] Notes Entered by: RONAL NUNO 22 Jun 2012 0925 ------- ------- ------- ------- -- Vaginal pain, abnorma l JE Tiwari 06/[address] [place] [address])(F amily Med Tm B Non-AD BCC) [address] [place] [address])(Telecine Operator ecology) TELE CONSULT [id number] Notes Entered by: LEVON FLORES 22 Jun 2012 1117 ------- ------- ------- ------- -- F/u appt for ER visit LARY NICHOLAS Aman 06/[address] [place] [address])(Geoffrey razo gy) [address] [place] [address])(Telecine Operator ecology) TELE CONSULT [id number] Notes Entered by: KARTHIK SANDOVAL 06 Jul 2012 1352 ------- ------- ------- ------- -- Resched pia [place] appt - Josue ruelas - [phone] MARY JO ELKINS 07/06 Referred for Appointment [address] [place] [address] [place] [facility])(G ynecodenis gy) [address] [place] [address] [place] [facility])(Telecine Operator ecology) OUTPATIENT [id number] Follow up ER visit, lower pelvic pain, UTI, dysuria and mild inconti neanushae ANI CHOI 07/15 Released w/o Limitations [address] [place] [address])(G ynecodenis gy) [address] [place] [address])(Ob/ Telecine Operator) TELE CONSULT [id number] Notes Entered by: TESSA SORIA 12 Aug 2012 1007 ------- ------- ------- ------- -- Lab result VERONICA JOHNS 08/[address] [place] [address])(O b/Telecine Operator) [address] [place] [address] [place] [facility])(War rior Op Med Cln Tm A Ad) TELE CONSULT [id number] Notes Entered by: RONAL NUNO 17 Aug 2012 1020 ------- ------- ------- ------- -- Vaginal itching /burnin g ANDRAE Nguyen 08/[address] [place] [address] [place] [facility])(W arrior Op Med Cln Tm A Ad) [address] [place] [address] [place] [facility])(Telecine Operator ecology) TELE CONSULT [id number] Notes Entered by: TESSA SORIA 30 Aug 2012 1003 ------- ------- ------- ------- -- US result VERONICA JOHNS 08/[address] [place] [address] [place] [facility])(Geoffrey razo gy) [address] [place] [address] [place] [facility])(Sco tt [facility] Team 3) OUTPATIENT [id number] neck and shoulde r pain x 2 weeks; denies injury, LOIS IBARRA 10/11 Released w/o Limitations [address] [place] [address] [place] [facility])(S [facility] Team 3) [address] [place] [address] [place] [facility])([facility] Team 3) TELE CONSULT [id number] Notes Entered by: RONAL NUNO 19 Oct 2012 1356 ------- ------- ------- ------- -- Flu symptom s ANDRAE Nguyen 10/[address] [place] [address])([facility] Team 3) [address] [place] [address])([facility] Team 3) TELE CONSULT [id number] Notes Entered by: SOPHIA LARA 08 Nov 2012 1206 ------- ------- ------- ------- -- Ling Devlin [id number] ANDRAE SIMS 11/[address] [place] [address])([facility] Team 3) [address] [place] [address])(War rior Op Med Cln Tm A Ad) TELE CONSULT [id number] Notes Entered by: OWEN NEGRETE 21 Nov 2012 0824 ------- ------- ------- ------- -- Josue ruelas/Karen Sanchez on ANDRAE SIMS 11/[address] [place] [address])(W arrior Op Med Cln Tm A Ad) [address] [place] [address])(War rior Op Med Cln Tm A Ad) TELE CONSULT [id number] Notes Entered by: KANU ANGEL 14 Dec 2012 1129 ------- ------- ------- ------- -- Network Results - Physica l Therapy - 3 LOIS IBARRA 12/[address] [place] [address])(W arrior Op Med Cln Tm A Ad) [address] [place] [address])([facility] Team 3) TELE CONSULT [id number] Notes Entered by: SHAUN JOHNSTON 22 Dec 2012 1443 ------- ------- ------- ------- -- Med Refill- Josue ruelas/ ANDRAE SIMS 12/[address] [place] [address])([facility] Team 3) [address] [place] [address])(War rior Op Med Cln Tm A Ad) TELE CONSULT [id number] Notes Entered by: KANU ANGEL 23 Jan 2013 1211 ------- ------- ------- ------- -- Network Results - Kavina aman Therapy - 3 MANN BUCIO 01/[address] [place] [address])(W arrior Op Med Cln Tm A Ad) [address] [place] [address])(Sco [facility] Team 3) TELE CONSULT [id number] Notes Entered by: Duglas SILVESTRE 25 Jan 2013 1510 ------- ------- ------- ------- -- Med refill Leonel MACARENA THOMAS I 01/[address] [place] [address])([facility] Team 3) [address] [place] [address])(War rior Op Med Cln Tm A Ad) OUTPATIENT [id number] acid relux-m ed not working , ring in L ear [id number] RAHUL SCHMITT 02/21 Released w/o Limitations [address] [place] [address])(W arrior Op Med Cln Tm A Ad) [address] [place] [address])(War rior Op Med Cln Tm A Ad) TELE CONSULT [id number] Notes Entered by: RAHUL SCHMITT 22 Feb 2013 1254 ------- ------- ------- ------- -- F/u from labs RAHUL SCHMITT 02/[address] [place] [address])(W arrior Op Med Cln Tm A Ad) [address] [place] [address])(War rior Op Med Cln Tm A Ad) TELE CONSULT [id number] Notes Entered by: STARLA MARES 03 Mar 2013 1510 ------- ------- ------- ------- -- Ear pain/Giraldo jae / JODIE RODRIGUEZ 03/03 Referred for Appointment [address] [place] [address] Group [facility])(W arrior Op Med Cln Tm A Ad) [address] [place] [address])(War rior Op Med Cln Tm A Ad) OUTPATIENT [id number] ear pain JYOTHI BATES 03/06 Released w/o Limitations [address] [place] [address])(W arrior Op Med Cln Tm A Ad) [address] [place] [address])(War rior Op Med Cln Tm A Ad) TELE CONSULT [id number] Notes Entered by: SOPHIA LARA 09 Mar 2013 1506 ------- ------- ------- ------- -- Ling Colon [facility] [id number] JODIE RODRIGUEZ 03/09 Referred for Appointment [address] [place] [address] Group [facility])(W arrior Op Med Cln Tm A Ad) [address] [place] [address])(Telecine Operator ecology) TELE CONSULT [id number] Notes Entered by: SUSAN CONTRERAS 27 Apr 2013 0942 ------- ------- ------- ------- -- Walk in for YONG Vaughan 04/[address] [place] [address])(Geoffrey arenas) [address] [place] [address])(War rior Op Med Cln Tm A Ad) TELE CONSULT [id number] Notes Entered by: Duglas SILVESTRE 28 Apr 2013 1157 ------- ------- ------- ------- -- Sinus infecti on Hargr es EB DOMINGO Delgado 04/[address] [place] [address] [facility]W arrior Op Med Cln Tm A Ad) [address] [place] [address])(War rior Op Med Cln Tm A Ad) TELE CONSULT [id number] Notes Entered by: STARLA MARES 01 May 2013 0827 ------- ------- ------- ------- -- [facility]/618 [phone] OLAF DOMINGODEJON Natarajan 05/[address] [place] [address] [facility])(W arrior Op Med Cln Tm A Ad) [address] [place] [address])(Ob/ Telecine Operator) OUTPATIENT [id number] New OB with IBS EDC approx Oct 14. CLEMENTINA DAVILA 05/01 Released w/o Limitations [address] [place] [address])(O b/Telecine Operator) [address] [place] [address])(Ob/ Telecine Operator) OUTPATIENT [id number] Notes Entered by: JENI CHEN 05 May 2013 1132 ------- ------- ------- ------- -- NIC RAHMAN 5May14/ repeat u/s CLEMENTINA DAVILA 05/05 Released w/o Limitations [address] [place], [place] [address]B [facility])(O b/Telecine Operator) [address] [place] [address])(Ob/ Telecine Operator) TELE CONSULT [id number] Notes Entered by: MARY JO ELKINS 10 May 2013 1250 ------- ------- ------- ------- -- CLEMENTINA Love 05/[address] [place], [place] [address]B [facility])(O b/Telecine Operator) [address] [place] [address])(Ob/ Telecine Operator) OUTPATIENT [id number] NIC EDC [id number] GUERRERO DWYER 05/25 Released w/o Limitations [facility] Group [place] B ([facility])(O b/Telecine Operator) [facility] Medical [facility] [place] [facility])(Ob/ Telecine Operator) TELE CONSULT [id number] Notes Entered by: MARY JO ELKINS 03 Jul 2013 1451 ------- ------- ------- ------- -- Medicat ion MARY JO ELKINS 07/[address] [place] [address] [place] [facility] ([facility])(O b/Telecine Operator) [address] [place] [address] [place] [facility] ([facility])(Ob/ Telecine Operator) TELE CONSULT [id number] Notes Entered by: MARY JO ELKINS 05 Jul 2013 1309 ------- ------- ------- ------- -- Cold Symptom s MARY JO ELKINS 07/[address] [place] [address] ([facility])(O b/Telecine Operator) [address] [place] [address])(Ob/ Telecine Operator) OUTPATIENT [id number] [facility] December 13 VIOLET WALKER 07/06 Released w/o Limitations [address] [place] [address] [place] [facility] ([facility])(O b/Telecine Operator) [address] [place] [address])(Ob/ Telecine Operator) TELE CONSULT [id number] Notes Entered by: MARY JO ELKINS 06 Jul 2013 1426 ------- ------- ------- ------- -- [facility] MARY JO Corley 07/[address] [place] [address] [place] B ([facility])(O b/Telecine Operator) [address] [place] [address] [place] B ([facility])(Ob/ Telecine Operator) TELE CONSULT [id number] Notes Entered by: MARY JO ELKINS 17 Jul 2013 1109 ------- ------- ------- ------- -- Anxiety MARY JO ELKINS 07/[address] [place] [address] [place] B ([facility])(O b/Telecine Operator) [address] [place] [address] [place] [facility])(Ob/ Telecine Operator) TELE CONSULT [id number] Notes Entered by: LASHELL PARIS 18 Jul 2013 0758 ------- ------- ------- ------- -- Network Results -OBSTET RICS 3 GUERRERO DWYER 07/[address] [place] [address])(O b/Telecine Operator) [address] [place] [address])(Ob/ Telecine Operator) OUTPATIENT [id number] evaluat ion for anti-an xiety medicat ion d/t acute panic attacks GUERRERO DWYER 07/18 Released w/o Limitations [address] [place] [address])(O b/Telecine Operator) [address] [place] [address])(Ob/ Telecine Operator) TELE CONSULT [id number] Notes Entered by: MARY JO ELKINS 11 Aug 2013 1606 ------- ------- ------- ------- -- Medicat ion Refill GUERRERO DWYER 08/[address] [place] [address])(O b/Telecine Operator) [address] [place] [address])(Ob/ Telecine Operator) TELE CONSULT [id number] Notes Entered by: LASHELL PARIS 16 Aug 2013 1040 ------- ------- ------- ------- -- Network Results -OBSTET RICS 08/14/13 ANI CHOI 08/[address] [place] [address])(O b/Telecine Operator) [address] [place] [address])(Ob/ Telecine Operator) OUTPATIENT [id number] nic - [facility] december 13 GUERRERO DWYER 08/17 Released w/o Limitations [address] [place] [address])(O b/Telecine Operator) [address] [place] [address])(Ob/ Telecine Operator) TELE CONSULT [id number] Notes Entered by: ST KATERYNA DAVILA 27 Aug 2013 1307 ------- ------- ------- ------- -- anxiety CLEMENTINA DAVILA 08/[address] [place] [address] [place] [facility])(O b/Telecine Operator) [address] [place] [address])(Ob/ Telecine Operator) OUTPATIENT [id number] follow up appt/an xiety attacks /treatm ent plan YULIYAGUERRERO Reynaldo 08/28 Released w/o Limitations [address] [place] [address] [place] [facility] ([facility])(O b/Telecine Operator) [address] [place] [address] [place] [facility])(Ob/ Telecine Operator) TELE CONSULT [id number] Notes Entered by: Aster DWYER 29 Aug 2013 0908 ------- ------- ------- ------- -- Anxiety GUERRERO DWYER 08/[address] [place] [address])(O b/Telecine Operator) [address] [place] [address])(Ob/ Telecine Operator) TELE CONSULT [id number] Notes Entered by: Duglas DAVIES 05 Sep 2013 1131 ------- ------- ------- ------- -- Med ANTONIO Yoo 09/[address] [place] [address])(O b/Telecine Operator) [address] [place] [address])(Ob/ Telecine Operator) OUTPATIENT [id number] f/u hospita lizatio n/anxie ANI Irving 09/08 Released w/o Limitations [address] [place] [address])(O b/Telecine Operator) [address] [place] [address])(Ob/ Telecine Operator) TELE CONSULT [id number] Notes Entered by: ME JARED CANO 12 Sep 2013 1146 ------- ------- ------- ------- -- Insomni a 24 6/7 week Ob-per our convers ation GUERRERO DWYER 09/[address] [place] [address] [place] [facility]O b/Telecine Operator) [address] [place] [address] [place] [facility])(Sco tt [facility] Res [facility] [employer]) TELE CONSULT [id number] Notes Entered by: Jim ENRIQUEZ 12 Sep 2013 1747 ------- ------- ------- ------- -- seen inpatie nt, needs THELMA Barahona 09/[address] [place] [address] ([facility])(S kenisha [facility] Res [facility]) [address] [place] [address])(Ob/ Telecine Operator) TELE CONSULT [id number] Notes Entered by: MARY JO ELKINS 13 Sep 2013 1540 ------- ------- ------- ------- -- MACARENA Rao I 09/[address] [place] [address])(O b/Telecine Operator) [address] [place] [address])(Ob/ Telecine Operator) OUTPATIENT [id number] NEW MEDICAT ION FOLLOW UP/EDC DECEMBER 13 GUERRERO DWYER 09/15 Released w/o Limitations [address] [place] [address])(O b/Telecine Operator) [address] [place] [address])(Ob/ Telecine Operator) TELE CONSULT [id number] Notes Entered by: MARY JO ELKINS 19 Sep 2013 1505 ------- ------- ------- ------- -- Medicat ion Increas e GUERRERO DWYER 09/[address] [place] [address])(O b/Telecine Operator) [address] [place] [address])(Telecine Operator ecology) TELE CONSULT [id number] Notes Entered by: LASHELL PAIRS 20 Sep 2013 0816 ------- ------- ------- ------- -- Network Results -OBSTET RICS 09/12/13 ANI CHOI 09/[address] [place] [address])(Geoffrey razo gy) [address] [place] [address])(Ob/ Telecine Operator) OUTPATIENT [id number] nic edc december 13 THELMA HA 09/21 Released with Work/Duty Limitations [address] [place] [address] [facility])(O b/Telecine Operator) [facility] Group [place] [facility])(Ob/ Telecine Operator) OUTPATIENT [id number] HROB EDCDecember 13 GUERRERO DWYER 09/25 Released w/o Limitations [address] [place] [address] [place] B [facility])(O b/Telecine Operator) [address] [place] [address] [place] [facility])(Ob/ Telecine Operator) TELE CONSULT [id number] Notes Entered by: YAZAN MILLS 26 Sep 2013 0920 ------- ------- ------- ------- -- HROB-vo augustine/ CLEMENTINA Perez 09/[address] [place] [address] Group [place] [facility])(O b/Telecine Operator) [address] [place] [address])(Ob/ Telecine Operator) TELE CONSULT [id number] Notes Entered by: MARY JO ELKINS 02 Oct 2013 1052 ------- ------- ------- ------- -- MF MARY JO Corley 10/[address] [place] [address] [place] [facility])(O b/Telecine Operator) [address] [place] [address] [place] [facility])(Telecine Operator ecology) TELE CONSULT [id number] Notes Entered by: Aster DWYER 03 Oct 2013 0803 ------- ------- ------- ------- -- Abnorma l glucose screen GUERRERO DWYER 10/[address] [place] [address] [place] [facility] ([facility])(G dung gy) [address] [place] [address] [place] [facility])(Ob/ Telecine Operator) OUTPATIENT [id number] HROB/ EDC December 13 GUERRERO DWYER 10/05 Released w/o Limitations [address] [place] [address] Group [place] KELSEYB [facility])(O b/Telecine Operator) [address] [place] [address] [place] [facility])(Telecine Operator ecology) TELE CONSULT [id number] Notes Entered by: Aster DWYER 06 Oct 2013 1542 ------- ------- ------- ------- -- Elevate d 3 hr GTT WILLIAMATULMACARENA I 10/06 [facility] [employer] ([facility])(G yalka gy) [facility] [employer] ([facility])(Ob/ Telecine Operator) OUTPATIENT [id number] HROB/ EDC [id number] GUERRERO DWYER 10/13 Released w/o Limitations [facility] [employer] ([facility])(O b/Telecine Operator) [facility] Medical [facility] [employer] ([facility])(Ob/ Telecine Operator) TELE CONSULT [id number] Notes Entered by: LASHELL PARIS 18 Oct 2013 0905 ------- ------- ------- ------- -- Network Results -[facility] 10/05/13 CLEMENTINA DAVILA 10/18 [facility] [employer] ([facility])(O b/Telecine Operator) [address] [place] [address] [employer] ([facility])(Ob/ Telecine Operator) OUTPATIENT [id number] HROB/ EDC December 13 GUERRERO DWYER 10/19 Released w/o Limitations [facility] [employer] ([facility])(O b/Telecine Operator) [facility] [employer] ([facility])(Ob/ Telecine Operator) TELE CONSULT [id number] Notes Entered by: LASHELL PARIS 20 Oct 2013 1131 ------- ------- ------- ------- -- Network Results -[facility] 10/06/13 GUERRERO DWYER 10/20 [facility] [employer] ([facility])(O b/Telecine Operator) [facility] [employer] ([facility])([facility]) TELE CONSULT [id number] Notes Entered by: CATHY TOMAS 25 Oct 2013 1058 ------- ------- ------- ------- -- Message from OB TEAM CATHY TOMAS 10/25 [facility] [employer] ([facility])(O [facility]) [facility] [employer] ([facility])(Telecine Operator ecology) TELE CONSULT [id number] Notes Entered by: Aster DWYER 26 Oct 2013 0954 ------- ------- ------- ------- -- Pt phoneca belkis DWYER GUERRERO Reynaldo 10/[address] [place] [address] ([facility])(G ynecolo gy) [address] [place], [place] [address]B [facility])(Ob/ Telecine Operator) OUTPATIENT [id number] HROB EDC [id number] CLEMENTINA DAVILA 10/26 Released w/o Limitations [address] [place], [place] [address]B ([facility])(O b/Telecine Operator) [address] [place] [address] [employer] [facility])(Ob/ Telecine Operator) TELE CONSULT [id number] Notes Entered by: RADHA LANZA 27 Oct 2013 1511 ------- ------- ------- ------- -- Medicat ion inquiry GAYE DECKER 10/[address] [place] [address] ([facility])(O b/Telecine Operator) [address] [place], [place] [address]B [facility])(Ob/ Telecine Operator) TELE CONSULT [id number] Notes Entered by: RADHA LANZA 30 Oct 2013 0915 ------- ------- ------- ------- -- Medicat ion reactio GAYE Melissa 10/[address] [place], [place] [address]B ([facility])(O b/Telecine Operator) [address] [place], [place] [address]B [facility])([facility]) OUTPATIENT [id number] [facility] REYES CHOWDHURY 11/03 Released w/o Limitations [address] [place], [place] [address]B [facility])(N utritio nal Medicin e) [facility] Medical [facility] [employer] ([facility])(Ob/ Telecine Operator) TELE CONSULT [id number] Notes Entered by: RADHA LANZA 08 Nov 2013 0803 ------- ------- ------- ------- -- Refill prescri ptGAYE Villela 11/[address] [place] [address] [employer] ([facility])(O b/Telecine Operator) [address] [place], [place] [address]B [facility])(War rior Op Med Cln Tm A Ad) OUTPATIENT [id number] Cough/C ongesti on SHAHNAZ JINCHETNA A 11/08 Released w/o Limitations [facility] [employer] ([facility])(W arrior Op Med Cln Tm A Ad) [facility] [employer] ([facility])(Ob/ Telecine Operator) OUTPATIENT [id number] HROB EDC [id number] GUERRERO DWYER 11/13 Released w/o Limitations [facility] [employer] ([facility])(O b/Telecine Operator) [facility] [employer] ([facility])(Ob/ Telecine Operator) OUTPATIENT [id number] HROB/ED C December 13 CLEMENTINA DAVILA 11/27 Released w/o Limitations [facility] [employer] ([facility])(O b/Telecine Operator) [facility] [employer] ([facility])(Ob/ Telecine Operator) TELE CONSULT [id number] Notes Entered by: JANINA MUHAMMAD 04 Dec 2013 0933 ------- ------- ------- ------- -- Nausea and dry heaving MACARENA THOMAS I 12/04 [facility] [employer] ([facility])(O b/Telecine Operator) [facility] [employer] ([facility])(Ob/ Telecine Operator) TELE CONSULT [id number] Notes Entered by: LASHELL PARIS 11 Dec 2013 1121 ------- ------- ------- ------- -- Network Results -[facility]STET [facility]ICS 12/04/13 GUERRERO DWYER 12/11 [facility] [employer] ([facility])(O b/Telecine Operator) [facility] [employer] ([facility])(Ob/ Telecine Operator) OUTPATIENT [id number] Post check up/del December 13 CLEMENTINA DAVILA 12/21 Released w/o Limitations [facility] [employer] ([facility])(O b/Telecine Operator) [facility] Medical [facility] [employer] ([facility])(Ob/ Telecine Operator) OUTPATIENT [id number] 6WPP/ Del 05 Dec 2013 ANI CHOI 01/23 Released w/o Limitations [employer] ([facility])(O b/Telecine Operator) [employer] ([facility])(Telecine Operator ecology) OUTPATIENT [id number] [facility] ALYSSA Michel 02/20 Released w/o Limitations [employer] ([facility])(G ynecolo gy) [employer] ([facility])(War rior Op Med Cln Tm A Ad) TELE CONSULT [id number] Notes Entered by: Abelino SILVESTRE 01 May 2014 1304 ------- ------- ------- ------- -- ER PEG/Gayle ceballos [phone] EVONNE BRAR 05/01 [employer] ([facility])(W arrior Op Med Cln Tm A Ad) [employer] ([facility])(Telecine Operator ecology) OUTPATIENT [id number] WWE LUISANA DEVLIN 06/04 Released w/o Limitations [employer] ([facility])(G ynecolo gy) [employer] ([facility])(Telecine Operator ecology) OUTPATIENT [id number] Paragar d Inserti on [phone] LUISANA DEVLIN 06/18 Released w/o Limitations [employer] ([facility])(G ynecolo gy) [employer] ([facility])(War rior Op Med Cln Tm A Ad) OUTPATIENT [id number] right wrist pain - [id number] [phone] CHETNA MESA 07/09 Released w/o Limitations [employer] ([facility])(W arrior Op Med Cln Tm A Ad) [employer] ([facility])(Telecine Operator ecology) OUTPATIENT [id number] [address] placeme nt check [phone] LUISANA DEVLIN 09/07 Released w/o Limitations [employer] ([facility])(G ynecolo gy) [employer] ([facility])(War rior Op Med Cln Tm A Ad) TELE CONSULT [id number] Notes Entered by: ROZ GASTELUM 21 Sep 2014 1006 ------- ------- ------- ------- -- SX - multipl e sx/Elsn [facility] t/ * MANN COLON 09/[address] [place] [address])(W arrior Op Med Cln Tm A Ad) [address] [place] [address])(War rior Op Med Cln Tm A Ad) OUTPATIENT [id number] Ovarian Cyst, ER Visit FollowLAMAR Mott 09/24 Released w/o Limitations [address] [place] [address])(W arrior Op Med Cln Tm A Ad) [address] [place] [address])(Telecine Operator ecology) OUTPATIENT [id number] Possibl e Ovarion Cyst GUERRERO DWYER 09/24 Released w/o Limitations [address] [place] [address])(G ynecolo gy) [address] [place] [address])(Ob/ Telecine Operator) TELE CONSULT [id number] Notes Entered by: Aster DWYER 04 Oct 2014 1623 ------- ------- ------- ------- -- U/S results VERONICA JOHNS 10/[address] [place] [address])(O b/Telecine Operator) [address] [place] [address])(War rior Op Med Cln Tm A Ad) OUTPATIENT [id number] pain in both feet -L is worse x 1wk [id number] TENZIN HOPE 12/11 Released w/o Limitations [address] [place] [address])(W arrior Op Med Cln Tm A Ad) [address] [place] [address])(War rior Op Med Cln Tm A Ad) TELE CONSULT [id number] Notes Entered by: KANU ANGEL 29 Jan 2015 1253 ------- ------- ------- ------- -- Network results Neurolo gy 5 TENZIN HOPE Delgado 01/[address] [place] [address])(W arrior Op Med Cln Tm A Ad) [address] [place] [address])(Telecine Operator ecology) OUTPATIENT [id number] red,bli stery vagina [phone] ALYSSA COLÓN 02/05 Released w/o Limitations [address] [place] [address])(G ynecolo gy) [address] [place] [address])(Telecine Operator ecology) TELE CONSULT [id number] Notes Entered by: ANDREWS COLÓN 12 Feb 2015 1635 ------- ------- ------- ------- -- results LAMAR ALVARADO 02/[address] [place] [address])(G ynecodenis gy) [address] [place] [address])(War rior Op Med Cln Tm A Ad) TELE CONSULT [id number] Notes Entered by: KANU ANGEL 01 Mar 2015 0938 ------- ------- ------- ------- -- Network results Neurolo gy 5 TENZIN HOPE Delgado 03/[address] [place] [address])(W arrior Op Med Cln Tm A Ad) [address] [place] [address])(Telecine Operator ecology) TELE CONSULT [id number] Notes Entered by: JUAN ALBERTO GRIMM 10 Apr 2015 1049 ------- ------- ------- ------- -- Sx - Multipl e sx/Layla donnelly/6 [phone]. [phone] ANANDA WILLAMS 04/[address] [place] [address])(G ynecolo gy) [address] [place] [address])(Telecine Operator ecology) OUTPATIENT [id number] pelvic pain, vaginal bleedin g x 2weeks AMAYA BAEZ 04/11 Released w/o Limitations [address] [place] [address])(G ynecolo gy) [address] [place] [address])(War rior Op Med Cln Tm A Ad) TELE CONSULT [id number] Notes Entered by: SAILAJA DEVLIN 15 Apr 2015 0818 ------- ------- ------- ------- -- Lab Results / Gil limon / KEL THOMPSON 04/[address] [place] [address])(W arrior Op Med Cln Tm A Ad) [address] [place] [address])(War rior Op Med Cln Tm A Ad) TELE CONSULT [id number] Notes Entered by: ALESIA BARRAGAN 26 Apr 2015 1103 ------- ------- ------- ------- -- ER Follow- up/ Gil ne/ 741.401 2 MANN COLNO 04/[address] [place] [address])(W arrior Op Med Cln Tm A Ad) [address] [place] [address])(Telecine Operator ecology) OUTPATIENT [id number] discuss tubalig ation [id number] GUERRERO DWYER 04/30 Released w/o Limitations [address] [place] [address])(G ynecolo gy) [address] [place] [address])(War rior Op Med Cln Tm A Ad) TELE CONSULT [id number] Notes Entered by: JEN BADILLO 23 May 2015 1046 ------- ------- ------- ------- -- Network Results -GASTRO ENTEROL OGY 5 TENZIN HOPE 05/[address] [place] [address])(W arrior Op Med Cln Tm A Ad) [address] [place] [address])(Telecine Operator ecology) TELE CONSULT [id number] Notes Entered by: GILSON THOMSON 04 Jun 2015 0811 ------- ------- ------- ------- -- Cancel for Bella bojorquez/t jad- GILSON Osuna 06/[address] [place] [address])(G ynecolo gy) [address] [place] [address])(Telecine Operator ecology) TELE CONSULT [id number] Notes Entered by: Aster DWYER 05 Jun 2015 0859 ------- ------- ------- ------- -- U/S result VERONICA JOHNS 06/[address] [place] [address])(codenis gy) [address] [place] [address])( rior Op Med Cln Tm A Ad) OUTPATIENT [id number] Bad cough, headach e, nasal and chest congest ion [id number] MIRCHELLYPLACIDO ZAIDI 06/05 Released w/o Limitations [address] [place] [address])(W arrior Op Med Cln Tm A Ad) [address] [place] [address])( rior Op Med Cln Tm A Ad) TELE CONSULT [id number] Notes Entered by: KANU ANGEL 07 Jun 2015 1008 ------- ------- ------- ------- -- Network results Neurolo gy 5 TENZIN HOPE 06/[address] [place] [address])(W arrior Op Med Cln Tm A Ad) [address] [place] [address])(Fam jesus Med Tm B Non-AD BCC) TELE CONSULT [id number] Notes Entered by: MANN COLON 22 Aug 2015 0755 ------- ------- ------- ------- -- Referra l for physica l therapy needed MANN COLON 08/[address] [place] [address])(F amily Med Tm B Non-AD BCC) [address] [place] [address])(War rior Op Med Cln Tm A Ad) TELE CONSULT [id number] Notes Entered by: Delgado PIERCE 26 Aug 2015 1313 ------- ------- ------- ------- -- SX - Multipl e SX / Gil ne / JOE ASH 08/26 Referred for Appointment [address] [place] [address])(W arrior Op Med Cln Tm A Ad) [address] [place] [address])(War rior Op Med Cln Tm A Ad) TELE CONSULT [id number] Notes Entered by: KANU ANGEL 28 Aug 2015 1302 ------- ------- ------- ------- -- Network Results - Neurolo gy 6 TENZIN HOPE 08/[address] [place] [address])(W arrior Op Med Cln Tm A Ad) [address] [place] [address])(Telecine Operator ecology) OUTPATIENT [id number] Discuss Essure procedu re ANI CHOI 09/23 Released w/o Limitations [address] [place] [address])(G ynecolo gy) [address] [place] [address])(War rior Op Med Cln Tm A Ad) OUTPATIENT [id number] L and R shoulde r pain x 2 wks 741.401 2 TENZIN HOPE 09/25 Released w/o Limitations [address] [place] [address])(W arrior Op Med Cln Tm A Ad) [address] [place] [address])(War rior Op Med Cln Tm A Ad) TELE CONSULT [id number] Notes Entered by: JUAN ALBERTO GRIMM 02 Oct 2015 1405 ------- ------- ------- ------- -- Sx - Multipl e sx/Layla donnelly/Jesica 41.4012 JOE ASH 10/01 Referred for Appointment [address] [place] [address] [facility] [employer] [facility])(W arrior Op Med Cln Tm A Ad) [facility] [employer] [facility])(Telecine Operator ecology) TELE CONSULT [id number] Notes Entered by: DIMPLE MALIK 03 Oct 2015 0927 ------- ------- ------- ------- -- Pre-op call for Essure on 10 Oct 2015 FAMILIA THOMPSON 10/[address] [place] [address] [employer] [facility])(G ynecolo gy) [address] [place] [address] [employer] [facility])(War rior Op Med Cln Tm A Ad) OUTPATIENT [id number] cough, congest ion and ear pain TENZIN HOPE 10/02 Released w/o Limitations [address] [place] [address] Group [facility])(W arrior Op Med Cln Tm A Ad) [address] [place] [address])(Telecine Operator ecology) OUTPATIENT [id number] essure procedu re - [phone] ANI CHOI 10/09 Released w/o Limitations [address] [place] [address] Group [facility])(G ynecolo gy) [address] [place] [address])(Telecine Operator ecology) TELE CONSULT [id number] Notes Entered by: DIMPLE MALIK 11 Oct 2015 0859 ------- ------- ------- ------- -- Callbac k for Essure on 10 Oct 2015 DIMPLE JOHNSON 10/10 Referred for Appointment [address] [place] [address] Group [facility])(G ynecolo gy) [address] [place] [address])(Telecine Operator ecology) TELE CONSULT [id number] Notes Entered by: LEVON FLORES 15 Oct 2015 1032 ------- ------- ------- ------- -- Bleedin g after ESSURE procedu re on Oct 15. DIMPLE JOHNSON 10/14 Referred for Appointment [address] [place] [address] Group [facility])(G ynecolo gy) [address] [place] [address])(Med ication Refill Clinic) TELE CONSULT [id number] Notes Entered by: Delgado PIERCE 21 Oct 2015 1501 ------- ------- ------- ------- -- Med renewal / [facility] ne / ZULMA JAMISON 10/[address] [place] [address])(M edicati on Refill Clinic) [address] [place] [address])(Med ication Refill Clinic) TELE CONSULT [id number] Notes Entered by: Vidal YA 17 Dec 2015 1144 ------- ------- ------- ------- -- Med bridge, Appt Jan 15 / [facility] braxton / DENIZ FRANKLIN 12/[address] [place] [address])(Michel eddiogenes on Refill Clinic) [address] [place] [address])(Telecine Operator ecology) OUTPATIENT [id number] [facility] [place]/p GIANNA Marino 01/06 Released w/o Limitations [address] [place] [address])(G ynecolo gy) [address] [place] [address])(War rior Op Med Cln Tm A Ad) OUTPATIENT [id number] Med Renewal s 741.401 2 TENZIN HOPE 01/07 Released w/o Limitations [address] [place] [address])(W arrior Op Med Cln Tm A Ad) [address] [place] [address])(Telecine Operator ecology) OUTPATIENT [id number] possibl e yeast infecti on - [phone] AMAYA BAEZ 03/04 Released w/o Limitations [address] [place] [address])(G ynecolo gy) [address] [place] [address])(Telecine Operator ecology) TELE CONSULT [id number] Notes Entered by: KYLE BAEZ 16 Mar 2016 1032 ------- ------- ------- ------- -- Test results LAMAR ALVARADO 03/16 [employer] ([facility])(G ynecolo gy) [employer] ([facility])(Sco tt MTF BHOP) OUTPATIENT [id number] Dawson MILLSPATRICIA Dilma 04/10 Released w/o Limitations [employer] ([facility])(S cott MTF BHOP) [employer] ([facility])(Telecine Operator ecology) OUTPATIENT [id number] repeat hsg - rt side - s/p KARI Pierce 04/14 Released w/o Limitations [employer] ([facility])(G ynecolo gy) [employer] ([facility])(Telecine Operator ecology) OUTPATIENT [id number] PARAGAR Dilam LOREDOI ON - [phone] KARI QUINONES 04/21 Released w/o Limitations [facility]3] [employer] [place] [employer] ([facility])(G ynecolo gy) [facility] [employer] ([facility])(Fam jesus Med Tm B Non-AD BCC) OUTPATIENT [id number] pressur e headach e - sore throat from drainag e - [id number] DEVIN GIBSON 06/08 Released w/o Limitations [employer] ([facility])(F amily Med Tm B Non-AD BCC) [employer] ([facility])(War rior Op Med Cln Tm A Ad) OUTPATIENT [id number] med renewal /referr MILLY Duong 07/14 Released w/o Limitations [employer] ([facility])(W arrior Op Med Cln Tm A Ad) [employer] ([facility])(War rior Op Med Cln Tm A Ad) OUTPATIENT [id number] sore throat, fever, body aches x2 days / TENZIN HOPE 09/02 Released w/o Limitations [employer] ([facility])(W arrior Op Med Cln Tm A Ad) Medical [facility] [employer] ([facility])(War rior Op Med Cln Tm A Ad) TELE CONSULT [id number] Notes Entered by: GLEN COTO 14 Sep 2016 0946 ------- ------- ------- ------- -- Network Results Radiolo gy 7 DS TENZIN HOPE 09/[address] [place] [address])(W arrior Op Med Cln Tm A Ad) [address] [place] [address])(War rior Op Med Cln Tm A Ad) TELE CONSULT [id number] Notes Entered by: JEN BADILLO 14 Sep 2016 1211 ------- ------- ------- ------- -- Network Results -GASTRO ENTEROL OGY 08/28/16 [facility] TENZIN HOPE 09/[address] [place] [address])(W arrior Op Med Cln Tm A Ad) [address] [place] [address])(War rior Op Med Cln Tm A Ad) OUTPATIENT [id number] Knot near R Collar bone [id number] TENZIN HOPE 10/23 Released w/o Limitations [address] [place] [address])(W arrior Op Med Cln Tm A Ad) [address] [place] [address])(War rior Op Med Cln Tm A Ad) OUTPATIENT [id number] dizzy, headach es, ear aches, [id number] MILLY BEGUM 12/14 Released w/o Limitations [address] [place] [address])(W arrior Op Med Cln Tm A Ad) [address] [place] [address])(War rior Op Med Cln Tm A Ad) TELE CONSULT [id number] Notes Entered by: TONY FOFANA 06 Jan 2017 1002 ------- ------- ------- ------- -- Network results Gastroe nterolo gy 12/31/16 MM TENZIN HOPE 01/[address] [place] [address])(W arrior Op Med Cln Tm A Ad) [address] [place] [address])(Med ication Refill Clinic) TELE CONSULT [id number] Notes Entered by: CRISTI CAREY 12 Jan 2017 1300 ------- ------- ------- ------- -- Med renewal /Kathy gne/618 .741.40 12/MILLY Everett 01/[address] [place] [address])(Michel bob on Refill Clinic) [address] [place] [address])(War rior Op Med Cln Tm A Ad) OUTPATIENT [id number] Dizzine ss, 741.401 2 PLACIDO MERAZ 02/08 Released w/o Limitations [address] [place] [address])(W arrior Op Med Cln Tm A Ad) [address] [place] [address])(War rior Op Med Cln Tm A Ad) TELE CONSULT [id number] Notes Entered by: JUAN ALBERTO GRIMM 25 Feb 2017 1202 ------- ------- ------- ------- -- Sx - Dizzine ss, R ear pain/Ch sharifagne / DARIEN, RAVIN J 02/[address] [place] [address])(W arrior Op Med Cln Tm A Ad) [address] [place] [address])(Fam jesus Med Tm B Non-AD BCC) TELE CONSULT [id number] Notes Entered by: CARLOS MANUEL CORTES 02 Mar 2017 1615 ------- ------- ------- ------- -- Network Results Emergen Room 7 BG PLACIDO MERAZ 03/[address] [place] [address])(F amily Med Tm B Non-AD BCC) [address] [place] [address])(Med ication Refill Clinic) TELE CONSULT [id number] Notes Entered by: HORTENCIA OLGUIN RET 15 Apr 2017 1145 ------- ------- ------- ------- -- Rx Sherice /Kathy schuler/618 .741.40 12 [facility] WICHO RUCKER Delgado 04/[address] [place] [address])(Michel bob on Refill Clinic) [address] [place] [address])(War rior Op Med Cln Tm A Ad) OUTPATIENT [id number] ear problem s 2 months TENZIN HOPE 04/19 Released w/o Limitations [address] [place] [address])(W arrior Op Med Cln Tm A Ad) [address] [place] [address])(War rior Op Med Cln Tm A Ad) TELE CONSULT [id number] Notes Entered by: HORTENCIA OLGUIN RET 29 Jun 2017 0726 ------- ------- ------- ------- -- Sx: Thea/C miguel rodarte/ [facility] DARIEN, RAVIN J 06/[address] [place] [address])(W arrior Op Med Cln Tm A Ad) [address] [place] [address])(War rior Op Med Cln Tm A Ad) OUTPATIENT [id number] sore throat, low grade temp 99-100, sinus congest ion, achines s TENZIN HOPE 06/29 Released w/o Limitations [address] [place] [address])(W arrior Op Med Cln Tm A Ad) [address] [place] [address])(War rior Op Med Cln Tm A Ad) TELE CONSULT [id number] Notes Entered by: ELISABET JOHNSON 02 Jul 2017 1226 ------- ------- ------- ------- -- Positiv e Strep Throat Culture TENZIN HOPE 07/[address] [place] [address])(W arrior Op Med Cln Tm A Ad) [address] [place] [address])(Telecine Operator ecology) OUTPATIENT [id number] bloody dischar ge x 1 week - [phone] AMAYA BAEZ 07/20 Released w/o Limitations [address] [place] [address])(G ynecolo gy) [address] [place] [address])(Telecine Operator ecology) TELE CONSULT [id number] Notes Entered by: KYLE BAEZ 10 Aug 2017 1317 ------- ------- ------- ------- -- Test results VERONICA JOHNS 08/[address] [place] [address])(G ynecolo gy) [address] [place] [address])(Fam jesus Med Tm B Non-AD BCC) OUTPATIENT [id number] [facility] F/U-SX Persist Ringing L ear/cou gh/sirisha estion [id number] KOBE SELF 09/08 Released w/o Limitations [address] [place] [address])(F amily Med Tm B Non-AD BCC) [address] [place] [address])(Med ication Refill Clinic) TELE CONSULT [id number] Notes Entered by: JUAN ALBERTO GRIMM 10 Sep 2017 0839 ------- ------- ------- ------- -- Med Renewal /Kathy gnaster/618 .741.40 DARIEN, RAVIN J 09/[address] [place] [address])(Michel bob on Refill Clinic) [address] [place] [address])(Andrew rior Op Med Cln Tm A Ad) TELE CONSULT [id number] Notes Entered by: HORTENCIA OLGUIN RET 13 Sep 2017 1022 ------- ------- ------- ------- -- SX: Left Ear pain/Ch sharifagne / [facility] DARIEN, RAVIN J 09/[address] [place] [address])(W arrior Op Med Cln Tm A Ad) [facility] Medical [facility])(War rior Op Med Cln Tm A Ad) TELE CONSULT [id number] Notes Entered by: ALEJO BERNAL 23 Sep 2017 1159 ------- ------- ------- ------- -- Network Results Emergen cy Room 09/02/17 RK CANDI ARNOLD 09/[address] [place] [address] [place] [facility])(W arrior Op Med Cln Tm A Ad) [address] [place] [address])(Telecine Operator ecology) OUTPATIENT [id number] discuss bt/[facility] coils - [phone] KARI QUINONES 10/05 Released w/o Limitations [address] [place] [address])(G ynecodenis gy) [facility] Medical [facility])(Ob/ Telecine Operator) TELE CONSULT [id number] YONG FLORES 10/[address] [place] [address])(O b/Telecine Operator) [address] [place] [address])(War rior Op Med Cln Tm A Ad) TELE CONSULT [id number] Notes Entered by: Vidal YEUNG 12 Oct 2017 1047 ------- ------- ------- ------- -- Network results Lesly holt gy 018 TENZIN MIDDLETON 10/[address] [place] [address])(W arrior Op Med Cln Tm A Ad) [address] [place] [address])(Telecine Operator ecology) TELE CONSULT [id number] Notes Entered by: Dilma ALVAREZ 12 Oct 2017 1334 ------- ------- ------- ------- -- Surgery reminde r 13 OCT 2017 NICCI ALVAREZ 10/[address] [place] [address])(G yneshraddha gy) [address] [place] [address])(Telecine Operator ecology) TELE CONSULT [id number] Notes Entered by: LORNA LOZASUSAN 15 Oct 2017 1356 ------- ------- ------- ------- -- Scanned carlotta gy report into KARI STAHL 10/[address] [place] [address])(G ynecolo gy) [address] [place] [address])(Med ication Refill Clinic) TELE CONSULT [id number] Notes Entered by: SAILAJA DEVLIN 21 Oct 2017 1004 ------- ------- ------- ------- -- Med Renewal / [place] / - sgWICHO Decker 10/[address] [place] [address])(Michel bob on Refill Clinic) [address] [place] [address])(War rior Op Med Cln Tm A Ad) TELE CONSULT [id number] Notes Entered by: KARTHIK SANDOVAL 22 Oct 2017 1018 ------- ------- ------- ------- -- Sx: Cough, congest ion - [place] - - tsg* URI SARABIA 10/22 Other Not Elsewhere Classified [address] [place] [address])(W arrior Op Med Cln Tm A Ad) [address] [place] [address])(Telecine Operator ecology) OUTPATIENT [id number] post op - [phone] KARI QUINONES 10/26 Released w/o Limitations [address] [place] [address])(G ynecolo gy) [address] [place] [address])(War rior Op Med Cln Tm A Ad) TELE CONSULT [id number] Notes Entered by: JOSE BURRIS 01 Nov 2017 1036 ------- ------- ------- ------- -- Med refill / [place] WICHO Cain 11/[address] [place] [address])(W arrior Op Med Cln Tm A Ad) [address] [place] [address])(War rior Op Med Cln Tm A Ad) OUTPATIENT [id number] Feels tired/r un down/we ight gain/giraldo ir/skin very dry [id number] TENZIN HOPE 12/13 Released w/o Limitations [address] [place] [address])(W arrior Op Med Cln Tm A Ad) [address] [place] [address])(War rior Op Med Cln Tm A Ad) TELE CONSULT [id number] Notes Entered by: ELISABET JOHNSON 14 Dec 2017 1050 ------- ------- ------- ------- -- Lab results DARIEN, RAVIN J 12/[address] [place] [address])(W arrior Op Med Cln Tm A Ad) [address] [place] [address])(War rior Op Med Cln Tm A Ad) OUTPATIENT [id number] F/U for low Vitamin D - still feeling tired - decline d Virtual [id number] ANTONIO DIGGS 03/02 Released w/o Limitations [address] [place] [address])(W arrior Op Med Cln Tm A Ad) [address] [place] [address])(Telecine Operator ecology) TELE CONSULT [id number] Notes Entered by: SUSAN CONTRERAS 05 Apr 2018 0733 ------- ------- ------- ------- -- Possibl e yeast infecti on and herpes outbrea NICCI Seo 04/05 Referred for Appointment [address] [place] [address])(Geoffrey razo gy) [address] [place] [address])(War rior Op Med Cln Tm A Ad) TELE CONSULT [id number] Notes Entered by: LUCY PATEL 10 May 2018 1432 ------- ------- ------- ------- -- Med Renewal Request / [place] / - ajh NEILRAMIREZWICHO Rodarte Delgado 05/10 Referred for Appointment [address] [place] [address])(W arrior Op Med Cln Tm A Ad) [address] [place] [address])(Telecine Operator ecology) OUTPATIENT [id number] dISCUSS treatme nt options for herpes outbrea ks [id number] (pt request ) KARI QUINONES 05/24 Released w/o Limitations [address] [place] [address])(G ynecolo gy) [address] [place] [address])(War rior Op Med Cln Tm A Ad) TELE CONSULT [id number] Notes Entered by: JUAN ALBERTO GRIMM 15 Aug 2018 1042 ------- ------- ------- ------- -- 2nd opinion Ling newton Request /Yessy rodarte/ GEOVANI JARVIS 08/15 Other Not Elsewhere Classified [address] [place] [address])(W arrior Op Med Cln Tm A Ad) [address] [place] [address])(Telecine Operator ecology) OUTPATIENT [id number] 0 3 month f/u medicat ion - [phone] KARI QUINONES 09/12 Released w/o Limitations [address] [place] [address])(G ynecolo gy) [address] [place] [address])(War rior Op Med Cln Tm A Ad) OUTPATIENT [id number] 1 Sinus Drainag e and Pressur e, [phone] ANTONIO DIGGS 11/16 Released w/o Limitations [address] [place] [address])(W arrior Op Med Cln Tm A Ad) [address] [place] [address])(War rior Op Med Cln Tm A Ad) TELE CONSULT [id number] Notes Entered by: PRAKASH BRICENO 16 Nov 2018 1111 ------- ------- ------- ------- -- Pt needs written prescri ption for ama pharmac y told her they are out of it EDUARDA MORANIFER Delgado 11/16 Medication Refill Forwarded [facility] [place] [facility] ([facility])(W arrior Op Med Cln Tm A Ad) [...] NUTRITION THERAPY; INITIAL ASSESSMENT AND INTERVENTION, INDIVIDUAL, [id number] WITH THE PATIENT, EACH 15 MINUTES 11/02 [...] FOR CONSULTATION ONLY,NOT FOR CONT CARE)] 10/19 [facility] PSYCHOTHERAPY, 60 MINUTES WITH PATIENT 10/17 DoD SUBSEQ CARE VISIT () [EXCLS:PATIENTS WHO ARE SEEN FOR A CONDITION UNREL TO / CARE (EG,AN UP RESPIR INFECT;PATIENTS SEEN FOR CONSULTATION ONLY,NOT FOR CONT CARE)] 10/13 DoD SUBSEQ CARE VISIT () [EXCLS:PATIENTS WHO ARE SEEN FOR A CONDITION UNREL TO / CARE (EG,AN UP RESPIR INFECT;PATIENTS SEEN FOR CONSULTATION ONLY,NOT FOR CONT CARE)] 10/05 [facility] FAMILY PSYCHOTHERAPY (CONJOINT PSYCHOTHERAPY) (WITH PATIENT PRESENT), 50 MINUTES 10/04 [facility]D PSYCHOTHERAPY, 60 MINUTES WITH PATIENT 09/28 [facility] SUBSEQ CARE VISIT () [EXCLS:PATIENTS WHO ARE SEEN FOR A CONDITION UNREL TO / CARE (EG,AN UP RESPIR INFECT;PATIENTS SEEN FOR CONSULTATION ONLY,NOT FOR CONT CARE)] 09/25 [facility] SUBSEQ CARE VISIT () [EXCLS:PATIENTS WHO ARE SEEN FOR A CONDITION UNREL TO / CARE (EG,AN UP RESPIR INFECT;PATIENTS SEEN FOR CONSULTATION ONLY,NOT FOR CONT CARE)] 09/21 [facility] PSYCHOTHERAPY, 60 MINUTES WITH PATIENT 09/21 [facility] SUBSEQ CARE VISIT () [EXCLS:PATIENTS WHO ARE SEEN FOR A CONDITION UNREL TO / CARE (EG,AN UP RESPIR INFECT;PATIENTS SEEN FOR CONSULTATION ONLY,NOT FOR CONT CARE)] 09/15 [facility] PSYCHIATRIC DIAGNOSTIC EVALUATION 09/14 [facility] SUBSEQ CARE VISIT () [EXCLS:PATIENTS WHO ARE SEEN FOR A CONDITION UNREL TO / CARE (EG,AN UP RESPIR INFECT;PATIENTS SEEN FOR CONSULTATION ONLY,NOT FOR CONT CARE)] 09/08 [facility] SUBSEQ CARE VISIT () [EXCLS:PATIENTS WHO ARE SEEN FOR A CONDITION UNREL TO / CARE (EG,AN UP RESPIR INFECT;PATIENTS SEEN FOR CONSULTATION ONLY,NOT FOR CONT CARE)] 08/28 [facility] SUBSEQ CARE VISIT () [EXCLS:PATIENTS WHO ARE SEEN FOR A CONDITION UNREL TO / CARE (EG,AN UP RESPIR INFECT;PATIENTS SEEN FOR CONSULTATION ONLY,NOT FOR CONT CARE)] 08/17 [facility] SUBSEQ CARE VISIT () [EXCLS:PATIENTS WHO ARE SEEN FOR A CONDITION UNREL TO / CARE (EG,AN UP RESPIR INFECT;PATIENTS SEEN FOR CONSULTATION ONLY,NOT FOR CONT CARE)] 07/18 [facility] SUBSEQ CARE VISIT () [EXCLS:PATIENTS WHO [...] OUTPATIENT FACILITY, APPROXIMATELY 20 TO 30 MINUTES [id number] WITH THE PATIENT 01/31 DoD INDIVIDUAL PSYCHOTHERAPY, INSIGHT ORIENTED, BEHAVIOR MODIFYING AND/OR SUPPORTIVE, IN AN OFFICE OR OUTPATIENT FACILITY, APPROXIMATELY 45 TO 50 MINUTES [id number] WITH THE PATIENT 01/10 [facility]D PSYCHIATRIC DIAGNOSTIC INTERVIEW EXAMINATION 01/06 [facility] URINE TEST, BY VISUAL COLOR COMPARISON [...] FOR CONSULTATION ONLY,NOT FOR CONT CARE)] 06/03 [facility] INFLUENZA VIRUS VACCINE, TRIVALENT (IIV3), SPLIT VIRUS, 0.5 ML DOSAGE, FOR INTRAMUSCULAR USE 05/16 [facility] SUBSEQ CARE VISIT () [EXCLS:PATIENTS WHO ARE SEEN FOR A CONDITION UNREL TO / CARE (EG,AN UP RESPIR INFECT;PATIENTS SEEN FOR CONSULTATION ONLY,NOT FOR CONT CARE)] 05/16 [facility] SUBSEQ CARE VISIT () [EXCLS:PATIENTS WHO ARE SEEN FOR A CONDITION UNREL TO / CARE (EG,AN UP RESPIR INFECT;PATIENTS SEEN FOR CONSULTATION ONLY,NOT FOR CONT CARE)] 04/16 [facility] SUBSEQ CARE VISIT () [EXCLS:PATIENTS WHO ARE SEEN FOR A CONDITION UNREL TO / CARE (EG,AN UP RESPIR INFECT;PATIENTS SEEN FOR CONSULTATION ONLY,NOT FOR CONT CARE)] 03/25 [facility] SUBSEQ CARE VISIT () [EXCLS:PATIENTS WHO ARE SEEN FOR A CONDITION UNREL TO / CARE (EG,AN UP RESPIR INFECT;PATIENTS SEEN FOR CONSULTATION ONLY,NOT FOR CONT CARE)] 02/20 [facility] SUBSEQ CARE VISIT () [EXCLS:PATIENTS WHO ARE SEEN FOR A CONDITION UNREL TO / CARE (EG,AN UP RESPIR INFECT;PATIENTS SEEN FOR CONSULTATION ONLY,NOT FOR CONT CARE)] 01/23 [facility] INDIVIDUAL PSYCHOTHERAPY, INSIGHT ORIENTED, BEHAVIOR MODIFYING AND/OR SUPPORTIVE, IN AN OFFICE OR OUTPATIENT FACILITY, APPROXIMATELY 20 TO 30 MINUTES [id number] WITH THE PATIENT 01/02 [facility] SUBSEQ CARE VISIT () [EXCLS:PATIENTS WHO ARE SEEN FOR A CONDITION UNREL TO / CARE (EG,AN UP RESPIR INFECT;PATIENTS SEEN FOR CONSULTATION ONLY,NOT FOR CONT CARE)] 01/02 [facility] URINE TEST, BY VISUAL COLOR COMPARISON METHODS 11/02 [facility] TOBACCO USE CESSATION INTERVENTION, COUNSELING (COPD, CAP, CAD, ASTHMA) (DM) (PV) 10/03 [facility] SCREENING PAPANICOLAOU SMEAR; OBTAINING, PREPARING AND CONVEYANCE OF CERVICAL OR VAGINAL SMEAR TO LABORATORY 09/18 [facility] HEPATITIS B VACCINE (HEPB), ADULT DOSAGE, 3 DOSE SCHEDULE, FOR INTRAMUSCULAR USE 07/05 [facility] HEPATITIS B VACCINE (HEPB), ADULT DOSAGE, 3 DOSE SCHEDULE, FOR INTRAMUSCULAR USE 04/04 [facility] Ultrasound Obstetric Limited Evaluation Ultrasound Obstetric Limited Evaluation 72590 05/25 ZACK DWYERILY Reynaldo [facility] OB Services Antepartum Care Only Subsequent Single Visit OB Services Antepartum Care Only Subsequent Single Visit 0502F 05/25 ZACK DWYERILY Reynaldo [facility] Ultrasound Trans-[place] [address] 05/05 GIOVANNICLEMENTINA [facility] OB Services Antepartum Care Only Subsequent Single Visit OB Services Antepartum Care Only Subsequent Single Visit 0502F 05/05 CLEMENTINA DAVILA Ultrasound Trans[place] [address] 05/02 CLEMENTINA DAVILA [facility] OB Services Antepartum Care Only First Visit, With Report OB Services Antepartum Care Only First Visit, With Report 0500F 05/02 CLEMENTINA DAVILA [facility] Non-Physician Phone Call To Patient/Provider Brief (5-10min) Non-Physician Phone Call To Patient/Provider Brief (5-10min) 74995 04/28 EB DOMINGO [facility] Non-Physician Phone Call To Patient/Provider Brief (5-10min) Non-Physician Phone Call To Patient/Provider Brief (5-10min) 39778 03/09 JODIE RODRIGUEZ [facility] Non-Physician Phone Call To Patient/Provider Brief (5-10min) Non-Physician Phone Call To Patient/Provider Brief (5-10min) 60173 03/03 JODIE RODRIGUEZ [facility] Electrocardiogram Electrocardiogram 96052 02/21 RAHUL SCHMITT [facility] Psychiatric Evaluation Review of Records and Reports Psychiatric Evaluation Review of Records and Reports 48652 11/14 WICHO SOMMERS [facility] Non-Physician Phone Call To Pt/Provider Intermed (11-20 min) Non-Physician Phone Call To Pt/Provider Intermed (11-20 min) 51273 06/22 JE WHITFIELD [facility] Psychiatric Therapy Individual Approximately 20-30 Minutes Psychiatric Therapy Individual Approximately 20-30 Minutes [id number] 01/31 WICHO SOMMERS [facility] Social Work Individual Outpatient Counseling 45-50 Minutes Social Work Individual Outpatient Counseling 45-50 Minutes 33834 01/10 SALOMÓN OLIVAS [facility] Psychiatric Evaluation Comprehensive Examination Psychiatric Evaluation Comprehensive Examination 40859 01/06 KEVIN THURMAN [facility] Test Test 17024 08/05 KELSIE INIGUEZ [facility] Rapid Antigen Identification Streptococcus Group A Beta Hemolytic Rapid Antigen Identification Streptococcus Group A Beta Hemolytic 44649 08/05 MONI BOSS [facility] Non-Physician Phone Call To Patient/Provider Brief (5-10min) Non-Physician Phone Call To Patient/Provider Brief (5-10min) 42230 03/31 GENA FRANKS [facility] Gynecologic Services Intrauterine Device (IUD) Removal Gynecologic Services Intrauterine Device (IUD) Removal 10868 01/22 BRIE CRUZ [facility] Determination Of Refractive State Determination Of Refractive State 85341 12/31 LUZ MUHAMMAD [facility] Ophthalmological New Patient Start Comprehensive Care Ophthalmological New Patient Start Comprehensive Care 44941 12/31 LUZ MUHAMMAD [facility] Non-Physician Phone Call To Patient/Provider Brief (5-10min) Non-Physician Phone Call To Patient/Provider Brief (5-10min) 22721 12/19 VASU CARPENTER [facility] Influenza Virus Vaccine Live Intranasal 08/29 LEXY BRICENO [facility] Immunization Administration One Vaccine Immunization Administration One Vaccine 25871 08/29 LEXY BRICENO [facility] Gynecologic Services Intrauterine Device (IUD) Insertion Gynecologic Services Intrauterine Device (IUD) Insertion [id number] 08/20 BRIE CRUZ [facility] Non-Physician Phone Call To Patient/Provider Brief (5-10min) Non-Physician Phone Call To Patient/Provider Brief (5-10min) 73099 08/14 ALDO DAY [facility] Obstetrical Services Care Visit Obstetrical Services Care Visit 0503F 08/06 BRIE CRUZ [facility] OB Services Antepartum Care Only Subsequent Single Visit OB Services Antepartum Care Only Subsequent Single Visit 0502F 06/18 JE ARIZA [facility] Vaginal FEDERICO Prep Vaginal FEDERICO Prep 42006 06/11 BRIE CRUZ Vaginal [place]ag[place] 33768 06/11 BRIE CRUZ [facility] OB Services Antepartum Care Only Subsequent Single Visit OB Services Antepartum Care Only Subsequent Single Visit 0502F 06/11 BRIE CRUZ OB Services Antepartum Care Only Subsequent Single Visit OB Services Antepartum Care Only Subsequent Single Visit 0502F 06/03 JE ARIZA [facility] Immunization Administration One Vaccine Immunization Administration One Vaccine 19812 05/16 AL TALBOT [facility] Influenza Split Virus Vaccine Age 3+ Years Intramuscular 05/16 AL TALBOT [facility] OB Services Antepartum Care Only Subsequent Single Visit OB Services Antepartum Care Only Subsequent Single Visit 0502F 04/16 CESARIO JEFFERY [facility] OB Services Antepartum Care Only Subsequent Single Visit OB Services Antepartum Care Only Subsequent Single Visit 0502F 03/25 MARGARETTE TABARES [facility] OB Services Antepartum Care Only Subsequent Single Visit OB Services Antepartum Care Only Subsequent Single Visit 0502F 02/20 ZACK TOWNSEND [facility] OB Services Antepartum Care Only Subsequent Single Visit OB Services Antepartum Care Only Subsequent Single Visit 0502F 01/23 JE LUNA [facility] Psychiatric Therapy Individual Approximately 20-30 Minutes Psychiatric Therapy Individual Approximately 20-30 Minutes [id number] 01/02 YARITZA ORTIZ [facility] OB Services Antepartum Care Only Subsequent Single Visit OB Services Antepartum Care Only Subsequent Single Visit 0502F 01/02 JE LUNA [facility] Intervention And Counseling On Ce ation Of Tobacco Use Intervention And Counseling On Cessation Of Tobacco Use 4000F 10/03 MARGARETTE TABARES [facility] Screening papanicolaou smear; obtaining, preparing and conveyance of cervical or vaginal smear to laboratory 09/18 WANDA FELICIANO [facility] Hepatitis B Vaccine (Active); 20 Years and Above 07/05 ADELINE GU [facility] Immunization Administration One Vaccine Immunization Administration One Vaccine 20312 07/05 ADELINE GU [facility] Hepatitis B Vaccine (Active); 20 Years and Above 04/04 ILA GARCIA DoD Immunization Administration One Vaccine Immunization Administration One Vaccine 64768 04/04 ILA GARCIA [facility] Non-Physician Phone Call To Patient/Provider Brief (5-10min) Non-Physician Phone Call To Patient/Provider Brief (5-10min) [id number] 11/16 MAUDE MORA [facility] Non-Physician Phone Call To Patient/Provider Brief (5-10min) Non-Physician Phone Call To Patient/Provider Brief (5-10min) 97611 08/15 GEOVANI JARVIS [facility] Disease management program, follow-up/christofer e ment 05/17 WICHO RUCKER [facility] Non-Physician Phone Call To Patient/Provider Brief (5-10min) Non-Physician Phone Call To Patient/Provider Brief (5-10min) 08256 04/05 NICCI ALVAREZ [facility] Disease management program, follow-up/christofer e ment 11/01 TENZIN HOPE [facility] Disease management program, follow-up/christofer e ment 10/22 CANDI ARNOLD [facility] Non-Physician Phone Call To Patient/Provider Brief (5-10min) Non-Physician Phone Call To Patient/Provider Brief (5-10min) [id number] 10/22 URI SARABIA [facility] Non-Physician Phone Call To Patient/Provider Brief (5-10min) Non-Physician Phone Call To Patient/Provider Brief (5-10min) 30232 10/12 NICCI ALVAREZ [facility] Non-Physician Phone Call To Patient/Provider Brief (5-10min) Non-Physician Phone Call To Patient/Provider Brief (5-10min) 28726 09/13 RAVIN LEDEZMA [facility] Non-Physician Phone Call To Patient/Provider Brief (5-10min) Non-Physician Phone Call To Patient/Provider Brief (5-10min) 43913 09/10 DARIENRAVIN [facility] Vaginal Wet [place] Vaginal [place] 15727 07/20 AMAYA BAEZ [facility] Non-Physician Phone Call To Patient/Provider Brief (5-10min) Non-Physician Phone Call To Patient/Provider Brief (5-10min) 32303 06/29 RAVIN LEDEZMA [facility] Disease management program, follow-up/christofer e ment 04/16 PLACIDO MACHUCA [facility] Non-Physician Phone Call To Patient/Provider Brief (5-10min) Non-Physician Phone Call To Patient/Provider Brief (5-10min) 54155 02/25 RAVIN LEDEZMA [facility] Psychiatric Evaluation Review of Records and Reports Psychiatric Evaluation Review of Records and Reports 39565 09/22 ZACHARY AVERY [facility] Gynecologic Services Intrauterine Device (IUD) Insertion Gynecologic Services Intrauterine Device (IUD) Insertion [id number] 04/21 KARI QUINONES [facility] Hysterosalpingograp hy With Catheter Contrast Injection Hysterosalpingogra phy With Catheter Contrast Injection 87191 04/14 KARI QUINONES Procedure: A final timeout [...] was informed of these results. No complications. [facility] Screening papanicolaou smear; obtaining, preparing and conveyance of cervical or vaginal smear to laboratory 03/04 AMAYA BAEZ [facility] Vaginal Wet [place] Vaginal [place] 22620 03/04 AMAYA BAEZ [facility] Hysterosalpingograp hy With Catheter Contrast Injection Hysterosalpingogra phy With Catheter Contrast Injection 89164 01/06 GIANNA STRAUSS [facility] Psychoactive Medication Management Psychoactive Medication Management 48001 11/28 ZACHARY AVERY [facility] Non-Physician Phone Call To Patient/Provider Brief (5-10min) Non-Physician Phone Call To Patient/Provider Brief (5-10min) 87043 10/14 DIMPLE JOHNSON [facility] Non-Physician Phone Call To Patient/Provider Brief (5-10min) Non-Physician Phone Call To Patient/Provider Brief (5-10min) 82691 10/10 DIMPLE JOHNSON [facility] Conscious Sedation By Dr May Service 5 Yrs Or Older Conscious Sedation By Dr May Service 5 Yrs Or Older 89874 10/09 PRIYA CHOI [facility] Non-Physician Phone Call To Patient/Provider Brief (5-10min) Non-Physician Phone Call To Patient/Provider Brief (5-10min) 49509 10/03 FAMILIA THOMPSON [facility] Non-Physician Phone Call To Patient/Provider Brief (5-10min) Non-Physician Phone Call To Patient/Provider Brief (5-10min) 76019 10/01 JOE ASH Non-Physician Phone Call To Patient/Provider Brief (5-10min) Non-Physician Phone Call To Patient/Provider Brief (5-10min) 55403 08/26 JOE ASH Non-Physician Phone Call To Patient/Provider Brief (5-10min) Non-Physician Phone Call To Patient/Provider Brief (5-10min) 29789 08/22 MANN COLON Psych Ther Indiv Interact Appr 20-30 Min W/ Med Eval Manage 06/20 ZACHARY AVERY Psych Ther Indiv Interact Appr 45-50 Min W/ Med Eval Manage 05/17 ZACHARY AVERY Non-Physician Phone Call To Patient/Provider Brief (5-10min) Non-Physician Phone Call To Patient/Provider Brief (5-10min) 39131 04/26 MANN COLON Psych Ther Indiv Interact Appr 45-50 Min W/ Med Eval Manage 04/16 ZACHARY AVERY Vaginal [place] Vaginal [place] 44245 04/11 AMAYA BAEZ [facility] Non-Physician Phone Call To Patient/Provider Brief (5-10min) Non-Physician Phone Call To Patient/Provider Brief (5-10min) 24331 04/10 ANANDA WILLAMS [facility] Psych Ther Indiv Interact Appr 45-50 Min W/ Med Eval Manage 02/18 ZACHARY AVERY Psych Ther Indiv Interact Appr 45-50 Min W/ Med Eval Manage 01/01 ZACHARY AVERY Psych Ther Indiv Interact Appr 45-50 Min W/ Med Eval Manage 11/19 ZACHARY AVERY [facility] Psych Ther Indiv Interact Appr 45-50 Min W/ Med Eval Manage 10/23 ZACHARY AVERY [facility] Non-Physician Phone Call To Patient/Provider Brief (5-10min) Non-Physician Phone Call To Patient/Provider Brief (5-10min) 23804 09/21 MANN COLON [facility] Psych Ther Indiv Interact Appr 45-50 Min W/ Med Eval Manage 09/06 ZACHARY AVERY [facility] Psych Ther Indiv Interact Appr 45-50 Min W/ Med Eval Manage 07/24 ZACHARY AVERY [facility] OB Services Antepartum Care Only Subsequent Single Visit OB Services Antepartum Care Only Subsequent Single Visit 0502F 06/30 CLEMENTINA DAVILA [facility] Psychiatric Therapy Individual Approximately 45-50 Minutes 06/21 CATHY TOMAS [facility] Test Test 60716 06/18 LUISANA DEVLIN MELO [facility] Gynecologic Services Intrauterine Device (IUD) Insertion Gynecologic Services Intrauterine Device (IUD) Insertion [id number] 06/18 LUISANA DEVLIN [facility] Psychiatric Therapy Individual Approximately 45-50 Minutes 06/04 CATHY TOMAS [facility] Vaginal Wet [place] Vaginal [place] 07068 06/04 LUISANA DEVLIN [facility] Social Work Individual Outpatient Counseling 45-50 Minutes 05/17 CATHY TOMAS [facility] [facility] Psychiatric Therapy Individual Approximately 45-50 Minutes 04/25 CATHY TOMAS [facility] Gynecologic Services Diaphragm Fitting With Instructions Gynecologic Services Diaphragm Fitting With Instructions [id number] 02/20 ALYSSA COLÓN [facility] Social Work Individual Outpatient Counseling 45-50 Minutes 01/30 CATHY TOMAS [facility] OB Services Antepartum Care Only Subsequent Single Visit OB Services Antepartum Care Only Subsequent Single Visit [id number] 11/27 CLEMENTINA DAVILA [facility] OB Services Antepartum Care Only Subsequent Single Visit OB Services Antepartum Care Only Subsequent Single Visit [id number] 11/14 GUERRERO DWYER [facility] Non-Physician Phone Call To Patient/Provider Brief (5-10min) Non-Physician Phone Call To Patient/Provider Brief (5-10min) [id number] 11/08 GAYE DECKER [facility] Medical Nutrition Therapy Initial A e ment, Intervention Medical Nutrition Therapy Initial Assessment, Intervention [id number] 11/03 REYES LOPEZ [facility] Non-Physician Phone Call To Patient/Provider Brief (5-10min) Non-Physician Phone Call To Patient/Provider Brief (5-10min) [id number] 10/30 GAYE DECKER [facility] OB Services Antepartum [...] GUERRERO B [facility] Psychiatric Evaluation Psychiatric Evaluation [id number] 09/15 CATHY TOMAS [facility] OB Services Antepartum [...] Single Visit 0502F 07/06 VIOLET WALKER [facility] No data available for this section Ambulato ry Pharmacy Social History Combined list of available smoking, tobacco, and other social history from [facility] and [facility] facilities. Social History Type Response Date Comment Sourc e This section is an empty soc ial history section. [facility] Sexual Orientation Ambula tory Pharmacy Gender identity [...] of Defense and Veterans Affairs (VA).VA Functional Maries Measurement (FIM) Scale: 1 = Total Assistance (Subject = 0% +), 2 = Maximal Assistance (Subject = 25% +), 3 = Moderate Assistance (Subject = 50% +), 4 = Minimal Assistance (Subject = 75% +), 5 = Supervision, 6 = Modified Maries (Device), 7 = Complete Maries (Timely, Safely). Assessment Date/Time Source Assessment Type Assessment Skill Assessment Score Assessment Details No data available for this section
== END 2025-01-04 15:13 | disposition home or self-care (01) ==
PROVIDERS: Emergency Provider Emergency Medicine; PCP Student in an Organized Health Care Education/Training Program
DX: T63.441A Toxic effect of venom of bees, accidental (unintentional), initial encounter (principal); F17.210 Nicotine dependence, cigarettes, uncomplicated
CPT/HCPCS: 93005; 99283

== ENCOUNTER 2025-01-23 11:51 | Outpatient (CLI) | payer OTHER, SELFPAY | END 2025-01-23 11:52 | disposition home or self-care (01) | PROVIDERS: PCP Student in an Organized Health Care Education/Training Program; Visit Provider Obstetrics & Gynecology | DX: R10.2 Pelvic and perineal pain (principal) | CPT/HCPCS: 36415; 86850; 86900; 86901 ==

== ENCOUNTER 2025-01-24 01:09 | Day surgery (SDC) | payer OTHER, SELFPAY ==
[2025-01-22 15:54] VITALS: BMI 26.7
--- NOTE | 2025-01-22 16:03 | PC.NURSE ---
Report to the Outpatient Waiting Room, entrance under the green pavilion located off [facility], at time _1000_ on date _[phone]_. Planned Procedure Time: _1200_.? Time changes happen often and if your time is changed the preop area will call you the afternoon before. - You and your visitor will be asked to self-screen and do not enter if you have any COVID symptoms. Please call surgeon if you need to reschedule. - A mask is optional within the hospital at this time. Patients may have clear liquids (water, carbonated beverages, clear teas, apple juice) until 3 hours prior to surgery with a maximum of 20 ounces. - No food from midnight until time of surgery and no smoking, or chewing tobacco (or any form of nicotine). No chewing gum, candy or mints. Take only the following medications with a SIP of water on the morning of surgery: __If needed Hydrocodone and or Albuterol____ DO NOT STOP ANY OF YOUR OTHER PRESCRIPTION MEDICATIONS PRIOR TO SURGERY EXCEPT THE FOLLOWING Hold all vitamins and supplements for 3 days per anesthesiologist. Stop now. Medications to discontinue per physician Date to take last dose____ Please no make-up, nail eritrean, hairspray, perfume, deodorant, or body powder the day of surgery.? No jewelry (including any body piercings) or valuables the day of surgery, leave them at home.? Please take a shower or bath the night before, or the morning of, surgery with an antibacterial soap.? Wear comfortable, loose fitting clothing.? - Jewelry must be removed prior to entering the operating room.? Rings and piercings that are not removed may be cut off. - The hospital will not accept responsibility for valuables.? - Please leave all valuables, including medications, at home the day of surgery. If you are going home after surgery, a licensed vibratory pile driver must drive you home.? - NO public transportation without another adult if you receive anesthesia. - We recommend that an adult stay with you for 24 hours following discharge. - We also recommend that you do not drive, make important decision, drink alcoholic beverages, or take any drugs that were not prescribed by your health care provider for at least 24 hours after your discharge time. Follow any additional instructions given to you from your surgeon. Telephone instructions given to __Connie__and asked if any additional questions and then verbalized understanding. Patient advised to call surgeon office or pre surgery nurse liaison [phone] if any additional questions.
[2025-01-24] VITALS (9 sets, daily range): BP systolic 129–147; BP diastolic 68–85; PULSE 76–92; RESP 16–20; TEMP 36.2–37.2; O2SAT 95–100; BMI 26.5
[2025-01-24] MEDS: ACETAMINOPHEN 500 MG TABLET 1000 MG PO ×2 (11:15→17:32)
[2025-01-24] MEDS: KETOROLAC 15 MG/ML VIAL (*BKC) IV PUSH (11:15)
[2025-01-24] MEDS: LACTATED RINGERS 1,000 ML 30 ML IV CONT ×2 (11:30→14:01)
--- NOTE | 2025-01-24 11:30 | WPDHPUPDATE1 ---
History and Physical Update Update Date/Time: 01/24/25 11:30 History and Physical has been reviewed, including an updated exam of the patient. There are NO changes in the patient's condition. Risks, benefits, and alternatives have been discussed and questions answered. Patient agrees to proceed with procedure.
--- NOTE | 2025-01-24 11:51 | P.PNAN_ITS ---
Anes - Initial Pre Proc Eval Procedure: Operation Date: 01/24/25 12:00 Proposed Procedures p Robotic Assisted Hysterectomy with Bilateral Salpingectomy - Chidi Betancourt MD Date/Time: 01/24/25 11:51 Surgeon: Chidi Betancourt MD Pre Op Diagnosis: pelvic pain Patient Data Age: 49 Gender: F Height: 1.57 m Weight: 66.4 kg Allergies Allergy/AdvReac Type Severity Reaction Status Date / Time escitalopram (From Lexapro) Allergy Mild Unknown Verified 01/22/25 15:51 metoclopramide (From Reglan) AdvReac Mild Unknown Verified 01/22/25 15:51 sertraline AdvReac Unknown INTENSIFIES Verified 01/22/25 15:51 ANXIETY Home Medications ?Medication ?Instructions ?Recorded ?Confirmed ?Type amitriptyline 25 mg tablet 25 mg PO HS 12/04/21 01/22/25 History albuterol sulfate 90 mcg/actuation 2 puff inhalation Q6H PRN 10/05/24 01/22/25 History aerosol inhaler shortness of breath or wheezing hydrocodone 5 mg-acetaminophen 325 1 tablet PO Q6H PRN pain 12/05/24 01/22/25 History mg tablet ibuprofen 600 mg tablet 600 mg PO TID #20 tabs 01/04/25 01/22/25 Rx cholecalciferol (vitamin D3) 25 50 mcg PO DAILY 01/22/25 01/22/25 History mcg (1,000 unit) capsule (Vitamin D3) Patient hx anesthesia problems: none Family hx anesthesia problems: none Results Review: All pre-operative results and documents have been reviewed as part of the pre- operative evaluation. [facility] Past Medical History Medical History (Updated 01/23/25 @ 08:06 by Collin Reddy DO) Anxiety Seasonal asthma Cktibjv-Egoaq-Zsucj disease Obesity Dyspepsia Enterocolitis Belching Gas bloat syndrome Irritable bowel syndrome with diarrhea History of migraine Irritable bowel syndrome Surgical History Surgical History No pertinent past surgical history Social History Social History Years smoked: 26 Smoking status: Current every day smoker Tobacco type: cigarettes and e-cigarettes/vaping Additional smoking assessment comments: Vapes inside, smokes outside. Alcohol intake: current Substance use type: marijuana Other substance usage details: Every now and then for sleep Living arrangements: with family Spiritual care concerns: No Anes - Eval Final PreProcedure Day of Procedure 01/24/25 11:51 Patient weight: overweight Heart: regular rate and rhythm Lungs: clear to auscultation Airway: Mallampati scale class III Neurological: alert and oriented Last oral intake: >/= 8 hours ASA classification: II Emergent: no Anesthetic plan: proceed Anesthesia type and monitoring: general ETT and standard monitoring Results Review: All pre-operative results and documents have been reviewed as part of the pre- operative evaluation. Informed Consent: The patient's anesthetic plan and its attendant risks and benefits were discussed with the patient/family/POA. Questions were solicited and answers provided to the satisfaction of the patient/family/POA.
[2025-01-24] MEDS: ceFAZolin 2 GM/D5W 50 ML 2 GM/50 ML BAG IVPB (12:12)
[2025-01-24] MEDS: ceFAZolin SODIUM 1 GM VIAL (12:43)
--- NOTE | 2025-01-24 13:34 | S_PTH ---
PATIENT: Tori Jamison LOC: [facility] U#:[id number] AGE/SX: 49/F ROOM: RE01/24/[address]: Chidi Betancourt MD : 1975 BED: DIS: 01/25/2025 SPEC #: [id number] RECD: 01/24/25 14:02 STATUS: DESIRAE REJustin #: [id number] MIGUEL: 01/24/25 13:[address]: Chidi Betancourt DEPT: [facility] Surgical RECD BY: Isaias Pabon ENTERED: 01/24/25 14:03 SP TYPE: Surgical OTHR DR: Sandie ArriolaMD Tissues: A - Uterus Procedures: Hematoxylin and Eosin Stain Gross and Microscopic Level 5
--- NOTE | 2025-01-24 13:50 | W.PM.PROC2 ---
Procedure Note - Detailed Date of Procedure 01/24/25 Pre-op Diagnosis pelvic pain Post-op Diagnosis Same Procedure Performed Robot assisted Total hysterectomy with bilateral salpingectomy. Surgeon Chidi Betancourt MD Anesthesia General Indications heavy vaginal bleeding, pelvic pain Findings normal-appearing uterus, ovaries. Absent fallopian tubes., dilated veins and arteries along the lateral aspect of the uterus. Description of Procedure This patient was taken to the operating room. She was prepped and draped in the dorsal lithotomy position after induction of general anesthesia. The uterine manipulator and Boni cup were placed. This was done with a speculum and tenaculum. The speculum was placed. The cervix was grasped with a tenaculum. The stay sutures were placed at 3 and 9:00 a.m.. The stay sutures of 0 Vicryl were tied to the appropriately Size scope after it was slipped around the cervix.. The tip of the MIRIAM manipulator was placed in the intrauterine cavity. The cup was slid into place around the cervix and into the fornices. It was locked into place. The sutures were then wrapped around the handle and tied under tension. A 8 mm skin incision was made in the left upper quadrant the abdomen. a 5 mm Visiport trocar was inserted into abdominal cavity and pneumoperitoneum was achieved. A 8 mm supraumbilical incision was made and a 8 mm trocar was inserted into the intrauterine cavity under direct visualization of the scope. an 8 mm incision was made in the right upper quadrant of the abdomen and an 8 mm robotic trocar was placed the inter uterine cavity under direct visualization the scope. An 11 mm trocar was inserted in the right upper quadrant of the abdomen rectal is a cystoscope after an incision was made there as well. The robot was docked. Electronic Orientation of the robot was performed. Bilateral ureteral lysis was performed. This was done from the pelvic brim down to the uterine artery. This was done with careful dissection using sharp and blunt dissection. In a stepwise fashion along the lateral aspects of the uterus the round ligament and broad ligaments were cauterized transected down to the level of the uterine arteries. A bladder flap was created in the bladder was moved distally to the end of the cervix and over the Boni cup. The bilateral uterine arteries were cauterized and transected. Colpotomy was then performed. In a circumferential fashion the vagina was transected using unipolar cautery. The incision was made down on the Boni cup. The uterus and cervix were taken out through the vagina. A pneumo occluder was placed in the vagina. The vaginal cuff was closed with a 0 V lock suture in a running fashion. The pelvis was irrigated with copious amounts antibiotic irrigation. The ureters were again examined and found to be intact and flowing freely under the uterine arteries into the bladder. The bladder was intact. It was examined directly. Cystoscopy was performed after administration of methylene blue. The cystoscope was inserted. Bladder was distended with fluid. The ureteric meatus was observed bilaterally. Blue fluid was seen to egress bilaterally. The bladder was drained and the cystoscope was withdrawn. The vagina was irrigated with Betadine solution after removal of the Pneumo occluder. the trocars were removed after the robot was undocked. The skin was closed with subacute or Dermabond. The patient was taken to recovery room. She was stable condition. Sponge lap and needle counts were correct x2. Estimated Blood Loss 125 Urine Output 800 Drains Yes Packing No Pathology Yes Complications No immediate complications Condition Stable Disposition Floor
--- NOTE | 2025-01-24 15:20 | PC.NURSE ---
This patient, Tori Jamison, was received from PACU on 01/24/25 at 1520. Patient/family oriented to unit policies and routines
[2025-01-24] MEDS: oxyCODONE HCL (*CRX) 5 MG TAB IR PO ×2 (15:40→21:18)
[2025-01-24] MEDS: ONDANSETRON INJ 4 MG/2 ML VIAL IV PUSH (17:29)
[2025-01-24] MEDS: KETOROLAC 30 MG/ML VIAL (*BKC) IV PUSH (17:30)
[2025-01-24] MEDS: SIMETHICONE 80 MG TAB.CHEW PO (17:31)
[2025-01-24] MEDS: DOCUSATE SODIUM 100 MG CAPSULE PO (17:31)
[2025-01-24] MEDS: AMITRIPTYLINE HCL 25 MG TABLET PO (21:19)
[2025-01-25] MEDS: ACETAMINOPHEN 500 MG TABLET 1000 MG PO ×2 (00:18→07:21)
[2025-01-25] MEDS: KETOROLAC 30 MG/ML VIAL (*BKC) IV PUSH ×2 (00:18→07:21)
[2025-01-25 00:26] VITALS: BP 135/65; PULSE 66; RESP 20; TEMP 36.7; O2SAT 97
[2025-01-25] MEDS: oxyCODONE HCL (*CRX) 5 MG TAB IR PO (04:04)
[2025-01-25 04:05] VITALS: BP 122/54; PULSE 72; RESP 20; TEMP 36.8; O2SAT 97
[2025-01-25] MEDS: CHOLECALCIFEROL (VITAMIN D3) 25 MCG (1,000 UNITS) TABLET 50 MCG PO (07:22)
[2025-01-25] MEDS: SIMETHICONE 80 MG TAB.CHEW PO (07:22)
[2025-01-25] MEDS: DOCUSATE SODIUM 100 MG CAPSULE PO (07:22)
[2025-01-25 08:15] VITALS: BP 104/51; PULSE 72; RESP 16; TEMP 36.8; O2SAT 95
--- NOTE | 2025-01-25 08:31 | PM.GYNPNOP ---
GLASS FORMING ENGINEER - A/P Postoperative Procedures: Procedures Operation Date: 01/24/25 12:00 Actual Procedure Side Surgeon p Robotic Assisted Hysterectomy, Cystoscopy Not Applicable Chidi Betancourt MD Time Spent With Patient Time: Total time spent is greater than 50% in coordination of care (as documented) at patient's floor/unit and/or counseling patient: Time with patient: less than 15 minutes GLASS FORMING ENGINEER- PN:Subj Post-Op Subjective Date/time seen: 01/25/25 08:31 Exam Const: General: cooperative, healthy appearing, comfortable and no acute distress Resp: Auscultation: no crackles, no rales, no rhonchi and no wheezes Cardio: Rhythm: regular rhythm Heart sounds: no click and no murmurs GI: Inspection: non-distended Auscultation: normal bowel sounds Extrem: General: normal to inspection, no pedal edema and no calf tenderness GLASS FORMING ENGINEER - PN: Obj Data Vital Signs Vital Signs: Vital Signs - 24 hr 01/24/25 11:45 01/24/25 14:01 01/24/25 14:15 Temperature 97.3 F L 97.2 F L Pulse Rate 80 90 92 Respiratory Rate 20 20 Blood Pressure 131/68 147/85 H 130/77 Pulse Oximetry 97 100 100 Oxygen Delivery Room Air Simple Face Mask Simple Face Mask Oxygen Flow Rate 10 10 01/24/25 14:30 01/24/25 14:45 01/24/25 15:00 Temperature Pulse Rate 79 82 83 Respiratory Rate 16 20 20 Blood Pressure 137/74 135/77 136/76 Pulse Oximetry 100 96 96 Oxygen Delivery Room Air Room Air Room Air Oxygen Flow Rate 01/24/25 15:08 01/24/25 15:25 01/24/25 15:35 Temperature 98 F Pulse Rate 87 79 Respiratory Rate 20 16 Blood Pressure 140/80 129/68 Pulse Oximetry 96 97 Oxygen Delivery Room Air Room Air Oxygen Flow Rate 01/24/25 19:16 01/24/25 19:16 01/25/25 00:26 Temperature 98.9 F Pulse Rate 76 Respiratory Rate 18 Blood Pressure 133/68 Pulse Oximetry 95 Oxygen Delivery Room Air Room Air Oxygen Flow Rate 01/25/25 00:26 01/25/25 04:05 01/25/25 04:05 Temperature 98.1 F 98.2 F Pulse Rate 66 72 Respiratory Rate 20 20 Blood Pressure 135/65 122/54 L Pulse Oximetry 97 97 Oxygen Delivery Room Air Oxygen Flow Rate 01/25/25 07:30 Temperature Pulse Rate Respiratory Rate Blood Pressure Pulse Oximetry Oxygen Delivery Room Air Oxygen Flow Rate Intake/Output Intake/Output: Intake & Output 01/22/25 01/23/25 01/24/25 01/25/25 23:59 23:59 23:59 23:59 Intake Total 1250 Output Total 1050 875 Balance 200 -875 Meds/Results Medications: Active Medications Generic Name Dose Route Start Last Admin Trade Name Freq PRN Reason Stop Dose Admin Acetaminophen 1,000 mg 01/24/25 18:00 01/25/25 07:21 Acetaminophen 500 Mg Tablet PO 1,000 mg Q6HR BRENDON Administration Albuterol 2 puff 01/24/25 15:13 Albuterol Sulfate (*Sp) Aerosol 1 Puff INHALATION Q6H PRN shortness of breath or wheezing Amitriptyline HCl 25 mg 01/24/25 21:00 01/24/25 21:19 Amitriptyline Hcl 25 Mg Tablet PO 25 mg HS BRENDON Administration Docusate Sodium 100 mg 01/24/25 17:00 01/25/25 07:22 Docusate Sodium 100 Mg Capsule PO 100 mg BID BRENDON Administration Ibuprofen 600 mg 01/25/25 12:00 Ibuprofen 600 Mg Tablet PO Q6HR [facility] Naloxone HCl 0.1 mg 01/24/25 15:13 Naloxone Hcl 0.4 Mg/Ml Vial IV PUSH Q2M PRN Respiratory rate less than 10 Ondansetron HCl 4 mg 01/24/25 15:13 01/24/25 17:29 Ondansetron Inj 4 Mg/2 Ml Vial IV PUSH 4 mg Q6H PRN Administration Nausea And Vomiting Oxycodone HCl 5 mg 01/24/25 15:13 01/25/25 04:04 Oxycodone Hcl (*Crx) 5 Mg Tab Ir PO 5 mg Q4H PRN Administration Pain Rated 4-6 Oxycodone HCl 10 mg 01/24/25 15:13 Oxycodone Hcl (*Crx) 5 Mg Tab Ir PO Q6H PRN Pain Rated 7-10 Simethicone 80 mg 01/24/25 17:00 01/25/25 07:22 Simethicone 80 Mg Tab.Chew PO 80 mg TIDWM BRENDON Administration Vitamin D 50 mcg 01/25/25 09:00 01/25/25 07:22 Cholecalciferol (Vitamin D3) 25 Mcg (1,000 Units) Tablet PO 50 mcg DAILY BRENDON Administration
== END 2025-01-25 10:42 | disposition home or self-care (01) ==
LOC: ANHSURGERY 10:10 → ANHOB2 15:26
PROVIDERS: PCP Student in an Organized Health Care Education/Training Program; Visit Provider Obstetrics & Gynecology
PROC: (CPT 58571; principal; 2025-01-24 12:00)
DX: N80.03 Adenomyosis of the uterus (principal); R10.2 Pelvic and perineal pain; F17.210 Nicotine dependence, cigarettes, uncomplicated; F17.290 Nicotine dependence, other tobacco product, uncomplicated; F12.90 Cannabis use, unspecified, uncomplicated
CPT/HCPCS: 58571; S2900; 88307; 99199; A9270; J0690; J1100; J1885; J2003; J2250; J2405; J2704; J3010; J7030; J7120; Q9968

== ENCOUNTER 2025-02-07 18:33 | Emergency (ER) | payer OTHER, SELFPAY ==
[2025-02-07] VITALS (13 sets, daily range): BP systolic 109–131; BP diastolic 61–77; PULSE 72–92; RESP 12–25; TEMP 36.6–36.7; O2SAT 95–100
--- NOTE | ~2025-02-07 | CT_ITS ---
CT abdomen pelvis w con Ordering provider: Orquidea Pike MD History: 49 years Female with . abd pain lower pelvic recent hysterectomy . Comparison: None. Technique: CT abdomen and pelvis with IV and without oral contrast. Automated exposure control and it erative reconstruction technique were employed. The dose-length product was 253.18 mGy-cm. 100 mL Omn ipaque 350 was given IV. Findings: VISUALIZED LOWER CHEST: Dependent atelectatic changes. UPPER ABDOMINAL ORGANS: Liver: Normal. Gallbladder: Status post cholecystectomy. Spleen: Normal. Stomach/duodenum: Normal. Pancreas: Normal. Adrenals: Normal. Kidneys: Normal. PELVIC ORGANS: The bladder is normal. Status post hysterectomy. Right ovarian follicle measuring 1.8 cm. BOWEL AND MESENTERY: Colon: No evidence of diverticulitis.. Normal appendix. Small Bowel: Normal. No obstruction. Peritoneum/mesentery: No free air or free fluid. No mesenteric lymphadenopathy. RETROPERITONEUM: Normal aorta. Mild narrowing at the origin of the celiac artery. No retroperitonea l lymphadenopathy. MUSCULOSKELETAL: Superficial soft tissues: The superficial soft tissues are normal. Bones: Age appropriate degenerative changes of the spine. Bilateral sacroiliacs. IMPRESSION: 1. No evidence of appendicitis, diverticulitis or intestinal obstruction. 2. Status post hysterectomy. Right small ovarian follicle. 3. 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 Reviewed, dictated and finalized at location A.
--- OUTSIDE RECORDS SUMMARY | 2025-02-07 18:36 | XMS_ITS | Patient Health Record ---
Author Organization [facility] Address [address] [place], [place] [id number] Care Team Providers Care Media Sales Representative Name Role Phone DESTINI Ritter Unavailable [phone] Reason For Referral No Information Medications Medication SIG (Take, Route, Frequency, Duration) Notes Start Date End Date Status amitriptyline hydrochloride 50 MG Oral Tablet ORAL amitriptyline hydrochloride 50 MG Oral TabletOriginal Medicationamitriptyline hydrochloride 50 MG Oral Tablet *Reorder from [employer] for eRx and Interaction Alerts* 5 Active esomeprazole 20 MG Delayed Release Oral Capsule [Nexium] ORAL esomeprazole 20 MG Delayed Release Oral Capsule [Nexium]Original Medicationesomeprazole 20 MG Delayed Release Oral Capsule [Nexium] *Reorder from [employer]oc for eRx and Interaction Alerts* 5 Active buspirone hydrochloride 10 MG Oral Tablet [Buspar] ORAL buspirone hydrochloride 10 MG Oral Tablet [Buspar]Original Medicationbuspirone hydrochloride 10 MG Oral Tablet [Buspar] *Reorder from [employer] for eRx and Interaction Alerts* 5 Active Plan Of Treatment No Information Insurance Providers Payer Name Payer Address Payer Phone Subscriber Number Group Number Insured Name Patient Relationship to Insured Coverage Start Date Coverage End Date Reinier Murri[employer] (Regions 1-6) [address] [place], [place] [id number] MILLIE KIM Self - patient is the insured
--- OUTSIDE RECORDS SUMMARY | 2025-02-07 18:36 | XMS_ITS | Encounter Summary ---
Author Organization [facility] Address Replaced by [facility] [place] [address] Care Team Providers Care Horseshoer Name Role Phone Kesha Quinones MD Unavailable [phone] Noel Cerna MD Primary Care Provider [phone] Sandie Arriola MD Primary Care Provider + Encounter Details Date Type Department Care Team (Late Contact Info) Description 12/12/2021 [facility] [place] [facility] [address] [address] Verna Loera MA Social History Tobacco Use [...] Sex Assigned at Female 08/15/2024 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 Sex Female 8:26 PM CDT Gender Identity Not on file Sexual Orientation Not on file documented as of this encounter Plan of Treatment Upcoming Encounters Date Type Department Care Team (Late st Contact Info) Description 03/08/2025 9:00 AM CDT Allied Health/Nurse Visit [facility] Family Medicine - [place] [address] [place] [address] Sandie Arriola MD [address] [place] [address] 03/15/2025 9:50 AM CDT Office Visit [facility] Family Medicine - [place] [address] [place] [address] Sandie Arriola MD [address] [place], [place] [id number] documented as of this encounter Procedures Procedure [...] on filedocumented in this encounter Care Teams Horseshoer Relationship Specialty Start Date End Date Noel Cerna MD [address] [place] [address] PCP - General FAMILY PRACTICE 06/04/20 03/05/24 Sandie Arriola MD [address] [place] [address] PCP - General FAMILY PRACTICE 03/06/24 Kesha Quinones MD [address] [place] [address] Referring Physician OBJAMESN 10/08/17 documented as of this encounter
--- OUTSIDE RECORDS SUMMARY | 2025-02-07 18:37 | XMS_ITS | Patient Health Record ---
Author Organization [facility] [employer] Address [address] [facility] [address] [place] [address] Care Team Providers Care Seeing Eye Dog Teacher Name Role Phone Sandra Thakur Unavailable [phone] Allergies Allergen (clinical drug ingredient) Drug/Non Drug [...] Oxazepam (BZO) neg 0 - 300 ng/ml 7-yfjecjrgne-8,4-wjhwhkay-8,3-diphenylpyrrolidine (MADHAV P) neg 0 - 300 ng/ml Methamphetamine (MET) neg 0 - 1000 ng/ml Methylenedioxymethamphetamine (MDMA) neg 0 - 500 ng/ml Morphine (MOP 300/YTA6357) neg 0 - 300 ng/ml Methadone (MTD) [...] 3 Generalized anxiety disorder (F41.1) [facility] Referring Provider First Name Sandra Referring Provider Last Name Blaze Referring Provider Speciality Nurse Dory isaacs Referred Provider [facility] Referred Provider Specialty Psychiatry General Notes Sandra Thakur Delgado 03/01/2024 05:18:35 PM >fax successful per [facility] Referral Priority Routine Medications Medication SIG (Take, Route, Frequency, Duration) Notes Start Date End Date Status busPIRone HCl 5 MG 1 tablet Oral Twice a day; Duration: 90 days Active FLUoxetine HCl 20 MG 1 capsule Oral Once a day; Duration: 90 days Active SUMAtriptan Succinate 100 MG TAKE 1 TABL ET BY MOUTH NEEDED FOR HEADACHE. MAY REPEAT IN 2 HOURS. MAX OF 2 PER DAY Oral; Duration: 5 Days Active traZODone HCl 50 MG 1 tablet at bedtime as needed Oral Once a day; Duration: 90 days Active Amitriptyline HCl 25 MG 1 tablet in the evening Oral Once a day; Duration: 90 days Active lamoTRIgine 25 MG 1 tab at bedtime x 2 weeks, then 2 tabs at bedtime Oral once a day 03/01/2024 Active Albuterol Sulfate HFA 108 (90 Base) MCG/ACT INHALE 2 PUFFS BY MOUTH EVERY 4 TO 6 HOURS NEEDED Inhalation; Duration: 16 Days Active Ibuprofen 800 MG Oral; Duration: 6 Days Active Social History Tobacco Use: [...] less (1 point) Section Notes: Lives in [place], her little br other and his and son moved in, and my boyfriend and one of my daughters. The other daughter is adrian's girl. from of 16 yrs, she moved out in September. 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 Problems Problem Type SNOMED Code ICD Code Onset Dates Problem Status W/U Status Risk Notes Problem Generalized anxiety disorder (09536548) Generalized anxiety disorder (F41.1) Active confirmed Problem Adjustment disorder with mixed anxiety and depressed mood (327573801) Adjustment disorder with mixed anxiety and depressed mood (F43.23) Active confirmed Problem Insomnia disorder related to another mental disorder (51135458) Insomnia related to another mental disorder (F51.05) Active confirmed Problem Panic disorder (269816088) Panic attacks (F41.0) Active confirmed Problem Moderate recurrent major depression (06569683) Moderate recurrent major depression (F33.1) Active confirmed Vital Signs Heart Rate 81 /min 03/01/2024 Height-cm 157.48 cm 03/01/2024 Blood pressure diastolic 71 mm Hg 03/01/2024 Weight-kg 63.05 kg 03/01/2024 Height 62 in 03/01/2024 Blood pressure systolic 108 mm Hg 03/01/2024 Weight 139 lbs 03/01/2024 BMI 25.42 kg/m2 03/01/2024 Encounters Encounter Location Date Provider Diagnosis [place] [address] [facility] [address] [address] 03/01/2024 Sandra [place]os[place]nek Adjustment disorder with mixed anxiety and depressed mood F43.23 ; Moderate recurrent major depression F33.1 ; Generalized anxiety disorder F41.1 ; Insomnia related to another mental disorder F51.05 ; Panic attacks F41.0 and Marijuana user F12.90 [place] [address] [facility] [address] [facility] [address] [place] [address] 03/23/2024 Sandra [place] Adjustment disorder with mixed anxiety and depressed mood F43.23 ; Moderate recurrent major depression F33.1 ; Generalized anxiety disorder F41.1 ; Insomnia related to another mental disorder F51.05 ; Panic attacks F41.0 and Marijuana user F12.90 [place] [address] [address] [place] [address] 03/01/2024 Sandra Blaze [facility], [facility] [address] [facility] [address] [place] [address] 03/09/2024 Sandra Flanaganakuakamalaglenda [facility], [facility] [address] [place] [address] 03/23/2024 Sandar Blaze [facility], [facility] [address] [facility] [address] [place] [address] 04/05/2024 Sandra Flanaganting [facility], [facility] [address] [facility] [address] [place] [address] 04/06/2024 Sandra Flanaganting Assessments Encounter Date Diagnosis (ICD Code) Assessment [...] Coverage Start Date Coverage End Date [facility] [address] [place] [address] [id number] Tori Jamison Self - patient is the insured Medical [...]
--- OUTSIDE RECORDS SUMMARY | 2025-02-07 18:37 | XMS_ITS | Clinical Summary ---
Author Organization [facility] Address [facility] [place] [address] Care Team Providers Care Assayer Name Role Phone Kesha Quinones MD Unavailable [phone] Sandie Arriola MD Primary Care Provider + [...] (03/06/2024): Psychiatry is managing her trazodone. Asthma ([facility]) Dskpwyl-Btfso-Zgpmy disease Overview (03/06/2024): Saw neurology and tried taking gabapentin but did not tolerate. Managing with symptoms without any intervention at this time. Resolved Problems Problem Noted Date Diagnosed Date Resolved Date Condition influencing health status 02/29/2024 03/06/2024 Encounters Date Type Department Care Team Description 01/24/2025 Scan [facility] Scanned, [facility] Procedure (SCAN) 01/04/2025 Scan [facility] Scanned[facility] 12/07/2024 Scan [facility] Scanned, [facility] Procedure (SCAN) 11/20/2024 Telephone [facility] Family Medicine [facility] [address] [address] Sandie Arriola MD Referral Request from Last [...] Date Smoking Tobacco: Every Day Cigarettes 1 26.3 Started: 1991; L ast attempted to quit: [...] Sex Assigned at Female 08/15/2024 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 Legal Sex Female 8:26 PM CDT Gender Identity Not on file Sexual Orientation Not on file Last Filed Vital Signs Vital Sign Reading Time Taken Comments Blood Pressure 126/75 08/14/2024 1:12 PM CIVIL STRUCTURAL ENGINEER Pulse 78 08/14/2024 1:12 PM CIVIL STRUCTURAL ENGINEER Temperature 36.4 C (97.6 F) 08/14/2024 1:12 PM CIVIL STRUCTURAL ENGINEER Respiratory Rate 17 04/24/2024 10:30 AM CDT Oxygen Saturation 97% 08/14/2024 1:12 PM CIVIL STRUCTURAL ENGINEER Inhaled Oxygen Concentration - - Weight 65.8 kg (145 lb) 08/14/2024 1:12 PM CIVIL STRUCTURAL ENGINEER Height 156.2 cm (5' 1.5) 08/14/2024 1:12 PM CIVIL STRUCTURAL ENGINEER Body Mass Index 26.95 08/14/2024 1:12 PM CIVIL STRUCTURAL ENGINEER Plan of Treatment Upcoming Encounters Date Type Department Care Team (Late st Contact Info) Description 03/08/2025 9:00 AM CDT Allied Health/Nurse Visit [facility] Family Medicine [facility] [address] [phone] Sandie Arriola MD [address] [facility] [address] [place] [address] 03/15/2025 9:50 AM CDT Office Visit [facility] - [place] [address] [facility] [address] [place] [address] Sandie Arriola MD [address] [place] [address] Health Maintenance Due Date Last Done Comments [...] or Tdap) 11/30/2033 12/01/2023, 11/20/2013 PHQ-2 (Physician [place]) Completed 08/03/2024 Meningococcal B Vaccine Aged Out No l onger eligible based on patient's age to complete this topic Meningococcal Vaccine Aged Out No willow edvin eligible based on patient's age to complete this topic RSV Immunizations Under 20 Months Aged Out No longer eligible b ased on patient's age to complete this topic Procedures Procedure Name Priority Date/Time Associated Diagnosis Comments PROCEDURE GENERIC (SCAN ORDER) 01/24/2025 PROCEDURE GENERIC (SCAN ORDER) 12/07/2024 COLONOSCOPY GENERIC (SCAN ORDER) 11/22/2020 from Last 3 Months or Most Recently Relevant to Health Maintenance Results * PROCEDURE GENERIC (SCAN ORDER) (01/24/2025) 01/24/2025 [facility] Scanned SCANNING Final Resu lt * PROCEDURE GENERIC (SCAN ORDER) (12/07/2024) 12/07/2024 us [facility] Scanned SCANNING Final Resu lt * COLONOSCOPY GENERIC (SCAN ORDER) (11/22/2020) 11/22/2020 us [facility] Scanned SCANNING Final Resu lt from Last 3 Months or Most Recently Relevant to Health Maintenance [place] [id number] Care Teams Assayer Relationship Specialty Start Date End Date Sandie Arriola MD [address] [place] [id number] PCP - General FAMILY PRACTICE 03/06/24 Kesha Quinones MD [address] [place] [address] Referring Physician [email or web address] 10/08/17
--- OUTSIDE RECORDS SUMMARY | 2025-02-07 18:38 | XMS_ITS | Continuity of Care Document ---
Author Name [facility] Organization [facility] Care Team Providers [employer] Sales Counterperson Name Role Phone [facility] Unavailable Unavailable Problems [...] pain in the right hip Inactive Condition [facility] visit for: exam 2nd trimester (at ____weeks) Inactive Condition DoD diarrhea Inactive Condition DoD SECONDARY INSOMNIA Inactive Condition Do D Inquiry And Counseling: Contraceptive Practices Active Condition [facility] ELDERLY MULTIGRAVIDA (35 or older at delivery) Inactive Condition DoD UPPER RESPIRATORY INFECTION Inactive Condition DoD BACKACHE Active Condition DoD COMMON COLD Inactive Condition DoD CONSTIPATION Inactive Condition [facility] visit for: exam high-risk elderly multigravida Inactive Condition DoD constipation Inactive Condition DoD nausea Inactive Condition DoD Urine Test Inactive Condition DoD RHINOSINUSITIS Inactive Condition [facility] Outpatient Physician Consultation Inactive Condition DoD CONDITIONS INFLUENCING HEALTH STATUS Active Condition DoD CERVICALGIA Active Condition [facility] visit for: screening exam for malignant neoplasm cervix Inactive Condition DoD CYSTITIS ACUTE Inactive Condition DoD FEMALE PELVIC PAIN Active Condition DoD ENDOMETRIOSIS Active Condition DoD nonmenstrual bleeding Active Condition DoD Test Inactive Condition DoD ACUTE BRONCHITIS Inactive Condition [facility] visit for: issue repeat prescription for [...] NORMAL CHECKUP - THIRD TRIMESTER Inactive Condition [facility] visit for: exam high-risk Inactive Condition DoD lower back pain Inactive Condition DoD ANXIETY DISORDER NOS Inactive Condition DoD Vaccines Prophylactic Need Against Influenza Inactive Condition DoD current smoker Active Condition DoD Oral Glucose Tolerance Test 2-Hour Value Between 140 - 200 Inactive Condition [facility] NORMAL CHECKUP - SECOND TRIMESTER Inactive Condition DoD NORMAL Inactive Condition DoD PSYCHIATRIC DIAGNOSIS OR CONDITION DEFERRED ON AXIS I Inactive Condition DoD DEPRESSION Inactive Condition DoD Inactive Condition DoD HYPEREMESIS GRAVIDARUM Inactive Condition DoD Patient Counseling: Inactive Condition D Supervision Of Normal Inactive Condition [facility] visit for: exam 1st trimester (at ____weeks) Inactive Condition DoD nausea with vomiting Inactive Condition [facility] IRRITABLE BOWEL SYNDROME Active Condition [facility] visit for: administrative purpose Inactive Condition [facility] smoking cigarettes Active Condition [facility] DYSMENORRHEA Active Condition DoD DYSFUNCTIONAL UTERINE BLEEDING Active Condition DoD feared medical condition not demonstrated Inactive Condition [facility] visit for: screening exam malignant neoplasm breast Inactive Condition DoD ROUTINE GYNECOLOGICAL EXAM WITH CERVICAL PAP SMEAR Inactive Condition DoD VAGINAL DISCHARGE Inactive Condition DoD DYSPAREUNIA Active Condition DoD pain during urination (dysuria) Active Condition DoD DERMATOPHYTOSIS TINEA PEDIS Inactive Condition DoD DERMATOPHYTOSIS TINEA MANUUM Active Condition [facility] visit for: issue repeat prescription Inactive Condition [facility] Patient Education - Medication Inactive Condition DoD Need For Vaccination Hepatitis B Inactive Condition DoD anxiety Inactive Condition Pt with anxiety disorder that has failed every SSRI and Wellbutrin and per patient. Pt does not tolerate klonopin. Will give trial of low dose Xanax. Follow up as needed. [facility] NORMAL PRE-EMPLOYMENT SCREENING EXAMINATION Inactive Condition [...] LUPIN PHARMACEU, 8.5 g CANISTER Cancele d [id number] : 2023 0 Pharmac y Data Transac tion Service Facilit y DICYCLOMINE HCL (DICYCLOMIN E HCL), 10MG, CAPSULE, ORAL, TORREZ LABS, 100 ea. BOTTLE Cancele d [id number] : 2023 0 Pharmac y Data Transac tion Service Facilit y DICYCLOMINE HCL (DICYCLOMIN E HCL), 10MG, CAPSULE, ORAL, TORREZ LABS, 100 ea. BOTTLE Active [id number] 2023 240 Pharmac y Data Transac tion Service Facilit y FLUOXETINE HCL (FLUOXETINE HCL), 20MG, CAPSULE, ORAL, PLIVA, INC, 1000 ea. BOTTLE Active [id number] 4 2023 90 Pharmac y Data Transac tion Service Facilit y PANTOPRAZOL E SODIUM (PANTOPRAZO LE SODIUM), 20 MG, TABLET DR, ORAL, MYLAN, 90 ea. BOTTLE Cancele d [id number] : 2023 0 Pharmac y Data Transac tion Service Facilit y PANTOPRAZOL E SODIUM (PANTOPRAZO LE SODIUM), 20 MG, TABLET DR, ORAL, MYLAN, 90 ea. BOTTLE Active [id number] 2023 30 Pharmac y Data Transac tion Service Facilit y phentermine 15 mg capsule See Instruct ions, # 30 EA, 0 total refill(s ), Hard Stop Complet ed 09/21/2023 3 2023 30.0 Ambulat ory Pharmac y SUMATRIPTAN SUCCINATE (sumatripta n succinate), 100 MG, TABLET, ORAL, 'S LAB, 27 ea. BLIST PACK Active [id number] 2023 9 Pharmac y Data Transac tion Service Facilit y topiramate [Exelan] 50 mg tablet See Instruct ions, # 90 EA, 0 total refill(s ), Hard Stop Complet ed 03/24/2024 3 2023 90.0 Ambulat ory Pharmac y TRAZODONE HCL (trazodone HCl), 50 MG, TABLET, ORAL, AUROBINDO PHARM, 100 ea. BOTTLE Cancele d [id number] : 2023 0 Pharmac y Data Transac tion Service Facilit y TRAZODONE HCL (trazodone HCl), 50 MG, TABLET, ORAL, AUROBINDO PHARM, 100 ea. BOTTLE Cancele d [id number] : 2023 0 Pharmac y Data Transac [...] } Drug allergy (disorder) Rash active [address] [place] [address]) OTHER {Cla } Propensity to adverse reactions to drug Rash Active 3 LATEX Unknown Organiza tion PHENERGAN (PROMETHAZIN E HCL) Drug allergy (disorder) Unknown active [address] [place] [address]) promethazine Propensity to adverse reactions to drug Unknown Active 4 Unknown Organiza tion PROZAC (FLUOXETINE HCL) Drug allergy (disorder) Diarrhea active [address] [place] [address]) REGLAN (METOCLOPRAM JENNY HCL) Drug allergy (disorder) Depression active [address] [place] [address]) sertraline Propensity to adverse reactions to drug Depression Active 4 Unknown Organiza tion ZOLOFT (SERTRALINE HCL) Drug allergy (disorder) Depression active [address] [place] [address]) Immunizations Combined list of available immunizations from the Department of Defense and Veterans Affairs facilities. Immunization Series Date Given Administered By Site Reaction Lot Number CVX Code Drug Head Scorer Status Comments Source COVID-19, mRNA, LNP-S, PF, 100 mcg or 50 mcg dose 2021 [employer] (MOD) Not Given COVID-19, mRNA, LNP-S, PF, 100 mcg or 50 mcg dose DoD influenza, injectable, quadrivalent- pf 2017 zzLef t Arm [id number] Se[employer] complet ed influenza , injectabl e, quadrival ent-pf 05/11/18 Given Ambulat ory Pharmac y Influenza, injectable, quadrivalent, preservative free 1 2017 Unknown, Provider [id number] 150 [employer] (SEQ) complet ed Influenza , injectabl e, quadrival ent, preservat rachel free DoD influenza, seasonal, injectable-pf 2015 zzLef t Arm [id number] 140 [employer] complet ed influenza , seasonal, injectabl e-pf 07/15/16 Given Ambulat ory Pharmac y Influenza, seasonal, injectable, preservative free 1 2015 Unknown, Provider [id number] 140 [employer] (SEQ) complet ed Influenza , seasonal, injectabl e, preservat rachel free DoD influenza, injectable, quadrivalent 2013 zzL t Arm [id number] 158 [employer] complet ed influenza , injectabl e, quadrival ent 06/07/14 Given Ambulat ory Pharmac y influenza, injectable, quadrivalent, contains preservative 1 2013 Unknown, Provider [id number] (IDB) complet ed influenza , injectabl e, quadrival ent, contains preservat rachel DoD tetanus, diphtheria, acellular pertu is [id number] 115 [employer]Smith[employer] ne complet ed tetanus, diphtheri a, acellular pertussis 11/20/13 Given Ambulat ory Pharmac y tetanus toxoid, reduced diphtheria toxoid, and acellular pertu is vaccine, adsorbed 1 2013 Unknown, Provider [id number] 115 [employer] (SKB) complet ed tetanus toxoid, reduced diphtheri a toxoid, and acellular pertussis vaccine, adsorbed DoD influenza, seasonal, injectable-pf 2013 zzLef t Arm [id number] 140 sanofi pasteur complet ed influenza , seasonal, injectabl e-pf 08/28/13 Given Ambulat ory Pharmac y Influenza, seasonal, injectable, preservative free 5 2013 Unknown, Provider [id number] 140 Sanofi Pasteur ([facility]) complet ed Influenza , seasonal, injectabl e, preservat rachel free DoD influenza, seasonal, injectable-pf 2011 [facility] Arm [id number] 140 sanofi pasteur complet ed influenza , seasonal, injectabl e-pf 06/10/12 Given Ambulat ory Pharmac y Influenza, seasonal, injectable, preservative free 4 2011 Unknown, Provider [id number] 140 Sanofi Pasteur ([facility]) complet ed Influenza , seasonal, injectabl e, preservat rachel free DoD influenza, seasonal, injectable-pf 2010 [facility] [id number] 140 sanofi pasteur complet ed influenza , seasonal, injectabl e-pf 06/15/11 Given Ambulat ory Pharmac y Influenza, seasonal, injectable, preservative free 3 2010 Unknown, Provider [id number] 140 Sanofi Pasteur ([facility]) complet ed Influenza , seasonal, injectabl e, preservat rachel free DoD influenza virus vaccine,split 2009 [facility] Arm [id number] 15 sanofi pasteur complet ed influenza virus vaccine,s plit 06/30/10 Given Ambulat ory Pharmac y influenza virus vaccine, split virus (incl. purified surface antigen)-reti red CODE 1 2009 Unknown, Provider [id number] 15 Sanofi Pasteur ([facility]) complet ed influenza virus vaccine, split virus (incl. purified surface antigen)- retired CODE [facility] Novel Influenza-H1N 1-09,live virus,nasal 2009 [id number] 125 [employer] comple t ed Novel Influenza -W4T1-36, live virus,rafal al 08/29/09 Given Ambulat ory Pharmac y Novel Influenza-H1N 1-09, live virus for nasal administratio n 1 2009 Unknown, Provider [id number] 125 [employer] (MED) complet ed Novel Influenza -[id number], live virus for nasal administr ation DoD influenza virus vaccine,split 2008 [facility] Arm [id number] 15 sanofi pasteur complet ed influenza virus vaccine,s plit 05/16/09 Given Ambulat ory Pharmac y influenza virus vaccine, split virus (incl. 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 Tm Blue) TELE CONSULT [id number] Medicat ion Request HARDY GLOVER 05/[address] [place] [address] [place] [employer] [place])(S cott [facility] [employer] Tm Blue) [address] [place] [address] [place] [employer] [place])(Sco tt [facility] [employer] Tm Blue) OUTPATIENT [id number] rash on hand... .[phone] 64 ADELINE GU 07/05 Released w/o Limitations [address] [place] [address] [place] [employer] [place])(S [facility] FAM[employer] Tm Blue) [address] [place] [address] [place] [employer] [place])(Sco tt [facility] [employer] Tm Blue) TELE CONSULT [id number] Medicat ion Request ALDO DAY 08/[address] [place] [address] Group [place] [employer] ([facility]S cott [facility] [employer] Tm Blue) [address] [place] [address] [place] [employer] [facility])(Sco tt [facility] FAM[employer] Tm Blue) OUTPATIENT [id number] annual pap.... [id number] WANDA FELICIANO 09/18 Released w/o Limitations [facility] [place] [employer] ([facility]S cott [facility] [employer] Tm Blue) [address] [place] [address] [place] [employer] [place])(Special Skills Officer ecology) OUTPATIENT [id number] feared medical conditi on not demonst rated MARGARETTE TABARES 10/03 Released w/o Limitations [address] [place] [address] [place] [employer] ([facility])(G ynecolo gy) [address] [place] [address] [place] [employer] [place])(Ob/ Special Skills Officer) TELE CONSULT [id number] us and lab results MARGARETTE TABARES 10/[address] [place] [address] [place] [employer] ([facility])(O b/Special Skills Officer) [address] [place] [address] [place] [employer] ([facility])(Special Skills Officer ecology) OUTPATIENT [id number] preg test CHETNA BARKER 11/02 Released w/o Limitations [address] [place] [address] [place] [employer] ([facility])(G ynecolo gy) [address] [place] [address] [place] [employer] ([facility])(Sco tt [facility] [employer] Tm Blue) TELE CONSULT [id number] Medicat ion Request ALDO DAY 11/05[facility] [place] [employer] ([facility]S cott [facility] FAM[employer] Tm Blue) [address] [place] [address] [place] [employer] [place])(Sco tt [facility] Fam Res Tm Green) OUTPATIENT [id number] medicat ion/OB questio AFSHIN Martin 11/09 Released w/o Limitations [address] [place] [address] [place] [employer] ([facility]S cott [facility] Fam Res Tm Green) [address] [place] [address] [place] [employer] ([facility]Sco tt [facility] [employer] Tm Blue) OUTPATIENT [id number] initiat e OB care ANNE HURTADO 11/12 Released w/o Limitations [facility] [place] [employer] ([facility]S cott [facility] FAMRES Tm Blue) [employer] ([facility])(Sco tt [facility] FAMRES Tm Blue) OUTPATIENT [id number] early pregnan cy; hyperem keanu ADELINE GUVEENA 11/19 Released w/o Limitations [employer] ([facility]S cott [facility] [employer] Tm Blue) [employer] ([facility])(Ob/ Special Skills Officer) OUTPATIENT [id number] [facility]fe [facility] EDC [id number] ZACK TOWNSEND 12/17 Released w/o Limitations [facility] [employer] ([facility])(O b/Special Skills Officer) [facility] [employer] ([facility])(Ob/ Special Skills Officer) OUTPATIENT [id number] new ob - edc jul 10 JE LUNA 01/02 Released w/o Limitations [facility] [employer] ([facility])(O b/Special Skills Officer) [facility] [employer] ([facility])(Ob/ Special Skills Officer) TELE CONSULT [id number] referra JE Mathews 01/03 [facility] [employer] ([facility])(O b/Special Skills Officer) [facility] [employer] ([facility])(Special Skills Officer ecology) TELE CONSULT [id number] Needs note from doctor TRUNG HALEY 01/16 [facility] [employer] ([facility])(G ynecolo gy) [facility] [employer] ([facility])(Ob/ Special Skills Officer) OUTPATIENT [id number] 16 wks edc jul 10 JE LUNA 01/23 Released w/o Limitations [facility] [employer] ([facility])(O b/Special Skills Officer) [facility] [employer] ([facility])(Ob/ Special Skills Officer) TELE CONSULT [id number] request ing letter TRUNG HALEY 01/23 [facility] [employer] ([facility])(O b/Special Skills Officer) [facility] [employer] ([facility])(Ob/ Special Skills Officer) TELE CONSULT [id number] ua TRUNG Doherty 02/05 [facility] [employer] ([facility])(O b/Special Skills Officer) [facility] [employer] ([facility])(Ob/ Special Skills Officer) OUTPATIENT [id number] NIC - EDC jul 10 ZACK TOWNSEND 02/20 Released w/o Limitations [employer] ([facility])(O b/Special Skills Officer) [employer] ([facility])(Ob/ Special Skills Officer) TELE CONSULT [id number] JE LUNA 02/28 [employer] ([facility])(O b/Special Skills Officer) [employer] ([facility])(Ob/ Special Skills Officer) TELE CONSULT [id number] OB w/ contrac mary N/V KELSIE INIGUEZ 03/11 [facility] [employer] ([facility])(O b/Special Skills Officer) [facility] [employer] ([facility])(Ob/ Special Skills Officer) OUTPATIENT [id number] nic - edc jul 10 MARGARETTE TABARES 03/25 Released w/o Limitations [employer] ([facility])(O b/Special Skills Officer) [facility] [employer] ([facility])(Ob/ Special Skills Officer) TELE CONSULT [phone] request for med refill CESARIO JEFFERY 04/09 [facility] [employer] ([facility])(O b/Special Skills Officer) [facility] [employer] ([facility])(Ob/ Special Skills Officer) TELE CONSULT [id number] lab result MARGARETTE TBAARES 04/12 [facility] [employer] ([facility])(O b/Special Skills Officer) [facility] [employer] ([facility])(Ob/ Special Skills Officer) OUTPATIENT [id number] nic - edc jul 10 CESARIO JEFFERY 04/16 Released with Work/Duty Limitations [facility] [employer] ([facility])(O b/Special Skills Officer) [facility] [employer] ([facility])(Ob/ Special Skills Officer) TELE CONSULT [id number] test results VERONICA JOHNS 04/30 [facility] [employer] ([facility])(O b/Special Skills Officer) [facility] [employer] ([facility])(Ob/ Special Skills Officer) OUTPATIENT [id number] nic - edc jul 10 - discuss deliver y BRIE Nicole 05/16 Released w/o Limitations [employer] ([facility])(O b/Special Skills Officer) [facility] [employer] ([facility])(Sco tt [facility] Fam Res [employer] Green) OUTPATIENT [id number] flu shot for high risk pt AL TALBOT 05/16 Released w/o Limitations [employer] ([facility]S [place] [facility] Fam Res Tm Green) [facility] Medical [facility] [employer] ([facility])(Ob/ Special Skills Officer) TELE CONSULT [id number] flu symptom s TRUNG HALEY 05/28 [facility] [employer] ([facility])(O b/Special Skills Officer) [facility] Medical [facility] [employer] ([facility])(Ob/ Special Skills Officer) OUTPATIENT [id number] NIC - EDC 8 JUL 10 JE ARIZA 06/03 Released w/o Limitations [employer] ([facility])(O b/Special Skills Officer) [facility] Medical [facility] [employer] ([facility])(Ob/ Special Skills Officer) OUTPATIENT [id number] NIC - EDC 8 JUL 10 BRIE CRUZ 06/11 Released w/o Limitations [employer] [place] [employer] ([facility])(O b/Special Skills Officer) [facility] Medical [facility] [employer] ([facility])(Ob/ Special Skills Officer) OUTPATIENT [id number] nic - edc 8 jul 10 JE ARIZA 06/18 Released w/o Limitations [employer] [place] [employer] ([facility])(O b/Special Skills Officer) [address] [place] [address] [employer] ([facility])(Lion e Managemen t) TELE CONSULT [id number] [facility] ital Admissi on JENSEN URBAN 06/25 [facility] [employer] [place] [employer] ([facility])(C ase Managem ent) [facility] Medical [facility] [employer] ([facility])(Ob/ Special Skills Officer) TELE CONSULT [id number] burning during urinati on DORI DAVENPORT L 07/01 [facility] [employer] ([facility])(O b/Special Skills Officer) [facility] Medical [facility] [employer] ([facility])(Sco tt [facility] FAMRES Tm Blue) OUTPATIENT [id number] lactati on consult from WANDA Shine 07/05 Released w/o Limitations [employer] ([facility]S cott [facility] FAMRES Tm Blue) [facility] Medical [facility] [employer] ([facility])(Ob/ Special Skills Officer) OUTPATIENT [id number] 6 wk pp - deliver ed Jun 10 BRIE CRUZ 08/05 Released w/o Limitations [employer] ([facility])(O b/Special Skills Officer) [facility] [place] [employer] ([facility]Sco tt [facility] FAM[employer] Tm Blue) TELE CONSULT [id number] med ALDO Saenz 08/14 [facility] [place] [employer] ([facility]S cott [facility] FAMRES Tm Blue) [facility] Medical [facility] [place] [employer] ([facility])(Special Skills Officer ecology) OUTPATIENT [id number] james denney on BRIE CRUZ 08/20 Released w/o Limitations [facility] [employer] [place] [employer] ([facility])(G ynecolo gy) [facility] [place] [employer] ([facility]Sco tt [facility] [employer] Tm Blue) OUTPATIENT [id number] dry hands and feet cell# [phone] LEXY BRICENO 08/29 Released w/o Limitations [facility] [place] [employer] ([facility] [facility] [place] [facility] Tm Blue) [facility] [place] KELSEYB ([facility])(Ob/ Special Skills Officer) TELE CONSULT [id number] some concern s with JE GALE 09/13[facility] [place] ([facility]O b/Special Skills Officer) [address] [place] [address] [place] SAPP ([facility])(Sco tt [facility] [place] [facility] Tm Blue) OUTPATIENT [id number] fu left hand [phone] VASU CARPENTER 10/18 Released w/o Limitations [facility] [place] KEL[place] ([facility]S cott [facility] [place] [facility] Tm Blue) [address] [place] [address] [place] K[place] ([facility])(Hubert matology) OUTPATIENT [id number] DYSHIDR MONI DILL 11/08 Released w/o Limitations [facility] [place] ([facility])(Dilma woo) [address] [place] [address] [place] K[place] ([facility]Sco tt [facility] [place] [facility] Tm Blue) TELE CONSULT [id number] refill VASU Petty 12/19[facility] [place] ([facility]S cott [facility] [place] [facility] Tm Blue) [facility] [place] [employer] ([facility])(Ob/ Special Skills Officer) TELE CONSULT [id number] appt VERONICA JOHNS 12/31 375 [facility] [place] SAPP ([facility])(O b/Special Skills Officer) 375 [facility] [place] SAPP ([facility])(Opt ometry) OUTPATIENT [id number] eye exam... [id number] LUZ MUHAMMAD 12/31 Released w/o Limitations [facility] [place] SAPP ([facility])(O ptometr y) [facility] [place] SAPP ([facility])(Special Skills Officer ecology) OUTPATIENT [id number] iud removal BRIE CRUZ 01/14 Released w/o Limitations [facility] [place] SAPP ([facility])(G ynecolo gy) [facility] [place] SAPP ([facility]Sco tt [facility] [place] [facility] Tm Blue) OUTPATIENT [id number] discuss quittin g smoking /ear acupunt ALDO Swenson 01/24 Released w/o Limitations [facility] [place] SAPP ([facility]S cott [facility] [place] [facility] Tm Blue) [address] [place] [address] [place] SAPP ([facility]Sco tt [facility] [place] [facility] Tm Blue) TELE CONSULT [id number] Medical Inquiry ALDO DAY 03/31[facility] [place] SAPP ([facility]S cott [facility] [place] [facility] Tm Blue) [address] [place] [address] [place] S[place] ([facility]Sco tt [facility] [place] [facility] Tm Blue) OUTPATIENT [id number] f/u ibs/gal lbladde ALDO Vega 04/15 Released w/o Limitations [facility] [place] SAPP ([facility]S cott [facility] [place] [facility] Tm Blue) [facility] [place] SAPP ([facility])(Special Skills Officer ecology) OUTPATIENT [id number] bp check and review [facility] - [phone] BRIE CRUZ 04/17 Released w/o Limitations [facility] [place] KEL[place] ([facility])(G ynecolo gy) [facility] [place] KEL[place] ([facility])(Fam jesus Med Tm B Non-AD BCC) OUTPATIENT [id number] Congest ion [phone] MONI BOSS 08/05 Released w/o Limitations [facility] [place] KELSEY[place] ([facility])(F amily Med Tm B Non-AD BCC) [facility] [place] SAPP ([facility])(Special Skills Officer ecology) OUTPATIENT [id number] pregnan cy test KELSIE INIGUEZ 08/05 Released w/o Limitations [address] [place] [address] [place] [facility])(G ynecolo gy) [address] [place] [address] [place] [facility])(War rior Op Med Cln Tm A Ad) TELE CONSULT [id number] Patient is request ing a refill on med Amitrip tyline. SIDDHARTH CURTIS 08/[address] [place] [address] [place] [facility])(W arrior Op Med Cln Tm A Ad) [address] [place] [address] [place] [facility])(Fam jesus Med Tm B Non-AD BCC) OUTPATIENT [id number] wrist pain [phone] EFREN MAYA 09/17 Released w/o Limitations [address] [place] [address] [place] [facility])(F amily Med Tm B Non-AD BCC) [address] [place] [address] [place] [facility])(War rior Op Med Cln Tm A Ad) OUTPATIENT [id number] feeling nervous all the time [phone] EFREN MAYA 02/11 Released w/o Limitations [address] [place] [address] [place])(W arrior Op Med Cln Tm A Ad) [address] [place] [address] [place] [facility])(War rior Op Med Cln Tm A Ad) OUTPATIENT [id number] abd pain [phone] EFREN MAYA 04/27 Released w/o Limitations [address] [place] [address] [place] [facility])(W arrior Op Med Cln Tm A Ad) [address] [place] [address])(War rior Op Med Cln Tm A Ad) TELE CONSULT [id number] Lab Result Review results with patient EFREN MAYA 04/[address] [place] [address] [place] [facility])(W arrior Op Med Cln Tm A Ad) [address] [place] [address] [place] [facility])(War rior Op Med Cln Tm A Ad) TELE CONSULT [id number] Notes Entered by: GENA MARTE 17 Dec 2011 1237 ------- ------- ------- ------- -- Tcon for possibl e sinus infecti on PA Florentino ph [phone] cad eduardo EASTEVONNE MCELROY George 12/[address] [place] [address])(W arrior Op Med Cln Tm A Ad) [address] [place] [address])(War rior Op Med Cln Tm A Ad) OUTPATIENT [id number] sinus infecti on [id number] EFREN MAYA 12/23 Released w/o Limitations [address] [place] [address])(W arrior Op Med Cln Tm A Ad) [address] [place] [address])(War rior Op Med Cln Tm A Ad) TELE CONSULT [id number] Notes Entered by: Duglas SILVESTRE 09 Mar 2012 1342 ------- ------- ------- ------- -- Med refill Nexium 40 mg daily Lance /[facility] [id number] ANDRAE SIMS 03/[address] [place] [address])(W arrior Op Med Cln Tm A Ad) [address] [place] [address])(War rior Op Med Cln Tm A Ad) OUTPATIENT [id number] cough congest ion [phone] LOIS IBARRA 06/09 Released w/o Limitations [address] [place] [address])(W arrior Op Med Cln Tm A Ad) [address] [place] [address])(Special Skills Officer ecology) TELE CONSULT [id number] Notes Entered by: Toby YA 10 Jun 2012 1448 ------- ------- ------- ------- -- Walk in HCG LARY NICHOLAS 06/[address] [place] [address])(G ynecolo gy) [address] [place] [address])(Fam jesus Med Tm B Non-AD BCC) TELE CONSULT [id number] Notes Entered by: RONAL NUNO 22 Jun 2012 0925 ------- ------- ------- ------- -- Vaginal pain, abnorma l JE Tiwari 06/[address] [place] [address])(F amily Med Tm B Non-AD BCC) [address] [place] [address])(Special Skills Officer ecology) TELE CONSULT [id number] Notes Entered by: LEVON FLORES 22 Jun 2012 1117 ------- ------- ------- ------- -- F/u appt for ER visit LARY NICHOLAS 06/[address] [place] [address])(G ynecolo gy) [address] [place] [address])(Special Skills Officer ecology) TELE CONSULT [id number] Notes Entered by: KARTHIK SANDOVAL 06 Jul 2012 1352 ------- ------- ------- ------- -- Resched pia [place] appt - Josue f - [phone] MARY JO ELKINS 07/06 Referred for Appointment [address] [place] [address])(G ynecodenis gy) [address] [place] [address])(Special Skills Officer ecology) OUTPATIENT [id number] Follow up ER visit, lower pelvic pain, UTI, dysuria and mild inconti ANI Evans 07/15 Released w/o Limitations [address] [place] [address])(G ynecodenis gy) [address] [place] [address])(Ob/ Special Skills Officer) TELE CONSULT [id number] Notes Entered by: TESSA SORIA 12 Aug 2012 1007 ------- ------- ------- ------- -- Lab result VERONICA JOHNS 08/[address] [place] [address])(O b/Special Skills Officer) [address] [place] [address])(Andrew riojim Op Med Cln Tm A Ad) TELE CONSULT [id number] Notes Entered by: RONAL NUNO 17 Aug 2012 1020 ------- ------- ------- ------- -- Vaginal itching /burnin g ANDRAE Nguyen 08/[address] [place] [address] [place] [facility])(W arrior Op Med Cln Tm A Ad) [address] [place] [address] [place] [facility])(Special Skills Officer ecology) TELE CONSULT [id number] Notes Entered by: TESSA SORIA 30 Aug 2012 1003 ------- ------- ------- ------- -- US result VERONICA JOHNS 08/[address] [place] [address] [place] [facility])(G ynecodenis gy) [address] [place] [address] [place] [facility])([facility] Team 3) OUTPATIENT [id number] neck and shoulde r pain x 2 weeks; denies injury, LOIS IBARRA 10/11 Released w/o Limitations [address] [place] [address])([facility] 3) [address] [place] [address] [place] [facility])([facility] Team 3) TELE CONSULT [id number] Notes Entered by: RONAL NUNO 19 Oct 2012 1356 ------- ------- ------- ------- -- Flu symptom s ANDRAE Nguyen 10/[address] [place] [address])([facility] Team 3) [address] [place] [address] [place] [facility])([facility] Team 3) TELE CONSULT [id number] Notes Entered by: SOPHIA LARA 08 Nov 2012 1206 ------- ------- ------- ------- -- Ling Devlin [id number] ANDRAE HEDRICK 11/[address] [place] [address])([facility] Team 3) [address] [place] [address])(War rior Op Med Cln Tm A Ad) TELE CONSULT [id number] Notes Entered by: OWEN NEGRETE 21 Nov 2012 0824 ------- ------- ------- ------- -- Josue ruelas/ANDRAE Mariscal 11/[address] [place] [address])(W arrior Op Med Cln Tm A Ad) [address] [place] [address])(War rior Op Med Cln Tm A Ad) TELE CONSULT [id number] Notes Entered by: KANU ANGEL 14 Dec 2012 1129 ------- ------- ------- ------- -- Network Results - Physica l Therapy - 3 LOIS IBARRA 12/[address] [place] [address])(W arrior Op Med Cln Tm A Ad) [address] [place] [address])([facility] Team 3) TELE CONSULT [id number] Notes Entered by: SHAUN JOHNSTON 22 Dec 2012 1443 ------- ------- ------- ------- -- Med Lilia- Josue ruelas/ ANDRAE SIMS 12/[address] [place] [address])([facility] Team 3) [address] [place] [address])(Andrew rior Op Med Cln Tm A Ad) TELE CONSULT [id number] Notes Entered by: KANU ANGEL 23 Jan 2013 1211 ------- ------- ------- ------- -- Network Results - Physica l Therapy - 3 MANN BUCIO 01/[address] [place] [address])(W arrior Op Med Cln Tm A Ad) [address] [place] [address])([facility] Team 3) TELE CONSULT [id number] Notes Entered by: Duglas SILVESTRE 25 Jan 2013 1510 ------- ------- ------- ------- -- Med refill Leonel MACARENA THOMAS I 01/[address] [place] [address] Group [place] [facility])(S kenisha [facility] Team 3) [address] [place] [address] [place] [facility])(War rior Op Med Cln Tm A Ad) OUTPATIENT [id number] acid relux-m ed not working , ring in L ear [id number] RAHUL SCHMITT 02/21 Released w/o Limitations [address] [place] [address] Group [place] [facility]W arrior Op Med Cln Tm A Ad) [address] [place] [address] [place] [facility])(War rior Op Med Cln Tm A Ad) TELE CONSULT [id number] Notes Entered by: RAHUL SCHMITT 22 Feb 2013 1254 ------- ------- ------- ------- -- F/u from labs RAHUL SCHMITT 02/[address] [place] [address] [place] [facility])(W arrior Op Med Cln Tm A Ad) [address] [place] [address] [place] [facility])(War rior Op Med Cln Tm A Ad) TELE CONSULT [id number] Notes Entered by: STARLA MARES 03 Mar 2013 1510 ------- ------- ------- ------- -- Ear pain/Giraldo jae / JODIE RODRIGUEZ 03/03 Referred for Appointment [address] [place] [address] Group [place] [facility])(W arrior Op Med Cln Tm A Ad) [address] [place] [address] [place] [facility])(War rior Op Med Cln Tm A Ad) OUTPATIENT [id number] ear pain JYOTHI BATES 03/06 Released w/o Limitations [address] [place] [address] Group [place] [facility])(W arrior Op Med Cln Tm A Ad) [address] [place] [address] [place] [facility])(War rior Op Med Cln Tm A Ad) TELE CONSULT [id number] Notes Entered by: SOPHIA LARA 09 Mar 2013 1506 ------- ------- ------- ------- -- Referra [facility] - [phone] JODIE RODRIGUEZ 03/09 Referred for Appointment [address] [place] [address] [place] [facility])(W arrior Op Med Cln Tm A Ad) [address] [place] [address] [place] [facility])(Special Skills Officer ecology) TELE CONSULT [id number] Notes Entered by: SUSAN CONTRERAS 27 Apr 2013 0942 ------- ------- ------- ------- -- Walk in for pregnan cy test SANDRA YONG T 04/[address] [place] [address])(Geoffrey arenas) [address] [place] [address])(War rior Op Med Cln Tm A Ad) TELE CONSULT [id number] Notes Entered by: Duglas SILVESTRE 28 Apr 2013 1157 ------- ------- ------- ------- -- Sinus infecti on Hargr es EB DOMINGO 04/[address] [place] [address])(W arrior Op Med Cln Tm A Ad) [address] [place] [address] [place] [facility])(War valerier Op Med Cln Tm A Ad) TELE CONSULT [id number] Notes Entered by: STARLA MARES 01 May 2013 08 ------- ------- ------- ------- -- Appt request /beverley lomas/[phone] EB DOMINGO 05/[address] [place] [address])(W arrior Op Med Cln Tm A Ad) [address] [place] [address])(Ob/ Special Skills Officer) OUTPATIENT [id number] New OB with IBS EDC approx Oct 14. CLEMENTINA DAVILA 05/01 Released w/o Limitations [address] [place] [address])(O b/Special Skills Officer) [address] [place] [address])(Ob/ Special Skills Officer) OUTPATIENT [id number] Notes Entered by: JENI CHEN 05 May 2013 1132 ------- ------- ------- ------- -- NIC RAHMAN 5May14/ repeat u/s CLEMENTINA DAVILA 05/05 Released w/o Limitations [facility] [place])(O b/Special Skills Officer) [address] [place], [place] [address]B [place])(Ob/ Special Skills Officer) TELE CONSULT [id number] Notes Entered by: MARY JO ELKINS 10 May 2013 1250 ------- ------- ------- ------- -- Constip CLEMENTINA Stanley 05/[address] [place], [place] [address]B ([facility])(O b/Special Skills Officer) [address] [place], [place] [address]B [place])(Ob/ Special Skills Officer) OUTPATIENT [id number] NIC RAHMAN 5MAY14 GUERRERO DWYER 05/25 Released w/o Limitations [address] [place], [place] [address]B [place])(O b/Special Skills Officer) [address] [place], [place] [address]B [place])(Ob/ Special Skills Officer) TELE CONSULT [id number] Notes Entered by: MARY JO ELKINS 03 Jul 2013 1451 ------- ------- ------- ------- -- Medicat MARY JO Guerrero 07/[address] [place] [address])(O b/Special Skills Officer) [address] [place], [place] [address]B [place])(Ob/ Special Skills Officer) TELE CONSULT [id number] Notes Entered by: MARY JO ELKINS 05 Jul 2013 1309 ------- ------- ------- ------- -- Cold Symptom s MARY JO ELKINS 07/[address] [place], [place] [address]B ([facility])(O b/Special Skills Officer) [address] [place], [place] [address]B ([facility])(Ob/ Special Skills Officer) OUTPATIENT [id number] NIC RAHMAN December 13 VIOLET WALKER 07/06 Released w/o Limitations [facility])(O b/Special Skills Officer) [address] [place] [address])(Ob/ Special Skills Officer) TELE CONSULT [id number] Notes Entered by: MARY JO ELKINS 06 Jul 2013 1426 ------- ------- ------- ------- -- MF MARY JO Corley 07/[address] [place] [address])(O b/Special Skills Officer) [address] [place] [address])(Ob/ Special Skills Officer) TELE CONSULT [id number] Notes Entered by: MARY JO ELKINS 17 Jul 2013 1109 ------- ------- ------- ------- -- Anxiety MARY JO ELKINS 07/[address] [place] [address])(O b/Special Skills Officer) [address] [place] [address])(Ob/ Special Skills Officer) TELE CONSULT [id number] Notes Entered by: LASHELL PARIS 18 Jul 2013 0758 ------- ------- ------- ------- -- Network Results [facility] GUERRERO DWYER 07/[address] [place] [address])(O b/Special Skills Officer) [address] [place] [address])(Ob/ Special Skills Officer) OUTPATIENT [id number] evaluat ion for anti-an xiety medicat ion d/t acute panic attacks GUERRERO DWYER 07/18 Released w/o Limitations [address] [place] [address])(O b/Special Skills Officer) [address] [place] [address])(Ob/ Special Skills Officer) TELE CONSULT [id number] Notes Entered by: MARY JO ELKINS 11 Aug 2013 1606 ------- ------- ------- ------- -- Medicat ion Refill GUERRERO DWYER 08/[address] [place] [address])(O b/Special Skills Officer) [address] [place] [address])(Ob/ Special Skills Officer) TELE CONSULT [id number] Notes Entered by: LASHELL PARIS 16 Aug 2013 1040 ------- ------- ------- ------- -- Network Results -OBSTET RICS 08/14/13 ANI CHOI 08/[address] [place] [address])(O b/Special Skills Officer) [address] [place] [address])(Ob/ Special Skills Officer) OUTPATIENT [id number] [facility] december 13 GUERRERO DWYER 08/17 Released w/o Limitations [address] [place] [address] [place] [facility])(O b/Special Skills Officer) [address] [place] [address])(Ob/ Special Skills Officer) TELE CONSULT [id number] Notes Entered by: ST KATERYNA DAVILA 27 Aug 2013 1307 ------- ------- ------- ------- -- anxiety CLEMENTINA DAVILA 08/[address] [place] [address])(O b/Special Skills Officer) [address] [place] [address])(Ob/ Special Skills Officer) OUTPATIENT [id number] follow up appt/an xiety attacks /treatm ent plan GUERRERO DWYER 08/28 Released w/o Limitations [address] [place] [address])(O b/Special Skills Officer) [address] [place] [address] [place] [facility])(Ob/ Special Skills Officer) TELE CONSULT [id number] Notes Entered by: Aster DWYER 29 Aug 2013 0908 ------- ------- ------- ------- -- Anxiety GUERRERO DWYER 08/[address] [place] [address])(O b/Special Skills Officer) [address] [place] [address])(Ob/ Special Skills Officer) TELE CONSULT [id number] Notes Entered by: Duglas DAVIES 05 Sep 2013 1131 ------- ------- ------- ------- -- ANTONIO Puente 09/[address] [place] [address] [place] [facility])(O b/Special Skills Officer) [address] [place] [address])(Ob/ Special Skills Officer) OUTPATIENT [id number] f/u hospita lizatio n/anxie ANI Irving 09/08 Released w/o Limitations [address] [place] [address] [place] [facility])(O b/Special Skills Officer) [address] [place] [address])(Ob/ Special Skills Officer) TELE CONSULT [id number] Notes Entered by: ME JARED CANO 12 Sep 2013 1146 ------- ------- ------- ------- -- Insomni a 24 6/7 week Ob-per our convers GUERRERO Alanis 09/[address] [place] [address])(O b/Special Skills Officer) [address] [place] [address] [place] [facility])(Sco [facility] Fam Res [place]) TELE CONSULT [id number] Notes Entered by: Jim ENRIQUEZ 12 Sep 2013 1747 ------- ------- ------- ------- -- seen inpatie nt, needs THELMA Barahona 09/[address] [place] [address])([facility] Res [place] [place]) [address] [place] [address])(Ob/ Special Skills Officer) TELE CONSULT [id number] Notes Entered by: MARY JO ELKINS 13 Sep 2013 1540 ------- ------- ------- ------- -- MACARENA Rao I 09/[address] [place] [address])(O b/Special Skills Officer) [address] [place] [address])(Ob/ Special Skills Officer) OUTPATIENT [id number] NEW MEDICAT ION FOLLOW UP/EDC DECEMBER 13 GUERRERO DWYER 09/15 Released w/o Limitations [address] [place] [address])(O b/Special Skills Officer) [address] [place] [address] [place] [facility])(Ob/ Special Skills Officer) TELE CONSULT [id number] Notes Entered by: MARY JO ELKINS 19 Sep 2013 1505 ------- ------- ------- ------- -- Medicat ramandeep heredia YULIYAGUERRERO 09/[address] [place] [address])(O b/Special Skills Officer) [address] [place] [address])(Special Skills Officer ecology) TELE CONSULT [id number] Notes Entered by: LASHELL PARIS 20 Sep 2013 0816 ------- ------- ------- ------- -- Network Results [facility] 09[facility]13 ANI CHOI 09/[address] [place] [address])(Geoffrey razo gy) [address] [place] [address])(Ob/ Special Skills Officer) OUTPATIENT [id number] nic edc december 13 THELMA HA 09/21 Released with Work/Duty Limitations [address] [place] [address])(O b/Special Skills Officer) [address] [place] [address])(Ob/ Special Skills Officer) OUTPATIENT [id number] HROB EDCDecember 13 YULIYA GUERRERO B 09/25 Released w/o Limitations [address] [place] [address])(O b/Special Skills Officer) [address] [place] [address])(Ob/ Special Skills Officer) TELE CONSULT [id number] Notes Entered by: YAZAN MILLS 26 Sep 2013 0920 ------- ------- ------- ------- -- HROB-vo augustine/ CLEMENTINA Perez 09/[address] [place] [address])(O b/Special Skills Officer) [address] [place] [address])(Ob/ Special Skills Officer) TELE CONSULT [id number] Notes Entered by: MARY JO ELKINS 02 Oct 2013 1052 ------- ------- ------- ------- -- [facility] MARY JO Corley 10/[address] [place] [address])(O b/Special Skills Officer) [facility] Medical Group [place] ([facility])(Special Skills Officer ecology) TELE CONSULT [id number] Notes Entered by: Aster DWYER 03 Oct 2013 0803 ------- ------- ------- ------- -- Abnorma l glucose screen GUERRERO DWYER 10/[address] [place] [address] Group [place] ([facility])( dontrellalka gy) [facility] Medical [facility] [place] ([facility])(Ob/ Special Skills Officer) OUTPATIENT [id number] HROB/ EDC December 13 GUERRERO DWYER 10/05 Released w/o Limitations [facility] Medical Group [place] ([facility])(O b/Special Skills Officer) [address] [place] [address] [place] ([facility])(Special Skills Officer ecology) TELE CONSULT [id number] Notes Entered by: Aster DWYER 06 Oct 2013 1542 ------- ------- ------- ------- -- Elevate d 3 hr GTT MACARENA THOMAS I 10/[address] [place] [address] Group [place] [employer] ([facility]G ybraxtoncodenis gy) [address] [place] [address] [place] [employer] ([facility])(Ob/ Special Skills Officer) OUTPATIENT [id number] HROB/ EDC GUERRERO DWYER 10/13 Released w/o Limitations [address] [place] [address] Group [place] [employer] ([facility])(O b/Special Skills Officer) [facility] [place] [employer] ([facility])(Ob/ Special Skills Officer) TELE CONSULT [id number] Notes Entered by: LASHELL PARIS 18 Oct 2013 0905 ------- ------- ------- ------- -- Network Results -OBSTET RICS 10/05/13 CLEMENTINA DAVILA 10/[address] [place] [address] Group [place] [employer] ([facility])(O b/Special Skills Officer) [facility] [place] [employer] ([facility])(Ob/ Special Skills Officer) OUTPATIENT [id number] HROB/ EDC December 13 GUERRERO DWYER 10/19 Released w/o Limitations [address] [place] [address] Group [place] [employer] ([facility])(O b/Special Skills Officer) [address] [place] [address] [facility]Ob/ Special Skills Officer) TELE CONSULT [id number] Notes Entered by: LASHELL PARIS 20 Oct 2013 1131 ------- ------- ------- ------- -- Network Results -OBSTET RICS 10/06/13 GUERRERO DWYER 10/[address] [place] [address] [place] ([facility])(O b/Special Skills Officer) [address] [place] [address] [place] [employer] [place])([facility]) TELE CONSULT [id number] Notes Entered by: CATHY TOMAS 25 Oct 2013 1058 ------- ------- ------- ------- -- Message from OB TEAM CATHY TOMAS 10/[address] [place] [address] [place] [employer] ([facility] [address] [place] [address] [place] [employer] ([facility])(Special Skills Officer ecology) TELE CONSULT [id number] Notes Entered by: Aster DWYER 26 Oct 2013 0954 ------- ------- ------- ------- -- Pt phoneca ll GUERRERO DWYER 10/[address] [place] [address] [place] [facility]G ynecolo gy) [address] [place] [address] [place] [facility]Ob/ Special Skills Officer) OUTPATIENT [id number] HROB EDC [id number] CLEMENTINA DAVILA 10/26 Released w/o Limitations [facility] [place] [employer] [place])(O b/Special Skills Officer) [address] [place] [address] [place] [facility]Ob/ Special Skills Officer) TELE CONSULT [id number] Notes Entered by: RADHA LANZA 27 Oct 2013 1511 ------- ------- ------- ------- -- Medicat ion inquiry GAYE DECKER 10/[address] [place] [address] [place] [employer] ([facility])(O b/Special Skills Officer) [address] [place] [address] [place] [employer] [place])(Ob/ Special Skills Officer) TELE CONSULT [id number] Notes Entered by: RADHA LANZA 30 Oct 2013 0915 ------- ------- ------- ------- -- Medicat ion reactio n GAYE DECKER 10/[address] [place] [address])(O b/Special Skills Officer) [address] [place] [address])([facility]) OUTPATIENT [id number] [facility] REYES CHOWDHURY 11/03 Released w/o Limitations [address] [place] [address])(N utritio nal Medicin e) [address] [place] [address])(Ob/ Special Skills Officer) TELE CONSULT [id number] Notes Entered by: RADHA LANZA 08 Nov 2013 0803 ------- ------- ------- ------- -- Refill prescri ption GAYE DECKER 11/[address] [place] [address])(O b/Special Skills Officer) [address] [place] [address])(War rior Op Med Cln Tm A Ad) OUTPATIENT [id number] Cough/C ongesti on TERESOCHETNA OLIVARES 11/08 Released w/o Limitations [address] [place] [address])(W arrior Op Med Cln Tm A Ad) [address] [place] [address])(Ob/ Special Skills Officer) OUTPATIENT [id number] HROB EDC [id number] GUERRERO DWYER 11/13 Released w/o Limitations [address] [place] [address])(O b/Special Skills Officer) [address] [place] [address])(Ob/ Special Skills Officer) OUTPATIENT [id number] HROB/ED C December 13 CLEMENTINA DAVILA 11/27 Released w/o Limitations [address] [place], [place] [address]B [place])(O b/Special Skills Officer) [address] [place] [address])(Ob/ Special Skills Officer) TELE CONSULT [id number] Notes Entered by: JANINA MUHAMMAD 04 Dec 2013 0933 ------- ------- ------- ------- -- Nausea and dry heaving MACARENA THOMAS I 12/[address] [place] [address] [employer] ([facility]O b/Special Skills Officer) 375 [facility] [place] [employer] ([facility])(Ob/ Special Skills Officer) TELE CONSULT [id number] Notes Entered by: LASHELL PARIS 11 Dec 2013 1121 ------- ------- ------- ------- -- Network Results -OBSTET RICS 12/04/13 GUERRERO DWYER 12/[address] [place] [address] [place] [employer] ([facility])(O b/Special Skills Officer) [address] [place] [address] [place] [employer] ([facility])(Ob/ Special Skills Officer) OUTPATIENT [id number] Post check up/del December 13 CLEMENTINA DAVILA 12/21 Released w/o Limitations [address] [place] [address] [place] [employer] ([facility])(O b/Special Skills Officer) [address] [place] [address] [place] [employer] ([facility])(Ob/ Special Skills Officer) OUTPATIENT [id number] 6WPP/ Del 05 Dec 2013 ANI CHOI 01/23 Released w/o Limitations [address] [place] [address] [place] [employer] ([facility])(O b/Special Skills Officer) [facility] [place] [employer] ([facility])(Special Skills Officer ecology) OUTPATIENT [id number] diaphra ALYSSA Michel 02/20 Released w/o Limitations [address] [place] [address] [place] [employer] ([facility])(Geoffrey razo gy) [address] [place] [address] [place] [employer] [place])(Andrew rior Op Med Cln Tm A Ad) TELE CONSULT [id number] Notes Entered by: Abelino SILVESTRE 01 May 2014 1304 ------- ------- ------- ------- -- SOFIA RUVALCABA/Gayle ceballos/ [phone] EVONNE BRAR 05/[address] [place] [address] [place] [employer] ([facility])(W arrior Op Med Cln Tm A Ad) [address] [place] [address] [place] [employer] ([facility])(Special Skills Officer ecology) OUTPATIENT [id number] LUISANA ALEXANDER 06/04 Released w/o Limitations [address] [place] [address] [place] [employer] ([facility])(Geoffrey razo gy) [facility] [place] [employer] ([facility])(Special Skills Officer ecology) OUTPATIENT [id number] Paratyrone d Inserti on [id number] LUISANA DEVLIN MELO 06/18 Released w/o Limitations Medical Group [place] [facility])(G ynecolo gy) [facility] [place] [facility])(War rior Op Med Cln Tm A Ad) OUTPATIENT [id number] right wrist pain - [id number] CHTENA MESA 07/09 Released w/o Limitations [facility] Group [place] [facility])(W arrior Op Med Cln Tm A Ad) Medical [facility] [place] [facility])(Special Skills Officer ecology) OUTPATIENT [id number] paraa rd placeme nt check LUISANA DEVLINENE 09/07 Released w/o Limitations [facility] Group [place] [facility] ([facility])(G ynecolo gy) [facility] Group [place] [facility] ([facility])(War rior Op Med Cln Tm A Ad) TELE CONSULT [id number] Notes Entered by: ROZ GASTELUM 21 Sep 2014 1006 ------- ------- ------- ------- -- SX - multipl e sx/Elsn er-[facility] t/ * MANN COLON 09/21 [facility] [place] [facility])(W arrior Op Med Cln Tm A Ad) [facility] [place] [facility])( rior Op Med Cln Tm A Ad) OUTPATIENT [id number] Ovarian Cyst, ER Visit LAMAR Donnelly 09/24 Released w/o Limitations [facility] [place] [facility] ([facility])(W arrior Op Med Cln Tm A Ad) [facility] Medical Group [place] [facility])(Special Skills Officer ecology) OUTPATIENT [id number] Possibl e Ovarion Cyst GUERRERO DWYER 09/24 Released w/o Limitations [facility] [place] [employer] ([facility])(G ynecolo gy) [address] [place] [address] [place] [facility])(Ob/ Special Skills Officer) TELE CONSULT [id number] Notes Entered by: Aster DWYER 04 Oct 2014 1623 ------- ------- ------- ------- -- U/S results VERONICA JOHNS 10/04 [facility] Medical Group [place] [facility] ([facility])(O b/Special Skills Officer) [facility] Medical Group [place] [facility] ([facility])(War rior Op Med Cln Tm A Ad) OUTPATIENT [id number] pain in both feet -L is worse x 1wk [id number] TENZIN HOPE 12/11 Released w/o Limitations [facility] Medical Group [place] [employer] ([facility])(W arrior Op Med Cln Tm A Ad) [facility] Medical Group [place] B ([facility])(War rior Op Med Cln Tm A Ad) TELE CONSULT [id number] Notes Entered by: KANU ANGEL 29 Jan 2015 1253 ------- ------- ------- ------- -- Network results Neurolo gy 5 TENZIN HOPE 01/29 [facility] Medical Group [place] [facility] ([facility])(W arrior Op Med Cln Tm A Ad) [facility] Medical Group [place] [facility] ([facility])(Special Skills Officer ecology) OUTPATIENT [id number] michell [facility] [phone] ALYSSA COLÓN 02/05 Released w/o Limitations [address] [place] [address] Group [facility] ([facility])(Geoffrey razo gy) [facility] Medical [facility] ([facility])(Special Skills Officer ecology) TELE CONSULT [id number] Notes Entered by: ANDREWS COLÓN 12 Feb 2015 1635 ------- ------- ------- ------- -- results LAMAR ALVARADO 02/[address] [place] [address] Group [place] ([facility])(G dung gy) [address] [place] [address] Group [facility] ([facility])(War rior Op Med Cln Tm A Ad) TELE CONSULT [id number] Notes Entered by: KANU ANGEL 01 Mar 2015 0938 ------- ------- ------- ------- -- Network results Charbelo gy 5 TENZIN HOPE 03/[address] [place] [address])(W arrior Op Med Cln Tm A Ad) [address] [place] [address])(Special Skills Officer ecology) TELE CONSULT [id number] Notes Entered by: JUAN ALBERTO GRIMM 10 Apr 2015 1049 ------- ------- ------- ------- -- Sx - Multipl e sx/Layla pagne/6 [phone]. [phone] ANANDA WILLAMS 04/[address] [place] [address])(G ynecolo gy) [address] [place] [address])(Special Skills Officer ecology) OUTPATIENT [id number] pelvic pain, vaginal bleedin g x 2weeks AMAYA BAEZ 04/11 Released w/o Limitations [address] [place] [address])(G ynecolo gy) [address] [place] [address])(War rior Op Med Cln Tm A Ad) TELE CONSULT [id number] Notes Entered by: SAILAJA DEVLIN 15 Apr 2015 0818 ------- ------- ------- ------- -- Lab Results / [facility] ne / KEL THOMPSON 04/[address] [place] [address])(W arrior Op Med Cln Tm A Ad) [address] [place] [address])(War rior Op Med Cln Tm A Ad) TELE CONSULT [id number] Notes Entered by: ALESIA BARRAGAN 26 Apr 2015 1103 ------- ------- ------- ------- -- ER Follow- up/ [facility] ne/ 741.401 2 MANN COLON 04/[address] [place] [address])(W arrior Op Med Cln Tm A Ad) [address] [place] [address])(Special Skills Officer ecology) OUTPATIENT [id number] discuss tubalig ation [id number] GUERRERO DWYER 04/30 Released w/o Limitations [address] [place] [address])(G ynecolo gy) [address] [place] [address])(War rior Op Med Cln Tm A Ad) TELE CONSULT [id number] Notes Entered by: JEN BADILLO 23 May 2015 1046 ------- ------- ------- ------- -- Network Results -GASTRO ENTEROL OGY 5 TENZIN HOPE 05/[address] [place] [address])(W arrior Op Med Cln Tm A Ad) [address] [place] [address])(Special Skills Officer ecology) TELE CONSULT [id number] Notes Entered by: GILSON THOMSON 04 Jun 2015 0811 ------- ------- ------- ------- -- Cancel for Bella d/t jad- GILSON Osuna 06/[address] [place] [address])(Geoffrey razo gy) [address] [place] [address])(Special Skills Officer ecology) TELE CONSULT [id number] Notes Entered by: Aster DWYER 05 Jun 2015 0859 ------- ------- ------- ------- -- U/S result VERONICA JOHNS 06/[address] [place] [address])(G dung gy) [address] [place] [address])(War rior Op Med Cln Tm A Ad) OUTPATIENT [id number] Bad cough, headach e, nasal and chest congest ion [id number] PLACIDO MERAZ 06/05 Released w/o Limitations [address] [place] [address])(W arrior Op Med Cln Tm A Ad) [address] [place] [address])(War rior Op Med Cln Tm A Ad) TELE CONSULT [id number] Notes Entered by: KANU ANGEL 07 Jun 2015 1008 ------- ------- ------- ------- -- Network results Neurolo gy 5 TENZIN HOPE 06/[address] [place] [address])(W arrior Op Med Cln Tm A Ad) [address] [place] [address])(Fam jseus Med Tm B Non-AD BCC) TELE CONSULT [id number] Notes Entered by: MANN COLON 22 Aug 2015 0755 ------- ------- ------- ------- -- Referra [place] for physica l therapy needed MANN COLON 08/[address] [place] [address])(F amily Med Tm B Non-AD BCC) [address] [place] [address])(War rior Op Med Cln Tm A Ad) TELE CONSULT [id number] Notes Entered by: Delgado PIERCE 26 Aug 2015 1313 ------- ------- ------- ------- -- SX - Cody VALERA / Gil ne / JOE ASH 08/26 Referred for Appointment [address] [place] [address])(W arrior Op Med Cln Tm A Ad) [address] [place] [address])(War rior Op Med Cln Tm A Ad) TELE CONSULT [id number] Notes Entered by: KANU ANGEL 28 Aug 2015 1302 ------- ------- ------- ------- -- Network Results - Neurolo gy 6 TENZIN HOPE 08/[address] [place] [address])(W arrior Op Med Cln Tm A Ad) [address] [place] [address])(Special Skills Officer ecology) OUTPATIENT [id number] Discuss Essure procedu re MEINHART, ANI R A 09/23 Released w/o Limitations [address] [place] [address])(G dung gy) [address] [place] [address])(War rior Op Med Cln Tm A Ad) OUTPATIENT [id number] L and R shoulde r pain x 2 wks 741.401 2 TENZIN HOPE 09/25 Released w/o Limitations [address] [place] [address])(W arrior Op Med Cln Tm A Ad) [address] [place] [address])(War rior Op Med Cln Tm A Ad) TELE CONSULT [id number] Notes Entered by: JUAN ALBERTO GRIMM 02 Oct 2015 1405 ------- ------- ------- ------- -- Sx - Multipl e sx/Layla blainene/7 41.4012 JOE ASH 10/01 Referred for Appointment [address] [place] [address])(W arrior Op Med Cln Tm A Ad) [address] [place] [address])(Special Skills Officer ecology) TELE CONSULT [id number] Notes Entered by: DIMPLE MALIK 03 Oct 2015 0927 ------- ------- ------- ------- -- Pre-op call for Essure on 10 Oct 2015 FAMILIA THOMPSON 10/[address] [place] [address])(Geoffrey razo gy) [address] [place] [address])(War rior Op Med Cln Tm A Ad) OUTPATIENT [id number] cough, congest ion and ear pain TENZIN HOPE 10/02 Released w/o Limitations [address] [place] [address])(W arrior Op Med Cln Tm A Ad) [address] [place] [address])(Special Skills Officer ecology) OUTPATIENT [id number] essure procedu re - [phone] ANI CHOI 10/09 Released w/o Limitations [address] [place] [address])(Geoffrey razo gy) [address] [place] [address])(Special Skills Officer ecology) TELE CONSULT [id number] Notes Entered by: DANIELLE MALIKAH Reynaldo 11 Oct 2015 0859 ------- ------- ------- ------- -- Callba k for Essure on 10 Oct 2015 DIMPLE JOHNSON Geoffrey 10/10 Referred for Appointment [address] [place] [address])( kamalahidenis gy) [address] [place] [address])(Special Skills Officer ecology) TELE CONSULT [id number] Notes Entered by: LEVON FLORES 15 Oct 2015 1032 ------- ------- ------- ------- -- Bleedin g after ESSURE procedu re on Oct 15. DIMPLE JOHNSON 10/14 Referred for Appointment [address] [place] [address])(Geoffrey razo gy) [address] [place] [address])(Med ication Refill Clinic) TELE CONSULT [id number] Notes Entered by: Delgado PIERCE 21 Oct 2015 1501 ------- ------- ------- ------- -- Baljit corbett / Gil ne / ZULMA JAMISON 10/[address] [place] [address])(M edicati on Refill Clinic) [address] [place] [address])(Med ication Refill Clinic) TELE CONSULT [id number] Notes Entered by: Vidal YA 17 Dec 2015 1144 ------- ------- ------- ------- -- Mary Mccarty Jan 15 / Gil limon / DENIZ FRANKLIN 12/[address] [place] [address])(M edicati on Refill Clinic) [address] [place] [address])(Special Skills Officer ecology) OUTPATIENT [id number] [facility] s/p bella - GIANNA STRAUSS 01/06 Released w/o Limitations [employer] [place] [employer] ([facility])(G ynecolo gy) 375 [facility] [place] [employer] ([facility])(War rior Op Med Cln Tm A Ad) OUTPATIENT [id number] Med Renewal s 741.401 2 TENZIN HOPE 01/07 Released w/o Limitations [facility] [place] [employer] ([facility])(W arrior Op Med Cln Tm A Ad) Medical [employer] [place] [employer] ([facility])(Special Skills Officer ecology) OUTPATIENT [id number] possibl e yeast infecti on [phone] AMAYA BAEZ 03/04 Released w/o Limitations [facility] Group [place] [employer] ([facility])(G ynecolo gy) [facility] [place] [employer] ([facility])(Special Skills Officer ecology) TELE CONSULT [id number] Notes Entered by: KYLE BAEZ 16 Mar 2016 1032 ------- ------- ------- ------- -- Test results LAMAR ALVARADO 03/16 [facility] Group [place] [employer] ([facility])(G ynecolo gy) [facility] [employer] [place])(Sco tt MTF OP) OUTPATIENT [id number] PATRICIA Serna pt 04/10 Released w/o Limitations [facility] [place] [employer] ([facility])(S cott SCF OP) [facility] [employer] ([facility])(Special Skills Officer ecology) OUTPATIENT [id number] repeat hsg - rt side - s/p KARI Pierce 04/14 Released w/o Limitations [employer] [place] [employer] ([facility])(G ynecolo gy) [facility] [employer] ([facility])(Special Skills Officer ecology) OUTPATIENT [id number] TREY LOREDOI ON - [phone] KARI VANEGAS 04/21 Released w/o Limitations [facility] [place] [employer] ([facility])(G ynecolo gy) [facility] [employer] ([facility])(Fam jesus Med Tm B Non-AD BCC) OUTPATIENT [id number] pressur e headach e - sore throat from drainag e - [phone] DEVIN GIBSON 06/08 Released w/o Limitations [facility] Group [facility])(F amily Med Tm B Non-AD BCC) [facility])(War rior Op Med Cln Tm A Ad) OUTPATIENT [id number] med renewal /referr MILLY Duong 07/14 Released w/o Limitations [facility])(W arrior Op Med Cln Tm A Ad) [address] [place] [address])(War rior Op Med Cln Tm A Ad) OUTPATIENT [id number] sore throat, fever, body aches x2 days / TENZIN HOPE 09/02 Released w/o Limitations [facility])(W arrior Op Med Cln Tm A Ad) [address] [place] [address])(War rior Op Med Cln Tm A Ad) TELE CONSULT [id number] Notes Entered by: GLEN COTO 14 Sep 2016 0946 ------- ------- ------- ------- -- Network Results Radiolo gy 7 DS TENZIN HOPE 09/[address] [place] [address])(W arrior Op Med Cln Tm A Ad) [address] [place] [address])(War rior Op Med Cln Tm A Ad) TELE CONSULT [id number] Notes Entered by: JEN BADILLO 14 Sep 2016 1211 ------- ------- ------- ------- -- Network Results -GASTRO ENTEROL OGY 08/28/16 SDG TENZIN HOPE 09/[address] [place] [address])(W arrior Op Med Cln Tm A Ad) [address] [place] [address])(War rior Op Med Cln Tm A Ad) OUTPATIENT [id number] Knot near R Collar bone [id number] TENZIN HOPE 10/23 Released w/o Limitations [address] [place] [address] Group [facility])(W arrior Op Med Cln Tm A Ad) [address] [place] [address])(War rior Op Med Cln Tm A Ad) OUTPATIENT [id number] dizzy, headach es, ear aches, [id number] MILLY BEGUM 12/14 Released w/o Limitations [address] [place] [address])(W arrior Op Med Cln Tm A Ad) [address] [place] [address])(War rior Op Med Cln Tm A Ad) TELE CONSULT [id number] Notes Entered by: TONY FOFANA 06 Jan 2017 1002 ------- ------- ------- ------- -- Network results Gastroe nterolo gy 12/31/16 MMM TENZIN HOPE 01/[address] [place] [address])(W arrior Op Med Cln Tm A Ad) [address] [place] [address])(Med ication Refill Clinic) TELE CONSULT [id number] Notes Entered by: CRISTI CAREY 12 Jan 2017 1300 ------- ------- ------- ------- -- Med renewal /Kathy gne/618 .741.40 12/clm MILLY BEGUM 01/[address] [place] [address])(Michel bob on Refill Clinic) [address] [place] [address])(War rior Op Med Cln Tm A Ad) OUTPATIENT [id number] Dizzine ss, 741.401 2 PLACIDO MERAZ 02/08 Released w/o Limitations [address] [place] [address])(W arrior Op Med Cln Tm A Ad) [address] [place] [address])(War rior Op Med Cln Tm A Ad) TELE CONSULT [id number] Notes Entered by: JUAN ALBERTO GRIMM 25 Feb 2017 1202 ------- ------- ------- ------- -- Sx - Dizzine ss, R ear pain/Ch sharifagnaster / DARIENRAVIN Ventura 02/[address] [place] [address])(W arrior Op Med Cln Tm A Ad) [address] [place] [address])(Fam jesus Med Tm B Non-AD BCC) TELE CONSULT [id number] Notes Entered by: CARLOS MANUEL CORTES 02 Mar 2017 1615 ------- ------- ------- ------- -- Network Results Emergen cy Room 7 PLACIDO MERAZ 03/[address] [place] [address])(F amily Med Tm B Non-AD BCC) [address] [place] [address])(Med ication Refill Clinic) TELE CONSULT [id number] Notes Entered by: HORTENCIA OLGUIN RET 15 Apr 2017 1145 ------- ------- ------- ------- -- Rx Renewal /Kathy schuler/618 .741.40 12 [facility] WICHO RUCKER 04/[address] [place] [address])(Michel bob on Refill Clinic) [address] [place] [address])(War rior Op Med Cln Tm A Ad) OUTPATIENT [id number] ear problem s 2 months TENZIN HOPE 04/19 Released w/o Limitations [address] [place] [address])(W arrior Op Med Cln Tm A Ad) [address] [place] [address])(War rior Op Med Cln Tm A Ad) TELE CONSULT [id number] Notes Entered by: HORTENCIA OLGUIN RET 29 Jun 2017 0726 ------- ------- ------- ------- -- Sx: Multi/C miguel heredia/ madelin DARIENRAVIN Ventura 06/[address] [place] [address] Group [place] [facility])(W arrior Op Med Cln Tm A Ad) [address] [place] [address] Group [place] [facility])(War rior Op Med Cln Tm A Ad) OUTPATIENT [id number] sore throat, low grade temp 99-100, sinus congest kin sabillon TENZIN HOPE 06/29 Released w/o Limitations [address] [place] [address] Group [place] [facility]W arrior Op Med Cln Tm A Ad) [address] [place] [address] [place] [facility])(War rior Op Med Cln Tm A Ad) TELE CONSULT [id number] Notes Entered by: ELISABET JOHNSON 02 Jul 2017 1226 ------- ------- ------- ------- -- Positiv e Strep Throat Culture TENZIN HOPE 07/[address] [place] [address] [place] [facility])(W arrior Op Med Cln Tm A Ad) [address] [place] [address] [place] [facility])(Special Skills Officer ecology) OUTPATIENT [id number] bloody dischar ge x 1 week - [phone] AMAYA BAEZ 07/20 Released w/o Limitations [address] [place] [address] [place] [facility])(G ynecolo gy) [address] [place] [address] [place] [facility])(Special Skills Officer ecology) TELE CONSULT [id number] Notes Entered by: KYLE BAEZ 10 Aug 2017 1317 ------- ------- ------- ------- -- Test results VERONICA JOHNS 08/[address] [place] [address] [place] [facility])(G ynecolo gy) [address] [place] [address] [place] [facility])(Fam jesus Med Tm B Non-AD BCC) OUTPATIENT [id number] [facility] F/U-SX Persist Ringing L ear/cou gh/sirisha estion [id number] KOBE SELF 09/08 Released w/o Limitations [address] [place] [address] [place] [facility])(F amily Med Tm B Non-AD BCC) [address] [place] [address] [place] [facility])(Med ication Refill Clinic) TELE CONSULT [id number] Notes Entered by: JUAN ALBERTO GRIMM 10 Sep 2017 0839 ------- ------- ------- ------- -- Med Renewal /Kathy gnaster/[phone] 12 DARIENRAVIN Ventura J 09/[address] [place] [address])(Michel bob on Refill Clinic) [address] [place] [address])(War rior Op Med Cln Tm A Ad) TELE CONSULT [id number] Notes Entered by: HORTENCIA OLGUIN RET 13 Sep 2017 1022 ------- ------- ------- ------- -- SX: Left Ear pain/Ch sharifaaster / [facility] DARIENRAVIN Ventura J 09/[address] [place] [address])(W arrior Op Med Cln Tm A Ad) [address] [place] [address])(War rior Op Med Cln Tm A Ad) TELE CONSULT [id number] Notes Entered by: ALEJO BERNAL 23 Sep 2017 1159 ------- ------- ------- ------- -- Network Results Emergen cy Room 09/02/17 CANDI CAROLINA 09/[address] [place] [address])(W arrior Op Med Cln Tm A Ad) [address] [place] [address])(Special Skills Officer ecology) OUTPATIENT [id number] discuss btl/rem essure coils - [phone] KARI VANEGAS 10/05 Released w/o Limitations [address] [place] [address])(G ynecodenis gy) [address] [place] [address])(Ob/ Special Skills Officer) TELE CONSULT [id number] YONG FLORES 10/[address] [place] [address])(O b/Special Skills Officer) [address] [place] [address])(War rior Op Med Cln Tm A Ad) TELE CONSULT [id number] Notes Entered by: Vidal YEUNG 12 Oct 2017 1047 ------- ------- ------- ------- -- Network results Gastroe lisaorianadenis gy 018 TENZIN MIDDLETON Delgado 10/[address] [place] [address])(W arrior Op Med Cln Tm A Ad) [address] [place] [address])(Special Skills Officer ecology) TELE CONSULT [id number] Notes Entered by: Dilma ALVAREZ 12 Oct 2017 1334 ------- ------- ------- ------- -- Surgery reminde r 13 OCT 2017 NICCI ALVAREZ 10/[address] [place] [address])(Geoffrey razo gy) [address] [place] [address])(Special Skills Officer ecology) TELE CONSULT [id number] Notes Entered by: SUSAN CONTRERAS 15 Oct 2017 1356 ------- ------- ------- ------- -- Scanned carlotta arenas report into KARI STAHL 10/[address] [place] [address])(G ynecodenis gy) [address] [place] [address])(Med ication Refill Clinic) TELE CONSULT [id number] Notes Entered by: SAILAJA DEVLIN 21 Oct 2017 1004 ------- ------- ------- ------- -- Med Renewal / Gil ne / - sgj WICHO RUCKER 10/[address] [place] [address])(Michel bob on Refill Clinic) [address] [place] [address])(Andrew rior Op Med Cln Tm A Ad) TELE CONSULT [id number] Notes Entered by: KARTHIK SANDOVAL 22 Oct 2017 1018 ------- ------- ------- ------- -- Sx: Cough, congest ion - Gil limon - - tsg* URI SARABIA Delgado 10/22 Other Not Elsewhere Classified [address] [place] [address])(W arrior Op Med Cln Tm A Ad) [address] [place] [address])(Special Skills Officer ecology) OUTPATIENT [id number] post op - [phone] AKRI VANEGAS 10/26 Released w/o Limitations [address] [place] [address])(G ynecolo gy) [address] [place] [address])(War rior Op Med Cln Tm A Ad) TELE CONSULT [id number] Notes Entered by: JOSE BURRIS 01 Nov 2017 1036 ------- ------- ------- ------- -- Med refill / WICHO Molina 11/[address] [place] [address])(W arrior Op Med Cln Tm A Ad) [address] [place] [address])(War rior Op Med Cln Tm A Ad) OUTPATIENT [id number] Feels tired/r un down/we ight gain/giraldo ir/skin very dry [id number] TENZIN HOPE 12/13 Released w/o Limitations [address] [place] [address])(W arrior Op Med Cln Tm A Ad) [address] [place] [address])(War rior Op Med Cln Tm A Ad) TELE CONSULT [id number] Notes Entered by: ELISABET JOHNSON 14 Dec 2017 1050 ------- ------- ------- ------- -- Lab results DARIEN, RAVIN J 12/[address] [place] [address])(W arrior Op Med Cln Tm A Ad) [address] [place] [address])(War rior Op Med Cln Tm A Ad) OUTPATIENT [id number] F/U for low Vitamin D - still feeling tired - decline d Virtual [id number] ANTONIO DIGGS 03/02 Released w/o Limitations [address] [place] [address] Group [facility])(W arrior Op Med Cln Tm A Ad) [address] [place] [address])(Special Skills Officer ecology) TELE CONSULT [id number] Notes Entered by: SUSAN CONTRERAS 05 Apr 2018 0733 ------- ------- ------- ------- -- Possibl e yeast infecti on and herpes outbrea k NICCI ALVAREZ 04/05 Referred for Appointment [address] [place] [address])(G ynecolo gy) [address] [place] [address])(War rior Op Med Cln Tm A Ad) TELE CONSULT [id number] Notes Entered by: LUCY PATEL 10 May 2018 1432 ------- ------- ------- ------- -- Med Renewal Request / [place] / - WICHO Wiley 05/10 Referred for Appointment [address] [place] [address])(W arrior Op Med Cln Tm A Ad) [address] [place] [address])(Special Skills Officer ecology) OUTPATIENT [id number] dISCUSS treatme nt options for herpes outbrea ks [id number] (pt request ) KARI VANEGAS 05/24 Released w/o Limitations [address] [place] [address])(G ybraxtoncodenis gy) [address] [place] [address])(War rior Op Med Cln Tm A Ad) TELE CONSULT [id number] Notes Entered by: JUAN ALBERTO GRIMM 15 Aug 2018 1042 ------- ------- ------- ------- -- 2nd opinion Referra l Request /Yessy heredia/ GEOVANI JARVIS 08/15 Other Not Elsewhere Classified [address] [place] [address])(W arrior Op Med Cln Tm A Ad) [address] [place] [address])(Special Skills Officer ecology) OUTPATIENT [id number] 0 3 month f/u medicat ion - [phone] KARI VANEGAS 09/12 Released w/o Limitations [address] [place] [address])(G ynecolo gy) [address] [place] [address])(War rior Op Med Cln Tm A Ad) OUTPATIENT [id number] 1 Sinus Drainag e and Pressur e, [phone] 2 ANTONIO DIGGS 11/16 Released w/o Limitations [address] [place] [address])(W arrior Op Med Cln Tm A Ad) [address] [place] [address])(War rior Op Med Cln Tm A Ad) TELE CONSULT [id number] Notes Entered by: PRAKASH BRICENO 16 Nov 2018 1111 ------- ------- ------- ------- -- Pt needs written prescri ption for ama, pharmac y told her they are out of it MAUDE MORA 11/16 Medication Refill Forwarded [address] [place] [address])(W arrior Op Med Cln Tm A Ad) [...] NUTRITION THERAPY; INITIAL ASSESSMENT AND INTERVENTION, INDIVIDUAL, [id number]-VL-[id number] WITH THE PATIENT, EACH 15 MINUTES 11/02 [...] 24 HR/SOON APT;5-10 MIN MED DIS 10/27 [facility] SUBSEQ CARE VISIT () [EXCLS:PATIENTS WHO ARE SEEN FOR A CONDITION UNREL TO / CARE (EG,AN UP RESPIR INFECT;PATIENTS SEEN FOR CONSULTATION ONLY,NOT FOR CONT CARE)] 10/26 [facility] SUBSEQ CARE VISIT () [EXCLS:PATIENTS WHO ARE SEEN FOR A CONDITION UNREL TO / CARE (EG,AN UP RESPIR INFECT;PATIENTS SEEN FOR CONSULTATION ONLY,NOT FOR CONT CARE)] 10/19 DoD PSYCHOTHERAPY, 60 MINUTES WITH PATIENT 10/17 [facility] SUBSEQ CARE VISIT () [EXCLS:PATIENTS WHO ARE SEEN FOR A CONDITION UNREL TO / CARE (EG,AN UP RESPIR INFECT;PATIENTS SEEN FOR CONSULTATION ONLY,NOT FOR CONT CARE)] 10/13 [facility] SUBSEQ CARE VISIT () [EXCLS:PATIENTS WHO ARE SEEN FOR A CONDITION UNREL TO / CARE (EG,AN UP RESPIR INFECT;PATIENTS SEEN FOR CONSULTATION ONLY,NOT FOR CONT CARE)] 10/05 DoD FAMILY PSYCHOTHERAPY (CONJOINT PSYCHOTHERAPY) (WITH PATIENT PRESENT), 50 MINUTES 10/04 DoD PSYCHOTHERAPY, 60 MINUTES WITH PATIENT 09/28 [facility] SUBSEQ CARE VISIT () [EXCLS:PATIENTS WHO ARE SEEN FOR A CONDITION UNREL TO / CARE (EG,AN UP RESPIR INFECT;PATIENTS SEEN FOR CONSULTATION ONLY,NOT FOR CONT CARE)] 09/25 [facility] SUBSEQ CARE VISIT () [EXCLS:PATIENTS WHO ARE SEEN FOR A CONDITION UNREL TO / CARE (EG,AN UP RESPIR INFECT;PATIENTS SEEN FOR CONSULTATION ONLY,NOT FOR CONT CARE)] 09/21 DoD PSYCHOTHERAPY, 60 MINUTES WITH PATIENT 09/21 [facility] SUBSEQ CARE VISIT () [EXCLS:PATIENTS WHO ARE SEEN FOR A CONDITION UNREL TO / CARE (EG,AN UP RESPIR INFECT;PATIENTS SEEN FOR CONSULTATION ONLY,NOT FOR CONT CARE)] 09/15 [facility] PSYCHIATRIC DIAGNOSTIC EVALUATION 09/14 DoD SUBSEQ CARE VISIT () [EXCLS:PATIENTS WHO ARE SEEN FOR A CONDITION UNREL TO / CARE (EG,AN UP RESPIR INFECT;PATIENTS SEEN FOR CONSULTATION ONLY,NOT FOR CONT CARE)] 09/08 DoD SUBSEQ CARE VISIT () [EXCLS:PATIENTS WHO [...] OUTPATIENT FACILITY, APPROXIMATELY 20 TO 30 MINUTES [id number] WITH THE PATIENT 01/31 DoD INDIVIDUAL PSYCHOTHERAPY, INSIGHT ORIENTED, BEHAVIOR MODIFYING AND/OR SUPPORTIVE, IN AN OFFICE OR OUTPATIENT FACILITY, APPROXIMATELY 45 TO 50 MINUTES [id number] WITH THE PATIENT 01/10 [facility] PSYCHIATRIC DIAGNOSTIC INTERVIEW EXAMINATION 01/06 [facility] URINE TEST, BY VISUAL COLOR COMPARISON [...] 24 HR/SOON APT;5-10 MIN MED DIS 08/14 [facility] SCREENING PAPANICOLAOU SMEAR; OBTAINING, PREPARING AND CONVEYANCE OF CERVICAL OR VAGINAL SMEAR TO LABORATORY 08/05 [facility] SUBSEQ CARE VISIT () [EXCLS:PATIENTS WHO ARE SEEN FOR A CONDITION UNREL TO / CARE (EG,AN UP RESPIR INFECT;PATIENTS SEEN FOR CONSULTATION ONLY,NOT FOR CONT CARE)] 06/18 [facility] SUBSEQ CARE VISIT () [EXCLS:PATIENTS WHO ARE SEEN FOR A CONDITION UNREL TO / CARE (EG,AN UP RESPIR INFECT;PATIENTS SEEN FOR CONSULTATION ONLY,NOT FOR CONT CARE)] 06/11 [facility] SUBSEQ CARE VISIT () [EXCLS:PATIENTS WHO ARE SEEN FOR A CONDITION UNREL TO / CARE (EG,AN UP RESPIR INFECT;PATIENTS SEEN FOR CONSULTATION ONLY,NOT FOR CONT CARE)] 06/03 [facility] INFLUENZA VIRUS VACCINE, TRIVALENT (IIV3), SPLIT VIRUS, 0.5 ML DOSAGE, FOR INTRAMUSCULAR USE 05/16 [facility] SUBSEQ CARE VISIT () [EXCLS:PATIENTS WHO ARE SEEN FOR A CONDITION UNREL TO / CARE (EG,AN UP RESPIR INFECT;PATIENTS SEEN FOR CONSULTATION ONLY,NOT FOR CONT CARE)] 05/16 [facility] SUBSEQ CARE VISIT () [EXCLS:PATIENTS WHO ARE SEEN FOR A CONDITION UNREL TO / CARE (EG,AN UP RESPIR INFECT;PATIENTS SEEN FOR CONSULTATION ONLY,NOT FOR CONT CARE)] 04/16 [facility] SUBSEQ CARE VISIT () [EXCLS:PATIENTS WHO ARE SEEN FOR A CONDITION UNREL TO / CARE (EG,AN UP RESPIR INFECT;PATIENTS SEEN FOR CONSULTATION ONLY,NOT FOR CONT CARE)] 03/25 [facility] SUBSEQ CARE VISIT () [EXCLS:PATIENTS WHO ARE SEEN FOR A CONDITION UNREL TO / CARE (EG,AN UP RESPIR INFECT;PATIENTS SEEN FOR CONSULTATION ONLY,NOT FOR CONT CARE)] 02/20 [facility] SUBSEQ CARE VISIT () [EXCLS:PATIENTS WHO ARE SEEN FOR A CONDITION UNREL TO / CARE (EG,AN UP RESPIR INFECT;PATIENTS SEEN FOR CONSULTATION ONLY,NOT FOR CONT CARE)] 01/23 [facility] INDIVIDUAL PSYCHOTHERAPY, INSIGHT ORIENTED, BEHAVIOR MODIFYING AND/OR SUPPORTIVE, IN AN OFFICE OR OUTPATIENT FACILITY, APPROXIMATELY 20 TO 30 MINUTES [id number] WITH THE PATIENT 01/02 [facility] SUBSEQ CARE VISIT () [EXCLS:PATIENTS WHO ARE SEEN FOR A CONDITION UNREL TO / CARE (EG,AN UP RESPIR INFECT;PATIENTS SEEN FOR CONSULTATION ONLY,NOT FOR CONT CARE)] 01/02 [facility] URINE TEST, BY VISUAL COLOR COMPARISON METHODS 11/02 [facility] TOBACCO USE CESSATION INTERVENTION, COUNSELING (COPD, CAP, CAD, ASTHMA) (DM) (PV) 10/03 [facility] SCREENING PAPANICOLAOU SMEAR; OBTAINING, PREPARING AND CONVEYANCE OF CERVICAL OR VAGINAL SMEAR TO LABORATORY 09/18 [facility] HEPATITIS B VACCINE (HEPB), ADULT DOSAGE, 3 DOSE SCHEDULE, FOR INTRAMUSCULAR USE 07/05 [facility] HEPATITIS B VACCINE (HEPB), ADULT DOSAGE, 3 DOSE SCHEDULE, FOR INTRAMUSCULAR USE 04/04 [facility] Non-Physician Phone Call To Patient/Provider Brief (5-10min) Non-Physician Phone Call To Patient/Provider Brief (5-10min) [id number] 11/16 MAUDE MORA [facility] Non-Physician Phone Call To Patient/Provider Brief (5-10min) Non-Physician Phone Call To Patient/Provider Brief (5-10min) 52814 08/15 GEOVANI JARVIS [facility] Disease management program, follow-up/christofer e ment 05/17 WICHO RUCKER DoD Non-Physician Phone Call To Patient/Provider Brief (5-10min) Non-Physician Phone Call To Patient/Provider Brief (5-10min) 14058 04/05 NICCI ALVAREZ [facility] Disease management program, follow-up/christofer e ment 11/01 TENZIN HOPE DoD Disease management program, follow-up/christofer e ment 10/22 CANDI ARNOLD [facility] Non-Physician Phone Call To Patient/Provider Brief (5-10min) Non-Physician Phone Call To Patient/Provider Brief (5-10min) [id number] 10/22 URI SARABIA [facility] Non-Physician Phone Call To Patient/Provider Brief (5-10min) Non-Physician Phone Call To Patient/Provider Brief (5-10min) 06116 10/12 NICCI ALVAREZTEENA [facility] Non-Physician Phone Call To Patient/Provider Brief (5-10min) Non-Physician Phone Call To Patient/Provider Brief (5-10min) 56912 09/13 RAVIN LEDEZMA [facility] Non-Physician Phone Call To Patient/Provider Brief (5-10min) Non-Physician Phone Call To Patient/Provider Brief (5-10min) 83756 09/10 RAVIN LEDEZMA [facility] Vaginal Wet [place] Vaginal Wet [place] 31336 07/20 AMAYA BAEZ [facility] Non-Physician Phone Call To Patient/Provider Brief (5-10min) Non-Physician Phone Call To Patient/Provider Brief (5-10min) 15356 06/29 RAVIN LEDEZMA [facility] Disease management program, follow-up/christofer e ment 04/16 PLACIDO MACHUCA [facility] Non-Physician Phone Call To Patient/Provider Brief (5-10min) Non-Physician Phone Call To Patient/Provider Brief (5-10min) 13034 02/25 RAVIN LEDEZMA [facility] Psychiatric Evaluation Review of Records and Reports Psychiatric Evaluation Review of Records and Reports 42762 09/22 ZACHARY AVERY [facility] Gynecologic Services Intrauterine Device (IUD) Insertion Gynecologic Services Intrauterine Device (IUD) Insertion [id number] 04/21 KARI VANEGAS [facility] Hysterosalpingograp hy With Catheter Contrast Injection Hysterosalpingogra phy With Catheter Contrast Injection 63068 04/14 KARI VANEGAS Procedure: A final timeout [...] was informed of these results. No complications. [facility] Screening papanicolaou smear; obtaining, preparing and conveyance of cervical or vaginal smear to laboratory 03/04 AMAYA BAEZ [facility] Vaginal Wet [place] Vaginal Wet [place] 15017 03/04 AMAYA BAEZ [facility] Hysterosalpingograp hy With Catheter Contrast Injection Hysterosalpingogra phy With Catheter Contrast Injection 14234 01/06 GIANNA STRAUSS [facility] Psychoactive Medication Management Psychoactive Medication Management 26381 11/28 ZACHARY AVERY [facility] Non-Physician Phone Call To Patient/Provider Brief (5-10min) Non-Physician Phone Call To Patient/Provider Brief (5-10min) 89449 10/14 DIMPLE JOHNSON [facility] Non-Physician Phone Call To Patient/Provider Brief (5-10min) Non-Physician Phone Call To Patient/Provider Brief (5-10min) 86952 10/10 DIMPLE JOHNSON [facility] Conscious Sedation By Performing Service 5 Yrs Or Older Conscious Sedation By Dr Performing Service 5 Yrs Or Older 00013 10/09 PRIYA CHOI [facility] Non-Physician Phone Call To Patient/Provider Brief (5-10min) Non-Physician Phone Call To Patient/Provider Brief (5-10min) 57334 10/03 FAMILIA THOMPSON [facility] Non-Physician Phone Call To Patient/Provider Brief (5-10min) Non-Physician Phone Call To Patient/Provider Brief (5-10min) 35606 10/01 JOE ASH [facility] Non-Physician Phone Call To Patient/Provider Brief (5-10min) Non-Physician Phone Call To Patient/Provider Brief (5-10min) 08372 08/26 JOE ASH [facility] Non-Physician Phone Call To Patient/Provider Brief (5-10min) Non-Physician Phone Call To Patient/Provider Brief (5-10min) 76742 08/22 MANN COLON [facility] Psych Ther Indiv Interact Appr 20-30 Min W/ Med Eval Manage 06/20 ZACHARY AVERY [facility] Psych Ther Indiv Interact Appr 45-50 Min W/ Med Eval Manage 05/17 ZACHARY AVERY [facility] Non-Physician Phone Call To Patient/Provider Brief (5-10min) Non-Physician Phone Call To Patient/Provider Brief (5-10min) 96414 04/26 MANN COLON [facility] Psych Ther Indiv Interact Appr 45-50 Min W/ Med Eval Manage 04/16 ZACHARY AVERY Vaginal Wet [place] Vaginal Wet [place] 81527 04/11 AMAYA BAEZ [facility] Non-Physician Phone Call To Patient/Provider Brief (5-10min) Non-Physician Phone Call To Patient/Provider Brief (5-10min) 46725 04/10 ANANDA WILLAMS [facility] Psych Ther Indiv Interact Appr 45-50 Min W/ Med Eval Manage 02/18 ZACHARY AVERY [facility] Psych Ther Indiv Interact Appr 45-50 Min W/ Med Eval Manage 01/01 ZACHARY AVERY [facility] Psych Ther Indiv Interact Appr 45-50 Min W/ Med Eval Manage 11/19 ZACHARY AVERY [facility] Psych Ther Indiv Interact Appr 45-50 Min W/ Med Eval Manage 10/23 ZACHARY AVERY [facility] Non-Physician Phone Call To Patient/Provider Brief (5-10min) Non-Physician Phone Call To Patient/Provider Brief (5-10min) 27256 09/21 MANN COLON [facility] Psych Ther Indiv Interact Appr 45-50 Min W/ Med Eval Manage 09/06 ZACHARY AVERY [facility] Psych Ther Indiv Interact Appr 45-50 Min W/ Med Eval Manage 07/24 ZACHARY AVERY [facility] OB Services Antepartum Care Only Subsequent Single Visit OB Services Antepartum Care Only Subsequent Single Visit 0502F 06/30 CLEMENTINA DAVILA [facility] Psychiatric Therapy Individual Approximately 45-50 Minutes 06/21 CATHY TOMAS [facility] Test Test 16790 06/18 LUISANA DEVLIN [facility] Gynecologic Services Intrauterine Device (IUD) Insertion Gynecologic Services Intrauterine Device (IUD) Insertion [id number] 06/18 LUISANA DEVLIN [facility] Psychiatric Therapy Individual Approximately 45-50 Minutes 06/04 CATHY TOMAS Vaginal Wet [place] Vaginal Wet [place] 42265 06/04 LUISANA DEVLIN [facility] Social Work Individual Outpatient Counseling 45-50 Minutes 05/17 CATHY TOMAS Psychiatric Therapy Individual Approximately 45-50 Minutes 04/25 CATHY TOMAS Gynecologic Services Diaphragm Fitting With Instructions Gynecologic Services Diaphragm Fitting With Instructions 93680 02/20 ALYSSA COLÓN [facility] Social Work Individual Outpatient Counseling 45-50 Minutes 01/30 CATHY TOMAS OB Services Antepartum Care Only Subsequent Single Visit OB Services Antepartum Care Only Subsequent Single Visit 0502F 11/27 CLEMENTINA DAVILA [facility] OB Services Antepartum Care Only Subsequent Single Visit OB Services Antepartum Care Only Subsequent Single Visit 0502F 11/14 GUERRERO DWYER [facility] Non-Physician Phone Call To Patient/Provider Brief (5-10min) Non-Physician Phone Call To Patient/Provider Brief (5-10min) 95101 11/08 GAYE DECKER [facility] Medical Nutrition Therapy Initial A e ment, Intervention Medical Nutrition Therapy Initial Assessment, Intervention 63711 11/03 REYES LOPEZ [facility] Non-Physician Phone Call To Patient/Provider Brief (5-10min) Non-Physician Phone Call To Patient/Provider Brief (5-10min) 55140 10/30 GAYE DECKER [facility] OB Services Antepartum Care Only Subsequent Single Visit OB Services Antepartum Care Only Subsequent Single Visit 0502F 10/19 GUERRERO DWYER [facility] OB Services Antepartum Care Only Subsequent Single Visit OB Services Antepartum Care Only Subsequent Single Visit 0502F 10/13 GUERRERO DWYER [facility] OB Services Antepartum Care Only Subsequent Single Visit OB Services Antepartum Care Only Subsequent Single Visit 0502F 10/06 GUERRERO DWYER [facility] Psychiatric Therapy Family (Conjoint) 10/04 CATHY TOMAS OB Services Antepartum Care Only Subsequent Single Visit OB Services Antepartum Care Only Subsequent Single Visit 0502F 09/25 ERMIS, GUERRERO B [facility] OB Services Antepartum Care Only Subsequent Single Visit OB Services Antepartum Care Only Subsequent Single Visit 0502F 09/21 HATHELMA A [facility] OB Services Antepartum Care Only Subsequent Single Visit OB Services Antepartum Care Only Subsequent Single Visit 0502F 09/15 ERMGUERRERO SAN B [facility] Psychiatric Evaluation Psychiatric Evaluation 07926 09/15 CATHY TOMAS [facility] OB Services Antepartum Care Only Subsequent Single Visit OB Services Antepartum Care Only Subsequent Single Visit 0502F 09/08 PRIYA CHOI [facility] OB Services Antepartum Care Only Subsequent Single Visit OB Services Antepartum Care Only Subsequent Single Visit 0502F 08/28 ERMGUERRERO SAN B DoD OB Services Antepartum Care Only Subsequent Single Visit OB Services Antepartum Care Only Subsequent Single Visit 0502F 08/17 ERMZACK SANILY B DoD OB Services Antepartum Care Only Subsequent Single Visit OB Services Antepartum Care Only Subsequent Single Visit 0502F 07/18 ERMGUERRERO SAN B DoD OB Services Antepartum Care Only Subsequent Single Visit OB Services Antepartum Care Only Subsequent Single Visit 0502F 07/06 VIOLET WALKER [facility] Ultrasound Obstetric Limited Evaluation Ultrasound Obstetric Limited Evaluation 26486 05/25 ERMGUERRERO SAN B [facility] OB Services Antepartum Care Only Subsequent Single Visit OB Services Antepartum Care Only Subsequent Single Visit 0502F 05/25 GUERRERO DWYER B [facility] Ultrasound Trans[place] [address] 05/05 CLEMENTINA DAVILA [facility] OB Services Antepartum Care Only Subsequent Single Visit OB Services Antepartum Care Only Subsequent Single Visit 0502F 05/05 CLEMENTINA DAVILA [facility] Ultrasound Trans[place] [address] 05/02 SLALEATHA DrakeCY K [facility] OB Services Antepartum Care Only First Visit, With Report OB Services Antepartum Care Only First Visit, With Report 0500F 05/02 CLEMENTINA DAVILA [facility] Non-Physician Phone Call To Patient/Provider Brief (5-10min) Non-Physician Phone Call To Patient/Provider Brief (5-10min) 47070 04/28 EB DOMINGO [facility] Non-Physician Phone Call To Patient/Provider Brief (5-10min) Non-Physician Phone Call To Patient/Provider Brief (5-10min) 12482 03/09 JODIE RODRIGUEZ [facility] Non-Physician Phone Call To Patient/Provider Brief (5-10min) Non-Physician Phone Call To Patient/Provider Brief (5-10min) 51605 03/03 JODIE RODRIGUEZ [facility] Electrocardiogram Electrocardiogram 18819 02/21 RAHUL SCHMITT [facility] Psychiatric Evaluation Review of Records and Reports Psychiatric Evaluation Review of Records and Reports 24218 11/14 WICHO SOMMERS [facility] [facility] Non-Physician Phone Call To Pt/Provider Intermed (11-20 min) Non-Physician Phone Call To Pt/Provider Intermed (11-20 min) [id number] 06/22 JE WHITFIELD [facility] Psychiatric Therapy Individual Approximately 20-30 Minutes Psychiatric Therapy Individual Approximately 20-30 Minutes [id number] 01/31 WICHO SOMMERS [facility] Social Work Individual Outpatient Counseling 45-50 Minutes Social Work Individual Outpatient Counseling 45-50 Minutes [id number] 01/10 SALOMÓN OLIVAS [facility] Psychiatric Evaluation Comprehensive Examination Psychiatric Evaluation Comprehensive Examination [id number] 01/06 KEVIN THURMAN [facility] Test Test 04641 08/05 KELSIE INIGUEZ [facility] Rapid Antigen Identification Streptococcus Group A Beta Hemolytic Rapid Antigen Identification Streptococcus Group A Beta Hemolytic [id number] 08/05 MONI BOSS [facility] Non-Physician Phone Call To Patient/Provider Brief (5-10min) Non-Physician Phone Call To Patient/Provider Brief (5-10min) [id number] 03/31 GENA FRANKS [facility] Gynecologic Services Intrauterine Device (IUD) Removal Gynecologic Services Intrauterine Device (IUD) Removal 70186 01/22 BRIE CRUZ [facility] Determination Of Refractive State Determination Of Refractive State 96574 12/31 LUZ MUHAMMAD [facility] Ophthalmological New Patient Start Comprehensive Care Ophthalmological New Patient Start Comprehensive Care 18628 12/31 LUZ MUHAMMAD [facility] Non-Physician Phone Call To Patient/Provider Brief (5-10min) Non-Physician Phone Call To Patient/Provider Brief (5-10min) 37912 12/19 VASU CARPENTER [facility] Influenza Virus Vaccine Live Intranasal 08/29 LEXY BRICENO DoD Immunization Administration One Vaccine Immunization Administration One Vaccine 25166 08/29 LEXY BRICENO [facility] Gynecologic Services Intrauterine Device (IUD) Insertion Gynecologic Services Intrauterine Device (IUD) Insertion 80132 08/20 BRIE CRUZ [facility] Non-Physician Phone Call To Patient/Provider Brief (5-10min) Non-Physician Phone Call To Patient/Provider Brief (5-10min) 48966 08/14 ALDO DAY [facility] Obstetrical Services Care Visit Obstetrical Services Care Visit 0503F 08/06 BRIE CRUZ [facility] OB Services Antepartum Care Only Subsequent Single Visit OB Services Antepartum Care Only Subsequent Single Visit 0502F 06/18 JE ARIZA [facility] Vaginal FEDERICO Prep Vaginal FEDERICO Prep 14957 06/11 BRIE CRUZ [facility] Vaginal Wet [place] Vaginal Wet [place] 18570 06/11 BRIE CRUZ [facility] OB Services Antepartum Care Only Subsequent Single Visit OB Services Antepartum Care Only Subsequent Single Visit 0502F 06/11 BRIE CRUZ [facility] OB Services Antepartum Care Only Subsequent Single Visit OB Services Antepartum Care Only Subsequent Single Visit 0502F 06/03 JE ARIZA [facility] Immunization Administration One Vaccine Immunization Administration One Vaccine 19348 05/16 AL TALBOT [facility] Influenza Split Virus Vaccine Age 3+ Years Intramuscular 05/16 AL TALBOT [facility] OB Services Antepartum Care Only Subsequent Single Visit OB Services Antepartum Care Only Subsequent Single Visit 0502F 04/16 CESARIO JEFFERY [facility] OB Services Antepartum Care Only Subsequent Single Visit OB Services Antepartum Care Only Subsequent Single Visit 0502F 03/25 MARGARETTE TABARES [facility] OB Services Antepartum Care Only Subsequent Single Visit OB Services Antepartum Care Only Subsequent Single Visit 0502F 02/20 ZACK TOWNSEND [facility] OB Services Antepartum Care Only Subsequent Single Visit OB Services Antepartum Care Only Subsequent Single Visit 0502F 01/23 JE LUNA [facility] Psychiatric Therapy Individual Approximately 20-30 Minutes Psychiatric Therapy Individual Approximately 20-30 Minutes [id number] 01/02 AYRITZA ORTIZ [facility] OB Services Antepartum Care Only Subsequent Single Visit OB Services Antepartum Care Only Subsequent Single Visit 0502F 01/02 JE LUNA [facility] Intervention And Counseling On Ce ation Of Tobacco Use Intervention And Counseling On Cessation Of Tobacco Use 4000F 10/03 MARGARETTE TABARES [facility] Screening papanicolaou smear; obtaining, preparing and conveyance of cervical or vaginal smear to laboratory 09/18 WANDA FELICIANO [facility] Hepatitis B Vaccine (Active); 20 Years and Above 07/05 ADELINE GU [facility] Immunization Administration One Vaccine Immunization Administration One Vaccine 84383 07/05 ADELINE GU [facility] Hepatitis B Vaccine (Active); 20 Years and Above 04/04 ILA GARCIA [facility] Immunization Administration One Vaccine Immunization Administration One Vaccine 91364 04/04 ILA GARCAI [facility] Social History Combined list of available smoking, tobacco, and other social history from [facility] Defense and [facility] Affairs facilities. Social History Type Response Date Comment Sourc e Sexual Orientation Ambula tory Pharmacy Gender identity Ambulator y Pharmacy Sex Representation Female (finding) Unknown Organization This section is an empty soc ial history section. [facility] Assessment and Plan Combined list of future care activities from Department of Defense and Veterans Affairs facilities (e.g., assessment and plan notes, appointments, orders, and referrals). Additional future care activities may be listed in the Plan of Care section. Result Assessment and Plan Date Source Assessment and Plan No data available for this section 02/07/2025 Ambulatory Pharmacy Functional Status Combined list of recent functional and cognitive assessments recorded at [facility] ([facility] Functional [place] Measurement (FIM) Scale: 1 = Total Assistance (Subject = 0% +), 2 = Maximal Assistance (Subject = 25% +), 3 = Moderate Assistance (Subject = 50% +), 4 = Minimal Assistance (Subject = 75% +), 5 = Supervision, 6 = Modified K[place]ett (Device), 7 = Complete [place] (Timely, Safely). Assessment Date/Time Source Assessment Type Assessment Skill Assessment Score Assessment Details No data available for this section
[2025-02-07 20:23] LABS: Hematocrit 45.3 % (37.0-47.0); Hemoglobin 14.8 g/dL (12.0-15.0); Immature Granulocyte Percent A 0.5 % (0-0.5); Lymphocytes Absolute Auto 3.14 K/mm3 (0.9-3.2); Mean Corpuscular HGB Conc 32.7 g/dl (32-36); Mean Corpuscular Hemoglobin 29.4 pg (26-34); Mean Corpuscular Volume 90.1 fl (80-100); Nucleated Red Blood Cells Absolute Auto 0.000 K/mm3 (0.0-0.012); Nucleated Red Blood Cells Perc 0.0 % (0.0-0.2); Platelet Count Result 414 k/mm3 (150-375); Red Blood Count 5.03 M/mm3 (4.2-5.4); White Blood Count 10.4 K/mm3 (4.5-10.0)
[2025-02-07 20:28] LABS: Add Urine Microscopic? YES; Appearance Urine Clear (Clear); Glucose Urine UA Negative (Negative); Leukocyte Esterase Ur 1+ LEU/UL (Negative); Nitrate Urine Negative (Negative); Non Pathogenic Casts 0-2; Specific Grav Ur 1.005 (1.001-1.035)
--- NOTE | 2025-02-07 20:30 | PC.NURSE ---
Pt presents to ED c/o vaginal bloody/puss discharge 2 weeks post hysterectomy, abdominal pain 5/10 cramping radiating to back, urinary urgency and burning, onset 3 days.
[2025-02-07 20:31] LABS: Alanine Aminotransferase 33 U/L (6-35); Albumin Level 4.7 g/dL (3.5-5.1); Alkaline Phosphatase 80 U/L (38-126); Anion Gap 8 mmol/L (4-12); Aspartate Amino Transferase 31 U/L (14-36); Bilirubin,Total 0.2 mg/dL (0.2-1.3); Blood Urea Nitrogen 7 mg/dL (7-17); Calcium 9.6 mg/dL (8.4-10.2); Carbon Dioxide 28 mmol/L (22-30); Chloride 104 mmol/L (98-107); Estimated CRCL calculation 69 ml/min; Estimated Glomerular Filt Rate > 60; Glucose 97 mg/dL (65-110); Lipase 35 U/L (23-300); Magnesium 2.0 mg/dL (1.6-2.3); Potassium 3.9 mmol/L (3.4-5.0); Sodium 140 mmol/L (137-145); Total Protein 8.1 g/dL (6.3-8.2)
[2025-02-07 20:33] LABS: SPREG INTERNAL CONTROL Positive; Serum Qual hCG Negative
--- OUTSIDE RECORDS SUMMARY | 2025-02-07 20:40 | XMS_ITS | Encounter Summary ---
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 Legal Sex Female 8:26 PM CDT Gender Identity Not on file Sexual Orientation Not on file documented as of this encounter Plan of Treatment Upcoming Encounters Date Type Department Care Team (Late st Contact Info) Description 03/08/2025 9:00 AM CDT Allied Health/Nurse Visit [facility] Family Medicine - [place] [address] [place] [address] Sandie Arriola MD [address] [place] [address] 03/15/2025 9:50 AM CDT Office Visit [facility] Family [facility] - [place] [address] [place] [address] Sandie Arriola MD [address] [place], [place] [id number] documented as of this encounter Procedures Procedure [...] on filedocumented in this encounter Care Teams Field Insurance Sales Manager Relationship Specialty Start Date End Date Noel Cerna MD [address] [place] [address] PCP - General FAMILY PRACTICE 06/04/20 03/05/24 Sandie Arriola MD [address] [place] [id number] PCP - General FAMILY PRACTICE 03/06/24 Kesha Quinones MD [address] [place] [address] Referring Physician OBJAMESN 10/08/17 documented as of this encounter
--- OUTSIDE RECORDS SUMMARY | 2025-02-07 20:40 | XMS_ITS | Clinical Summary ---
Author Organization [facility] Address [facility] [place] [address] Care Team Providers Care Family Services Manager Name Role Phone Kesha Quinones MD Unavailable [phone] Sandie Arriola MD Primary Care Provider + [...] (03/06/2024): Psychiatry is managing her trazodone. 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): Saw neurology and tried [...] Doc Med Group Procedure (SCAN) 11/20/2024 Telephone [facility] Family Medicine [facility] [address] [address] Sandie Arriola MD Referral Request from Last [...] Sex Assigned at Female 08/15/2024 8:20 AM PATHOLOGY TECH Legal Sex Female 8:26 PM CDT Gender Identity Not on file Sexual Orientation Not on file Last Filed Vital Signs Vital Sign Reading Time Taken Comments Blood Pressure 126/75 08/14/2024 1:12 PM PATHOLOGY TECH Pulse 78 08/14/2024 1:12 PM PATHOLOGY TECH Temperature 36.4 C (97.6 F) 08/14/2024 1:12 PM PATHOLOGY TECH Respiratory Rate 17 04/24/2024 10:30 AM CDT Oxygen Saturation 97% 08/14/2024 1:12 PM PATHOLOGY TECH Inhaled Oxygen Concentration - - Weight 65.8 kg (145 lb) 08/14/2024 1:12 PM PATHOLOGY TECH Height 156.2 cm (5' 1.5) 08/14/2024 1:12 PM PATHOLOGY TECH Body Mass Index 26.95 08/14/2024 1:12 PM PATHOLOGY TECH Plan of Treatment Upcoming Encounters Date Type Department Care Team (Late st Contact Info) Description 03/08/2025 9:00 AM CDT Allied Health/Nurse Visit [facility] Family Medicine [facility] [address] [id number] Sandie Arriola MD [address] [facility] [address] [place] [phone] 03/15/2025 9:50 AM CDT Office Visit [facility] Family Medicine - [place] [address] [facility] [address] [place] [address] Sandie Arriola MD [address] [place] [id number] Health Maintenance Due Date Last Done Comments [...] or Tdap) 11/30/2033 12/01/2023, 11/20/2013 PHQ-2 (Physician [place]) Completed 08/03/2024 Meningococcal B Vaccine Aged Out [...] PROCEDURE GENERIC (SCAN ORDER) (12/07/2024) 12/07/2024 [facility] Scanned SCANNING Final Resu lt * COLONOSCOPY GENERIC (SCAN ORDER) (11/22/2020) 11/22/2020 us [facility] Scanned SCANNING Final Resu lt from Last 3 Months or Most Recently Relevant to Health [place] [id number] Care Teams Family Services Manager Relationship Specialty Start Date End Date Sandie Arriola MD [address] [place] [id number] PCP - General FAMILY PRACTICE 03/06/24 Kesha Quinones MD [address] [place] [address] Referring Physician OBJAMESN 10/08/17
--- OUTSIDE RECORDS SUMMARY | 2025-02-07 20:41 | XMS_ITS | Continuity of Care Document ---
Author Name [facility] Organization [facility] Care Team Providers Care Facilities Flight Check Pilot Name Role Phone [facility] Unavailable Unavailable Problems [...] pain in the right hip Inactive Condition [facility] visit for: exam 2nd trimester (at ____weeks) Inactive Condition DoD diarrhea Inactive Condition DoD SECONDARY INSOMNIA Inactive Condition Do D Inquiry And Counseling: Contraceptive Practices Active Condition [facility] ELDERLY MULTIGRAVIDA (35 or older at delivery) Inactive Condition DoD UPPER RESPIRATORY INFECTION Inactive Condition DoD BACKACHE Active Condition DoD COMMON COLD Inactive Condition DoD CONSTIPATION Inactive Condition [facility] visit for: exam high-risk elderly multigravida Inactive Condition DoD constipation Inactive Condition DoD nausea Inactive Condition DoD Urine Test Inactive Condition DoD RHINOSINUSITIS Inactive Condition [facility] Outpatient Physician Consultation Inactive Condition DoD CONDITIONS INFLUENCING HEALTH STATUS Active Condition DoD CERVICALGIA Active Condition [facility] visit for: screening exam for malignant neoplasm cervix Inactive Condition DoD CYSTITIS ACUTE Inactive Condition DoD FEMALE PELVIC PAIN Active Condition DoD ENDOMETRIOSIS Active Condition DoD nonmenstrual bleeding Active Condition DoD Test Inactive Condition DoD ACUTE BRONCHITIS Inactive Condition [facility] visit for: issue repeat prescription [...] NORMAL CHECKUP - THIRD TRIMESTER Inactive Condition [facility] visit for: exam high-risk Inactive Condition DoD lower back pain Inactive Condition DoD ANXIETY DISORDER NOS Inactive Condition DoD Vaccines Prophylactic Need Against Influenza Inactive Condition DoD current smoker Active Condition DoD Oral Glucose Tolerance Test 2-Hour Value Between 140 - 200 Inactive Condition [facility] NORMAL CHECKUP - SECOND TRIMESTER Inactive Condition DoD NORMAL Inactive Condition DoD PSYCHIATRIC DIAGNOSIS OR CONDITION DEFERRED ON AXIS I Inactive Condition DoD DEPRESSION Inactive Condition DoD Inactive Condition DoD HYPEREMESIS GRAVIDARUM Inactive Condition DoD Patient Counseling: Inactive Condition D Supervision Of Normal Inactive Condition [facility] visit for: exam 1st trimester (at ____weeks) Inactive Condition DoD nausea with vomiting Inactive Condition [facility] IRRITABLE BOWEL SYNDROME Active Condition [facility] visit for: administrative purpose Inactive Condition [facility] smoking cigarettes Active Condition [facility] DYSMENORRHEA Active Condition DoD DYSFUNCTIONAL UTERINE BLEEDING Active Condition DoD feared medical condition not demonstrated Inactive Condition [facility] visit for: screening exam malignant neoplasm breast Inactive Condition DoD ROUTINE GYNECOLOGICAL EXAM WITH CERVICAL PAP SMEAR Inactive Condition DoD VAGINAL DISCHARGE Inactive Condition DoD DYSPAREUNIA Active Condition DoD pain during urination (dysuria) Active Condition DoD DERMATOPHYTOSIS TINEA PEDIS Inactive Condition DoD DERMATOPHYTOSIS TINEA MANUUM Active Condition [facility] visit for: issue repeat prescription Inactive Condition [facility] Patient Education - Medication Inactive Condition DoD Need For Vaccination Hepatitis B Inactive Condition DoD anxiety Inactive Condition Pt with anxiety disorder that has failed every SSRI and Wellbutrin and per patient. Pt does not tolerate klonopin. Will give trial of low dose Xanax. Follow up as needed. [facility] NORMAL PRE-EMPLOYMENT SCREENING EXAMINATION Inactive [...] LUPIN PHARMACEU, 8.5 g CANISTER Cancele d [id number] : 2023 0 Pharmac y Data Transac tion Service Facilit y DICYCLOMINE HCL (DICYCLOMIN E HCL), 10MG, CAPSULE, ORAL, TORREZ LABS, 100 ea. BOTTLE Cancele d [id number] : 2023 0 Pharmac y Data Transac tion Service Facilit y DICYCLOMINE HCL (DICYCLOMIN E HCL), 10MG, CAPSULE, ORAL, TORREZ LABS, 100 ea. BOTTLE Active [id number] 2023 240 Pharmac y Data Transac tion Service Facilit y FLUOXETINE HCL (FLUOXETINE HCL), 20MG, CAPSULE, ORAL, PL[employer] INC, 1000 ea. BOTTLE Active [id number] 2023 90 Pharmac y Data Transac tion Service Facilit y PANTOPRAZOL E SODIUM (PANTOPRAZO LE SODIUM), 20 MG, TABLET DR, ORAL, MYLAN, 90 ea. BOTTLE Cancele d [id number] : 2023 0 Pharmac y Data Transac tion Service Facilit y PANTOPRAZOL E SODIUM (PANTOPRAZO LE SODIUM), 20 MG, TABLET DR, ORAL, MYLAN, 90 ea. BOTTLE Active [id number] 2023 30 Pharmac y Data Transac tion Service Facilit y phentermine 15 mg capsule See Instruct ions, # 30 EA, 0 total refill(s ), Hard Stop Complet ed 09/21/2023 3 2023 30.0 Ambulat ory Pharmac y SUMATRIPTAN SUCCINATE (sumatripta n succinate), 100 MG, TABLET, ORAL, 'S LAB, 27 ea. BLIST PACK Active [id number] 2023 9 Pharmac y Data Transac tion Service Facilit y topiramate [Exelan] 50 mg tablet See Instruct ions, # 90 EA, 0 total refill(s ), Hard Stop Complet ed 03/24/2024 3 2023 90.0 Ambulat ory Pharmac y TRAZODONE HCL (trazodone HCl), 50 MG, TABLET, ORAL, AUROBINDO PHARM, 100 ea. BOTTLE Cancele d [id number] : 2023 0 Pharmac y Data Transac tion Service Facilit y TRAZODONE HCL (trazodone HCl), 50 MG, TABLET, ORAL, AUROBINDO PHARM, 100 ea. BOTTLE Cancele d [id number] : 2023 0 Pharmac y Data Transac [...] } Drug allergy (disorder) Rash active [address] [place] [address]) OTHER {Cla } Propensity to adverse reactions to drug Rash Active 3 LATEX Unknown Organiza tion PHENERGAN (PROMETHAZIN E HCL) Drug allergy (disorder) Unknown active [address] [place] [address]) promethazine Propensity to adverse reactions to drug Unknown Active 4 Unknown Organiza tion PROZAC (FLUOXETINE HCL) Drug allergy (disorder) Diarrhea active [address] [place] [address]) REGLAN (METOCLOPRAM JENNY HCL) Drug allergy (disorder) Depression active [address] [place] [address]) sertraline Propensity to adverse reactions to drug Depression Active 4 Unknown Organiza tion ZOLOFT (SERTRALINE HCL) Drug allergy (disorder) Depression active [address] [place] [address]) Immunizations Combined list of available immunizations from the Department of Defense and Veterans Affairs facilities. Immunization Series Date Given Administered By Site Reaction Lot Number CVX Code Drug Laser Engraver Status Comments Source COVID-19, mRNA, LNP-S, PF, 100 mcg or 50 mcg dose 2021 [employer] (MOD) Not Given COVID-19, mRNA, LNP-S, PF, 100 mcg or 50 mcg dose DoD influenza, injectable, quadrivalent- pf 2017 zzLef t Arm [id number] 150 Seqirus complet ed influenza , injectabl e, quadrival ent-pf 05/11/18 Given Ambulat ory Pharmac y Influenza, injectable, quadrivalent, preservative free 1 2017 Unknown, Provider [id number] 150 [employer] (SEQ) complet ed Influenza , injectabl e, quadrival ent, preservat rachel free DoD influenza, seasonal, injectable-pf 2015 zzLef t Arm [id number] 140 Se[employer]irus complet ed influenza , seasonal, injectabl e-pf 07/15/16 Given Ambulat ory Pharmac y Influenza, seasonal, injectable, preservative free 1 2015 Unknown, Provider [id number] 140 [employer] (SEQ) complet ed Influenza , [...] DoD tetanus, diphtheria, acellular pertu is [id number] 115 [employer]Smith[employer] ne complet ed tetanus, diphtheri a, acellular pertussis 11/20/13 Given Ambulat ory Pharmac y tetanus toxoid, reduced diphtheria toxoid, and acellular pertu is vaccine, adsorbed 1 2013 Unknown, Provider [id number] 115 [employer] (SKB) complet ed tetanus toxoid, reduced diphtheri a toxoid, and acellular pertussis vaccine, adsorbed DoD influenza, seasonal, injectable-pf 2013 zzLef t Arm [id number] 140 sanofi pasteur complet ed influenza , seasonal, injectabl e-pf 08/28/13 Given Ambulat ory Pharmac y Influenza, seasonal, injectable, preservative free 5 2013 Unknown, Provider [id number] 140 Sanofi Pasteur ([facility]) complet ed Influenza , seasonal, injectabl e, preservat rachel free DoD influenza, seasonal, injectable-pf 2011 [facility] Arm [id number] 140 sanofi pasteur complet ed influenza , seasonal, injectabl e-pf 06/10/12 Given Ambulat ory Pharmac y Influenza, seasonal, injectable, preservative free 4 2011 Unknown, Provider [id number] 140 Sanofi Pasteur ([facility]) complet ed Influenza , seasonal, injectabl e, preservat rachel free DoD influenza, seasonal, injectable-pf 2010 [facility] [id number] 140 sanofi pasteur complet ed influenza , seasonal, injectabl e-pf 06/15/11 Given Ambulat ory Pharmac y Influenza, seasonal, injectable, preservative free 3 2010 Unknown, Provider [id number] 140 Sanofi Pasteur ([facility]) complet ed Influenza , seasonal, injectabl e, preservat rachel free DoD influenza virus vaccine,split 2009 [facility] Arm [id number] 15 sanofi pasteur complet ed influenza virus vaccine,s plit 06/30/10 Given Ambulat ory Pharmac y influenza virus vaccine, split virus (incl. purified surface antigen)-reti red CODE 1 2009 Unknown, Provider [id number] 15 Sanofi Pasteur ([facility]) complet ed influenza virus vaccine, split virus (incl. purified surface antigen)- retired CODE [facility] Novel Influenza-H1N 1-09,live virus,nasal 2009 [id number] [employer] comple t ed Novel Influenza -[id number], live virus,rafal al 08/29/09 Given Ambulat ory Pharmac y Novel Influenza-H1N 1-09, live virus for nasal administratio n 1 2009 Unknown, Provider [id number] 125 [employer] (MED) complet ed Novel Influenza -[id number], live virus for nasal administr ation DoD influenza virus vaccine,split 2008 [facility] Arm [id number] 15 sanofi pasteur complet ed influenza virus vaccine,s plit 05/16/09 Given Ambulat ory Pharmac y influenza virus vaccine, split virus (incl. purified surface antigen)-reti red CODE 1 2008 Unknown, Provider [id number] 15 Sanofi Pasteur ([facility]) complet ed [...] ADM Date DC Date Status Disposition Source [address] [place] [address] [place] [facility] [facility] OUTPATIENT [id number] [phone] physica l to go to school for medical assista ALDO Johnson 04/04 Released w/o Limitations [address] [place] [address] [place] [facility]S [facility] Tm Blue) [address] [place] [address] [place] [facility]Sco tt [facility] [employer] Tm Blue) TELE CONSULT [id number] Medicat ion Request HARDY GLOVER 05/[address] [place] [address] [place] [facility]S cott [facility] Tm Blue) [address] [place] [address] [place] [facility]Sco tt [facility] [employer] Tm Blue) OUTPATIENT [id number] rash on hand... .[phone] ADELINE GU 07/05 Released w/o Limitations [address] [place] [address] [place] [facility]S [facility] FAM[facility] Tm Blue) [address] [place] [address] [place] [facility]Sco tt [facility] FAMRES Tm Blue) TELE CONSULT [id number] Medicat ion Request ALDO DAY 08/[address] [place] [address] Group [place] [facility] ([facility]S cott [facility] FAMRES Tm Blue) [address] [place] [address] [place] [facility] ([facility])(Sco tt [facility] Tm Blue) OUTPATIENT [id number] annual pap.... [id number] WANDA FELICIANO 09/18 Released w/o Limitations [facility] [place] [employer] ([facility])(S cott [facility] Tm Blue) [address] [place] [address] [place] [facility]Associate Partner ecology) OUTPATIENT [id number] feared medical conditi on not demonst rated MARGARETTE TABARES 10/03 Released w/o Limitations [address] [place] [address] [place] [facility] ([facility])(G ynecolo gy) [address] [place] [address] [place] [facility]Ob/ Associate Partner) TELE CONSULT [id number] us and lab results MARGARETTE TABARES 10/[address] [place] [address] [place] [employer] ([facility])(O b/Associate Partner) [address] [place] [address] [place] [employer] ([facility])(Associate Partner ecology) OUTPATIENT [id number] preg test CHETNA BARKER 11/02 Released w/o Limitations [address] [place] [address] [place] [employer] ([facility])(G ynecolo gy) [address] [place] [address] [place] [facility] ([facility])(Sco tt [facility] Tm Blue) TELE CONSULT [id number] Medicat ion Request ALDO DAY 11/05[facility] [place] [facility] ([facility])(S cott [facility] FAMRES Tm Blue) [address] [place] [address] [place] [facility]co tt [facility] Fam Res Tm Green) OUTPATIENT [id number] medicat ion/OB questio AFSHIN Martin 11/09 Released w/o Limitations [address] [place] [address] [place] ([facility])(S cott [facility] Fam Res Tm Green) [address] [place] [address] [place] [facility] ([facility])(Sco tt [facility] Tm Blue) OUTPATIENT [id number] initiat e OB care ANNE HUTRADO 11/12 Released w/o Limitations [facility] [place] ([facility]S cott [facility] FAMRES Tm Blue) [employer] ([facility])(Sco tt [facility] FAMRES Tm Blue) OUTPATIENT [id number] early pregnan cy; hyperem keanu ADELINE GUVEENA 11/19 Released w/o Limitations [employer] [place] [employer] ([facility])(S cott [facility] FAMRES Tm Blue) [employer] ([facility])(Ob/ Associate Partner) OUTPATIENT [id number] transfe r in from [facility] EDC [id number] ZACK TOWNSEND 12/17 Released w/o Limitations [facility] [employer] ([facility])(O b/Associate Partner) [facility] [employer] ([facility])(Ob/ Associate Partner) OUTPATIENT [id number] new ob - edc jul 10 JE LUNA 01/02 Released w/o Limitations [facility] [employer] ([facility])(O b/Associate Partner) [facility] [employer] ([facility])(Ob/ Associate Partner) TELE CONSULT [id number] referra JE Mathews 01/03 [facility] [employer] ([facility])(O b/Associate Partner) [facility] [employer] ([facility])(Associate Partner ecology) TELE CONSULT [id number] Needs note from doctor TRUNG HALEY 01/16 [facility] [employer] ([facility])(G ynecolo gy) [facility] [employer] ([facility])(Ob/ Associate Partner) OUTPATIENT [id number] 16 wks edc jul 10 JE LUNA 01/23 Released w/o Limitations [facility] [employer] ([facility])(O b/Associate Partner) [facility] [employer] ([facility])(Ob/ Associate Partner) TELE CONSULT [phone] request ing letter TRUNG HALEY 01/23 [facility] [employer] ([facility])(O b/Associate Partner) [facility] [employer] ([facility])(Ob/ Associate Partner) TELE CONSULT [id number] ua TRUNG Doherty 02/05 [facility] [employer] ([facility])(O b/Associate Partner) [facility] [employer] ([facility])(Ob/ Associate Partner) OUTPATIENT [id number] NIC - EDC jul 10 ZACK TOWNSEND 02/20 Released w/o Limitations [employer] [place] [employer] ([facility])(O b/Associate Partner) [employer] ([facility])(Ob/ Associate Partner) TELE CONSULT [id number] JE LUNA 02/28 [employer] ([facility])(O b/Associate Partner) [employer] ([facility])(Ob/ Associate Partner) TELE CONSULT [id number] OB w/ contrac mary N/V KELSIE INIGUEZ 03/11 [facility] [employer] ([facility])(O b/Associate Partner) [facility] [employer] ([facility])(Ob/ Associate Partner) OUTPATIENT [id number] nic - edc jul 10 MARGARETTE TABARES 03/25 Released w/o Limitations [employer] [place] [employer] ([facility])(O b/Associate Partner) [facility] [employer] ([facility])(Ob/ Associate Partner) TELE CONSULT [id number] request for med refill CESARIO JEFFERY 04/09 [facility] [employer] ([facility])(O b/Associate Partner) [facility] [employer] ([facility])(Ob/ Associate Partner) TELE CONSULT [id number] lab result MARGARETTE TABARES 04/12 [facility] [employer] ([facility])(O b/Associate Partner) [facility] [employer] ([facility])(Ob/ Associate Partner) OUTPATIENT [id number] nic - edc jul 10 CESARIO JEFFERY 04/16 Released with Work/Duty Limitations [facility] [employer] ([facility])(O b/Associate Partner) [facility] [employer] ([facility])(Ob/ Associate Partner) TELE CONSULT [id number] test results VERONICA JOHNS 04/30 [facility] [employer] ([facility])(O b/Associate Partner) [facility] [employer] ([facility])(Ob/ Associate Partner) OUTPATIENT [id number] nic - edc jul 10 - discuss deliver y BRIE Nicole 05/16 Released w/o Limitations [employer] ([facility])(O b/Associate Partner) [facility] [employer] ([facility])(Sco tt [facility] Fam Res Tm Green) OUTPATIENT [id number] flu shot for high risk pt AL TALBOT 05/16 Released w/o Limitations [employer] [place] [employer] ([facility])(S cott [facility] Fam Res Tm Green) [facility] [employer] ([facility])(Ob/ Associate Partner) TELE CONSULT [id number] flu symptom s TRUNG HALEY 05/28 [facility] [employer] ([facility])(O b/Associate Partner) [facility] [employer] ([facility])(Ob/ Associate Partner) OUTPATIENT [id number] NIC - EDC 8 JUL 10 JE ARIZA 06/03 Released w/o Limitations [employer] ([facility])(O b/Associate Partner) [facility] [employer] ([facility])(Ob/ Associate Partner) OUTPATIENT [id number] NIC - EDC 8 JUL 10 BRIE CRUZ 06/11 Released w/o Limitations [employer] [place] ([facility])(O b/Associate Partner) [facility] [employer] ([facility])(Ob/ Associate Partner) OUTPATIENT [id number] nic - edc 8 jul 10 JE ARIZA 06/18 Released w/o Limitations [employer] [place] [employer] ([facility])(O b/Associate Partner) [address] [place] [address] [employer] ([facility])(Lion e Managemen t) TELE CONSULT [id number] CM-Hosp ital Admissi on JENSEN URBAN 06/25 [facility] [place] [employer] ([facility])(C ase Managem ent) [facility] [employer] ([facility])(Ob/ Associate Partner) TELE CONSULT [id number] burning during urinati on DORI DAVENPORT L 07/01 [facility] [employer] ([facility])(O b/Associate Partner) [facility] [employer] ([facility])(Sco tt [facility] FAMRES Tm Blue) OUTPATIENT [id number] lactati on consult from WANDA Shine 07/05 Released w/o Limitations [employer] [place] [employer] ([facility])(S cott [facility] FAMRES Tm Blue) [facility] [employer] ([facility])(Ob/ Associate Partner) OUTPATIENT [id number] 6 wk pp - deliver ed Jun 10 BRIE CRUZ 08/05 Released w/o Limitations [employer] ([facility])(O b/Associate Partner) [facility] [place] ([facility])(Sco tt [facility] FAMRES Tm Blue) TELE CONSULT [id number] med ALDO Saenz 08/14 [facility] [place] ([facility])(S cott [facility] FAMRES Tm Blue) [facility] [place] [employer] ([facility])(Associate Partner ecology) OUTPATIENT [id number] james denney on BRIE CRUZ 08/20 Released w/o Limitations [facility] [place] [employer] ([facility])(G ynecolo gy) [facility] [place] [employer] ([facility])(Sco tt [facility] FAMRES Tm Blue) OUTPATIENT [id number] dry hands and feet cell# [phone] LEXY BRICENO 08/29 Released w/o Limitations [facility] [place] [employer] ([facility])(S cott [facility] FAMRES Tm Blue) [facility] [place] [employer] ([facility])(Ob/ Associate Partner) TELE CONSULT [id number] some concern s with JE GALE 09/13[facility] [place] ([facility])(O b/Associate Partner) [address] [place] [address] [place] [facility] ([facility])(Sco tt [facility] FAMRES Tm Blue) OUTPATIENT [id number] fu left hand [phone] VASU CARPENTER 10/18 Released w/o Limitations [facility] [place] ([facility])(S cott [facility] FAMRES Tm Blue) [address] [place] [address] [place] ([facility])(Hubert matology) OUTPATIENT [id number] DYSHIDR MONI DILL 11/08 Released w/o Limitations [facility] [place] ([facility])(Dilma woo) [address] [place] [address] [place] ([facility])(Sco tt [facility] FAMRES Tm Blue) TELE CONSULT [id number] refill VASU Petty 12/19[facility] Irsael KELSEYB ([facility])(S cott [facility] Tm Blue) [facility] [employer] ([facility])(Ob/ Associate Partner) TELE CONSULT [id number] appt VERONICA JOHNS 12/31 375 [facility] [place] [employer] ([facility])(O b/Associate Partner) [facility] [place] [employer] ([facility])(Opt ometry) OUTPATIENT [id number] eye exam... [id number] LUZ MUHAMMAD 12/31 Released w/o Limitations [facility] [place] [employer] ([facility])(O ptometr y) [facility] [place] [employer] ([facility])(Associate Partner ecology) OUTPATIENT [id number] iud removal BRIE CRUZ 01/14 Released w/o Limitations [facility] [place] [employer] ([facility])(G ynecolo gy) [facility] [place] [employer] ([facility])(Sco tt [facility] Tm Blue) OUTPATIENT [id number] discuss quittin g smoking /ear acupunt ALDO Swenson 01/24 Released w/o Limitations [facility] [place] [employer] ([facility])(S cott [facility] Tm Blue) [address] [place] [address] [place] ([facility])(Sco tt [facility] Tm Blue) TELE CONSULT [id number] Medical Inquiry ALDO DAY 03/31[facility] [place] [employer] ([facility])(S cott [facility] Tm Blue) [address] [place] [address] [place] [employer] ([facility])(Sco tt [facility] Tm Blue) OUTPATIENT [id number] f/u ibs/gal lbladde ALDO Vega 04/15 Released w/o Limitations [facility] [place] [employer] ([facility])(S cott [facility] Tm Blue) [facility] [place] [employer] ([facility])(Associate Partner ecology) OUTPATIENT [id number] bp check and review [facility] - [id number] BRIE CRUZ 04/17 Released w/o Limitations [facility] [place] KELSEYB ([facility])(G ynecolo gy) [facility] [place] KELSEYB ([facility])(Fam jesus Med Tm B Non-AD BCC) OUTPATIENT [id number] Congest ion [phone] MONI BOSS 08/05 Released w/o Limitations [facility] [place] KELSEYB ([facility])(F amily Med Tm B Non-AD BCC) [facility] [place] [employer] ([facility])(Associate Partner ecology) OUTPATIENT [id number] pregnan cy test KELSIE INIGUEZ 08/05 Released w/o Limitations [address] [place] [address] [place] [facility])(G ynecolo gy) [address] [place] [address] [place] [facility])(War rior Op Med Cln Tm A Ad) TELE CONSULT [id number] Patient is request ing a refill on med Amitrip tyline. SIDDHARTH CURTIS 08/[address] [place] [address] [place] [facility])(W arrior Op Med Cln Tm A Ad) [address] [place] [address] [place] [facility])(Fam jesus Med Tm B Non-AD BCC) OUTPATIENT [id number] wrist pain [phone] EFREN MAYA 09/17 Released w/o Limitations [address] [place] [address] [place] [facility])(F amily Med Tm B Non-AD BCC) [address] [place] [address] [place] [facility])(War rior Op Med Cln Tm A Ad) OUTPATIENT [id number] feeling nervous all the time [phone] EFREN MAYA 02/11 Released w/o Limitations [address] [place] [address] [place] LAUREReynaldo [facility])(W arrior Op Med Cln Tm A Ad) [address] [place] [address] [place] [facility])(War rior Op Med Cln Tm A Ad) OUTPATIENT [id number] abd pain [phone] EFREN MAYA 04/27 Released w/o Limitations [address] [place] [address] [place] [facility])(W arrior Op Med Cln Tm A Ad) [address] [place] [address])(War rior Op Med Cln Tm A Ad) TELE CONSULT [id number] Lab Result Review results with patient EFREN MAYA 04/[address] [place] [address] [place] [facility])(W arrior Op Med Cln Tm A Ad) [address] [place] [address] [place] [facility])(War rior Op Med Cln Tm A Ad) TELE CONSULT [id number] Notes Entered by: GENA MARTE 17 Dec 2011 1237 ------- ------- ------- ------- -- Tcon for possibl e sinus infecti on PA Florentino ph [phone] cad eduardo EASTEVONNE MCELROY George 12/[address] [place] [address])(W arrior Op Med Cln Tm A Ad) [address] [place] [address])(War rior Op Med Cln Tm A Ad) OUTPATIENT [id number] sinus infecti on [id number] EFREN MAYA 12/23 Released w/o Limitations [address] [place] [address])(W arrior Op Med Cln Tm A Ad) [address] [place] [address])(War rior Op Med Cln Tm A Ad) TELE CONSULT [id number] Notes Entered by: Duglas SILVESTRE 09 Mar 2012 1342 ------- ------- ------- ------- -- Med refill Nexium 40 mg daily Lance /[facility] [id number] ANDRAE SIMS 03/[address] [place] [address])(W arrior Op Med Cln Tm A Ad) [address] [place] [address])(War rior Op Med Cln Tm A Ad) OUTPATIENT [id number] cough congest ion [phone] LOIS IBARRA 06/09 Released w/o Limitations [address] [place] [address])(W arrior Op Med Cln Tm A Ad) [address] [place] [address])(Associate Partner ecology) TELE CONSULT [id number] Notes Entered by: Toby YA 10 Jun 2012 1448 ------- ------- ------- ------- -- Walk in HCG LARY NICHOLAS 06/[address] [place] [address])(G ynecolo gy) [address] [place] [address])(Fam jesus Med Tm B Non-AD BCC) TELE CONSULT [id number] Notes Entered by: RONAL NUNO 22 Jun 2012 0925 ------- ------- ------- ------- -- Vaginal pain, abnorma l JE Tiwari 06/[address] [place] [address])(F amily Med Tm B Non-AD BCC) [address] [place] [address])(Associate Partner ecology) TELE CONSULT [id number] Notes Entered by: LEVON FLORES 22 Jun 2012 1117 ------- ------- ------- ------- -- F/u appt for ER visit LARY NICHOLAS 06/[address] [place] [address])(G ynecolo gy) [address] [place] [address])(Associate Partner ecology) TELE CONSULT [id number] Notes Entered by: KARTHIK SANDOVAL 06 Jul 2012 1352 ------- ------- ------- ------- -- Resched pia [place] appt - Josue f - [phone] MARY JO ELKINS 07/06 Referred for Appointment [address] [place] [address])(G ynecodenis gy) [address] [place] [address])(Associate Partner ecology) OUTPATIENT [id number] Follow up ER visit, lower pelvic pain, UTI, dysuria and mild inconti ANI Evans 07/15 Released w/o Limitations [address] [place] [address])(G ynecodenis gy) [address] [place] [address])(Ob/ Associate Partner) TELE CONSULT [id number] Notes Entered by: TESSA SORIA 12 Aug 2012 1007 ------- ------- ------- ------- -- Lab result VERONICA JOHNS 08/[address] [place] [address])(O b/Associate Partner) [address] [place] [address])(Andrew riojim Op Med Cln Tm A Ad) TELE CONSULT [id number] Notes Entered by: RONAL NUNO 17 Aug 2012 1020 ------- ------- ------- ------- -- Vaginal itching /burnin g ANDRAE Nguyen 08/[address] [place] [address] [place] [facility])(W arrior Op Med Cln Tm A Ad) [address] [place] [address] [place] [facility])(Associate Partner ecology) TELE CONSULT [id number] Notes Entered by: TESSA SORIA 30 Aug 2012 1003 ------- ------- ------- ------- -- US result VERONICA JOHNS 08/[address] [place] [address] [place] [facility])(G ynecodenis gy) [address] [place] [address] [place] [facility])([facility] Team 3) OUTPATIENT [id number] neck and shoulde r pain x 2 weeks; denies injury, LOIS IBARRA 10/11 Released w/o Limitations [address] [place] [address])([facility] Team 3) [address] [place] [address] [place] [facility])([facility] Team 3) TELE CONSULT [id number] Notes Entered by: RONAL NUNO 19 Oct 2012 1356 ------- ------- ------- ------- -- Flu symptom s ANDRAE Nguyen 10/[address] [place] [address])([facility] Team 3) [address] [place] [address] [place] [facility])([facility] Team 3) TELE CONSULT [id number] Notes Entered by: SOPHIA LARA 08 Nov 2012 1206 ------- ------- ------- ------- -- Ling Devlin [id number] ANDRAE HEDRICK 11/[address] [place] [address])([facility] Team 3) [address] [place] [address])(War rior Op Med Cln Tm A Ad) TELE CONSULT [id number] Notes Entered by: OWEN NEGRETE 21 Nov 2012 0824 ------- ------- ------- ------- -- Josue ruelas/ANDRAE Mariscal 11/[address] [place] [address])(W arrior Op Med Cln Tm A Ad) [address] [place] [address])(War rior Op Med Cln Tm A Ad) TELE CONSULT [id number] Notes Entered by: KANU ANGEL 14 Dec 2012 1129 ------- ------- ------- ------- -- Network Results - Physica l Therapy - 3 LOIS IBARRA 12/[address] [place] [address])(W arrior Op Med Cln Tm A Ad) [address] [place] [address])([facility] Team 3) TELE CONSULT [id number] Notes Entered by: SHAUN JOHNSTON 22 Dec 2012 1443 ------- ------- ------- ------- -- Med Lilia- Josue ruelas/ ANDRAE SIMS 12/[address] [place] [address])([facility] Team 3) [address] [place] [address])(Andrew rior Op Med Cln Tm A Ad) TELE CONSULT [id number] Notes Entered by: KANU ANGEL 23 Jan 2013 1211 ------- ------- ------- ------- -- Network Results - Physica l Therapy - 3 MANN BUCIO 01/[address] [place] [address])(W arrior Op Med Cln Tm A Ad) [address] [place] [address])([facility] Team 3) TELE CONSULT [id number] Notes Entered by: Duglas SILVESTRE 25 Jan 2013 1510 ------- ------- ------- ------- -- Med refill Leonel MACARENA THOMAS I 01/[address] [place] [address] Group [place] [facility])(S kneisha [facility] Team 3) [address] [place] [address] [place] [facility])(War rior Op Med Cln Tm A Ad) OUTPATIENT [id number] acid relux-m ed not working , ring in L ear [id number] RAHUL SCHMITT 02/21 Released w/o Limitations [address] [place] [address] Group [place] [facility]W arrior Op Med Cln Tm A Ad) [address] [place] [address] [place] [facility])(War rior Op Med Cln Tm A Ad) TELE CONSULT [id number] Notes Entered by: RAHUL SCHMITT 22 Feb 2013 1254 ------- ------- ------- ------- -- F/u from labs RAHUL SCHMITT 02/[address] [place] [address] [place] [facility])(W arrior Op Med Cln Tm A Ad) [address] [place] [address] [place] [facility])(War rior Op Med Cln Tm A Ad) TELE CONSULT [id number] Notes Entered by: STARLA MARES 03 Mar 2013 1510 ------- ------- ------- ------- -- Ear pain/Giraldo jae / JODIE RODRIGUEZ 03/03 Referred for Appointment [address] [place] [address] Group [place] [facility])(W arrior Op Med Cln Tm A Ad) [address] [place] [address] [place] [facility])(War rior Op Med Cln Tm A Ad) OUTPATIENT [id number] ear pain JYOTHI BATES 03/06 Released w/o Limitations [address] [place] [address] Group [place] [facility])(W arrior Op Med Cln Tm A Ad) [address] [place] [address] [place] [facility])(War rior Op Med Cln Tm A Ad) TELE CONSULT [id number] Notes Entered by: SOPHIA LARA 09 Mar 2013 1506 ------- ------- ------- ------- -- Referra [facility] - [id number] [id number] JODIE RODRIGUEZ 03/09 Referred for Appointment [address] [place] [address] [place] [facility])(W arrior Op Med Cln Tm A Ad) [address] [place] [address] [place] [facility])(Associate Partner ecology) TELE CONSULT [id number] Notes Entered by: SUSAN CONTRERAS 27 Apr 2013 0942 ------- ------- ------- ------- -- Walk in for pregnan cy test SANDRA YONG T 04/[address] [place] [address])(Geoffrey arenas) [address] [place] [address])(War rior Op Med Cln Tm A Ad) TELE CONSULT [id number] Notes Entered by: Duglas SILVESTRE 28 Apr 2013 1157 ------- ------- ------- ------- -- Sinus infecti on Hargr es EB DOMINGO 04/[address] [place] [address])(W arrior Op Med Cln Tm A Ad) [address] [place] [address] [place] [facility])(War valerier Op Med Cln Tm A Ad) TELE CONSULT [id number] Notes Entered by: STARLA MARES 01 May 2013 08 ------- ------- ------- ------- -- Appt request /beverley lomas/[phone] EB DOMINGO 05/[address] [place] [address])(W arrior Op Med Cln Tm A Ad) [address] [place] [address])(Ob/ Associate Partner) OUTPATIENT [id number] New OB with IBS EDC approx Oct 14. CLEMENTINA DAVILA 05/01 Released w/o Limitations [address] [place] [address])(O b/Associate Partner) [address] [place] [address])(Ob/ Associate Partner) OUTPATIENT [id number] Notes Entered by: JENI CHEN 05 May 2013 1132 ------- ------- ------- ------- -- NIC RAHMAN 5May14/ repeat u/s CLEMENTINA DAVILA 05/05 Released w/o Limitations [facility])(O b/Associate Partner) [address] [place], [place] [address]B [facility])(Ob/ Associate Partner) TELE CONSULT [id number] Notes Entered by: MARY JO ELKINS 10 May 2013 1250 ------- ------- ------- ------- -- Constip CLEMENTINA Stanley 05/[address] [place], [place] [address]B ([facility])(O b/Associate Partner) [address] [place], [place] [address]B [facility])(Ob/ Associate Partner) OUTPATIENT [id number] NIC RAHMAN [id number] GUERRERO DWYER 05/25 Released w/o Limitations [address] [place], [place] [address]B [facility])(O b/Associate Partner) [address] [place], [place] [address]B [facility])(Ob/ Associate Partner) TELE CONSULT [id number] Notes Entered by: MARY JO ELKINS 03 Jul 2013 1451 ------- ------- ------- ------- -- Medicat MARY JO Guerrero 07/[address] [place] [address])(O b/Associate Partner) [address] [place], [place] [address]B [facility])(Ob/ Associate Partner) TELE CONSULT [id number] Notes Entered by: MARY JO ELKINS 05 Jul 2013 1309 ------- ------- ------- ------- -- Cold Symptom s MARY JO ELKINS 07/[address] [place], [place] [address]B ([facility])(O b/Associate Partner) [address] [place], [place] [address]B ([facility])(Ob/ Associate Partner) OUTPATIENT [id number] NIC RAHMAN December 13 VIOLET WALKER 07/06 Released w/o Limitations [facility] [facility])(O b/Associate Partner) [address] [place] [address])(Ob/ Associate Partner) TELE CONSULT [id number] Notes Entered by: MARY JO ELKINS 06 Jul 2013 1426 ------- ------- ------- ------- -- MF MARY JO Corley 07/[address] [place] [address])(O b/Associate Partner) [address] [place] [address])(Ob/ Associate Partner) TELE CONSULT [id number] Notes Entered by: MARY JO ELKINS 17 Jul 2013 1109 ------- ------- ------- ------- -- Anxiety MARY JO ELKINS 07/[address] [place] [address])(O b/Associate Partner) [address] [place] [address])(Ob/ Associate Partner) TELE CONSULT [id number] Notes Entered by: LASHELL PARIS 18 Jul 2013 0758 ------- ------- ------- ------- -- [facility] Results [facility] GUERRERO DWYER 07/[address] [place] [address])(O b/Associate Partner) [address] [place] [address])(Ob/ Associate Partner) OUTPATIENT [id number] evaluat ion for anti-an xiety medicat ion d/t acute panic attacks GUERRERO DWYER 07/18 Released w/o Limitations [address] [place] [address])(O b/Associate Partner) [address] [place] [address])(Ob/ Associate Partner) TELE CONSULT [id number] Notes Entered by: MARY JO ELKINS 11 Aug 2013 1606 ------- ------- ------- ------- -- Medicat ion Refill GUERRERO DWYER 08/[address] [place] [address])(O b/Associate Partner) [address] [place] [address])(Ob/ Associate Partner) TELE CONSULT [id number] Notes Entered by: LASHELL PARIS 16 Aug 2013 1040 ------- ------- ------- ------- -- Network Results -OBSTET RICS 08/14/13 ANI CHOI 08/[address] [place] [address])(O b/Associate Partner) [address] [place] [address])(Ob/ Associate Partner) OUTPATIENT [id number] [facility] de[facility] 13 GUERRERO DWYER 08/17 Released w/o Limitations [address] [place] [address] [place] [facility])(O b/Associate Partner) [address] [place] [address])(Ob/ Associate Partner) TELE CONSULT [id number] Notes Entered by: ST KATERYNA DAVILA 27 Aug 2013 1307 ------- ------- ------- ------- -- anxiety CLEMENTINA DAVILA 08/[address] [place] [address])(O b/Associate Partner) [address] [place] [address])(Ob/ Associate Partner) OUTPATIENT [id number] follow up appt/an xiety attacks /treatm ent plan GUERRERO DWYER 08/28 Released w/o Limitations [address] [place] [address])(O b/Associate Partner) [address] [place] [address] [place] [facility])(Ob/ Associate Partner) TELE CONSULT [id number] Notes Entered by: Aster DWYER 29 Aug 2013 0908 ------- ------- ------- ------- -- Anxiety GUERRERO DWYER 08/[address] [place] [address])(O b/Associate Partner) [address] [place] [address])(Ob/ Associate Partner) TELE CONSULT [id number] Notes Entered by: Duglas DAVIES 05 Sep 2013 1131 ------- ------- ------- ------- -- ANTONIO Puente 09/[address] [place] [address] [place] [facility])(O b/Associate Partner) [address] [place] [address])(Ob/ Associate Partner) OUTPATIENT [id number] f/u hospita lizatio n/anxie ANI Irving 09/08 Released w/o Limitations [address] [place] [address] [place] [facility])(O b/Associate Partner) [address] [place] [address])(Ob/ Associate Partner) TELE CONSULT [id number] Notes Entered by: ME JARED CANO 12 Sep 2013 1146 ------- ------- ------- ------- -- Insomni a 24 6/7 week Ob-per our convers GUERRERO Alanis 09/[address] [place] [address])(O b/Associate Partner) [address] [place] [address] [place] [facility])(Sco [facility] Tm Green) TELE CONSULT [id number] Notes Entered by: Jim ENRIQUEZ 12 Sep 2013 1747 ------- ------- ------- ------- -- seen inpatie nt, needs THELMA Barahona 09/[address] [place] [address])([facility]) [address] [place] [address])(Ob/ Associate Partner) TELE CONSULT [id number] Notes Entered by: MARY JO ELKINS 13 Sep 2013 1540 ------- ------- ------- ------- -- MACARENA Rao I 09/[address] [place] [address])(O b/Associate Partner) [address] [place] [address])(Ob/ Associate Partner) OUTPATIENT [id number] NEW MEDICAT ION FOLLOW UP/EDC DECEMBER 13 GUERRERO DWYER 09/15 Released w/o Limitations [address] [place] [address])(O b/Associate Partner) [address] [place] [address] [place] [facility])(Ob/ Associate Partner) TELE CONSULT [id number] Notes Entered by: MARY JO ELKINS 19 Sep 2013 1505 ------- ------- ------- ------- -- Medicat ramandeep heredia YULIYAGUERRERO 09/[address] [place] [address])(O b/Associate Partner) [address] [place] [address])(Associate Partner ecology) TELE CONSULT [id number] Notes Entered by: LASHELL PARIS 20 Sep 2013 0816 ------- ------- ------- ------- -- [facility] Results [facility] 09/12/13 ANI CHOI 09/[address] [place] [address])(Geoffrey razo gy) [address] [place] [address])(Ob/ Associate Partner) OUTPATIENT [id number] nic edc december 13 THELMA HA 09/21 Released with Work/Duty Limitations [address] [place] [address])(O b/Associate Partner) [address] [place] [address])(Ob/ Associate Partner) OUTPATIENT [id number] HROB EDCDecember 13 YULIYA GUERRERO B 09/25 Released w/o Limitations [address] [place] [address])(O b/Associate Partner) [address] [place] [address])(Ob/ Associate Partner) TELE CONSULT [id number] Notes Entered by: YAZAN MILLS 26 Sep 2013 0920 ------- ------- ------- ------- -- HROB-vo augustine/ CLEMENTINA Perez 09/[address] [place] [address])(O b/Associate Partner) [address] [place] [address])(Ob/ Associate Partner) TELE CONSULT [id number] Notes Entered by: MARY JO ELKINS 02 Oct 2013 1052 ------- ------- ------- ------- -- [facility] MARY JO Corley 10/[address] [place] [address])(O b/Associate Partner) [facility] [place] ([facility])(Associate Partner ecology) TELE CONSULT [id number] Notes Entered by: Aster DWYER 03 Oct 2013 0803 ------- ------- ------- ------- -- Abnorma l glucose screen GUERRERO DWYER 10/[address] [place] [address] Group [place] ([facility])( dontrellalka gy) [facility] [place] ([facility])(Ob/ Associate Partner) OUTPATIENT [id number] HROB/ EDC December 13 GUERRERO DWYER 10/05 Released w/o Limitations [facility] Medical Group [place] ([facility])(O b/Associate Partner) [address] [place] [address] [place] ([facility])(Associate Partner ecology) TELE CONSULT [id number] Notes Entered by: Aster DWYER 06 Oct 2013 1542 ------- ------- ------- ------- -- Elevate d 3 hr GTT MACARENA THOMAS I 10/[address] [place] [address] Group [place] ([facility])(G ybraxtoncodenis gy) [address] [place] [address] [place] ([facility])(Ob/ Associate Partner) OUTPATIENT [id number] HROB/ EDC GUERRERO DWYER 10/13 Released w/o Limitations [address] [place] [address] Group [place] ([facility])(O b/Associate Partner) [facility] Medical [facility] [place] ([facility])(Ob/ Associate Partner) TELE CONSULT [id number] Notes Entered by: LASHELL PARIS 18 Oct 2013 0905 ------- ------- ------- ------- -- Network Results -OBSTET RICS 10/05/13 CLEMENTINA DAVILA 10/[address] [place] [address] Group [place] ([facility])(O b/Associate Partner) [facility] Medical [facility] [place] ([facility])(Ob/ Associate Partner) OUTPATIENT [id number] HROB/ EDC December 13 GUERRERO DWYER 10/19 Released w/o Limitations [address] [place] [address] Group [place] ([facility])(O b/Associate Partner) [address] [place] [address] [place] [facility]Ob/ Associate Partner) TELE CONSULT [id number] Notes Entered by: LASHELL PARIS 20 Oct 2013 1131 ------- ------- ------- ------- -- Network Results -OBSTET RICS 10/06/13 GUERRERO DWYER 10/[address] [place] [address] [place] ([facility])(O b/Associate Partner) [address] [place] [address] [place] [facility]) TELE CONSULT [id number] Notes Entered by: CATHY TOMAS 25 Oct 2013 1058 ------- ------- ------- ------- -- Message from OB TEAM CATHY TOMAS 10/[address] [place] [address] [place] [facility]APP ([facility] [address] [place] [address] [place] [facility]APP ([facility])(Associate Partner ecology) TELE CONSULT [id number] Notes Entered by: Aster DWYER 26 Oct 2013 0954 ------- ------- ------- ------- -- Pt phoneca ll GUERRERO DWYER 10/[address] [place] [address] [place] [facility]G ynecolo gy) [address] [place] [address] [place] [facility]Ob/ Associate Partner) OUTPATIENT [id number] HROB EDC [id number] CLEMENTINA DAVILA 10/26 Released w/o Limitations [facility] [place] [facility]O b/Associate Partner) [address] [place] [address] [place] [facility]Ob/ Associate Partner) TELE CONSULT [id number] Notes Entered by: RAHDA LANZA 27 Oct 2013 1511 ------- ------- ------- ------- -- Medicat ion inquiry GAYE DECKER 10/[address] [place] [address] [place] KELSEYB ([facility])(O b/Associate Partner) [address] [place] [address] [place] [facility]Ob/ Associate Partner) TELE CONSULT [id number] Notes Entered by: RADHA LANZA 30 Oct 2013 0915 ------- ------- ------- ------- -- Medicat ion reactio n GAYE DECKER 10/[address] [place] [address])(O b/Associate Partner) [address] [place] [address])([facility]) OUTPATIENT [id number] [facility] REYES CHOWDHURY 11/03 Released w/o Limitations [address] [place] [address])(N utritio nal Medicin e) [address] [place] [address])(Ob/ Associate Partner) TELE CONSULT [id number] Notes Entered by: RADHA LANZA 08 Nov 2013 0803 ------- ------- ------- ------- -- Refill prescri ption GAYE DECKER 11/[address] [place] [address])(O b/Associate Partner) [address] [place] [address])(War rior Op Med Cln Tm A Ad) OUTPATIENT [id number] Cough/C ongesti on TERESOCHETNA OLIVARES 11/08 Released w/o Limitations [address] [place] [address])(W arrior Op Med Cln Tm A Ad) [address] [place] [address])(Ob/ Associate Partner) OUTPATIENT [id number] HROB EDC [id number] GUERRERO DWYER 11/13 Released w/o Limitations [address] [place] [address])(O b/Associate Partner) [address] [place] [address])(Ob/ Associate Partner) OUTPATIENT [id number] HROB/ED C December 13 CLEMENTINA DAVILA 11/27 Released w/o Limitations [address] [place], [place] [address]O b/Associate Partner) [address] [place] [address])(Ob/ Associate Partner) TELE CONSULT [id number] Notes Entered by: JANINA MUHAMMAD 04 Dec 2013 0933 ------- ------- ------- ------- -- Nausea and dry heaving MACARENA THOMAS I 12/[address] [place] [address] [employer] ([facility])(O b/Associate Partner) [facility] [place] [employer] ([facility])(Ob/ Associate Partner) TELE CONSULT [id number] Notes Entered by: LASHELL PARIS 11 Dec 2013 1121 ------- ------- ------- ------- -- Network Results -OBSTET RICS 12/04/13 GUERRERO DWYER 12/[address] [place] [address] [place] [employer] ([facility])(O b/Associate Partner) [address] [place] [address] [place] [employer] ([facility])(Ob/ Associate Partner) OUTPATIENT [id number] Post check up/del December 13 CLEMENTINA DAVILA 12/21 Released w/o Limitations [address] [place] [address] [place] [employer] ([facility])(O b/Associate Partner) [address] [place] [address] [place] [employer] ([facility])(Ob/ Associate Partner) OUTPATIENT [id number] 6WPP/ Del 05 Dec 2013 ANI CHOI 01/23 Released w/o Limitations [address] [place] [address] [place] [employer] ([facility])(O b/Associate Partner) [facility] [place] [employer] ([facility])(Associate Partner ecology) OUTPATIENT [id number] diaphra ALYSSA Michel 02/20 Released w/o Limitations [address] [place] [address] [place] [employer] ([facility])(Geoffrey razo gy) [address] [place] [address] [place] [employer] [facility]Andrew rior Op Med Cln Tm A Ad) TELE CONSULT [id number] Notes Entered by: Abelino SILVESTRE 01 May 2014 1304 ------- ------- ------- ------- -- SOFIA RUVALCABA/Gayle ceballos/ 18 [phone] EVONNE BRAR 05/[address] [place] [address] [place] [employer] ([facility])(W arrior Op Med Cln Tm A Ad) [address] [place] [address] [place] [employer] ([facility])(Associate Partner ecology) OUTPATIENT [id number] LUISANA ALEXANDER 06/04 Released w/o Limitations [address] [place] [address] [place] [employer] ([facility])(Geoffrey razo gy) [facility] Medical [facility] [place] [employer] ([facility])(Associate Partner ecology) OUTPATIENT [id number] Paratyrone d Inserti on [phone] LUISANA DEVLIN MELO 06/18 Released w/o Limitations Medical [facility] [place] [facility])(G ynecolo gy) [facility] [place] [facility])(War rior Op Med Cln Tm A Ad) OUTPATIENT [id number] right wrist pain - [id number] CHETNA MESA 07/09 Released w/o Limitations [facility] [place] [facility])(W arrior Op Med Cln Tm A Ad) [facility] [employer] [place] [facility])(Associate Partner ecology) OUTPATIENT [id number] paraa rd placeme nt check LUISANA DEVLINENE 09/07 Released w/o Limitations [facility] [place] [facility] ([facility])(G ynecolo gy) [facility] [place] [facility] ([facility])(War rior Op Med Cln Tm A Ad) TELE CONSULT [id number] Notes Entered by: ROZ GASTELUM 21 Sep 2014 1006 ------- ------- ------- ------- -- SX - multipl e sx/Elsn [facility] t/ * MANN COLON 09/21 [facility] [place] [facility])(W arrior Op Med Cln Tm A Ad) [facility] [place] [facility])( rior Op Med Cln Tm A Ad) OUTPATIENT [id number] Ovarian Cyst, ER Visit LAMAR Donnelly 09/24 Released w/o Limitations [facility] [place] [facility] ([facility])(W arrior Op Med Cln Tm A Ad) [facility] Medical Group [place] [facility])(Associate Partner ecology) OUTPATIENT [id number] Possibl e Ovarion Cyst GUERRERO DWYER 09/24 Released w/o Limitations [facility] [place] [facility]APP ([facility])(G ynecolo gy) [address] [place] [address] [place] [facility])(Ob/ Associate Partner) TELE CONSULT [id number] Notes Entered by: Aster DWYER 04 Oct 2014 1623 ------- ------- ------- ------- -- U/S results VERONICA JOHNS 10/04 [facility] [place] [facility] ([facility])(O b/Associate Partner) [facility] [place] [facility] ([facility])(War rior Op Med Cln Tm A Ad) OUTPATIENT [id number] pain in both feet -L is worse x 1wk [id number] TENZIN HOPE 12/11 Released w/o Limitations [facility] Medical Group [place] ([facility])(W arrior Op Med Cln Tm A Ad) [facility] Medical Group [place] B ([facility])(War rior Op Med Cln Tm A Ad) TELE CONSULT [id number] Notes Entered by: KANU ANGEL 29 Jan 2015 1253 ------- ------- ------- ------- -- Network results Neurolo gy 5 TENZIN HOPE 01/29 [facility] Medical Group [place] [facility] ([facility])(W arrior Op Med Cln Tm A Ad) [facility] Medical Group [place] [facility] ([facility])(Associate Partner ecology) OUTPATIENT [id number] [facility] [phone] ALYSSA COLÓN 02/05 Released w/o Limitations [address] [place] [address] [facility])(Geoffrey razo gy) [facility] Medical [facility] ([facility])(Associate Partner ecology) TELE CONSULT [id number] Notes Entered by: ANDREWS COLÓN 12 Feb 2015 1635 ------- ------- ------- ------- -- results LAMAR ALVARADO 02/[address] [place] [address] Group [place] ([facility])(G dung gy) [address] [place] [address] [facility] ([facility])(War rior Op Med Cln Tm A Ad) TELE CONSULT [id number] Notes Entered by: KANU ANGEL 01 Mar 2015 0938 ------- ------- ------- ------- -- Network results Charbelo gy 5 TENZIN HOPE 03/[address] [place] [address])(W arrior Op Med Cln Tm A Ad) [address] [place] [address])(Associate Partner ecology) TELE CONSULT [id number] Notes Entered by: JUAN ALBERTO GRIMM 10 Apr 2015 1049 ------- ------- ------- ------- -- Sx - Multipl e sx/Layla pagne/6 [phone]. [phone] ANANDA WILLAMS 04/[address] [place] [address])(G ynecolo gy) [address] [place] [address])(Associate Partner ecology) OUTPATIENT [id number] pelvic pain, vaginal bleedin g x 2weeks AMAYA BAEZ 04/11 Released w/o Limitations [address] [place] [address])(G ynecolo gy) [address] [place] [address])(War rior Op Med Cln Tm A Ad) TELE CONSULT [id number] Notes Entered by: SAILAJA DEVLIN 15 Apr 2015 0818 ------- ------- ------- ------- -- Lab Results / [facility] ne / KEL THOMPSON 04/[address] [place] [address])(W arrior Op Med Cln Tm A Ad) [address] [place] [address])(War rior Op Med Cln Tm A Ad) TELE CONSULT [id number] Notes Entered by: ALESIA BARRAGAN 26 Apr 2015 1103 ------- ------- ------- ------- -- ER Follow- up/ [facility] ne/ 741.401 2 MANN COLON 04/[address] [place] [address])(W arrior Op Med Cln Tm A Ad) [address] [place] [address])(Associate Partner ecology) OUTPATIENT [id number] discuss tubalig ation [id number] GUERRERO DWYER 04/30 Released w/o Limitations [address] [place] [address])(G ynecolo gy) [address] [place] [address])(War rior Op Med Cln Tm A Ad) TELE CONSULT [id number] Notes Entered by: JEN BADILLO 23 May 2015 1046 ------- ------- ------- ------- -- Network Results -GASTRO ENTEROL OGY 5 TENZIN HOPE 05/[address] [place] [address])(W arrior Op Med Cln Tm A Ad) [address] [place] [address])(Associate Partner ecology) TELE CONSULT [id number] Notes Entered by: GILSON THOMSON 04 Jun 2015 0811 ------- ------- ------- ------- -- Cancel for Bella d/t jad- GILSON Osuna 06/[address] [place] [address])(Geoffrey razo gy) [address] [place] [address])(Associate Partner ecology) TELE CONSULT [id number] Notes Entered by: Aster DWYER 05 Jun 2015 0859 ------- ------- ------- ------- -- U/S result VERONICA JOHNS 06/[address] [place] [address])(G dung gy) [address] [place] [address])(War rior Op Med Cln Tm A Ad) OUTPATIENT [id number] Bad cough, headach e, nasal and chest congest ion [id number] PLACIDO MERAZ 06/05 Released w/o Limitations [address] [place] [address])(W arrior Op Med Cln Tm A Ad) [address] [place] [address])(War rior Op Med Cln Tm A Ad) TELE CONSULT [id number] Notes Entered by: KANU ANGEL 07 Jun 2015 1008 ------- ------- ------- ------- -- Network results Neurolo gy 5 TENZIN HOPE 06/[address] [place] [address])(W arrior Op Med Cln Tm A Ad) [address] [place] [address])(Fam jesus Med Tm B Non-AD BCC) TELE CONSULT [id number] Notes Entered by: MANN COLON 22 Aug 2015 0755 ------- ------- ------- ------- -- Referra [place] for physica l therapy needed MANN COLON 08/[address] [place] [address])(F amily Med Tm B Non-AD BCC) [address] [place] [address])(War rior Op Med Cln Tm A Ad) TELE CONSULT [id number] Notes Entered by: Delgado PIERCE 26 Aug 2015 1313 ------- ------- ------- ------- -- SX - Cody VALERA / Gil ne / JOE ASH 08/26 Referred for Appointment [address] [place] [address])(W arrior Op Med Cln Tm A Ad) [address] [place] [address])(War rior Op Med Cln Tm A Ad) TELE CONSULT [id number] Notes Entered by: KANU ANGEL 28 Aug 2015 1302 ------- ------- ------- ------- -- Network Results - Neurolo gy 6 TENZIN HOPE 08/[address] [place] [address])(W arrior Op Med Cln Tm A Ad) [address] [place] [address])(Associate Partner ecology) OUTPATIENT [id number] Discuss Essure procedu re MEINHART, ANI R A 09/23 Released w/o Limitations [address] [place] [address])(G dung gy) [address] [place] [address])(War rior Op Med Cln Tm A Ad) OUTPATIENT [id number] L and R shoulde r pain x 2 wks 741.401 2 TENZIN HOPE 09/25 Released w/o Limitations [address] [place] [address])(W arrior Op Med Cln Tm A Ad) [address] [place] [address])(War rior Op Med Cln Tm A Ad) TELE CONSULT [id number] Notes Entered by: JUAN ALBERTO GRIMM 02 Oct 2015 1405 ------- ------- ------- ------- -- Sx - Multipl e sx/Layla blainene/7 [phone] JOE ASH 10/01 Referred for Appointment [address] [place] [address])(W arrior Op Med Cln Tm A Ad) [address] [place] [address])(Associate Partner ecology) TELE CONSULT [id number] Notes Entered by: DIMPLE MALIK 03 Oct 2015 0927 ------- ------- ------- ------- -- Pre-op call for Essure on 10 Oct 2015 FAMILIA THOMPSON 10/[address] [place] [address])(Geoffrey razo gy) [address] [place] [address])(War rior Op Med Cln Tm A Ad) OUTPATIENT [id number] cough, congest ion and ear pain TENZIN HOPE 10/02 Released w/o Limitations [address] [place] [address])(W arrior Op Med Cln Tm A Ad) [address] [place] [address])(Associate Partner ecology) OUTPATIENT [id number] essure procedu re - [phone] ANI CHOI 10/09 Released w/o Limitations [address] [place] [address])(Geoffrey razo gy) [address] [place] [address])(Associate Partner ecology) TELE CONSULT [id number] Notes Entered by: DANIELLE MALIKAH Reynaldo 11 Oct 2015 0859 ------- ------- ------- ------- -- Callba k for Essure on 10 Oct 2015 DIMPLE JOHNSON Geoffrey 10/10 Referred for Appointment [address] [place] [address])( kamalawvdenis gy) [address] [place] [address])(Associate Partner ecology) TELE CONSULT [id number] Notes Entered by: LEVON FLORES 15 Oct 2015 1032 ------- ------- ------- ------- -- Bleedin g after ESSURE procedu re on Oct 15. DIMPLE JOHNSON 10/14 Referred for Appointment [address] [place] [address])(Geoffrey razo gy) [address] [place] [address])(Med ication Refill Clinic) TELE CONSULT [id number] Notes Entered by: Delgado PIERCE 21 Oct 2015 1501 ------- ------- ------- ------- -- Baljit corbett / Gil ne / ZULMA JAMISON 10/[address] [place] [address])(M edicati on Refill Clinic) [address] [place] [address])(Med ication Refill Clinic) TELE CONSULT [id number] Notes Entered by: Vidal YA 17 Dec 2015 1144 ------- ------- ------- ------- -- Mary Mccarty Jan 15 / Gil limon / DENIZ FRANKLIN 12/[address] [place] [address])(M edicati on Refill Clinic) [address] [place] [address])(Associate Partner ecology) OUTPATIENT [id number] [facility] s/p bella - GIANNA STRAUSS 01/06 Released w/o Limitations [employer] [place] [employer] ([facility])(G ynecolo gy) [facility] [employer] [facility] [place] [employer] ([facility])(War rior Op Med Cln Tm A Ad) OUTPATIENT [id number] Med Renewal s 741.401 2 TENZIN HOPE 01/07 Released w/o Limitations [facility] [place] [employer] ([facility])(W arrior Op Med Cln Tm A Ad) [employer] [place] [employer] ([facility])(Associate Partner ecology) OUTPATIENT [id number] possibl e yeast infecti on [phone] AMAYA BAEZ 03/04 Released w/o Limitations [facility] Group [place] [employer] ([facility])(G ynecolo gy) [facility] [employer] ([facility])(Associate Partner ecology) TELE CONSULT [id number] Notes Entered by: KYLE BAEZ 16 Mar 2016 1032 ------- ------- ------- ------- -- Test results LAMAR ALVARADO 03/16 [facility] [place] ([facility])(G ynecolo gy) [facility] [place] [employer] [facility]Sco tt MTF OP) OUTPATIENT [id number] PATRICIA Serna pt 04/10 Released w/o Limitations [facility] [place] ([facility])(S cott KSF OP) [facility] [place] [employer] ([facility])(Associate Partner ecology) OUTPATIENT [id number] repeat hsg - rt side - s/p KARI Pierce 04/14 Released w/o Limitations [employer] [place] [employer] ([facility])(G ynecolo gy) [facility] [place] [employer] ([facility])(Associate Partner ecology) OUTPATIENT [id number] TREY LOREDOI ON - [phone] KARI VANEGAS 04/21 Released w/o Limitations [facility] [place] [employer] ([facility])(G ynecolo gy) [facility] [employer] ([facility])(Fam jesus Med Tm B Non-AD BCC) OUTPATIENT [id number] pressur e headach e - sore throat from drainag e - [id number] DEVIN GIBSON 06/08 Released w/o Limitations [facility])(F amily Med Tm B Non-AD BCC) [facility])(War rior Op Med Cln Tm A Ad) OUTPATIENT [id number] med renewal /referr MILLY Duong 07/14 Released w/o Limitations [facility])(W arrior Op Med Cln Tm A Ad) [address] [place] [address])(War rior Op Med Cln Tm A Ad) OUTPATIENT [id number] sore throat, fever, body aches x2 days / TENZIN HOPE 09/02 Released w/o Limitations [facility])(W arrior Op Med Cln Tm A Ad) [address] [place] [address])(War rior Op Med Cln Tm A Ad) TELE CONSULT [id number] Notes Entered by: GLEN COTO 14 Sep 2016 0946 ------- ------- ------- ------- -- Network Results Radiolo gy 7 DS TENZIN HOPE 09/[address] [place] [address])(W arrior Op Med Cln Tm A Ad) [address] [place] [address])(War rior Op Med Cln Tm A Ad) TELE CONSULT [id number] Notes Entered by: JEN BADILLO 14 Sep 2016 1211 ------- ------- ------- ------- -- Network Results -GASTRO ENTEROL OGY 08/28/16 SDG TENZIN HOPE 09/[address] [place] [address])(W arrior Op Med Cln Tm A Ad) [address] [place] [address])(War rior Op Med Cln Tm A Ad) OUTPATIENT [id number] Knot near R Collar bone [id number] TENZIN HOPE 10/23 Released w/o Limitations [address] [place] [address] Group [facility])(W arrior Op Med Cln Tm A Ad) [address] [place] [address])(War rior Op Med Cln Tm A Ad) OUTPATIENT [id number] dizzy, headach es, ear aches, [id number] MILLY BEGUM 12/14 Released w/o Limitations [address] [place] [address])(W arrior Op Med Cln Tm A Ad) [address] [place] [address])(War rior Op Med Cln Tm A Ad) TELE CONSULT [id number] Notes Entered by: TONY FOFANA 06 Jan 2017 1002 ------- ------- ------- ------- -- Network results Gastroe nterolo gy 12/31/16 MMM TENZIN HOPE 01/[address] [place] [address])(W arrior Op Med Cln Tm A Ad) [address] [place] [address])(Med ication Refill Clinic) TELE CONSULT [id number] Notes Entered by: CRISTI CAREY 12 Jan 2017 1300 ------- ------- ------- ------- -- Med renewal /Kathy gne/618 .741.40 12/clm MILLY BEGUM 01/[address] [place] [address])(Michel bob on Refill Clinic) [address] [place] [address])(War rior Op Med Cln Tm A Ad) OUTPATIENT [id number] Dizzine ss, 741.401 2 PLACIDO MERAZ 02/08 Released w/o Limitations [address] [place] [address])(W arrior Op Med Cln Tm A Ad) [address] [place] [address])(War rior Op Med Cln Tm A Ad) TELE CONSULT [id number] Notes Entered by: JUAN ALBERTO GRIMM 25 Feb 2017 1202 ------- ------- ------- ------- -- Sx - Dizzine ss, R ear pain/Ch sharifagnaster / DARIENRAVIN Ventura 02/[address] [place] [address])(W arrior Op Med Cln Tm A Ad) [address] [place] [address])(Fam jesus Med Tm B Non-AD BCC) TELE CONSULT [id number] Notes Entered by: CARLOS MANUEL CORTES 02 Mar 2017 1615 ------- ------- ------- ------- -- Network Results Emergen cy Room 7 PLACIDO MERAZ 03/[address] [place] [address])(F amily Med Tm B Non-AD BCC) [address] [place] [address])(Med ication Refill Clinic) TELE CONSULT [id number] Notes Entered by: HORTENCIA OLGUIN RET 15 Apr 2017 1145 ------- ------- ------- ------- -- Rx Renewal /Kathy schuler/618 .741.40 12 [facility] WICHO RUCKER 04/[address] [place] [address])(Michel bob on Refill Clinic) [address] [place] [address])(War rior Op Med Cln Tm A Ad) OUTPATIENT [id number] ear problem s 2 months TENZIN HOPE 04/19 Released w/o Limitations [address] [place] [address])(W arrior Op Med Cln Tm A Ad) [address] [place] [address])(War rior Op Med Cln Tm A Ad) TELE CONSULT [id number] Notes Entered by: HORTENCIA OLGUIN RET 29 Jun 2017 0726 ------- ------- ------- ------- -- Sx: Multi/C miguel heredia/ madelin DARIENRAVIN Ventura 06/[address] [place] [address] Group [place] [facility])(W arrior Op Med Cln Tm A Ad) [address] [place] [address] Group [place] [facility])(War rior Op Med Cln Tm A Ad) OUTPATIENT [id number] sore throat, low grade temp 99-100, sinus congest kin sabillon TENZIN HOPE 06/29 Released w/o Limitations [address] [place] [address] Group [place] [facility]W arrior Op Med Cln Tm A Ad) [address] [place] [address] [place] [facility])(War rior Op Med Cln Tm A Ad) TELE CONSULT [id number] Notes Entered by: ELISABET JOHNSON 02 Jul 2017 1226 ------- ------- ------- ------- -- Positiv e Strep Throat Culture TENZIN HOPE 07/[address] [place] [address] [place] [facility]W arrior Op Med Cln Tm A Ad) [address] [place] [address] [place] [facility])(Associate Partner ecology) OUTPATIENT [id number] bloody dischar ge x 1 week - [phone] AMAYA BAEZ 07/20 Released w/o Limitations [address] [place] [address] [place] [facility])(G ynecolo gy) [address] [place] [address] [place] [facility]Associate Partner ecology) TELE CONSULT [id number] Notes Entered by: KYLE BAEZ 10 Aug 2017 1317 ------- ------- ------- ------- -- Test results VERONICA JOHNS 08/[address] [place] [address] [place] [facility]G ynecolo gy) [address] [place] [address] [place] [facility]Fam jesus Med Tm B Non-AD BCC) OUTPATIENT [id number] [facility] F/U-SX Persist Ringing L ear/cou gh/sirisha estion [id number] KOBE SELF 09/08 Released w/o Limitations [address] [place] [address] [place] [facility]F amily Med Tm B Non-AD BCC) [address] [place] [address] [place] [facility])(Med ication Refill Clinic) TELE CONSULT [id number] Notes Entered by: JUAN ALBERTO GRIMM 10 Sep 2017 0839 ------- ------- ------- ------- -- Med Renewal /Kathy gnaster/[phone] DARIENRAVIN Ventura J 09/[address] [place] [address])(Michel bob on Refill Clinic) [address] [place] [address])(War rior Op Med Cln Tm A Ad) TELE CONSULT [id number] Notes Entered by: HORTENCIA OLGUIN RET 13 Sep 2017 1022 ------- ------- ------- ------- -- SX: Left Ear pain/Ch sharifaaster / [facility] DARIENRAVIN Ventura J 09/[address] [place] [address])(W arrior Op Med Cln Tm A Ad) [address] [place] [address])(War rior Op Med Cln Tm A Ad) TELE CONSULT [id number] Notes Entered by: ALEJO BERNAL 23 Sep 2017 1159 ------- ------- ------- ------- -- Network Results Emergen cy Room 09/02/17 CANDI CAROLINA 09/[address] [place] [address])(W arrior Op Med Cln Tm A Ad) [address] [place] [address])(Associate Partner ecology) OUTPATIENT [id number] discuss btl/rem essure coils - [phone] KARI VANEGAS 10/05 Released w/o Limitations [address] [place] [address])(G ynecodenis gy) [address] [place] [address])(Ob/ Associate Partner) TELE CONSULT [id number] YONG FLORES 10/[address] [place] [address])(O b/Associate Partner) [address] [place] [address])(War rior Op Med Cln Tm A Ad) TELE CONSULT [id number] Notes Entered by: Vidal YEUNG 12 Oct 2017 1047 ------- ------- ------- ------- -- Network results Gastroe lisaorianadenis gy 018 TENZIN MIDDLETON Delgado 10/[address] [place] [address])(W arrior Op Med Cln Tm A Ad) [address] [place] [address])(Associate Partner ecology) TELE CONSULT [id number] Notes Entered by: Dilma ALVAREZ 12 Oct 2017 1334 ------- ------- ------- ------- -- Surgery reminde r 13 OCT 2017 NICCI ALVAREZ 10/[address] [place] [address])(Geoffrey razo gy) [address] [place] [address])(Associate Partner ecology) TELE CONSULT [id number] Notes Entered by: SUSAN CONTRERAS 15 Oct 2017 1356 ------- ------- ------- ------- -- Scanned carlotta arenas report into KARI STAHL 10/[address] [place] [address])(G ynecodenis gy) [address] [place] [address])(Med ication Refill Clinic) TELE CONSULT [id number] Notes Entered by: SAILAJA DEVLIN 21 Oct 2017 1004 ------- ------- ------- ------- -- Med Renewal / Gil ne / - sgj WICHO RUCKER 10/[address] [place] [address])(Michel bob on Refill Clinic) [address] [place] [address])(Andrew rior Op Med Cln Tm A Ad) TELE CONSULT [id number] Notes Entered by: KARTHIK SANDOVAL 22 Oct 2017 1018 ------- ------- ------- ------- -- Sx: Cough, congest ion - Gil limon - - tsg* URI SARABIA Delgado 10/22 Other Not Elsewhere Classified [address] [place] [address])(W arrior Op Med Cln Tm A Ad) [address] [place] [address])(Associate Partner ecology) OUTPATIENT [id number] post op - [phone] KARI VANEGAS 10/26 Released w/o Limitations [address] [place] [address])(G ynecolo gy) [address] [place] [address])(War rior Op Med Cln Tm A Ad) TELE CONSULT [id number] Notes Entered by: JOSE BURRIS 01 Nov 2017 1036 ------- ------- ------- ------- -- Med refill / WICHO Molina 11/[address] [place] [address])(W arrior Op Med Cln Tm A Ad) [address] [place] [address])(War rior Op Med Cln Tm A Ad) OUTPATIENT [id number] Feels tired/r un down/we ight gain/giraldo ir/skin very dry [id number] TENZIN OHPE 12/13 Released w/o Limitations [address] [place] [address])(W arrior Op Med Cln Tm A Ad) [address] [place] [address])(War rior Op Med Cln Tm A Ad) TELE CONSULT [id number] Notes Entered by: ELISABET JOHNSON 14 Dec 2017 1050 ------- ------- ------- ------- -- Lab results DARIEN, RAVIN J 12/[address] [place] [address])(W arrior Op Med Cln Tm A Ad) [address] [place] [address])(War rior Op Med Cln Tm A Ad) OUTPATIENT [id number] F/U for low Vitamin D - still feeling tired - decline d Virtual [phone] ANTONIO DIGGS 03/02 Released w/o Limitations [address] [place] [address] [facility] [place])(W arrior Op Med Cln Tm A Ad) [address] [place] [address])(Associate Partner ecology) TELE CONSULT [id number] Notes Entered by: SUSAN CONTRERAS 05 Apr 2018 0733 ------- ------- ------- ------- -- Possibl e yeast infecti on and herpes outbrea k NICCI ALVAREZ 04/05 Referred for Appointment [address] [place] [address])(G ynecolo gy) [address] [place] [address])(War rior Op Med Cln Tm A Ad) TELE CONSULT [id number] Notes Entered by: LUCY PATEL 10 May 2018 1432 ------- ------- ------- ------- -- Med Renewal Request / [place] / - WICHO Wiley 05/10 Referred for Appointment [address] [place] [address])(W arrior Op Med Cln Tm A Ad) [address] [place] [address])(Associate Partner ecology) OUTPATIENT [id number] dISCUSS treatme nt options for herpes outbrea ks [phone] (pt request ) KARI VANEGAS 05/24 Released w/o Limitations [address] [place] [address])(G ybraxtoncodenis gy) [address] [place] [address])(War rior Op Med Cln Tm A Ad) TELE CONSULT [id number] Notes Entered by: JUAN ALBERTO GRIMM 15 Aug 2018 1042 ------- ------- ------- ------- -- 2nd opinion Referra l Request /Yessy heredia/ GEOVANI JARVIS 08/15 Other Not Elsewhere Classified [address] [place] [address])(W arrior Op Med Cln Tm A Ad) [address] [place] [address])(Associate Partner ecology) OUTPATIENT [id number] 0 3 month f/u medicat ion - [phone] KARI VANEGAS 09/12 Released w/o Limitations [address] [place] [address])(G ynecolo gy) [address] [place] [address])(War rior Op Med Cln Tm A Ad) OUTPATIENT [id number] 1 Sinus Drainag e and Pressur e, [phone] 2 ANTONIO DIGGS 11/16 Released w/o Limitations [address] [place] [address])(W arrior Op Med Cln Tm A Ad) [address] [place] [address])(War rior Op Med Cln Tm A Ad) TELE CONSULT [id number] Notes Entered by: PRAKASH BRICENO 16 Nov 2018 1111 ------- ------- ------- ------- -- Pt needs written prescri ption for [facility] pharmac y told her they are out of it MAUDE MORA 11/16 Medication Refill Forwarded [address] [place] [address])(W arrior Op Med Cln Tm A Ad) [...] ASSESS & MGT SRV PROV QUAL NONPHYS TH CARE PRO TO EST PAT,PARENT,GUARD NOT ORIG [...] TO THE CODE FOR PRIMARY PROCEDURE) 11/06 [facility] MEDICAL NUTRITION THERAPY; INITIAL ASSESSMENT AND INTERVENTION, INDIVIDUAL, [id number] WITH THE PATIENT, EACH 15 MINUTES 11/02 [...] FOR CONSULTATION ONLY,NOT FOR CONT CARE)] 10/26 [facility] SUBSEQ CARE VISIT () [EXCLS:PATIENTS WHO ARE SEEN FOR A CONDITION UNREL TO / CARE (EG,AN UP RESPIR INFECT;PATIENTS SEEN FOR CONSULTATION ONLY,NOT FOR CONT CARE)] 10/19 DoD PSYCHOTHERAPY, 60 MINUTES WITH PATIENT 10/17 DoD SUBSEQ CARE VISIT () [EXCLS:PATIENTS WHO ARE SEEN FOR A CONDITION UNREL TO / CARE (EG,AN UP RESPIR INFECT;PATIENTS SEEN FOR CONSULTATION ONLY,NOT FOR CONT CARE)] 10/13 [facility] SUBSEQ CARE VISIT () [EXCLS:PATIENTS WHO ARE SEEN FOR A CONDITION UNREL TO / CARE (EG,AN UP RESPIR INFECT;PATIENTS SEEN FOR CONSULTATION ONLY,NOT FOR CONT CARE)] 10/05 DoD FAMILY PSYCHOTHERAPY (CONJOINT PSYCHOTHERAPY) (WITH PATIENT PRESENT), 50 MINUTES 10/04 DoD PSYCHOTHERAPY, 60 MINUTES WITH PATIENT 09/28 DoD SUBSEQ CARE VISIT () [EXCLS:PATIENTS WHO ARE SEEN FOR A CONDITION UNREL TO / CARE (EG,AN UP RESPIR INFECT;PATIENTS SEEN FOR CONSULTATION ONLY,NOT FOR CONT CARE)] 09/25 [facility] SUBSEQ CARE VISIT () [EXCLS:PATIENTS WHO ARE SEEN FOR A CONDITION UNREL TO / CARE (EG,AN UP RESPIR INFECT;PATIENTS SEEN FOR CONSULTATION ONLY,NOT FOR CONT CARE)] 09/21 DoD PSYCHOTHERAPY, 60 MINUTES WITH PATIENT 09/21 DoD SUBSEQ CARE VISIT () [EXCLS:PATIENTS WHO ARE SEEN FOR A CONDITION UNREL TO / CARE (EG,AN UP RESPIR INFECT;PATIENTS SEEN FOR CONSULTATION ONLY,NOT FOR CONT CARE)] 09/15 [facility] PSYCHIATRIC DIAGNOSTIC EVALUATION 09/14 DoD SUBSEQ CARE [...] FOR CONSULTATION ONLY,NOT FOR CONT CARE)] 07/06 [facility] ULTRASOUND, UTERUS, REAL TIME WITH [...] OUTPATIENT FACILITY, APPROXIMATELY 20 TO 30 MINUTES [id number] WITH THE PATIENT 01/31 [facility] INDIVIDUAL PSYCHOTHERAPY, INSIGHT ORIENTED, BEHAVIOR MODIFYING AND/OR SUPPORTIVE, IN AN OFFICE OR OUTPATIENT FACILITY, APPROXIMATELY 45 TO 50 MINUTES [id number] WITH THE PATIENT 01/10 [facility] PSYCHIATRIC DIAGNOSTIC INTERVIEW EXAMINATION 01/06 [facility] URINE TEST, BY VISUAL COLOR COMPARISON METHODS 08/05 [facility] INFECTIOUS AGENT ANTIGEN DETECTION BY [...] DoD REMOVAL OF INTRAUTERINE DEVICE (IUD) 01/14 [facility] DETERMINATION OF REFRACTIVE STATE 12/31 DoD TELE ASSESS & MGT SRV PROV QUAL NONPHYS HLTH CARE PRO TO EST PAT,PARENT,GUARD NOT ORIG REL ASSESS & MGT SRV PROV W/IN PREV 7 DAYS NOR LEAD ASSESS & MGT SRV/PX W/IN NXT 24 HR/SOON APT;5-10 MIN MED DIS 12/19 DoD INFLUENZA VIRUS VACCINE, TRIVALENT, LIVE (LAIV3), FOR INTRANASAL USE 08/29 [facility] INSERTION OF INTRAUTERINE DEVICE (IUD) 08/20 DoD TELE ASSESS & MGT SRV PROV QUAL NONPHYS HLTH CARE PRO TO EST PAT,PARENT,GUARD NOT ORIG REL ASSESS & MGT SRV PROV W/IN PREV 7 DAYS NOR LEAD ASSESS & MGT SRV/PX W/IN NXT 24 HR/SOON APT;5-10 MIN MED DIS 08/14 [facility] SCREENING PAPANICOLAOU SMEAR; OBTAINING, PREPARING AND CONVEYANCE OF CERVICAL OR VAGINAL SMEAR TO LABORATORY 08/05 [facility] SUBSEQ CARE VISIT () [EXCLS:PATIENTS WHO ARE SEEN FOR A CONDITION UNREL TO / CARE (EG,AN UP RESPIR INFECT;PATIENTS SEEN FOR CONSULTATION ONLY,NOT FOR CONT CARE)] 06/18 [facility] SUBSEQ CARE VISIT () [EXCLS:PATIENTS WHO ARE SEEN FOR A CONDITION UNREL TO / CARE (EG,AN UP RESPIR INFECT;PATIENTS SEEN FOR CONSULTATION ONLY,NOT FOR CONT CARE)] 06/11 [facility] SUBSEQ CARE VISIT () [EXCLS:PATIENTS WHO ARE SEEN FOR A CONDITION UNREL TO / CARE (EG,AN UP RESPIR INFECT;PATIENTS SEEN FOR CONSULTATION ONLY,NOT FOR CONT CARE)] 06/03 [facility] INFLUENZA VIRUS VACCINE, TRIVALENT (IIV3), SPLIT VIRUS, 0.5 ML DOSAGE, FOR INTRAMUSCULAR USE 05/16 [facility] SUBSEQ CARE VISIT () [EXCLS:PATIENTS WHO ARE SEEN FOR A CONDITION UNREL TO / CARE (EG,AN UP RESPIR INFECT;PATIENTS SEEN FOR CONSULTATION ONLY,NOT FOR CONT CARE)] 05/16 [facility] SUBSEQ CARE VISIT () [EXCLS:PATIENTS WHO ARE SEEN FOR A CONDITION UNREL TO / CARE (EG,AN UP RESPIR INFECT;PATIENTS SEEN FOR CONSULTATION ONLY,NOT FOR CONT CARE)] 04/16 [facility] SUBSEQ CARE VISIT () [EXCLS:PATIENTS WHO ARE SEEN FOR A CONDITION UNREL TO / CARE (EG,AN UP RESPIR INFECT;PATIENTS SEEN FOR CONSULTATION ONLY,NOT FOR CONT CARE)] 03/25 [facility] SUBSEQ CARE VISIT () [EXCLS:PATIENTS WHO ARE SEEN FOR A CONDITION UNREL TO / CARE (EG,AN UP RESPIR INFECT;PATIENTS SEEN FOR CONSULTATION ONLY,NOT FOR CONT CARE)] 02/20 [facility] SUBSEQ CARE VISIT () [EXCLS:PATIENTS WHO ARE SEEN FOR A CONDITION UNREL TO / CARE (EG,AN UP RESPIR INFECT;PATIENTS SEEN FOR CONSULTATION ONLY,NOT FOR CONT CARE)] 01/23 [facility] INDIVIDUAL PSYCHOTHERAPY, INSIGHT ORIENTED, BEHAVIOR MODIFYING AND/OR SUPPORTIVE, IN AN OFFICE OR OUTPATIENT FACILITY, APPROXIMATELY 20 TO 30 MINUTES [id number] WITH THE PATIENT 01/02 [facility] SUBSEQ CARE VISIT () [EXCLS:PATIENTS WHO ARE SEEN FOR A CONDITION UNREL TO / CARE (EG,AN UP RESPIR INFECT;PATIENTS SEEN FOR CONSULTATION ONLY,NOT FOR CONT CARE)] 01/02 [facility] URINE TEST, BY VISUAL COLOR COMPARISON METHODS 11/02 [facility] TOBACCO USE CESSATION INTERVENTION, COUNSELING (COPD, CAP, CAD, ASTHMA) (DM) (PV) 10/03 [facility] SCREENING PAPANICOLAOU SMEAR; OBTAINING, PREPARING AND CONVEYANCE OF CERVICAL OR VAGINAL SMEAR TO LABORATORY 09/18 [facility] HEPATITIS B VACCINE (HEPB), ADULT DOSAGE, 3 DOSE SCHEDULE, FOR INTRAMUSCULAR USE 07/05 [facility] HEPATITIS B VACCINE (HEPB), ADULT DOSAGE, 3 DOSE SCHEDULE, FOR INTRAMUSCULAR USE 04/04 [facility] Non-Physician Phone Call To Patient/Provider Brief (5-10min) Non-Physician Phone Call To Patient/Provider Brief (5-10min) [id number] 11/16 MAUDE MORA [facility] Non-Physician Phone Call To Patient/Provider Brief (5-10min) Non-Physician Phone Call To Patient/Provider Brief (5-10min) 36847 08/15 GEOVANI JARVIS [facility] Disease management program, follow-up/christofer e ment 05/17 WICHO RUCKER [facility] Non-Physician Phone Call To Patient/Provider Brief (5-10min) Non-Physician Phone Call To Patient/Provider Brief (5-10min) 11523 04/05 NICCI ALVAREZ [facility] Disease management program, follow-up/christofer e ment 11/01 TENZIN HOPE DoD Disease management program, follow-up/christofer e ment 10/22 CANDI ARNOLD [facility] Non-Physician Phone Call To Patient/Provider Brief (5-10min) Non-Physician Phone Call To Patient/Provider Brief (5-10min) 99927 10/22 URI SARABIA [facility] Non-Physician Phone Call To Patient/Provider Brief (5-10min) Non-Physician Phone Call To Patient/Provider Brief (5-10min) 17863 10/12 ANTONIO NICCI QIAN [facility] Non-Physician Phone Call To Patient/Provider Brief (5-10min) Non-Physician Phone Call To Patient/Provider Brief (5-10min) 15629 09/13 RAVIN LEDEZMA [facility] Non-Physician Phone Call To Patient/Provider Brief (5-10min) Non-Physician Phone Call To Patient/Provider Brief (5-10min) 02529 09/10 RAVIN LEDEZMA [facility] Vaginal Wet [place] Vaginal Wet [place] 90239 07/20 AMAYA BAEZ [facility] Non-Physician Phone Call To Patient/Provider Brief (5-10min) Non-Physician Phone Call To Patient/Provider Brief (5-10min) 38470 06/29 RAVIN LEDEZMA [facility] Disease management program, follow-up/christofer e ment 04/16 PLACIDO MACHUCA [facility] Non-Physician Phone Call To Patient/Provider Brief (5-10min) Non-Physician Phone Call To Patient/Provider Brief (5-10min) 12442 02/25 RAVIN LEDEZMA [facility] Psychiatric Evaluation Review of Records and Reports Psychiatric Evaluation Review of Records and Reports 85776 09/22 ZACHARY AVERY [facility] Gynecologic Services Intrauterine Device (IUD) Insertion Gynecologic Services Intrauterine Device (IUD) Insertion [id number] 04/21 KARI VANEGAS [facility] Hysterosalpingograp hy With Catheter Contrast Injection Hysterosalpingogra phy With Catheter Contrast Injection 76497 04/14 KARI VANEGAS Procedure: A final timeout [...] was informed of these results. No complications. [facility] Screening papanicolaou smear; obtaining, preparing and conveyance of cervical or vaginal smear to laboratory 03/04 AMAYA BAEZ [facility] Vaginal Wet [place] Vaginal Wet [place] 12655 03/04 AMAYA BAEZ [facility] Hysterosalpingograp hy With Catheter Contrast Injection Hysterosalpingogra phy With Catheter Contrast Injection 61240 01/06 GIANNA STRAUSS [facility] Psychoactive Medication Management Psychoactive Medication Management [id number] 11/28 ZACHARY AVERY [facility] Non-Physician Phone Call To Patient/Provider Brief (5-10min) Non-Physician Phone Call To Patient/Provider Brief (5-10min) 39314 10/14 DIMPLE JOHNSON [facility] Non-Physician Phone Call To Patient/Provider Brief (5-10min) Non-Physician Phone Call To Patient/Provider Brief (5-10min) 14245 10/10 DIMPLE JOHNSON [facility] Conscious Sedation By Dr Performing Service 5 Yrs Or Older Conscious Sedation By Dr Performing Service 5 Yrs Or Older 56490 10/09 PRIYA CHOI [facility] Non-Physician Phone Call To Patient/Provider Brief (5-10min) Non-Physician Phone Call To Patient/Provider Brief (5-10min) 68100 10/03 FAMILIA THOMPSON [facility] Non-Physician Phone Call To Patient/Provider Brief (5-10min) Non-Physician Phone Call To Patient/Provider Brief (5-10min) 78292 10/01 JOE ASH [facility] Non-Physician Phone Call To Patient/Provider Brief (5-10min) Non-Physician Phone Call To Patient/Provider Brief (5-10min) 67941 08/26 JOE ASH [facility] Non-Physician Phone Call To Patient/Provider Brief (5-10min) Non-Physician Phone Call To Patient/Provider Brief (5-10min) 92882 08/22 MANN COLON [facility] Psych Ther Indiv Interact Appr 20-30 Min W/ Med Eval Manage 06/20 ZACHARY AVERY [facility] Psych Ther Indiv Interact Appr 45-50 Min W/ Med Eval Manage 05/17 ZACHARY AVERY [facility] Non-Physician Phone Call To Patient/Provider Brief (5-10min) Non-Physician Phone Call To Patient/Provider Brief (5-10min) 53289 04/26 MANN COLON [facility] Psych Ther Indiv Interact Appr 45-50 Min W/ Med Eval Manage 04/16 ZACHARY AVERY [facility] Vaginal Wet [place] Vaginal Wet [place] 59070 04/11 AMAYA BAEZ [facility] Non-Physician Phone Call To Patient/Provider Brief (5-10min) Non-Physician Phone Call To Patient/Provider Brief (5-10min) 57428 04/10 ANANDA WILLAMS [facility] Psych Ther Indiv Interact Appr 45-50 Min W/ Med Eval Manage 02/18 ZACHARY AVERY [facility] Psych Ther Indiv Interact Appr 45-50 Min W/ Med Eval Manage 01/01 ZACHARY AVERY [facility] Psych Ther Indiv Interact Appr 45-50 Min W/ Med Eval Manage 11/19 ZACHARY AVERY [facility] Psych Ther Indiv Interact Appr 45-50 Min W/ Med Eval Manage 10/23 ZACHARY AVERY [facility] Non-Physician Phone Call To Patient/Provider Brief (5-10min) Non-Physician Phone Call To Patient/Provider Brief (5-10min) 96976 09/21 MANN COLON [facility] Psych Ther Indiv Interact Appr 45-50 Min W/ Med Eval Manage 09/06 ZACHARY AVERY [facility] Psych Ther Indiv Interact Appr 45-50 Min W/ Med Eval Manage 07/24 ZACHARY AVERY [facility] OB Services Antepartum Care Only Subsequent Single Visit OB Services Antepartum Care Only Subsequent Single Visit [id number] 06/30 CLEMENTINA DAVILA [facility] Psychiatric Therapy Individual Approximately 45-50 Minutes 06/21 CATHY TOMAS [facility] Test Test 93985 06/18 LUISANA DEVLIN [facility] Gynecologic Services Intrauterine Device (IUD) Insertion Gynecologic Services Intrauterine Device (IUD) Insertion [id number] 06/18 LUISANA DEVLIN [facility] Psychiatric Therapy Individual Approximately 45-50 Minutes 06/04 CATHY TOMAS Vaginal Wet [place] Vaginal Wet [place] 70180 06/04 LUISANA DEVLIN [facility] Social Work Individual Outpatient Counseling 45-50 Minutes 05/17 CATHY TOMAS Psychiatric Therapy Individual Approximately 45-50 Minutes 04/25 CATHY TOMAS Gynecologic Services Diaphragm Fitting With Instructions Gynecologic Services Diaphragm Fitting With Instructions 61118 02/20 ALYSSA COLÓN [facility] Social Work Individual Outpatient Counseling 45-50 Minutes 01/30 CATHY TOMAS [facility] OB Services Antepartum Care Only Subsequent Single Visit OB Services Antepartum Care Only Subsequent Single Visit 0502F 11/27 CLEMENTINA DAVILA DoD OB Services Antepartum Care Only Subsequent Single Visit OB Services Antepartum Care Only Subsequent Single Visit 0502F 11/14 GUERRERO DWYER [facility] Non-Physician Phone Call To Patient/Provider Brief (5-10min) Non-Physician Phone Call To Patient/Provider Brief (5-10min) 43849 11/08 GAYE DECKER [facility] Medical Nutrition Therapy Initial A e ment, Intervention Medical Nutrition Therapy Initial Assessment, Intervention 19000 11/03 REYES LOPEZ [facility] Non-Physician Phone Call To Patient/Provider Brief (5-10min) Non-Physician Phone Call To Patient/Provider Brief (5-10min) 12777 10/30 GAYE DECKER [facility] OB Services Antepartum [...] Subsequent Single Visit 0502F 09/25 GUERRERO DWYER [facility] OB Services Antepartum Care Only Subsequent Single Visit OB Services Antepartum Care Only Subsequent Single Visit 0502F 09/21 THELMA HA Delgado Do[facility] OB Services Antepartum Care Only Subsequent Single Visit OB Services Antepartum Care Only Subsequent Single Visit 0502F 09/15 ERMGUERRERO SAN B [facility] Psychiatric Evaluation Psychiatric Evaluation 01051 09/15 TOMASBYRONCATHY DoD OB Services Antepartum Care [...] Obstetric Limited Evaluation Ultrasound Obstetric Limited Evaluation 51031 05/25 ERMZACK SANILY B DoD OB Services Antepartum Care Only Subsequent Single Visit OB Services Antepartum Care Only Subsequent Single Visit 0502F 05/25 ERMZACK SANILY B DoD Ultrasound Trans[place] [address] 05/05 SLACLEMENTINA Drake K DoD OB Services Antepartum Care Only Subsequent Single Visit OB Services Antepartum Care Only Subsequent Single Visit 0502F 05/05 LEATHA DAVILACY K DoD Ultrasound [place] [address] 05/02 SLAT CLEMENTINA K DoD OB Services Antepartum Care Only First Visit, With Report OB Services Antepartum Care Only First Visit, With Report 0500F 05/02 SLALEATHA DrakeCY K [facility] Non-Physician Phone Call To Patient/Provider Brief (5-10min) Non-Physician Phone Call To Patient/Provider Brief (5-10min) 59472 04/28 EB DOMINGO [facility] Non-Physician Phone Call To Patient/Provider Brief (5-10min) Non-Physician Phone Call To Patient/Provider Brief (5-10min) 35472 03/09 MICHAELFARHADY [facility] Non-Physician Phone Call To Patient/Provider Brief (5-10min) Non-Physician Phone Call To Patient/Provider Brief (5-10min) 79731 03/03 MICHAELFARHADY [facility] Electrocardiogram Electrocardiogram 81779 02/21 RAHUL SCHMITT [facility] Psychiatric Evaluation Review of Records and Reports Psychiatric Evaluation Review of Records and Reports 48498 11/14 WICHO SOMMERS [facility] Non-Physician Phone Call To Pt/Provider Intermed (11-20 min) Non-Physician Phone Call To Pt/Provider Intermed (11-20 min) 21611 06/22 JE WHITFIELD [facility] Psychiatric Therapy Individual Approximately 20-30 Minutes Psychiatric Therapy Individual Approximately 20-30 Minutes 80250 01/31 WICHO SOMMERS [facility] Social Work Individual Outpatient Counseling 45-50 Minutes Social Work Individual Outpatient Counseling 45-50 Minutes 35335 01/10 SALOMÓN OLIVAS [facility] Psychiatric Evaluation Comprehensive Examination Psychiatric Evaluation Comprehensive Examination 53759 01/06 KEVIN THURMAN [facility] Test Test 35702 08/05 KELSIE INIGUEZ [facility] Rapid Antigen Identification Streptococcus Group A Beta Hemolytic Rapid Antigen Identification Streptococcus Group A Beta Hemolytic 38546 08/05 MONI BOSS [facility] Non-Physician Phone Call To Patient/Provider Brief (5-10min) Non-Physician Phone Call To Patient/Provider Brief (5-10min) 19980 03/31 GENA FRANKS [facility] Gynecologic Services Intrauterine Device (IUD) Removal Gynecologic Services Intrauterine Device (IUD) Removal 42825 01/22 BRIE CRUZ [facility] Determination Of Refractive State Determination Of Refractive State 15689 12/31 LUZ MUHAMMAD [facility] Ophthalmological New Patient Start Comprehensive Care Ophthalmological New Patient Start Comprehensive Care 93764 12/31 LUZ MUHAMMAD [facility] Non-Physician Phone Call To Patient/Provider Brief (5-10min) Non-Physician Phone Call To Patient/Provider Brief (5-10min) 60569 12/19 VASU CARPENTER [facility] Influenza Virus Vaccine Live Intranasal 08/29 LEXY BRICENO [facility] Immunization Administration One Vaccine Immunization Administration One Vaccine 54546 08/29 LEXY BRICENO [facility] Gynecologic Services Intrauterine Device (IUD) Insertion Gynecologic Services Intrauterine Device (IUD) Insertion [id number] 08/20 BRIE CRUZ [facility] Non-Physician Phone Call To Patient/Provider Brief (5-10min) Non-Physician Phone Call To Patient/Provider Brief (5-10min) 52972 08/14 ALDO DAY [facility] Obstetrical Services Care Visit Obstetrical Services Care Visit [id number] 08/06 BRIE CRUZ [facility] OB Services Antepartum Care Only Subsequent Single Visit OB Services Antepartum Care Only Subsequent Single Visit [id number] 06/18 JE ARIZA [facility] Vaginal FEDERICO Prep Vaginal FEDERICO Prep [id number] 06/11 BRIE CRUZ [facility] Vaginal Wet [place] Vaginal [place] [id number] 06/11 BRIE CRUZ [facility] OB Services Antepartum Care Only Subsequent Single Visit OB Services Antepartum Care Only Subsequent Single Visit [id number] 06/11 BRIE CRUZ [facility] OB Services Antepartum Care Only Subsequent Single Visit OB Services Antepartum Care Only Subsequent Single Visit [id number] 06/03 JE ARIZA [facility] Immunization Administration One Vaccine Immunization Administration One Vaccine 80747 05/16 AL TALBOT [facility] Influenza Split Virus Vaccine Age 3+ Years Intramuscular 05/16 AL TALBOT [facility] OB Services Antepartum Care Only Subsequent Single Visit OB Services Antepartum Care Only Subsequent Single Visit [id number] 04/16 CESARIO JEFFERY [facility] OB Services Antepartum Care Only Subsequent Single Visit OB Services Antepartum Care Only Subsequent Single Visit [id number] 03/25 MARGARETTE TABARES [facility] OB Services Antepartum Care Only Subsequent Single Visit OB Services Antepartum Care Only Subsequent Single Visit [id number] 02/20 ZACK TOWNSEND [facility] OB Services Antepartum Care Only Subsequent Single Visit OB Services Antepartum Care Only Subsequent Single Visit [id number] 01/23 JE LUNA [facility] Psychiatric Therapy Individual Approximately 20-30 Minutes Psychiatric Therapy Individual Approximately 20-30 Minutes [id number] 01/02 YARITZA ORTIZ [facility] OB Services Antepartum Care Only Subsequent Single Visit OB Services Antepartum Care Only Subsequent Single Visit 0502F 01/02 JE LUNA [facility] Intervention And Counseling On Ce ation Of Tobacco Use Intervention And Counseling On Cessation Of Tobacco Use 4000F 10/03 MARGARETTE TABARES [facility] Screening papanicolaou smear; obtaining, preparing and conveyance of cervical or vaginal smear to laboratory 09/18 JODIEWANDA Narvaez [facility] Hepatitis B Vaccine (Active); 20 Years and Above 07/05 ADELINE GU [facility] Immunization Administration One Vaccine Immunization Administration One Vaccine 62605 07/05 ADELINE GU [facility] Hepatitis B Vaccine (Active); 20 Years and Above 04/04 ILA GARCIA DoD Immunization Administration One Vaccine Immunization Administration One Vaccine 35558 04/04 ILA GARCIA [facility] No data available for this section Ambulato ry Pharmacy Social History Combined list of available smoking, tobacco, and other social history from [facility] facilities. Social History Type Response Date Comment Sourc e This section is an empty soc ial history section. [facility] Sexual Orientation Ambula tory Pharmacy Gender identity [...] Plan No data available for this section 02/08/2025 Ambulatory Pharmacy Functional Status Combined list of recent functional and cognitive assessments recorded at [facility] Functional Dewitt Measurement (FIM) Scale: 1 = Total Assistance (Subject = 0% +), 2 = Maximal Assistance (Subject = 25% +), 3 = Moderate Assistance (Subject = 50% +), 4 = Minimal Assistance (Subject = 75% +), 5 = Supervision, 6 = Modified Dewitt (Device), 7 = Complete Dewitt (Timely, Safely). Assessment Date/Time Source Assessment Type Assessment Skill Assessment Score Assessment Details No data available for this section
--- NOTE | 2025-02-07 21:21 | ED_ITS ---
HPI - General Adult General Chief complaint: Recheck/Abnormal Lab/Rx Stated complaint: hysterectomy 2 weeks ago, puss in discharge Time Seen by Provider: 02/07/25 20:34 History of Present Illness HPI narrative: Patient is a 49-year-old female who presents to the emergency department this evening complaining of vaginal discharge that is blood tinged. States that she has been having the symptoms since her hysterectomy 2 weeks ago but now started to have dysuria and abdominal cramping radiates to her bilateral flanks that she was concerned of a kidney infection/UTI. Patient hysterectomy was performed by Dr. Betancourt. Denies any fevers or chills, nausea or vomiting. Patient was informed to refrain from intercourse for 6 weeks which she has been following. Related Data Home Medications ?Medication ?Instructions ?Recorded ?Confirmed ?Last Taken ?Type amitriptyline 25 mg tablet 25 mg PO HS 12/04/21 01/22/25 12/06/24 History albuterol sulfate 90 mcg/actuation 2 puff inhalation Q6H PRN 10/05/24 01/22/25 Unknown History aerosol inhaler shortness of breath or wheezing hydrocodone 5 mg-acetaminophen 325 1 tablet PO Q6H PRN pain 12/05/24 01/22/25 Unknown History mg tablet cholecalciferol (vitamin D3) 25 50 mcg PO DAILY 01/22/25 01/22/25 Unknown History mcg (1,000 unit) capsule (Vitamin D3) Allergies Allergy/AdvReac Type Severity Reaction Status Date / Time escitalopram (From Lexapro) Allergy Mild Unknown Verified 01/22/25 15:51 metoclopramide (From Reglan) AdvReac Mild Unknown Verified 01/22/25 15:51 sertraline AdvReac Unknown INTENSIFIES Verified 01/22/25 15:51 ANXIETY Review of Systems 2 Review of Systems: All systems are reviewed and are negative unless stated otherwise in the HPI. [facility] Past Medical History Medical History Anxiety Seasonal asthma Vajgizx-Oiehb-Lshxi disease Obesity Dyspepsia Enterocolitis Belching Gas bloat syndrome Irritable bowel syndrome with diarrhea History of migraine Irritable bowel syndrome Surgical History Surgical History No pertinent past surgical history Social History Social History Years smoked: 26 Smoking status: Current every day smoker Tobacco type: cigarettes and e-cigarettes/vaping Additional smoking assessment comments: Vapes inside, smokes outside. Alcohol intake: current Substance use type: marijuana Other substance usage details: Every now and then for sleep Living arrangements: with family Spiritual care concerns: No Exam 2 Narrative: General: Alert, awake, afebrile, in no acute distress. HEENT: PERRL, no rhinorrhea, no post nasal drip, oropharynx clear. Neck: Trachea midline, no JVD, no lymphadenopathy. Cardiovascular: Regular rate and rhythm, no murmurs, rubs or gallops, no peripheral edema. Respiratory: Clear to auscultation bilaterally, no tachypnea, no wheezing, no rhonchi, no rubs, no respiratory distress. Abdomen: Soft, nontender, nondistended, no rebound, no guarding, no peritoneal signs. Musculoskeletal: No joint swelling or deformity, normal muscle tone. Skin: No rashes or petechia, no signs of infection. Psychiatric: Alert and oriented, normal behavior and judgment for situation. Neurological: Alert and oriented to person, place, and time. Follows all commands. No focal deficits, speech is clear and fluent. Course Vital Signs Vital signs: Vital Signs Temperature 98 F 02/07/25 18:35 Pulse Rate 92 02/07/25 18:35 Respiratory Rate 16 02/07/25 18:35 Blood Pressure 123/61 02/07/25 18:35 Pulse Oximetry 99 02/07/25 18:35 Oxygen Delivery Room Air 02/07/25 18:35 Temperature 98.1 F 02/07/25 20:34 Pulse Rate 72 02/07/25 20:34 Respiratory Rate 12 02/07/25 20:34 Blood Pressure 131/71 02/07/25 20:34 Pulse Oximetry 98 02/07/25 20:34 Oxygen Delivery Room Air 02/07/25 20:34 Medical Decision Making MDM Narrative Medical decision making narrative: The patient was evaluated by myself in the emergency department. History is obtained from patient who is an independent historian and physical exam was performed. External medical records were reviewed at this time. IV was established and pertinent tests were ordered. Laboratory results obtained revealing no acute process. Urinalysis revealed 1+ leuk esterases and 6-10 white blood cells. Given that the patient is symptomatic she was administered her 1st dose of antibiotic 1 g of IV Rocephin in the emergency department and informed that she will be sent home on an oral antibiotic. Patient was also administered 15 mg of IV Toradol and 1 L IV fluid bolus with normal saline. Imaging studies obtained included CT abdomen pelvis with IV contrast which was independently interpreted by me revealing: IMPRESSION: 1. No evidence of appendicitis, diverticulitis or intestinal obstruction. 2. Status post hysterectomy. Right small ovarian follicle. 3. 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 Differential diagnosis considerations include surgical complication from recent hysterectomy, STD, yeast infection, urinary tract infection. Comorbidities impacting this visit include recent hysterectomy 2 weeks ago. I have evaluated and discussed social determinants of health with the patient that could potentially impact subsequent diagnosis and treatment plans. On repeat assessment of the patient, reevaluation revealed that the patient is doing well and is in no acute distress. Patient symptoms have improved since she arrived to our emergency department. Repeat vital signs were all reviewed and noted to be stable. Differential diagnosis and treatment plan were discussed with the patient at bedside. Patient agrees with discussion and after shared medical decision making agrees with [admission/discharge]. All questions were answered to the patient's satisfaction. Patient will follow up with her OBGYN in 3-5 days. Script for cephalexin was sent to patient's pharmacy to take as prescribed for the next 5 days. Patient was provided with strict return precautions and instructed to return to the emergency department if any new or worsening symptoms develop. The patient was discharged in stable condition. Vital Signs Vital Signs: Vital Signs Temperature 98 F 02/07/25 18:35 Pulse Rate 92 02/07/25 18:35 Respiratory Rate 16 02/07/25 18:35 Blood Pressure 123/61 02/07/25 18:35 Pulse Oximetry 99 02/07/25 18:35 Oxygen Delivery Room Air 02/07/25 18:35 Temperature 98.1 F 02/07/25 20:34 Pulse Rate 72 02/07/25 20:34 Respiratory Rate 12 02/07/25 20:34 Blood Pressure 131/71 02/07/25 20:34 Pulse Oximetry 98 02/07/25 20:34 Oxygen Delivery Room Air 02/07/25 20:34 Lab Data 02/07/25 20:14 02/07/25 20:14 Labs: Lab Results 02/07/25 Range/Units 20:14 WBC 10.4 H (4.5-10.0) K/mm3 RBC 5.03 (4.2-5.4) M/mm3 Hgb 14.8 (12.0-15.0) g/dL Hct 45.3 (37.0-47.0) % MCV 90.1 (80-100) fl MCH 29.4 (26-34) pg MCHC 32.7 (32-36) g/dl RDW 13.1 (11.5-14.5) % Plt Count 414 H (150-375) k/mm3 MPV 8.8 (7.4-10.4) fl Immature Gran % (Auto) 0.5 (0-0.5) % Neut % (Auto) 64.2 (45.5-73.1) % Lymph % (Auto) 30.3 (18.3-44.2) % Perkins % (Auto) 3.9 (2.6-8.5) % Eos % (Auto) 0.7 (0-4.4) % Baso % (Auto) 0.4 (0.2-1.2) % Lymph # (Auto) 3.14 (0.9-3.2) K/mm3 Perkins # (Auto) 0.4 (0.1-0.6) K/mm3 Eos # (Auto) 0.1 (0-0.3) K/mm3 Baso # (Auto) 0.0 (0.0-0.1) K/mm3 Abs Immat Gran (auto) 0.05 H (0.00-0.031) K/mm3 Absolute Neuts (auto) 6.7 (1.3-6.7) K/mm3 Absolute Nucleated RBC 0.000 (0.0-0.012) K/mm3 Nucleated RBC % 0.0 (0.0-0.2) % Sodium 140 (137-145) mmol/L Potassium 3.9 (3.4-5.0) mmol/L Chloride 104 (98-107) mmol/L Carbon Dioxide 28 (22-30) mmol/L Anion Gap 8 (4-12) mmol/L BUN 7 (7-17) mg/dL Creatinine 0.69 L (0.7-1.0) mg/dL Estim Creat Clear Calc 69 ml/min Estimated GFR > 60 (59 - ) Glucose 97 (65-110) mg/dL Calcium 9.6 (8.4-10.2) mg/dL Magnesium 2.0 (1.6-2.3) mg/dL Total Bilirubin 0.2 (0.2-1.3) mg/dL AST 31 (14-36) U/L ALT 33 (6-35) U/L Alkaline Phosphatase 80 (38-126) U/L Total Protein 8.1 (6.3-8.2) g/dL Albumin 4.7 (3.5-5.1) g/dL Lipase 35 (23-300) U/L Serum HCG, Qual Negative Urine Color Yellow (Yellow) Urine Appearance Clear (Clear) Urine pH 6.5 (5.0-9.0) Ur Specific [place] 1.005 (1.001-1.035) Urine Protein Negative (Negative) mg/dL Urine Glucose (UA) Negative (Negative) mg/dL Urine Ketones Negative (Negative) mg/dL Ur Blood (Man) Trace (Negative) Urine Nitrate Negative (Negative) Urine Bilirubin Negative (Negative) Urine Urobilinogen 0.2 (<2.0) mg/dL Leukocyte Esterase Rfl 1+ H (Negative) LISBETH/UL Urine RBC 0-2 (0-2) /hpf Urine WBC 6-10 H (0-3) /hpf Ur Squamous Epith Cells Occasional (Few) /hpf Urine Bacteria None seen /hpf Urine Casts 0-2 Discharge Plan Discharge Clinical Impression: Abdominal pain, UTI (urinary tract infection) Patient Disposition: Home Condition: Improved Instructions: Antibiotic Form, Urinary Tract Infection in Women (DC), Abdominal Pain (ED) Additional Instructions: Please follow-up with your OBGYN within the next 3-5 days. Return to the ED if any new or worsening symptoms develop. Take the prescribed antibiotic as instructed for your UTI. Patient Language: Turkmen Prescriptions: New cephalexin 500 mg capsule 500 mg PO Q12H 5 Days Qty: 10 0RF No Action amitriptyline 25 mg tablet 25 mg PO HS albuterol sulfate 90 mcg/actuation HFA aerosol inhaler 2 puff INHALATION Q6H PRN (Reason: shortness of breath or wheezing) hydrocodone-acetaminophen 5-325 mg tablet 1 tablet PO Q6H PRN (Reason: pain) cholecalciferol (vitamin D3) [Vitamin D3] 25 mcg (1,000 unit) capsule 50 mcg PO DAILY hydrocodone-acetaminophen 5-325 mg tablet 1 - 2 tablet PO Q6H PRN (Reason: pain) Qty: 25 0RF ibuprofen 600 mg tablet 600 mg PO TID Qty: 20 0RF Follow-up/Referrals: Chidi Betancourt MD [Physician] - 3 Days Zeinab,Sandie Gr MD [Primary Care Provider] - Time of Disposition: 23:49
[2025-02-08 00:01] VITALS: PULSE 73; RESP 17; O2SAT 98
[2025-02-08 00:15] VITALS: BP 108/58; PULSE 72; RESP 20; O2SAT 96
[2025-02-08] MEDS: SODIUM CHLORIDE 0.9% IV 1,000 ML 999 ML IV CONT (00:18)
[2025-02-08] MEDS: KETOROLAC 15 MG/ML VIAL (*BKC) IV PUSH (00:19)
[2025-02-08] MEDS: cefTRIAXone 1 GM in SODIUM CHLORIDE 0.9% IV 50 ML 100 ML IVPB (00:25)
[2025-02-08 00:30] VITALS: PULSE 81; RESP 18; O2SAT 97
[2025-02-08 00:31] VITALS: BP 119/57; PULSE 80; RESP 19; O2SAT 99
[2025-02-08 01:00] VITALS: BP 118/77; PULSE 76; RESP 20; O2SAT 100
[2025-02-08 01:01] VITALS: PULSE 79; RESP 15; O2SAT 100
== END 2025-02-08 01:39 | disposition home or self-care (01) ==
PROVIDERS: Emergency Provider Emergency Medicine; PCP Student in an Organized Health Care Education/Training Program
DX: N39.0 Urinary tract infection, site not specified (principal); R10.9 Unspecified abdominal pain; F41.9 Anxiety disorder, unspecified; J45.909 Unspecified asthma, uncomplicated; F17.210 Nicotine dependence, cigarettes, uncomplicated
CPT/HCPCS: 36415; 74177; 80053; 81001; 83690; 83735; 84703; 85025; 96365; 96375; 99284; J0696; J1885; J7030; Q9967

== ENCOUNTER 2025-03-26 12:26 | Emergency (ER) | payer OTHER, SELFPAY ==
--- NOTE | 2025-03-26 12:28 | ED.SKABFB ---
HPI - Skin/Abscess/Foreign Bdy General Chief complaint: Skin/Abscess/Foreign Body Stated complaint: rash Source: patient and RN notes reviewed Mode of arrival: ambulatory Limitations: no limitations History of Present Illness HPI narrative: Patient is a 49-year-old female who presents to the [facility] with complaints possible insect bite. Patient states that she was at work sitting next to a spider web yesterday when she felt a pain just above her right elbow. Patient states that the area has not become swollen and reddened. She is afraid that she may have been biten by a spider. Related Data Home Medications ?Medication ?Instructions ?Recorded ?Confirmed ?Last Taken ?Type amitriptyline 25 mg tablet 25 mg PO HS 12/04/21 01/22/25 12/06/24 History albuterol sulfate 90 mcg/actuation 2 puff inhalation Q6H PRN 10/05/24 01/22/25 Unknown History aerosol inhaler shortness of breath or wheezing hydrocodone 5 mg-acetaminophen 325 1 tablet PO Q6H PRN pain 12/05/24 01/22/25 Unknown History mg tablet cholecalciferol (vitamin D3) 25 50 mcg PO DAILY 01/22/25 01/22/25 Unknown History mcg (1,000 unit) capsule (Vitamin D3) Allergies Allergy/AdvReac Type Severity Reaction Status Date / Time escitalopram (From Lexapro) Allergy Mild Unknown Verified 03/26/25 12:54 metoclopramide (From Reglan) AdvReac Mild Unknown Verified 03/26/25 12:54 sertraline AdvReac Unknown INTENSIFIES Verified 03/26/25 12:54 ANXIETY Review of Systems Review of Systems: CONSTITUTIONAL: Denies fever, chills, or sweats. EYES: Denies visual changes, redness, or discharge. ENT: Denies otalgia and sore throat CARDIOVASCULAR: Denies chest pain, palpitations, or edema. RESPIRATORY: Denies cough or dyspnea. GASTROINTESTINAL: Denies abdominal pain, nausea, vomiting, or diarrhea. GENITOURINARY: Denies dysuria or hematuria. SKIN: Reports wound to right elbow. MUSCULOSKELETAL: Denies back pain, joint pain, or myalgia. NEUROLOGIC: Denies headache, numbness, or weakness. Pertinent positives per HPI. [facility] Past Medical History Medical History Anxiety Seasonal asthma Vmitdpy-Gpxtd-Ceppx disease Obesity Dyspepsia Enterocolitis Belching Gas bloat syndrome Irritable bowel syndrome with diarrhea History of migraine Irritable bowel syndrome Surgical History Surgical History No pertinent past surgical history Social History Social History Years smoked: 26 Smoking status: Current every day smoker Tobacco type: cigarettes and e-cigarettes/vaping Additional smoking assessment comments: Vapes inside, smokes outside. Alcohol intake: current Substance use type: marijuana Other substance usage details: Every now and then for sleep Living arrangements: with family Spiritual care concerns: No Comments At the time of my signature, I reviewed and agree with the nursing past medical, surgical, social, and family history. There is no relevant family history pertinent to the patient complaint. Exam Narrative: GENERAL: This is a well-nourished, well-developed patient, in no apparent distress. HEAD: normocephalic, atraumatic. EYES: PERRL. Sclera clear/white. Vision is grossly intact. EARS: External ears normal, auditory canals clear and without drainage, TMs normal without perforation. Hearing grossly intact. NOSE: External nose normal with no obvious nasal discharge, nares without redness, no rhinorrhea. THROAT: Mucous membranes moist, posterior pharynx clear. NECK: Neck supple, non-tender without lymphadenopathy, masses or thyromegaly. CARDIOVASCULAR: Regular rate and rhythm without murmurs, gallops, or rubs. RESPIRATORY: Clear to auscultation. Breath sounds equal bilaterally. No wheezes, rales, or rhonchi. GASTROINTESTINAL: Abdomen soft, non-tender, nondistended. Bowel sounds are active. No hepato-splenomegaly, or palpable masses. No guarding. SKIN: Small scab just above the right elbow with area of erythema and induration. NEURO: awake, alert, and oriented to person, place and time. There were no obvious focal neurologic abnormalities. Course Course Level of Care: Express Care Visit Vital Signs Vital signs: Vital Signs Temperature 97.4 F L 03/26/25 12:36 Pulse Rate 87 03/26/25 12:36 Respiratory Rate 16 03/26/25 12:36 Blood Pressure 129/69 03/26/25 12:36 Pulse Oximetry 98 03/26/25 12:36 Oxygen Delivery Room Air 03/26/25 12:36 Temperature 97.4 F L 03/26/25 12:36 Pulse Rate 87 03/26/25 12:36 Respiratory Rate 16 03/26/25 12:36 Blood Pressure 129/69 03/26/25 12:36 Pulse Oximetry 98 03/26/25 12:36 Oxygen Delivery Room Air 03/26/25 12:36 Reviewed MDM - Skin/Abscess/Foreign Bdy MDM Narrative Medical decision making narrative: Clean with soap and water only; Avoid using alcohol and peroxide. Elevate the affected area if possible Alternate Tylenol/ibuprofen for as needed for pain Acetaminophen(Tylenol) 650-1000mg every 4-6hours with max of 4000mg/day. Nonsteroidal anti-inflammatory agent (NSAIDs-ibuprofen): 400mg every 4-6hours with max 2400mg/day Take antibiotic until it's gone. Please schedule a follow up visit with your personal physician for further evaluation and treatment within 3-5days OR if your symptoms persist, change or worsen significantly before you can contact your personal physician then please, without delay, go to the emergency department for further evaluation. Differential Diagnosis Differential diagnosis: Likely abscess of skin or subcutaneous tissue, cellulitis, insect bites and contact dermatitis Critical Care Time Critical Care Time Critical Care Time: No Discharge Plan Discharge Clinical Impression: Infected insect bite Qualifiers: Encounter type: initial encounter Qualified Code(s): W57.XXXA - Bitten or stung by nonvenomous insect and other nonvenomous arthropods, initial encounter Patient Disposition: Home Condition: Stable Instructions: Antibiotic Form, Cellulitis (ED), Insect Bite or Sting (ED) Additional Instructions: Clean with soap and water only; Avoid using alcohol and peroxide. Elevate the affected area if possible Alternate Tylenol/ibuprofen for as needed for pain Acetaminophen(Tylenol) 650-1000mg every 4-6hours with max of 4000mg/day. Nonsteroidal anti-inflammatory agent (NSAIDs-ibuprofen): 400mg every 4-6hours with max 2400mg/day Take antibiotic until it's gone. Please schedule a follow up visit with your personal physician for further evaluation and treatment within 3-5days OR if your symptoms persist, change or worsen significantly before you can contact your personal physician then please, without delay, go to the emergency department for further evaluation. Patient Language: Cambodian Prescriptions: New doxycycline monohydrate 100 mg capsule 100 mg PO BID 10 Days Qty: 20 0RF No Action amitriptyline 25 mg tablet 25 mg PO HS albuterol sulfate 90 mcg/actuation HFA aerosol inhaler 2 puff INHALATION Q6H PRN (Reason: shortness of breath or wheezing) hydrocodone-acetaminophen 5-325 mg tablet 1 tablet PO Q6H PRN (Reason: pain) cholecalciferol (vitamin D3) [Vitamin D3] 25 mcg (1,000 unit) capsule 50 mcg PO DAILY hydrocodone-acetaminophen 5-325 mg tablet 1 - 2 tablet PO Q6H PRN (Reason: pain) Qty: 25 0RF ibuprofen 600 mg tablet 600 mg PO TID Qty: 20 0RF cephalexin 500 mg capsule 500 mg PO Q12H 5 Days Qty: 10 0RF Follow-up/Referrals: UNKNOWN,DOCTOR [Primary Care Provider] Time of Disposition: 12:55
--- OUTSIDE RECORDS SUMMARY | 2025-03-26 12:30 | XMS_ITS | Continuity of Care Document ---
Author Name [facility] Organization [facility] Care Team Providers Care Vocational Nursing Instructor Name Role Phone [facility] Unavailable Unavailable Problems [...] DoD visit for: exam 2nd trimester (at ____weeks) Inactive Condition DoD diarrhea Inactive Condition DoD SECONDARY INSOMNIA Inactive Condition Do D Inquiry And Counseling: Contraceptive Practices Active Condition [facility] ELDERLY MULTIGRAVIDA (35 or older at delivery) Inactive Condition DoD UPPER RESPIRATORY INFECTION Inactive Condition DoD BACKACHE Active Condition DoD COMMON COLD Inactive Condition DoD CONSTIPATION Inactive Condition [facility] visit for: exam high-risk elderly multigravida Inactive Condition DoD constipation Inactive Condition DoD nausea Inactive Condition DoD Urine Test Inactive Condition DoD RHINOSINUSITIS Inactive Condition [facility] Outpatient Physician Consultation Inactive Condition DoD CONDITIONS INFLUENCING HEALTH STATUS Active Condition DoD CERVICALGIA Active Condition [facility] visit for: screening exam for malignant neoplasm cervix Inactive Condition DoD CYSTITIS ACUTE Inactive Condition DoD FEMALE PELVIC PAIN Active Condition DoD ENDOMETRIOSIS Active Condition DoD nonmenstrual bleeding Active Condition DoD Test Inactive Condition DoD ACUTE BRONCHITIS Inactive Condition [facility] visit for: issue repeat prescription [...] NORMAL CHECKUP - THIRD TRIMESTER Inactive Condition [facility] visit for: exam high-risk Inactive Condition DoD lower back pain Inactive Condition DoD ANXIETY DISORDER NOS Inactive Condition DoD Vaccines Prophylactic Need Against Influenza Inactive Condition DoD current smoker Active Condition DoD Oral Glucose Tolerance Test 2-Hour Value Between 140 - 200 Inactive Condition [facility] NORMAL CHECKUP - SECOND TRIMESTER Inactive Condition DoD NORMAL Inactive Condition DoD PSYCHIATRIC DIAGNOSIS OR CONDITION DEFERRED ON AXIS I Inactive Condition DoD DEPRESSION Inactive Condition DoD Inactive Condition DoD HYPEREMESIS GRAVIDARUM Inactive Condition DoD Patient Counseling: Inactive Condition D Supervision Of Normal Inactive Condition [facility] visit for: exam 1st trimester (at ____weeks) Inactive Condition DoD nausea with vomiting Inactive Condition [facility] IRRITABLE BOWEL SYNDROME Active Condition [facility] visit for: administrative purpose Inactive Condition [facility] smoking cigarettes Active Condition [facility] DYSMENORRHEA Active Condition DoD DYSFUNCTIONAL UTERINE BLEEDING Active Condition DoD feared medical condition not demonstrated Inactive Condition [facility] visit for: screening exam malignant neoplasm breast Inactive Condition DoD ROUTINE GYNECOLOGICAL EXAM WITH CERVICAL PAP SMEAR Inactive Condition DoD VAGINAL DISCHARGE Inactive Condition DoD DYSPAREUNIA Active Condition DoD pain during urination (dysuria) Active Condition DoD DERMATOPHYTOSIS TINEA PEDIS Inactive Condition DoD DERMATOPHYTOSIS TINEA MANUUM Active Condition [facility] visit for: issue repeat prescription Inactive Condition [facility] Patient Education - Medication Inactive Condition DoD Need For Vaccination Hepatitis B Inactive Condition DoD anxiety Inactive Condition Pt with anxiety disorder that has failed every SSRI and Wellbutrin and per patient. Pt does not tolerate klonopin. Will give trial of low dose Xanax. Follow up as needed. [facility] NORMAL PRE-EMPLOYMENT SCREENING EXAMINATION Inactive [...] LUPIN PHARMACEU, 8.5 g CANISTER Cancele d [id number] : 2023 0 Pharmac y Data Transac tion Service Facilit y FLUOXETINE HCL (FLUOXETINE HCL), 20MG, CAPSULE, ORAL, [employer], 1000 ea. BOTTLE Active [id number] 2023 90 Pharmac y Data Transac tion Service Facilit y phentermine 15 mg capsule See Instruct ions, # 30 EA, 0 total refill(s ), Hard Stop Complet ed 09/21/2023 3 2023 30.0 Ambulat ory Pharmac y SUMATRIPTAN SUCCINATE (sumatripta n succinate), 100 MG, TABLET, ORAL, 'S LAB, 27 ea. BLIST PACK Active [id number] 2023 9 Pharmac y Data Transac tion Service Facilit y topiramate [Exelan] 50 mg tablet See Instruct ions, # 90 EA, 0 total refill(s ), Hard Stop Complet ed 03/24/2024 3 2023 90.0 Ambulat ory Pharmac y TRAZODONE HCL (trazodone HCl), 50 MG, TABLET, ORAL, AUROBINDO PHARM, 100 ea. BOTTLE Cancele d [id number] : 2023 0 Pharmac y Data Transac [...] } Drug allergy (disorder) Rash active [address] [place] [address] [place] [employer] ([facility]) OTHER {Cla } Propensity to adverse reactions to drug Rash Active 3 LATEX Unknown Organiza tion PHENERGAN (PROMETHAZIN E HCL) Drug allergy (disorder) Unknown active [address] [place] [address] [place] [employer] ([facility]) promethazine Propensity to adverse reactions to drug Unknown Active 4 Unknown Organiza tion PROZAC (FLUOXETINE HCL) Drug allergy (disorder) Diarrhea active [address] [place] [address] [place] [facility]) REGLAN (METOCLOPRAM JENNY HCL) Drug allergy (disorder) Depression active [address] [place] [address]) sertraline Propensity to adverse reactions to drug Depression Active 4 Unknown Organiza tion ZOLOFT (SERTRALINE HCL) Drug allergy (disorder) Depression active [address] [place] [address] ([facility]) Immunizations Combined list of available immunizations from the Department of Defense and Veterans Affairs facilities. Immunization Series Date Given Administered By Site Reaction Lot Number CVX Code Drug Car Runner Status Comments Source influenza, injectable, quadrivalent- pf 2017 zzLef t Arm [id number] Seqirus complet ed influenza , injectabl e, quadrival ent-pf 05/11/18 Given Ambulat ory Pharmac y influenza, seasonal, injectable-pf 2015 zzLef t Arm [id number] 140 Seqirus complet ed influenza , seasonal, injectabl e-pf 07/15/16 Given Ambulat ory Pharmac y influenza, injectable, quadrivalent 2013 zzLef t Arm [id number] [employer] complet ed influenza , injectabl e, quadrival ent 06/07/14 Given Ambulat ory Pharmac y tetanus, diphtheria, acellular pertu is 2013 zzRig ht Arm [id number] 115 GlaxoSmithKli ne complet ed tetanus, diphtheri a, acellular pertussis 11/20/13 Given Ambulat ory Pharmac y influenza, seasonal, injectable-pf 2013 zzLef t Arm [id number] 140 sanofi pasteur complet ed influenza , seasonal, injectabl e-pf 08/28/13 Given Ambulat ory Pharmac y influenza, seasonal, injectable-pf 2011 zzRig ht Arm [id number] 140 sanofi pasteur complet ed influenza , seasonal, injectabl e-pf 06/10/12 Given Ambulat ory Pharmac y influenza, seasonal, injectable-pf 2010 zzLef t Arm [id number] 140 sanofi pasteur complet ed influenza , seasonal, injectabl e-pf 06/15/11 Given Ambulat ory Pharmac y influenza virus vaccine,split 2009 zzRig ht Arm [id number] 15 sanofi pasteur complet ed influenza virus vaccine,s plit 06/30/10 Given Ambulat ory Pharmac y Novel Influenza-H1N 1-09,live virus,nasal 2009 [id number] 125 [employer] comple t ed Novel Influenza -L4H9-12, live virus,rafal al 08/29/09 Given Ambulat ory Pharmac y influenza virus vaccine,split 2008 zzLef t Arm [id number] 15 sanofi pasteur complet ed influenza virus vaccine,s plit 05/16/09 Given Ambulat ory Pharmac y hepatitis B adult vaccine 2007 zzLef t Arm [id number] 43 GlaxoSmithKli ne complet ed hepatitis B adult vaccine 07/05/08 Given Ambulat ory Pharmac y hepatitis B adult vaccine 2007 zzLef t Arm [id number] 43 GlaxoSmithKli ne complet ed hepatitis B adult vaccine 04/04/08 Given Ambulat ory Pharmac y Encounters Combined list of: 1) Encounters from Department of Veterans Affairs facilities going backup to the last 18 months, not all VA inpatient encounters are included; 2) Encounters from the Department of Defense facilities going backup to 280 months. Location Location Details Encounter Type Encounter Number Reason For Visit Attending Provider ADM Date DC Date Status Disposition Source [address] [place] [address] [place] [facility] [place] [facility] Help/Systems Tm Blue) OUTPATIENT [id number] [phone] physica l to go to school for medical assista ALDO Johnson 04/04 Released w/o Limitations [address] [place] [address] [place] [employer] [facility] [place] Tm Blue) [address] [place] [address] [place] [employer] [facility] [place] [facility] Help/Systems Tm Blue) TELE CONSULT [id number] Medicat ion Request HARDY GLOVER 05/[address] [place] [address] [place] [facility] [place] [facility] FAMRES Tm Blue) [address] [place] [address] [place] [facility] [place] [facility] Good EggsRES Tm Blue) OUTPATIENT [id number] rash on hand... .[phone] ADELINE GU 07/05 Released w/o Limitations [employer] ([facility]S cott [facility] FAMRES Tm Blue) [employer] ([facility]Sco tt [facility] FAMRES Tm Blue) TELE CONSULT [id number] Medicat ion Request ALDO DAY 08/21 [employer] ([facility]S cott [facility] FAMRES Tm Blue) [employer] ([facility])(Sco tt [facility] FAMRES Tm Blue[facility] OUTPATIENT [id number] annual pap.... [id number] WANDA FELICIANO 09/18 Released w/o Limitations [employer] ([facility]S cott [facility] FAMRES Tm Blue) [facility] [employer] ([facility])(Nonprofit Financial Controller ecology) OUTPATIENT [id number] feared medical conditi on not demonst rated MARGARETTE TABARES 10/03 Released w/o Limitations [employer] ([facility])(G ynecolo gy) [facility] [employer] ([facility])(Ob/ Nonprofit Financial Controller) TELE CONSULT [id number] us and lab results MARGARETTE TABARES 10/18 [employer] ([facility])(O b/Nonprofit Financial Controller) [facility] [employer] ([facility])(Nonprofit Financial Controller ecology) OUTPATIENT [id number] preg test CHETNA BARKER 11/02 Released w/o Limitations [facility] [employer] ([facility])(G ynecolo gy[facility] [employer] ([facility]Sco tt [facility] FAMRES Tm Blue) TELE CONSULT [id number] Medicat ion Request ALDO DAY 11/05 [employer] ([facility]S cott [facility] FAMRES Tm Blue) [employer] ([facility]Sco tt [facility] Fam Res Tm Green) OUTPATIENT [id number] medicat ion/OB questAFSHIN Lorenzo 11/09 Released w/o Limitations [employer] ([facility]S cott [facility] Fam Res Tm Green) [employer] ([facility]Sco tt [facility] FAMRES Tm Blue) OUTPATIENT [id number] initiat e OB care GENESIS, ANNE 11/12 Released w/o Limitations [employer] ([facility]S cott [facility] FAMRES Tm Blue) [employer] ([facility]Sco tt [facility] FAMRES Tm Blue) OUTPATIENT [id number] early pregnan cy; hyperem esiADELINE Viveros 11/19 Released w/o Limitations [employer] ([facility]S cott [facility] FAMRES Tm Blue) [facility] [employer] ([facility])(Ob/ Nonprofit Financial Controller) OUTPATIENT [id number] transfe r in from [facility] EDC [id number] TOWNSENDZACK BLACK 12/17 Released w/o Limitations [employer] ([facility])(O b/Nonprofit Financial Controller) [facility] [employer] ([facility])(Ob/ Nonprofit Financial Controller) OUTPATIENT [id number] new ob - edc jul 10 JE LUNA 01/02 Released w/o Limitations [employer] ([facility])(O b/Nonprofit Financial Controller) [facility] [employer] ([facility])(Ob/ Nonprofit Financial Controller) TELE CONSULT [id number] referra JE Mathews 01/03 [facility] [employer] ([facility])(O b/Nonprofit Financial Controller) [facility] [employer] ([facility])(Nonprofit Financial Controller ecology) TELE CONSULT [id number] Needs note from doctor TRUNG HALEY 01/16 [facility] [employer] ([facility])(G ynecolo gy) [facility] [employer] ([facility])(Ob/ Nonprofit Financial Controller) OUTPATIENT [id number] 16 wks edc jul 10 JE LUNA 01/23 Released w/o Limitations [employer] ([facility])(O b/Nonprofit Financial Controller) [facility] [employer] ([facility])(Ob/ Nonprofit Financial Controller) TELE CONSULT [id number] request ing letter TRUNG HALEY 01/23 [facility] [employer] ([facility])(O b/Nonprofit Financial Controller) [employer] ([facility])(Ob/ Nonprofit Financial Controller) TELE CONSULT [id number] ua symptom s TRUNG HALEY 02/05 [facility] [employer] ([facility])(O b/Nonprofit Financial Controller[facility] [employer] ([facility])(Ob/ Nonprofit Financial Controller) OUTPATIENT [id number] NIC - EDC jul 10 ZACK TOWNSEND 02/20 Released w/o Limitations [facility] [employer] ([facility])(O b/Nonprofit Financial Controller) [facility] [employer] ([facility])(Ob/ Nonprofit Financial Controller) TELE CONSULT [id number] JE LUNA 02/28 [facility] [employer] ([facility])(O b/Nonprofit Financial Controller) [facility] [employer] ([facility])(Ob/ Nonprofit Financial Controller) TELE CONSULT [id number] OB w/ contrac mary N/V KELSIE INIGUEZ 03/11 [facility] [employer] ([facility])(O b/Nonprofit Financial Controller) [facility] [employer] ([facility])(Ob/ Nonprofit Financial Controller) OUTPATIENT [id number] nic - edc jul 10 MARGARETTE TABARES 03/25 Released w/o Limitations [facility] [employer] ([facility])(O b/Nonprofit Financial Controller) [facility] [employer] ([facility])(Ob/ Nonprofit Financial Controller) TELE CONSULT [id number] request for med refill CESARIO JEFFERY 04/09 [facility] [employer] ([facility])(O b/Nonprofit Financial Controller) [facility] [employer] ([facility])(Ob/ Nonprofit Financial Controller) TELE CONSULT [id number] lab result MARGARETTE TABARES 04/12 [facility] [employer] ([facility])(O b/Nonprofit Financial Controller) [facility] [employer] ([facility])(Ob/ Nonprofit Financial Controller) OUTPATIENT [id number] nic - edc jul 10 CESARIO JEFFERY 04/16 Released with Work/Duty Limitations [facility] [employer] ([facility])(O b/Nonprofit Financial Controller) [facility] [employer] ([facility])(Ob/ Nonprofit Financial Controller) TELE CONSULT [id number] test results VERONICA JOHNS 04/30 [facility] [employer] ([facility])(O b/Nonprofit Financial Controller) [facility] [employer] ([facility])(Ob/ Nonprofit Financial Controller) OUTPATIENT [id number] nic - edc jul 10 - discuss deliver y BRIE Nicole C 05/16 Released w/o Limitations [employer] ([facility])(O b/Nonprofit Financial Controller) [employer] ([facility]Sco tt [facility] Fam Res Tm Green) OUTPATIENT [id number] flu shot for high risk pt AL TALBOT 05/16 Released w/o Limitations [employer] ([facility]S cott [facility] Fam Res Tm Green) [employer] ([facility])(Ob/ Nonprofit Financial Controller) TELE CONSULT [id number] flu symptom s TRUNG HALEY 05/28 [employer] ([facility])(O b/Nonprofit Financial Controller[facility] [employer] ([facility])(Ob/ Nonprofit Financial Controller) OUTPATIENT [id number] NIC - EDC JUL 10 JE ARIZA 06/03 Released w/o Limitations [employer] ([facility])(O b/Nonprofit Financial Controller) [facility] [employer] ([facility])(Ob/ Nonprofit Financial Controller) OUTPATIENT [id number] NIC - EDC JUL 10 BRIE CRUZ 06/11 Released w/o Limitations [employer] ([facility])(O b/Nonprofit Financial Controller) [facility] [employer] ([facility])(Ob/ Nonprofit Financial Controller) OUTPATIENT [id number] nic - edc jul 10 JE ARIZA 06/18 Released w/o Limitations [employer] ([facility])(O b/Nonprofit Financial Controller) [facility] [employer] ([facility])(Lion e Managemen t) TELE CONSULT [id number] CM-Hosp ital Admissi on URBAN STYLES 06/25 [facility] [employer] ([facility])(C ase Managem ent) [facility] [employer] ([facility])(Ob/ Nonprofit Financial Controller) TELE CONSULT [id number] burning during urinati on DORI DAVENPORT L 07/01 [facility] [employer] ([facility])(O b/Nonprofit Financial Controller) [facility] [employer] ([facility]Sco tt [facility] FAMRES Tm Blue) OUTPATIENT [id number] lactati on consult from WANDA Shine 07/05 Released w/o Limitations [employer] ([facility]S cott [facility] FAMRES Tm Blue) [facility] [employer] ([facility])(Ob/ Nonprofit Financial Controller) OUTPATIENT [id number] 6 wk pp - deliver ed Jun 10 NANCY, MARVINSHARMIN Roca 08/05 Released w/o Limitations [facility] [employer] ([facility])(O b/Nonprofit Financial Controller) [address] [place] [address] [employer] ([facility])(Sco tt [facility] FAMRES Tm Blue) TELE CONSULT [id number] med refALDO Adkins 08/[address] [place] [address] [employer] ([facility])(S cott [facility] FAMRES Tm Blue) [address] [place] [address] [employer] ([facility])(Nonprofit Financial Controller ecology) OUTPATIENT [id number] james denney on NANCY MARVINSHARMIN Roca 08/20 Released w/o Limitations [address] [place] [address] [employer] ([facility])(G ynecolo gy) [address] [place] [address] [employer] ([facility])(Sco tt [facility] FAMRES Tm Blue) OUTPATIENT [id number] dry hands and feet cell# [id number] [phone] LEXY BRICENO 08/29 Released w/o Limitations [facility] [employer] ([facility]S cott [facility] [place] [facility] Tm Blue) [address] [place] [address] [employer] ([facility])(Ob/ Nonprofit Financial Controller) TELE CONSULT [id number] some concern s with JE GALE 09/[address] [place] [address] [employer] ([facility])(O b/Nonprofit Financial Controller) [address] [place] [address] [employer] ([facility])(Sco tt [facility] Tm Blue) OUTPATIENT [id number] fu left hand [phone] VASU CARPENTER 10/18 Released w/o Limitations [address] [place] [address] [employer] ([facility])(S cott [facility] Tm Blue) [address] [place] [address] [employer] ([facility])(Hubert matology) OUTPATIENT [id number] DYSHIDR MONI DILL 11/08 Released w/o Limitations [address] [place] [address] [employer] ([facility])(Dilma woo) [address] [place] [address] [employer] ([facility])(Sco tt [facility] Tm Blue) TELE CONSULT [id number] refill narc VASU CARPENTER 12/[address] [place] [address] [employer] [facility]S cott [facility] Tm Blue) [address] [place] [address] [employer] ([facility])(Ob/ Nonprofit Financial Controller) TELE CONSULT [id number] appt VERONICA JOHNS 12/[address] [place] [address] [employer] ([facility])(O b/Nonprofit Financial Controller) [address] [place] [address] [employer] [facility]Opt ometry) OUTPATIENT [id number] eye exam... [id number] LUZ MUHAMMAD 12/31 Released w/o Limitations [address] [place] [address] [employer] ([facility])(O ptometr y) [address] [place] [address] [employer] ([facility])(Nonprofit Financial Controller ecology) OUTPATIENT [id number] iud removal BRIE CRUZ 01/14 Released w/o Limitations [address] [place] [address] [employer] ([facility])(G ynecolo gy) [address] [place] [address] [employer] [facility]Sco tt [facility] Tm Blue) OUTPATIENT [id number] discuss quittin g smoking /ear acupunt ALDO Swenson 01/24 Released w/o Limitations [address] [place] [address] [employer] [facility] [place]S cott [facility] Tm Blue) [address] [place] [address] [employer] [facility] [place]Sco tt [facility] Tm Blue) TELE CONSULT [id number] Medical Inquiry ALDO DAY 03/[address] [place] [address] [employer] ([facility])(S cott [facility] Tm Blue) [address] [place] [address] [employer] [place] [facility] [place]Sco tt [facility] Tm Blue) OUTPATIENT [id number] f/u ibs/gal lbladde ALDO Vega 04/15 Released w/o Limitations [address] [place] [address] [employer] ([facility])(S cott [facility] Tm Blue) [address] [place] [address] [employer] [facility]Nonprofit Financial Controller ecology) OUTPATIENT [id number] bp check and review bcp - [phone] BRIE CRUZ 04/17 Released w/o Limitations [address] [place] [address] [employer] ([facility])(G ynecolo gy) [address] [place] [address] [employer] [facility]Fam jesus Med Tm B Non-AD BCC) OUTPATIENT [id number] Congest ion [phone] MONI BOSS 08/05 Released w/o Limitations [address] [place] [address] [place] [facility])(F amily Med Tm B Non-AD BCC) [address] [place] [address] [place] [facility])(Nonprofit Financial Controller ecology) OUTPATIENT [id number] pregnan cy test KELSIE INIGUEZ 08/05 Released w/o Limitations [address] [place] [address] [place] [facility])(G ynecolo gy) [address] [place] [address] [place] [facility])(War rior Op Med Cln Tm A Ad) TELE CONSULT [id number] Patient is request ing a refill on med Amitrip tyline. SIDDHARTH CURTIS 08/[address] [place] [address] [place] [facility])(W arrior Op Med Cln Tm A Ad) [address] [place] [address] [place] [facility])(Fam jesus Med Tm B Non-AD BCC) OUTPATIENT [id number] wrist pain [phone] EFREN MAYA 09/17 Released w/o Limitations [address] [place] [address] [place] [facility])(F amily Med Tm B Non-AD BCC) [address] [place] [address])(War rior Op Med Cln Tm A Ad) OUTPATIENT [id number] feeling nervous all the time [phone] EFREN MAYA 02/11 Released w/o Limitations [address] [place] [address] [place] [facility])(W arrior Op Med Cln Tm A Ad) [address] [place] [address] [place] [facility])(War rior Op Med Cln Tm A Ad) OUTPATIENT [id number] abd pain [phone] EFREN MAYA 04/27 Released w/o Limitations [address] [place] [address] [place] [facility])(W arrior Op Med Cln Tm A Ad) [address] [place] [address] [place] [facility])(War rior Op Med Cln Tm A Ad) TELE CONSULT [id number] Lab Result Review results with patient EFREN MAYA 04/[address] [place] [address] [place] [facility])(W arrior Op Med Cln Tm A Ad) [address] [place] [address] [place] [facility])(War rior Op Med Cln Tm A Ad) TELE CONSULT [id number] Notes Entered by: GENA MARTE 17 Dec 2011 1237 ------- ------- ------- ------- -- Tcon for possibl e sinus infecti on CHANCE Maya ph [phone] cad eduardo MILLEREVONNE MTZ George 12/[address] [place] [address])(W arrior Op Med Cln Tm A Ad) [address] [place] [address])(War rior Op Med Cln Tm A Ad) OUTPATIENT [id number] sinus infecti on [id number] EFREN MAYA 12/23 Released w/o Limitations [address] [place] [address])(W arrior Op Med Cln Tm A Ad) [address] [place] [address])(War rior Op Med Cln Tm A Ad) TELE CONSULT [id number] Notes Entered by: Duglas SILVESTRE 09 Mar 2012 1342 ------- ------- ------- ------- -- Med refill Nexium 40 mg daily Bruce /[facility] [id number] ANDRAE SIMS 03/[address] [place] [address])(W arrior Op Med Cln Tm A Ad) [address] [place] [address])(War rior Op Med Cln Tm A Ad) OUTPATIENT [id number] cough congest ion [phone] LOIS IBARRA 06/09 Released w/o Limitations [address] [place] [address])(W arrior Op Med Cln Tm A Ad) [address] [place] [address])(Nonprofit Financial Controller ecology) TELE CONSULT [id number] Notes Entered by: Toby YA 10 Jun 2012 1448 ------- ------- ------- ------- -- Walk in LARY LEVINE 06/[address] [place] [address])(Geoffrey razo gy) [address] [place] [address])(Fam jesus Med Tm B Non-AD BCC) TELE CONSULT [id number] Notes Entered by: SHERYL NUNO 22 Jun 2012 0986 ------- ------- ------- ------- -- Vaginal pain, abi l JE Tiwari 06/[address] [place] [address])(F amily Med Tm B Non-AD BCC) [address] [place] [address])(Nonprofit Financial Controller ecology) TELE CONSULT [id number] Notes Entered by: LEVON FLORES 22 Jun 2012 1117 ------- ------- ------- ------- -- F/u appt for ER visit LARY NICHOLAS Aman 06/[address] [place] [address])(Geoffrey razo gy) [address] [place] [address])(Nonprofit Financial Controller ecology) TELE CONSULT [id number] Notes Entered by: KARTHIK SANDOVAL 06 Jul 2012 1352 ------- ------- ------- ------- -- Resched pia [place] appt - Josue f - [phone] MARY JO ELKINS 07/06 Referred for Appointment [address] [place] [address])(Geoffrey razo gy) [address] [place] [address])(Nonprofit Financial Controller ecology) OUTPATIENT [id number] Follow up ER visit, lower pelvic pain, UTI, dysuria and mild inconti ANI Evans 07/15 Released w/o Limitations [address] [place] [address])(G ynecodenis gy) [address] [place] [address])(Ob/ Nonprofit Financial Controller) TELE CONSULT [id number] Notes Entered by: TESSA SORIA 12 Aug 2012 1007 ------- ------- ------- ------- -- Lab result VERONICA JOHNS 08/[address] [place] [address])(O b/Nonprofit Financial Controller) [address] [place] [address])(War rior Op Med Cln Tm A Ad) TELE CONSULT [id number] Notes Entered by: SHERYL NUNO 17 Aug 2012 1020 ------- ------- ------- ------- -- Vaginal itching /burnin g ANDRAE Nguyen 08/[address] [place] [address])(W arrior Op Med Cln Tm A Ad) [address] [place] [address])(Nonprofit Financial Controller ecology) TELE CONSULT [id number] Notes Entered by: TESSA SORIA 30 Aug 2012 1003 ------- ------- ------- ------- -- US result VERONICA JOHNS 08/[address] [place] [address])(Geoffrey razo gy) [address] [place] [address])([facility] Team 3) OUTPATIENT [id number] neck and shoulde r pain x 2 weeks; denies injury, LOIS IBARRA 10/11 Released w/o Limitations [address] [place] [address])([facility] Team 3) [address] [place] [address])([facility] 3) TELE CONSULT [id number] Notes Entered by: SHERYL NUNO 19 Oct 2012 1356 ------- ------- ------- ------- -- Flu symptom s ANDRAE Nguyen 10/[address] [place] [address])([facility] Team 3) [address] [place] [address])([facility] Team 3) TELE CONSULT [id number] Notes Entered by: SOPHIA LARA 08 Nov 2012 1206 ------- ------- ------- ------- -- Ling Devlin [id number] ANDRAE HEDRICK 11/[address] [place] [address])([facility] Team 3) [address] [place] [address])(War rior Op Med Cln Tm A Ad) TELE CONSULT [id number] Notes Entered by: OWEN NEGRETE 21 Nov 2012 0824 ------- ------- ------- ------- -- Josue ruelas/ANDRAE Mariscal 11/[address] [place] [address])(W arrior Op Med Cln Tm A Ad) [address] [place] [address])(War rior Op Med Cln Tm A Ad) TELE CONSULT [id number] Notes Entered by: KANU ANGEL 14 Dec 2012 1129 ------- ------- ------- ------- -- Network Results - Physica l Therapy - 3 LOIS IBARRA 12/[address] [place] [address])(W arrior Op Med Cln Tm A Ad) [address] [place] [address])(Oho tt [facility] Team 3) TELE CONSULT [id number] Notes Entered by: SHAUN JOHNSTON 22 Dec 2012 1443 ------- ------- ------- ------- -- Med Lilia- Josue ruelas/ ANDRAE SIMS 12/[address] [place] [address])([facility] Team 3) [address] [place] [address])(War rior Op Med Cln Tm A Ad) TELE CONSULT [id number] Notes Entered by: KANU ANGEL 23 Jan 2013 1211 ------- ------- ------- ------- -- Network Results - Physica l Therapy - 3 MANN BUCIO 01/[address] [place] [address])(W arrior Op Med Cln Tm A Ad) [address] [place] [address])([facility] tt [facility] Team 3) TELE CONSULT [id number] Notes Entered by: Duglas SILVESTRE 25 Jan 2013 1510 ------- ------- ------- ------- -- Med lilia Bucio MACARENA THOMAS I 01/[address] [place] [address])(S kenisha [facility] Team 3) [address] [place] [address])(War rior Op Med Cln Tm A Ad) OUTPATIENT [id number] acid relux-m ed not working , ring in L ear [id number] RAHUL SCHMITT 02/21 Released w/o Limitations [address] [place] [address] Group [facility])(W arrior Op Med Cln Tm A Ad) [address] [place] [address])(War rior Op Med Cln Tm A Ad) TELE CONSULT [id number] Notes Entered by: RAHUL SCHMITT 22 Feb 2013 1254 ------- ------- ------- ------- -- F/u from labs RAHUL SCHMITT 02/[address] [place] [address])(W arrior Op Med Cln Tm A Ad) [address] [place] [address])(War rior Op Med Cln Tm A Ad) TELE CONSULT [id number] Notes Entered by: STARLA MARES 03 Mar 2013 1510 ------- ------- ------- ------- -- Ear pain/Giraldo jae / JODIE RODRIGUEZ 03/03 Referred for Appointment [address] [place] [address])(W arrior Op Med Cln Tm A Ad) [address] [place] [address])(War rior Op Med Cln Tm A Ad) OUTPATIENT [id number] ear pain JYOTHI BATES 03/06 Released w/o Limitations [address] [place] [address])(W arrior Op Med Cln Tm A Ad) [address] [place] [address])(War rior Op Med Cln Tm A Ad) TELE CONSULT [id number] Notes Entered by: JANESOPHIA 09 Mar 2013 1506 ------- ------- ------- ------- -- Referra aman [facility] - [id number] Jaswinder JODIE RODRIGUEZ 03/09 Referred for Appointment [address] [place] [address])(W arrior Op Med Cln Tm A Ad) [address] [place] [address])(Nonprofit Financial Controller ecology) TELE CONSULT [id number] Notes Entered by: SUSAN CONTRERAS 27 Apr 2013 0942 ------- ------- ------- ------- -- Walk in for YONG Vaughan 04/[address] [place] [address])(Geoffrey razo gy) [address] [place] [address])(War rior Op Med Cln Tm A Ad) TELE CONSULT [id number] Notes Entered by: Duglas SILVESTRE 28 Apr 2013 1157 ------- ------- ------- ------- -- [facility] 04/[address] [place] [address])(W arrior Op Med Cln Tm A Ad) [address] [place] [address])(War rior Op Med Cln Tm A Ad) TELE CONSULT [id number] Notes Entered by: STARLA MARES 01 May [id number] ------- ------- ------- ------- -- Appt request /beverley lomas/[phone] EB DOMINGO 05/[address] [place] [address])(W arrior Op Med Cln Tm A Ad) [address] [place] [address])(Ob/ Nonprofit Financial Controller) OUTPATIENT [id number] New OB with IBS EDC approx Oct 14. CLEMENTINA DAVILA 05/01 Released w/o Limitations [facility] [employer] ([facility])(O b/Nonprofit Financial Controller) [facility]Ob/ Nonprofit Financial Controller) OUTPATIENT [id number] Notes Entered by: JENI CHEN 05 May 2013 1132 ------- ------- ------- ------- -- NIC RAHMAN 5May14/ repeat u/s CLEMENTINA DAVILA 05/05 Released w/o Limitations [facility] [employer] ([facility])(O b/Nonprofit Financial Controller) [facility] [employer] ([facility])(Ob/ Nonprofit Financial Controller) TELE CONSULT [id number] Notes Entered by: MARY JO ELKINS 10 May 2013 1250 ------- ------- ------- ------- -- Constip CLEMENTINA Stanley 05/[address] [place] [address] Group [employer] ([facility])(O b/Nonprofit Financial Controller) [facility])(Ob/ Nonprofit Financial Controller) OUTPATIENT [id number] NIC RAHMAN [id number] GUERRERO DWYER 05/25 Released w/o Limitations [facility] [employer] ([facility])(O b/Nonprofit Financial Controller) [address] [place], [place] [address]B ([facility])(Ob/ Nonprofit Financial Controller) TELE CONSULT [id number] Notes Entered by: MARY JO ELKINS 03 Jul 2013 1451 ------- ------- ------- ------- -- Medicat MARY JO Guerrero 07/[address] [place] [address] [employer] ([facility])(O b/Nonprofit Financial Controller) [facility] [employer] ([facility])(Ob/ Nonprofit Financial Controller) TELE CONSULT [id number] Notes Entered by: MARY JO ELKINS 05 Jul 2013 1309 ------- ------- ------- ------- -- Cold Symptom s MARY JO ELKINS 07/[address] [place] [address] [employer] ([facility])(O b/Nonprofit Financial Controller) [facility])(Ob/ Nonprofit Financial Controller) OUTPATIENT [id number] NIC RAHMAN December 13 VIOLET WALKER 07/06 Released w/o Limitations [address] [place] [address])(O b/Nonprofit Financial Controller) [address] [place] [address])(Ob/ Nonprofit Financial Controller) TELE CONSULT [id number] Notes Entered by: MARY JO ELKINS 06 Jul 2013 1426 ------- ------- ------- ------- -- [facility] MARY JO Corley 07/[address] [place] [address])(O b/Nonprofit Financial Controller) [address] [place] [address])(Ob/ Nonprofit Financial Controller) TELE CONSULT [id number] Notes Entered by: MARY JO ELKINS 17 Jul 2013 1109 ------- ------- ------- ------- -- Anxiety MARY JO ELKINS 07/[address] [place] [address])(O b/Nonprofit Financial Controller) [address] [place] [address])(Ob/ Nonprofit Financial Controller) TELE CONSULT [id number] Notes Entered by: LASHELL PARIS 18 Jul 2013 0758 ------- ------- ------- ------- -- Network Results [facility] 3 GUERRERO DWYER 07/[address] [place] [address])(O b/Nonprofit Financial Controller) [address] [place] [address])(Ob/ Nonprofit Financial Controller) OUTPATIENT [id number] evaluat ion for anti-an xiety medicat ion d/t acute panic attacks GUERRERO DWYER 07/18 Released w/o Limitations [address] [place] [address])(O b/Nonprofit Financial Controller) [address] [place] [address])(Ob/ Nonprofit Financial Controller) TELE CONSULT [id number] Notes Entered by: MARY JO ELKINS 11 Aug 2013 1606 ------- ------- ------- ------- -- Medicat ion Refill YULIYA GUERRERO Reynaldo 08/[address] [place] [address] [place] [facility])(O b/Nonprofit Financial Controller) [address] [place] [address] [place] [facility])(Ob/ Nonprofit Financial Controller) TELE CONSULT [id number] Notes Entered by: LASHELL PARIS 16 Aug 2013 1040 ------- ------- ------- ------- -- Network Results -OBSTET RICS 08/14/13 ANI CHOI 08/[address] [place] [address] [place] [facility])(O b/Nonprofit Financial Controller) [address] [place] [address])(Ob/ Nonprofit Financial Controller) OUTPATIENT [id number] nic - [facility] december 13 YULIYA GUERRERO B 08/17 Released w/o Limitations [address] [place] [address])(O b/Nonprofit Financial Controller) [address] [place] [address])(Ob/ Nonprofit Financial Controller) TELE CONSULT [id number] Notes Entered by: ST KATERYNA DAVILA 27 Aug 2013 1307 ------- ------- ------- ------- -- anxiety CLEMENTINA DAVILA 08/[address] [place] [address])(O b/Nonprofit Financial Controller) [address] [place] [address])(Ob/ Nonprofit Financial Controller) OUTPATIENT [id number] follow up appt/an xiety attacks /treatm ent plan GUERRERO DWYER 08/28 Released w/o Limitations [address] [place] [address] [place] [facility])(O b/Nonprofit Financial Controller) [address] [place] [address] [place] [facility])(Ob/ Nonprofit Financial Controller) TELE CONSULT [id number] Notes Entered by: Aster DWYER 29 Aug 2013 0908 ------- ------- ------- ------- -- Anxiety GUERRERO DWYER 08/[address] [place] [address] [place] [facility])(O b/Nonprofit Financial Controller) [address] [place] [address] [place] [facility])(Ob/ Nonprofit Financial Controller) TELE CONSULT [id number] Notes Entered by: Duglas DAVIES 05 Sep 2013 1131 ------- ------- ------- ------- -- Med ANTONIO Yoo 09/[address] [place] [address])(O b/Nonprofit Financial Controller) [address] [place] [address])(Ob/ Nonprofit Financial Controller) OUTPATIENT [id number] f/u hospita lizatio n/anxie ANI Irving 09/08 Released w/o Limitations [address] [place] [address])(O b/Nonprofit Financial Controller) [address] [place] [address])(Ob/ Nonprofit Financial Controller) TELE CONSULT [id number] Notes Entered by: ME JARED CANO 12 Sep 2013 1146 ------- ------- ------- ------- -- Insomni a 24 6/7 week Ob-per our convers ation GUERRERO DWYER 09/[address] [place] [address])(O b/Nonprofit Financial Controller) [address] [place] [address])(Sco [facility] Res Tm Green) TELE CONSULT [id number] Notes Entered by: Jim ENRIQUEZ 12 Sep 2013 1747 ------- ------- ------- ------- -- seen inpatie nt, needs THELMA Barahona 09/[address] [place] [address])(S [facility] Res Tm Green) [address] [place] [address])(Ob/ Nonprofit Financial Controller) TELE CONSULT [id number] Notes Entered by: MARY JO ELKINS 13 Sep 2013 1540 ------- ------- ------- ------- -- MACARENA Rao I 09/[address] [place] [address])(O b/Nonprofit Financial Controller) [address] [place] [address])(Ob/ Nonprofit Financial Controller) OUTPATIENT [id number] NEW MEDICAT ION FOLLOW UP/EDC DECEMBER 13 GUERRERO DWYER 09/15 Released w/o Limitations [address] [place] [address] [facility])(O b/Nonprofit Financial Controller) [address] [place] [address] [place] [facility])(Ob/ Nonprofit Financial Controller) TELE CONSULT [id number] Notes Entered by: MARY JO ELKINS 19 Sep 2013 1505 ------- ------- ------- ------- -- Medicat ion Increas e GUERRERO DWYER 09/[address] [place] [address] ([facility])(O b/Nonprofit Financial Controller) [address] [place] [address] [place] [employer] ([facility])(Nonprofit Financial Controller ecology) TELE CONSULT [id number] Notes Entered by: LASHELL PARIS 20 Sep 2013 0816 ------- ------- ------- ------- -- Network Results [facility] 09/12/13 ANI CHOI 09/[address] [place] [address] [place] [facility])(G dung gy) [address] [place] [address])(Ob/ Nonprofit Financial Controller) OUTPATIENT [id number] nic edc december 13 THELMA HA 09/21 Released with Work/Duty Limitations [address] [place] [address])(O b/Nonprofit Financial Controller) [address] [place] [address])(Ob/ Nonprofit Financial Controller) OUTPATIENT [id number] HROB EDCDecember 13 GUERRERO DWYER 09/25 Released w/o Limitations [address] [place] [address]B [facility]O b/Nonprofit Financial Controller) [address] [place] [address])(Ob/ Nonprofit Financial Controller) TELE CONSULT [id number] Notes Entered by: YAZAN MILLS 26 Sep 2013 0920 ------- ------- ------- ------- -- HROB-casie bradshaw/ CLEMENTINA Perez 09/[address] [place], [place] [address]B ([facility])(O b/Nonprofit Financial Controller) [address] [place] [address] [place] ([facility])(Ob/ Nonprofit Financial Controller) TELE CONSULT [id number] Notes Entered by: MARY JO ELKINS 02 Oct 2013 1052 ------- ------- ------- ------- -- MFM MARY JO Corley 10/[address] [place] [address])(O b/Nonprofit Financial Controller) [address] [place] [address])(Nonprofit Financial Controller ecology) TELE CONSULT [id number] Notes Entered by: Aster DWYER 03 Oct 2013 0803 ------- ------- ------- ------- -- Abnorma l glucose screen GUERRERO DWYER 10/[address] [place] [address] [place] [facility])( [place]) [address] [place] [address] [place] [facility])(Ob/ Nonprofit Financial Controller) OUTPATIENT [id number] HROB/ EDC December 13 GUERRERO DWYER 10/05 Released w/o Limitations [address] [place] [address])(O b/Nonprofit Financial Controller) [address] [place] [address] [place] [facility])(Nonprofit Financial Controller ecology) TELE CONSULT [id number] Notes Entered by: Aster DWYER 06 Oct 2013 1542 ------- ------- ------- ------- -- Elevate d 3 hr GTT MACARENA THOMAS I 10/[address] [place] [address] ([facility])(G yneco gy) [address] [place] [address])(Ob/ Nonprofit Financial Controller) OUTPATIENT [id number] HROB/ EDC [id number] GUERRERO DWYER 10/13 Released w/o Limitations [address] [place] [address])(O b/Nonprofit Financial Controller) [address] [place], [place] [address]B [facility]Ob/ Nonprofit Financial Controller) TELE CONSULT [id number] Notes Entered by: LASHELL PARIS 18 Oct 2013 0905 ------- ------- ------- ------- -- Network Results -OBSTET RICS 10/05/13 CLEMENTINA DAVILA 10/[address] [place], [place] [address]B ([facility])(O b/Nonprofit Financial Controller) [address] [place] [address])(Ob/ Nonprofit Financial Controller) OUTPATIENT [id number] HROB/ EDC December 13 GUERRERO DWYER Reynaldo 10/19 Released w/o Limitations [facility] [employer] ([facility])(O b/Nonprofit Financial Controller) [address] [place] [address] [place] [employer] ([facility])(Ob/ Nonprofit Financial Controller) TELE CONSULT [id number] Notes Entered by: LASHELL PARIS 20 Oct 2013 1131 ------- ------- ------- ------- -- Network [facility] -OBSTET RICS 10/06/13 GUERRERO DWYER Reynaldo 10/[address] [place] [address] Group [place] [employer] ([facility])(O b/Nonprofit Financial Controller) [address] [place] [address] [place] [employer] ([facility])([facility]) TELE CONSULT [id number] Notes Entered by: CATHY TOMAS 25 Oct 2013 1058 ------- ------- ------- ------- -- Message from OB TEAM CATHY TOMAS 10/[address] [place] [address] Group [place] [employer] ([facility])(O [facility]) [facility] [place] [employer] ([facility])(Nonprofit Financial Controller ecology) TELE CONSULT [id number] Notes Entered by: Aster DWYER 26 Oct 2013 0954 ------- ------- ------- ------- -- Pt phoneca belkis GUERRERO DWYER Reynaldo 10/[address] [place] [address] [place] [employer] ([facility])(G ynecodenis gy) [facility] [place] [employer] ([facility])(Ob/ Nonprofit Financial Controller) OUTPATIENT [id number] HROB EDC [id number] CLEMENTINA DAVILA 10/26 Released w/o Limitations [facility] [employer] ([facility])(O b/Nonprofit Financial Controller) [facility] [employer] ([facility])(Ob/ Nonprofit Financial Controller) TELE CONSULT [id number] Notes Entered by: RADHA LANZA 27 Oct 2013 1511 ------- ------- ------- ------- -- Medicat ion inquiry GAYE DECKER 10/27 [facility] [employer] ([facility])(O b/Nonprofit Financial Controller) [facility] [employer] ([facility])(Ob/ Nonprofit Financial Controller) TELE CONSULT [id number] Notes Entered by: RADHA LANZA 30 Oct 2013 0915 ------- ------- ------- ------- -- Medicat ion reactio GAYE Melissa 10/30 [facility] [employer] ([facility])(O b/Nonprofit Financial Controller) [address] [place] [address] [place] [employer] ([facility])([facility]) OUTPATIENT [id number] [facility] ANDIE BLACK REYES 11/03 Released w/o Limitations [facility] [employer] ([facility])(N utritio nal Medicin e) [facility] [employer] ([facility])(Ob/ Nonprofit Financial Controller) TELE CONSULT [id number] Notes Entered by: RADHA LANZA 08 Nov 2013 0803 ------- ------- ------- ------- -- Refill prescri ption GAYE DECKER 11/08 [facility] [place] [employer] ([facility])(O b/Nonprofit Financial Controller) [facility] [employer] ([facility])(War rior Op Med Cln Tm A Ad) OUTPATIENT [id number] Cough/C ongesti on CHETNA MESA 11/08 Released w/o Limitations [facility] [employer] ([facility])(W arrior Op Med Cln Tm A Ad) [facility] [employer] ([facility])(Ob/ Nonprofit Financial Controller) OUTPATIENT [id number] HROB EDC [id number] GUERRERO DWYER 11/13 Released w/o Limitations [facility] [employer] ([facility])(O b/Nonprofit Financial Controller) [facility] [employer] ([facility])(Ob/ Nonprofit Financial Controller) OUTPATIENT [id number] HROB/ED C December 13 CLEMENTINA DAVILA 11/27 Released w/o Limitations [facility] [employer] ([facility])(O b/Nonprofit Financial Controller) [facility] [employer] ([facility])(Ob/ Nonprofit Financial Controller) TELE CONSULT [id number] Notes Entered by: JANINA MUHAMMAD 04 Dec 2013 0933 ------- ------- ------- ------- -- Nausea and dry heaving MACARENA THOMAS I 12/[address] [place] [address])(O b/Nonprofit Financial Controller) [address] [place] [address])(Ob/ Nonprofit Financial Controller) TELE CONSULT [id number] Notes Entered by: LASHELL PARIS 11 Dec 2013 1121 ------- ------- ------- ------- -- Network Results -OBSTET RICS 12/04/13 GUERRERO DWYER 12/[address] [place] [address])(O b/Nonprofit Financial Controller) [address] [place] [address])(Ob/ Nonprofit Financial Controller) OUTPATIENT [id number] Post check up/del December 13 CLEMENTINA DAVILA 12/21 Released w/o Limitations [address] [place] [address])(O b/Nonprofit Financial Controller) [address] [place] [address])(Ob/ Nonprofit Financial Controller) OUTPATIENT [id number] 6WPP/ Del 05 Dec 2013 ANI CHOI 01/23 Released w/o Limitations [address] [place], [place] [address]B [facility] [place]O b/Nonprofit Financial Controller) [address] [place] [address])(Nonprofit Financial Controller ecology) OUTPATIENT [id number] diaphra ALYSSA Krishnan 02/20 Released w/o Limitations [address] [place] [address] ([facility])(Geoffrey razo gy) [address] [place] [address])(War rior Op Med Cln Tm A Ad) TELE CONSULT [id number] Notes Entered by: Abelino SILVESTRE 01 May 2014 1304 ------- ------- ------- ------- -- SOFIA RUVALCABA/Gayle ceballos/6 [phone] EVONNE BARR 05/[address] [place], [place] [address]B ([facility])(W arrior Op Med Cln Tm A Ad) [address], [place] [address]B ([facility])(Nonprofit Financial Controller ecology) OUTPATIENT [id number] LUISANA ALEXANDER 06/04 Released w/o Limitations [employer] [place] [employer] ([facility])(G ynecolo gy) Medical [facility] [place] [facility] ([facility])(Nonprofit Financial Controller ecology) OUTPATIENT [id number] Paragar d Inserti on [phone] LUISANA DEVLIN MELO 06/18 Released w/o Limitations [employer] [place] [employer] ([facility])(G ynecolo gy) [facility] [place] [facility] ([facility])(War rior Op Med Cln Tm A Ad) OUTPATIENT [id number] right wrist pain - [id number] CHETNA MESA 07/09 Released w/o Limitations [facility] [place] [facility] ([facility])(W arrior Op Med Cln Tm A Ad) [facility] [place] [facility])(Nonprofit Financial Controller ecology) OUTPATIENT [id number] placeme nt check [phone] LUISANA DEVLIN 09/07 Released w/o Limitations [facility])(G ynecolo gy) [facility])(War rior Op Med Cln Tm A Ad) TELE CONSULT [id number] Notes Entered by: ROZ GASTELUM 21 Sep 2014 1006 ------- ------- ------- ------- -- SX - multipl e sx/Elsn [facility] t/ * MANN COLON 09/21[facility] [place] [facility])(W arrior Op Med Cln Tm A Ad) [facility] [place] [facility])(War rior Op Med Cln Tm A Ad) OUTPATIENT [id number] Ovarian Cyst, ER Visit LAMAR Donnelly 09/24 Released w/o Limitations [facility] [place] [facility])(W arrior Op Med Cln Tm A Ad) [facility] [place] [facility])(Nonprofit Financial Controller ecology) OUTPATIENT [id number] Possibl e Ovarion Cyst GUERRERO DWYER 09/24 Released w/o Limitations [facility])(G ynecolo gy) [facility] [place] [facility])(Ob/ Nonprofit Financial Controller) TELE CONSULT [id number] Notes Entered by: Aster DWYER 04 Oct 2014 1623 ------- ------- ------- ------- -- U/S results VERONICA JOHNS 10/[address] [place] [address])(O b/Nonprofit Financial Controller) [address] [place] [address])(War rior Op Med Cln Tm A Ad) OUTPATIENT [id number] pain in both feet -L is worse x 1wk [id number] TENZIN HOPE 12/11 Released w/o Limitations [address] [place] [address])(W arrior Op Med Cln Tm A Ad) [address] [place] [address])(War rior Op Med Cln Tm A Ad) TELE CONSULT [id number] Notes Entered by: KANU ANGEL 29 Jan 2015 1253 ------- ------- ------- ------- -- Network results Neurolo gy 5 TENZIN HOPE 01/[address] [place] [address])(W arrior Op Med Cln Tm A Ad) [address] [place] [address] [place] [facility])(Nonprofit Financial Controller ecology) OUTPATIENT [id number] red,bli stery vagina [phone] ALYSSA COLÓN 02/05 Released w/o Limitations [address] [place] [address])(G ynecolo gy) [address] [place] [address] [place] [facility])(Nonprofit Financial Controller ecology) TELE CONSULT [id number] Notes Entered by: ANDREWS COLÓN 12 Feb 2015 1635 ------- ------- ------- ------- -- results LAMAR ALVARADO 02/[address] [place] [address])(G ynecodenis gy) [address] [place] [address])(War rior Op Med Cln Tm A Ad) TELE CONSULT [id number] Notes Entered by: KANU ANGEL 01 Mar 2015 0938 ------- ------- ------- ------- -- Network results Blanca arenas 5 TENZIN HOPE 03/[address] [place] [address])(W arrior Op Med Cln Tm A Ad) [address] [place] [address])(Nonprofit Financial Controller ecology) TELE CONSULT [id number] Notes Entered by: JUAN ALBERTO GRIMM 10 Apr 2015 1049 ------- ------- ------- ------- -- Sx - Multipl e sx/Layla donnelly/6 [phone] ANANDA WILLAMS 04/[address] [place] [address])(G ynecodenis gy) [address] [place] [address])(Nonprofit Financial Controller ecology) OUTPATIENT [id number] pelvic pain, vaginal bleedin g x 2weeks AMAYA BAEZ 04/11 Released w/o Limitations [address] [place] [address])(G ynecodenis gy) [address] [place] [address])(War rior Op Med Cln Tm A Ad) TELE CONSULT [id number] Notes Entered by: SAILAJA DEVLIN 15 Apr 2015 0818 ------- ------- ------- ------- -- Lab Results / Gil ne / KEL THOMPSON 04/[address] [place] [address])(W arrior Op Med Cln Tm A Ad) [address] [place] [address])(War rior Op Med Cln Tm A Ad) TELE CONSULT [id number] Notes Entered by: ALESIA BARRAGAN 26 Apr 2015 1103 ------- ------- ------- ------- -- ER Follow- up/ Gil ne/ 741.401 2 MANN COLON 04/[address] [place] [address])(W arrior Op Med Cln Tm A Ad) [address] [place] [address])(Nonprofit Financial Controller ecology) OUTPATIENT [id number] discuss tubalig ation [id number] GUERRERO DWYER 04/30 Released w/o Limitations [address] [place] [address])(G kamalacodenis gy) [address] [place] [address])(War rior Op Med Cln Tm A Ad) TELE CONSULT [id number] Notes Entered by: JEN BADILLO 23 May 2015 1046 ------- ------- ------- ------- -- Network Results -GASTRO ENTEROL OGY 5 TENZIN HOPE 05/[address] [place] [address])(W arrior Op Med Cln Tm A Ad) [address] [place] [address])(Nonprofit Financial Controller ecology) TELE CONSULT [id number] Notes Entered by: GILSON THOMSON 04 Jun 2015 0811 ------- ------- ------- ------- -- Cancel for Bella dDlt jad- GILSON Osuna 06/[address] [place] [address])(Geoffrey razo gy) [address] [place] [address])(Nonprofit Financial Controller ecology) TELE CONSULT [id number] Notes Entered by: Aster DWYER 05 Jun 2015 0859 ------- ------- ------- ------- -- U/S result VERONICA JOHNS 06/[address] [place] [address])(G dung gy) [address] [place] [address])(War rior Op Med Cln Tm A Ad) OUTPATIENT [id number] Bad cough, headach e, nasal and chest congest ion [id number] PLACIDO MERAZ 06/05 Released w/o Limitations [address] [place] [address])(W arrior Op Med Cln Tm A Ad) [address] [place] [address])(War rior Op Med Cln Tm A Ad) TELE CONSULT [id number] Notes Entered by: KANU ANGEL 07 Jun 2015 1008 ------- ------- ------- ------- -- Network results Neurolo gy 5 TENZIN HOPE 06/[address] [place] [address])(W arrior Op Med Cln Tm A Ad) [address] [place] [address])(Fam jesus Med Tm B Non-AD BCC) TELE CONSULT [id number] Notes Entered by: MANN COLON 22 Aug 2015 0755 ------- ------- ------- ------- -- Referra for physica l therapy needed MANN COLON 08/[address] [place] [address])(F amily Med Tm B Non-AD BCC) [address] [place] [address])(War rior Op Med Cln Tm A Ad) TELE CONSULT [id number] Notes Entered by: Delgado PIERCE 26 Aug 2015 1313 ------- ------- ------- ------- -- SAugie - Cody VALERA / Gil ne / JOE ASH 08/26 Referred for Appointment [address] [place] [address])(W arrior Op Med Cln Tm A Ad) [address] [place] [address])(War rior Op Med Cln Tm A Ad) TELE CONSULT [id number] Notes Entered by: KANU ANGEL 28 Aug 2015 1302 ------- ------- ------- ------- -- Network Results - Neurolo gy 6 TENZIN HOPE 08/[address] [place] [address] ([facility])(W arrior Op Med Cln Tm A Ad) [address] [place] [address])(Nonprofit Financial Controller ecology) OUTPATIENT [id number] Discuss Essure procedu re ANI CHOI 09/23 Released w/o Limitations [address] [place] [address])(G ynecolo gy) [address] [place] [address])(War rior Op Med Cln Tm A Ad) OUTPATIENT [id number] L and R shoulde r pain x 2 wks 741.401 2 TENZIN HOPE 09/25 Released w/o Limitations [address] [place] [address])(W arrior Op Med Cln Tm A Ad) [address] [place] [address])(War rior Op Med Cln Tm A Ad) TELE CONSULT [id number] Notes Entered by: JUAN ALBERTO GRIMM 02 Oct 2015 1405 ------- ------- ------- ------- -- Sx - Multipl e sx/Layla pagne/7 [phone] JOE ASH 10/01 Referred for Appointment [address] [place] [address])(W arrior Op Med Cln Tm A Ad) [address] [place] [address])(Nonprofit Financial Controller ecology) TELE CONSULT [id number] Notes Entered by: DIMPLE MALIK 03 Oct 2015 0927 ------- ------- ------- ------- -- Pre-op call for Essure on 10 Oct 2015 FAMILIA THOMPSON 10/[address] [place] [address])(G ynecolo gy) [address] [place] [address])(War rior Op Med Cln Tm A Ad) OUTPATIENT [id number] cough, congest ion and ear pain NOEMYAster TENZIN Delgado 10/02 Released w/o Limitations [address] [place] [address])(W arrior Op Med Cln Tm A Ad) [address] [place] [address])(Nonprofit Financial Controller ecology) OUTPATIENT [id number] essure procedu re - [phone] ANI CHOI 10/09 Released w/o Limitations [address] [place] [address])(G ynecolo gy) [address] [place] [address])(Nonprofit Financial Controller ecology) TELE CONSULT [id number] Notes Entered by: DIMPLE MALIK 11 Oct 2015 0859 ------- ------- ------- ------- -- [facility] 10 Oct 2015 DIMPLE JOHNSON 10/10 Referred for Appointment [address] [place] [address])(G ynecolo gy) [address] [place] [address])(Nonprofit Financial Controller ecology) TELE CONSULT [id number] Notes Entered by: LEVON FLORES 15 Oct 2015 1032 ------- ------- ------- ------- -- Bleedin g after ESSURE procedu re on Oct 15. DIMPLE JOHNSON 10/14 Referred for Appointment [address] [place] [address])(G ynecolo gy) [address] [place] [address])(Med ication Refill Clinic) TELE CONSULT [id number] Notes Entered by: Delgado PIERCE 21 Oct 2015 1501 ------- ------- ------- ------- -- Baljit corbett / Gil limon / ZULMA JAMISON 10/[address] [place] [address])(Michel eddiogenes on Refill Clinic) [address] [place] [address])(Med ication Refill Clinic) TELE CONSULT [id number] Notes Entered by: Vidal YA 17 Dec 2015 1144 ------- ------- ------- ------- -- Mary Mccarty Jan 15 / Gil limon / DENIZ FRANKLIN 12/[address] [place] [address])(Michel bob on Refill Clinic) [facility] [place] [employer] [facility]Nonprofit Financial Controller ecology) OUTPATIENT [id number] HSG s/p bella - GIANNA STRAUSS 01/06 Released w/o Limitations [facility] [employer] [facility]G ynecolo gy) [facility] [place] [facility]War rior Op Med Cln Tm A Ad) OUTPATIENT [id number] Med Renewal s 741.401 2 TENZIN HOPE Delgado 01/07 Released w/o Limitations [facility] [employer] ([facility])(W arrior Op Med Cln Tm A Ad) [facility] [place] [employer] ([facility])(Nonprofit Financial Controller ecology) OUTPATIENT [id number] possibl e yeast infecti on - [phone] AMAYA BAEZ 03/04 Released w/o Limitations [facility] [place] [employer] [facility]G ynecolo gy) [facility] [place] [employer] [facility]Nonprofit Financial Controller ecology) TELE CONSULT [id number] Notes Entered by: KYLE BAEZ 16 Mar 2016 1032 ------- ------- ------- ------- -- Test results LAMAR ALVARADO 03/16[facility] [place] [facility]G ynecolo gy) [address] [place] [address] [place] [facility]Sco tt [facility]) OUTPATIENT [id number] PATRICIA Serna pt 04/10 Released w/o Limitations [facility] [employer] ([facility])(S cott [facility]) [address] [place] [address] [place] [facility]Nonprofit Financial Controller ecology) OUTPATIENT [id number] repeat hsg - rt side - s/p KARI Pierce 04/14 Released w/o Limitations [facility] [employer] [facility]G ynecolo gy) [address] [place] [address] [employer] [facility]Nonprofit Financial Controller ecology) OUTPATIENT [id number] PARACATHI Perera INSERTI ON - [phone] KARI VANEGAS 04/21 Released w/o Limitations [facility] [employer] [facility]G ynecolo gy) [address] [place] [address] [place] [facility])(Fam jesus Med Tm B Non-AD BCC) OUTPATIENT [id number] melvina heredia chaz e - sore throat from drainag e - [phone] DEVIN GIBSON 06/08 Released w/o Limitations [address] [place] [address] Group [place] [facility] ([facility])(F amily Med Tm B Non-AD BCC) [address] [place] [address] [place] [facility])(War rior Op Med Cln Tm A Ad) OUTPATIENT [id number] med renewal /referr MILLY Duong 07/14 Released w/o Limitations [address] [place] [address] Group [place] [facility])(W arrior Op Med Cln Tm A Ad) [address] [place] [address])(War rior Op Med Cln Tm A Ad) OUTPATIENT [id number] sore throat, fever, body aches x2 days / TENZIN HOPE 09/02 Released w/o Limitations [address] [place] [address] [place] [facility])(W arrior Op Med Cln Tm A Ad) [address] [place] [address] [place] [facility])(War rior Op Med Cln Tm A Ad) TELE CONSULT [id number] Notes Entered by: GLEN COTO 14 Sep 2016 0946 ------- ------- ------- ------- -- Network Results Radiolo gy 7 DS TENZIN HOPE 09/[address] [place] [address] [place] [facility])(W arrior Op Med Cln Tm A Ad) [address] [place] [address] [place] [facility])(War rior Op Med Cln Tm A Ad) TELE CONSULT [id number] Notes Entered by: JEN BADILLO 14 Sep 2016 1211 ------- ------- ------- ------- -- Network Results -GASTRO ENTEROL OGY 08/28/16 SDG TENZIN HOPE 09/[address] [place] [address] [place] [facility])(W arrior Op Med Cln Tm A Ad) [address] [place] [address] [place] [facility])(War rior Op Med Cln Tm A Ad) OUTPATIENT [id number] Knot near R Collar bone [phone] TENZIN HOPE 10/23 Released w/o Limitations [facility])(W arrior Op Med Cln Tm A Ad) [facility])(War rior Op Med Cln Tm A Ad) OUTPATIENT [id number] dizzy, headach es, ear aches, [phone] MILLY BEGUM 12/14 Released w/o Limitations [facility])(W arrior Op Med Cln Tm A Ad) [facility])(War rior Op Med Cln Tm A Ad) TELE CONSULT [id number] Notes Entered by: TONY FOFANA 06 Jan 2017 1002 ------- ------- ------- ------- -- Network results Gastroe nterolo gy 12/31/16 MMM TENZIN HOPE 01/06 [facility])(W arrior Op Med Cln Tm A Ad) [facility])(Med ication Refill Clinic) TELE CONSULT [id number] Notes Entered by: CRISTI CAREY 12 Jan 2017 1300 ------- ------- ------- ------- -- Med renewal /Kathy aster/[phone] 12/clMILLY Crawford 01/12 [facility])(M edicasheryl on Refill Clinic) [facility])(War rior Op Med Cln Tm A Ad) OUTPATIENT [id number] Dizzine ss, [phone] 2 BLESSINGCA PLACIDO CHRISTY 02/08 Released w/o Limitations [facility])(W arrior Op Med Cln Tm A Ad) [facility])(War rior Op Med Cln Tm A Ad) TELE CONSULT [id number] Notes Entered by: JUAN ALBERTO GRIMM 25 Feb 2017 1202 ------- ------- ------- ------- -- Sx - Dizzine ss, R ear pain/Ch ampagne / DARIEN, RAVIN J 02/[address] [place] [address])(W arrior Op Med Cln Tm A Ad) [address] [place] [address])(Fam jesus Med Tm B Non-AD BCC) TELE CONSULT [id number] Notes Entered by: CARLOS MANUEL CORTES 02 Mar 2017 1615 ------- ------- ------- ------- -- Network Results Emergen cy Room 7 PLACIDO MERAZ 03/[address] [place] [address])(F amily Med Tm B Non-AD BCC) [address] [place] [address])(Med ication Refill Clinic) TELE CONSULT [id number] Notes Entered by: HORTENCIA OLGUIN RET 15 Apr 2017 1145 ------- ------- ------- ------- -- Rx Renewal /Kathy schuler/[phone] [facility] WICHO RUCKER 04/[address] [place] [address])(Michel bob on Refill Clinic) [address] [place] [address])(War rior Op Med Cln Tm A Ad) OUTPATIENT [id number] ear problem s 2 months TENZIN HOPE 04/19 Released w/o Limitations [address] [place] [address])(W arrior Op Med Cln Tm A Ad) [address] [place] [address])(War rior Op Med Cln Tm A Ad) TELE CONSULT [id number] Notes Entered by: HORTENCIA OLGUIN RET 29 Jun 2017 0726 ------- ------- ------- ------- -- Sx: Multi/C miguel e/ prc RAVIN LEDEZMA 06/[address] [place] [address])(W arrior Op Med Cln Tm A Ad) [address] [place] [address])(War rior Op Med Cln Tm A Ad) OUTPATIENT [id number] sore throat, low grade temp 99-100, sinus congest ionkin TYLER A 06/29 Released w/o Limitations [address] [place] [address] Group [facility])(W arrior Op Med Cln Tm A Ad) [address] [place] [address])(War rior Op Med Cln Tm A Ad) TELE CONSULT [id number] Notes Entered by: ELISABET JOHNSON 02 Jul 2017 1226 ------- ------- ------- ------- -- Positiv e Strep Throat Culture TENZIN HOPE 07/[address] [place] [address])(W arrior Op Med Cln Tm A Ad) [address] [place] [address])(Nonprofit Financial Controller ecology) OUTPATIENT [id number] bloody dischar ge x 1 week - [phone] AMAYA BAEZ 07/20 Released w/o Limitations [address] [place] [address])(Geoffrey razo gy) [address] [place] [address])(Nonprofit Financial Controller ecology) TELE CONSULT [id number] Notes Entered by: KYLE BAEZ 10 Aug 2017 1317 ------- ------- ------- ------- -- Test results VERONICA JOHNS 08/[address] [place] [address])(G ynecodenis gy) [address] [place] [address])(Fam jesus Med Tm B Non-AD BCC) OUTPATIENT [id number] [facility] F/U-SX Persist Ringing L ear/cou gh/sirisha estion [id number] KOBE SELF 09/08 Released w/o Limitations [address] [place] [address] [facility])(F amily Med Tm B Non-AD BCC) [address] [place] [address] [facility])(Med ication Refill Clinic) TELE CONSULT [id number] Notes Entered by: JUAN ALBERTO GRIMM 10 Sep 2017 0839 ------- ------- ------- ------- -- Med Renewal /Kathy [facility]/[phone] DARIENRAVIN Ventura J 09/[address] [place] [address] [facility])(M edicasheryl on Refill Clinic) [address] [place] [address])(War rior Op Med Cln Tm A Ad) TELE CONSULT [id number] Notes Entered by: HORTENCIA OLGUIN RET 13 Sep 2017 1022 ------- ------- ------- ------- -- SX: Left Ear pain/Ch [facility] DARIENRAVIN Ventura J 09/[address] [place] [address] [facility])(W arrior Op Med Cln Tm A Ad) [address] [place] [address] [facility])(War rior Op Med Cln Tm A Ad) TELE CONSULT [id number] Notes Entered by: ALEJO BERNAL 23 Sep 2017 1159 ------- ------- ------- ------- -- Network Results Emergen cy Room 09/02/17 CANDI CAROLINA 09/[address] [place] [address] [facility])(W arrior Op Med Cln Tm A Ad) [address] [place] [address])(Nonprofit Financial Controller ecology) OUTPATIENT [id number] discuss btl/rem essure coils - [phone] KARI VANEGAS 10/05 Released w/o Limitations [address] [place] [address] [facility])(G ynecolo gy) [address] [place] [address] [facility])(Ob/ Nonprofit Financial Controller) TELE CONSULT [id number] YONG FLORES T 10/[address] [place] [address])(O b/Nonprofit Financial Controller) [address] [place] [address])(War rior Op Med Cln Tm A Ad) TELE CONSULT [id number] Notes Entered by: Vidal YEUNG 12 Oct 2017 1047 ------- ------- ------- ------- -- Network results Lesly holt gy 018 TENZIN MIDDLETON 10/[address] [place] [address])(W arrior Op Med Cln Tm A Ad) [address] [place] [address])(Nonprofit Financial Controller ecology) TELE CONSULT [id number] Notes Entered by: Dilma ALVAREZ 12 Oct 2017 1334 ------- ------- ------- ------- -- Surgery reminde r 13 OCT 2017 NICCI ALVAREZ 10/[address] [place] [address])(Geoffrey razo gy) [address] [place] [address])(Nonprofit Financial Controller ecology) TELE CONSULT [id number] Notes Entered by: SUSAN CONTRERAS 15 Oct 2017 1356 ------- ------- ------- ------- -- Scanned carlotta arenas report into KARI STAHL 10/[address] [place] [address])(Geoffrey razo gy) [address] [place] [address])(Med ication Refill Clinic) TELE CONSULT [id number] Notes Entered by: SAILAJA DEVLIN 21 Oct 2017 1004 ------- ------- ------- ------- -- Med Renewal / Gil ne / - sgWICHO Decker 10/[address] [place] [address])(Michel bob on Refill Clinic) [address] [place] [address])(War rior Op Med Cln Tm A Ad) TELE CONSULT [id number] Notes Entered by: KARTHIK SANDOVAL 22 Oct 2017 1018 ------- ------- ------- ------- -- Sx: Cough, congest ion - Gil limon - - tsg* URI SARABIA Delgado 10/22 Other Not Elsewhere Classified [address] [place] [address])(W arrior Op Med Cln Tm A Ad) [address] [place] [address])(Nonprofit Financial Controller ecology) OUTPATIENT [id number] post op - [phone] KARI VANEGAS 10/26 Released w/o Limitations [address] [place] [address])(G ynecodenis gy) [address] [place] [address])(War rior Op Med Cln Tm A Ad) TELE CONSULT [id number] Notes Entered by: JOSE BURRIS 01 Nov 2017 1036 ------- ------- ------- ------- -- Med refill / WICHO Molina 11/[address] [place] [address])(W arrior Op Med Cln Tm A Ad) [address] [place] [address])(War rior Op Med Cln Tm A Ad) OUTPATIENT [id number] Feels tired/r un down/we ight gain/giraldo ir/skin very dry [id number] TENZIN HOPE 12/13 Released w/o Limitations [address] [place] [address])(W arrior Op Med Cln Tm A Ad) [address] [place] [address])(War rior Op Med Cln Tm A Ad) TELE CONSULT [id number] Notes Entered by: ELISABET JOHNSON 14 Dec 2017 1050 ------- ------- ------- ------- -- Lab results DARIEN, RAVIN J 12/[address] [place] [address])(W arrior Op Med Cln Tm A Ad) [address] [place] [address])(War rior Op Med Cln Tm A Ad) OUTPATIENT [id number] F/U for low Vitamin D - still feeling tired - decline d Virtual [id number] ANTONIO DIGGS 03/02 Released w/o Limitations [address] [place] [address])(W arrior Op Med Cln Tm A Ad) [address] [place] [address])(Nonprofit Financial Controller ecology) TELE CONSULT [id number] Notes Entered by: SUSAN CONTRERAS 05 Apr 2018 0733 ------- ------- ------- ------- -- Possibl e yeast infecti on and herpes outbrea k NICCI ALVAREZ 04/05 Referred for Appointment [address] [place] [address])(G ynecolo gy) [address] [place] [address])(War rior Op Med Cln Tm A Ad) TELE CONSULT [id number] Notes Entered by: LUCY PATEL 10 May 2018 1432 ------- ------- ------- ------- -- Med Renewal Request / Minerva / - WICHO Wiley 05/10 Referred for Appointment [address] [place] [address])(W arrior Op Med Cln Tm A Ad) [address] [place] [address])(Nonprofit Financial Controller ecology) OUTPATIENT [id number] dISCUSS treatme nt options for herpes outbrea ks [phone] (pt request ) KARI VANEGAS 05/24 Released w/o Limitations [address] [place] [address])(G ynecolo gy) [address] [place] [address])(War rior Op Med Cln Tm A Ad) TELE CONSULT [id number] Notes Entered by: JUAN ALBERTO GRIMM 15 Aug 2018 1042 ------- ------- ------- ------- -- 2nd opinion Referra l Request /Yessy heredia/ GEOVANI JARVIS 08/15 Other Not Elsewhere Classified [address] [place] [address] [facility])(W arrior Op Med Cln Tm A Ad) [address] [place] [address] [facility])(Nonprofit Financial Controller ecology) OUTPATIENT [id number] 0 3 month f/u medicat ion - [phone] KARI VANEGAS 09/12 Released w/o Limitations [address] [place] [address] [facility])(G ynecolo gy) [address] [place] [address] [facility])(War rior Op Med Cln Tm A Ad) OUTPATIENT [id number] 1 Sinus Drainag e and Pressur e, [phone] 2 ANTONIO DIGGS 11/16 Released w/o Limitations [address] [place] [address] [facility])(W arrior Op Med Cln Tm A Ad) [address] [place] [address] [facility])(War rior Op Med Cln Tm A Ad) TELE CONSULT [id number] Notes Entered by: PRAKASH BRICENO 16 Nov 2018 1111 ------- ------- ------- ------- -- Pt needs written prescri ption for buzpar, pharmac y told her they are out of it MAUDE MORA 11/16 Medication Refill Forwarded [address] [place] [address] [facility])(W arrior Op Med Cln Tm [...] OTHER ACCUMULATED DATA FOR MEDICALDIAGNOSTIC PURPOSES 09/22 [facility] INSERTION OF INTRAUTERINE DEVICE (IUD) 04/21 DoD [...] NUTRITION THERAPY; INITIAL ASSESSMENT AND INTERVENTION, INDIVIDUAL, [id number] WITH THE PATIENT, EACH 15 MINUTES 11/02 [...] FOR CONSULTATION ONLY,NOT FOR CONT CARE)] 10/05 [facility] FAMILY PSYCHOTHERAPY (CONJOINT PSYCHOTHERAPY) (WITH PATIENT PRESENT), 50 MINUTES 10/04 DoD PSYCHOTHERAPY, 60 MINUTES WITH PATIENT 09/28 DoD SUBSEQ CARE VISIT () [EXCLS:PATIENTS WHO ARE SEEN FOR A CONDITION UNREL TO / CARE (EG,AN UP RESPIR INFECT;PATIENTS SEEN FOR CONSULTATION ONLY,NOT FOR CONT CARE)] 09/25 DoD SUBSEQ CARE VISIT () [EXCLS:PATIENTS WHO ARE SEEN FOR A CONDITION UNREL TO / CARE (EG,AN UP RESPIR INFECT;PATIENTS SEEN FOR CONSULTATION ONLY,NOT FOR CONT CARE)] 09/21 DoD PSYCHOTHERAPY, 60 MINUTES WITH PATIENT 09/21 DoD SUBSEQ CARE VISIT () [EXCLS:PATIENTS WHO ARE SEEN FOR A CONDITION UNREL TO / CARE (EG,AN UP RESPIR INFECT;PATIENTS SEEN FOR CONSULTATION ONLY,NOT FOR CONT CARE)] 09/15 [facility] PSYCHIATRIC DIAGNOSTIC EVALUATION 09/14 [facility] SUBSEQ CARE VISIT () [EXCLS:PATIENTS WHO ARE SEEN FOR A CONDITION UNREL TO / CARE (EG,AN UP RESPIR INFECT;PATIENTS SEEN FOR CONSULTATION ONLY,NOT FOR CONT CARE)] 09/08 [facility] SUBSEQ CARE VISIT () [EXCLS:PATIENTS WHO ARE SEEN FOR A CONDITION UNREL TO / CARE (EG,AN UP RESPIR INFECT;PATIENTS SEEN FOR CONSULTATION ONLY,NOT FOR CONT CARE)] 08/28 [facility] SUBSEQ CARE VISIT () [EXCLS:PATIENTS WHO ARE SEEN FOR A CONDITION UNREL TO / CARE (EG,AN UP RESPIR INFECT;PATIENTS SEEN FOR CONSULTATION ONLY,NOT FOR CONT CARE)] 08/17 [facility] SUBSEQ CARE VISIT () [EXCLS:PATIENTS WHO ARE SEEN FOR A CONDITION UNREL TO / CARE (EG,AN UP RESPIR INFECT;PATIENTS SEEN FOR CONSULTATION ONLY,NOT FOR CONT CARE)] 07/18 [facility] SUBSEQ CARE VISIT () [EXCLS:PATIENTS WHO ARE SEEN FOR A CONDITION UNREL TO / CARE (EG,AN UP RESPIR INFECT;PATIENTS SEEN FOR CONSULTATION ONLY,NOT FOR CONT CARE)] 07/06 [facility] ULTRASOUND, UTERUS, REAL TIME WITH IMAGE DOCUMENTATION, LIMITED (EG, HEART BEAT, PLACENTAL LOCATION, POSITION AND/OR QUALITATIVE AMNIOTIC FLUID VOLUME), 1 OR MORE FETUSES 05/25 [facility] ULTRASOUND, UTERUS, REAL TIME WITH IMAGE DOCUMENTATION,TRANS [...] OUTPATIENT FACILITY, APPROXIMATELY 20 TO 30 MINUTES [id number] WITH THE PATIENT 01/31 [facility] INDIVIDUAL PSYCHOTHERAPY, INSIGHT ORIENTED, BEHAVIOR MODIFYING AND/OR SUPPORTIVE, IN AN OFFICE OR OUTPATIENT FACILITY, APPROXIMATELY 45 TO 50 MINUTES [id number] WITH THE PATIENT 01/10 [facility] PSYCHIATRIC DIAGNOSTIC INTERVIEW EXAMINATION 01/06 [facility] URINE TEST, BY VISUAL COLOR COMPARISON METHODS 08/05 [facility] INFECTIOUS AGENT ANTIGEN DETECTION BY [...] TRIVALENT, LIVE (LAIV3), FOR INTRANASAL USE 08/29 [facility] INSERTION OF INTRAUTERINE DEVICE (IUD) 08/20 [facility] TELE ASSESS & MGT SRV PROV QUAL NONPHYS HLTH CARE PRO TO EST PAT,PARENT,GUARD NOT ORIG REL ASSESS & MGT SRV PROV W/IN PREV 7 DAYS NOR LEAD ASSESS & MGT SRV/PX W/IN NXT 24 HR/SOON APT;5-10 MIN MED DIS 08/14 [facility] SCREENING PAPANICOLAOU SMEAR; OBTAINING, PREPARING AND CONVEYANCE OF CERVICAL OR VAGINAL SMEAR TO LABORATORY 08/05 [facility] SUBSEQ CARE VISIT () [EXCLS:PATIENTS WHO ARE SEEN FOR A CONDITION UNREL TO / CARE (EG,AN UP RESPIR INFECT;PATIENTS SEEN FOR CONSULTATION ONLY,NOT FOR CONT CARE)] 06/18 [facility] SUBSEQ CARE VISIT () [EXCLS:PATIENTS WHO ARE SEEN FOR A CONDITION UNREL TO / CARE (EG,AN UP RESPIR INFECT;PATIENTS SEEN FOR CONSULTATION ONLY,NOT FOR CONT CARE)] 06/11 [facility] SUBSEQ CARE VISIT () [EXCLS:PATIENTS WHO ARE SEEN FOR A CONDITION UNREL TO / CARE (EG,AN UP RESPIR INFECT;PATIENTS SEEN FOR CONSULTATION ONLY,NOT FOR CONT CARE)] 06/03 [facility] INFLUENZA VIRUS VACCINE, TRIVALENT (IIV3), SPLIT VIRUS, 0.5 ML DOSAGE, FOR INTRAMUSCULAR USE 05/16 [facility] SUBSEQ CARE VISIT () [EXCLS:PATIENTS WHO ARE SEEN FOR A CONDITION UNREL TO / CARE (EG,AN UP RESPIR INFECT;PATIENTS SEEN FOR CONSULTATION ONLY,NOT FOR CONT CARE)] 05/16 [facility] SUBSEQ CARE VISIT () [EXCLS:PATIENTS WHO ARE SEEN FOR A CONDITION UNREL TO / CARE (EG,AN UP RESPIR INFECT;PATIENTS SEEN FOR CONSULTATION ONLY,NOT FOR CONT CARE)] 04/16 [facility] SUBSEQ CARE VISIT () [EXCLS:PATIENTS WHO ARE SEEN FOR A CONDITION UNREL TO / CARE (EG,AN UP RESPIR INFECT;PATIENTS SEEN FOR CONSULTATION ONLY,NOT FOR CONT CARE)] 03/25 [facility] SUBSEQ CARE VISIT () [EXCLS:PATIENTS WHO ARE SEEN FOR A CONDITION UNREL TO / CARE (EG,AN UP RESPIR INFECT;PATIENTS SEEN FOR CONSULTATION ONLY,NOT FOR CONT CARE)] 02/20 [facility] SUBSEQ CARE VISIT () [EXCLS:PATIENTS WHO ARE SEEN FOR A CONDITION UNREL TO / CARE (EG,AN UP RESPIR INFECT;PATIENTS SEEN FOR CONSULTATION ONLY,NOT FOR CONT CARE)] 01/23 [facility] INDIVIDUAL PSYCHOTHERAPY, INSIGHT ORIENTED, BEHAVIOR MODIFYING AND/OR SUPPORTIVE, IN AN OFFICE OR OUTPATIENT FACILITY, APPROXIMATELY 20 TO 30 MINUTES [id number] WITH THE PATIENT 01/02 [facility] SUBSEQ CARE VISIT () [EXCLS:PATIENTS WHO ARE SEEN FOR A CONDITION UNREL TO / CARE (EG,AN UP RESPIR INFECT;PATIENTS SEEN FOR CONSULTATION ONLY,NOT FOR CONT CARE)] 01/02 [facility] URINE TEST, BY VISUAL COLOR COMPARISON METHODS 11/02 [facility] TOBACCO USE CESSATION INTERVENTION, COUNSELING (COPD, CAP, CAD, ASTHMA) (DM) (PV) 10/03 [facility] SCREENING PAPANICOLAOU SMEAR; OBTAINING, PREPARING AND CONVEYANCE OF CERVICAL OR VAGINAL SMEAR TO LABORATORY 09/18 [facility] HEPATITIS B VACCINE (HEPB), ADULT DOSAGE, 3 DOSE SCHEDULE, FOR INTRAMUSCULAR USE 07/05 [facility] HEPATITIS B VACCINE (HEPB), ADULT DOSAGE, 3 DOSE SCHEDULE, FOR INTRAMUSCULAR USE 04/04 [facility] Non-Physician Phone Call To Patient/Provider Brief (5-10min) Non-Physician Phone Call To Patient/Provider Brief (5-10min) [id number] 11/16 MAUDE MORA [facility] Non-Physician Phone Call To Patient/Provider Brief (5-10min) Non-Physician Phone Call To Patient/Provider Brief (5-10min) [id number] 08/15 GEOVANI JARVIS [facility] Disease management program, follow-up/christofer e ment 05/17 WICHO RUCKER [facility] Non-Physician Phone Call To Patient/Provider Brief (5-10min) Non-Physician Phone Call To Patient/Provider Brief (5-10min) [id number] 04/05 NICCI ALVAREZ [facility] Disease management program, follow-up/christofer e ment 11/01 TENZIN HOPE [facility] Disease management program, follow-up/christofer e ment 10/22 CANDI ARNOLD [facility] Non-Physician Phone Call To Patient/Provider Brief (5-10min) Non-Physician Phone Call To Patient/Provider Brief (5-10min) [id number] 10/22 URI SARABIA [facility] Non-Physician Phone Call To Patient/Provider Brief (5-10min) Non-Physician Phone Call To Patient/Provider Brief (5-10min) [id number] 10/12 ARLETTEHUMERANICCI [facility] Non-Physician Phone Call To Patient/Provider Brief (5-10min) Non-Physician Phone Call To Patient/Provider Brief (5-10min) [id number] 09/13 RAVIN LEDEZMA [facility] Non-Physician Phone Call To Patient/Provider Brief (5-10min) Non-Physician Phone Call To Patient/Provider Brief (5-10min) [id number] 09/10 DARIENRAVIN Ventura [facility] Vaginal Wet [place] Vaginal [place] 17071 07/20 AMAYA BAEZ [facility] Non-Physician Phone Call To Patient/Provider Brief (5-10min) Non-Physician Phone Call To Patient/Provider Brief (5-10min) [id number] 06/29 RAVIN LEDEZMA [facility] Disease management program, follow-up/christofer e ment 04/16 PLACIDO MACHUCA [facility] Non-Physician Phone Call To Patient/Provider Brief (5-10min) Non-Physician Phone Call To Patient/Provider Brief (5-10min) [id number] 02/25 RAVIN LEDEZMA [facility] Psychiatric Evaluation Review of Records and Reports Psychiatric Evaluation Review of Records and Reports [id number] 09/22 ZACHARY AVERY [facility] Gynecologic Services Intrauterine Device (IUD) Insertion Gynecologic Services Intrauterine Device (IUD) Insertion 27127 04/21 KARI VANEGAS [facility] Hysterosalpingograp hy With Catheter Contrast Injection Hysterosalpingogra phy With Catheter Contrast Injection 20334 04/14 KARI VANEGAS Procedure: A final timeout [...] was informed of these results. No complications. [facility] Screening papanicolaou smear; obtaining, preparing and conveyance of cervical or vaginal smear to laboratory 03/04 AMAYA BAEZ [facility] Vaginal Wet [place] Vaginal [place] 44941 03/04 AMAYA BAEZ [facility] Hysterosalpingograp hy With Catheter Contrast Injection Hysterosalpingogra phy With Catheter Contrast Injection 42501 01/06 GIANNA STRAUSS [facility] Psychoactive Medication Management Psychoactive Medication Management [id number] 11/28 ZACHARY AVERY [facility] Non-Physician Phone Call To Patient/Provider Brief (5-10min) Non-Physician Phone Call To Patient/Provider Brief (5-10min) [id number] 10/14 DIMPLE JOHNSON [facility] Non-Physician Phone Call To Patient/Provider Brief (5-10min) Non-Physician Phone Call To Patient/Provider Brief (5-10min) 62312 10/10 DIMPLE JOHNSON [facility] Conscious Sedation By Dr Performing Service 5 Yrs Or Older Conscious Sedation By Dr Performing Service 5 Yrs Or Older 25194 10/09 PRIYA CHOI [facility] Non-Physician Phone Call To Patient/Provider Brief (5-10min) Non-Physician Phone Call To Patient/Provider Brief (5-10min) 92500 10/03 FAMILIA THOMPSON [facility] Non-Physician Phone Call To Patient/Provider Brief (5-10min) Non-Physician Phone Call To Patient/Provider Brief (5-10min) [id number] 10/01 JOE ASH [facility] Non-Physician Phone Call To Patient/Provider Brief (5-10min) Non-Physician Phone Call To Patient/Provider Brief (5-10min) [id number] 08/26 JOE ASH [facility] Non-Physician Phone Call To Patient/Provider Brief (5-10min) Non-Physician Phone Call To Patient/Provider Brief (5-10min) [id number] 08/22 MANN COLON DoD Psych Ther Indiv Interact Appr 20-30 Min W/ Med Eval Manage 06/20 ZACHARY AVERY Psych Ther Indiv Interact Appr 45-50 Min W/ Med Eval Manage 05/17 ZACHARY AVERY Non-Physician Phone Call To Patient/Provider Brief (5-10min) Non-Physician Phone Call To Patient/Provider Brief (5-10min) [id number] 04/26 MANN COLON DoD Psych Ther Indiv Interact Appr 45-50 Min W/ Med Eval Manage 04/16 ZACHARY AVERY Vaginal Wet [place] Vaginal Wet [place] 68171 04/11 AMAYA BAEZ [facility] Non-Physician Phone Call To Patient/Provider Brief (5-10min) Non-Physician Phone Call To Patient/Provider Brief (5-10min) [id number] 04/10 ANANDA WILLAMS [facility] Psych Ther Indiv Interact Appr 45-50 Min W/ Med Eval Manage 02/18 MOLDZACHARY PARRISH DoD Psych Ther Indiv Interact Appr 45-50 Min W/ Med Eval Manage 01/01 ZACHARY AVERY DoD Psych Ther Indiv Interact Appr 45-50 Min W/ Med Eval Manage 11/19 ZACHARY AVERY Psych Ther Indiv Interact Appr 45-50 Min W/ Med Eval Manage 10/23 ZACHARY AVERY Non-Physician Phone Call To Patient/Provider Brief (5-10min) Non-Physician Phone Call To Patient/Provider Brief (5-10min) [id number] 09/21 MANN COLON DoD Psych Ther Indiv Interact Appr 45-50 Min W/ Med Eval Manage 09/06 ZACHARY AVERY DoD Psych Ther Indiv Interact Appr 45-50 Min W/ Med Eval Manage 07/24 ZACHARY AVERY OB Services Antepartum Care Only Subsequent Single Visit OB Services Antepartum Care Only Subsequent Single Visit 0502F 06/30 CLEMENTINA DAVILA [facility] Psychiatric Therapy Individual Approximately 45-50 Minutes 06/21 CATHY TOMAS [facility] Test Test 93883 06/18 LUISANA DEVLIN [facility] Gynecologic Services Intrauterine Device (IUD) Insertion Gynecologic Services Intrauterine Device (IUD) Insertion 00467 06/18 LUISANA DEVLIN [facility] Psychiatric Therapy Individual Approximately 45-50 Minutes 06/04 CATHY TOMAS [facility] Vaginal Wet [place] Vaginal [place] 67473 06/04 LUISANA DEVLIN [facility] Social Work Individual Outpatient Counseling 45-50 Minutes 05/17 GENOVEVA CATHY [facility] Psychiatric Therapy Individual Approximately 45-50 Minutes 04/25 CATHY TOMAS [facility] Gynecologic Services Diaphragm Fitting With Instructions Gynecologic Services Diaphragm Fitting With Instructions 31347 02/20 ALYSSA COLÓN [facility] Social Work Individual Outpatient Counseling 45-50 Minutes 01/30 CATHY TOMAS [facility] OB Services Antepartum Care Only Subsequent Single Visit OB Services Antepartum Care Only Subsequent Single Visit 0502F 11/27 CLEMENTINA DAVILA [facility] OB Services Antepartum Care Only Subsequent Single Visit OB Services Antepartum Care Only Subsequent Single Visit 0502F 11/14 GUERRERO DWYER [facility] Non-Physician Phone Call To Patient/Provider Brief (5-10min) Non-Physician Phone Call To Patient/Provider Brief (5-10min) 30967 11/08 GAYE DECKER [facility] Medical Nutrition Therapy Initial A e ment, Intervention Medical Nutrition Therapy Initial Assessment, Intervention 24623 11/03 REYES LOPEZ [facility] Non-Physician Phone Call To Patient/Provider Brief (5-10min) Non-Physician Phone Call To Patient/Provider Brief (5-10min) 29411 10/30 GAYE DECKER OB Services Antepartum Care Only Subsequent Single Visit OB Services Antepartum Care Only Subsequent Single Visit 0502F 10/19 GUERRERO DWYER OB Services Antepartum Care Only Subsequent Single Visit OB Services Antepartum Care Only Subsequent Single Visit 0502F 10/13 GUERRERO DWYER OB Services Antepartum Care Only Subsequent Single Visit OB Services Antepartum Care Only Subsequent Single Visit 0502F 10/06 GUERRERO DWYER Psychiatric Therapy Family (Conjoint) 10/04 CATHY TOMAS [facility] OB Services Antepartum Care Only Subsequent Single Visit OB Services Antepartum Care Only Subsequent Single Visit 0502F 09/25 ERMGUERRERO [place] B [facility] OB Services Antepartum Care Only Subsequent Single Visit OB Services Antepartum Care Only Subsequent Single Visit 0502F 09/21 HATHELMA Delgado [facility] OB Services Antepartum Care Only Subsequent Single Visit OB Services Antepartum Care Only Subsequent Single Visit 0502F 09/15 ERMGUERRERO [place] B [facility] Psychiatric Evaluation Psychiatric Evaluation 43580 09/15 BYRON TOMASAINE [facility] OB Services Antepartum Care Only Subsequent [...] Subsequent Single Visit 0502F 08/17 GUERRERO DWYER B [facility] OB Services Antepartum Care Only Subsequent Single Visit OB Services Antepartum Care Only Subsequent Single Visit 0502F 07/18 ERMGUERRERO [place] B [facility] OB Services Antepartum Care Only Subsequent Single Visit OB Services Antepartum Care Only Subsequent Single Visit 0502F 07/06 VIOLET WALKER [facility] Ultrasound Obstetric Limited Evaluation Ultrasound Obstetric Limited Evaluation 83932 05/25 ERMGUERRERO [place] B [facility] OB Services Antepartum Care Only Subsequent Single Visit OB Services Antepartum Care Only Subsequent Single Visit 0502F 05/25 GUERRERO DWYER [facility] Ultrasound Trans[place] [address] 05/05 CLEMENTINA DAVILA [facility] OB Services Antepartum Care Only Subsequent Single Visit OB Services Antepartum Care Only Subsequent Single Visit 0502F 05/05 CLEMENTINA DAVILA [facility] Ultrasound [place] [address] 05/02 CLEMENTINA DAVILA [facility] OB Services Antepartum Care Only First Visit, With Report OB Services Antepartum Care Only First Visit, With Report 0500F 05/02 CLEMENTINA DAVILA [facility] Non-Physician Phone Call To Patient/Provider Brief (5-10min) Non-Physician Phone Call To Patient/Provider Brief (5-10min) 76086 04/28 EB DOMINGO Delgado [facility] Non-Physician Phone Call To Patient/Provider Brief (5-10min) Non-Physician Phone Call To Patient/Provider Brief (5-10min) [id number] 03/09 JODIE RODRIGUEZ [facility] Non-Physician Phone Call To Patient/Provider Brief (5-10min) Non-Physician Phone Call To Patient/Provider Brief (5-10min) 47225 03/03 JODIE RODRIGUEZ [facility] Electrocardiogram Electrocardiogram 64364 02/21 RAHUL SCHMITT [facility] Psychiatric Evaluation Review of Records and Reports Psychiatric Evaluation Review of Records and Reports 24370 11/14 WICHO SOMMERS [facility] Non-Physician Phone Call To Pt/Provider Intermed (11-20 min) Non-Physician Phone Call To Pt/Provider Intermed (11-20 min) 51761 06/22 JE WHITFIELD [facility] Psychiatric Therapy Individual Approximately 20-30 Minutes Psychiatric Therapy Individual Approximately 20-30 Minutes 74228 01/31 WICHO SOMMERS [facility] Social Work Individual Outpatient Counseling 45-50 Minutes Social Work Individual Outpatient Counseling 45-50 Minutes 18269 01/10 SALOMÓN OLIVAS [facility] Psychiatric Evaluation Comprehensive Examination Psychiatric Evaluation Comprehensive Examination 89663 01/06 KEVIN THURMAN [facility] Test Test 61495 08/05 KELSIE INIGUEZ [facility] Rapid Antigen Identification Streptococcus Group A Beta Hemolytic Rapid Antigen Identification Streptococcus Group A Beta Hemolytic 48252 08/05 MONI BOSS [facility] Non-Physician Phone Call To Patient/Provider Brief (5-10min) Non-Physician Phone Call To Patient/Provider Brief (5-10min) 60767 03/31 GENA FRANKS [facility] Gynecologic Services Intrauterine Device (IUD) Removal Gynecologic Services Intrauterine Device (IUD) Removal 89742 01/22 BRIE CRUZ [facility] Determination Of Refractive State Determination Of Refractive State 89580 12/31 LUZ MUHAMMAD [facility] Ophthalmological New Patient Start Comprehensive Care Ophthalmological New Patient Start Comprehensive Care 05882 12/31 LUZ MUHAMMAD [facility] Non-Physician Phone Call To Patient/Provider Brief (5-10min) Non-Physician Phone Call To Patient/Provider Brief (5-10min) 89300 12/19 VASU CARPENTER [facility] Influenza Virus Vaccine Live Intranasal 08/29 LEXY BRICENO [facility] Immunization Administration One Vaccine Immunization Administration One Vaccine 28488 08/29 LEXY BRICENO [facility] Gynecologic Services Intrauterine Device (IUD) Insertion Gynecologic Services Intrauterine Device (IUD) Insertion 34073 08/20 BRIE CRUZ [facility] Non-Physician Phone Call To Patient/Provider Brief (5-10min) Non-Physician Phone Call To Patient/Provider Brief (5-10min) 48580 08/14 ALDO DAY [facility] Obstetrical Services Care Visit Obstetrical Services Care Visit 0503F 08/06 BRIE CRUZ [facility] OB Services Antepartum Care Only Subsequent Single Visit OB Services Antepartum Care Only Subsequent Single Visit 0502F 06/18 JE ARIZA [facility] Vaginal FEDERICO Prep Vaginal FEDERICO Prep 04710 06/11 BRIE CRUZ [facility] Vaginal Wet [place] Vaginal [place] 76486 06/11 BRIE CRUZ [facility] OB Services Antepartum Care Only Subsequent Single Visit OB Services Antepartum Care Only Subsequent Single Visit 0502F 06/11 BRIE CRUZ [facility] OB Services Antepartum Care Only Subsequent Single Visit OB Services Antepartum Care Only Subsequent Single Visit 0502F 06/03 JE ARIZA [facility] Immunization Administration One Vaccine Immunization Administration One Vaccine 53847 05/16 AL TALBOT [facility] Influenza Split Virus Vaccine Age 3+ Years Intramuscular 05/16 AL TALBOT [facility]D OB Services Antepartum Care Only Subsequent Single Visit OB Services Antepartum Care Only Subsequent Single Visit 0502F 04/16 CESARIO JEFFERY [facility] OB Services Antepartum Care Only Subsequent Single Visit OB Services Antepartum Care Only Subsequent Single Visit 0502F 03/25 MARGARETTE TABARES [facility] OB Services Antepartum Care Only Subsequent Single Visit OB Services Antepartum Care Only Subsequent Single Visit 0502F 02/20 ZACK TOWNSEND [facility] OB Services Antepartum Care Only Subsequent Single Visit OB Services Antepartum Care Only Subsequent Single Visit 0502F 01/23 JE LUNA [facility] Psychiatric Therapy Individual Approximately 20-30 Minutes Psychiatric Therapy Individual Approximately 20-30 Minutes 64127 01/02 YARITZA ORTIZ [facility] OB Services Antepartum Care Only Subsequent Single Visit OB Services Antepartum Care Only Subsequent Single Visit 0502F 01/02 JE LUNA [facility] Intervention And Counseling On Ce ation Of Tobacco Use Intervention And Counseling On Cessation Of Tobacco Use 4000F 10/03 MARGARETTE TABARES [facility] Screening papanicolaou smear; obtaining, preparing and conveyance of cervical or vaginal smear to laboratory 09/18 WANDA FELICIANO [facility] Hepatitis B Vaccine (Active); 20 Years and Above 07/05 ADELINE GU [facility] Immunization Administration One Vaccine Immunization Administration One Vaccine 57129 07/05 ADELINE GU [facility] Hepatitis B Vaccine (Active); 20 Years and Above 04/04 ILA GARCIA [facility] Immunization Administration One Vaccine Immunization Administration One Vaccine 37029 04/04 ILA GARCIA [facility] Social History Combined list of available smoking, tobacco, and other social history from Department of Defense and Veterans Affairs facilities. Social History Type Response Date Comment Sourc e Sexual Orientation Ambula tory Pharmacy Gender identity Ambulator y Pharmacy Sex Representation Female (finding) Unknown Organization This section is an empty soc ial history section. [facility] Assessment and Plan Combined list of future care activities from Department of Defense and Veterans Affairs facilities (e.g., assessment and plan notes, appointments, orders, and referrals). Additional future care activities may be listed in the Plan of Care section. Result Assessment and Plan Date Source Assessment and Plan No data available for this section 03/26/2025 Ambulatory Pharmacy Functional Status Combined list of recent functional and cognitive assessments recorded at Department of Defense and [facility] Affairs ([facility] Functional [place] Measurement (FIM) Scale: 1 = Total Assistance (Subject = 0% +), 2 = Maximal Assistance (Subject = 25% +), 3 = Moderate Assistance (Subject = 50% +), 4 = Minimal Assistance (Subject = 75% +), 5 = Supervision, 6 = Modified [place] (Device), 7 = Complete [place] (Timely, Safely). Assessment Date/Time Source Assessment Type Assessment Skill Assessment Score Assessment Details No data available for this section
--- OUTSIDE RECORDS SUMMARY | 2025-03-26 12:32 | XMS_ITS | Patient Health Record ---
Author Organization [facility] Address [address] [place], [place] [id number] Care Team Providers Care Superintendent Logging Name Role Phone DESTINI Ritter Unavailable [phone] Reason For Referral No Information Medications Medication SIG (Take, Route, Frequency, Duration) Notes Start Date End Date Status amitriptyline hydrochloride 50 MG Oral Tablet ORAL amitriptyline hydrochloride 50 MG Oral TabletOriginal Medicationamitriptyline hydrochloride 50 MG Oral Tablet *Reorder from [facility] for eRx and Interaction Alerts* 5 Active esomeprazole 20 MG Delayed Release Oral Capsule [Nexium] ORAL esomeprazole 20 MG Delayed Release Oral Capsule [Nexium]Original Medicationesomeprazole 20 MG Delayed Release Oral Capsule [Nexium] *Reorder from [facility]O for eRx and Interaction Alerts* 5 Active buspirone hydrochloride 10 MG Oral Tablet [Buspar] ORAL buspirone hydrochloride 10 MG Oral Tablet [Buspar]Original Medicationbuspirone hydrochloride 10 MG Oral Tablet [Buspar] *Reorder from [facility] for eRx and Interaction Alerts* 5 Active Plan Of Treatment No Information Insurance Providers Payer Name Payer Address Payer Phone Subscriber Number Group Number Insured Name Patient Relationship to Insured Coverage Start Date Coverage End Date [employer]ier [place] (Regions 1-6) [address] [place], [place] [id number] MILLIE KIM Self - patient is the insured
--- OUTSIDE RECORDS SUMMARY | 2025-03-26 12:33 | XMS_ITS | Clinical Summary ---
Author Organization [facility] Address [address] [place] [address] Care Team Providers Care Form Building Supervisor Name Role Phone Kesha Quinones MD Unavailable [phone] Sandie Arriola MD Primary Care Provider + Allergies Active Allergy Reactions Criticality Noted Date Comments Citalopram Rash,Swelling,Hives Low 06/12/2020 Tongue swells Escitalopram Rash,Swelling,Throat swelling,Unknown Low 06/12/2020 Tongue swells Fluoxetine Diarrhea 10/13/2013 Pt states that she isn't allergic to this. Metoclopramide Anxiety,Other (see comment),Unknown Low 10/13/2013 Promethazine Unknown 10/13/2013 Sertraline Other (see comment),Unknown 10/13/2013 Worsening depression and insomnia Medications vitamin D3 (VITAMIN D) 25 mcg tablet Take 1 tablet (25 mcg total) by mouth daily. Active vitamin B-12 (CYANOCOBALAMIN) (CYANOCOBALAMIN) 1000 mcg tablet Take 1 tablet (1,000 mcg total) by mouth daily. Active amitriptyline (ELAVIL) 25 MG tabletIndication s:Irritable bowel syndrome with diarrhea Take 1 tablet (25 mg total) by mouth nightly. 90 tablet 3 5 Active prazosin (MINIPRESS) 1 MG capsuleIndicatio ns:PTSD (post-traumatic stress disorder) Take 1 capsule (1 mg total) by mouth nightly at bedtime. 90 capsule 3 5 03/15/20 26 Active amitriptyline (ELAVIL) 25 MG tabletIndication s:Irritable bowel syndrome with diarrhea Take 1 tablet (25 mg total) by mouth nightly. 90 tablet 3 4 03/15/20 25 Discontinue d(Reorder) dicyclomine (BENTYL) 10 MG capsuleIndicatio ns:Irritable bowel syndrome with diarrhea Take 1 capsule (10 mg total) by mouth 4 (four) times daily as needed. 30 capsule 3 4 03/15/20 25 Discontinue d(Therapy completed) SUMAtriptan (IMITREX) 100 MG tabletIndication s:Migraine with aura and without status migrainosus, not intractable Take 1 tablet (100 mg total) by mouth daily as needed for Migraine. Take 1 tablet at onset of symptoms, may take 1 tablet 2 hours later. Max of 2 tablets in 24-hour period. 30 tablet 3 4 03/06/20 25 Active Problems Problem Noted Date Diagnosed Date [...] depre ssed mood 02/29/2024 Cigarette smoker 02/29/2024 Sinusitis 02/29/2024 Irritable bowel syndrome with [...] (03/06/2024): Psychiatry is managing her trazodone. Asthma ([facility]) Locjsbw-Xevug-Yoecx disease Overview (03/06/2024): Saw neurology and tried taking gabapentin but did not tolerate. Managing with symptoms without any intervention at this time. Resolved Problems Problem Noted Date Diagnosed Date Resolved Date Condition influencing health status 02/29/2024 03/06/2024 Encounters Date Type Department Care Team Description 03/15/2025 9:50 AM CDT Office Visit [address] [address] Sandie Arriola MD Annual (Here for annual check. ); Toenail (Her left great toe raises up when she is walking. ) 03/15/[address] [place] [id number] Sandie Arriola MD Record Request 03/15/2025 Travel 03/06/[address] [place] [address] Sandie Arriola MD Lab Order 02/07/2025 Scan HEALTH INFO SRVCS Scanned, [facility] CT (SCAN) 01/24/2025 Scan HEALTH INFO SRVCS Scanned, [facility] Procedure (SCAN) 01/04/2025 Scan HEALTH INFO SRVCS Scanned, [facility] from Last 3 Months Immunizations Immunization Administration Dates Next Due H1N1 Intranasal 2009 Influenza 08/29/2009 Hepatitis A 10/30/2004 Hepatitis A (Havrix [address]) 10/30/2004 Hepatitis B (Generic: Adult) 07/05/2008,04/04/20 08 Influenza (Generic) 07/15/2016, 4,06/10/2012,06/15/2011,1 08/30/2009,05/16/2009 Influenza Adult (Generic) 05/21/2023,05/11/2018, 06/07/2014 Tdap (Generic) 12/01/2023,11/20/2013 Family History Medical History Relation Comments Diabetes Brother No Known Problems Child 1 No Known Problems Child 2 Asthma Daughter Lung Cancer Father Heart Attack Maternal Grandfather Stent Cardiac Maternal Grandfather Stroke Maternal Grandfather Diabetes Maternal Grandmother Heart Disease Maternal Grandmother Hypertension Maternal Grandmother Depression Mother Drug Abuse Mother Mental Health Mother Thyroid Disease Mother Early Hearing Loss Paternal Grandfather Stroke Paternal Grandfather Heart Attack Paternal Grandmother Stent Cardiac Paternal Grandmother Crohns Disease Sister 1 Diabetes Sister 2 Thyroid Disease Sister 2 Relation Status Comments Brother Alive Child 1 Alive Child 2 Alive Daughter Alive Father Maternal Grandfather Maternal Grandmother Mother Alive Paternal Grandfather Paternal Grandmother Alive Sister 1 Alive Sister 2 Alive Social History Tobacco Use Types Packs/Day Years Used Date Smoking Tobacco: Every Day Cigarettes 1 26.4 Started: 1991; L ast attempted to quit: [...] Sex Assigned at Female 08/15/2024 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 Sex Female 8:26 PM CDT Gender Identity Not on file Sexual Orientation Not on file Last Filed Vital Signs Vital Sign Reading Time Taken Comments Blood Pressure 125/72 03/15/2025 9:44 AM CDT Pulse 82 03/15/2025 9:44 AM CDT Temperature 36.4 C (97.5 F) 03/15/2025 9:44 AM CDT Respiratory Rate 17 04/24/2024 10:30 AM CDT Oxygen Saturation 97% 03/15/2025 9:44 AM CDT Inhaled Oxygen Concentration - - Weight 64.7 kg (142 lb 9.6 oz) 03/15/2025 9:44 A M CDT Height 156.2 cm (5' 1.5) 03/15/2025 9:44 AM CDT Body Mass Index 26.51 03/15/2025 9:44 AM CDT Plan of Treatment Upcoming Encounters Date Type Department Care Team (Late st Contact Info) Description 03/19/2026 9:50 AM CDT Office Visit [facility] Family Medicine - [place] [address] [facility] [address] [place] [phone] Sandie Arriola MD [address] [place] [address] Health Maintenance Due Date Last Done Comments Hepatitis C 1995 Pneumococcal Vaccine: Pediatrics (0 to 5 Years) and At-Risk Patients (6 to 49 Years) (1 of 2 - PCV) 1996 Hepatitis B Vaccines (3 of 3 - 19+ 3-dose series) 10/02/2008 07/05/2008, 04/04/2008 Mammogram Screening 2017 COVID-19 Vaccine (3 - 2023-2 5 season) 2024 09/11/2021, 08/14/2021 Annual Physical 03/15/2026 03/15/2025, 03/06/2024 Colorectal Cancer Screening Colonoscopy (10 Years) 11/22/2030 11/22/2020 DTaP, Tdap and Td Vaccines ( 3 - Td or Tdap) 11/30/2033 12/01/2023, 11/20/2013 PHQ-2 (Physician [place]) Completed 08/03/2024 Meningococcal B Vaccine Aged Out No l onger eligible based on patient's age to complete this topic Meningococcal Vaccine Aged Out No willow edvin eligible based on patient's age to complete this topic RSV Immunizations Under 20 Months Aged Out No longer eligible b ased on patient's age to complete this topic Procedures Procedure Name Priority Date/Time Associated Diagnosis Comments CT GENERIC 02/07/2025 PROCEDURE GENERIC (SCAN ORDER) 01/24/2025 COLONOSCOPY GENERIC (SCAN ORDER) 11/22/2020 from Last 3 Months or Most Recently Relevant to Health Maintenance Results * CT GENERIC (02/07/2025) Anatomical Region Laterality Modality Other 02/07/2025 [facility] Scanned SCANNING Final Resu lt * PROCEDURE GENERIC (SCAN ORDER) (01/24/2025) 01/24/2025 [facility] Scanned SCANNING Final Resu lt * COLONOSCOPY GENERIC (SCAN ORDER) (11/22/2020) 11/22/2020 [facility] Scanned SCANNING Final Resu lt from Last 3 Months or Most Recently Relevant to Health Maintenance Insurance Care Teams Form Building Supervisor Relationship Specialty Start Date End Date Sandie Arriola MD [address] [place] [address] PCP - General FAMILY PRACTICE 03/06/24 Kesha Quinones MD [address] [place] [address] Referring Physician KULWINDER 10/08/17
--- OUTSIDE RECORDS SUMMARY | 2025-03-26 12:33 | XMS_ITS | Encounter Summary ---
Author Organization [facility] Address Formerly [facility], [facility] [place] [address] Care Team Providers Care Walking Dragline Operator Name Role Phone Kesha Quinones MD Unavailable [phone] Noel Cerna MD Primary Care Provider [phone] Sandie Arriola MD Primary Care Provider + Encounter Details Date Type Department Care Team (Late st Contact Info) Description 12/12/2021 Abstract [facility] [address] Verna Loera MA Social History Tobacco Use Types Packs/Day Years Used Date Smoking Tobacco: Former Cigarettes 1 - 2015 Electronic Cigarettes Smokeless Tobacco: Current Comments:quit smoking may 21, vapes daily now, was smoking 1/2 to [...] Sex Assigned at Female 08/15/2024 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 - [place] [address] [facility] [address] [place] [id number] Sandie Arriola MD [address] [place] [address] documented as of this encounter Procedures Procedure [...] Final Result * PHOSPHORUS, INORGANIC PHOSPHATE (10/29/2021) Pathologist [facility] PHOSPHORUS 2.8 10/29/2021 us Doc [facility] LABORATORY Final Result * MAGNESIUM (10/29/2021) Pathologist [facility] MAGNESIUM 1.9 10/29/2021 Doc [facility] Abstract LABORATORY Final Result * VITAMIN B-12 (10/29/2021) Pathologist [facility] VITAMIN B12 S/P/B 140 10/29/2021 us Doc [facility] LABORATORY Final Result * FOLATE (OUTSIDE LAB) (10/29/2021) Pathologist [facility] FOLATE 10.9 10/29/2021 Doc [facility] Abstract LAB-OUTSIDE/ABSTRACTED Final Result * HEMOGLOBIN, GLYCOSYLATED (10/29/2021) Pathologist [facility] HGB A1C 5.7 % 10/29/2021 us Doc [facility] Abstract LABORATORY Final Result * CBC (OUTSIDE LAB) (10/29/2021) Pathologist [facility] WBC 6.8 HGB 14.6 HCT 44.7 PLT 338 10/29/2021 us Doc [facility] Abstract LAB-OUTSIDE/ABSTRACTED Final Result * IRON (10/29/2021) IRON 81 10/29/2021 us Doc [facility] LABORATORY Final Result * THYROID STIM HORMONE, TSH (10/29/2021) TSH 1.56 10/29/2021 us Doc [facility] Abstract LABORATORY Edited Resul t - Final documented in this encounter Visit Diagnoses Not on filedocumented in this encounter Care Teams Walking Dragline Operator Relationship Specialty Start Date End Date Noel Cerna MD [address] [place] [address] PCP - General FAMILY PRACTICE 06/04/20 03/05/24 Sandie Arriola MD [address] [place] [id number] PCP - General FAMILY PRACTICE 03/06/24 Kesha Quinones MD [address] [place] [address] Referring Physician OBJAMESN 10/08/17 documented as of this encounter
--- OUTSIDE RECORDS SUMMARY | 2025-03-26 12:34 | XMS_ITS | Patient Health Record ---
Author Organization [facility] [employer] Address [address] [facility] [address] [place] [address] Care Team Providers Care Dance Artist Name Role Phone Sandra Thakur Unavailable [phone] Allergies Allergen (clinical drug ingredient) Drug/Non Drug Allergy documented on EMR Reaction Allergy Type Onset Date Status citalopram CeleXA hives Drug Allergy Active escitalopram Lexapro Unknown Drug Allergy Acti ve metoclopramide Reglan Unknown Drug Allergy Ac tive sertraline Zoloft Unknown Drug Allergy Active Reason For Referral No Information Medications Medication SIG (Take, Route, Frequency, Duration) Notes Start Date End Date Status busPIRone HCl 5 MG Tablet 1 tablet Oral Twice a day; Duration: 90 days Active FLUoxetine HCl 20 MG Capsule 1 capsule O ral Once a day; Duration: 90 days Active SUMAtriptan Succinate 100 MG Tablet TAKE 1 TABLET BY MOUTH NEEDED FOR HEADACHE. MAY REPEAT IN 2 HOURS. MAX OF 2 PER DAY Oral; Duration: 5 Days Active traZODone HCl 50 MG Tablet 1 tablet at b edtime as needed Oral Once a day; Duration: 90 days Active Amitriptyline HCl 25 MG Tablet 1 tablet in the evening Oral Once a day; Duration: 90 days Active lamoTRIgine 25 MG Tablet 1 tab at bedtim e x 2 weeks, then 2 tabs at bedtime Oral once a day 03/01/2024 Active Albuterol Sulfate HFA 108 (90 Base) MCG/ACT Aerosol Solution INHALE 2 PUFFS BY MOUTH EVERY 4 TO 6 HOURS NEEDED Inhalation; Duration: 16 Days Active Ibuprofen 800 MG Tablet Oral; Duration: 6 Days Active Social History Tobacco Use: Social History Observation Description Date Details (start date - stop date) Current Smoker NA - NA Sex Assigned At : Social History Observation Description Sex Assigned At Female Social History Miscellaneous: Social Info Question Answer Notes Safety issues: Are there any firearms in the house? No Social History Social Info Question Answer Notes Household: Marital Status: Number of Adults in household: 4 Number of Children in Household: 2 Level of Education: Finished College Drug/Alcohol: Social Info Question Answer Notes Drugs Have you used drugs other than those for medical reasons in the past 12 months? No AUDIT-C (Standard) Did you have a drink containing alcohol in the past year? Yes How often did you have six or more drinks on one occasion in the past year? Never (0 point) How many drinks did you have on a typical day when you were drinking in the past year? 1 or 2 drinks (0 point) How often did you have a drink containing alcohol in the past year? Monthly or less (1 point) Tobacco Use: Social Info Question Answer Notes Tobacco Control (Standard) Tobacco use: Current smoker How often do you smoke cigarettes? Every day How many cigarettes a day do you smoke? 6-10 How soon after you wake up do you smoke your first cigarette? Within 5 minutes Are you interested in quitting? 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 The other daughter is adrian's girl. from of 16 yrs, she moved out in September. 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 Problems Problem Type SNOMED Code ICD Code Onset Dates Problem Status W/U Status Risk Notes Problem Generalized anxiety disorder (90559056) Generalized anxiety disorder (F41.1) Active confirmed Problem Adjustment disorder with mixed anxiety and depressed mood (203513941) Adjustment disorder with mixed anxiety and depressed mood (F43.23) Active confirmed Problem Insomnia disorder related to another mental disorder (96265523) Insomnia related to another mental disorder (F51.05) Active confirmed Problem Panic disorder (148139472) Panic attacks (F41.0) Active confirmed Problem Moderate recurrent major depression (33771345) Moderate recurrent major depression (F33.1) Active confirmed Encounters Encounter Location Date Provider Diagnosis [facility] [address] [place] [address] 04/05/2024 Sandra Thakur [facility] [address] [place] [id number] 04/06/2024 Sandra [facility] Plan Of Treatment No Information Insurance Providers Payer Name Payer Address Payer Phone Subscriber Number Group Number Insured Name Patient Relationship to Insured Coverage Start Date Coverage End Date [facility] [address] [place] [address] [id number] Shaheen Tori Self - patient is the insured [...]
[2025-03-26 12:36] VITALS: BP 129/69; PULSE 87; RESP 16; TEMP 36.3; O2SAT 98
== END 2025-03-26 13:03 | disposition home or self-care (01) ==
PROVIDERS: Emergency Provider Nurse Practitioner
DX: S40.861A Insect bite (nonvenomous) of right upper arm, initial encounter (principal); L08.9 Local infection of the skin and subcutaneous tissue, unspecified; F17.210 Nicotine dependence, cigarettes, uncomplicated; F17.290 Nicotine dependence, other tobacco product, uncomplicated; J45.909 Unspecified asthma, uncomplicated; E66.9 Obesity, unspecified; Z68.26 Body mass index [BMI] 26.0-26.9, adult; G60.0 Hereditary motor and sensory neuropathy
CPT/HCPCS: 99213; G0463

== ENCOUNTER 2025-04-27 17:48 | Emergency (ER) | payer OTHER, SELFPAY ==
[2025-04-27] VITALS (9 sets, daily range): BP systolic 106–142; BP diastolic 38–92; PULSE 85–90; RESP 16–18; TEMP 36.8; O2SAT 94–100
--- NOTE | ~2025-04-27 | CT_ITS ---
EXAMINATION: CT abdomen pelvis w con DATE: 04/27/2025 20:34 INDICATION: Abdomen pain TECHNIQUE: Computed tomography (CT) of the abdomen and pelvis was performed with intravenous contrast. The dose-length product was 307.87 mGy-cm. Automated exposure control and iterative reconstruction technique were employed. COMPARISON: CT dated 01/2025 FINDINGS: There is dependent atelectasis. Heart size normal. No significant pleural or pericardial effusion. Status post cholecystectomy. The liver, spleen, pancreas, adrenal glands and kidneys are unremarkable. No significant vascular abnormality. No lymphadenopathy. Nonobstructive bowel gas pattern. Status post hysterectomy. No significant pelvic mass or fluid collection. There are follicular changes in the left ovary. No acute osseous abnormality. IMPRESSION: 1. No acute abdominal abnormality. Reviewed, dictated and finalized at location O.
--- OUTSIDE RECORDS SUMMARY | 2025-04-27 17:50 | XMS_ITS | Data Portability ---
Author Organization [facility] Address [address] [place] [address] Care Team Providers Care Coloring Room Man Name Role Phone IVANAISUREKHA Primary Care Provider [phone] Assessment No assessment recorded. Plan of Treatment Reminders Order Date Submit Date Provider Last Modified By Organization Details Last Modified Time Details Appointments FOLLOW UP 2024 01:30P Michel BETANCOURT MD Not available Not available Not available Lab None recorded. Referral None recorded. Procedures None recorded. Surgeries robotic assisted hysterect kevin with salpingec rocio (SURG) 2024 025 [facility] Surgery [facility], [address], [place], [address], 01/24/2025 17:41:47 Imaging None recorded. Medication Orders None recorded. Patient TargetsNo targets recorded. Patient InstructionsNo instructions recorded. Reason for Referral None Reported. Results Created Date Observation Date Name Description Value Unit Range Abnormal Flag Note LastModifiedBy Organization Detail LastModifiedTime 11/22/1911/21/2024 CULTU RE: URINE result report SEE RESULT S BELOW Test: Cultu re: Urine Speci men Sourc e: Urine - Clean Catch Speci men Type: Urine Speci men Date: 2024 1455 Resul t Date: 20242 Resul t Statu s: Final resul t Abnor mal: No Resul ting Lab: [facility] [address] [facility] [address] Tel: CULTU RE ----- ----- ----- --- No growt h in 1 day (dete ction level of 10,00 0 colon ies / ml.) Not Available [facility] (Lab) [address], [place], [address], 11/22/2024 23:05:35 11/22/19 25 11/21/2024 urina lysis , dipst ick Leukocytes - Not Available [facility] [address], [place], [address], 11/21/2024 15:24:28 11/22/19 25 11/21/2024 urina lysis , dipst ick Nitrite - Not Available [facility] [address], [place], [address], 11/21/2024 15:24:28 11/22/19 25 11/21/2024 urina lysis , dipst ick Urobilinogen - Not Available [facility] [address], [place], [address], 11/21/2024 15:24:28 11/22/19 25 11/21/2024 urina lysis , dipst ick Protein trace Not Available [facility] [address], [place], [address], 11/21/2024 15:24:28 11/22/19 25 11/21/2024 urina lysis , dipst ick pH 5 Not Available [facility] [address], [place], [address], 11/21/2024 15:24:28 11/22/19 25 11/21/2024 urina lysis , dipst ick Specific Sterling 1.000 [facility] Available [facility] [address], [place], [address], 11/21/2024 15:24:28 11/22/19 25 11/21/2024 urina lysis , dipst ick Ketone - Not Available [facility] [address], [place], [address], 11/21/2024 15:24:28 11/22/19 25 11/21/2024 urina lysis , dipst ick Bilirubin - Not Available [facility] [address], [place], [address], 11/21/2024 15:24:28 11/22/19 25 11/21/2024 urina lysis , dipst ick Glucose - Not Available [facility] [address], [place], [address], 11/21/2024 15:24:28 11/22/19 25 11/21/2024 urina lysis , dipst ick Appearance cloudy Not Available [facility] [address], [place], [address], 11/21/2024 15:24:28 11/22/19 25 11/21/2024 urina lysis , dipst ick Color light yellow Not Available [facility] [address], [place], [address], 11/21/2024 15:24:28 11/23/19 25 11/22/2024 US, pelvi s No observ ation record ed. [email or web address] [facility] [address], [place], [address], 11/22/2024 13:40:28 11/23/19 25 11/22/2024 US, trans vagin al No observ ation record ed. [email or web address] [facility] [address], [place], [address], 11/22/2024 13:42:01 11/23/19 25 11/22/2024 US, pelvi s No observ ation record ed. [email or web address] [facility] [address], [place], [address], 11/26/2024 21:08:16 Result Notes None recorded. Problems Name Problem SNOMED Code Status Onset Date Resolution Date Notes Provider Name and Address Organization Details Recorded Time Asthma 430673484 Active [facility] 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 5 14:04:02 Insomnia 459750453 Completed 201310/03/[address] [facility] 5 11:59:29 Generalized anxiety disorder 11046331 Completed 201310/03/[address] [facility] 5 11:59:29 Irritable bowel syndrome with diarrhea 205387763 Active [address] [facility] 5 14:04:02 Endometrios is (clinical) 010780298 Active [address] [facility] 5 14:04:02 Gastroesoph ageal reflux disease without esophagitis 050226194 Active [address] [facility] 5 14:04:02 Sinusitis 57314642 Active [address] [facility] 5 14:04:02 Pain in female pelvis 137143600 Active [address] [facility] 5 14:04:02 Cigarette smoker 73357114 Active [address] [facility] 5 14:04:02 Adjustment disorder with mixed anxiety and depressed mood 594126037 Active 2023 Enedelia Africa [facility] 5 14:04:02 Moderate recurrent major depression 40030867 Active 2023 Enedelia Leger [facility], [facility] 5 14:04:02 Panic disorder 922229684 [facility] 14:04:02 Migraine with aura 9148485 Active 2023 [facility], [facility] 5 14:04:02 Prediabetes 055032889 Active [address] [facility] 5 14:04:02 Problem Notes None recorded. Procedures Surgical History Date Name Laterality Status Provider Name and Address Organization Details Recorded Time 025 ROBOTIC ASSISTED HYSTERECTOMY WITH SALPINGECTOMY (SURG) completed Not Available [facility] 01/24/2025 17:41:47 025 LAPAROSCOPY, DIAGNOSTIC (SURG) completed Kesha Carrillo [facility] 12/07/2024 22:54:17 024 Endometrial Ablation with Hysteroscopy completed Chidi Betancourt MD [address], [place], [address], [facility] 08/09/2023 17:52:17 024 Hysteroscopy completed Alayna Chaves [facility] 08/09/2023 14:35:27 024 Endometrial Ablation completed Alayna [facility] 08/09/2023 14:35:41 023 Hysteroscopy completed Chidi Betancourt MD [address], [place], [address], [facility] 02/21/2023 00:07:31 015 Removal of fallopian tube completed [facility] 12/10/2022 15:46:25 010 Cholecystectomy completed [facility] 12/10/2022 15:43:57 Imaging Results None recorded. Procedure Notes None recorded. Medical Equipment None Reported. Allergies Allergen ID Allergen Name Allergen Category Reaction Reaction Severity Criticality Documentation Date Start Date Code Code System Note Provider Name and Address Organization Details Recorded Time promethaz ine medicatio n Not available Not available Not available 11/21/20242013 8745 RxNorm Other react ions and sever ities : 'Unkn own'. [facility] 14:04:01 53978 fluoxetin e medicatio n diarrhea Not available Not available 11/21/20242013 4493 RxNorm [facility] 5 14:04:01 39574 sertralin e medicatio n other Not available Not available 11/21/20242013 94637 RxNorm Other react ions and sever ities : 'Unkn own'. [facility] 5 14:04:01 77431 metoclopr amide Not available other Not available Not available 11/21/20242013 6915 RxNorm Other react ions and sever ities : 'Anxi ety', and 'Unkn own'. [facility] 5 14:04:01 91651 citalopra m medicatio n hives rash swelling Not available Not available Not available Not available 11/21/20242019 2556 RxNorm [facility] 5 14:04:01 55381 escitalop emigdio Not available rash swelling Not available Not available Not available 11/21/20242019 01453 8 RxNorm Other react ions and sever ities : 'Thro at swell ing', and 'Unkn own'. Enedelia Leger [facility] 14:04:01 Medications Name Sig Start Date Stop [...] 1 T PO D FOR 4 DAYS active Not Available Not Available No t Available ibuprofen 800 mg tablet TAKE 1 [...] completed Not Available Not Available Not Available acetaminoph en 300 mg-codeine 30 mg tablet TAKE 1 TABLET BY MOUTH EVERY 6 HOURS NEEDED FOR PAIN. CAN TAKE WITH 600 MG IBUPROFEN . SOFT FOOD AND WATER AT A TIME active Not Available Not Available No t [...] Not Available Not Available No t Available doxycycline monohydrate 100 mg capsule TAKE 1 CAPSULE BY MOUTH TWICE DAILY FOR 10 DAYS active Not Available Not Available No t Available cephalexin 500 mg capsule TAKE 1 CAPSULE BY MOUTH EVERY 12 HOURS FOR 5 DAYS active Not Available Not Available No [...] Not Available Not Available Not Available ibuprofen 600 mg tablet TAKE 1 TABLET BY MOUTH THREE TIMES DAILY active Not Available Not Available No t Available oxycodone-a cetaminophe n 7.5 mg-325 mg [...] completed Not Available Not Available Not Available chlorhexidi ne gluconate 0.12 % mouthwash SWISH 15 ML BY MOUTH FOR 30 SECONDS TWICE DAILY active Not Available Not Available No t Available cholecalcif dylan (vitamin D3) 25 mcg [...] Body mass index (BMI) Body weight Systolic And Diastolic Provider Name and Address Organization Details Last Updated DateTime 12/15/2024 157.48 cm 26.2 kg/m2 97052.71 g 127/78 mm[Hg] Christel Chan [place] [facility] 12/15/2024 10:58:24 Date Recorded Body height Body mass index (BMI) Body weight Systolic And Diastolic Provider Name and Address Organization Details Last Updated DateTime 01/15/2025 157.48 cm 26.7 kg/m2 67481.49 g 117/74 mm[Hg] Christel Chan [facility] 01/15/2025 15:56:01 Date Recorded Body height Body mass index (BMI) Body weight Systolic And Diastolic Provider Name and Address Organization Details Last Updated DateTime 01/30/2025 157.48 cm 25.8 kg/m2 76072.52 g 133/78 mm[Hg] Christel [facility] 01/30/2025 10:18:14 Social History Question Answer Notes LastModified by Fancredizat ion Details LastModified Time Tobacco Smoking Status Current Every Day Sm[facility] 12/10/2022 15:43:35 In The 14 Days Before Symptom Onset, Have You Had Close Contact With A Laboratory-con firmed COVID-19 While That Case Was Ill? No Information not available 12/15/2024 Have You Been To An Area Known To Be High Risk For COVID-19? No Information not available 12/15/2024 Sex: Unknown Functional Status None recorded. Mental Status None [...] available 2022 12:22:39 Medical History Condition Response Anxiety Disorder Y Other Y Anemia Y Asthma Y Depression/ depression Y Gynecological History Statement/Question Response Abnormal Pap Y Flow Light Date of LMP 11/07/2024 On BCP's at Conception? N Was last menstrual period normal Y STIs/STDs Y Current Control Method Sterilizati on Are cycles usually normal Y Sexually Active? N Menses Monthly Y Age of first menstrual cycle 14 Date of Last Pap Smear Sexual Problems? N Desired Control Method Hysterectom y LMP Approximate Obstetrics History GPAL:G 3 P 2 0 1 2 Type Value Full Term 2 Induced 1 Living 2 Total 3 Immunizations Vaccine Type Date Status Note Provider Nam e and Address Organization Details Recorded Time influenza, unspecified formulation 08/28/2013 completed PAULO Willett [facility] 11/21/2024 14:04:03 influenza, unspecified formulation 05/11/2018 completed Enedelia Africa null, [facility] 11/21/2024 14:04:03 influenza, unspecified formulation 05/16/2009 completed Enedelia Romeroton null, [facility] 11/21/2024 14:04:03 influenza, unspecified formulation 05/21/2023 completed Enedelia Romeroton null, [facility] 11/21/2024 14:04:03 influenza, unspecified formulation 06/07/2014 completed Enedelia Africa null, [facility] 11/21/2024 14:04:03 influenza, unspecified formulation 06/10/2012 completed Enedelia Romeroton null, [facility] 11/21/2024 14:04:03 influenza, unspecified formulation 06/15/2011 completed Enedelia Romeroton null, [facility] 11/21/2024 14:04:03 influenza, unspecified formulation 06/30/2010 completed Enedelia Africa null, [facility] 11/21/2024 14:04:03 influenza, unspecified formulation 07/15/2016 completed Enedelia Romeroton null, [facility] 11/21/2024 14:04:03 Tdap 11/20/2013 completed Enedelia Romeroton null, [facility] 11/21/2024 14:04:03 Tdap 12/01/2023 completed Enedelia Africa null, [facility] 11/21/2024 14:04:03 Novel Upagasaey-F1O5-72 , nasal 08/29/2009 completed Enedelia Romeroton null, [facility] 11/21/2024 14:04:03 Hep B, adult 04/04/2008 completed Enedelia Leger null, [facility] 11/21/2024 14:04:03 Hep B, adult 07/05/2008 completed Enedelia Romeroton null, [facility] 11/21/2024 14:04:03 Hep A, adult 10/30/2004 completed Enedelia vora [facility] 11/21/2024 14:04:03 Hep A, unspecified formulation 10/30/2004 completed Enedelia vora [facility] 11/21/2024 14:04:03 Past Encounters Encounter ID Performer Location Encounter Start Date Encounter Closed Date Diagnosis/Indication Diagnosis SNOMED-CT Code Diagnosis ICD10 Code Diagnosis IMO Codes Diagnosis Note [id number] Chidi Betancourt MD [facility] [address],[place] [address] 12/10/2022 15:17:26 12/10/2022 16:55:41 Abnormal uterine bleeding 4302474689 9100 N93.9 Menorrhagia 977919987 N9 2.0 [id number] Chidi Betancourt MD [facility] [address],[place] [address] 12/17/2022 11:57:35 12/17/2022 12:39:09 Menorrhagia 298251683 N92.0 N93.9 [id number] Chidi Betancourt MD [facility] [address],[place] [address] 01/07/2023 10:55:07 01/07/2023 12:35:07 Mass of right breast 5401430784 5495211 N63.10 Abnormal u terine bleeding 1641641316 9100 N93.9 Lesion of endometrium 92 96421404 9101 N85.9 47-year-ol d female with endometria [...] More than 50% was counseling . Overweight 619336535 E66 .3 Preoperative state 17639 002 Z78.9 [id number] Chidi Betancourt MD [facility] [address],[place] [address] 02/18/2023 11:40:04 02/18/2023 13:50:53 Screening procedure 41502722 Z13.9 Lesion of endometrium 92 56653941 9101 N85.9 hysterosco py was performed. She tolerated well. Endocervic al and endometria l curettage performed. [id number] MD Eladio Rushing [address],[place] [address] 02/25/2023 15:39:27 02/25/2023 17:11:08 Disorder of vulva 4730043 N90.9 we 7-year-old female who underwent endometria [...] ns and warning about side effects. Prediabetes 240464694 R7 3.03 [id number] Chidi Betancourt MD [facility] [address],[place] [address] 03/25/2023 12:30:52 03/26/2023 12:47:18 Obesity 504740332 E66.9 47-year-ol d female presents for follow-up [...] ce. More than 50% was counseling . [id number] Chidi Betancourt MD [facility] [address],[place] [address] 04/22/2023 12:46:49 04/22/2023 13:38:29 Obesity 214585836 E66.9 47-year-ol d female presents for follow-up [...] ce. More than 50% was counseling . [id number] Chidi Betancourt MD [facility] [address] [address] 07/01/2023 12:01:51 07/01/2023 17:28:26 Abnormal uterine bleeding 6814622995 9100 N93.9 Menorrhagia 805947434 N9 2.0 N93.9 This patient is a [...] we agreed to perform surgery. Preoperative state 99460 002 Z78.9 [id number] Chidi Betancourt MD [facility] [address],[place] [address] 08/09/2023 13:55:09 08/10/2023 09:15:44 Screening procedure 19130797 Z13.9 Menorrhagia 012056846 N9 2.0 N93.9 endometria l ablation was performed. She tolerated the procedure well. To follow up in 1 week [id number] Chidi Betancourt MD [facility] [address] [address] 11/21/2024 14:00:47 11/21/2024 17:57:12 Pain in pelvis 66181162 R10.2 [id number] Discussed possible causes of pelvic pain.Recom mended pelvic ultrasound to r/o uterine or ovarian abnormalit ies.Recomm ended ultrasound follow-up with .Shubham e taking ibuprofen 600 mg q 8hr PRN for pain.Patie nt is to contact office or go to nearest ED/Urgent care if fever >/= 100.1, pain, excessive bleeding, unusual drainage or swelling in area of concern; or experienci ng worsening sx's or new onset of concerning sx's. Understand ing verbalized . All questions answered to patient satisfacti on. [id number] Chidi Betancourt MD [facility] [address],[place] [address] 11/22/2024 11:35:35 11/22/2024 12:16:06 Pain in pelvis 33308888 R10.2 419768 [id number] Chidi Betancourt MD [facility] [address] [address] 12/01/2024 12:08:09 12/07/2024 17:27:05 Pain in pelvis 41644327 R10.2 [id number] 49-year-ol d female with pelvic pain. We have agreed to perform diagnostic laparoscop y. She understand s risks, benefits, and alternativ es. She has completed the informed consent process is ready to proceed. I spent over 30 minutes on the patient's care in total. [id number] Chidi Betancourt MD [facility] [address],[place] [address] 12/07/2024 09:45:50 12/08/2024 11:30:50 [id number] Chidi Betancourt MD [facility] [address],[place] [address] 12/15/2024 10:42:35 12/15/2024 12:05:53 Pain in pelvis 92225559 R10.2 [id number] 49-year-ol d female who is here for follow-up on pelvic pain. Patient had a diagnostic laparoscop y. She had some adhesiolys is and release of the right round ligament. It seemed to be under tension. She does not recognize any relief of her pain at this point. She would like to proceed with hysterecto my. I believe that is a reasonable treatment for her chronic pelvic pain and endometrio sis which has been present for over 20 years. The patient understand s the procedure. The procedure was described to the patient in great detail. the patient also understand s the risks. The risks were also explained in detail. She understand s that injuries May occur during surgery. She understand s these injuries can result in hospitaliz ation, more surgery, and severe illness. She understand s there is risk of hemorrhage and infection. Spent over 30 minutes on the patient's care in total. We agreed to proceed with robotic assisted hysterecto my and bilateral salpingect kevin. [id number] Chidi Betancourt MD [facility] [address] [address] 01/15/2025 15:42:21 01/17/2025 01:27:34 Pain in pelvis 03932564 R10.2 [id number] this patient is a 49-year-ol d female with longstandi ng pelvic pain. We have agreed to perform robotic assisted total hysterecto my. She understand s the risks, benefits, and alternativ es. She has completed the informed consent process and is ready to proceed. [id number] Chidi Betancourt MD [facility] [address] [address] 01/30/2025 10:13:48 01/30/2025 10:45:18 Surgical follow-up 599475851 Z09 [id number] female Patient presents for postop follow-up. She is 1 week postop from a total robotic hysterecto my bilateral salpingect kevin . She has no complaints . Her incisions are clean dry and intact. She is recovering normally. She will follow-up as needed. [id number] Chidi Betancourt MD [facility] [address] [address] 03/13/2025 12:58:15 03/13/2025 19:42:04 Health Concerns Section Related Observation LastModified by Organization Detai ls LastModified Time None Recorded Concern Status LastModified by Organization Details LastModified Time None Recorded Advance Directives Directive None Recorded Payers Insurance Date Sequence Insurance Name Policy Number Policy Ventura Covered Member ID Ventura Member ID Guarantor Name 04/24/2025 1 WEST - [employer]WEST - PRIME () Dru Jamison [id number] Tori Jamison 12/10/2022 1 FOR LIFE () Dru Jamison [id number] Tori Jamison 11/20/2024 1 EAST - [place] - PRIME () Drunel Jamison [id number] Tori Jamison Notes Date Note Type Note Provider Name and Address Organization Details Recorded Time 12/15/2024 text/html 49-year-old female who is here for follow-up on pelvic pain. Patient had a diagnostic laparoscopy. She had some adhesiolysis and release of the right round ligament. It seemed to be under tension. She does not recognize any relief of her pain at this point. She would like to proceed with hysterectomy. I believe that is a reasonable treatment for her chronic pelvic pain and endometriosis which has been present for over 20 years. The patient understands the procedure. The procedure was described to the patient in great detail. the patient also understands the risks. The risks were also explained in detail. She understands that injuries May occur during surgery. She understands these injuries can result in hospitalization, more surgery, and severe illness. She understands there is risk of hemorrhage and infection. Spent over 30 minutes on the patient's care in total. We agreed to proceed with robotic assisted hysterectomy and bilateral salpingectomy. Chidi Betancourt MD [address], [place], [address], [facility] 12/15/2024 11:35:40 01/15/2025 text/html this patient is a 49-year-old female with longstanding pelvic pain. We have agreed to perform robotic assisted hysterectomy bilateral salpingectomy. She understands the risks, benefits, and alternatives. She has completed the informed consent process and is ready to proceed. The patient understands the procedure. The procedure [...] infection. Chidi Betancourt MD [address], [place], [address], [facility] 01/24/2025 12:29:42 01/30/2025 text/html female Patient presents for postop follow-up. She is 1 week postop from a total robotic hysterectomy bilateral salpingectomy . She has no complaints. Her incisions are clean dry and intact. She is recovering normally. She will follow-up as needed. Chidi Betancourt MD [address], [place], [address], [facility] 01/30/2025 10:45:12 OBGyn Episode Ob Episode Information Episode Created Date Number of Fetuses Patient Bloodtype Patient rh Status Prepregnancy Weight lbs Domestic Partner Domestic Partner Phone Father Name Paperhanger Supervisor Status 12/11/19 23 1 CLOSED Fetus Data [...] Domestic Partner Domestic Partner Phone Father Name Paperhanger Supervisor Status 12/11/19 23 1 CLOSED Fetus Data [...] Domestic Partner Domestic Partner Phone Father Name Paperhanger Supervisor Status 12/11/19 23 1 CLOSED Fetus Data [...]
--- OUTSIDE RECORDS SUMMARY | 2025-04-27 17:50 | XMS_ITS | Encounter Summary ---
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 Legal Sex Female 8:26 PM CDT Gender Identity Not on file Sexual Orientation Not on file documented as of this encounter Plan of Treatment Upcoming Encounters Date Type Department Care Team (Late st Contact Info) Description 03/19/2026 9:50 AM CDT Office Visit [facility] Family Medicine - [place] [address] [facility] [address] [place] [address] Sandie Arriola MD [address] [place] [address] documented as of this encounter Procedures Procedure [...] Result * PHOSPHORUS, INORGANIC PHOSPHATE (10/29/2021) Pathologist [facility] PHOSPHORUS 2.8 10/29/2021 us [facility] LAB[facility]AT[facility] Final Result * MAGNESIUM (10/29/2021) Pathologist [facility] MAGNESIUM 1.9 10/29/2021 Doc [facility] LABORATORY Final Result * VITAMIN B-12 (10/29/2021) Pathologist [facility] VITAMIN B12 S/P/B 140 10/29/2021 us Doc [facility] LABORATORY Final Result * FOLATE (OUTSIDE LAB) (10/29/2021) Pathologist [facility] FOLATE 10.9 10/29/2021 Doc [facility] Abstract LAB-OUTSIDE/ABSTRACTED Final Result * HEMOGLOBIN, GLYCOSYLATED (10/29/2021) Pathologist [facility] HGB A1C 5.7 % 10/29/2021 us Doc [facility] Abstract LABORATORY Final Result * CBC (OUTSIDE LAB) (10/29/2021) Pathologist [facility] WBC 6.8 HGB 14.6 HCT 44.7 PLT 338 10/29/2021 us [facility] Abstract LAB-OUTSIDE/ABSTRACTED Final Result * IRON (10/29/2021) IRON 81 10/29/2021 us Doc [facility] Abstract LABORATORY Final Result * THYROID STIM HORMONE, TSH (10/29/2021) TSH 1.56 10/29/2021 us Doc [facility] Abstract LABORATORY Edited Resul t - Final documented in this encounter Visit Diagnoses Not on filedocumented in this encounter Care Teams Trucksmith Relationship Specialty Start Date End Date Noel Cerna MD [address] [place] [address] PCP - General FAMILY PRACTICE 06/04/20 03/05/24 Sandie Arriola MD [address] [place] [address] PCP - General FAMILY PRACTICE 03/06/24 Kesha Quinones MD [address] [place] [address] Referring Physician OBJAMESN 10/08/17 documented as of this encounter
--- OUTSIDE RECORDS SUMMARY | 2025-04-27 17:50 | XMS_ITS | Clinical Summary ---
Author Organization [facility] [address] [place] [address] Address [address] [place] [address] Care Team Providers Care Golf Cart Assembler Name Role Phone Noel Cerna MD Primary Care Provider [phone] Allergies Active Allergy Reactions Criticality Noted Date Comments Fluoxetine Sertraline Medications No known medications Active Problems Problem Noted Date Diagnosed Date Anxiety disorder 10/03/2013 Irritable bowel syndrome 10/03/2013 Arthralgia of hip 10/03/2013 Insomnia 10/03/2013 Encounters Date Type Department Care Team Description 04/24/2025 12:35 PM CDT - 04/24/2025 11:59 PM CDT Hospital Encounter [facility] [address] [place] [address] Abdominal pain Discharge Disposition: Discharge to home or self care from Last 3 Months Surgical History Surgery Date Site/Laterality Comments UTERINE FIBROID SURGERY Uterine Surgery - (Added by Conv) [place] CHOLECSTOT/CHOLECSTOST W/ EXPL DRG/RMVL ST1 SPX Cholecystotomy - (Added by Conv) Medical History Medical History Date Comments Personal history of other sp ecified conditions History of abnormal Pap smea r - (Added by TW Conv) Social History Tobacco Use Types Packs/Day Years Used Date Smoking Tobacco: Never Assessed Comments Unknown Sex and Gender Information Value Date Recorded Sex Assigned at Not on file Legal Sex Female 1:59 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 Gender Identity Not on file Sexual Orientation Not on file Obstetrics History Last Filed Vital Signs Vital Sign Reading Time Taken Comments Blood Pressure 135/63 04/01/2018 4:28 PM CDT Pulse 92 04/01/2018 4:28 PM CDT Temperature 36.8 C (98.3 F) 04/01/2018 4:28 PM CDT Respiratory Rate - - Oxygen Saturation 100% 04/01/2018 4:28 PM CDT Inhaled Oxygen Concentration - - Weight 61.2 kg (135 lb) 04/01/2018 4:28 PM CDT Height 157.5 cm (5' 2) 04/01/2018 4:28 PM CDT Body Mass Index 24.69 04/01/2018 4:28 PM CDT Plan of Treatment Health Maintenance Due Date Last Done Comments Breast Cancer Screening-Mammogram 1977 Cervical Cancer Screening 1977 Colon Cancer Screening-Colonoscopy 1977 Depression Screening 1977 Hepatitis C Screening 1977 Regular Well Visit/Exam 18-64 1995 Pneumococcal vaccine <65 (1 of 2 - PCV) 1996 Covid-19 Vaccine (3 - 2024-2 6 season) 2025 09/11/2021, 08/14/2021 Influenza Vaccine (#1) 2025 , 05/11/2018, 07/15/2016, Additional history exists DTaP/Tdap/Td Vaccine (3 - Td or Tdap) 11/30/2033 12/01/2023, 11/20/2013 Hepatitis B Screening Completed 07/05/2008, 008 Procedures Procedure Name Priority Date/Time Associated Diagnosis Comments XR ABDOMEN AP 1 VIEW Schedule GARUAV, Read GAURAV (Appt Today, Awaiting Results) 04/24/2025 12:57 PM CDT Abdominal pain from Last 3 Months Results * XR Abdomen Ap 1 Vw (04/24/2025 12:57 PM CDT) Anatomical Region Laterality Modality Body, Abdomen N/A Computed Radiogr aphy 04/24/2025 1:51 PM CDT Narrative 04/24/2025 1:52 PM CDT EXAM DESCRIPTION: XR ABDOMEN AP 1 VIEW REASON FOR STUDY: Abdominal pain Concern for SBO, surgery 01/24/25 hysterectomy, has had issues since, constipation/pain, still taking pain medications from surgery TECHNIQUE: Frontal radiographic view of the abdomen. COMPARISON: None. FINDINGS: Nonobstructive bowel gas pattern. Surgical clips right upper quadrant from cholecystectomy. No abnormal calcifications. Moderate fecal material in the colon. No acute osseous abnormality. IMPRESSION: 1. No evidence of an acute abnormality. 2. Moderate fecal material in the colon. 3. Cholecystectomy. THIS IS AN ELECTRONICALLY VERIFIED FINAL REPORT 04/24/2025 1:52 PM - Electronically signed by Fernando Melendez M.D. T: Report ID: [id number] Reading Location: [id number] Procedure Note Fernando Melendez MD - 04/24/2025 EXAM DESCRIPTION: XR ABDOMEN AP 1 VIEW REASON FOR STUDY: Abdominal pain Concern for SBO, surgery 01/24/25 hysterectomy, has had issues since, constipation/pain, still taking pain medications from surgery TECHNIQUE: Frontal radiographic view of the abdomen. COMPARISON: None. FINDINGS: Nonobstructive bowel gas pattern. Surgical clips right upper quadrant from cholecystectomy. No abnormal calcifications. Moderatefecal material in the colon. No acute osseous abnormality. IMPRESSION: 1. No evidence of an acute abnormality. 2. Moderate fecal material in the colon. 3. Cholecystectomy. THIS IS AN ELECTRONICALLY VERIFIED FINAL REPORT 04/24/2025 1:52 PM - Electronically signed by Fernando Melendez M.D. T: Report ID: [id number] Reading Location: [id number] Raheem Menjivar MD IMG XR PROCEDURES Final Result from Last 3 Months Insurance [facility] Care Teams Golf Cart Assembler Relationship Specialty Start Date End Date Noel Cerna MD [address] [facility] [address] [place] [address] PCP - General Family Medicine 07/12/23
--- OUTSIDE RECORDS SUMMARY | 2025-04-27 17:50 | XMS_ITS | Patient Health Record ---
Author Organization [facility] Address [address] [place], [place] [address] Care Team Providers Care Home Appliance Tech Name Role Phone DESTINI Ritter Unavailable [phone] Reason For Referral No Information Medications Medication SIG (Take, Route, Frequency, Duration) Notes Start Date End Date Status amitriptyline hydrochloride 50 MG Oral Tablet ORAL amitriptyline hydrochloride 50 MG Oral TabletOriginal Medicationamitriptyline hydrochloride 50 MG Oral Tablet *Reorder from [employer] for eRx and Interaction Alerts* 5 Active esomeprazole 20 MG Delayed Release Oral Capsule [Nexium] ORAL esomeprazole 20 MG Delayed Release Oral Capsule [Nexium]Original Medicationesomeprazole 20 MG Delayed Release Oral Capsule [Nexium] *Reorder from [employer] for eRx and Interaction Alerts* 5 Active buspirone hydrochloride 10 MG Oral Tablet [Buspar] ORAL buspirone hydrochloride 10 MG Oral Tablet [Buspar]Original Medicationbuspirone hydrochloride 10 MG Oral Tablet [Buspar] *Reorder from [employer] for eRx and Interaction Alerts* 5 Active Plan Of Treatment No Information Insurance Providers Payer Name Payer Address Payer Phone Subscriber Number Group Number Insured Name Patient Relationship to Insured Coverage Start Date Coverage End Date Reinier Murrieta (Regions 1-6) [address] [place], [place] [id number] MILLIE KIM Self - patient is the insured
--- OUTSIDE RECORDS SUMMARY | 2025-04-27 17:50 | XMS_ITS | Clinical Summary ---
Author Organization [facility] Address [address] [place] [address] Care Team Providers Care Electronics Hardware Design Engineer Name Role Phone Kesha Quinones MD Unavailable [phone] Sandie Arriola MD Primary Care Provider + [...] total) by mouth daily. Active vitamin B-12 (CYANOCOBALAMIN ) (CYANOCOBALAMIN ) 1000 mcg tablet Take 1 tablet (1,000 mcg total) by mouth daily. Active amitriptyline (ELAVIL) 25 MG tabletIndicatio ns:Irritable bowel syndrome with diarrhea Take 1 tablet (25 mg total) by mouth nightly. 90 tablet 3 03/15/2025 Active prazosin (MINIPRESS) 1 MG capsuleIndicati ons:PTSD (post-traumatic stress disorder) Take 1 capsule (1 mg total) by mouth nightly at bedtime. 90 capsule 3 03/15/2025 Active Active Problems Problem Noted Date Diagnosed [...] (03/06/2024): Psychiatry is managing her trazodone. 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 Managing with symptoms without any intervention at this time. Resolved Problems Problem Noted Date Diagnosed Date Resolved Date Condition influencing health status 02/29/2024 03/06/2024 Encounters Date Type Department Care Team Description 04/23/[address] [place] [address] Sandie Arriola MD Referral 04/23/[address] [place] [address] Sandie Arriola MD Referral 03/15/2025 9:50 AM CDT Office Visit [address] [place] [address] Sandie Arriola MD Annual (Here for annual check. ); Toenail (Her left great toe raises up when she is walking. 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 Legal Sex Female 8:26 PM CDT Gender [...] Description 03/19/2026 9:50 AM CDT Office Visit [facility] Family Medicine - [place] [address] [place] [address] Sandie Arriola MD [address] [place], [place] [id number] Health Maintenance Due Date Last Done Comments Hepatitis C 1995 Pneumococcal Vaccine: Pediatrics (0 to 5 Years) and At-Risk Patients (6 to 49 Years) (1 of 2 - PCV) 1996 Hepatitis B Vaccines (3 of 3 - 19+ 3-dose series) 10/02/2008 07/05/2008, 04/04/2008 Mammogram Screening 2017 COVID-19 Vaccine (3 - 2024-2 6 season) 2025 09/11/2021, 08/14/2021 Annual Physical 03/15/2026 03/15/2025, 03/06/2024 Colorectal Cancer Screening Colonoscopy (10 Years) 11/22/2030 11/22/2020 DTaP, Tdap and Td Vaccines ( 3 - Td or Tdap) 11/30/2033 12/01/2023, 11/20/2013 PHQ-2 (Physician [place]) Completed 08/03/2024 Meningococcal B Vaccine Aged Out [...] Date/Time Associated Diagnosis Comments CT GENERIC 02/07/2025 COLONOSCOPY GENERIC (SCAN ORDER) 11/22/2020 from Last 3 Months or Most Recently Relevant to Health Maintenance Results * CT GENERIC (02/07/2025) Anatomical Region Laterality Modality Other 02/07/2025 us [facility] Scanned SCANNING Final Resu lt * COLONOSCOPY GENERIC (SCAN ORDER) (11/22/2020) 11/22/2020 us [facility] Scanned SCANNING Final Resu lt from Last 3 Months or Most Recently Relevant to Health Maintenance Insurance [place] [address] Care Teams Electronics Hardware Design Engineer Relationship Specialty Start Date End Date Sandie Arriola MD [address] [place] [address] PCP - General FAMILY PRACTICE 03/06/24 Kesha Quinones MD [address] [place], [place] [address] Referring Physician OBGYN 10/08/17
--- OUTSIDE RECORDS SUMMARY | 2025-04-27 17:51 | XMS_ITS | Patient Health Record ---
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 The other daughter is adrian's girl. from of 16 yrs, she moved out in September. 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 Problems Problem Type SNOMED Code ICD Code Onset Dates Problem Status W/U Status Risk Notes Problem Generalized anxiety disorder (22484316) Generalized anxiety disorder (F41.1) Active confirmed Problem Adjustment disorder with mixed anxiety and depressed mood (733881749) Adjustment disorder with mixed anxiety and depressed mood (F43.23) Active confirmed Problem Insomnia disorder related to another mental disorder (16440790) Insomnia related to another mental disorder (F51.05) Active confirmed Problem Panic disorder (113807268) Panic attacks (F41.0) Active confirmed Problem Moderate recurrent major depression (80879319) Moderate recurrent major depression (F33.1) Active confirmed Plan Of Treatment No Information Insurance Providers Payer Name Payer Address Payer Phone Subscriber Number Group Number Insured Name Patient Relationship to Insured Coverage Start Date Coverage End Date [facility] [address] [place] [address] [id number] Tori Jamison Self - patient is the [...]
[2025-04-27 19:05] LABS: Need Manual Microscopic Reviewed; Non Pathogenic Casts 0-2
[2025-04-27 19:06] LABS: Add Urine Microscopic? YES; Appearance Urine Cloudy (Clear); Glucose Urine UA Negative (Negative); Leukocyte Esterase Ur 3+ LEU/UL (Negative); Nitrate Urine Negative (Negative); Specific Grav Ur 1.004 (1.001-1.035)
--- OUTSIDE RECORDS SUMMARY | 2025-04-27 19:39 | XMS_ITS | Clinical Summary ---
Author Organization [facility] [address] [place] [address] Address [address] [place] [address] Care Team Providers Care Abalone Sheller Name Role Phone Noel Cerna MD Primary Care Provider [phone] Allergies Active Allergy Reactions Criticality Noted Date Comments Fluoxetine Sertraline Medications No known medications Active Problems Problem Noted Date Diagnosed Date Anxiety disorder 10/03/2013 Irritable bowel syndrome 10/03/2013 Arthralgia of hip 10/03/2013 Insomnia 10/03/2013 Encounters Date Type Department Care Team Description 04/24/2025 12:35 PM CDT - 04/24/2025 11:59 PM CDT Hospital Encounter [facility] Diagnostic Imaging [address] [place] [address] Abdominal pain Discharge Disposition: Discharge to home or self care from Last 3 Months Surgical History Surgery Date Site/Laterality Comments UTERINE FIBROID SURGERY Uterine Surgery - (Added by Conv) [place] CHOLECSTOT/CHOLECSTOST W/ EXPL DRG/RMVL ST1 SPX Cholecystotomy [...] on file Legal Sex Female 1:59 AM DAM ATTENDANT Gender Identity Not on file Sexual Orientation [...] Comments XR ABDOMEN AP 1 VIEW Schedule GAURAV, Read GAURAV (Appt Today, Awaiting Results) 04/24/2025 [...] by Fernando Melendez M.D. T: Report ID: [id number] Reading Location: [id number] Procedure Note Fernando Melendez MD - 04/24/2025 [...] by Fernando Melendez M.D. T: Report ID: [id number] Reading Location: [id number] Raheem Menjivar MD IMG XR PROCEDURES Final Result from Last 3 Months Insurance [facility] Care Teams Abalone Sheller Relationship Specialty Start Date End Date Noel Cerna MD [address] [facility] [address] [place] [address] PCP - General Family Medicine 07/12/23
--- OUTSIDE RECORDS SUMMARY | 2025-04-27 19:39 | XMS_ITS | Clinical Summary ---
Author Organization [facility] Address [address] [place] [address] Care Team Providers Care Parking Meter Collector Name Role Phone Kesha Quinones MD Unavailable [phone] Sandie Arriola MD Primary Care Provider + [...] Psychiatry is managing her trazodone. Ast[facility] ([facility]) Obqeevt-Mcucv-Hqugc disease Overview (03/06/2024): Saw neurology and tried taking gabapentin but did not tolerate. Managing with symptoms without any intervention at this time. Resolved Problems Problem Noted Date Diagnosed Date Resolved Date Condition influencing health status 02/29/2024 03/06/2024 Encounters Date Type Department Care Team Description 04/23/[address] [place] [address] Sandie Arriola MD Referral 04/23/[address] [place] [address] Sandie Arriola MD Referral 03/15/2025 9:50 AM CDT Office Visit [address] [place] [address] Sandie Arriola MD Annual (Here for annual check. ); Toenail (Her left great toe raises up when she is walking. 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 Legal Sex Female 8:26 PM CDT Gender [...] Description 03/19/2026 9:50 AM CDT Office Visit [facility] Family Medicine - [place] [address] [place] [address] Sandie Arriola MD [address] [place], [place] [id number] Health Maintenance Due Date Last Done Comments [...] or Tdap) 11/30/2033 12/01/2023, 11/20/2013 PHQ-2 (Physician [place]) Completed 08/03/2024 Meningococcal B Vaccine Aged Out [...] Anatomical Region Laterality Modality Other 02/07/2025 us [facility] Scanned SCANNING Final Resu lt * COLONOSCOPY GENERIC (SCAN ORDER) (11/22/2020) 11/22/2020 us [facility] Scanned SCANNING Final Resu lt from Last 3 Months or Most Recently Relevant to Health Maintenance Insurance [place] [address] Care Teams Parking Meter Collector Relationship Specialty Start Date End Date Sandie Arriola MD [address] [place] [address] PCP - General FAMILY PRACTICE 03/06/24 Kesha Quinones MD [address] [place], [place] [address] Referring Physician OBGYN 10/08/17
--- OUTSIDE RECORDS SUMMARY | 2025-04-27 19:39 | XMS_ITS | Encounter Summary ---
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 Legal Sex Female 8:26 PM CDT Gender Identity Not on file Sexual Orientation Not on file documented as of this encounter Plan of Treatment Upcoming Encounters Date Type Department Care Team (Late st Contact Info) Description 03/19/2026 9:50 AM CDT Office Visit [facility] Family Medicine - [place] [address] [facility] [address] [place] [address] Sandie Arriola MD [address] [place] [address] documented as of this encounter Procedures Procedure [...] Result * PHOSPHORUS, INORGANIC PHOSPHATE (10/29/2021) Pathologist [facility] PHOSPHORUS 2.8 10/29/2021 us Doc [facility] LABORATORY Final Result * MAGNESIUM (10/29/2021) Pathologist [facility] MAGNESIUM 1.9 10/29/2021 Doc [facility] Abstract LABORATORY Final Result * VITAMIN B-12 (10/29/2021) Pathologist [facility] VITAMIN B12 S/P/B 140 10/29/2021 us Doc [facility] LABORATORY Final Result * FOLATE (OUTSIDE LAB) (10/29/2021) Pathologist [facility] FOLATE 10.9 10/29/2021 Doc [facility] Abstract LAB-OUTSIDE/ABSTRACTED Final Result * HEMOGLOBIN, GLYCOSYLATED (10/29/2021) Pathologist [facility] HGB A1C 5.7 % 10/29/2021 us Doc [facility] LABORATORY Final Result * CBC (OUTSIDE LAB) (10/29/2021) Pathologist [facility] WBC 6.8 HGB 14.6 HCT 44.7 PLT 338 10/29/2021 us Doc [facility] Abstract LAB-OUTSIDE/ABSTRACTED Final Result * IRON (10/29/2021) IRON 81 10/29/2021 us Doc [facility] Abstract LABORATORY Final Result * THYROID STIM HORMONE, TSH (10/29/2021) TSH 1.56 10/29/2021 us Doc [facility] Abstract LABORATORY Edited Resul t - Final documented in this encounter Visit Diagnoses Not on filedocumented in this encounter Care Teams Nuclear Power Plant Engineer Relationship Specialty Start Date End Date Noel Cerna MD [address] [place] [address] PCP - General FAMILY PRACTICE 06/04/20 03/05/24 Sandie Arriola MD [address] [place] [address] PCP - General FAMILY PRACTICE 03/06/24 Kesha Quinones MD [address] [place] [address] Referring Physician OBJAMESN 10/08/17 documented as of this encounter
[2025-04-27] MEDS: SODIUM CHLORIDE 0.9% IV 1,000 ML 999 ML IV CONT (19:50)
[2025-04-27 19:58] LABS: Hematocrit 44.8 % (37.0-47.0); Hemoglobin 14.7 g/dL (12.0-15.0); Immature Granulocyte Percent A 0.6 % (0-0.5); Lymphocytes Absolute Auto 3.06 K/mm3 (0.9-3.2); Mean Corpuscular HGB Conc 32.8 g/dl (32-36); Mean Corpuscular Hemoglobin 29.8 pg (26-34); Mean Corpuscular Volume 90.7 fl (80-100); Nucleated Red Blood Cells Absolute Auto 0.000 K/mm3 (0.0-0.012); Nucleated Red Blood Cells Perc 0.0 % (0.0-0.2); Platelet Count Result 365 k/mm3 (150-375); Red Blood Count 4.94 M/mm3 (4.2-5.4); White Blood Count 14.4 K/mm3 (4.5-10.0)
[2025-04-27 20:10] LABS: Alanine Aminotransferase 27 U/L (6-35); Albumin Level 4.0 g/dL (3.5-5.1); Alkaline Phosphatase 89 U/L (38-126); Anion Gap 7 mmol/L (4-12); Aspartate Amino Transferase 24 U/L (14-36); Bilirubin,Total 0.3 mg/dL (0.2-1.3); Blood Urea Nitrogen 10 mg/dL (7-17); Calcium 9.1 mg/dL (8.4-10.2); Carbon Dioxide 27 mmol/L (22-30); Chloride 103 mmol/L (98-107); Estimated CRCL calculation 72 ml/min; Estimated Glomerular Filt Rate > 60; Glucose 92 mg/dL (65-110); Lipase 32 U/L (23-300); Magnesium 2.0 mg/dL (1.6-2.3); Potassium 3.8 mmol/L (3.4-5.0); Sodium 137 mmol/L (137-145); Total Protein 7.0 g/dL (6.3-8.2)
[2025-04-27] MEDS: MORPHINE SULFATE (*CRX) 4 MG/ML INJ IV PUSH (20:10)
[2025-04-27] MEDS: ONDANSETRON INJ 4 MG/2 ML VIAL IV PUSH (20:10)
--- NOTE | 2025-04-27 20:54 | ED.FEMALEGU ---
HPI - Female Genitourinary General Chief complaint: Urogenital-Female Stated complaint: blood in urine Time Seen by Provider: 04/27/25 19:19 History of Present Illness HPI Narrative: Patient is a 49-year-old female who presents the emergency department this evening complaining of lower abdominal pain. Patient states that she had a hysterectomy on January 24 and today had sex for the 1st time since her hysterectomy which she feels as though has worsened her abdominal pain. She has noticed some hematuria as well with small clots in her urine. Also complains of dysuria. Otherwise denies any additional symptoms or concerns. Related Data Home Medications ?Medication ?Instructions ?Recorded ?Confirmed ?Last Taken ?Type amitriptyline 25 mg tablet 25 mg PO HS 12/04/21 01/22/25 12/06/24 History albuterol sulfate 90 mcg/actuation 2 puff inhalation Q6H PRN 10/05/24 01/22/25 Unknown History aerosol inhaler shortness of breath or wheezing hydrocodone 5 mg-acetaminophen 325 1 tablet PO Q6H PRN pain 12/05/24 01/22/25 Unknown History mg tablet cholecalciferol (vitamin D3) 25 50 mcg PO DAILY 01/22/25 01/22/25 Unknown History mcg (1,000 unit) capsule (Vitamin D3) Allergies Allergy/AdvReac Type Severity Reaction Status Date / Time escitalopram (From Lexapro) Allergy Mild Unknown Verified 04/27/25 18:24 metoclopramide (From Reglan) AdvReac Mild Unknown Verified 04/27/25 18:24 sertraline AdvReac Unknown INTENSIFIES Verified 04/27/25 18:24 ANXIETY Review of Systems Review of Systems: All systems are reviewed and are negative unless stated otherwise in the HPI. [facility] Past Medical History Medical History Anxiety Seasonal asthma Lxbxbqo-Zsgwk-Jeurq disease Obesity Dyspepsia Enterocolitis Belching Gas bloat syndrome Irritable bowel syndrome with diarrhea History of migraine Irritable bowel syndrome Surgical History Surgical History No pertinent past surgical history Social History Social History Years smoked: 26 Smoking status: Current every day smoker Tobacco type: cigarettes and e-cigarettes/vaping Additional smoking assessment comments: Vapes inside, smokes outside. Alcohol intake: current Substance use type: marijuana Other substance usage details: Every now and then for sleep Living arrangements: with family Spiritual care concerns: No Exam Narrative: General: Alert, awake, afebrile, in no acute distress. HEENT: PERRL, no rhinorrhea, no post nasal drip, oropharynx clear. Neck: Trachea midline, no JVD, no lymphadenopathy. Cardiovascular: Regular rate and rhythm, no murmurs, rubs or gallops, no peripheral edema. Respiratory: Clear to auscultation bilaterally, no tachypnea, no wheezing, no rhonchi, no rubs, no respiratory distress. Abdomen: Soft, nontender, nondistended, no rebound, no guarding, no peritoneal signs. Musculoskeletal: No joint swelling or deformity, normal muscle tone. Skin: No rashes or petechia, no signs of infection. Psychiatric: Alert and oriented, normal behavior and judgment for situation. Neurological: Alert and oriented to person, place, and time. Follows all commands. No focal deficits, speech is clear and fluent. Course Vital Signs Vital signs: Vital Signs Temperature 98.2 F 04/27/25 18:18 Pulse Rate 85 04/27/25 18:18 Respiratory Rate 16 04/27/25 18:18 Blood Pressure 142/92 H 04/27/25 18:18 Pulse Oximetry 100 04/27/25 18:18 Temperature 98.2 F 04/27/25 18:18 Pulse Rate 90 04/27/25 20:16 Respiratory Rate 18 04/27/25 20:16 Blood Pressure 113/60 04/27/25 20:16 Pulse Oximetry 94 04/27/25 20:16 MDM - Female Genitourinary MDM Narrative Medical decision making narrative: The patient was evaluated by myself in the emergency department. History is obtained from patient who is an independent historian and physical exam was performed. External medical records were reviewed at this time. IV was established and pertinent tests were ordered. Patient was administered 4 mg IV morphine and 4 mg IV Zofran. Laboratory results obtained revealing leukocytosis of 14.4 otherwise unremarkable. Urinalysis did reveal urinary tract infection with 3+ blood, 3+ leuk esterases, greater than 100 RBCs and greater than 100 wbc's. At this time patient was administered 1 L IV fluid bolus with normal saline and 1 g of IV Rocephin for her UTI. She was also administered 200 mg of PO peridium. Imaging studies obtained included CT abdomen pelvis with IV contrast which was independently interpreted by me revealing no acute process, which is pending final radiology interpretation. Differential diagnosis considerations include pyelonephritis, kidney stones, renal colic, cystitis, UTI. Comorbidities impacting this visit include none. I have evaluated and discussed social determinants of health with the patient that could potentially impact subsequent diagnosis and treatment plans. On repeat assessment of the patient, reevaluation revealed that the patient is doing well and is in no acute distress. Patient symptoms have improved since she arrived to our emergency department. Repeat vital signs were all reviewed and noted to be stable. Differential diagnosis and treatment plan were discussed with the patient at bedside. Patient agrees with discussion and after shared medical decision making agrees with discharge. All questions were answered to the patient's satisfaction. Patient will follow up with PCP/OB in 3-5 days. Script for cephalexin was sent to patient's pharmacy to take as prescribed for her UTI. Patient was provided with strict return precautions and instructed to return to the emergency department if any new or worsening symptoms develop. The patient was discharged in stable condition. Lab Data 04/27/25 19:51 04/27/25 19:51 Labs: Lab Results 04/27/25 04/27/25 Range/Units 18:33 19:51 WBC 14.4 H (4.5-10.0) K/mm3 RBC 4.94 (4.2-5.4) M/mm3 Hgb 14.7 (12.0-15.0) g/dL Hct 44.8 (37.0-47.0) % MCV 90.7 (80-100) fl MCH 29.8 (26-34) pg MCHC 32.8 (32-36) g/dl RDW 13.2 (11.5-14.5) % Plt Count 365 (150-375) k/mm3 MPV 8.7 (7.4-10.4) fl Immature Gran % (Auto) 0.6 H (0-0.5) % Neut % (Auto) 71.7 (45.5-73.1) % Lymph % (Auto) 21.2 (18.3-44.2) % [place] % (Auto) 5.0 (2.6-8.5) % Eos % (Auto) 1.2 (0-4.4) % Baso % (Auto) 0.3 (0.2-1.2) % Lymph # (Auto) 3.06 (0.9-3.2) K/mm3 [place] # (Auto) 0.7 H (0.1-0.6) K/mm3 Eos # (Auto) 0.2 (0-0.3) K/mm3 Baso # (Auto) 0.0 (0.0-0.1) K/mm3 Abs Immat Gran (auto) 0.09 H (0.00-0.031) K/mm3 Absolute Neuts (auto) 10.3 H (1.3-6.7) K/mm3 Absolute Nucleated RBC 0.000 (0.0-0.012) K/mm3 Nucleated RBC % 0.0 (0.0-0.2) % Sodium 137 (137-145) mmol/L Potassium 3.8 (3.4-5.0) mmol/L Chloride 103 (98-107) mmol/L Carbon Dioxide 27 (22-30) mmol/L Anion Gap 7 (4-12) mmol/L BUN 10 (7-17) mg/dL Creatinine 0.65 L (0.7-1.0) mg/dL Estim Creat Clear Calc 72 ml/min Estimated GFR > 60 (59 - ) Glucose 92 (65-110) mg/dL Calcium 9.1 (8.4-10.2) mg/dL Magnesium 2.0 (1.6-2.3) mg/dL Total Bilirubin 0.3 (0.2-1.3) mg/dL AST 24 (14-36) U/L ALT 27 (6-35) U/L Alkaline Phosphatase 89 (38-126) U/L Total Protein 7.0 (6.3-8.2) g/dL Albumin 4.0 (3.5-5.1) g/dL Lipase 32 (23-300) U/L Urine Color Red H (Yellow) Urine Appearance Cloudy H (Clear) Urine pH 6.5 (5.0-9.0) Ur Specific [place] 1.004 (1.001-1.035) Urine Protein 3+ H (Negative) mg/dL Urine Glucose (UA) Negative (Negative) mg/dL Urine Ketones Negative (Negative) mg/dL Ur Blood (Man) 3+ H (Negative) Urine Nitrate Negative (Negative) Urine Bilirubin 1+ H (Negative) Urine Urobilinogen 0.2 (<2.0) mg/dL Add Ur Microanalysis Reviewed Leukocyte Esterase Rfl 3+ H (Negative) LISBETH/UL Urine RBC >100 H (0-2) /hpf Urine WBC >100 H (0-3) /hpf Ur Squamous Epith Cells None seen (Few) /hpf Urine Bacteria None seen /hpf Urine Casts 0-2 Urine Mucus Present /lpf Discharge Plan Discharge Clinical Impression: UTI (urinary tract infection) Patient Disposition: Home Condition: Improved Instructions: Antibiotic Form, Urinary Tract Infection in Women (ED) Additional Instructions: Please follow-up with your family doctor/OBGYN within the next 3-5 days. Return to the ED if any new or worsening symptoms develop. Take the prescribed antibiotic as instructed for UTI. Patient Language: Serbian Prescriptions: New cephalexin 500 mg capsule 500 mg PO Q12H 7 Days Qty: 14 0RF No Action amitriptyline 25 mg tablet 25 mg PO HS doxycycline monohydrate 100 mg capsule 100 mg PO BID 10 Days Qty: 20 0RF albuterol sulfate 90 mcg/actuation HFA aerosol inhaler 2 puff INHALATION Q6H PRN (Reason: shortness of breath or wheezing) hydrocodone-acetaminophen 5-325 mg tablet 1 tablet PO Q6H PRN (Reason: pain) cholecalciferol (vitamin D3) [Vitamin D3] 25 mcg (1,000 unit) capsule 50 mcg PO DAILY hydrocodone-acetaminophen 5-325 mg tablet 1 - 2 tablet PO Q6H PRN (Reason: pain) Qty: 25 0RF ibuprofen 600 mg tablet 600 mg PO TID Qty: 20 0RF cephalexin 500 mg capsule 500 mg PO Q12H 5 Days Qty: 10 0RF Follow-up/Referrals: Chidi Betancourt MD [Physician, FLIGHT DIRECTOR] - 3 Days UNKNOWN,DOCTOR [Primary Care Provider] Time of Disposition: 20:54
[2025-04-27] MEDS: cefTRIAXone 1 GM in SODIUM CHLORIDE 0.9% IV 50 ML 100 ML IVPB (21:03)
[2025-04-27] MEDS: PHENAZOPYRIDINE HCL 100 MG TABLET 200 MG PO (21:04)
== END 2025-04-27 21:32 | disposition home or self-care (01) ==
PROVIDERS: Physician Assistant; Emergency Provider Emergency Medicine
DX: N39.0 Urinary tract infection, site not specified (principal); G60.0 Hereditary motor and sensory neuropathy; K58.0 Irritable bowel syndrome with diarrhea; F41.9 Anxiety disorder, unspecified; F17.290 Nicotine dependence, other tobacco product, uncomplicated; Z90.710 Acquired absence of both cervix and uterus; Z79.899 Other long term (current) drug therapy
CPT/HCPCS: 36415; 74177; 80053; 81001; 83690; 83735; 85025; 87077; 87086; 87186; 96361; 96365; 96375; 99284; A9270; J0696; J2270; J2405; J7030; Q9967